=== PATIENT | male | born 1945 | race Caucasian/White ===

== ENCOUNTER 2018-01-26 20:01 | Inpatient (IN) | payer MEDICARE ==
[2018-01-26] MEDS ORDERED: methylPREDNISolone SOD SUCCI 125 MG/2 ML VIAL IV STA (20:17)
[2018-01-26] MEDS ORDERED: IPRATROPIUM 0.5 MG/2.5 ML NEBU INHALATION STA (20:17)
[2018-01-26] MEDS ORDERED: ALBUTEROL NEBULIZED 2.5 MG/3 ML INHALATION STA (20:17)
[2018-01-26 20:51] LABS: Basophils % (A) 0 %; Eosinophils % (A) 0 %; HCT 42.5 % (39.0-53.0); HGB 13.4 gm/dL (13.0-17.5); Lymphocytes # (A) 0.3 k/uL (1.0-4.8); Lymphocytes % (A) 2 %; MCH 30.3 pg (25.0-35.0); MCHC 31.6 g/dL (31.0-37.0); MCV 95.8 fL (80.0-100.0); Mean Platelet Volume 7.2; Monocytes # (A) 0.6 k/uL (0-1.0); Monocytes % (A) 4 %; Neutrophils # (A) 12.2 k/uL (1.3-7.7); Neutrophils % (A) 93 %; Platelet Count 201 k/uL (150-450); RBC 4.44 m/uL (4.30-5.90); RDW 14.7 % (11.5-15.5); WBC 13.2 k/uL (3.8-10.6)
--- NOTE | 2018-01-26 21:00 | XR ---
EXAMINATION TYPE: XR chest 1V portable DATE OF EXAM: 01/26/2018 COMPARISON: NONE HISTORY: Difficulty breathing TECHNIQUE: Single frontal view of the chest is obtained. FINDINGS: Heart appears enlarged. There is some pulmonary interstitial edema. There is very minimal blunting of the costophrenic angles. There are chest leads. IMPRESSION: Changes consistent with mild congestive heart failure.
[2018-01-26 21:01] LABS: INR 1.1 (<1.2); Partial Thromboplastin Time 23.3 sec (22.0-30.0); Prothrombin Time 10.4 sec (9.0-12.0)
[2018-01-26 21:07] LABS: Albumin 4.2 g/dL (3.5-5.0); Calcium 9.1 mg/dL (8.4-10.2); Magnesium 1.7 mg/dL (1.6-2.3); Potassium 4.6 mmol/L (3.5-5.1); Total Bilirubin 0.8 mg/dL (0.2-1.3); Total Protein 7.1 g/dL (6.3-8.2)
[2018-01-26 21:22] LABS: Creatine Kinase MB 6.4 ng/mL (0.0-2.4)
[2018-01-26 21:23] LABS: Troponin I 0.08 ng/mL (0.000-0.034)
[2018-01-26] MEDS ORDERED: FUROSEMIDE 10 MG/ML 4 ML VIAL IV STA (21:24)
[2018-01-26] MEDS ORDERED: ASPIRIN 325 MG TAB PO STA (21:24)
[2018-01-26] MEDS ORDERED: NITROGLYCERIN-D5W PMX 50 MG in DEXTROSE/WATER 1 250ML.BAG IV ONE (21:26)
[2018-01-26] MEDS ORDERED: HEPARIN SODIUM,PORCINE 5,000 UNIT/ML 1 ML VIAL IV ONE (21:27)
[2018-01-26] MEDS ORDERED: HEPARIN SODIUM,PORCINE 5,000 UNIT/ML 1 ML VIAL IV PRN (21:27)
[2018-01-26] MEDS ORDERED: NALOXONE 0.4 MG/ML 1 ML VIAL IV PRN (21:30)
[2018-01-26] MEDS ORDERED: ACETAMINOPHEN TAB 325 MG TAB PO PRN (21:30)
--- NOTE | 2018-01-26 21:37 | ED ---
General Adult HPI - General Chief complaint: Shortness of Breath Stated complaint: SOB Time Seen by Provider: 01/26/18 20:17 Source: patient, RN notes reviewed, old records reviewed Mode of arrival: wheelchair Limitations: no limitations - History of Present Illness Initial comments: 72-year-old male presenting with 2 days of cough and dyspnea. Patient was started on antibiotics and Medrol Dosepak by his primary care physician this morning, symptoms have failed to improve. Cough is dry nonproductive. Denies chest pain. Patient has history of CAD and SC approximately 25 years ago, no history of heart failure. Denies significant lower extremity swelling. Denies fever. Denies chills. Patient is currently smoking. History of COPD. - Related Data Home Medications Medication Instructions Recorded Confirmed Aspirin EC [Ecotrin Low Dose] 81 mg PO DAILY 01/26/18 01/26/18 Azithromycin [Zithromax Z-pack] See Taper PO DAILY 01/26/18 01/26/18 Fenofibrate Nanocrystallized 145 mg PO DAILY 01/26/18 01/26/18 [Tricor] Isosorbide Dinitrate [Isordil] 20 mg PO BID 01/26/18 01/26/18 Linagliptin [Tradjenta] 5 mg PO DAILY 01/26/18 01/26/18 Metoprolol Tartrate [Lopressor] 100 mg PO BID 01/26/18 01/26/18 Omeprazole [PriLOSEC] 20 mg PO DAILY 01/26/18 01/26/18 Pioglitazone [Actos] 45 mg PO DAILY 01/26/18 01/26/18 Simvastatin 40 mg PO HS 01/26/18 01/26/18 amLODIPine BESYLATE/BENAZEPRIL 1 cap PO DAILY 01/26/18 01/26/18 [Lotrel 5-20 mg Capsule] glipiZIDE [Glucotrol] 10 mg PO AC-BID 01/26/18 01/26/18 methylPREDNISolone [Medrol Dose See Taper PO DIRECTED 01/26/18 01/26/18 Pack] Allergies Allergy/AdvReac Type Severity Reaction Status Date / Time No Known Allergies Allergy Verified 01/26/18 21:00 Review of Systems ROS Statement: Those systems with pertinent positive or pertinent negative responses have been documented in the HPI. ROS Other: All systems not noted in ROS Statement are negative. Past Medical History Past Medical History: Hyperlipidemia, Hypertension History of Any Multi-Drug Resistant Organisms: None Reported Past Psychological History: No Psychological Hx Reported Smoking Status: Current every day smoker Past Alcohol Use History: Occasional Past Drug Use History: None Reported General Exam Limitations: no limitations General appearance: alert, in no apparent distress Head exam: Present: atraumatic, normocephalic Eye exam: Present: normal appearance, PERRL ENT exam: Present: normal exam Neck exam: Present: normal inspection. Absent: tenderness, meningismus Respiratory exam: Present: respiratory distress, wheezes, rales, decreased breath sounds Cardiovascular Exam: Present: regular rate, normal rhythm GI/Abdominal exam: Present: soft. Absent: distended, tenderness, guarding Extremities exam: Present: normal inspection, normal capillary refill. Absent: pedal edema Neurological exam: Present: alert, oriented X3, CN II-XII intact. Absent: motor sensory deficit Psychiatric exam: Present: normal affect Skin exam: Present: warm, dry, intact. Absent: cyanosis, diaphoretic Course Vital Signs 01/26/18 01/26/18 01/26/18 20:14 20:17 20:42 Temperature 98.5 F Pulse Rate 123 H 88 Respiratory 36 H 20 Rate Blood Pressure 167/88 O2 Sat by Pulse 77 L 90 L Oximetry 01/26/18 21:03 Temperature Pulse Rate 82 Respiratory 20 Rate Blood Pressure O2 Sat by Pulse Oximetry - Reevaluation(s) Reevaluation #1: 01/26/181999 Patient is initially, tachycardic, hypoxic in the 70s, elevated blood pressure. He is started on BiPAP for moderate respiratory distress. Given steroids, albuterol, and Lasix. EKG Findings - EKG Comments: EKG Findings:: EKG: Sinus rhythm, left atrial enlargement, nonspecific ST segment changes, no ST segment elevation, ST segment depression in lateral precordium with upright T waves, rate of 84, MT interval 154, QRS duration 90, QTC 453 Medical Decision Making - Medical Decision Making 72-year-old male history of COPD and remote history of SC presenting for evaluation of worsening dyspnea over the past 48 hours. On exam patient is in moderate respiratory distress, placed on BiPAP for respiratory support. Chest x -ray is obtained, does show some vascular congestion consistent with CHF, no pneumonia. White blood cell count mildly elevated although patient was initiated on steroids today. Creatinine is 2.06 which is baseline for this patient. Patient does have a mild troponin elevation is 0.08 although this is in the setting of heart failure and CK D. This level will be trended, cardiology placed on consult. BNP is elevated at 6800 consistent with heart failure. Patient is started on nitroglycerin infusion, IV Lasix, and IV heparin in the emergency department. He will be admitted for further evaluation treatment. Echo will be obtained. Cardiology and pulmonology placed on consult. - Lab Data Result diagrams: 01/26/18 20:27 01/26/18 20:27 Lab Results 01/26/18 01/26/18 01/26/18 Range/Units 20:27 20:27 20:27 WBC 13.2 H (3.8-10.6) k/uL RBC 4.44 (4.30-5.90) m/uL Hgb 13.4 (13.0-17.5) gm/dL Hct 42.5 (39.0-53.0) % MCV 95.8 (80.0-100.0) fL MCH 30.3 (25.0-35.0) pg MCHC 31.6 (31.0-37.0) g/dL RDW 14.7 (11.5-15.5) % Plt Count 201 (150-450) k/uL Neutrophils % 93 % Lymphocytes % 2 % Monocytes % 4 % Eosinophils % 0 % Basophils % 0 % Neutrophils # 12.2 H (1.3-7.7) k/uL Lymphocytes # 0.3 L (1.0-4.8) k/uL Monocytes # 0.6 (0-1.0) k/uL Eosinophils # 0.0 (0-0.7) k/uL Basophils # 0.0 (0-0.2) k/uL PT (9.0-12.0) sec INR (<1.2) APTT (22.0-30.0) sec Sodium 140 (137-145) mmol/L Potassium 4.6 (3.5-5.1) mmol/L Chloride 110 H (98-107) mmol/L Carbon Dioxide 18 L (22-30) mmol/L Anion Gap 12 mmol/L BUN 34 H (9-20) mg/dL Creatinine 2.06 H (0.66-1.25) mg/dL Est GFR (CKD-EPI)AfAm 36 (>60 ml/min/1.73 sqM) Est GFR (CKD-EPI)NonAf 31 (>60 ml/min/1.73 sqM) Glucose 244 H (74-99) mg/dL Calcium 9.1 (8.4-10.2) mg/dL Magnesium 1.7 (1.6-2.3) mg/dL Total Bilirubin 0.8 (0.2-1.3) mg/dL AST 28 (17-59) U/L ALT 32 (21-72) U/L Alkaline Phosphatase 52 (38-126) U/L Total Creatine Kinase 320 H (55-170) U/L CK-MB (CK-2) 6.4 H (0.0-2.4) ng/mL CK-MB (CK-2) Rel Index 2.0 Troponin I 0.080 H* (0.000-0.034) ng/mL NT-Pro-B Natriuret Pep pg/mL Total Protein 7.1 (6.3-8.2) g/dL Albumin 4.2 (3.5-5.0) g/dL 01/26/18 01/26/18 Range/Units 20:27 20:27 WBC (3.8-10.6) k/uL RBC (4.30-5.90) m/uL Hgb (13.0-17.5) gm/dL Hct (39.0-53.0) % MCV (80.0-100.0) fL MCH (25.0-35.0) pg MCHC (31.0-37.0) g/dL RDW (11.5-15.5) % Plt Count (150-450) k/uL Neutrophils % % Lymphocytes % % Monocytes % % Eosinophils % % Basophils % % Neutrophils # (1.3-7.7) k/uL Lymphocytes # (1.0-4.8) k/uL Monocytes # (0-1.0) k/uL Eosinophils # (0-0.7) k/uL Basophils # (0-0.2) k/uL PT 10.4 (9.0-12.0) sec INR 1.1 (<1.2) APTT 23.3 (22.0-30.0) sec Sodium (137-145) mmol/L Potassium (3.5-5.1) mmol/L Chloride (98-107) mmol/L Carbon Dioxide (22-30) mmol/L Anion Gap mmol/L BUN (9-20) mg/dL Creatinine (0.66-1.25) mg/dL Est GFR (CKD-EPI)AfAm (>60 ml/min/1.73 sqM) Est GFR (CKD-EPI)NonAf (>60 ml/min/1.73 sqM) Glucose (74-99) mg/dL Calcium (8.4-10.2) mg/dL Magnesium (1.6-2.3) mg/dL Total Bilirubin (0.2-1.3) mg/dL AST (17-59) U/L ALT (21-72) U/L Alkaline Phosphatase (38-126) U/L Total Creatine Kinase (55-170) U/L CK-MB (CK-2) (0.0-2.4) ng/mL CK-MB (CK-2) Rel Index Troponin I (0.000-0.034) ng/mL NT-Pro-B Natriuret Pep 6810 pg/mL Total Protein (6.3-8.2) g/dL Albumin (3.5-5.0) g/dL Critical Care Time Critical Care Time: Yes Total Critical Care Time: 35 Disposition Clinical Impression: Congestive heart failure, Acute exacerbation of chronic obstructive airways disease Disposition: ADMITTED IP TO THIS [facility] Condition: Stable Is patient prescribed a controlled substance at d/c from ED?: No Referrals: Rigo Aranda MD [Primary Care Provider] - 1-2 days Decision to Admit Reason: Admit from EC Decision Date: 01/26/18 Decision Time: 21:37
[2018-01-26] MEDS: HEPARIN SOD,PORK IN 0.45% NACL 25,000 UNIT in 0.45% NACL 1 500ML.BAG IV SCH (22:33)
[2018-01-27 04:10] LABS: Creatine Kinase MB 12.7 ng/mL (0.0-2.4)
[2018-01-27 04:11] LABS: Troponin I 1.1 ng/mL (0.000-0.034)
[2018-01-27 07:28] LABS: Basophils % (A) 0 %; Eosinophils # (A) 0.1 k/uL (0-0.7); Eosinophils % (A) 1 %; HCT 40.8 % (39.0-53.0); HGB 13.1 gm/dL (13.0-17.5); Lymphocytes # (A) 0.3 k/uL (1.0-4.8); Lymphocytes % (A) 4 %; MCH 30.1 pg (25.0-35.0); MCHC 32.2 g/dL (31.0-37.0); MCV 93.5 fL (80.0-100.0); Mean Platelet Volume 7.8; Monocytes # (A) 0.2 k/uL (0-1.0); Monocytes % (A) 2 %; Neutrophils # (A) 7.3 k/uL (1.3-7.7); Neutrophils % (A) 93 %; Platelet Count 164 k/uL (150-450); RBC 4.36 m/uL (4.30-5.90); RDW 14.6 % (11.5-15.5); WBC 7.8 k/uL (3.8-10.6)
[2018-01-27 08:04] LABS: Creatine Kinase MB 14.8 ng/mL (0.0-2.4)
[2018-01-27 08:05] LABS: Troponin I 1.35 ng/mL (0.000-0.034)
[2018-01-27] MEDS ORDERED: BENAZEPRIL PO SCH (09:00)
[2018-01-27] MEDS ORDERED: AMLODIPINE BESYLATE PO SCH (09:00)
[2018-01-27] MEDS: METOPROLOL TARTRATE 50 MG TAB PO SCH ×2 (11:35→20:30)
[2018-01-27] MEDS: ASPIRIN 81 MG PO SCH (11:35)
[2018-01-27] MEDS: FUROSEMIDE 10 MG/ML 4 ML VIAL IV SCH ×2 (11:35→20:29)
[2018-01-27] MEDS ORDERED: amLODIPine 5 MG TAB PO SCH (13:15)
[2018-01-27] MEDS: hydrALAZINE HCL 25 MG TAB PO SCH ×2 (14:20→20:28)
[2018-01-27] MEDS: LISINOPRIL 20 MG TAB PO SCH (14:20)
--- NOTE | 2018-01-27 14:38 | CONS ---
CONSULTATION Mr. Camacho is a 72-year-old male with known history of coronary artery disease who is followed by Dr. Price on a regular basis. He has a remote history of myocardial infarction but has been stable from the cardiac standpoint. Apparently yesterday he became quite short of breath, coughing, and he came into the emergency room. He denies any symptoms of chest pain. He has a history of chronic tobacco use and smokes about a pack and a half a day, history of chronic dyspnea on exertion, but not as bad as today. He is on a BiPAP at the time of my evaluation. He has no history of PND, orthopnea. No significant peripheral edema. He has no dizziness, palpitation, or syncope. His coronary risk factors are remarkable for the history of smoking. He is diabetic, hypertensive and hyperlipidemic in addition to the smoking as noted. MEDICATION: His medications include aspirin, Tricor 145 mg daily, isosorbide dinitrate 20 mg twice a day, Tradjenta, metoprolol tartrate 100 mg twice a day, omeprazole, Actos 45 mg daily, simvastatin 40 mg daily, Lotrel 5/20 mg daily, glipizide 10 mg daily, and he was on methyl prednisolone. REVIEW OF SYSTEMS: RESPIRATORY SYSTEM: He has chronic obstructive lung disease with chronic dyspnea. He has a cough. No fever. GI SYSTEM: No recent GI bleeding. No peptic ulcer disease. SYSTEM: No dysuria or hematuria. NERVOUS SYSTEM: No stroke or seizure. PHYSICAL EXAMINATION: He is a 72-year-old male, alert, mildly dyspneic with BiPAP in place. Blood pressure 175/80 with a heart rate in the 80s. HEAD: Normocephalic. EYES: Sclerae anicteric. NECK: Good carotid upstroke. No bruit. LUNGS: Severe decrease in air exchange with diffuse wheezes bilaterally. HEART: Distant heart sounds, S1, S2, with regular rate and rhythm and a systolic murmur. No diastolic murmur. ABDOMEN: Soft, nontender. Positive bowel sounds. No organomegaly. EXTREMITIES: No edema. LAB DATA: Troponin 0.08, 1.1, 1.3. BUN and creatinine are 34 and 2.06. Hemoglobin is 13.1, white blood cell count 13.2. NT proBNP of 6810. Chest x-ray revealed evidence of congestion. EKG sinus mechanism, normal axis and intervals and nonspecific ST-T wave changes. IMPRESSION: 1. Acute dyspneic event with findings consistent with congestive heart failure on top of chronic obstructive pulmonary disease exacerbation. 2. Troponin elevation; could represent [id number]-elevation myocardial infarction. 3. History of coronary artery disease. 4. History of hypertension. 5. Hyperlipidemia. 6. Diabetes mellitus. 7. Chronic tobacco use. 8. Chronic kidney disease. RECOMMENDATIONS: From the cardiac standpoint, I will continue him on diuresis. Follow his renal function closely. I will review the results of his echocardiogram. He will be seen by the pulmonary service, and depending on his progress, further recommendations will be made. Thank you for this consult. Will follow with you. AMYL / IJN: [id number] /
--- NOTE | 2018-01-27 16:32 | ECHOF ---
Referral Reason:NO MEASUREMENTS -------- HEIGHT: 172.7 cm WEIGHT: 81.6 kg BP: 181/92 IVSd: 1.1 cm (0.6 - 1.1) LVIDd: 4.6 cm (3.9 - 5.3) LVPWd: 1.2 cm (0.6 - 1.1) IVSs: 1.7 cm LVIDs: 3.2 cm LVPWs: 1.6 cm Ao Diam: 3.4 cm (2.0 - 3.7) AV Cusp: 1.7 cm (1.5 - 2.6) LA Diam: 2.7 cm (2.7 - 3.8) MV EXCURSION: 20.824 mm (> 18.000) MV EF SLOPE: 178 mm/s (70 - 150) EPSS: 2.2 cm MV E Irving: 0.74 m/s MV DecT: 145 ms MV A Irving: 0.63 m/s MV E/A Ratio: 1.17 AV maxP.17 mmHg AV meanP.47 mmHg RAP: 5.00 mmHg RVSP: 10.57 mmHg FINDINGS -------- Sinus rhythm. This was a technically difficult study with suboptimal views. The left ventricular size is normal. Left ventricular wall thickness is normal. Overall left vent ricular systolic function is normal with, an EF between 55 - 60 %. The RV was not well visualized. The left atrium is normal in size. The right atrium was not well visualized. Lumason used The aortic valve was not well visualized. There is mild aortic valve sclerosis. Peak/mean gradien t across the Aortic Valve is 10.17mmHg / 6.47mmHg. Mild mitral annular calcification present. There is trace mitral regurgitation. Trace tricuspid regurgitation present. The right ventricular systolic pressure, as measured by Dopp ler, is 10.57mmHg. The pulmonic valve was not well visualized. The aortic root size is normal. There is no pericardial effusion. CONCLUSIONS -------- 1. Sinus rhythm. 2. This was a technically difficult study with suboptimal views. 3. The left ventricular size is normal. 4. Left ventricular wall thickness is normal. 5. Overall left ventricular systolic function is normal with, an EF between 55 - 60 %. 6. The RV was not well visualized. 7. The left atrium is normal in size. 8. Lumason used 9. The aortic valve was not well visualized. 10. There is mild aortic valve sclerosis. 11. Peak/mean gradient across the Aortic Valve is 10.17mmHg / 6.47mmHg. 12. Mild mitral annular calcification present. 13. There is trace mitral regurgitation. 14. Trace tricuspid regurgitation present. 15. The right ventricular systolic pressure, as measured by Doppler, is 10.57mmHg. 16. The pulmonic valve was not well visualized. 17. The aortic root size is normal. 18. There is no pericardial effusion. BEAUTY ARTIST: Leta Mae RDCS
--- NOTE | 2018-01-27 16:45 | P.CNPUL ---
History of Present Illness Consult date: 01/27/18 Reason for consult: dyspnea History of present illness: 72-year-old male patient with known history of coronary artery disease and remote history of myocardial infarction presented to the hospital yesterday because of cough, shortness of breath without having any significant chest pain. He is a chronic smoker and smokes around one pack a day on a daily basis. The patient presented to the emergency department with significant shortness of breath. He was placed on BiPAP for respiratory support. His EKG is showing normal sinus rhythm without any significant ST segment elevation. This some nonspecific depressions. Troponins are positive with levels are being 0.08, 1.1 and 1.3 respectively consistent with possible non-STEMI. The patient had a BNP level of 6810. Chest x-ray showed evidence of mild pulmonary vascular congestion consistent with heart failure. The patient also has underlying cardiac megaly. No clear aspirate disease. The severity of the small right-sided pleural effusion cannot be completely excluded. The patient currently is on telemetry unit. The patient is on IV heparin. The patient is also on aspirin. He was started on metoprolol 100 mg by mouth twice a day. He is also receiving Lasix 40 mg IV push every 12 hours. He is also on a combination of Zestril and hydralazine. He was seen by cardiology. The patient seems to have a chronic kidney failure in addition. Creatinine is around 2.0 which is consistent with stage III chronic kidney failure. His other comorbidities include hypertension, hyperlipidemia, diabetes mellitus, bladder cancer Review of Systems Constitutional: Reports fatigue Eyes: denies blurred vision, denies bulging eye, denies decreased vision Ears: deny: decreased hearing, ear discharge, earache, tinnitus Ears, nose, mouth and throat: Denies headache, Denies sore throat Cardiovascular: Reports chest pain, Reports decreased exercise tolerance, Reports dyspnea on exertion, Reports shortness of breath Respiratory: Reports cough, Reports dyspnea, Reports wheezing Gastrointestinal: Denies abdominal pain, Denies diarrhea, Denies nausea, Denies vomiting Genitourinary: Reports as per HPI Musculoskeletal: Reports as per HPI Musculoskeletal: absent: ankle pain, ankle stiffness, ankle swelling Integumentary: Denies pruritus, Denies rash Neurological: Reports as per HPI Psychiatric: Reports as per HPI Endocrine: Reports as per HPI Hematologic/Lymphatic: Reports as per HPI Allergic/Immunologic: Reports as per HPI Past Medical History Past Medical History: Hyperlipidemia, Hypertension Additional Past Medical History / Comment(s): diabetes mellitus, chronic stage III kidney failure, hypertension, hyperlipidemia, coronary artery disease with remote history of myocardial infarction LA bladder cancers post transurethral resection followed by intravesical chemotherapy History of Any Multi-Drug Resistant Organisms: None Reported Past Psychological History: No Psychological Hx Reported Smoking Status: Current every day smoker Past Alcohol Use History: Occasional Past Drug Use History: None Reported - Past Family History Brother(s) Family Medical History: Coronary Artery Disease (CAD) Medications and Allergies Home Medications Medication Instructions Recorded Confirmed Type Aspirin EC [Ecotrin Low Dose] 81 mg PO DAILY 01/26/18 01/26/18 History Azithromycin [Zithromax Z-pack] See Taper PO DAILY 01/26/18 01/26/18 History Fenofibrate Nanocrystallized 145 mg PO DAILY 01/26/18 01/26/18 History [Tricor] Isosorbide Dinitrate [Isordil] 20 mg PO BID 01/26/18 01/26/18 History Linagliptin [Tradjenta] 5 mg PO DAILY 01/26/18 01/26/18 History Metoprolol Tartrate [Lopressor] 100 mg PO BID 01/26/18 01/26/18 History Omeprazole [PriLOSEC] 20 mg PO DAILY 01/26/18 01/26/18 History Pioglitazone [Actos] 45 mg PO DAILY 01/26/18 01/26/18 History Simvastatin 40 mg PO HS 01/26/18 01/26/18 History amLODIPine BESYLATE/BENAZEPRIL 1 cap PO DAILY 01/26/18 01/26/18 History [Lotrel 5-20 mg Capsule] glipiZIDE [Glucotrol] 10 mg PO AC-BID 01/26/18 01/26/18 History methylPREDNISolone [Medrol Dose See Taper PO DIRECTED 01/26/18 01/26/18 History Pack] Allergies Allergy/AdvReac Type Severity Reaction Status Date / Time No Known Allergies Allergy Verified 01/26/18 21:00 Physical Exam Vitals: Vital Signs Temp Pulse Pulse Resp BP BP Pulse Ox 01/27/18 12:00 97.8 F 116 H 28 H 194/76 90 L 01/27/18 08:00 97.3 F L 93 20 178/85 98 01/27/18 07:00 86 17 175/85 96 01/27/18 06:00 86 21 171/82 97 01/27/18 05:00 79 20 168/80 97 01/27/18 04:30 87 21 168/80 97 01/27/18 04:00 85 22 155/86 96 01/27/18 03:00 85 23 155/86 96 01/27/18 02:45 86 23 185/92 96 01/27/18 02:00 90 27 H 185/92 98 01/27/18 01:00 82 23 187/95 98 01/27/18 00:30 86 30 H 162/93 97 01/27/18 00:00 82 27 H 159/86 96 01/26/18 23:00 85 28 H 181/94 98 01/26/18 22:30 85 36 H 173/95 98 01/26/18 22:00 80 33 H 184/95 98 01/26/18 21:30 83 31 H 177/100 94 L 01/26/18 21:03 82 20 01/26/18 21:00 89 34 H 185/97 98 01/26/18 20:42 88 20 01/26/18 20:30 96 38 H 185/95 97 01/26/18 20:17 90 L 01/26/18 20:14 98.5 F 123 H 36 H 167/88 93 L Intake and Output 01/27/18 01/27/18 01/27/18 06:59 14:59 22:59 Intake Total 277.73 Output Total 950 425 Balance -950 -147.27 Intake: Intake, IV Titration 277.73 Amount Heparin Sod,Pork in 0.45% 277.73 NaCl 25,000 unit In 0.45 % NaCl 1 500ml.bag @ 12 UNITS/KG/HR 19.59 mls/hr IV .Q24H [facility] Rx#: [id number] Output: Urine 950 425 Other: Voiding Method Urinal Gen. appearance the patient is a mild degree of respiratory distress. Utilizing BiPAP currently at the pressure of 12/5 with an FiO2 of 40% to maintain a saturation above 90%. Head exam was generally normal. There was no scleral icterus or corneal arcus. Mucous membranes were moist. Neck was supple and without jugular venous distension, thyromegaly, or carotid bruits. Carotids were easily palpable bilaterally. There was no adenopathy. Lungs sounds are diminished bilaterally along with scattered expiratory wheezes throughout the lung his bilaterally. Heart sounds are distant. Otherwise, Cardiac exam revealed the PMI to be normally situated and sized. The rhythm was regular and no extrasystoles were noted during several minutes of auscultation. The first and second heart sounds were normal and physiologic splitting of the second heart sound was noted. There were no murmurs, rubs, clicks, or gallops. Abdominal exam revealed normal bowel sounds. The abdomen was soft, non-tender, and without masses, organomegaly, or appreciable enlargement of the abdominal aorta. Examination of the extremities revealed easily palpable radial, femoral and pedal pulses. There was no cyanosis, clubbing or edema. Examination of the skin revealed no evidence of significant rashes, suspicious appearing nevi or other concerning lesions. Neurologically awake and alert there is no focal logical deficits. Results - Laboratory Findings CBC and BMP: 01/27/18 07:14 01/26/18 20:27 PT/INR, D-dimer PT 10.4 sec (9.0-12.0) 01/26/18 20:27 INR 1.1 (<1.2) 01/26/18 20:27 Abnormal lab findings: Abnormal Labs 01/26/18 01/26/18 01/26/18 20:27 20:27 20:27 WBC 13.2 H Neutrophils # 12.2 H Lymphocytes # 0.3 L APTT Chloride 110 H Carbon Dioxide 18 L BUN 34 H Creatinine 2.06 H Glucose 244 H Total Creatine Kinase 320 H CK-MB (CK-2) 6.4 H Troponin I 0.080 H* 01/27/18 01/27/18 01/27/18 03:18 03:18 07:14 WBC Neutrophils # Lymphocytes # 0.3 L APTT 45.8 H Chloride Carbon Dioxide BUN Creatinine Glucose Total Creatine Kinase 377 H CK-MB (CK-2) 12.7 H Troponin I 1.100 H* 01/27/18 01/27/18 01/27/18 07:14 07:14 11:28 WBC Neutrophils # Lymphocytes # APTT 42.3 H 43.4 H Chloride Carbon Dioxide BUN Creatinine Glucose Total Creatine Kinase 394 H CK-MB (CK-2) 14.8 H Troponin I 1.350 H* - Diagnostic Findings Chest x-ray: image reviewed Assessment and Plan Plan: Assessment 1 acute dyspnea associated with a component of CHF/pulmonary edema. Patient also has underlying COPD contributing for shortness of breath. The patient continues to BE short of breath and the patient is BiPAP dependent at the current settings. 2 acute non-ST segment elevation myocardial infarction with troponin peak of 1.3 without any significant or specific ST segment changes on the EKG 3 known history of coronary artery disease with remote history of myocardial infarction 4 hypertension 5 hyperlipidemia 6 diabetes mellitus 7 chronic stage III kidney failure 8 smoker 9 polycystic kidney disease 10 history of bladder cancer post-transurethral resection followed by intravesicular chemotherapy Plan Continue IV heparin. Continue aspirin. Continue beta blockers and ximena inhibitors and hydralazine for blood pressure control. Monitor blood sugar and utilize sliding scale insulin coverage for blood sugar control. Patient is also nitroglycerin drip. The patient was seen by cardiology. Echo cardiogram was ordered. Currently without his IV Lasix. In terms of his COPD exacerbation , the patient will be placed on DuoNeb neb last 2 units [id number]. We' ll start also IV Solu Medrol 40 mg every 6 hours. Monitor the blood sugar and utilize a cystitis scale for blood sugar control.
--- NOTE | 2018-01-27 17:15 | P.HPIM ---
History of Present Illness On-call hospitalist covering Dr. Aranda This is a pleasant 72 years old male with past medical history of hypertension and hyperlipidemia, chronic kidney disease stage III. presents with dyspnea of 1 -2 days duration with no associated chest pain , pt complains also from orthopnea and paroxymal nocturnal dyspnea. pt has elevated troponin and ProBNP and elements of pulmonary congestion on chest x-ray. On admission patient was noticed to have elevated troponin 0.08-1.3 with elevated proBNP at 6800. Patient creatinine is 2.0 which is at baseline Review of Systems CONSTITUTIONAL: No fever, no malaise, no fatigue. HEENT: No recent visual problems or hearing problems. Denied any sore throat. CARDIOVASCULAR: No orthopnea, PND, no palpitations, no syncope. PULMONARY: No shortness of breath, no cough, no hemoptysis. GASTROINTESTINAL: No diarrhea, no nausea, no vomiting, no abdominal pain. Normoactive bowel sounds. NEUROLOGICAL: No headaches, no weakness, no numbness. HEMATOLOGICAL: Denies any bleeding or petechiae. GENITOURINARY: Denies any burning micturition, frequency, or urgency. MUSCULOSKELETAL/RHEUMATOLOGICAL: Denies any joint pain, swelling, or any muscle pain. ENDOCRINE: Denies any polyuria or polydipsia. Past Medical History Past Medical History: Hyperlipidemia, Hypertension History of Any Multi-Drug Resistant Organisms: None Reported Past Psychological History: No Psychological Hx Reported Smoking Status: Current every day smoker Past Alcohol Use History: Occasional Past Drug Use History: None Reported - Past Family History Brother(s) Family Medical History: Coronary Artery Disease (CAD) Medications and Allergies Home Medications Medication Instructions Recorded Confirmed Type Azithromycin [Zithromax Z-pack] See Taper PO DAILY 01/26/18 01/26/18 History Fenofibrate Nanocrystallized 145 mg PO DAILY 01/26/18 01/26/18 History [Tricor] Isosorbide Dinitrate [Isordil] 20 mg PO BID 01/26/18 01/26/18 History Linagliptin [Tradjenta] 5 mg PO DAILY 01/26/18 01/26/18 History Metoprolol Tartrate [Lopressor] 100 mg PO BID 01/26/18 01/26/18 History Omeprazole [PriLOSEC] 20 mg PO DAILY 01/26/18 01/26/18 History RX: Aspirin EC [Ecotrin Low Dose] 81 mg PO DAILY 01/26/18 01/26/18 History RX: Pioglitazone [Actos] 45 mg PO DAILY 01/26/18 01/26/18 History RX: Simvastatin 40 mg PO HS 01/26/18 01/26/18 History amLODIPine BESYLATE/BENAZEPRIL 1 cap PO DAILY 01/26/18 01/26/18 History [Lotrel 5-20 mg Capsule] glipiZIDE [Glucotrol] 10 mg PO AC-BID 01/26/18 01/26/18 History methylPREDNISolone [Medrol Dose See Taper PO DIRECTED 01/26/18 01/26/18 History Pack] Allergies Allergy/AdvReac Type Severity Reaction Status Date / Time No Known Allergies Allergy Verified 01/26/18 21:00 Physical Exam Vitals: Vital Signs Temp Pulse Resp BP Pulse Ox 01/27/18 07:00 86 17 175/85 96 01/27/18 06:00 86 21 171/82 97 01/27/18 05:00 79 20 168/80 97 01/27/18 04:30 87 21 168/80 97 01/27/18 04:00 85 22 155/86 96 01/27/18 03:00 85 23 155/86 96 01/27/18 02:45 86 23 185/92 96 01/27/18 02:00 90 27 H 185/92 98 01/27/18 01:00 82 23 187/95 98 01/27/18 00:30 86 30 H 162/93 97 01/27/18 00:00 82 27 H 159/86 96 01/26/18 23:00 85 28 H 181/94 98 01/26/18 22:30 85 36 H 173/95 98 01/26/18 22:00 80 33 H 184/95 98 01/26/18 21:30 83 31 H 177/100 94 L 01/26/18 21:03 82 20 01/26/18 21:00 89 34 H 185/97 98 01/26/18 20:42 88 20 01/26/18 20:30 96 38 H 185/95 97 01/26/18 20:17 90 L 01/26/18 20:14 98.5 F 123 H 36 H 167/88 93 L Intake and Output 01/26/18 01/27/18 01/27/18 22:59 06:59 14:59 Intake Total 177.29 Output Total 950 Balance -950 177.29 Intake: Intake, IV Titration 177.29 Amount Heparin Sod,Pork in 0.45% 177.29 NaCl 25,000 unit In 0.45 % NaCl 1 500ml.bag @ 12 UNITS/KG/HR 19.59 mls/hr IV .Q24H [facility] Rx#: [id number] Output: Urine 950 Other: Weight 81.647 kg GENERAL: The patient is alert and oriented x3, not in any acute distress. Well developed, well nourished. HEENT: Pupils are round and equally reacting to light. EOMI. No scleral icterus. No conjunctival pallor. Normocephalic, atraumatic. No pharyngeal erythema. No thyromegaly. CARDIOVASCULAR: S1 and S2 present. No murmurs, rubs, or gallops. PULMONARY: Chest is clear to auscultation, no wheezing or crackles. ABDOMEN: Soft, nontender, nondistended, normoactive bowel sounds. No palpable organomegaly. MUSCULOSKELETAL: No joint swelling or deformity. EXTREMITIES: No cyanosis, clubbing, or pedal edema. NEUROLOGICAL: Gross neurological examination did not reveal any focal deficits. SKIN: No rashes. Results CBC & Chem 7: 01/27/18 07:14 01/26/18 20:27 Labs: Abnormal Lab Results - Last 24 Hours (Table) 01/26/18 01/26/18 01/26/18 Range/Units 20:27 20:27 20:27 WBC 13.2 H (3.8-10.6) k/uL Neutrophils # 12.2 H (1.3-7.7) k/uL Lymphocytes # 0.3 L (1.0-4.8) k/uL APTT (22.0-30.0) sec Chloride 110 H (98-107) mmol/L Carbon Dioxide 18 L (22-30) mmol/L BUN 34 H (9-20) mg/dL Creatinine 2.06 H (0.66-1.25) mg/dL Glucose 244 H (74-99) mg/dL Total Creatine Kinase 320 H (55-170) U/L CK-MB (CK-2) 6.4 H (0.0-2.4) ng/mL Troponin I 0.080 H* (0.000-0.034) ng/mL 01/27/18 01/27/18 01/27/18 Range/Units 03:18 03:18 07:14 WBC (3.8-10.6) k/uL Neutrophils # (1.3-7.7) k/uL Lymphocytes # 0.3 L (1.0-4.8) k/uL APTT 45.8 H (22.0-30.0) sec Chloride (98-107) mmol/L Carbon Dioxide (22-30) mmol/L BUN (9-20) mg/dL Creatinine (0.66-1.25) mg/dL Glucose (74-99) mg/dL Total Creatine Kinase 377 H (55-170) U/L CK-MB (CK-2) 12.7 H (0.0-2.4) ng/mL Troponin I 1.100 H* (0.000-0.034) ng/mL 01/27/18 01/27/18 Range/Units 07:14 07:14 WBC (3.8-10.6) k/uL Neutrophils # (1.3-7.7) k/uL Lymphocytes # (1.0-4.8) k/uL APTT 42.3 H (22.0-30.0) sec Chloride (98-107) mmol/L Carbon Dioxide (22-30) mmol/L BUN (9-20) mg/dL Creatinine (0.66-1.25) mg/dL Glucose (74-99) mg/dL Total Creatine Kinase 394 H (55-170) U/L CK-MB (CK-2) 14.8 H (0.0-2.4) ng/mL Troponin I 1.350 H* (0.000-0.034) ng/mL Assessment and Plan Assessment: Acute coronary syndrome with elevated troponin, NSTEMI acute CHF acute COPD exacerbation History of hyperlipidemia Hypertension, essential Chronic kidney disease stage III Leukocytosis, resolved Plan: This is a pleasant 72 years old male who presents with NSTMI and acute systolic CHF. Cardiology has been consulted. Patient already on heparin drip as well as aspirated and beta luisa and Lasix 40 mg IV twice a day recurrent continue with Lipitor. pulmonary input is appreciated. Rest of labs and medication were reviewed. Continue same treatment. Continue with symptomatic treatment. Resume home medication. Monitor lytes and vitals. DVT and GI prophylaxis. Further recommendationsof the clinical course of the patient DVT prophylaxis: heparin GI Prophylaxis: Pepcid PT/OT: on hold Prognosis is guarded
[2018-01-27] MEDS: methylPREDNISolone SOD SUCCI 125 MG/2 ML VIAL IV SCH ×2 (17:23→23:39)
[2018-01-27] MEDS: IPRATROPIUM-ALBUTEROL 3 ML NEB INHALATION SCH (19:12)
[2018-01-27] MEDS: ATORVASTATIN 20 MG TAB PO SCH (20:29)
[2018-01-27] MEDS: amLODIPine 5 MG TAB PO SCH (20:29)
[2018-01-27 20:46] LABS: Glucose,Whole Blood 269 mg/dL (75-99)
[2018-01-27] MEDS ORDERED: FAMOTIDINE 20 MG/2 ML VIAL IV SCH (21:00)
[2018-01-27] MEDS: HEPARIN SOD,PORK IN 0.45% NACL 25,000 UNIT in 0.45% NACL 1 500ML.BAG IV SCH (23:38)
[2018-01-27] MEDS ORDERED: NITROGLYCERIN-D5W PMX 50 MG in DEXTROSE/WATER 1 250ML.BAG IV SCH (23:45)
[2018-01-28 06:23] LABS: Glucose,Whole Blood 248 mg/dL (75-99)
[2018-01-28 06:38] LABS: Basophils % (A) 0 %; Eosinophils % (A) 0 %; HCT 39.8 % (39.0-53.0); HGB 12.7 gm/dL (13.0-17.5); Lymphocytes # (A) 0.3 k/uL (1.0-4.8); Lymphocytes % (A) 2 %; MCH 29.5 pg (25.0-35.0); MCHC 31.9 g/dL (31.0-37.0); MCV 92.7 fL (80.0-100.0); Mean Platelet Volume 7.8; Monocytes # (A) 0.3 k/uL (0-1.0); Monocytes % (A) 2 %; Neutrophils # (A) 13.2 k/uL (1.3-7.7); Neutrophils % (A) 95 %; Platelet Count 172 k/uL (150-450); RBC 4.29 m/uL (4.30-5.90); RDW 14.7 % (11.5-15.5); WBC 13.9 k/uL (3.8-10.6)
[2018-01-28] MEDS: methylPREDNISolone SOD SUCCI 125 MG/2 ML VIAL IV SCH ×3 (06:38→17:08)
[2018-01-28] MEDS: INSULIN ASPART 100 UNIT/ML 1 ML 10 ML VIAL SQ SCH ×4 (06:38→20:40)
[2018-01-28 07:02] LABS: Calcium 8.8 mg/dL (8.4-10.2); Potassium 4.2 mmol/L (3.5-5.1)
[2018-01-28] MEDS: hydrALAZINE HCL 25 MG TAB PO SCH ×2 (07:49→20:00)
[2018-01-28] MEDS: amLODIPine 5 MG TAB PO SCH ×2 (07:49→20:40)
[2018-01-28] MEDS: ASPIRIN 81 MG PO SCH (07:49)
[2018-01-28] MEDS: FAMOTIDINE 20 MG TAB PO SCH (07:49)
[2018-01-28] MEDS: LISINOPRIL 20 MG TAB PO SCH (07:49)
[2018-01-28] MEDS: FUROSEMIDE 10 MG/ML 4 ML VIAL IV SCH ×2 (07:50→20:40)
[2018-01-28] MEDS: METOPROLOL TARTRATE 50 MG TAB PO SCH ×2 (07:50→20:39)
[2018-01-28] MEDS: IPRATROPIUM-ALBUTEROL 3 ML NEB INHALATION SCH ×4 (08:01→19:27)
[2018-01-28] MEDS ORDERED: DILTIAZEM 5 MG/ML 5 ML VIAL IV ONE (08:49)
[2018-01-28] MEDS ORDERED: amLODIPine 5 MG TAB PO SCH (09:00)
[2018-01-28 09:30] LABS: Magnesium 2.2 mg/dL (1.6-2.3)
--- NOTE | 2018-01-28 10:39 | P.PN ---
Subjective On-call hospitalist covering Dr. Aranda This is a pleasant 72 years old male with past medical history of hypertension and hyperlipidemia, chronic kidney disease stage III. presents with dyspnea of 1 -2 days duration with no associated chest pain , pt complains also from orthopnea and paroxymal nocturnal dyspnea. pt has elevated troponin and ProBNP and elements of pulmonary congestion on chest x-ray. On admission patient was noticed to have elevated troponin 0.08-1.3 with elevated proBNP at 6800. Patient creatinine is 2.0 which is at baseline 01/28/2018 Patient breathing is better as and his dyspnea is improving. He denies chest pain. However on exam patient is still tachypneic and he has wheezing with prolonged expiratory phase. No much of crepitation. Patient is still on heparin drip and Solu-Medrol. There is little tachycardic and hypertensive. Has mild leukocytosis of 13.9 K however patient is on steroids. Creatinine is slightly better from 2.0 to 1.8. TSH is low at 0.12, free T4 is pending Objective - Vital Signs Vital signs: Vital Signs Temp 98.0 F 01/28/18 08:00 Pulse 105 H 01/28/18 08:15 Resp 22 01/28/18 08:00 BP 159/82 01/28/18 08:00 Pulse Ox 93 L 01/28/18 08:03 Intake & Output 01/27/18 01/28/18 01/28/18 18:59 06:59 18:59 Intake Total 277.73 222.27 Output Total 925 1000 Balance -647.27 -777.73 Weight 80.2 kg Intake: Intake, IV Titration 277.73 222.27 Amount Heparin Sod,Pork in 0.45% 277.73 222.27 NaCl 25,000 unit In 0.45 % NaCl 1 500ml.bag @ 12 UNITS/KG/HR 19.59 mls/hr IV .Q24H [facility] Rx#: [id number] Output: Urine 925 1000 Other: Voiding Method Urinal Urinal Urinal # Voids 1 - Exam GENERAL: The patient is alert and oriented x3, not in any acute distress. Well developed, well nourished. HEENT: Pupils are round and equally reacting to light. EOMI. No scleral icterus. No conjunctival pallor. Normocephalic, atraumatic. No pharyngeal erythema. No thyromegaly. CARDIOVASCULAR: S1 and S2 present. No murmurs, rubs, or gallops. PULMONARY: Chest is clear to auscultation, no wheezing or crackles. ABDOMEN: Soft, nontender, nondistended, normoactive bowel sounds. No palpable organomegaly. MUSCULOSKELETAL: No joint swelling or deformity. EXTREMITIES: No cyanosis, clubbing, or pedal edema. NEUROLOGICAL: Gross neurological examination did not reveal any focal deficits. SKIN: No rashes. - Labs CBC & Chem 7: 01/28/18 05:35 01/28/18 05:35 Labs: Abnormal Lab Results - Last 24 Hours (Table) 01/27/18 01/27/18 01/27/18 Range/Units 11:28 18:39 20:38 WBC (3.8-10.6) k/uL RBC (4.30-5.90) m/uL Hgb (13.0-17.5) gm/dL Neutrophils # (1.3-7.7) k/uL Lymphocytes # (1.0-4.8) k/uL APTT 43.4 H 55.5 H (22.0-30.0) sec Chloride (98-107) mmol/L BUN (9-20) mg/dL Creatinine (0.66-1.25) mg/dL Glucose (74-99) mg/dL POC Glucose (mg/dL) 269 H (75-99) mg/dL TSH (0.465-4.680) mIU/L 01/28/18 01/28/18 01/28/18 Range/Units 05:35 05:35 05:35 WBC 13.9 H (3.8-10.6) k/uL RBC 4.29 L (4.30-5.90) m/uL Hgb 12.7 L (13.0-17.5) gm/dL Neutrophils # 13.2 H (1.3-7.7) k/uL Lymphocytes # 0.3 L (1.0-4.8) k/uL APTT 71.2 H (22.0-30.0) sec Chloride 109 H (98-107) mmol/L BUN 55 H (9-20) mg/dL Creatinine 1.89 H (0.66-1.25) mg/dL Glucose 267 H (74-99) mg/dL POC Glucose (mg/dL) (75-99) mg/dL TSH (0.465-4.680) mIU/L 01/28/18 01/28/18 Range/Units 05:35 06:06 WBC (3.8-10.6) k/uL RBC (4.30-5.90) m/uL Hgb (13.0-17.5) gm/dL Neutrophils # (1.3-7.7) k/uL Lymphocytes # (1.0-4.8) k/uL APTT (22.0-30.0) sec Chloride (98-107) mmol/L BUN (9-20) mg/dL Creatinine (0.66-1.25) mg/dL Glucose (74-99) mg/dL POC Glucose (mg/dL) 248 H (75-99) mg/dL TSH 0.127 L (0.465-4.680) mIU/L Microbiology - Last 24 Hours (Table) 01/26/18 20:27 Blood Culture - Preliminary Blood No Growth after 24 hours Assessment and Plan Assessment: Acute coronary syndrome with elevated troponin, NSTEMI acute CHF acute COPD exacerbation Low TSH, follow-up thyroid function test of T4 History of hyperlipidemia Hypertension, essential Chronic kidney disease stage III Leukocytosis, resolved Plan: This is a pleasant 72 years old male who presents with NSTMI and acute systolic CHF. Cardiology has been consulted. Patient already on heparin drip as well as aspirated and beta luisa and Lasix 40 mg IV twice a day recurrent continue with Lipitor. pulmonary input is appreciated. Rest of labs and medication were reviewed. Continue same treatment. Continue with symptomatic treatment. Resume home medication. Monitor lytes and vitals. DVT and GI prophylaxis. Further recommendationsof the clinical course of the patient DVT prophylaxis: heparin GI Prophylaxis: Pepcid PT/OT: on hold Prognosis is guarded
[2018-01-28 11:40] LABS: T4, Free (Free Thyroxine) 1.78 ng/dL (0.78-2.19)
[2018-01-28 11:55] LABS: Glucose,Whole Blood 357 mg/dL (75-99)
[2018-01-28] MEDS: ISOSORBIDE MONONITRATE ER 30 MG TAB.ER.24H PO SCH (12:07)
--- NOTE | 2018-01-28 12:17 | P.PN ---
Subjective Mr. Camacho is seen and examined sitting up in bed. Past medical history significant for coronary artery disease, myocardial infarction 25-30 years ago with no stents at that time. He also has dyslipidemia, hypertension, diabetes mellitus, chronic kidney disease, chronic nicotine dependence, COPD and history of bladder cancer status post resection. He follows with Dr. Price in the office. We are following him secondary to shortness of breath. He has also been seen in consultation by pulmonary services and started on IV steroids and breathing treatments. He denies symptoms of chest pain. He seems to be mildly short of breath at this time my exam. BiPAP was used through the night. He is currently breathing on nasal cannula. Nurse at the bedside to reapply the BiPAP. Telemetry tracings indicate he has chronic atrial fibrillation with a mildly rapid ventricular response heart rate in the 130s. He denies symptoms of palpitations or dizziness. Laboratory data reviewed, WBC 13.9, hemoglobin 12.7, platelets 172, sodium 140, potassium 4.2, creatinine 1.89, TSH 0.127 with pending free T4. Magnesium 2.2. Blood pressure 159/80 heart rate fluctuating between 100-115. He has received one dose of IV Cardizem 10 mg. Echocardiogram obtained reveals preserved left ventricular systolic function with ejection fraction 55-60%, aortic valve stenosis with a mean gradient across the valve 6 with 47 mmHg. GENERAL: This is a 72-year-old occasion male in no apparent distress at the time of my examination. HEENT: Head is atraumatic, normocephalic. Pupils are equal, round. Sclerae anicteric. Conjunctivae are clear. Mucous membranes of the mouth are moist. Neck is supple. There is no jugular venous distention. No carotid bruit is heard. LUNGS: Expiratory wheezes, faint bibasilar ralies. No rhonchi. No chest wall tenderness is noted on palpation or with deep breathing. Diminished bilaterally. HEART: Irregular rate and rhythm with systolic ejection murmur at the base, no rubs or gallops. S1 and S2 heard. ABDOMEN: Soft, nontender. Bowel sounds are heard. No organomegaly noted. EXTREMITIES: No evidence of peripheral edema and no calf tenderness noted. VASCULAR: Radial and dorsalis pedis pulses palpated, no evidence of clubbing. NEUROLOGIC: Patient is awake, alert and oriented x3. ASSESSMENT Acute diastolic heart failure on top of COPD exacerbation New-onset paroxysmal atrial fibrillation with rapid ventricular response Aortic stenosis Troponin elevation, could represent [id number] elevated MD History of coronary artery disease, patient states he underwent cardiac catheterization 2024 years ago. Hypertension Dyslipidemia Diabetes mellitus Chronic kidney disease, GFR 34 Chronic nicotine dependence PLAN He has converted back to sinus mechanism. Continue heparin infusion for another 24 hours and we will start on ocean transportation intermediary anticoagulation for thromboembolic protection. Discontinue nitropaste. Initiate on imdur 30 mg daily to decrease preload. Continue lasix IV 40 mg BID. We will continue to follow closely and make further recommendations accordingly. Nurse Practitioner note has been reviewed, I agree with a documented findings and plan of care. Patient was seen and examined. Objective - Vital Signs Vital signs: Vital Signs Temp 98.0 F 01/28/18 08:00 Pulse 105 H 01/28/18 08:15 Resp 22 01/28/18 08:00 BP 159/82 01/28/18 08:00 Pulse Ox 93 L 01/28/18 08:03 Intake & Output 01/27/18 01/28/18 01/28/18 18:59 06:59 18:59 Intake Total 277.73 222.27 Output Total 925 1000 Balance -647.27 -777.73 Weight 80.2 kg Intake: Intake, IV Titration 277.73 222.27 Amount Heparin Sod,Pork in 0.45% 277.73 222.27 NaCl 25,000 unit In 0.45 % NaCl 1 500ml.bag @ 12 UNITS/KG/HR 19.59 mls/hr IV .Q24H [facility] Rx#: [id number] Output: Urine 925 1000 Other: Voiding Method Urinal Urinal Urinal # Voids 1 - Labs CBC & Chem 7: 01/28/18 05:35 01/28/18 05:35 Labs: Abnormal Lab Results - Last 24 Hours (Table) 01/27/18 01/27/18 01/27/18 Range/Units 11:28 18:39 20:38 WBC (3.8-10.6) k/uL RBC (4.30-5.90) m/uL Hgb (13.0-17.5) gm/dL Neutrophils # (1.3-7.7) k/uL Lymphocytes # (1.0-4.8) k/uL APTT 43.4 H 55.5 H (22.0-30.0) sec Chloride (98-107) mmol/L BUN (9-20) mg/dL Creatinine (0.66-1.25) mg/dL Glucose (74-99) mg/dL POC Glucose (mg/dL) 269 H (75-99) mg/dL TSH (0.465-4.680) mIU/L 01/28/18 01/28/18 01/28/18 Range/Units 05:35 05:35 05:35 WBC 13.9 H (3.8-10.6) k/uL RBC 4.29 L (4.30-5.90) m/uL Hgb 12.7 L (13.0-17.5) gm/dL Neutrophils # 13.2 H (1.3-7.7) k/uL Lymphocytes # 0.3 L (1.0-4.8) k/uL APTT 71.2 H (22.0-30.0) sec Chloride 109 H (98-107) mmol/L BUN 55 H (9-20) mg/dL Creatinine 1.89 H (0.66-1.25) mg/dL Glucose 267 H (74-99) mg/dL POC Glucose (mg/dL) (75-99) mg/dL TSH (0.465-4.680) mIU/L 01/28/18 01/28/18 Range/Units 05:35 06:06 WBC (3.8-10.6) k/uL RBC (4.30-5.90) m/uL Hgb (13.0-17.5) gm/dL Neutrophils # (1.3-7.7) k/uL Lymphocytes # (1.0-4.8) k/uL APTT (22.0-30.0) sec Chloride (98-107) mmol/L BUN (9-20) mg/dL Creatinine (0.66-1.25) mg/dL Glucose (74-99) mg/dL POC Glucose (mg/dL) 248 H (75-99) mg/dL TSH 0.127 L (0.465-4.680) mIU/L Microbiology - Last 24 Hours (Table) 01/26/18 20:27 Blood Culture - Preliminary Blood No Growth after 24 hours
--- NOTE | 2018-01-28 14:48 | P.PN ---
Subjective Progress Note Date: 01/28/18 72-year-old male patient with known history of coronary artery disease and remote history of myocardial infarction presented to the hospital yesterday because of cough, shortness of breath without having any significant chest pain. He is a chronic smoker and smokes around one pack a day on a daily basis. The patient presented to the emergency department with significant shortness of breath. He was placed on BiPAP for respiratory support. His EKG is showing normal sinus rhythm without any significant ST segment elevation. This some nonspecific depressions. Troponins are positive with levels are being 0.08, 1.1 and 1.3 respectively consistent with possible non-STEMI. The patient had a BNP level of 6810. Chest x-ray showed evidence of mild pulmonary vascular congestion consistent with heart failure. The patient also has underlying cardiac megaly. No clear aspirate disease. The severity of the small right-sided pleural effusion cannot be completely excluded. The patient currently is on telemetry unit. The patient is on IV heparin. The patient is also on aspirin. He was started on metoprolol 100 mg by mouth twice a day. He is also receiving Lasix 40 mg IV push every 12 hours. He is also on a combination of Zestril and hydralazine. He was seen by cardiology. The patient seems to have a chronic kidney failure in addition. Creatinine is around 2.0 which is consistent with stage III chronic kidney failure. His other comorbidities include hypertension, hyperlipidemia, diabetes mellitus, bladder cancer On 01/28/2018, I'm seeing this patient for a follow-up. The patient is less short of breath compared to yesterday. Earlier this morning, the patient was taken off the BiPAP and currently is on oxygen by nasal cannula at 4 L. His much more comfortable compared to yesterday. No chest pain. He has bronchus spastic and wheezy although less compared to yesterday. I put him on a combination of DuoNeb nebulized mist [id number] and IV Solu Medrol. He is also diuresing with IV Lasix. His fluid balance is negative more than 1.5 L over the past 24 hours. Echocardiogram was done and the patient is a preserved LV function with an ejection fraction of 55-60%. No significant valvular abnormalities. The patient is free of any chest pain for now. No nausea. No vomiting. No abdominal pain. He is able to sit up in his bed without any major difficulties. His blood work was also noted. The renal function is stable with a creatinine being down to 1.8. He has developed some mild steroid- induced hyperglycemia. Objective - Vital Signs Vital signs: Vital Signs Temp 97.7 F 01/28/18 11:55 Pulse 82 01/28/18 11:55 Resp 22 01/28/18 11:55 BP 151/69 01/28/18 11:55 Pulse Ox 94 L 01/28/18 11:55 Intake & Output 01/27/18 01/28/18 01/28/18 18:59 06:59 18:59 Intake Total 277.73 222.27 Output Total 925 1000 450 Balance -647.27 -777.73 -450 Weight 80.2 kg Intake: Intake, IV Titration 277.73 222.27 Amount Heparin Sod,Pork in 0.45% 277.73 222.27 NaCl 25,000 unit In 0.45 % NaCl 1 500ml.bag @ 12 UNITS/KG/HR 19.59 mls/hr IV .Q24H [facility] Rx#: [id number] Output: Urine 925 1000 450 Other: Voiding Method Urinal Urinal Urinal # Voids 1 - Exam Gen. appearance the patient is a mild degree of respiratory distress. He shortness of breath has improved. The patient is less wheezy compared to yesterday. He is currently taken off the BiPAP and currently is on 40 selective oxygen by nasal cannula. Head exam was generally normal. There was no scleral icterus or corneal arcus. Mucous membranes were moist. Neck was supple and without jugular venous distension, thyromegaly, or carotid bruits. Carotids were easily palpable bilaterally. There was no adenopathy. Lungs sounds are diminished bilaterally along with scattered expiratory wheezes throughout the lung his bilaterally. Heart sounds are distant. Otherwise, Cardiac exam revealed the PMI to be normally situated and sized. The rhythm was regular and no extrasystoles were noted during several minutes of auscultation. The first and second heart sounds were normal and physiologic splitting of the second heart sound was noted. There were no murmurs, rubs, clicks, or gallops. Abdominal exam revealed normal bowel sounds. The abdomen was soft, non-tender, and without masses, organomegaly, or appreciable enlargement of the abdominal aorta. Examination of the extremities revealed easily palpable radial, femoral and pedal pulses. There was no cyanosis, clubbing or edema. Examination of the skin revealed no evidence of significant rashes, suspicious appearing nevi or other concerning lesions. Neurologically awake and alert there is no focal logical deficits. - Labs CBC & Chem 7: 01/28/18 05:35 01/28/18 05:35 Labs: Abnormal Lab Results - Last 24 Hours (Table) 01/27/18 01/27/18 01/28/18 Range/Units 18:39 20:38 05:35 WBC 13.9 H (3.8-10.6) k/uL RBC 4.29 L (4.30-5.90) m/uL Hgb 12.7 L (13.0-17.5) gm/dL Neutrophils # 13.2 H (1.3-7.7) k/uL Lymphocytes # 0.3 L (1.0-4.8) k/uL APTT 55.5 H (22.0-30.0) sec Chloride (98-107) mmol/L BUN (9-20) mg/dL Creatinine (0.66-1.25) mg/dL Glucose (74-99) mg/dL POC Glucose (mg/dL) 269 H (75-99) mg/dL TSH (0.465-4.680) mIU/L 01/28/18 01/28/18 01/28/18 Range/Units 05:35 05:35 05:35 WBC (3.8-10.6) k/uL RBC (4.30-5.90) m/uL Hgb (13.0-17.5) gm/dL Neutrophils # (1.3-7.7) k/uL Lymphocytes # (1.0-4.8) k/uL APTT 71.2 H (22.0-30.0) sec Chloride 109 H (98-107) mmol/L BUN 55 H (9-20) mg/dL Creatinine 1.89 H (0.66-1.25) mg/dL Glucose 267 H (74-99) mg/dL POC Glucose (mg/dL) (75-99) mg/dL TSH 0.127 L (0.465-4.680) mIU/L 01/28/18 01/28/18 Range/Units 06:06 11:47 WBC (3.8-10.6) k/uL RBC (4.30-5.90) m/uL Hgb (13.0-17.5) gm/dL Neutrophils # (1.3-7.7) k/uL Lymphocytes # (1.0-4.8) k/uL APTT (22.0-30.0) sec Chloride (98-107) mmol/L BUN (9-20) mg/dL Creatinine (0.66-1.25) mg/dL Glucose (74-99) mg/dL POC Glucose (mg/dL) 248 H 357 H (75-99) mg/dL TSH (0.465-4.680) mIU/L Microbiology - Last 24 Hours (Table) 01/26/18 20:27 Blood Culture - Preliminary Blood No Growth after 24 hours Assessment and Plan Plan: Assessment 1 acute dyspnea associated with a component of CHF/COPD exacerbation He is improved considerably. He is less short of breath. He was treated for CHF and COPD exacerbation and today he was taken off the BiPAP and placed on 40s of oxygen nasal cannula. He is feeling better and is obviously less short of breath. 2 acute non-ST segment elevation myocardial infarction with troponin peak of 1.3 without any significant or specific ST segment changes on the EKG 3 known history of coronary artery disease with remote history of myocardial infarction 4 hypertension 5 hyperlipidemia 6 diabetes mellitus 7 chronic stage III kidney failure with creatinine stable and is down to 1.8 8 new onset atrial fibrillation with rapid ventricular response, converted 9 polycystic kidney disease 10 history of bladder cancer post-transurethral resection followed by intravesicular chemotherapy Plan Clinically improved. Echocardiogram was noted. Continue IV Lasix. Continue bronchodilators with DuoNeb nebulized treatments around the clock. Continue IV Solu Medrol for another 24 hours as the patient also has developed steroid- induced hyperglycemia we'll monitor the blood sugar and he is also on a sliding scale coverage for blood sugar control. Continue metoprolol 100 mg by mouth twice a day. Lipitor at 20 mg. Aspirin. KILLIAN inhibitor with lisinopril 20 mg by mouth daily. Patient is currently in a sinus mechanism. The patient was taken off the nitroglycerin drip. The patient will be kept on IV Lasix. Further recommendations from cardiology regarding the acute non-STEMI. I will then sedated COPD exacerbation improving over the next 24 hours. We'll continue the high-dose Cytomel for another 24 hours and will continue to follow.
[2018-01-28 17:05] LABS: Glucose,Whole Blood 320 mg/dL (75-99)
[2018-01-28 20:28] LABS: Glucose,Whole Blood 402 mg/dL (75-99)
[2018-01-28] MEDS: ATORVASTATIN 20 MG TAB PO SCH (20:40)
[2018-01-28] MEDS: HEPARIN SOD,PORK IN 0.45% NACL 25,000 UNIT in 0.45% NACL 1 500ML.BAG IV SCH (20:41)
[2018-01-29] MEDS: methylPREDNISolone SOD SUCCI 125 MG/2 ML VIAL IV SCH ×2 (00:08→06:26)
[2018-01-29 05:42] LABS: Glucose,Whole Blood 260 mg/dL (75-99)
[2018-01-29] MEDS: INSULIN ASPART 100 UNIT/ML 1 ML 10 ML VIAL SQ SCH ×4 (06:27→20:52)
[2018-01-29 06:58] LABS: Basophils % (A) 0 %; Eosinophils % (A) 0 %; HCT 38.8 % (39.0-53.0); HGB 12.7 gm/dL (13.0-17.5); Lymphocytes # (A) 0.3 k/uL (1.0-4.8); Lymphocytes % (A) 3 %; MCH 30.6 pg (25.0-35.0); MCHC 32.8 g/dL (31.0-37.0); MCV 93.5 fL (80.0-100.0); Mean Platelet Volume 7.9; Monocytes # (A) 0.3 k/uL (0-1.0); Monocytes % (A) 2 %; Neutrophils % (A) 94 %; Platelet Count 161 k/uL (150-450); RBC 4.15 m/uL (4.30-5.90); RDW 14.5 % (11.5-15.5); WBC 11.7 k/uL (3.8-10.6)
[2018-01-29 07:22] LABS: Potassium 4.2 mmol/L (3.5-5.1)
[2018-01-29] MEDS: IPRATROPIUM-ALBUTEROL 3 ML NEB INHALATION SCH ×4 (07:29→19:37)
[2018-01-29] MEDS: FUROSEMIDE 10 MG/ML 4 ML VIAL IV SCH (07:50)
[2018-01-29] MEDS: LISINOPRIL 20 MG TAB PO SCH (07:50)
[2018-01-29] MEDS: hydrALAZINE HCL 25 MG TAB PO SCH ×2 (07:50→20:52)
[2018-01-29] MEDS: ASPIRIN 81 MG PO SCH (07:51)
[2018-01-29] MEDS: amLODIPine 5 MG TAB PO SCH ×2 (07:51→20:52)
[2018-01-29] MEDS: FAMOTIDINE 20 MG TAB PO SCH (07:51)
[2018-01-29] MEDS: ISOSORBIDE MONONITRATE ER 30 MG TAB.ER.24H PO SCH (07:51)
[2018-01-29] MEDS: METOPROLOL TARTRATE 50 MG TAB PO SCH ×2 (07:51→20:52)
--- NOTE | 2018-01-29 08:27 | P.PN ---
Subjective On-call hospitalist covering Dr. Aranda This is a pleasant 72 years old male with past medical history of hypertension and hyperlipidemia, chronic kidney disease stage III. presents with dyspnea of 1 -2 days duration with no associated chest pain , pt complains also from orthopnea and paroxymal nocturnal dyspnea. pt has elevated troponin and ProBNP and elements of pulmonary congestion on chest x-ray. On admission patient was noticed to have elevated troponin 0.08-1.3 with elevated proBNP at 6800. Patient creatinine is 2.0 which is at baseline 01/28/2018 Patient breathing is better as and his dyspnea is improving. He denies chest pain. However on exam patient is still tachypneic and he has wheezing with prolonged expiratory phase. No much of crepitation. Patient is still on heparin drip and Solu-Medrol. There is little tachycardic and hypertensive. Has mild leukocytosis of 13.9 K however patient is on steroids. Creatinine is slightly better from 2.0 to 1.8. TSH is low at 0.12, free T4 is pending 01/29/2018 Patient's resting comfortable with no chest pain or dyspnea. He remains on heparin drip with plan for possible switching to oral therapy today per Cardiology team. Patient is not on home oxygen. Currently on 4 L via nasal cannula and saturating 91. The nurse tried to titrated down. His continuing to be on steroids. Vitals stable and patient is afebrile. WBC is improving from 13.9 K to 11.7 k. Creatinine at baseline 2.05 Objective - Vital Signs Vital signs: Vital Signs Temp 98 F 01/29/18 04:00 Pulse 96 01/29/18 07:41 Resp 21 01/29/18 04:00 BP 144/70 01/29/18 04:00 Pulse Ox 95 01/29/18 04:00 Intake & Output 01/28/18 01/29/18 01/29/18 18:59 06:59 18:59 Intake Total 500 125 300 Output Total 1250 250 Balance -750 -125 300 Weight 84 kg Intake: Intake, IV Titration 500 Amount Heparin Sod,Pork in 0.45% 500 NaCl 25,000 unit In 0.45 % NaCl 1 500ml.bag @ 12 UNITS/KG/HR 19.59 mls/hr IV .Q24H [facility] Rx#: [id number] Oral 125 300 Output: Urine 1250 250 Other: Voiding Method Urinal Urinal - Exam GENERAL: The patient is alert and oriented x3, not in any acute distress. Well developed, well nourished. HEENT: Pupils are round and equally reacting to light. EOMI. No scleral icterus. No conjunctival pallor. Normocephalic, atraumatic. No pharyngeal erythema. No thyromegaly. CARDIOVASCULAR: S1 and S2 present. No murmurs, rubs, or gallops. PULMONARY: Chest is clear to auscultation, no wheezing or crackles. ABDOMEN: Soft, nontender, nondistended, normoactive bowel sounds. No palpable organomegaly. MUSCULOSKELETAL: No joint swelling or deformity. EXTREMITIES: No cyanosis, clubbing, or pedal edema. NEUROLOGICAL: Gross neurological examination did not reveal any focal deficits. SKIN: No rashes. - Labs CBC & Chem 7: 01/29/18 06:26 01/29/18 06:26 Labs: Abnormal Lab Results - Last 24 Hours (Table) 01/28/18 01/28/18 01/28/18 Range/Units 05:35 11:47 17:02 WBC (3.8-10.6) k/uL RBC (4.30-5.90) m/uL Hgb (13.0-17.5) gm/dL Hct (39.0-53.0) % Neutrophils # (1.3-7.7) k/uL Lymphocytes # (1.0-4.8) k/uL APTT (22.0-30.0) sec BUN (9-20) mg/dL Creatinine (0.66-1.25) mg/dL Glucose (74-99) mg/dL POC Glucose (mg/dL) 357 H 320 H (75-99) mg/dL TSH 0.127 L (0.465-4.680) mIU/L 01/28/18 01/29/18 01/29/18 Range/Units 20:26 05:40 06:26 WBC 11.7 H (3.8-10.6) k/uL RBC 4.15 L (4.30-5.90) m/uL Hgb 12.7 L (13.0-17.5) gm/dL Hct 38.8 L (39.0-53.0) % Neutrophils # 11.0 H (1.3-7.7) k/uL Lymphocytes # 0.3 L (1.0-4.8) k/uL APTT (22.0-30.0) sec BUN (9-20) mg/dL Creatinine (0.66-1.25) mg/dL Glucose (74-99) mg/dL POC Glucose (mg/dL) 402 H 260 H (75-99) mg/dL TSH (0.465-4.680) mIU/L 01/29/18 01/29/18 Range/Units 06:26 06:26 WBC (3.8-10.6) k/uL RBC (4.30-5.90) m/uL Hgb (13.0-17.5) gm/dL Hct (39.0-53.0) % Neutrophils # (1.3-7.7) k/uL Lymphocytes # (1.0-4.8) k/uL APTT 62.7 H (22.0-30.0) sec BUN 67 H (9-20) mg/dL Creatinine 2.05 H (0.66-1.25) mg/dL Glucose 274 H (74-99) mg/dL POC Glucose (mg/dL) (75-99) mg/dL TSH (0.465-4.680) mIU/L Microbiology - Last 24 Hours (Table) 01/26/18 20:27 Blood Culture - Preliminary Blood No Growth after 48 hours Assessment and Plan Assessment: Acute coronary syndrome with elevated troponin, NSTEMI acute CHF acute COPD exacerbation Low TSH, follow-up thyroid function test of T4 History of hyperlipidemia Hypertension, essential Chronic kidney disease stage III Leukocytosis, resolved Plan: This is a pleasant 72 years old male who presents with NSTMI and acute systolic CHF. Cardiology has been consulted. Patient already on heparin drip as well as aspirated and beta luisa and Lasix 40 mg IV twice a day recurrent continue with Lipitor. pulmonary input is appreciated. Rest of labs and medication were reviewed. Continue same treatment. Continue with symptomatic treatment. Resume home medication. Monitor lytes and vitals. DVT and GI prophylaxis. Further recommendationsof the clinical course of the patient DVT prophylaxis: heparin GI Prophylaxis: Pepcid PT/OT: on hold Prognosis is guarded
--- NOTE | 2018-01-29 10:40 | CDI ---
Last Revision, March 2017 Documentation Clarification Form Date: 01/29/2018 9:58:18 AM From: Jerica Staley RN, CCDS Admit Date: 01/26/2018 9:30:00 PM Patient Name: Irving Camacho Visit Number: [id number] Discharge Date: ATTENTION: The Clinical Documentation Specialists (CDI) and [facility] Coding Staff appreciate your assistance in clarifying documentation. Please respond to the clarification below the line at the bottom and electronically sign. The CDI & [facility] Coding staff will review the response and follow-up if needed. Please note: Queries are made part of the Legal Health Record. If you have any questions, please contact the author of this message via ITS. Radames Cornejo MD The patient presented with the following respiratory symptoms: Shortness of breath, respiratory distress, wheezes, rales, decreased breath sounds History/Risk Factors: Hypertension, Hyperlipidemia, COPD, Current every day smoker Clinical Indicators: Present with 2 days of cough and dyspnea.. Treat with antibiotics and Medrol Dosepak by PCP without improvements. Vital signs: 167/88 123 36 98.5 77 % RA Pulse oximetry: 77 % RA 90 % 5/L NC, 96 % BiPAP FIO2 50% Treatment: Breathing TX: Duoneb's Monitor O2 Sat's BiPAP O2 (Titrate) Lasix IV Solu-Medrol IV (taper) In your professional opinion, can you please clarify if these findings signify one of the following conditions? Acuity: Acute Chronic Acute on Chronic Specificity: Respiratory Failure, further specify (if known): With hypercapnia? With hypoxia? Other Diagnosis, please specify Unable to determine Please continue to document in your progress notes or on this query in order to capture severity of illness and risk of mortality. Include clinical findings that support your diagnosis. Acute hypoxemic respiratory failure secondary to an acute exacerbation of chronic obstructive pulmonary disease along with an acute exacerbation of diastolic congestive heart failure and new onset atrial fibrillation MTDD
--- NOTE | 2018-01-29 10:48 | P.PN ---
Subjective Progress Note Date: 01/29/18 Principal diagnosis: Dyspnea, associated with a component of CHF/COPD exacerbation. 72-year-old male patient with known history of coronary artery disease and remote history of myocardial infarction presented to the hospital yesterday because of cough, shortness of breath without having any significant chest pain. He is a chronic smoker and smokes around one pack a day on a daily basis. The patient presented to the emergency department with significant shortness of breath. He was placed on BiPAP for respiratory support. His EKG is showing normal sinus rhythm without any significant ST segment elevation. This some nonspecific depressions. Troponins are positive with levels are being 0.08, 1.1 and 1.3 respectively consistent with possible non-STEMI. The patient had a BNP level of 6810. Chest x-ray showed evidence of mild pulmonary vascular congestion consistent with heart failure. The patient also has underlying cardiac megaly. No clear aspirate disease. The severity of the small right-sided pleural effusion cannot be completely excluded. The patient currently is on telemetry unit. The patient is on IV heparin. The patient is also on aspirin. He was started on metoprolol 100 mg by mouth twice a day. He is also receiving Lasix 40 mg IV push every 12 hours. He is also on a combination of Zestril and hydralazine. He was seen by cardiology. The patient seems to have a chronic kidney failure in addition. Creatinine is around 2.0 which is consistent with stage III chronic kidney failure. His other comorbidities include hypertension, hyperlipidemia, diabetes mellitus, bladder cancer On 01/28/2018, I'm seeing this patient for a follow-up. The patient is less short of breath compared to yesterday. Earlier this morning, the patient was taken off the BiPAP and currently is on oxygen by nasal cannula at 4 L. His much more comfortable compared to yesterday. No chest pain. He has bronchus spastic and wheezy although less compared to yesterday. I put him on a combination of DuoNeb nebulized mist [id number] and IV Solu Medrol. He is also diuresing with IV Lasix. His fluid balance is negative more than 1.5 L over the past 24 hours. Echocardiogram was done and the patient is a preserved LV function with an ejection fraction of 55-60%. No significant valvular abnormalities. The patient is free of any chest pain for now. No nausea. No vomiting. No abdominal pain. He is able to sit up in his bed without any major difficulties. His blood work was also noted. The renal function is stable with a creatinine being down to 1.8. He has developed some mild steroid- induced hyperglycemia. On 01/29/2018 patient seen in follow-up on [facility]. Denies any acute distress, denies any shortness of breath or chest pain. He did wear his BiPAP last night, currently on nasal cannula at 4 L, and his pulse ox is 92%, he is afebrile, hemodynamically stable. Lung sounds are clear to auscultation, diminished at the bases. Remains on heparin drip. Today's labs have been reviewed, leukocytosis is trending down, 11.7 white blood count, hemoglobin is 12.7, electrolytes are within normal limits, there is slight worsening of the renal profile, BUN is up to 67, creatinine 2.05. Blood cultures remain negative. Reading easier today. No congestion, some faint wheezes, patient is improving. Patient is a current smoker, 1-1/2 packs a day for 50 years. Cocaine cessation was revisited, and strongly encouraged. Patient is maintaining negative fluid balance -875 over the last 24 hours. Objective - Vital Signs Vital signs: Vital Signs Temp 98.1 F 01/29/18 08:00 Pulse 99 01/29/18 08:00 Resp 20 01/29/18 08:00 BP 169/96 01/29/18 08:00 Pulse Ox 92 L 01/29/18 08:00 Intake & Output 01/28/18 01/29/18 01/29/18 18:59 06:59 18:59 Intake Total 500 125 300 Output Total 1250 250 400 Balance -750 -125 -100 Weight 84 kg Intake: Intake, IV Titration 500 Amount Heparin Sod,Pork in 0.45% 500 NaCl 25,000 unit In 0.45 % NaCl 1 500ml.bag @ 12 UNITS/KG/HR 19.59 mls/hr IV .Q24H [facility] Rx#: [id number] Oral 125 300 Output: Urine 1250 250 400 Other: Voiding Method Urinal Urinal Urinal - Exam Gen. appearance the patient is a mild degree of respiratory distress. He shortness of breath has improved. The patient is less wheezy compared to yesterday. He is currently taken off the BiPAP and currently is on 40 selective oxygen by nasal cannula. Head exam was generally normal. There was no scleral icterus or corneal arcus. Mucous membranes were moist. Neck was supple and without jugular venous distension, thyromegaly, or carotid bruits. Carotids were easily palpable bilaterally. There was no adenopathy. Lungs sounds are diminished bilaterally along with faint expiratory wheezes throughout the lung his bilaterally. Heart sounds are distant. Otherwise, Cardiac exam revealed the PMI to be normally situated and sized. The rhythm was regular and no extrasystoles were noted during several minutes of auscultation. The first and second heart sounds were normal and physiologic splitting of the second heart sound was noted. There were no murmurs, rubs, clicks, or gallops. Abdominal exam revealed normal bowel sounds. The abdomen was soft, non-tender, and without masses, organomegaly, or appreciable enlargement of the abdominal aorta. Examination of the extremities revealed easily palpable radial, femoral and pedal pulses. There was no cyanosis, clubbing or edema. Examination of the skin revealed no evidence of significant rashes, suspicious appearing nevi or other concerning lesions. Neurologically awake and alert there is no focal logical deficits. - Labs CBC & Chem 7: 01/29/18 06:26 01/29/18 06:26 Labs: Abnormal Lab Results - Last 24 Hours (Table) 01/28/18 01/28/18 01/28/18 Range/Units 11:47 17:02 20:26 WBC (3.8-10.6) k/uL RBC (4.30-5.90) m/uL Hgb (13.0-17.5) gm/dL Hct (39.0-53.0) % Neutrophils # (1.3-7.7) k/uL Lymphocytes # (1.0-4.8) k/uL APTT (22.0-30.0) sec BUN (9-20) mg/dL Creatinine (0.66-1.25) mg/dL Glucose (74-99) mg/dL POC Glucose (mg/dL) 357 H 320 H 402 H (75-99) mg/dL 01/29/18 01/29/18 01/29/18 Range/Units 05:40 06:26 06:26 WBC 11.7 H (3.8-10.6) k/uL RBC 4.15 L (4.30-5.90) m/uL Hgb 12.7 L (13.0-17.5) gm/dL Hct 38.8 L (39.0-53.0) % Neutrophils # 11.0 H (1.3-7.7) k/uL Lymphocytes # 0.3 L (1.0-4.8) k/uL APTT (22.0-30.0) sec BUN 67 H (9-20) mg/dL Creatinine 2.05 H (0.66-1.25) mg/dL Glucose 274 H (74-99) mg/dL POC Glucose (mg/dL) 260 H (75-99) mg/dL 01/29/18 Range/Units 06:26 WBC (3.8-10.6) k/uL RBC (4.30-5.90) m/uL Hgb (13.0-17.5) gm/dL Hct (39.0-53.0) % Neutrophils # (1.3-7.7) k/uL Lymphocytes # (1.0-4.8) k/uL APTT 62.7 H (22.0-30.0) sec BUN (9-20) mg/dL Creatinine (0.66-1.25) mg/dL Glucose (74-99) mg/dL POC Glucose (mg/dL) (75-99) mg/dL Microbiology - Last 24 Hours (Table) 01/26/18 20:27 Blood Culture - Preliminary Blood No Growth after 48 hours Assessment and Plan Plan: 1 acute dyspnea associated with a component of CHF/COPD exacerbation He is improved considerably. He is less short of breath. He was treated for CHF and COPD exacerbation and today he was taken off the BiPAP and placed on 40s of oxygen nasal cannula. He is feeling better and is obviously less short of breath. 2 acute non-ST segment elevation myocardial infarction with troponin peak of 1.3 without any significant or specific ST segment changes on the EKG 3 known history of coronary artery disease with remote history of myocardial infarction 4 hypertension 5 hyperlipidemia 6 diabetes mellitus 7 chronic stage III kidney failure with creatinine stable and is down to 1.8 8 new onset atrial fibrillation with rapid ventricular response, converted 9 polycystic kidney disease 10 history of bladder cancer post-transurethral resection followed by intravesicular chemotherapy Plan We'll repeat a chest x-ray today, there has been worsening of patient's renal function, we'll decrease the Lasix to once daily, will transition the IV steroids to oral prednisone. Continue with nebulized bronchodilators, clinically patient continues to improve, less short of breath, less bronchospastic and wheezy. Denies any worsening shortness of breath or chest pain. Increase activity as tolerated. I performed a history & physical examination of the patient and discussed their management with my nurse practitioner, Kathy Doty. I reviewed the nurse practitioner's note and agree with the documented findings and plan of care. Lung sounds are positive forfaint wheezes throughout the lung thomson. The findings and the impression was discussed with the patient. I attest to the documentation by the nurse practitioner. Time with Patient: Less than 30
[2018-01-29 11:09] LABS: Glucose,Whole Blood 425 mg/dL (75-99)
--- NOTE | 2018-01-29 11:40 | P.PN ---
Subjective Patient sitting in chair at bedside appears to be dyspneic states that his respiratory status is improved from admission Objective - Vital Signs Vital signs: Vital Signs Temp 98.1 F 01/29/18 08:00 Pulse 99 01/29/18 08:00 Resp 20 01/29/18 08:00 BP 169/96 01/29/18 08:00 Pulse Ox 92 L 01/29/18 08:00 Intake & Output 01/28/18 01/29/18 01/29/18 18:59 06:59 18:59 Intake Total 500 125 300 Output Total 1250 250 500 Balance -750 -125 -200 Weight 84 kg Intake: Intake, IV Titration 500 Amount Heparin Sod,Pork in 0.45% 500 NaCl 25,000 unit In 0.45 % NaCl 1 500ml.bag @ 12 UNITS/KG/HR 19.59 mls/hr IV .[facility] Rx#: [id number] Oral 125 300 Output: Urine 1250 250 500 Other: Voiding Method Urinal Urinal Urinal # Voids 1 - Constitutional General appearance: Present: obese - EENT Eyes: Present: PERRLA Ears: bilateral: normal - Neck Neck: Present: normal ROM - Respiratory Respiratory: right: rales - Cardiovascular Rhythm: regular - Gastrointestinal General gastrointestinal: Present: soft - Integumentary Integumentary: Present: normal - Neurologic Neurologic: Present: CNII-XII intact - Musculoskeletal Musculoskeletal: Present: generalized weakness - Psychiatric Psychiatric: Present: A&O x's 3, appropriate affect, intact judgment & insight - Labs CBC & Chem 7: 01/29/18 06:26 01/29/18 06:26 Labs: Abnormal Lab Results - Last 24 Hours (Table) 01/28/18 01/28/18 01/28/18 Range/Units 11:47 17:02 20:26 WBC (3.8-10.6) k/uL RBC (4.30-5.90) m/uL Hgb (13.0-17.5) gm/dL Hct (39.0-53.0) % Neutrophils # (1.3-7.7) k/uL Lymphocytes # (1.0-4.8) k/uL APTT (22.0-30.0) sec BUN (9-20) mg/dL Creatinine (0.66-1.25) mg/dL Glucose (74-99) mg/dL POC Glucose (mg/dL) 357 H 320 H 402 H (75-99) mg/dL 01/29/18 01/29/18 01/29/18 Range/Units 05:40 06:26 06:26 WBC 11.7 H (3.8-10.6) k/uL RBC 4.15 L (4.30-5.90) m/uL Hgb 12.7 L (13.0-17.5) gm/dL Hct 38.8 L (39.0-53.0) % Neutrophils # 11.0 H (1.3-7.7) k/uL Lymphocytes # 0.3 L (1.0-4.8) k/uL APTT (22.0-30.0) sec BUN 67 H (9-20) mg/dL Creatinine 2.05 H (0.66-1.25) mg/dL Glucose 274 H (74-99) mg/dL POC Glucose (mg/dL) 260 H (75-99) mg/dL 01/29/18 01/29/18 Range/Units 06:26 11:06 WBC (3.8-10.6) k/uL RBC (4.30-5.90) m/uL Hgb (13.0-17.5) gm/dL Hct (39.0-53.0) % Neutrophils # (1.3-7.7) k/uL Lymphocytes # (1.0-4.8) k/uL APTT 62.7 H (22.0-30.0) sec BUN (9-20) mg/dL Creatinine (0.66-1.25) mg/dL Glucose (74-99) mg/dL POC Glucose (mg/dL) 425 H (75-99) mg/dL Microbiology - Last 24 Hours (Table) 01/26/18 20:27 Blood Culture - Preliminary Blood No Growth after 48 hours Assessment and Plan Plan: Assessment Acute coronary syndrome with elevated troponins non-STEMI Atrial fibrillation with RVR converted to sinus rhythm Acute congestive heart failure diastolic dysfunction Acute COPD exacerbation Low TSH History of hyperlipidemia Hypertension Chronic kidney disease stage III Diabetes type 2 History of bladder cancer Plan Continue consultation with pulmonology and cardiology
[2018-01-29 11:49] VITALS: BMI 28.1
--- NOTE | 2018-01-29 11:59 | CDI ---
Last Revision, March 2017 Documentation Clarification Form Date: 01/29/2018 11:39:11 AM From: Jerica Staley RN, CCDS Admit Date: 01/26/2018 9:30:00 PM Patient Name: Irving Camacho Visit Number: [id number] Discharge Date: ATTENTION: The Clinical Documentation Specialists (CDI) and [facility] Coding Staff appreciate your assistance in clarifying documentation. Please respond to the clarification below the line at the bottom and electronically sign. The CDI & [facility] Coding staff will review the response and follow-up if needed. Please note: Queries are made part of the Legal Health Record. If you have any questions, please contact the author of this message via ITS. Sebastián Tom MD Conflicting documentation has been found in the medical record. 01/27/18 Your H&P and ongoing progress notes has acute systolic CHF. 01/28/18 Cardiology (Dr. Aguirre) has Acute diastolic heart failure ECHO: Preserved left ventricular systolic function with ejection fraction 55-60 % History/Risk Factors: Hyperlipidemia, Hypertension, COPD, Current every day smoker Clinical Indicators:: Present with complaints of shortness of breath, dyspnea,. Patient BNP on admission 6810. Vital signs on admission: 167/88 123, 36 98.5 77% RA 96 % 5/L NC 96 % BIPAP FIO2 50 % Treatment: Lasix IV Imdur PO Telemetry monitoring In your opinion what is the most clinically appropriate diagnosis for this patient? Acute diastolic heart failure Acute systolic heart failure Other explanation of clinical findings Unable to determine (no explanation for clinical findings) Please continue to document in your progress notes and discharge summary in order to capture severity of illness and risk of mortality. Include clinical findings that support your diagnosis. Acute diastolic heart failure MTDD
--- NOTE | 2018-01-29 14:58 | P.PN ---
Subjective Progress Note Date: 01/29/18 Samira and skin was seen and examined this morning, he sitting up in the chair at bedside. Overall he states that his breathing is improving significantly. Blood pressure today 150/60 with a heart rate in the 70s, 94% on 2 L of oxygen. White blood cell count 11.7, hemoglobin 12.7, platelet count 161. Sodium 138 , potassium 42, BUN 67, creatinine 2.0. Diuresing well, weight is unchanged today. We'll continue current dose of diuretics for another 24 hours. Check lytes BUN and creatinine in the morning Objective - Vital Signs Vital signs: Vital Signs Temp 98.4 F 01/29/18 12:00 Pulse 78 01/29/18 12:00 Resp 20 01/29/18 12:00 BP 154/67 01/29/18 12:00 Pulse Ox 94 L 01/29/18 12:00 Intake & Output 01/28/18 01/29/18 01/29/18 18:59 06:59 18:59 Intake Total 500 125 540 Output Total 1250 250 500 Balance -750 -125 40 Weight 84 kg 84 kg Intake: Intake, IV Titration 500 Amount Heparin Sod,Pork in 0.45% 500 NaCl 25,000 unit In 0.45 % NaCl 1 500ml.bag @ 12 UNITS/KG/HR 19.59 mls/hr IV .Q24H [facility] Rx#: [id number] Oral 125 540 Output: Urine 1250 250 500 Other: Voiding Method Urinal Urinal Urinal # Voids 1 - Exam GENERAL: This is a 72-year-old occasion male in no apparent distress at the time of my examination. HEENT: Head is atraumatic, normocephalic. Pupils are equal, round. Sclerae anicteric. Conjunctivae are clear. Mucous membranes of the mouth are moist. Neck is supple. There is no jugular venous distention. No carotid bruit is heard. LUNGS: Expiratory wheezes, faint bibasilar ralies. No rhonchi. No chest wall tenderness is noted on palpation or with deep breathing. Diminished bilaterally. HEART: Irregular rate and rhythm with systolic ejection murmur at the base, no rubs or gallops. S1 and S2 heard. ABDOMEN: Soft, nontender. Bowel sounds are heard. No organomegaly noted. EXTREMITIES: No evidence of peripheral edema and no calf tenderness noted. VASCULAR: Radial and dorsalis pedis pulses palpated, no evidence of clubbing. NEUROLOGIC: Patient is awake, alert and oriented x3. - Labs CBC & Chem 7: 01/29/18 06:26 01/29/18 06:26 Labs: Abnormal Lab Results - Last 24 Hours (Table) 01/28/18 01/28/18 01/29/18 Range/Units 17:02 20:26 05:40 WBC (3.8-10.6) k/uL RBC (4.30-5.90) m/uL Hgb (13.0-17.5) gm/dL Hct (39.0-53.0) % Neutrophils # (1.3-7.7) k/uL Lymphocytes # (1.0-4.8) k/uL APTT (22.0-30.0) sec BUN (9-20) mg/dL Creatinine (0.66-1.25) mg/dL Glucose (74-99) mg/dL POC Glucose (mg/dL) 320 H 402 H 260 H (75-99) mg/dL 01/29/18 01/29/18 01/29/18 Range/Units 06:26 06:26 06:26 WBC 11.7 H (3.8-10.6) k/uL RBC 4.15 L (4.30-5.90) m/uL Hgb 12.7 L (13.0-17.5) gm/dL Hct 38.8 L (39.0-53.0) % Neutrophils # 11.0 H (1.3-7.7) k/uL Lymphocytes # 0.3 L (1.0-4.8) k/uL APTT 62.7 H (22.0-30.0) sec BUN 67 H (9-20) mg/dL Creatinine 2.05 H (0.66-1.25) mg/dL Glucose 274 H (74-99) mg/dL POC Glucose (mg/dL) (75-99) mg/dL 01/29/18 Range/Units 11:06 WBC (3.8-10.6) k/uL RBC (4.30-5.90) m/uL Hgb (13.0-17.5) gm/dL Hct (39.0-53.0) % Neutrophils # (1.3-7.7) k/uL Lymphocytes # (1.0-4.8) k/uL APTT (22.0-30.0) sec BUN (9-20) mg/dL Creatinine (0.66-1.25) mg/dL Glucose (74-99) mg/dL POC Glucose (mg/dL) 425 H (75-99) mg/dL Microbiology - Last 24 Hours (Table) 01/26/18 20:27 Blood Culture - Preliminary Blood No Growth after 48 hours Assessment and Plan Plan: ASSESSMENT and PLAN #1 Acute diastolic heart failure on top of COPD exacerbation #2 New-onset paroxysmal atrial fibrillation with rapid ventricular response #3 and Aortic stenosis #4 Troponin elevation, could represent [id number] elevated DE #5 History of coronary artery disease, patient states he underwent cardiac catheterization 2024 years ago. #6 Hypertension #7 Dyslipidemia #8 Diabetes mellitus #9 Chronic kidney disease, GFR 34 #10 Chronic nicotine dependence Plan We will continue current dose of IV Lasix. Check lytes BUN and creatinine in the morning. Patient has a normal LV function by echo. No further episodes of atrial fibrillation were noted, we will continue with a baby aspirin daily, if there are further episodes of atrial fibrillation noted patient then will require anticoagulation. DNP note has been reviewed, I agree with a documented findings and plan of care. Patient was seen and examined.
[2018-01-29 16:29] LABS: Glucose,Whole Blood 324 mg/dL (75-99)
--- NOTE | 2018-01-29 16:33 | XR ---
EXAMINATION: XR chest 2V DATE AND TIME: 01/29/2018 4:01 PM CLINICAL INDICATION: follow up CHF TECHNIQUE: PA and lateral COMPARISON: 01/26/2018 8:53 PM FINDINGS: The overall lung inflation pattern is markedly improved, with resolution of the previously seen pulmo nary edema pattern. There remains mild silhouetting of the pulmonary vasculature in the lung bases co nsistent with mildly elevated left heart pressures. There are a few scattered nodular opacities which can be further characterized with follow-up radiography. Cardiac silhouette has normal appearance. The pleural spaces, bones, and soft tissues are negative fo r acute findings. IMPRESSION: 1. MARKED INTERVAL IMPROVEMENT. 2. Scattered nodular opacities which can be further characterized with follow-up radiography or CT.
[2018-01-29 19:30] LABS: Hemoglobin A1C 6.7 % (4.0-6.0)
[2018-01-29 20:47] LABS: Glucose,Whole Blood 417 mg/dL (75-99)
[2018-01-29] MEDS: ATORVASTATIN 20 MG TAB PO SCH (20:52)
[2018-01-29] MEDS: HEPARIN SOD,PORK IN 0.45% NACL 25,000 UNIT in 0.45% NACL 1 500ML.BAG IV SCH (23:33)
[2018-01-30 00:01] LABS: Glucose,Whole Blood 248 mg/dL (75-99)
[2018-01-30 05:42] LABS: Glucose,Whole Blood 185 mg/dL (75-99)
[2018-01-30] MEDS: INSULIN ASPART 100 UNIT/ML 1 ML 10 ML VIAL SQ SCH ×2 (06:30→12:20)
[2018-01-30 07:04] LABS: Basophils % (A) 0 %; Eosinophils % (A) 0 %; HCT 40.4 % (39.0-53.0); Lymphocytes # (A) 0.7 k/uL (1.0-4.8); Lymphocytes % (A) 6 %; MCH 30.2 pg (25.0-35.0); MCV 94.2 fL (80.0-100.0); Mean Platelet Volume 7.9; Monocytes # (A) 0.7 k/uL (0-1.0); Monocytes % (A) 6 %; Neutrophils # (A) 9.8 k/uL (1.3-7.7); Neutrophils % (A) 86 %; Platelet Count 176 k/uL (150-450); RBC 4.29 m/uL (4.30-5.90); RDW 14.4 % (11.5-15.5); WBC 11.4 k/uL (3.8-10.6)
[2018-01-30] MEDS: IPRATROPIUM-ALBUTEROL 3 ML NEB INHALATION SCH ×3 (08:09→16:11)
[2018-01-30 08:44] VITALS: TEMP 97.7
[2018-01-30] MEDS: hydrALAZINE HCL 25 MG TAB PO SCH (08:45)
[2018-01-30] MEDS: amLODIPine 5 MG TAB PO SCH (08:45)
[2018-01-30] MEDS: LISINOPRIL 20 MG TAB PO SCH (08:46)
[2018-01-30] MEDS: ISOSORBIDE MONONITRATE ER 30 MG TAB.ER.24H PO SCH (08:46)
[2018-01-30] MEDS: METOPROLOL TARTRATE 50 MG TAB PO SCH (08:46)
[2018-01-30] MEDS: ASPIRIN 81 MG PO SCH (08:46)
[2018-01-30] MEDS: FAMOTIDINE 20 MG TAB PO SCH (08:48)
[2018-01-30] MEDS ORDERED: predniSONE 20 MG TAB PO SCH (09:00)
[2018-01-30] MEDS ORDERED: FUROSEMIDE 10 MG/ML 4 ML VIAL IV SCH (09:00)
--- NOTE | 2018-01-30 10:09 | P.PN ---
Subjective Progress Note Date: 01/30/18 Principal diagnosis: Acute exacerbation of chronic obstructive pulmonary disease and congestive heart failure 72-year-old male patient with known history of coronary artery disease and remote history of myocardial infarction presented to the hospital yesterday because of cough, shortness of breath without having any significant chest pain. He is a chronic smoker and smokes around one pack a day on a daily basis. The patient presented to the emergency department with significant shortness of breath. He was placed on BiPAP for respiratory support. His EKG is showing normal sinus rhythm without any significant ST segment elevation. This some nonspecific depressions. Troponins are positive with levels are being 0.08, 1.1 and 1.3 respectively consistent with possible non-STEMI. The patient had a BNP level of 6810. Chest x-ray showed evidence of mild pulmonary vascular congestion consistent with heart failure. The patient also has underlying cardiac megaly. No clear aspirate disease. The severity of the small right-sided pleural effusion cannot be completely excluded. The patient currently is on telemetry unit. The patient is on IV heparin. The patient is also on aspirin. He was started on metoprolol 100 mg by mouth twice a day. He is also receiving Lasix 40 mg IV push every 12 hours. He is also on a combination of Zestril and hydralazine. He was seen by cardiology. The patient seems to have a chronic kidney failure in addition. Creatinine is around 2.0 which is consistent with stage III chronic kidney failure. His other comorbidities include hypertension, hyperlipidemia, diabetes mellitus, bladder cancer On 01/28/2018, I'm seeing this patient for a follow-up. The patient is less short of breath compared to yesterday. Earlier this morning, the patient was taken off the BiPAP and currently is on oxygen by nasal cannula at 4 L. His much more comfortable compared to yesterday. No chest pain. He has bronchus spastic and wheezy although less compared to yesterday. I put him on a combination of DuoNeb nebulized mist [id number] and IV Solu Medrol. He is also diuresing with IV Lasix. His fluid balance is negative more than 1.5 L over the past 24 hours. Echocardiogram was done and the patient is a preserved LV function with an ejection fraction of 55-60%. No significant valvular abnormalities. The patient is free of any chest pain for now. No nausea. No vomiting. No abdominal pain. He is able to sit up in his bed without any major difficulties. His blood work was also noted. The renal function is stable with a creatinine being down to 1.8. He has developed some mild steroid- induced hyperglycemia. On 01/29/2018 patient seen in follow-up on selective care unit. Denies any acute distress, denies any shortness of breath or chest pain. He did wear his BiPAP last night, currently on nasal cannula at 4 L, and his pulse ox is 92%, he is afebrile, hemodynamically stable. Lung sounds are clear to auscultation, diminished at the bases. Remains on heparin drip. Today's labs have been reviewed, leukocytosis is trending down, 11.7 white blood count, hemoglobin is 12.7, electrolytes are within normal limits, there is slight worsening of the renal profile, BUN is up to 67, creatinine 2.05. Blood cultures remain negative. Reading easier today. No congestion, some faint wheezes, patient is improving. Patient is a current smoker, 1-1/2 packs a day for 50 years. Cocaine cessation was revisited, and strongly encouraged. Patient is maintaining negative fluid balance -875 over the last 24 hours. The patient is seen again today 01/30/2018 in follow-up on the selective care unit. He is currently awake and alert in no acute distress. He is breathing easier today as compared to yesterday. He did not require the BiPAP last evening. He is currently maintaining good O2 saturations in the mid 90s on 2 L/ m per nasal cannula. He's been afebrile. Hemodynamically stable. Blood culture reveals no growth. White count 11.4. Hemoglobin 13.0. He is continued on IV diuretics. Currently in a negative balance. He is down another kilogram. He remains on bronchodilators, prednisone. Objective - Vital Signs Vital signs: Vital Signs Temp 97.7 F 01/30/18 08:40 Pulse 94 01/30/18 08:40 Resp 18 01/30/18 08:40 BP 178/88 01/30/18 08:40 Pulse Ox 95 01/30/18 08:40 Intake & Output 01/29/18 01/30/18 01/30/18 18:59 06:59 18:59 Intake Total 960 240 360 Output Total 1280 400 300 Balance -320 -160 60 Weight 84 kg 83.6 kg Intake: IV 240 0.9 KVO 240 Oral 720 240 360 Output: Urine 1280 400 300 Other: Voiding Method Urinal Urinal # Voids 1 - Exam Gen. appearance the patient is a mild degree of respiratory distress. His shortness of breath has improved. Currently on nasal cannula 2 L/m.. Head exam was generally normal. There was no scleral icterus or corneal arcus. Mucous membranes were moist. Neck was supple and without jugular venous distension, thyromegaly, or carotid bruits. Carotids were easily palpable bilaterally. There was no adenopathy. Lungs sounds are diminished bilaterally along with faint expiratory wheezes throughout the lung his bilaterally. Heart sounds are distant. Otherwise, Cardiac exam revealed the PMI to be normally situated and sized. The rhythm was regular and no extrasystoles were noted during several minutes of auscultation. The first and second heart sounds were normal and physiologic splitting of the second heart sound was noted. There were no murmurs, rubs, clicks, or gallops. Abdominal exam revealed normal bowel sounds. The abdomen was soft, non-tender, and without masses, organomegaly, or appreciable enlargement of the abdominal aorta. Examination of the extremities revealed easily palpable radial, femoral and pedal pulses. There was no cyanosis, clubbing or edema. Examination of the skin revealed no evidence of significant rashes, suspicious appearing nevi or other concerning lesions. Neurologically awake and alert there is no focal logical deficits. - Labs CBC & Chem 7: 01/30/18 05:42 01/29/18 06:26 Labs: Abnormal Lab Results - Last 24 Hours (Table) 01/29/18 01/29/18 01/29/18 Range/Units 06:26 11:06 16:27 WBC (3.8-10.6) k/uL RBC (4.30-5.90) m/uL Neutrophils # (1.3-7.7) k/uL Lymphocytes # (1.0-4.8) k/uL APTT (22.0-30.0) sec POC Glucose (mg/dL) 425 H 324 H (75-99) mg/dL Hemoglobin A1c 6.7 H (4.0-6.0) % 01/29/18 01/29/18 01/30/18 Range/Units 20:45 23:59 05:41 WBC (3.8-10.6) k/uL RBC (4.30-5.90) m/uL Neutrophils # (1.3-7.7) k/uL Lymphocytes # (1.0-4.8) k/uL APTT (22.0-30.0) sec POC Glucose (mg/dL) 417 H 248 H 185 H (75-99) mg/dL Hemoglobin A1c (4.0-6.0) % 01/30/18 01/30/18 Range/Units 05:42 05:42 WBC 11.4 H (3.8-10.6) k/uL RBC 4.29 L (4.30-5.90) m/uL Neutrophils # 9.8 H (1.3-7.7) k/uL Lymphocytes # 0.7 L (1.0-4.8) k/uL APTT 64.8 H (22.0-30.0) sec POC Glucose (mg/dL) (75-99) mg/dL Hemoglobin A1c (4.0-6.0) % Microbiology - Last 24 Hours (Table) 01/26/18 20:27 Blood Culture - Preliminary Blood No Growth after 72 hours Assessment and Plan Assessment: Impression: #1 Acute hypoxic respiratory failure secondary to an acute exacerbation of chronic obstructive pulmonary disease along with an acute exacerbation of diastolic congestive heart failure and new onset atrial fibrillation with rapid ventricular response. #2 Acute exacerbation chronic obstructive pulmonary disease. #3 Acute exacerbation of diastolic congestive heart failure. #4 New-onset paroxysmal atrial fibrillation with a rapid ventricular response. Single episode. No plans for anticoagulation per cardiology. #5 Non-ST segment elevation myocardial infarction. #6 Previous history of coronary artery disease. #7 Hypertension. #8 Hyperlipidemia. #9 Diabetes mellitus. #10 Chronic kidney disease. #11 Chronic and ongoing tobacco dependence. Plan: The patient was seen and evaluated by Dr. Costello. Chest x-ray and labs were reviewed. The patient is improving from the pulmonary standpoint. Continue with bronchodilators. Continue with prednisone taper. He is again encouraged regarding the importance of complete smoking cessation. Assess for home oxygen. Upon discharge he should follow-up in our office in 1-2 weeks' time. We'll perform full pulmonary function testing to evaluate the severity of his suspected COPD. In the interim, we'll continue to follow and make further recommendations based on his clinical status. I, the cosigning physician, performed a history & physical examination of the patient. Lungs sounds with faint end expiratory wheeze, few scattered crackles. Maintaining good O2 saturations in the 90s on 2 L/m per nasal cannula. I discussed the assessment and plan of care with my nurse practitioner, Michelle Santoro. I attest to the above note as dictated by her.
[2018-01-30 11:24] LABS: Glucose,Whole Blood 236 mg/dL (75-99)
--- NOTE | 2018-01-30 12:01 | P.PN ---
Subjective Patient resting in chair at bedside states breathing is improved. States that althea will come up at 4:30 this morning with report that his heart rate was rapid. Respiratory status stabilized Objective - Vital Signs Vital signs: Vital Signs Temp 97.7 F 01/30/18 08:40 Pulse 76 01/30/18 11:41 Resp 18 01/30/18 08:40 BP 178/88 01/30/18 08:40 Pulse Ox 95 01/30/18 08:40 Intake & Output 01/29/18 01/30/18 01/30/18 18:59 06:59 18:59 Intake Total 960 240 360 Output Total 0021 141 6203 Balance -320 -160 -640 Weight 84 kg 83.6 kg Intake: IV 240 0.9 KVO 240 Oral 720 240 360 Output: Urine 3041 669 4008 Other: Voiding Method Urinal Urinal Urinal # Voids 1 - Constitutional General appearance: Present: mild distress - EENT Eyes: Present: PERRLA Ears: bilateral: normal - Neck Neck: Present: normal ROM - Respiratory Respiratory: bilateral: diminished - Cardiovascular Rhythm: regular - Gastrointestinal General gastrointestinal: Present: soft - Integumentary Integumentary: Present: normal - Neurologic Neurologic: Present: CNII-XII intact - Musculoskeletal Musculoskeletal: Present: generalized weakness - Psychiatric Psychiatric: Present: A&O x's 3, appropriate affect, intact judgment & insight - Labs CBC & Chem 7: 01/30/18 05:42 01/29/18 06:26 Labs: Abnormal Lab Results - Last 24 Hours (Table) 01/29/18 01/29/18 01/29/18 Range/Units 06:26 16:27 20:45 WBC (3.8-10.6) k/uL RBC (4.30-5.90) m/uL Neutrophils # (1.3-7.7) k/uL Lymphocytes # (1.0-4.8) k/uL APTT (22.0-30.0) sec POC Glucose (mg/dL) 324 H 417 H (75-99) mg/dL Hemoglobin A1c 6.7 H (4.0-6.0) % 01/29/18 01/30/18 01/30/18 Range/Units 23:59 05:41 05:42 WBC 11.4 H (3.8-10.6) k/uL RBC 4.29 L (4.30-5.90) m/uL Neutrophils # 9.8 H (1.3-7.7) k/uL Lymphocytes # 0.7 L (1.0-4.8) k/uL APTT (22.0-30.0) sec POC Glucose (mg/dL) 248 H 185 H (75-99) mg/dL Hemoglobin A1c (4.0-6.0) % 01/30/18 01/30/18 Range/Units 05:42 11:22 WBC (3.8-10.6) k/uL RBC (4.30-5.90) m/uL Neutrophils # (1.3-7.7) k/uL Lymphocytes # (1.0-4.8) k/uL APTT 64.8 H (22.0-30.0) sec POC Glucose (mg/dL) 236 H (75-99) mg/dL Hemoglobin A1c (4.0-6.0) % Microbiology - Last 24 Hours (Table) 01/26/18 20:27 Blood Culture - Preliminary Blood No Growth after 72 hours - Imaging and Cardiology Chest x-ray: report reviewed Assessment and Plan Plan: Assessment Acute coronary syndrome with elevated troponins non-STEMI Acute congestive heart failure diastolic dysfunction Paroxysmal atrial fibrillation with RVR Acute COPD exacerbation hypoxia respiratory failure Low TSH History of hyperlipidemia Essential hypertension Chronic kidney disease stage III History of bladder cancer Diabetes type 2 Plan Continue consultation with cardiology
[2018-01-30 12:08] VITALS: RESP 16
[2018-01-30 12:45] LABS: Calcium 9.1 mg/dL (8.4-10.2)
[2018-01-30 12:47] LABS: Potassium 5.4 mmol/L (3.5-5.1)
--- NOTE | 2018-01-30 13:55 | P.PN ---
Subjective Progress Note Date: 01/30/18 Fredi was seen and examined this morning, he sitting up in the chair at bedside. Overall he states that his breathing is improving significantly. Blood pressure today 150/60 with a heart rate in the 70s, 94% on 2 L of oxygen. White blood cell count 11.7, hemoglobin 12.7, platelet count 161. Sodium 138 , potassium 42, BUN 67, creatinine 2.0. Diuresing well, weight is unchanged today. We'll continue current dose of diuretics for another 24 hours. Check lytes BUN and creatinine in the morning. 01/30/2018 Patient was seen and examined this morning, again sitting up in the chair at bedside. Feeling better every day according to the patient. He was noted on the monitor to have a run of A. fib with RVR through the night again last night. This morning is back in normal sinus rhythm. His weight today is down 1 kg. I pressure 122/60 with a heart rate in the 60s. White blood cell count 6.8, hemoglobin 10.6, platelet count 262. Sodium 140, potassium 4.2, BUN 32, creatinine 2.0. Patient is currently on subcu heparin twice a day. We will start the patient on request 2-1/2 mg one tablet by mouth twice a day and discontinue the heparin. He is currently on oral diuretics. Objective - Vital Signs Vital signs: Vital Signs Temp 97.7 F 01/30/18 08:40 Pulse 76 01/30/18 11:41 Resp 16 01/30/18 11:30 BP 172/83 01/30/18 11:30 Pulse Ox 92 L 01/30/18 11:30 Intake & Output 01/29/18 01/30/18 01/30/18 18:59 06:59 18:59 Intake Total 960 240 582 Output Total 5777 634 1951 Balance -320 -160 -418 Weight 84 kg 83.6 kg Intake: IV 240 0.9 KVO 240 Oral 720 240 582 Output: Urine 0808 112 4477 Other: Voiding Method Urinal Urinal Urinal # Voids 1 - Exam GENERAL: This is a 72-year-old occasion male in no apparent distress at the time of my examination. HEENT: Head is atraumatic, normocephalic. Pupils are equal, round. Sclerae anicteric. Conjunctivae are clear. Mucous membranes of the mouth are moist. Neck is supple. There is no jugular venous distention. No carotid bruit is heard. LUNGS: Expiratory wheezes, faint bibasilar ralies. No rhonchi. No chest wall tenderness is noted on palpation or with deep breathing. Diminished bilaterally. HEART: Irregular rate and rhythm with systolic ejection murmur at the base, no rubs or gallops. S1 and S2 heard. ABDOMEN: Soft, nontender. Bowel sounds are heard. No organomegaly noted. EXTREMITIES: No evidence of peripheral edema and no calf tenderness noted. VASCULAR: Radial and dorsalis pedis pulses palpated, no evidence of clubbing. NEUROLOGIC: Patient is awake, alert and oriented x3. - Labs CBC & Chem 7: 01/30/18 05:42 01/30/18 12:15 Labs: Abnormal Lab Results - Last 24 Hours (Table) 01/29/18 01/29/18 01/29/18 Range/Units 06:26 16:27 20:45 WBC (3.8-10.6) k/uL RBC (4.30-5.90) m/uL Neutrophils # (1.3-7.7) k/uL Lymphocytes # (1.0-4.8) k/uL APTT (22.0-30.0) sec Potassium (3.5-5.1) mmol/L BUN (9-20) mg/dL Creatinine (0.66-1.25) mg/dL Glucose (74-99) mg/dL POC Glucose (mg/dL) 324 H 417 H (75-99) mg/dL Hemoglobin A1c 6.7 H (4.0-6.0) % 01/29/18 01/30/18 01/30/18 Range/Units 23:59 05:41 05:42 WBC 11.4 H (3.8-10.6) k/uL RBC 4.29 L (4.30-5.90) m/uL Neutrophils # 9.8 H (1.3-7.7) k/uL Lymphocytes # 0.7 L (1.0-4.8) k/uL APTT (22.0-30.0) sec Potassium (3.5-5.1) mmol/L BUN (9-20) mg/dL Creatinine (0.66-1.25) mg/dL Glucose (74-99) mg/dL POC Glucose (mg/dL) 248 H 185 H (75-99) mg/dL Hemoglobin A1c (4.0-6.0) % 01/30/18 01/30/18 01/30/18 Range/Units 05:42 11:22 12:15 WBC (3.8-10.6) k/uL RBC (4.30-5.90) m/uL Neutrophils # (1.3-7.7) k/uL Lymphocytes # (1.0-4.8) k/uL APTT 64.8 H (22.0-30.0) sec Potassium 5.4 H (3.5-5.1) mmol/L BUN 71 H (9-20) mg/dL Creatinine 1.81 H (0.66-1.25) mg/dL Glucose 235 H (74-99) mg/dL POC Glucose (mg/dL) 236 H (75-99) mg/dL Hemoglobin A1c (4.0-6.0) % Microbiology - Last 24 Hours (Table) 01/26/18 20:27 Blood Culture - Preliminary Blood No Growth after 72 hours Assessment and Plan Plan: ASSESSMENT and PLAN #1 Acute diastolic heart failure on top of COPD exacerbation #2 New-onset paroxysmal atrial fibrillation with rapid ventricular response #3 and Aortic stenosis #4 Troponin elevation, could represent [id number] elevated AR #5 History of coronary artery disease, patient states he underwent cardiac catheterization 2024 years ago. #6 Hypertension #7 Dyslipidemia #8 Diabetes mellitus #9 Chronic kidney disease, GFR 28 #10 Chronic nicotine dependence Plan Patient is currently on oral diuretics. We will discontinue the subcu heparin and start the patient on Eliquis 2-1/2 mg one tablet by mouth twice a day. Patient did have one further episode of A. fib through the night and again this morning is in normal sinus rhythm. From our perspective he may be able to be discharged home today. We'll make a follow-up appointment for him to see cardiology in the office post discharge. DNP note has been reviewed, I agree with a documented findings and plan of care. Patient was seen and examined.
[2018-01-30] MEDS: HEPARIN SOD,PORK IN 0.45% NACL 25,000 UNIT in 0.45% NACL 1 500ML.BAG IV SCH (13:58)
[2018-01-30] MEDS ORDERED: APIXABAN 2.5 MG TABLET PO SCH (14:00)
[2018-01-30 16:08] VITALS: BP 156/78
[2018-01-30 16:25] VITALS: PULSE 72
[2018-01-30 16:26] LABS: Glucose,Whole Blood 326 mg/dL (75-99)
--- NOTE | 2018-01-30 16:42 | P.DS ---
Providers Date of admission: 01/26/18 21:30 Expected date of discharge: 01/30/18 Attending physician: Lani Hicks Consults: 01/26/18 21:30 Consult Physician Routine Consulting Provider: Huy Aguirre Consult Reason/Comments: chf Do you want consulting provider notified?: Yes 01/26/18 21:31 Consult Physician Routine Consulting Provider: Nico Joy Consult Reason/Comments: copd, chf Do you want consulting provider notified?: Yes Primary care physician: Rigo Aranda Hospital Course: 72-year-old male was admitted from the emergency room with complaints of shortness of breath. Patient was evaluated by pulmonology and cardiology was stabilized. Patient was found to have the not STEMI. The patient had the paroxysmal of atrial fibrillation with RVR patient started on Eliquis Assessment acute coronary syndromes elevated troponins not STEMI history of congestive heart failure acute diastolic dysfunction atrial fibrillation paroxysmal with RVR acute COPD with exacerbation hypoxic respiratory failure low TSH history of hyperlipidemia essential hypertension chronic kidney disease stage III history of bladder cancer diabetes type II Plan follow up with family physician Dr. Rigo Aranda and cardiology Patient Condition at Discharge: Stable Plan - Discharge Summary Discharge Rx Participant: No New Discharge Prescriptions: New Apixaban [Eliquis] 2.5 mg PO BID #60 tablet hydrALAZINE HCL [Apresoline] 25 mg PO BID #60 tab Furosemide [Lasix] 40 mg PO DAILY #30 tab Lisinopril [Zestril] 10 mg PO DAILY #30 tab Continue Omeprazole [PriLOSEC] 20 mg PO DAILY Fenofibrate Nanocrystallized [Tricor] 145 mg PO DAILY Aspirin EC [Ecotrin Low Dose] 81 mg PO DAILY Simvastatin 40 mg PO HS Metoprolol Tartrate [Lopressor] 100 mg PO BID Isosorbide Dinitrate [Isordil] 20 mg PO BID amLODIPine BESYLATE/BENAZEPRIL [Lotrel 5-20 mg Capsule] 1 cap PO DAILY No Action Pioglitazone [Actos] 45 mg PO DAILY Azithromycin [Zithromax Z-pack] See Taper PO DAILY methylPREDNISolone [Medrol Dose Pack] See Taper PO DIRECTED glipiZIDE [Glucotrol] 10 mg PO AC-BID Linagliptin [Tradjenta] 5 mg PO DAILY Discharge Medication List Aspirin EC [Ecotrin Low Dose] 81 mg PO DAILY 01/26/18 [History] Azithromycin [Zithromax Z-pack] See Taper PO DAILY 01/26/18 [History] Fenofibrate Nanocrystallized [Tricor] 145 mg PO DAILY 01/26/18 [History] Isosorbide Dinitrate [Isordil] 20 mg PO BID 01/26/18 [History] Linagliptin [Tradjenta] 5 mg PO DAILY 01/26/18 [History] Metoprolol Tartrate [Lopressor] 100 mg PO BID 01/26/18 [History] Omeprazole [PriLOSEC] 20 mg PO DAILY 01/26/18 [History] Pioglitazone [Actos] 45 mg PO DAILY 01/26/18 [History] Simvastatin 40 mg PO HS 01/26/18 [History] amLODIPine BESYLATE/BENAZEPRIL [Lotrel 5-20 mg Capsule] 1 cap PO DAILY 01/26/18 [History] glipiZIDE [Glucotrol] 10 mg PO AC-BID 01/26/18 [History] methylPREDNISolone [Medrol Dose Pack] See Taper PO DIRECTED 01/26/18 [History ] Apixaban [Eliquis] 2.5 mg PO BID #60 tablet 01/30/18 [Rx] Furosemide [Lasix] 40 mg PO DAILY #30 tab 01/30/18 [Rx] Lisinopril [Zestril] 10 mg PO DAILY #30 tab 01/30/18 [Rx] hydrALAZINE HCL [Apresoline] 25 mg PO BID #60 tab 01/30/18 [Rx] Follow up Appointment(s)/Referral(s): Rigo Aranda MD [Primary Care Provider] - 02/06/18 10:40 am (Monday) [facility], [NON-STAFF] - Meme Price MD [STAFF PHYSICIAN] - 02/13/18 3:15 pm Radames Aguiar MD [STAFF PHYSICIAN] - 1 Week (OFFICE IS CLOSED. PLEASE CALL TO SCHEDULE APPOINTMENT) Activity/Diet/Wound Care/Special Instructions: Home Oxygen - [facility] - [phone] - to be delivered to room prior to discharge
[2018-01-31] MEDS ORDERED: LISINOPRIL 10 MG TAB PO SCH (09:00)
[2018-01-31] MEDS ORDERED: FUROSEMIDE 40 MG TAB PO SCH (09:00)
--- NOTE | 2018-02-01 12:27 | P.PN ---
Progress Note - Text Addendum and correction to discharge summary patient is positive for NSTEMI
== END 2018-01-30 17:16 | disposition home or self-care (01) | DRG 280 ==
LOC: EC 20:01 → 3SCARD 21:30
PROVIDERS: ADMIT Hospitalist; ATTEND Hospitalist
DX: I21.4 Non-ST elevation (NSTEMI) myocardial infarction (principal); I50.33 Acute on chronic diastolic (congestive) heart failure; J96.01 Acute respiratory failure with hypoxia; I13.0 Hypertensive heart and chronic kidney disease with heart failure and stage 1 through stage 4 chronic kidney disease, or unspecified chronic kidney disease; J44.1 Chronic obstructive pulmonary disease with (acute) exacerbation; Q61.3 Polycystic kidney, unspecified; E11.22 Type 2 diabetes mellitus with diabetic chronic kidney disease; N18.3 Chronic kidney disease, stage 3 (moderate); E11.65 Type 2 diabetes mellitus with hyperglycemia; E78.5 Hyperlipidemia, unspecified; F17.210 Nicotine dependence, cigarettes, uncomplicated; R79.89 Other specified abnormal findings of blood chemistry; I48.0 Paroxysmal atrial fibrillation; I25.10 Atherosclerotic heart disease of native coronary artery without angina pectoris; I35.0 Nonrheumatic aortic (valve) stenosis; T38.0X5A Adverse effect of glucocorticoids and synthetic analogues, initial encounter; I25.2 Old myocardial infarction; Z79.899 Other long term (current) drug therapy; Z79.84 Long term (current) use of oral hypoglycemic drugs; Z82.49 Family history of ischemic heart disease and other diseases of the circulatory system; Z85.51 Personal history of malignant neoplasm of bladder; Z92.21 Personal history of antineoplastic chemotherapy
CPT/HCPCS: 36415; 71045; 71046; 80048; 80053; 82550; 82553; 83036; 83735; 83880; 84132; 84439; 84443; 84484; 85025; 85610; 85730; 87040; 93005; 93306; 94640; 94660; 94760; 96365; 96366; 96368; 96375; 96376; 99291

== ENCOUNTER → 2018-02-02 | Outpatient (CLI) | payer MEDICARE ==
[2018-02-02 15:40] LABS: Anion Gap 6.7 mmol/L (4.00-12.00); Calcium 9.1 mg/dL (8.7-10.3); Carbon Dioxide 30.3 mmol/L (21.6-31.8); Potassium 4.9 mmol/L (3.5-5.5)
== END | disposition home or self-care (01) ==
LOC: LABWHC1 09:17
PROVIDERS: ATTEND Family Medicine
DX: I21.4 Non-ST elevation (NSTEMI) myocardial infarction (principal); I50.33 Acute on chronic diastolic (congestive) heart failure
CPT/HCPCS: 36415; 80048

== ENCOUNTER → 2018-04-11 | Outpatient (CLI) | payer MEDICARE ==
[2018-04-11 09:54] LABS: HCT 38.7 % (39.0-53.0); HGB 12.8 gm/dL (13.0-17.5); MCH 30.5 pg (25.0-35.0); MCHC 33.1 g/dL (31.0-37.0); MCV 92.1 fL (80.0-100.0); Mean Platelet Volume 7.7; Platelet Count 189 k/uL (150-450); RDW 14.7 % (11.5-15.5); WBC 8.6 k/uL (3.8-10.6)
[2018-04-11 10:00] LABS: Potassium 4.8 mmol/L (3.5-5.1)
== END | disposition home or self-care (01) ==
LOC: LABPAT 09:00
PROVIDERS: ATTEND Internal Medicine Cardiovascular Disease
DX: Z01.812 Encounter for preprocedural laboratory examination (principal); I25.10 Atherosclerotic heart disease of native coronary artery without angina pectoris; I10 Essential (primary) hypertension; I48.2 Chronic atrial fibrillation
CPT/HCPCS: 36415; 80051; 82565; 84520; 85027

== ENCOUNTER → 2018-11-08 | Outpatient (CLI) | payer MEDICARE ==
--- NOTE | 2018-11-08 08:49 | US ---
EXAMINATION TYPE: US abdomen complete DATE OF EXAM: 11/08/2018 COMPARISON: MRI abdomen 2016 CLINICAL HISTORY: R10.9 Unspecified abdominal pain. Intermittent abdomen discomfort and bloating x 5 months, loss of appetite EXAM MEASUREMENTS: Liver Length: 15.3 cm Gallbladder Wall: 0.2 cm CBD: 0.8 cm Spleen: 9.7 cm Right Kidney: 11.0 x 4.9 x 5.2 cm Left Kidney: 9.0 x 4.0 x 4.2 cm Pancreas: visualized portions appear hyperechoic Liver: mildly heterogeneous Gallbladder: 2.4cm non mobile stone, possible thickening of fundal wall with multiple echogenic foci with ringdown, possible adenomyomatosis Evidence for sonographic Mayer's sign: yes CBD: Upper limits of normal for patient's age Spleen: wnl Right Kidney: multiple cysts with largest measuring 5.1 x 3.4 x 5.4cm, dilated renal pelvis Left Kidney: measures small in size when compared to right kidney, multiple cysts with largest measu ring 2.5 x 2.7 x 2.7cm Upper IVC: wnl Abd Aorta: wnl Visualized aorta shows some ectasia without greater than 3 cm aneurysmal change. Visualized pancreas is slightly heterogeneous without suspicious mass or ductal dilatation. Visualized liver shows no wor risome mass or ductal dilatation. IVC seen near hepatic dome. Multiple simple appearing thin-walled c ysts are scattered throughout both kidneys. At level of gallbladder fossa technologist marked shadowi ng 2.5 cm structure this appears to correlate with adjacent bowel loop on 2016 MRI, gallbladder adjac ent to this shows no definitive shadowing calculi or surrounding fluid. Cannot exclude focal gallblad tara wall thickening, gallbladder wall is not diffusely thickened. Cortical thinning in the left kidne y is noted. IMPRESSION: Correlating with MRI there is suspected gas-filled bowel loop near gallbladder fossa tia cking large shadowing gallstone. No acute finding clearly seen. If symptoms persist consider further investigation with CT or upper GI study.
== END | disposition home or self-care (01) ==
LOC: RADUSWWP 07:01
PROVIDERS: ATTEND Family Medicine
DX: K80.20 Calculus of gallbladder without cholecystitis without obstruction (principal)
CPT/HCPCS: 76700

== ENCOUNTER → 2018-11-09 | Outpatient (CLI) | payer MEDICARE ==
--- NOTE | 2018-11-09 09:55 | NM ---
EXAMINATION TYPE: NM hepatobiliary w CCK DATE OF EXAM: 11/09/2018 COMPARISON: NONE HISTORY: Right upper quadrant abdominal pain TECHNIQUE: After the intravenous administration of 4.4 mCi Tc 99m Mebrofenin hepatobiliary scintigrap hy is performed. Immediate images post injection. FINDINGS: There is satisfactory initial accumulation of tracer by the liver. The gallbladder is visualized wit hin 40 minutes. The small bowel activity is noted within 24 minutes. At one hour CCK was administer ed, patient was injected with 1.49 mcg of Kinevac, and gallbladder ejection fraction is calculated at 64 %, in the normal range. Therefore there is no scintigraphic evidence of cystic or common bile du ct obstruction to suggest acute cholecystitis or gallbladder dyskinesia. IMPRESSION: No scintigraphic evidence of acute cholecystitis, chronic cholecystitis, or biliary dyski nesia.
== END | disposition home or self-care (01) ==
LOC: RADNMMAIN 07:48
PROVIDERS: ATTEND Family Medicine
DX: R10.11 Right upper quadrant pain (principal)
CPT/HCPCS: 78227; A9537; J2805

== ENCOUNTER → 2018-11-28 | Outpatient (CLI) | payer MEDICARE ==
--- NOTE | 2018-11-28 11:02 | CT ---
EXAMINATION TYPE: CT abdomen pelvis wo con DATE OF EXAM: 11/28/2018 COMPARISON: 11/13/2009 HISTORY: 73-year-old male bloating, wt loss, loss of appetite CT DLP: 439 mGycm. Automated exposure control for dose reduction was used. TECHNIQUE: Contiguous axial scanning of the abdomen and pelvis without IV contrast. Coronal and sagit jeremy reconstructions performed. FINDINGS: Heart upper limits of normal in size without pericardial effusion. Coronary vessel calcifications are present. Small hiatal hernia. There is a small left pleural effusion. Septal lines within the lower lungs with mild patchy groundgl ass at the bases. Some nonspecific calcifications on the right hemidiaphragm. Noncontrast appearance of the liver, right adrenal gland, spleen, and pancreas show no gross abnormal ity. Mild diffuse thickening of the left adrenal gland is unchanged. No mesenteric or retroperitoneal lymphadenopathy. Multiple bilateral renal cysts, largest in the right upper pole measuring 5.3 cm versus 3.5 cm, previ ously. Extrarenal pelvis on the right. Additional dominant right renal cyst measures 5.6 cm of the lo wer pole versus 4.9 cm, previously. A few cysts within the left kidney have increased in size measuring 2.0 cm medial upper pole versus s ubcentimeter previously. New atrophy of the left kidney. Given moderate to severe atherosclerotic calcifications throughout th e abdominal aorta and iliac arteries, findings may be secondary to renal artery stenosis. No dilated small bowel, free fluid, or free air. Oral contrast progressed to the mid transverse colon . There is moderate stool burden. Sigmoid diverticulosis. No pericolonic inflammatory change. Mild circumferential bladder wall thickening with some trabeculations noted. Bladder is probably dist ended by 14.7 cm craniocaudal. Prostate gland measures 5.3 cm wide with central calcifications. Multi ple pelvic phleboliths. No abnormal fluid collection in the pelvis or pelvic lymphadenopathy. Bones: Degenerative changes of both hips and throughout the lumbar spine. IMPRESSION: 1. Small left pleural effusion. Septal lines in the lower lungs. Correlate to exclude fluid overload state and mild pulmonary vascular congestion. 2. Multiple bilateral renal cysts, some increased in size as compared to 2009, largest measuring 5.6 cm. 3. New atrophy of the left kidney. Given moderate to severe arthroscopic calcifications throughout t he abdominal aorta and iliac arteries, consider renal artery stenosis as a possible etiology. 4. Prominent distention of the bladder with circumferential wall thickening and trabeculated appeara nce. Findings suggest chronic bladder outlet obstruction such as from BPH. Prostate gland measures 5. 3 cm wide. Clinically correlate. 5. Small hiatal hernia and sigmoid diverticulosis.
== END | disposition home or self-care (01) ==
LOC: RADCTMAIN 07:18
PROVIDERS: ATTEND Family Medicine
DX: N28.1 Cyst of kidney, acquired (principal); N26.1 Atrophy of kidney (terminal); I70.0 Atherosclerosis of aorta; I70.8 Atherosclerosis of other arteries; N32.89 Other specified disorders of bladder; K44.9 Diaphragmatic hernia without obstruction or gangrene; K57.30 Diverticulosis of large intestine without perforation or abscess without bleeding
CPT/HCPCS: 36415; 74176; 82565; 84520

== ENCOUNTER → 2018-12-10 | Outpatient (CLI) | payer MEDICARE ==
--- NOTE | 2018-12-10 10:06 | FL ---
EXAMINATION TYPE: FL UGI air w esophagus DATE OF EXAM: 12/10/2018 COMPARISON: CT abdomen and pelvis November 28, 2018 HISTORY: Bloating with loss of appetite, weight loss. TECHNIQUE: A double contrast UGI study is performed. 35 seconds of fluoroscopic time utilized during procedure. 55 spot images are saved to PACS. FINDINGS: Thread Cutter image of the abdomen redemonstrates small to tiny bilateral pleural effusions with a ssociated bibasilar atelectasis and/or scarring. Some vascular calcification along course of splenic artery is seen. Vascular calcification also involving iliac branches noted. Overall nonobstructive michele wel gas pattern. The esophagus shows satisfactory motility and emptying into the stomach. Patient did have deep penetr ation without aspiration which did not initiate a cough reflex during rapid drinking. No intraluminal mass or stricture. No diverticulum. Small sliding-type hiatal hernia. Episodic gastroesophageal refl ux up to mid esophageal level noted. The stomach shows suboptimal distention believed to be due to poor tolerance of air crystals. There i s moderate to severe gastric fold prominence throughout the entire stomach with relative sparing of t he antrum. No focal ulcer. The duodenal bulb, sweep, and proximal small bowel loops are felt within normal limits. IMPRESSION: I suspect a moderate to severe gastritis with prominence of gastric folds. This correlate s with recent CT. There is moderate gastroesophageal reflux and small sliding-type hiatal hernia.
== END ==
LOC: RADUSWWP 08:48
PROVIDERS: ATTEND Family Medicine
DX: K44.9 Diaphragmatic hernia without obstruction or gangrene (principal); K21.9 Gastro-esophageal reflux disease without esophagitis
CPT/HCPCS: 74246

== ENCOUNTER → 2018-12-13 | Outpatient (CLI) | payer MEDICARE ==
--- NOTE | 2018-12-13 11:42 | US ---
EXAMINATION TYPE: US renal artery duplex complete DATE OF EXAM: 12/13/2018 COMPARISON: CT July 29, 2018. MRI abdomen June 13, 2015 CLINICAL HISTORY: N26.1 Atrophy of kidney, I10 hypertension. MEASUREMENTS: RENAL SIZE: Rt Kidney: 11.9 x 7.5 cm Lt Kidney: 11.1 x 6.0 x 5.5 cm RESISTANCE INDEX Right: 0.96 Left: unable to obtain RA/AO RATIO (< 3.5 ) Right: 8.1 Left: unable to obtain RA VELOCITY ( < 180 cm/s) Right: 421 Left: unable to obtain Multiple cysts seen throughout both kidneys. Heavily calcified aorta. Elevated velocity proximal righ t renal artery causing stenosis. Unable to obtain arterial signals for left side. The kidney is atrop hied and there is limited arterial flow. Unable to see the proximal portion coming off aorta. The ulisses al vein is seen but not the renal artery. Non diagnostic for the left side. Atherosclerotic ectatic abdominal aorta without greater than 3 cm aneurysmal change correlates with r ecent CT. Significant stenosis and right renal arteries are present. There is cortical thinning and m ultiple simple appearing thin-walled cysts bilaterally, finding consistent with product of chronic me dical renal disease. No hydronephrosis. Asymmetric atrophy to left kidney noted. IMPRESSION: Findings from chronic medical renal disease bilaterally. Significant stenosis felt presen t bilaterally, probable occlusion of left renal artery. Need to further investigate by direct cathete r angiogram should be based on clinical correlation.
== END | disposition home or self-care (01) ==
LOC: RADUSWWP 08:49
PROVIDERS: ATTEND Family Medicine
DX: I12.9 Hypertensive chronic kidney disease with stage 1 through stage 4 chronic kidney disease, or unspecified chronic kidney disease (principal); N18.9 Chronic kidney disease, unspecified; I70.1 Atherosclerosis of renal artery
CPT/HCPCS: 93975

== ENCOUNTER → 2019-01-30 | Outpatient (CLI) | payer MEDICARE ==
[2019-01-30 16:11] LABS: African American GFR (CKD) 34.6 (60.0-200.0); Albumin 4.2 g/dL (3.80-4.90); Albumin/Globulin Ratio 2.21 (1.60-3.17); Anion Gap 7.7 mmol/L (4.00-12.00); BUN/Creat Ratio 11.9 Ratio (12.00-20.00); Calcium 9.2 mg/dL (8.7-10.3); Carbon Dioxide 27.3 mmol/L (21.6-31.8); Globulin 1.9 g/dL (1.6-3.3); Phosphorus 3.9 mg/dL (2.4-5.1); Potassium 4.9 mmol/L (3.5-5.5); Total Bilirubin 0.7 mg/dL (0.3-1.2); Total Protein 6.1 g/dL (6.2-8.2)
== END | disposition home or self-care (01) ==
LOC: LABWHC1 07:53
PROVIDERS: ATTEND Family Medicine
DX: E11.22 Type 2 diabetes mellitus with diabetic chronic kidney disease (principal)
CPT/HCPCS: 36415; 80053; 84100

== ENCOUNTER → 2019-03-07 | Outpatient (CLI) | payer MEDICARE ==
[2019-03-07 11:40] LABS: HCT 40.3 % (39.0-53.0); HGB 13.2 gm/dL (13.0-17.5); Hypochromasia Slight; MCH 28.8 pg (25.0-35.0); MCHC 32.7 g/dL (31.0-37.0); Mean Platelet Volume 6.6; Platelet Count 267 k/uL (150-450); RBC 4.59 m/uL (4.30-5.90); RDW 15.1 % (11.5-15.5); WBC 9.3 k/uL (3.8-10.6)
[2019-03-07 12:00] LABS: Potassium 3.9 mmol/L (3.5-5.1)
== END | disposition home or self-care (01) ==
LOC: LABPAT 10:59
PROVIDERS: ATTEND Internal Medicine Cardiovascular Disease
DX: Z01.812 Encounter for preprocedural laboratory examination (principal); I25.10 Atherosclerotic heart disease of native coronary artery without angina pectoris
CPT/HCPCS: 36415; 80051; 82565; 84520; 85027

== ENCOUNTER 2019-03-13 07:26 | Inpatient (IN) | payer MEDICARE ==
[~2019-03-13 07:26] MED LIST: ALPRAZolam 0.5 MG TAB PO PRN; ASPIRIN 325 MG TAB PO ONE; NITROGLYCERIN SL TABS 0.4 MG TAB SUBLINGUAL PRN; SODIUM CHLORIDE 0.9% 1,000 ML in EMPTY BAG 1 BAG IV ONE
[2019-03-13 07:45] LABS: Glucose,Whole Blood 135 mg/dL (75-99)
[2019-03-13] MEDS ORDERED: VERAPAMIL 2.5 MG/ML 2 ML AMP ONE (08:30)
[2019-03-13] MEDS ORDERED: LIDOCAINE 1% INJ 10MG/ML (20 ML MDV) ONE (08:30)
[2019-03-13] MEDS ORDERED: fentaNYL (PF) 50 MCG/ML 2 ML AMP ONE (08:40)
[2019-03-13] MEDS ORDERED: fentaNYL (PF) 50 MCG/ML 2 ML AMP IV ONE (08:45)
[2019-03-13] MEDS ORDERED: LIDOCAINE 1% INJ 10MG/ML (20 ML MDV) SQ ONE (08:45)
[2019-03-13] MEDS ORDERED: MIDAZOLAM 2 MG/2 ML VIAL IV ONE (08:45)
[2019-03-13] MEDS ORDERED: IOPAMIDOL-370 125ML BTL INJ ONE ×3 (08:56→10:20)
--- NOTE | 2019-03-13 09:21 | P.CARDCATH ---
Date of Procedure: 03/13/19 Preoperative Diagnosis: Positive stress test, preoperative clearance hypertension and diabetes Postoperative Diagnosis: Triple-vessel disease Procedure(s) Performed: Left heart catheterization without left ventriculography Description of Procedure: HISTORY: This is a 73 old gentleman with history of hypertension, diabetes and chronic renal failure with creatinine of about 2 was evaluated by stress test recently which showed ischemia in the inferolateral wall area. Patient was diagnosed to have prostate cancer and needed preop clearance. Patient is advised to have a cardiac cath for definitive diagnosis. Patient was cleared by nephrology of the procedure CONSENT:I have discussed the risks, benefits and alternative therapies for the above-mentioned procedure and for both sedation/analgesia as well as necessary blood product administration, if indicated, as they pertain to this patient. The patient has indicated understanding and acceptance of the risks and procedures discussed. PROCEDURE: Patient was brought to the lab in a fasting state. Patient was given IV sedation. The right groin is infiltrated with lidocaine and right femoral artery was entered using Seldinger technique. A 6-Maori catheter was left in place and selective coronary arteriography was performed. Patient tolerated the procedure well. No immediate complications were noted and patient was waiting to have FFR of the LAD by Dr. HARITHA Campos Conscious Sedation: Versed 0.5mg Fentanyl 25 g Duration 21minutes HEMODYNAMICS: The aortic pressure is 112/45. Left ventricle end-diastolic pressure was 16. There was no gradient across the aortic valve SELECTIVE CORONARY ARTERIOGRAPHY: LEFT MAIN: Normal length and free of any significant occlusive disease THE LEFT ANTERIOR DESCENDING CORONARY ARTERY:. This is a good caliber vessel giving rise to good-sized diagonal branch. The proximal LAD seemed to be calcified with looks sick and moderate disease with haziness. THE LEFT CIRCUMFLEX AND IS CORONARY ARTERY: This is a nondominant small vessel with about 99% stenosis proximally THE RIGHT CORONARY ARTERY:. This is a dominant vessel giving rise good-sized PDA and PLV. It has multiple lesions in the proximal mid and distal portion which appeared to be eccentric with some filling defects. The mid and proximal lesions appear to be critical LEFT VENTRICULOGRAPHY: Not performed FINAL IMPRESSION:. Triple-vessel disease with critical lesions in the RCA at multiple sites and also critical lesion in the circumflex which is a nondominant vessel. The LAD has moderate disease proximally with some filling defect. PLAN: Consider FFR of the LAD to assess the significance of the lesion. If the FFR is normal, may consider stent placement of the right and also circumflex and is staying fashion, because of his renal failure. Dr. HARITHA Campos to evaluate the patient PROGNOSIS: Guarded
[2019-03-13] MEDS ORDERED: HEPARIN SODIUM 1,000 UN/ML (10ML VL) ONE (09:52)
[2019-03-13] MEDS ORDERED: HEPARIN SODIUM 1,000 UN/ML (10ML VL) IV ONE ×2 (09:55→10:01)
[2019-03-13] MEDS ORDERED: NITROGLYCERIN 1000MCG/10ML SYRINGE INTRACORON ONE (10:06)
--- NOTE | 2019-03-13 10:57 | CE ---
CARDIAC ELECTROPHYSIOLOGY REPORT DATE OF SERVICE: 03/13/2019. PROCEDURE: Fractional flow reserve assessment of a proximal LAD lesion. PERFORMED BY: Dr. Ulises Campos. Moderate conscious sedation time was 23 minutes. Patient was administered Versed. Oxygen saturation, hemodynamics and EKG were monitored closely. PROCEDURE NOTE: The existing 6-Macedonian introducer in the right correction was clinical information Mr. Camacho underwent a cardiac cath by Dr. Price, which revealed a significant lesion in the mid RCA, a dominant vessel. Nondominant circumflex was also highly diseased. LAD had a proximal eccentric 55%-60% lesion. The patient was advised FFR to assess significance of LAD to make a decision regarding revascularization. The rationale of this was explained to the patient and procedure was performed in the same setting. The existing 6-Macedonian introducer was used to perform the procedure. I used a JL3.5 guide catheter to cannulate the left coronary artery. Verrata wire was used to cross the lesion wire was kept distally. The wire was zeroed and the pressures were normalized. Intracoronary nitroglycerin was given. The guide catheter was kept away from the ostium. Patient received 4000 units of heparin. I performed an IFR and this was about 0.68 and repeat IFR was 0.70. These numbers suggest that the LAD lesion is quite significant. The wire was taken out. ACT was 231. The sheath was sutured, will be pulled 2 hours later. Findings on the FFR were explained to the patient. I am recommending that 1st option should be aortocoronary bypass surgery, but patient has is not current and is not clear about which way he wants to go. He is going to discuss with Dr. Price later on today. We will also have a discussion with the urologist since patient has a question of prostate CA. The patient will be kept overnight hydrated and discharged tomorrow after checking renal function. MMODL / IJN: [id number] /
[2019-03-13 16:35] LABS: Glucose,Whole Blood 111 mg/dL (75-99)
[2019-03-13] MEDS: glipiZIDE 10 MG TAB PO SCH (17:20)
[2019-03-13] MEDS: SODIUM CHLORIDE 0.9% 1,000 ML IV SCH ×2 (17:20→20:26)
[2019-03-13] MEDS: hydrALAZINE HCL 50 MG TAB PO SCH ×2 (17:20→20:25)
[2019-03-13 20:11] LABS: Glucose,Whole Blood 317 mg/dL (75-99)
[2019-03-13] MEDS: APIXABAN 2.5 MG TABLET PO SCH (20:25)
[2019-03-13] MEDS: METOPROLOL TARTRATE 50 MG TAB PO SCH (20:25)
[2019-03-13] MEDS: ATORVASTATIN 20 MG TAB PO SCH (20:25)
[2019-03-13] MEDS ORDERED: ISOSORBIDE DINITRATE 20 MG TAB PO SCH (21:00)
[2019-03-14 07:06] LABS: Glucose,Whole Blood 182 mg/dL (75-99)
[2019-03-14] MEDS: hydrALAZINE HCL 50 MG TAB PO SCH ×3 (07:38→20:51)
[2019-03-14] MEDS: glipiZIDE 10 MG TAB PO SCH ×2 (07:38→16:44)
[2019-03-14] MEDS: FENOFIBRATE 160 MG TAB PO SCH (07:38)
[2019-03-14] MEDS: LISINOPRIL 10 MG TAB PO SCH (07:38)
[2019-03-14] MEDS: amLODIPine 10 MG TAB PO SCH (07:38)
[2019-03-14] MEDS: ASPIRIN 81 MG PO SCH (07:39)
[2019-03-14] MEDS: PANTOPRAZOLE 40 MG TABLET PO SCH (07:39)
[2019-03-14] MEDS: APIXABAN 2.5 MG TABLET PO SCH (07:39)
[2019-03-14] MEDS: ISOSORBIDE MONONITRATE ER 30 MG TAB.ER.24H PO SCH (07:39)
[2019-03-14] MEDS: LINAGLIPTIN 5 MG TABLET PO SCH (07:39)
[2019-03-14] MEDS: METOPROLOL TARTRATE 50 MG TAB PO SCH ×2 (07:41→20:50)
[2019-03-14] MEDS ORDERED: FUROSEMIDE 10 MG/ML 4 ML VIAL IV STA (07:52)
[2019-03-14] MEDS ORDERED: SYMBICORT 160-4.5 MCG INHALER INHALATION SCH (08:00)
--- NOTE | 2019-03-14 08:06 | P.PN ---
Subjective Progress Note Date: 03/14/19 This is a 73-year-old gentleman with history of COPD, diabetes and hypertension who was evaluated by cardiac catheterization yesterday because of positive stress test. He was found to have triple-vessel disease with critical lesion involving the circumflex, which is nondominant and also in the right coronary artery. The left anterior descending coronary artery had moderate to severe disease with some haziness in the proximal portion. Patient had an FFR which was size to of the significant lesion. Patient was advised revascularization preferably with bypass surgery. Patient was not inclined to have bypass surgery and we are thinking of going stages stent placement of the LAD and the right coronary artery. Patient has renal failure with creatinine of 2 and because of that procedure was going to be scheduled later on. Patient was kept in the hospital for hydration. About midnight, Apparently patient became short of breath and his fluids were cut back. Patient also has been having liquid diarrhea. This morning patient became progressively more short of breath, wheezing. It is suspected that patient might have dull pulmonary edema. We are getting a chest x-ray. Patient is given IV Lasix and Nitropaste. EKG is being obtained along with troponins blood work including CBC and CMP being obtained. Patient is being transferred to intensive care unit. A pulmonary consult is also being obtained Objective - Vital Signs Vital signs: Vital Signs Temp 98.2 F 03/14/19 07:58 Pulse 88 03/14/19 07:58 Resp 28 H 03/14/19 07:58 BP 159/83 03/14/19 07:58 Pulse Ox 85 L 03/14/19 07:58 Intake & Output 03/13/19 03/14/19 03/14/19 18:59 06:59 18:59 Intake Total 775 Output Total 3 Balance 775 -3 Weight 75.1 kg Intake: IV 775 Sodium Chloride 0.9% 1, 300 000 ml @ 75 mls/hr IV . [id number] [facility] Rx#:[id number] Output: Stool 3 Other: Voiding Method Toilet Urinal # Voids 1 1 - Exam GENERAL EXAM: Patient is alert but appears to be in moderate respiratory distress with sweating HEENT: Normocephalic. Normal reaction of pupils, equal size, normal range of extraocular motion. No erythema or exudates in the throat. NECK: Engorged neck veins CHEST: No chest wall deformity. LUNGS: Bilateral expiratory wheezes] HEART: S1 and S2 normal with no audible mumurs or gallops. Regular rhythm, femor als equal on both sides.. ABDOMEN: No hepatosplenomegaly, normal bowel sounds, no guarding or rigidity. SKIN: No rashes CENTRAL NERVOUS SYSTEM: No focal deficits. EXTREMITIES: No cyanosis, clubbing or edema. - Labs Labs: Abnormal Lab Results - Last 24 Hours (Table) 03/13/19 03/13/19 03/14/19 Range/Units 16:33 20:04 07:05 POC Glucose (mg/dL) 111 H 317 H 182 H (75-99) mg/dL Assessment and Plan (1) Triple vessel disease of the heart Current Visit: Yes Status: Acute Code(s): I25.10 - ATHSCL HEART DISEASE OF [place] CORONARY ARTERY W/O ANG PCTRS SNOMED Code(s): 282850528 (2) Acute exacerbation of chronic obstructive airways disease Current Visit: No Status: Acute Code(s): J44.1 - CHRONIC OBSTRUCTIVE PULMON HEATH DISEASE W (ACUTE) EXACERBATION SNOMED Code(s): 651397068 (3) Pulmonary edema Current Visit: Yes Status: Acute Code(s): J81.1 - CHRONIC PULMONARY EDEMA SNOMED Code(s): 14323872 Plan: Patient is being transferred to intensive care unit. Pulmonary consult is requested. Patient is going to see her IV Lasix Nitropaste and probable updraft treatments. Blood work included troponins. We'll obtain EKG to be obtained. Further recommendation will depend upon clinical course.
[2019-03-14] MEDS: NITROGLYCERIN OINT 1 INCH/GM PACKET TOPICAL SCH ×4 (08:08→23:52)
[2019-03-14 08:10] LABS: Basophils % (A) 0 %; Eosinophils # (A) 0.1 k/uL (0-0.7); Eosinophils % (A) 0 %; HCT 42.1 % (39.0-53.0); HGB 13.3 gm/dL (13.0-17.5); Hypochromasia Slight; Lymphocytes # (A) 0.7 k/uL (1.0-4.8); Lymphocytes % (A) 4 %; MCH 27.9 pg (25.0-35.0); MCHC 31.7 g/dL (31.0-37.0); MCV 88.2 fL (80.0-100.0); Mean Platelet Volume 8.1; Monocytes # (A) 0.9 k/uL (0-1.0); Monocytes % (A) 6 %; Neutrophils # (A) 15.4 k/uL (1.3-7.7); Neutrophils % (A) 89 %; Platelet Count 268 k/uL (150-450); RBC 4.78 m/uL (4.30-5.90); RDW 14.9 % (11.5-15.5); WBC 17.3 k/uL (3.8-10.6)
[2019-03-14 08:37] LABS: Glucose,Whole Blood 240 mg/dL (75-99)
[2019-03-14 08:54] LABS: Albumin 3.7 g/dL (3.5-5.0); Calcium 9.6 mg/dL (8.4-10.2); Potassium 4.2 mmol/L (3.5-5.1); Total Protein 6.5 g/dL (6.3-8.2)
--- NOTE | 2019-03-14 08:59 | XR ---
EXAMINATION TYPE: XR chest 1V portable DATE OF EXAM: 03/14/2019 COMPARISON: 01/29/2018 HISTORY: Shortness of breath FINDINGS: Noted is pulmonary venous congestion with scattered infiltrates. There is also cardiomegaly and small effusions. IMPRESSION: Findings compatible with congestive failure. Infiltrates of other etiology are not excluded. Clinical correlation and progress studies are recommended.
[2019-03-14] MEDS ORDERED: FUROSEMIDE 40 MG TAB PO SCH (09:00)
[2019-03-14 09:20] LABS: Prothrombin Time 10.7 sec (9.0-12.0)
[2019-03-14 09:24] LABS: Appearance,Urine Clear (Clear); Color,Urine Yellow; Protein,Urine Negative (Negative); Specific Gravity,Urine 1.011 (1.001-1.035)
[2019-03-14 09:25] LABS: Bilirubin,Urine Negative (Negative); Blood,Urine Negative (Negative); Glucose,Urine (UA) Negative (Negative); Ketones,Urine Negative (Negative); Leukocyte Esterase,Urine Negative (Negative); Nitrite,Urine Negative (Negative); Urobilinogen,Urine <2.0 mg/dL (<2.0)
--- NOTE | 2019-03-14 09:50 | CONS ---
CONSULTATION PULMONARY/CRITICAL CARE CONSULTATION DATE OF CONSULTATION: March 14, 2019 This is a 73-year-old gentleman who was recently in observation unit. The patient underwent cardiac catheterization yesterday. The patient was having cardiac catheterization because he was suppose to have some prostate surgery performed. It was in attempt to do a preop clearance on him from the cardiac standpoint. The patient carries with him a diagnosis of COPD, previous non ST-segment elevation myocardial infarction, CAD, myocardial infarction, hypertension, hyperlipidemia, diabetes, stage 3 chronic kidney disease, polycystic kidney disease, previous heavy tobacco use, 1 pack a day for 55 years, with ongoing tobacco use, and bladder/prostate cancer. Anyway, the patient did have his catheterization yesterday. The catheterization revealed triple- vessel disease with critical lesions in the RCA at multiple sites and also critical lesion in the circumflex, which is a nondominant vessel. The LAD had moderate disease proximally with some filling defect. The plan was to initially treat the patient medically and just observe the patient according to Dr. Price. Apparently last night he became very short of breath and tachypneic. Chest x-ray today shows evidence of significant fluid overload. He has significant cephalization of fluid in the minor fissure on the right and bilateral pleural effusions. Edema is somewhat asymmetric, more right than left sided. Anyway, because of the worsening respiratory status, and his low saturations on 3 L, the patient was transferred from the observation unit to the ICU. Currently now he is on 6 L nasal cannula. His IV that was running at 75 mL an hour all night had been turned down just to KVO. The patient will get blood draws done. That will include a CBC, comprehensive metabolic profile and an N terminal proBNP. In addition, we will make sure he is on appropriate medications for COPD such as DuoNeb, Pulmicort, Perforomist, etc. ALLERGIES: His current allergies are none. HOME MEDICATIONS: His home medications include amlodipine, Zocor, hydralazine, glipizide, Imdur, Breo, Tricor, aspirin, omeprazole, metoprolol, lisinopril, Tradjenta, Lasix and Eliquis. MEDICAL HISTORY: Medical history includes COPD, non ST-segment elevation myocardial infarction, CAD, hypertension, hyperlipidemia, diabetes, chronic kidney disease, polycystic kidney disease, chronic tobacco use, and bladder cancer. SURGICAL HISTORY: Surgical history includes cardiac recent cardiac catheterization and previous history of TURP with intravesical chemotherapy. SOCIAL HISTORY: Positive for ongoing tobacco use. He has been smoking for 55 years at least a pack a day. He drinks alcohol occasionally. No illicit drug use. FAMILY HISTORY: Positive for brother with CAD. REVIEW OF SYSTEMS: CONSTITUTIONAL: Negative. NEUROLOGIC: Negative. HEENT: Negative. CARDIOVASCULAR: Negative. PULMONARY: Shortness of breath, difficulty breathing. GI: Diarrhea. : Negative. RHEUMATOLOGIC: Negative. IMMUNOLOGIC: Negative. ENDOCRINOLOGIC: Negative. DERMATOLOGIC: Negative. PHYSICAL EXAMINATION: VITAL SIGNS: Current vital signs are reviewed. Temperature 98.2, heart rate 81, respiratory rate about 25 breaths per minute, blood pressure 145/79, mean 101, saturations are 92% on 6 L, 85% on 3 L. GENERAL: He appears to be quite tachypneic and does have some conversational dyspnea. No use of accessory muscles or audible wheezing. HEENT: Examination is grossly unremarkable. Nasal O2 in place. NECK: Supple. Full range of motion. No adenopathy. CARDIOVASCULAR: Examination reveals regular rhythm and rate. Heart rate 81. He is in sinus rhythm. LUNGS: Reveal bilateral rhonchi and crackles. Breath sounds equal. Some expiratory wheezes are also appreciated. Breath sounds are diminished throughout. ABDOMEN: Soft. EXTREMITIES: Are intact. No edema. SKIN: Without rash. NEUROLOGIC: Examination is nonfocal. LABS: Labs are reviewed. The only thing back thus far is a white count 17.3, hemoglobin 13.3, hematocrit 42.1, platelet count 268,000. Troponin was 0.044. BNP and CMP are currently pending as is the lactic acid. IMAGING: Chest x-ray shows clear-cut fluid overload. There is cardiomegaly. There is bilateral cephalization. There is fluid in the minor fissure. He has got bilateral pleural effusions, and somewhat asymmetric pulmonary edema, more right than left sided. MEDICATIONS: Current medications are reviewed. He is on Xanax, amlodipine, Eliquis, aspirin, Lipitor, Symbicort, Lofibra, Lasix, glipizide, Apresoline, Imdur, Tradjenta, lisinopril, metoprolol, nitroglycerin ointment, nitroglycerin tablets and Protonix. ASSESSMENT: 1. Shortness of breath, acute, likely related to fluid overload. Doubt pneumonia. 2. Probable significant underlying chronic obstructive pulmonary disease from 55 years of tobacco use at 1 pack a day and current ongoing tobacco use. 3. Postoperative day #1 status post cardiac catheterization showing significant three- vessel coronary artery disease as mentioned above. 4. Previous history of non ST-segment elevation myocardial infarction. 5. History of coronary artery disease. 6. Hypertension, by history. 7. History of hyperlipidemia. 8. Diabetes mellitus. 9. Chronic kidney disease, stage 3. 10.Polycystic kidney disease. 11.History of bladder cancer/prostate cancer. PLAN: The patient will receive oxygen at 6 L rather than 3 L. He will get Lasix. We have increased his Lasix to 40 mg q.8 hours. We will put him on some DuoNeb q.i.d. and p.r.n. Will discontinue the Symbicort in favor of Pulmicort 1 mg and Perforomist 20 mcg twice a day. No steroids are necessary. Additional recommendations and suggestions are forthcoming. We will do some additional blood work including a CMP, N terminal proBNP, and lactic acid. Prognosis is guarded. I did speak to the court worker. No additional recommendations are made. MMODL / IJN: [id number] /
--- NOTE | 2019-03-14 11:20 | PN ---
PROGRESS NOTE This patient underwent a cardiac catheterization yesterday because of the positive stress test, patient had significant triple-vessel disease and patient was supposed to have a staged angioplasty. Patient got significantly short of breath earlier this morning and was transferred to the ICU. Patient's respiratory rate was 28, oxygen saturation was 95%. Chest x-ray suggestive of congestive heart failure. Patient has received IV Lasix and since then he has improved. He has been diuresing. He denies any chest pain. Blood pressure is 145/79 mmHg. First and second heart sounds are normal. Lungs reveal bilateral rales. Chest x-ray suggestive of congestive cardiac failure. Patient has been diuresed with IV Lasix. IMPRESSION: Acute congestive heart failure, most likely secondary to fluid overload. We will repeat the EKG. Echocardiogram is also ordered. Continue the rest of the medications. MMODL / IJN: [id number] /
[2019-03-14] MEDS: IPRATROPIUM-ALBUTEROL 3 ML NEB INHALATION SCH ×3 (11:47→20:29)
[2019-03-14 12:43] LABS: Cholesterol 138 mg/dL (<200); HDL Cholesterol 45 mg/dL (40-60); LDL Cholesterol,Calculated 70 mg/dL (0-99); Triglycerides 113 mg/dL (<150)
--- NOTE | 2019-03-14 13:20 | US ---
EXAMINATION TYPE: US carotid duplex BILAT DATE OF EXAM: 03/14/2019 COMPARISON: NONE CLINICAL HISTORY: preop cabg. no h/o stroke, pre open heart EXAM MEASUREMENTS: RIGHT: Peak Systolic Velocity (PSV) cm/sec ----- Right CCA: 59.3 ----- Right ICA: 116.0 ----- Right ECA: 149.0 ICA/CCA ratio: 1.9 RIGHT: End Diastole cm/sec ----- Right CCA: 13.2 ----- Right ICA: 25.3 ----- Right ECA: 0.0 LEFT: Peak Systolic Velocity (PSV) cm/sec ----- Left CCA: 84.9 ----- Left ICA: 206.0 ----- Left ECA: 143.0 ICA/CCA ratio: 2.4 LEFT: End Diastole cm/sec ----- Left CCA: 14.9 ----- Left ICA: 31.5 ----- Left ECA: 0.0 VERTEBRALS (direction of flow): Right Vertebral: Antegrade Left Vertebral: not seen Rhythm: Normal IMPRESSION: Heterogeneous plaque with stenosis noted bilaterally, left side more significant at mid ICA Criteria for Assigning % of Stenosis / Diameter reduction (Estimation based on the indirect measurements of the internal carotid artery velocities (ICA PSV). 1. Normal (no stenosis)=ICA PSV < 125 cm/s: ratio < 2.0: ICA EDV<40 cm/s. 2. Less than 50% stenosis=ICA PSV < 125 cm/s: ratio < 2.0: ICA EDV<40 cm/s. 3. 50 to 69% stenosis=ICA PSV of 125 to 230 cm/s: ration 2.0 ? 4.0: ICA EDV 40-100 cm/s. 4. Greater than 70% stenosis to near occlusion= ICA PSV > 230 cm/s: ratio > 4.0: ICA EDV > 100 cm/s. 5. Near occlusion= ICA PSV velocities may be low or undetectable: variable ratio and ICA EDV. 6. Total occlusion=unable to detect flow.
[2019-03-14] MEDS: FUROSEMIDE 10 MG/ML 4 ML VIAL IV SCH ×2 (13:43→23:52)
--- NOTE | 2019-03-14 15:18 | P.GSCN ---
History of Present Illness Consult date: 03/14/19 Reason for Consult: Triple vessel coronary artery disease Requesting physician: Meme Price History of present illness: This is a 73-year-old gentleman who follows on an outpatient basis with Dr. Rigo Aranda. He has a previous medical history of coronary artery disease with previous non-STEMI, hypertension, hyperlipidemia, paroxysmal atrial fibrillation on chronic Eliquis for anticoagulation,type 2 diabetes, COPD with current tobacco dependence, chronic kidney disease stage III with polycystic kidney disease, and bladder/prostate cancer. He needed cardiac clearance for prostate surgery, failed his stress test, and was brought in for elective heart catheterization yesterday. He had no symptoms.The heart cath revealed triple vessel coronary artery disease with moderate disease in the proximal LAD, pro ximal circumflex stenosis of 99%, and right coronary artery with multiple lesions present. To further evaluate the extent of disease in the LAD, FFR was completed with results of 0.68-0.70. The patient was given IV fluids overnight to hydrate his kidneys, and this morning he was in respiratory distress and brought to the intensive care unit for further evaluation. Currently he is on BiPAP, in no acute distress. Due to the nature of his disease process consultation was placed for Dr. Doan from cardiothoracic surgery. Review of Systems Review of systems was completed and was negative Past Medical History Past Medical History: Atrial Fibrillation, Coronary Artery Disease (CAD), COPD, Diabetes Mellitus, GERD/Reflux, Hyperlipidemia, Myocardial Infarction ([place]), Prostate Disorder, Renal Disease Additional Past Medical History / Comment(s): [place] x 2, see Dr Price H&P, renal failure, diff urinating due to enlarged prostate, hx bladder cancer, paroxysmal atrial fibrillation on Eliquis Last Myocardial Infarction Date:: 01/2018 History of Any Multi-Drug Resistant Organisms: None Reported Past Surgical History: Heart Catheterization, Hernia Repair, Orthopedic Surgery Additional Past Surgical History / Comment(s): surgery to remove bladder tumor, rt shoulder surgery, Past Anesthesia/Blood Transfusion Reactions: No Reported Reaction Smoking Status: Current every day smoker Past Alcohol Use History: None Reported Past Drug Use History: None Reported - Past Family History Brother(s) Family Medical History: Coronary Artery Disease (CAD) Mother Family Medical History: No Reported History Medications and Allergies Home Medications Medication Instructions Recorded Confirmed Type Aspirin EC [Ecotrin Low Dose] 81 mg PO DAILY 01/26/18 03/13/19 History Fenofibrate Nanocrystallized 145 mg PO DAILY 01/26/18 03/13/19 History [Tricor] Linagliptin [Tradjenta] 5 mg PO DAILY 01/26/18 03/13/19 History Metoprolol Tartrate [Lopressor] 100 mg PO BID 01/26/18 03/13/19 History Omeprazole [PriLOSEC] 20 mg PO DAILY 01/26/18 03/13/19 History Simvastatin 40 mg PO HS 01/26/18 03/13/19 History glipiZIDE [Glucotrol] 10 mg PO AC-BID 01/26/18 03/13/19 History Apixaban [Eliquis] 2.5 mg PO BID #60 tablet 01/30/18 03/11/19 Rx Furosemide [Lasix] 40 mg PO DAILY #30 tab 01/30/18 03/13/19 Rx Lisinopril [Zestril] 10 mg PO DAILY #30 tab 01/30/18 03/13/19 Rx Fluticasone/Vilanterol [Breo 1 inhalation INHALATION QAM 03/11/19 03/13/19 History Ellipta 200-25 Mcg INH] Isosorbide Mononitrate [Isosorbide 30 mg PO DAILY 03/11/19 03/13/19 History Mononitrate ER] amLODIPine [Norvasc] 10 mg PO DAILY 03/11/19 03/13/19 History hydrALAZINE HCL [Apresoline] 50 mg PO TID 03/11/19 03/13/19 History Allergies Allergy/AdvReac Type Severity Reaction Status Date / Time No Known Allergies Allergy Verified 03/11/19 14:35 Surgical - Exam Vital Signs Temp Pulse Resp BP Pulse Ox 98.1 F 84 18 146/70 95 03/13/19 07:43 03/13/19 07:43 03/13/19 07:43 03/13/19 07:43 03/13/19 07:43 - General well developed, well nourished, no distress, no pain - Eyes normal ocular movement - ENT no hearing loss - Neck no masses, no bruits, trachea midline - Respiratory Lungs sounds diminished bilaterally with coarse breath sounds bilateral bases. Respirations even, nonlabored. Currently on BiPAP with FiO2 at 40%, IPAP 12, EPAP 5 with oxygen saturation 92%. - Cardiovascular S1, S2 present. Regular rate and rhythm, sinus rhythm on telemetry. Palpable peripheral pulses bilaterally. No edema present. No calf pain or tenderness noted. Positive varicosities noted to bilateral lower extremities. - Abdomen Abdomen: soft, non tender, bowel sounds - Genitourinary Kam present draining clear, yellow urine - Rectum deferred - Integumentary no rash, no growths - Neurologic normal coordination, normal sensation - Musculoskeletal normal posture - Psychiatric oriented to time, oriented to person, oriented to place, speech is normal, memory intact Results - Labs 03/14/19 07:58 03/14/19 07:09 Abnormal Lab Results - Last 24 Hours (Table) 03/13/19 03/13/19 03/14/19 Range/Units 16:33 20:04 07:05 WBC (3.8-10.6) k/uL Neutrophils # (1.3-7.7) k/uL Lymphocytes # (1.0-4.8) k/uL Creatinine (0.66-1.25) mg/dL Glucose (74-99) mg/dL POC Glucose (mg/dL) 111 H 317 H 182 H (75-99) mg/dL Troponin I (0.000-0.034) ng/mL 03/14/19 03/14/19 03/14/19 Range/Units 07:09 07:58 08:17 WBC 17.3 H (3.8-10.6) k/uL Neutrophils # 15.4 H (1.3-7.7) k/uL Lymphocytes # 0.7 L (1.0-4.8) k/uL Creatinine 1.70 H (0.66-1.25) mg/dL Glucose 187 H (74-99) mg/dL POC Glucose (mg/dL) (75-99) mg/dL Troponin I 0.044 H* (0.000-0.034) ng/mL 03/14/19 Range/Units 08:35 WBC (3.8-10.6) k/uL Neutrophils # (1.3-7.7) k/uL Lymphocytes # (1.0-4.8) k/uL Creatinine (0.66-1.25) mg/dL Glucose (74-99) mg/dL POC Glucose (mg/dL) 240 H (75-99) mg/dL Troponin I (0.000-0.034) ng/mL Diabetes panel 03/14/19 03/14/19 Range/Units 07:09 07:58 Sodium 140 (137-145) mmol/L Potassium 4.2 (3.5-5.1) mmol/L Chloride 107 (98-107) mmol/L Carbon Dioxide 23 (22-30) mmol/L BUN 20 (9-20) mg/dL Creatinine 1.70 H (0.66-1.25) mg/dL Glucose 187 H (74-99) mg/dL Calcium 9.6 (8.4-10.2) mg/dL AST 19 (17-59) U/L ALT 24 (21-72) U/L Alkaline Phosphatase 69 (38-126) U/L Total Protein 6.5 (6.3-8.2) g/dL Albumin 3.7 (3.5-5.0) g/dL Triglycerides 113 (<150) mg/dL HDL Cholesterol 45 (40-60) mg/dL Calcium panel 03/14/19 Range/Units 07:09 Calcium 9.6 (8.4-10.2) mg/dL Albumin 3.7 (3.5-5.0) g/dL Pituitary panel 03/14/19 Range/Units 07:09 Sodium 140 (137-145) mmol/L Potassium 4.2 (3.5-5.1) mmol/L Chloride 107 (98-107) mmol/L Carbon Dioxide 23 (22-30) mmol/L BUN 20 (9-20) mg/dL Creatinine 1.70 H (0.66-1.25) mg/dL Glucose 187 H (74-99) mg/dL Calcium 9.6 (8.4-10.2) mg/dL Adrenal panel 03/14/19 Range/Units 07:09 Sodium 140 (137-145) mmol/L Potassium 4.2 (3.5-5.1) mmol/L Chloride 107 (98-107) mmol/L Carbon Dioxide 23 (22-30) mmol/L BUN 20 (9-20) mg/dL Creatinine 1.70 H (0.66-1.25) mg/dL Glucose 187 H (74-99) mg/dL Calcium 9.6 (8.4-10.2) mg/dL Total Bilirubin 1.0 (0.2-1.3) mg/dL AST 19 (17-59) U/L ALT 24 (21-72) U/L Alkaline Phosphatase 69 (38-126) U/L Total Protein 6.5 (6.3-8.2) g/dL Albumin 3.7 (3.5-5.0) g/dL - Imaging Chest x-ray: report reviewed, image reviewed Additional studies: heart catheterization findings reviewed with Dr. Doan Assessment and Plan Assessment: 1. Triple-vessel coronary artery disease 2. Acute hypoxic respiratory failure requiring initiation of BiPAP 3. History of coronary artery disease with previous non-STEMI 4. Hypertension 5. Hyperlipidemia 6. Paroxysmal atrial fibrillation on chronic Eliquis 7. Type 2 diabetes 8. Current tobacco dependence 9. COPD 10. Chronic kidney disease stage III with polycystic kidney disease 11. Bladder/prostate cancer Plan: The patient was seen and examined at the bedside. Chart/diagnostics were reviewed. Heart catheterization films were reviewed with Dr. Doan. The usual perioperative course for open-heart surgery was discussed with the patient, ri sks and benefits were reviewed. Preoperative testing was initiated. At this time our recommendation is for the patient to be treated and recovered from his current acute illness. As he was stable upon admission and came in as an out- patient surgery is not imminent or emergent. Continue aspirin, statin, beta luisa therapy. Dr. Doan felt the patient could be discharged to home to be brought back in for elective surgery. Continued medical management per primary care service, cardiology, pulmonology. Thank you Dr. Price for this consult. We look forward to working with you in the care of your patient. Time with Patient: Greater than 30
[2019-03-14] MEDS ORDERED: HEPARIN SODIUM,PORCINE 5,000 UNIT/ML 1 ML VIAL IV STA (17:38)
[2019-03-14] MEDS: HEPARIN SOD,PORK IN 0.45% NACL 25,000 UNIT in 0.45% NACL 1 250ML.BAG IV SCH (17:51)
[2019-03-14] MEDS: ONDANSETRON 4 MG/2 ML VIAL IVP PRN (18:10)
[2019-03-14 18:54] LABS: Glucose,Whole Blood 244 mg/dL (75-99)
[2019-03-14] MEDS: INSULIN ASPART (NovoLOG) 100 UNIT/ML VIAL SQ SCH ×2 (19:05→20:57)
[2019-03-14 19:29] LABS: Hepatitis A Antibody IgM Non-Reactive (Non-Reactive); Hepatitis B Core IgM Non-Reactive (Non-Reactive); Hepatitis B Surface Antigen Non-Reactive (Non-Reactive); Hepatitis C IgG Antibody Non-Reactive (Non-Reactive)
[2019-03-14] MEDS: FORMOTEROL FUMARATE 20 MCG/2 ML NEBU INHALATION SCH (20:29)
[2019-03-14] MEDS: BUDESONIDE 1 MG/2 ML NEBU INHALATION SCH (20:29)
[2019-03-14 20:49] LABS: Glucose,Whole Blood 169 mg/dL (75-99)
[2019-03-14] MEDS: ATORVASTATIN 20 MG TAB PO SCH (20:51)
[2019-03-14] MEDS ORDERED: INSULIN ASPART (NovoLOG) 100 UNIT/ML VIAL SQ SCH (21:00)
[2019-03-14 21:08] LABS: Glucose,Whole Blood 159 mg/dL (75-99)
[2019-03-14 21:37] LABS: Hemoglobin A1C 8.9 % (4.0-6.0)
[2019-03-15 05:52] LABS: HCT 39.1 % (39.0-53.0); HGB 12.6 gm/dL (13.0-17.5); MCHC 32.2 g/dL (31.0-37.0); MCV 87.1 fL (80.0-100.0); Mean Platelet Volume 8.1; Platelet Count 191 k/uL (150-450); RBC 4.49 m/uL (4.30-5.90); RDW 15.2 % (11.5-15.5); WBC 15.2 k/uL (3.8-10.6)
[2019-03-15 06:04] LABS: Calcium 9.2 mg/dL (8.4-10.2); Potassium 3.5 mmol/L (3.5-5.1)
[2019-03-15] MEDS: IPRATROPIUM-ALBUTEROL 3 ML NEB INHALATION SCH ×4 (06:51→19:53)
[2019-03-15] MEDS: BUDESONIDE 1 MG/2 ML NEBU INHALATION SCH ×2 (06:51→19:52)
[2019-03-15] MEDS: FORMOTEROL FUMARATE 20 MCG/2 ML NEBU INHALATION SCH ×2 (06:51→19:52)
[2019-03-15 07:00] LABS: Glucose,Whole Blood 140 mg/dL (75-99)
[2019-03-15] MEDS: INSULIN ASPART (NovoLOG) 100 UNIT/ML VIAL SQ SCH ×4 (07:09→20:59)
[2019-03-15] MEDS: NITROGLYCERIN OINT 1 INCH/GM PACKET TOPICAL SCH ×3 (07:09→19:18)
--- NOTE | 2019-03-15 08:40 | P.PN ---
Subjective Progress Note Date: 03/15/19 Principal diagnosis: Triple-vessel coronary artery disease, acute hypoxic respiratory failure requiring initiation of BiPAP. Previous medical history of coronary artery disease with previous non-STEMI, hypertension, hyperlipidemia, paroxysmal atrial fibrillation on chronic Eliquis for anticoagulation, type 2 diabetes with current hemoglobin A1c 8.9%, COPD with current tobacco dependence, chronic kidney disease stage III with polycystic kidney disease, bladder cancer, prostat e cancer. The patient's currently laying in bed in the intensive care unit in no acute distress. He was able to tolerate high flow nasal cannula yesterday evening for approximate 4 hours before having BiPAP placed back on for the evening, was taken off BiPAP this morning and placed on 7 L high flow nasal cannula with oxygen saturation 96%. Receiving IV Lasix and diuresing nicely. Patient denies any chest pain, states his shortness of breath is significantly better. Troponins did elevate as high as 4.77, no EKG changes from previous. Currently on IV heparin. Objective - Vital Signs Vital signs: Vital Signs Temp 97.8 F 03/15/19 04:00 Pulse 89 03/15/19 07:17 Resp 19 03/15/19 07:00 BP 143/71 03/15/19 07:00 Pulse Ox 97 03/15/19 07:00 Intake & Output 03/14/19 03/15/19 03/15/19 18:59 06:59 18:59 Intake Total 300 825 75 Output Total 2156 820 50 Balance -1856 5 25 Weight 72.8 kg Intake: IV 825 75 Sodium Chloride 0.9% 1, 825 75 000 ml @ 75 mls/hr IV . [id number] [facility] Rx#:[id number] Oral 300 Output: Urine 2150 820 50 Stool 6 Other: Voiding Method Indwelling Catheter Indwelling Catheter - Constitutional General appearance: Present: cooperative, no acute distress - Respiratory Details: Lungs sounds diminished bilaterally with expiratory wheezes heard in the left base. Respirations even, nonlabored. Currently on 7 L high flow nasal cannula with oxygen saturation 96%. - Cardiovascular Details: S1, S2 present. Regular rate and rhythm, sinus rhythm on telemetry. Palpable peripheral pulses bilaterally. No edema present. No calf pain or tenderness noted. SCDs present. - Gastrointestinal Gastrointestinal Comment(s): Abdomen soft, nontender, nondistended. Active bowel sounds present 4 quadrants. - Genitourinary Genitourinary Comment(s): Kam present draining clear, yellow urine. Output overnight 45-70 mL per hour, prior to that patient was diuresing 100-300 mL per hour, 2970 mL in the last 24 hours. - Integumentary Integumentary Comment(s): skin is warm and dry without evidence of good perfusion - Neurologic Neurologic: Present: CNII-XII intact - Musculoskeletal Musculoskeletal: Present: strength equal bilaterally - Psychiatric Psychiatric: Present: A&O x's 3, appropriate affect, intact judgment & insight - Allied health notes Allied health notes reviewed: nursing - Labs CBC & Chem 7: 03/15/19 05:27 03/15/19 05:27 Labs: Abnormal Lab Results - Last 24 Hours (Table) 03/14/19 03/14/19 03/14/19 Range/Units 07:09 07:58 07:58 WBC 17.3 H (3.8-10.6) k/uL Hgb (13.0-17.5) gm/dL Neutrophils # 15.4 H (1.3-7.7) k/uL Lymphocytes # 0.7 L (1.0-4.8) k/uL APTT (22.0-30.0) sec Sodium (137-145) mmol/L BUN (9-20) mg/dL Creatinine 1.70 H (0.66-1.25) mg/dL Glucose 187 H (74-99) mg/dL POC Glucose (mg/dL) (75-99) mg/dL Hemoglobin A1c 8.9 H (4.0-6.0) % Troponin I (0.000-0.034) ng/mL 03/14/19 03/14/19 03/14/19 Range/Units 08:17 08:35 14:10 WBC (3.8-10.6) k/uL Hgb (13.0-17.5) gm/dL Neutrophils # (1.3-7.7) k/uL Lymphocytes # (1.0-4.8) k/uL APTT (22.0-30.0) sec Sodium (137-145) mmol/L BUN (9-20) mg/dL Creatinine (0.66-1.25) mg/dL Glucose (74-99) mg/dL POC Glucose (mg/dL) 240 H (75-99) mg/dL Hemoglobin A1c (4.0-6.0) % Troponin I 0.044 H* 2.170 H* (0.000-0.034) ng/mL 03/14/19 03/14/19 03/14/19 Range/Units 18:52 19:48 20:47 WBC (3.8-10.6) k/uL Hgb (13.0-17.5) gm/dL Neutrophils # (1.3-7.7) k/uL Lymphocytes # (1.0-4.8) k/uL APTT (22.0-30.0) sec Sodium (137-145) mmol/L BUN (9-20) mg/dL Creatinine (0.66-1.25) mg/dL Glucose (74-99) mg/dL POC Glucose (mg/dL) 244 H 169 H (75-99) mg/dL Hemoglobin A1c (4.0-6.0) % Troponin I 4.770 H* (0.000-0.034) ng/mL 03/14/19 03/15/19 03/15/19 Range/Units 21:06 00:47 02:29 WBC (3.8-10.6) k/uL Hgb (13.0-17.5) gm/dL Neutrophils # (1.3-7.7) k/uL Lymphocytes # (1.0-4.8) k/uL APTT 40.8 H (22.0-30.0) sec Sodium (137-145) mmol/L BUN (9-20) mg/dL Creatinine (0.66-1.25) mg/dL Glucose (74-99) mg/dL POC Glucose (mg/dL) 159 H (75-99) mg/dL Hemoglobin A1c (4.0-6.0) % Troponin I 4.040 H* (0.000-0.034) ng/mL 03/15/19 03/15/19 03/15/19 Range/Units 05:27 05:27 05:27 WBC 15.2 H (3.8-10.6) k/uL Hgb 12.6 L (13.0-17.5) gm/dL Neutrophils # (1.3-7.7) k/uL Lymphocytes # (1.0-4.8) k/uL APTT 38.0 H (22.0-30.0) sec Sodium 136 L (137-145) mmol/L BUN 24 H (9-20) mg/dL Creatinine 1.77 H (0.66-1.25) mg/dL Glucose 136 H (74-99) mg/dL POC Glucose (mg/dL) (75-99) mg/dL Hemoglobin A1c (4.0-6.0) % Troponin I (0.000-0.034) ng/mL 03/15/19 Range/Units 06:58 WBC (3.8-10.6) k/uL Hgb (13.0-17.5) gm/dL Neutrophils # (1.3-7.7) k/uL Lymphocytes # (1.0-4.8) k/uL APTT (22.0-30.0) sec Sodium (137-145) mmol/L BUN (9-20) mg/dL Creatinine (0.66-1.25) mg/dL Glucose (74-99) mg/dL POC Glucose (mg/dL) 140 H (75-99) mg/dL Hemoglobin A1c (4.0-6.0) % Troponin I (0.000-0.034) ng/mL Microbiology - Last 24 Hours (Table) 03/14/19 12:15 Nasal Screen MRSA/MSSA - Preliminary Nasopharyngeal Swab - Imaging and Cardiology Chest x-ray: image reviewed Assessment and Plan Assessment: 1. Triple-vessel coronary artery disease 2. Acute hypoxic respiratory failure requiring initiation of BiPAP 3. History of coronary artery disease with previous non-STEMI 4. Left internal carotid stenosis 50-69% 5. Hypertension 6. Hyperlipidemia 7. Paroxysmal atrial fibrillation on chronic Eliquis 8. Type 2 diabeteswith current hemoglobin A1c 8.9% 9. Current tobacco dependence 10. COPD 11. Chronic kidney disease stage III with polycystic kidney disease 12. History of bladder cancer 13. Prostate cancer Plan: 1. Continue to maximize medical therapy with aspirin, statin, beta luisa, KILLIAN inhibitor 2. Continue to wean O2 as tolerated. Bronchodilators per pulmonology. Continue IV Lasix. Incentive spirometry ordered and should be encouraged. 3. Preoperative teaching reinforced. Will do teaching with the patient's family when they are here today. 4. Patient needs coronary artery bypass surgery, timing to be determined in light of troponin elevation. Will discuss with Dr. Pop today 5. Continue medical management per primary care service. 6. More recommendations to follow Time with Patient: Greater than 30
--- NOTE | 2019-03-15 09:00 | XR ---
EXAMINATION TYPE: XR chest 1V DATE OF EXAM: 03/15/2019 COMPARISON: 03/14/2019 HISTORY: Shortness of breath TECHNIQUE: Single frontal view of the chest is obtained. FINDINGS: There is slight improved interstitial pulmonary edema however there is more confluence of the bibasilar opacities and small pleural effusions. Cardiomediastinal silhouette is mildly enlarged. No pneumothorax. Diffuse osseous demineralization. IMPRESSION: Evolving congestive heart failure with improved interstitial edema but worsening pleural effusions with bibasilar airspace disease. Pleural effusions remain small.
[2019-03-15] MEDS ORDERED: HEPARIN SODIUM,PORCINE 5,000 UNIT/ML 1 ML VIAL IV STA (09:03)
[2019-03-15] MEDS: FUROSEMIDE 10 MG/ML 4 ML VIAL IV SCH ×2 (09:04→20:59)
[2019-03-15] MEDS: glipiZIDE 10 MG TAB PO SCH ×2 (09:04→17:10)
[2019-03-15] MEDS: METOPROLOL TARTRATE 50 MG TAB PO SCH ×2 (09:04→21:00)
[2019-03-15] MEDS: LINAGLIPTIN 5 MG TABLET PO SCH (09:04)
[2019-03-15] MEDS: ASPIRIN 81 MG PO SCH (09:05)
[2019-03-15] MEDS: FENOFIBRATE 160 MG TAB PO SCH (09:05)
[2019-03-15] MEDS: amLODIPine 10 MG TAB PO SCH (09:05)
[2019-03-15] MEDS: LISINOPRIL 10 MG TAB PO SCH (09:05)
[2019-03-15] MEDS: PANTOPRAZOLE 40 MG TABLET PO SCH (09:05)
[2019-03-15] MEDS ORDERED: Potassium Replacement Protocol 1 EACH MISC MISCELLANE PRN (09:12)
--- NOTE | 2019-03-15 09:18 | PN ---
PROGRESS NOTE PULMONARY/CRITICAL CARE PROGRESS NOTE DATE OF SERVICE: 03/15/2019 This is a 73-year-old gentleman who we saw in consultation yesterday. He was recently in the observation unit and underwent cardiac catheterization. The patient was found to have severe triple-vessel coronary artery disease. Anyway, the patient was there to get a catheterization so he can get preop clearance for prostate surgery. Unfortunately, the patient developed acute respiratory failure with hypoxemia secondary to fluid overload. He does have a previous history of non ST-segment elevation myocardial infarction, severe CAD, hypertension, hyperlipidemia, diabetes mellitus, stage 3 chronic kidney disease, polycystic kidney disease, previous heavy tobacco use, and bladder/prostate cancer. The patient's COPD is likely quite severe. Anyway, the patient is doing much better now in the intensive care unit. He was placed on BiPAP at 12 and 5 and 40%. He had that overnight. Currently, he is on 7 L high flow nasal cannula. He is not getting any additional IV fluids. He is on heparin via weight based protocol. His chest x-ray showed evidence of fluid overload with cardiomegaly, cephalization, fluid in the minor fissure and bilateral pleural effusions. Cardiothoracic surgery has seen the patient. They are deciding whether to take the patient to the operating room for bypass grafting versus medical management versus stenting. That decision has not yet been made. I did speak to Cardiology. PHYSICAL EXAMINATION: Currently, he is resting comfortably. VITAL SIGNS: His current temperature is 97.8, his heart rate 72, respiratory rate 19, blood pressure 143/71, mean 95, saturations are 97% on 7 L nasal cannula high flow. HEENT: Examination is grossly unremarkable. Nasal O2 noted. NECK: Supple. Full range of motion. No adenopathy or thyromegaly. Neck veins are flat. CARDIOVASCULAR: Examination reveals regular rhythm and rate. S1, S2 normal. No S3, S4, or murmur. LUNGS: Reveal bibasilar crackles. Breath sounds equal bilaterally. No rhonchi. No wheezes. Breath sounds equal. ABDOMEN: Soft. Bowel sounds are heard. EXTREMITIES: Are intact. Minimal edema. No cyanosis or clubbing. SKIN: Without rash. NEUROLOGIC: Examination is brief but nonfocal. Chest x-ray still shows a pattern of fluid overload, but it is improved. There is still a bit of fluid in the minor fissure. There is diffuse interstitial edema pattern. There are bilateral pleural effusions. LAB DATA: Lab data is reviewed. His troponins were 4.770 and 4.040. His white count is 15.2, hemoglobin 12.6, hematocrit 39.1, platelet count 191,000. PTT is 38. Sodium 136, potassium 3.5, chloride 103, CO2 is 24. Anion gap is 9. BUN and creatinine were 24 and 1.77. MEDICATIONS: Medications are reviewed. We currently have him on updrafts, Pulmicort and formoterol, as well as Lasix and his usual cardiac medications. ASSESSMENT: 1. Hypoxemic respiratory failure, most likely secondary to acute pulmonary edema with fluid overload. I doubt pneumonia. 2. Probable significant chronic obstructive pulmonary disease, as the patient smoked 55 years at 1 pack a day. He will need pulmonary function testing prior to any anticipated surgery. 3. Postoperative day #2, status post cardiac catheterization showing significant three- vessel coronary artery disease as mentioned above. 4. Prior history of non ST-segment elevation myocardial infarction. 5. History of coronary artery disease. 6. History of hypertension. 7. History of hyperlipidemia. 8. Diabetes mellitus. 9. Chronic kidney disease, stage 3. 10.Polycystic kidney disease. 11.History of bladder/prostate cancer. PLAN: Currently, the patient is doing much better. He is off of BiPAP. He is on nasal O2 at 7 L high flow. His chest x-ray is improved. He continues with Lasix IV push q.8 hours. Surgery to see the patient to decide whether or not he is a candidate for bypass grafting. Additional recommendations and suggestions are forthcoming. Prognosis is guarded. We will continue to follow. Medications, x-rays and labs are all evaluated. The patient will stay here in the ICU pending the decision. Additional recommendations and suggestions forthcoming. Again prognosis is quite guarded. CRITICAL CARE TIME: 33 minutes. MMODL / IJN: [id number] /
[2019-03-15] MEDS: POTASSIUM CHLORIDE ER 20 MEQ TAB.ER PO SCH ×2 (09:30→11:00)
[2019-03-15] MEDS: hydrALAZINE HCL 50 MG TAB PO SCH ×3 (09:32→21:00)
--- NOTE | 2019-03-15 11:06 | ECHOF ---
Referral Reason:Chest pain and cardiomyopathy MEASUREMENTS -------- HEIGHT: 167.6 cm WEIGHT: 74.8 kg BP: 159/88 RVIDd: 3.6 cm (< 3.3) IVSd: 1.3 cm (0.6 - 1.1) LVIDd: 5.1 cm (3.9 - 5.3) LVPWd: 1.0 cm (0.6 - 1.1) IVSs: 1.4 cm LVIDs: 4.1 cm LVPWs: 1.8 cm LA Diam: 3.4 cm (2.7 - 3.8) LAESV Index (A-L): 40.97 ml/m Ao Diam: 3.1 cm (2.0 - 3.7) AV Cusp: 1.0 cm (1.5 - 2.6) MV EXCURSION: 22.451 mm (> 18.000) MV EF SLOPE: 95 mm/s (70 - 150) EPSS: 1.3 cm MV E Irving: 1.04 m/s MV DecT: 145 ms MV A Irving: 0.58 m/s MV E/A Ratio: 1.78 RAP: 15.00 mmHg RVSP: 77.03 mmHg FINDINGS -------- Sinus rhythm. This was a technically difficult study with suboptimal views. The left ventricular size is normal. There is mild concentric left ventricular hypertrophy. Overa ll left ventricular systolic function is moderately impaired with, an EF between 35 - 40 %. The right ventricle is mildly enlarged. LA is severely dilated >40 ml/m2 The right atrium is normal in size. 5 ml of Lumason was utilized for enhancement of images. Interatrial and interventricular septum intact. There is mild to moderate aortic valve sclerosis. The mitral valve leaflets are mildly thickened. Mild mitral annular calcification present. Modera te mitral regurgitation is present. Moderate tricuspid regurgitation present. There is severe pulmonary hypertension. The right ventr icular systolic pressure, as measured by Doppler, is 77.03mmHg. There is no pulmonic regurgitation present. The aortic root size is normal. The inferior vena cava is dilated with poor inspiratory collapse which is consistent with estimated r ight atrial pressure of 15 mmHg. There is no pericardial effusion. CONCLUSIONS -------- 1. Sinus rhythm. 2. This was a technically difficult study with suboptimal views. 3. The left ventricular size is normal. 4. There is mild concentric left ventricular hypertrophy. 5. Overall left ventricular systolic function is moderately impaired with, an EF between 35 - 40 %. 6. The right ventricle is mildly enlarged. 7. LA is severely dilated >40 ml/m2 8. The right atrium is normal in size. 9. 5 ml of Lumason was utilized for enhancement of images. 10. Interatrial and interventricular septum intact. 11. There is mild to moderate aortic valve sclerosis. 12. The mitral valve leaflets are mildly thickened. 13. Mild mitral annular calcification present. 14. Moderate mitral regurgitation is present. 15. Moderate tricuspid regurgitation present. 16. There is severe pulmonary hypertension. 17. The right ventricular systolic pressure, as measured by Doppler, is 77.03mmHg. 18. There is no pulmonic regurgitation present. 19. The aortic root size is normal. 20. The inferior vena cava is dilated with poor inspiratory collapse which is consistent with estimat ed right atrial pressure of 15 mmHg. 21. There is no pericardial effusion. DIRECTOR OF FRONT OFFICE: April Silva RDCS
--- NOTE | 2019-03-15 11:53 | CDI ---
Documentation Clarification Form Date: 03/15/2019 11:40:54 AM From: Airam Alas CCS, CCDS Admit Date: 03/14/2019 11:11:00 AM Patient Name: Irving Camacho Visit Number: [id number] Discharge Date: ATTENTION: The Clinical Documentation Specialists (CDI) and [facility] Coding Staff appreciate your assistance in clarifying documentation. Please respond to the clarification below the line at the bottom and electronically sign. The CDI & [facility] Coding staff will review the response and follow-up if needed. Please note: Queries are made part of the Legal Health Record. If you have any questions, please contact the author of this message via ITS. Dr. Kika Fuentes: CHF is documented in the 03/14 CXR & also the 03/14 cardiology progress note: "IMPRESSION: Acute congestive heart failure, most likely secondary to fluid overload. We will repeat the EKG. Echocardiogram is also ordered History/Risk Factors: CAD, MD, previous angioplasty with stent, DM II, CKD III, Hypertension, COPD, Polycystic kidney disease, Paroxysmal Atrial Fibrillation, Cancer of prostate & bladder and current smoker. Clinical Indicators: Presented on 03/13 for elective outpatient heart catheterization, post cath the patient went into acute respiratory failure and was transferred to the ICU. PO 03/13 88 2Lnc. 03/14: 92 3Lnc, drop to 85 on 3L nc with RR 28 (sob, labored w/accessory use, shallow & irreg); BP 153/75. O2 advanced to 10L high flow, then BiPAP. BNP: not done Echocardiogram Results 03/14: Overall left ventricular systolic function is moderately impaired with, an EF between 35 - 40 %. Chest X Ray 03/14: Findings compatible with congestive failure. Treatment: Transferred to ICU from postop catheterization, respiratory treatments as above, INH Albuterol, IV Lasix, IV Heparin drip. In your professional opinion, can you please clarify the acuity and type of CHF if known? Heart Failure ruled out Heart Failure ruled in: o Systolic Heart Failure: o Other, please specify: Unable to Determine Other, please specify (Last Revision: July 2017) MTDD
[2019-03-15 11:54] LABS: Glucose,Whole Blood 236 mg/dL (75-99)
[2019-03-15] MEDS: ISOSORBIDE MONONITRATE ER 30 MG TAB.ER.24H PO SCH (11:54)
--- NOTE | 2019-03-15 12:29 | PN ---
PROGRESS NOTE This patient underwent cardiac catheterization. Yesterday patient developed heart failure. Did not complain of any chest pain. EKG showed diffuse ST-T depression. The patient's troponin went up to [address]-segment elevation myocardial infarction. The patient is doing, feeling better now. His breathing is improved. Denies any chest pain. Heart rate is 74 per minute, blood pressure is 140/75 mmHg. First and second heart sounds are normal. Lungs reveal few basal rales. Chest x-ray still shows evidence of heart failure. We will decrease the dose of Lasix to 40 mg IV b.i.d. Continue heparin for next 24 hours. Await the recommendation from Surgery. We will recommend to have the patient undergo surgery during the current admission. MMODL / IJN: [id number] /
--- NOTE | 2019-03-15 15:11 | CT ---
EXAMINATION TYPE: CT chest wo con DATE OF EXAM: 03/15/2019 COMPARISON: None HISTORY: Evaluated aorta CT DLP: 344.6 mGycm, Automated exposure control for dose reduction was used. CONTRAST: Performed injected with 0 mL of . TECHNIQUE: Axial images were obtained at 5 mm thick sections. Reconstructed images are reviewed on [employer] computer in the coronal plane. FINDINGS: Portion of the thyroid visualized is normal. No suspicious lung nodules or focal infiltrates are present. Small bilateral pleural effusions are present. Some compressive atelectasis is adjacent. A 1.0 cm pretracheal lymph node is present. Series 201 image 24. Small shotty lymph nodes are withi n the mediastinum. The ascending aorta diameter at the level of the main pulmonary artery is 3.4 cm. The main pulmonary artery diameter at the bifurcation is 2.7 cm. Coronary artery calcifications pre sent. Limited CT sections are obtained through the upper abdomen. Renal cysts are present bilaterally. Left kidney appears somewhat smaller than the right which may be atrophic. Cholelithiasis is noted IMPRESSIONS: 1. 1.0 cm pretracheal lymph node. 2. Small bilateral pleural effusions. 3. Renal cysts left kidney may be atrophic. 4. Cholelithiasis
[2019-03-15 16:59] LABS: Glucose,Whole Blood 243 mg/dL (75-99)
[2019-03-15] MEDS: HEPARIN SOD,PORK IN 0.45% NACL 25,000 UNIT in 0.45% NACL 1 250ML.BAG IV SCH (17:11)
[2019-03-15 20:39] LABS: Glucose,Whole Blood 174 mg/dL (75-99)
[2019-03-15] MEDS: ATORVASTATIN 80 MG TAB PO SCH (20:59)
[2019-03-15] MEDS: ALPRAZolam 0.25 MG TAB PO PRN (21:00)
[2019-03-15 22:29] LABS: Magnesium 1.7 mg/dL (1.6-2.3); Potassium 3.9 mmol/L (3.5-5.1)
[2019-03-15] MEDS: MAGNESIUM SULFATE-D5W PMX 1 GM in DEXTROSE/WATER 1 100ML.BAG IVPB SCH ×2 (22:58→23:47)
[2019-03-15] MEDS ORDERED: POTASSIUM CHLORIDE ER 20 MEQ TAB.ER PO SCH (23:00)
[2019-03-15] MEDS ORDERED: DILTIAZEM 125 MG in SODIUM CHLORIDE 0.9% 100 ML IV SCH (23:30)
[2019-03-16] MEDS: NITROGLYCERIN OINT 1 INCH/GM PACKET TOPICAL SCH ×3 (00:37→12:58)
[2019-03-16] MEDS: ONDANSETRON 4 MG/2 ML VIAL IVP PRN (00:39)
[2019-03-16 04:49] LABS: Basophils % (A) 0 %; Eosinophils # (A) 0.1 k/uL (0-0.7); Eosinophils % (A) 1 %; HCT 37.9 % (39.0-53.0); HGB 12.6 gm/dL (13.0-17.5); Lymphocytes # (A) 0.5 k/uL (1.0-4.8); Lymphocytes % (A) 3 %; MCH 28.7 pg (25.0-35.0); MCHC 33.4 g/dL (31.0-37.0); Mean Platelet Volume 8.2; Monocytes # (A) 0.9 k/uL (0-1.0); Monocytes % (A) 5 %; Neutrophils # (A) 14.4 k/uL (1.3-7.7); Neutrophils % (A) 90 %; Platelet Count 214 k/uL (150-450); RBC 4.41 m/uL (4.30-5.90); RDW 14.8 % (11.5-15.5)
[2019-03-16 05:26] LABS: Calcium 9.3 mg/dL (8.4-10.2); Magnesium 2.1 mg/dL (1.6-2.3); Potassium 4.3 mmol/L (3.5-5.1)
[2019-03-16 06:56] LABS: Glucose,Whole Blood 241 mg/dL (75-99)
[2019-03-16] MEDS: INSULIN ASPART (NovoLOG) 100 UNIT/ML VIAL SQ SCH ×4 (07:15→21:15)
[2019-03-16] MEDS: glipiZIDE 10 MG TAB PO SCH ×2 (07:16→18:20)
[2019-03-16] MEDS: BUDESONIDE 1 MG/2 ML NEBU INHALATION SCH ×2 (07:19→19:28)
[2019-03-16] MEDS: IPRATROPIUM-ALBUTEROL 3 ML NEB INHALATION SCH ×4 (07:19→19:28)
[2019-03-16] MEDS: FORMOTEROL FUMARATE 20 MCG/2 ML NEBU INHALATION SCH ×2 (07:19→19:28)
[2019-03-16] MEDS: PANTOPRAZOLE 40 MG TABLET PO SCH (07:21)
--- NOTE | 2019-03-16 08:05 | P.PN ---
Subjective Progress Note Date: 03/16/19 Principal diagnosis: Triple-vessel coronary artery disease, non-STEMI this admission, acute hypoxic respiratory failure requiring initiation of BiPAP, acute systolic heart failure with EF 25-30%, moderate mitral and tricuspid regurgitation per transthoracic echocardiogram. Previous medical history of coronary artery disease with previous non-STEMI, hypertension, hyperlipidemia, paroxysmal atrial fibrillation on chronic Eliquis for anticoagulation, type 2 diabetes with current hemoglobin A1c 8.9%, left internal carotid artery stenosis 50-69% COPD with current tobacco dependence, chronic kidney disease stage III with polycystic kidney disease, bladder cancer, prostate cancer. Atrial fibrillation with rapid ventricular response. The patient's currently laying in bed in the intensive care unit in no acute distress eating breakfast. He has been on high flow nasal cannula since yesterday morning. Receiving IV Lasix and diuresing nicely. Patient denies any chest pain, states his shortness of breath is significantly better. He did go into atrial fibrillation with rapid ventricular response last night and was placed on IV Cardizem, remains on IV heparin. States he has been able to get up to ambulate to the bathroom without difficulty Objective - Vital Signs Vital signs: Vital Signs Temp 98.2 F 03/16/19 04:00 Pulse 114 H 03/16/19 07:22 Resp 21 03/16/19 07:01 BP 99/80 03/16/19 07:01 Pulse Ox 96 03/16/19 07:22 Intake & Output 03/15/19 03/16/19 03/16/19 18:59 06:59 18:59 Intake Total 859.863 335 5 Output Total 870 740 45 Balance -10.137 -405 -40 Weight 71 kg Intake: IV 75 Sodium Chloride 0.9% 1, 75 000 ml @ 75 mls/hr IV . [id number] [facility] Rx#:[id number] Intake, IV Titration 234.863 235 5 Amount Diltiazem 125 mg In 35 5 Sodium Chloride 0.9% 100 ml @ 5 MG/HR 5 mls/hr IV .Q24H [facility] Rx#:[id number] Heparin Sod,Pork in 0.45% 234.863 NaCl 25,000 unit In 0.45 % NaCl 1 250ml.bag @ 12 UNITS/KG/HR 9.012 mls/hr IV .Q24H [facility] Rx#: [id number] Magnesium Sulfate-D5w Pmx 200 1 gm In Dextrose/Water 1 100ml.bag @ 100 mls/hr IVPB Q1H [facility] Rx#: [id number] Oral 550 100 Output: Urine 870 740 45 Other: Voiding Method Indwelling Catheter Indwelling Catheter - Constitutional General appearance: Present: cooperative, no acute distress - Respiratory Details: Lungs sounds diminished bilaterally. Respirations even, nonlabored. Currently on 8 L high flow nasal cannula with oxygen saturation 95%. Able to achieve 1000 mL on his incentive spirometry. Strong cough. - Cardiovascular Details: S1, S2 present. Irregular rate and rhythm, atrial fibrillation on telemetry. Palpable peripheral pulses bilaterally. No edema present. No calf pain or tenderness noted. SCDs present. - Gastrointestinal Gastrointestinal Comment(s): Abdomen soft, nontender, nondistended. Active bowel sounds present 4 quadrants. Tolerating diet - Genitourinary Genitourinary Comment(s): Kam present draining clear, yellow urine. Output overnight 45-90 mL per hour, 1610 mL in the last 24 hours. - Integumentary Integumentary Comment(s): skin is warm and dry with evidence of good perfusion - Neurologic Neurologic: Present: CNII-XII intact - Musculoskeletal Musculoskeletal: Present: strength equal bilaterally - Psychiatric Psychiatric: Present: A&O x's 3, appropriate affect, intact judgment & insight - Allied health notes Allied health notes reviewed: nursing - Labs CBC & Chem 7: 03/16/19 04:30 03/16/19 04:30 Labs: Abnormal Lab Results - Last 24 Hours (Table) 03/15/19 03/15/19 03/15/19 Range/Units 08:20 11:52 14:42 WBC (3.8-10.6) k/uL Hgb (13.0-17.5) gm/dL Hct (39.0-53.0) % Neutrophils # (1.3-7.7) k/uL Lymphocytes # (1.0-4.8) k/uL APTT (22.0-30.0) sec Sodium (137-145) mmol/L BUN (9-20) mg/dL Creatinine (0.66-1.25) mg/dL Glucose (74-99) mg/dL POC Glucose (mg/dL) 236 H (75-99) mg/dL Troponin I 2.450 H* 1.760 H* (0.000-0.034) ng/mL 03/15/19 03/15/19 03/15/19 Range/Units 14:42 16:57 20:37 WBC (3.8-10.6) k/uL Hgb (13.0-17.5) gm/dL Hct (39.0-53.0) % Neutrophils # (1.3-7.7) k/uL Lymphocytes # (1.0-4.8) k/uL APTT 74.9 H (22.0-30.0) sec Sodium (137-145) mmol/L BUN (9-20) mg/dL Creatinine (0.66-1.25) mg/dL Glucose (74-99) mg/dL POC Glucose (mg/dL) 243 H 174 H (75-99) mg/dL Troponin I (0.000-0.034) ng/mL 03/16/19 03/16/19 03/16/19 Range/Units 04:30 04:30 04:30 WBC 16.0 H (3.8-10.6) k/uL Hgb 12.6 L (13.0-17.5) gm/dL Hct 37.9 L (39.0-53.0) % Neutrophils # 14.4 H (1.3-7.7) k/uL Lymphocytes # 0.5 L (1.0-4.8) k/uL APTT 48.3 H (22.0-30.0) sec Sodium 132 L (137-145) mmol/L BUN 31 H (9-20) mg/dL Creatinine 1.82 H (0.66-1.25) mg/dL Glucose 202 H (74-99) mg/dL POC Glucose (mg/dL) (75-99) mg/dL Troponin I (0.000-0.034) ng/mL 03/16/19 Range/Units 06:55 WBC (3.8-10.6) k/uL Hgb (13.0-17.5) gm/dL Hct (39.0-53.0) % Neutrophils # (1.3-7.7) k/uL Lymphocytes # (1.0-4.8) k/uL APTT (22.0-30.0) sec Sodium (137-145) mmol/L BUN (9-20) mg/dL Creatinine (0.66-1.25) mg/dL Glucose (74-99) mg/dL POC Glucose (mg/dL) 241 H (75-99) mg/dL Troponin I (0.000-0.034) ng/mL Microbiology - Last 24 Hours (Table) 03/14/19 12:15 Nasal Screen MRSA/MSSA - Final Nasopharyngeal Swab 03/14/19 08:48 Blood Culture - Preliminary Blood No Growth after 24 hours - Imaging and Cardiology Chest x-ray: image reviewed CT scan - chest: report reviewed, image reviewed Assessment and Plan Assessment: 1. Triple-vessel coronary artery disease, non-STEMI this admission 2. Acute hypoxic respiratory failure requiring initiation of BiPAP 3. Acute systolic heart failure with EF 25-30% 4. Moderate mitral and tricuspid regurgitation per transthoracic echocardiogram 5. History of coronary artery disease with previous non-STEMI 6. Left internal carotid stenosis 50-69% 7. Hypertension 8. Hyperlipidemia 9. Paroxysmal atrial fibrillation on chronic Eliquis, last dose 03/11/2019 10. Type 2 diabeteswith current hemoglobin A1c 8.9% 11. Current tobacco dependence 12. COPD 13. Chronic kidney disease stage III with polycystic kidney disease 14. History of bladder cancer 15. Prostate cancer Plan: 1. Continue to maximize medical therapy with aspirin, statin, beta luisa, KILLIAN inhibitor. Continue to hold Eliquis 2. Continue to wean O2 as tolerated. Bronchodilators per pulmonology. Continue IV Lasix. Encourage incentive spirometry 3. Preoperative teaching reinforced with the patient and family, all questions answered 4. Computed tomography scan of the chest was completed, results reviewed with Dr. Pop. 5. Patient needs coronary artery bypass surgery plus left atrial appendage ligation, timing to be determined. Patient needs transesophageal echocardiogram to evaluate mitral and tricuspid regurgitation 6. Continue medical management per primary care service. 7. More recommendations to follow Time with Patient: Greater than 30
--- NOTE | 2019-03-16 09:51 | P.PN ---
Subjective Progress Note Date: 03/16/19 Principal diagnosis: Acute hypoxemic respiratory failure secondary to an acute pulmonary edema/fluid volume overload. The patient is seen today 03/16/2019 in follow-up in the intensive care unit. He is currently awake and alert in no acute distress. Breathing a bit easier today as compared to yesterday. He remains on 8 L high flow nasal cannula. No BiPAP required throughout the night. He is continued on IV heparin along with a Cardizem drip at 5 mg per hour. He is currently in sinus rhythm. Denies any chest pain, palpitations lightheadedness or dizziness. No worsening cough or congestion.he is currently in a negative balance.blood culture reveals no growth. White count 16.0. hemoglobin 12.6. Creatinine 1.82. computed tomography scan of the chest revealed small bilateral pleural effusions. 1.0 cm pretracheal lymph node. Renal cysts of the left kidney and cholelithiasis. Objective - Vital Signs Vital signs: Vital Signs Temp 97.9 F 03/16/19 08:00 Pulse 71 03/16/19 08:00 Resp 15 03/16/19 08:00 BP 119/64 03/16/19 08:00 Pulse Ox 98 03/16/19 08:00 Intake & Output 03/15/19 03/16/19 03/16/19 18:59 06:59 18:59 Intake Total 859.863 335 10 Output Total 870 740 95 Balance -10.137 -405 -85 Weight 71 kg Intake: IV 75 Sodium Chloride 0.9% 1, 75 000 ml @ 75 mls/hr IV . [id number] [facility] Rx#:[id number] Intake, IV Titration 234.863 235 10 Amount Diltiazem 125 mg In 35 10 Sodium Chloride 0.9% 100 ml @ 5 MG/HR 5 mls/hr IV .Q24H [facility] Rx#:[id number] Heparin Sod,Pork in 0.45% 234.863 NaCl 25,000 unit In 0.45 % NaCl 1 250ml.bag @ 12 UNITS/KG/HR 9.012 mls/hr IV .Q24H [facility] Rx#: [id number] Magnesium Sulfate-D5w Pmx 200 1 gm In Dextrose/Water 1 100ml.bag @ 100 mls/hr IVPB Q1H [facility] Rx#: [id number] Oral 550 100 Output: Urine 870 740 95 Other: Voiding Method Indwelling Catheter Indwelling Catheter Indwelling Catheter - Exam GENERAL EXAM: Alert, pleasant 73-year-old gentleman, comfortable in no apparent distress.on 8 L high flow nasal cannula. HEAD: Normocephalic. EYES: Normal reaction of pupils, equal size. NOSE: Clear with pink turbinates. THROAT: No erythema or exudates. NECK: No masses, no JVD. CHEST: No chest wall deformity. LUNGS: Equal air entry crackles in the bilateral posterior bases CVS: S1 and S2 normal with no audible murmur, regular rhythm. ABDOMEN: No hepatosplenomegaly, normal bowel sounds, no guarding or rigidity. SPINE: No scoliosis or deformity SKIN: No rashes CENTRAL NERVOUS SYSTEM: No focal deficits, tone is normal in all 4 extremities. EXTREMITIES: There is 1+ peripheral edema. No clubbing, no cyanosis. Peripheral pulses are intact. - Labs CBC & Chem 7: 03/16/19 04:30 03/16/19 04:30 Labs: Abnormal Lab Results - Last 24 Hours (Table) 03/15/19 03/15/19 03/15/19 Range/Units 11:52 14:42 14:42 WBC (3.8-10.6) k/uL Hgb (13.0-17.5) gm/dL Hct (39.0-53.0) % Neutrophils # (1.3-7.7) k/uL Lymphocytes # (1.0-4.8) k/uL APTT 74.9 H (22.0-30.0) sec Sodium (137-145) mmol/L BUN (9-20) mg/dL Creatinine (0.66-1.25) mg/dL Glucose (74-99) mg/dL POC Glucose (mg/dL) 236 H (75-99) mg/dL Troponin I 1.760 H* (0.000-0.034) ng/mL 03/15/19 03/15/19 03/16/19 Range/Units 16:57 20:37 04:30 WBC (3.8-10.6) k/uL Hgb (13.0-17.5) gm/dL Hct (39.0-53.0) % Neutrophils # (1.3-7.7) k/uL Lymphocytes # (1.0-4.8) k/uL APTT 48.3 H (22.0-30.0) sec Sodium (137-145) mmol/L BUN (9-20) mg/dL Creatinine (0.66-1.25) mg/dL Glucose (74-99) mg/dL POC Glucose (mg/dL) 243 H 174 H (75-99) mg/dL Troponin I (0.000-0.034) ng/mL 03/16/19 03/16/19 03/16/19 Range/Units 04:30 04:30 06:55 WBC 16.0 H (3.8-10.6) k/uL Hgb 12.6 L (13.0-17.5) gm/dL Hct 37.9 L (39.0-53.0) % Neutrophils # 14.4 H (1.3-7.7) k/uL Lymphocytes # 0.5 L (1.0-4.8) k/uL APTT (22.0-30.0) sec Sodium 132 L (137-145) mmol/L BUN 31 H (9-20) mg/dL Creatinine 1.82 H (0.66-1.25) mg/dL Glucose 202 H (74-99) mg/dL POC Glucose (mg/dL) 241 H (75-99) mg/dL Troponin I (0.000-0.034) ng/mL Microbiology - Last 24 Hours (Table) 03/14/19 12:15 Nasal Screen MRSA/MSSA - Final Nasopharyngeal Swab 03/14/19 08:48 Blood Culture - Preliminary Blood No Growth after 24 hours Assessment and Plan Assessment: #1 Acute hypoxemic respiratory failure secondary to an acute exacerbation of systolic congestive heart failure with ejection fraction 35-40%. #2 Severe pulmonary hypertension with an RVSP of 77 mmHg. #3 Chronic and ongoing tobacco dependence. #4 Recent non-ST segment myocardial infarction with significant triple-vessel coronary artery disease. #5 Hypertension. #6 Hyperlipidemia. #7 Diabetes mellitus. #8 Chronic renal failure. #9 History of prostate cancer. Plan: The patient was seen and evaluated by Dr. Joy. He is currently stable from the pulmonary and critical care standpoint. Spirometry pending. The plan is for cardiovascular revascularization early next week. Remains on heparin drip. He remains on a Cardizem drip. He is again educated regarding the importance of complete smoking cessation. We'll titrate down the FiO2 as tolerated. We will continue to follow and make further recommendations based on his clinical status. I, the cosigning physician, performed a history & physical examination of the patient. Lungs sounds with bilateral crackles in the bases. Maintaining good O2 saturations in the 90s on 8 L high flow nasal cannula. I discussed the assessment and plan of care with my nurse practitioner, Michelle Santoro. I attest to the above note as dictated by her.
[2019-03-16] MEDS: ASPIRIN 81 MG PO SCH (10:12)
[2019-03-16] MEDS: FENOFIBRATE 160 MG TAB PO SCH (10:12)
[2019-03-16] MEDS: hydrALAZINE HCL 50 MG TAB PO SCH ×3 (10:13→21:14)
[2019-03-16] MEDS: FUROSEMIDE 10 MG/ML 4 ML VIAL IV SCH ×2 (10:13→19:39)
[2019-03-16] MEDS: ISOSORBIDE MONONITRATE ER 30 MG TAB.ER.24H PO SCH (10:14)
[2019-03-16] MEDS: LINAGLIPTIN 5 MG TABLET PO SCH (10:14)
[2019-03-16] MEDS: LISINOPRIL 10 MG TAB PO SCH (10:15)
[2019-03-16] MEDS: METOPROLOL TARTRATE 50 MG TAB PO SCH ×2 (10:15→19:39)
[2019-03-16 11:47] LABS: Glucose,Whole Blood 210 mg/dL (75-99)
[2019-03-16] MEDS ORDERED: DEXTROSE 5% IN WATER 100 ML with AMIODARONE 150 MG IV ONE ×2 (13:00→14:30)
[2019-03-16] MEDS ORDERED: AMIODARONE 360 MG in DEXTROSE 5% IN WATER 200 ML IV ONE ×4 (13:10→14:40)
--- NOTE | 2019-03-16 13:43 | XR ---
EXAMINATION TYPE: XR chest 1V portable DATE OF EXAM: 03/16/2019 HISTORY: Shortness of breath. REFERENCE: Previous study dated 03/15/2019. FINDINGS: The heart is enlarged. Vascular congestion and interstitial change has improved. There are bilateral effusions. There is bibasilar airspace disease. IMPRESSION: 1. RESOLVING CHANGES OF CONGESTIVE HEART FAILURE. 2. BILATERAL EFFUSIONS. 3. BIBASILAR AIRSPACE DISEASE.
--- NOTE | 2019-03-16 14:12 | PN ---
PROGRESS NOTE This patient underwent cardiac catheterization and was found to have significant triple- vessel disease and has sustained a non-Q-wave myocardial infarction and congestive cardiac failure. Patient had an a episode of atrial fibrillation last night. He has converted to the normal sinus rhythm. He is lying comfortably without any respiratory distress. Heart rate now is 74 per minute, blood pressure is 125/69 mmHg. First and second heart sounds are heard. Lungs are clear to auscultation and percussion. Chest x-ray still shows evidence of congestive cardiac failure. The patient is currently getting IV Lasix. PLAN: We will load the patient with IV amiodarone to prevent the recurrent episodes of atrial fibrillation in the perioperative and postoperative. Continue IV heparin. Hopefully patient would undergo the surgery next week. MMODL / IJN: [id number] /
[2019-03-16] MEDS: HEPARIN SOD,PORK IN 0.45% NACL 25,000 UNIT in 0.45% NACL 1 250ML.BAG IV SCH (16:29)
[2019-03-16 18:14] LABS: Glucose,Whole Blood 206 mg/dL (75-99)
[2019-03-16] MEDS: ATORVASTATIN 80 MG TAB PO SCH (19:39)
[2019-03-16] MEDS: AMIODARONE 300 MG in DEXTROSE 5% IN WATER 250 ML IV SCH ×2 (20:26)
[2019-03-16 20:44] LABS: Glucose,Whole Blood 143 mg/dL (75-99)
[2019-03-16] MEDS: ALPRAZolam 0.25 MG TAB PO PRN (21:14)
[2019-03-17 04:47] LABS: Basophils % (A) 0 %; Eosinophils # (A) 0.2 k/uL (0-0.7); Eosinophils % (A) 1 %; HCT 38.4 % (39.0-53.0); HGB 12.4 gm/dL (13.0-17.5); Lymphocytes # (A) 0.5 k/uL (1.0-4.8); Lymphocytes % (A) 3 %; MCH 28.1 pg (25.0-35.0); MCHC 32.4 g/dL (31.0-37.0); MCV 86.8 fL (80.0-100.0); Mean Platelet Volume 8.2; Monocytes # (A) 0.9 k/uL (0-1.0); Monocytes % (A) 7 %; Neutrophils # (A) 12.3 k/uL (1.3-7.7); Neutrophils % (A) 88 %; Platelet Count 190 k/uL (150-450); RBC 4.43 m/uL (4.30-5.90); RDW 14.8 % (11.5-15.5)
[2019-03-17 05:30] LABS: Calcium 9.1 mg/dL (8.4-10.2); Potassium 4.1 mmol/L (3.5-5.1)
--- NOTE | 2019-03-17 06:11 | XR ---
EXAMINATION TYPE: XR chest 1V portable DATE OF EXAM: 03/17/2019 HISTORY: Shortness of breath. REFERENCE: Previous study dated 03/16/2019. FINDINGS: There continues to be mild vascular congestion without markus edema. Heart is mildly enlarge d. There are bilateral effusions. Bibasilar airspace disease. IMPRESSION: NO SIGNIFICANT CHANGE IN THE APPEARANCE THE LUNGS.
[2019-03-17] MEDS: AMIODARONE 300 MG in DEXTROSE 5% IN WATER 250 ML IV SCH ×2 (06:34)
[2019-03-17 06:47] LABS: Glucose,Whole Blood 127 mg/dL (75-99)
[2019-03-17] MEDS: INSULIN ASPART (NovoLOG) 100 UNIT/ML VIAL SQ SCH ×4 (06:48→21:32)
[2019-03-17] MEDS: PANTOPRAZOLE 40 MG TABLET PO SCH (06:49)
[2019-03-17] MEDS: glipiZIDE 10 MG TAB PO SCH ×2 (06:49→17:33)
[2019-03-17] MEDS: FORMOTEROL FUMARATE 20 MCG/2 ML NEBU INHALATION SCH ×2 (07:13→19:11)
[2019-03-17] MEDS: BUDESONIDE 1 MG/2 ML NEBU INHALATION SCH ×2 (07:13→19:11)
[2019-03-17] MEDS: IPRATROPIUM-ALBUTEROL 3 ML NEB INHALATION SCH ×4 (07:13→19:11)
[2019-03-17] MEDS ORDERED: MAGNESIUM HYDROXIDE 2,400 MG/10 ML CUP PO PRN (07:23)
[2019-03-17] MEDS ORDERED: SENNOSIDES-DOCUSATE SODIUM 1 EACH TAB PO PRN (07:23)
--- NOTE | 2019-03-17 07:59 | P.PN ---
Subjective Progress Note Date: 03/17/19 Principal diagnosis: Triple-vessel coronary artery disease, non-STEMI this admission, acute hypoxic respiratory failure requiring initiation of BiPAP, acute systolic heart failure with EF 25-30%, moderate mitral and tricuspid regurgitation per transthoracic echocardiogram. Previous medical history of coronary artery disease with previous non-STEMI, hypertension, hyperlipidemia, paroxysmal atrial fibrillation on chronic Eliquis for anticoagulation, type 2 diabetes with current hemoglobin A1c 8.9%, left internal carotid artery stenosis 50-69% COPD with FEV1 52% of predicted, current tobacco dependence, chronic kidney disease stage III with polycystic kidney disease, bladder cancer, prostate cancer. Atrial fibrillation with rapid ventricular response. The patient's currently laying in bed in the intensive care unit in no acute distress. He has remained on high flow nasal cannula and continues to be weaned down. Receiving IV Lasix and diuresing nicely. Patient denies any chest pain, states his shortness of breath is significantly better. Converted to normal sin us rhythm yesterday, Cardizem IV discontinued and IV amiodarone initiated, remains on IV heparin. States he has remained on bedrest. Objective - Vital Signs Vital signs: Vital Signs Temp 98.4 F 03/17/19 04:00 Pulse 74 03/17/19 07:47 Resp 21 03/17/19 07:00 BP 126/69 03/17/19 07:00 Pulse Ox 94 L 03/17/19 07:16 Intake & Output 03/16/19 03/17/19 03/17/19 18:59 06:59 18:59 Intake Total 886.945 370 Output Total 935 930 Balance -48.055 -560 Weight 73.2 kg Intake: Intake, IV Titration 386.945 250 Amount Amiodarone 300 mg In 250 Dextrose 5% in Water 250 ml @ 0.5 MG/MIN 25 mls/hr IV .Q10H [facility] Rx#: [id number] Amiodarone 360 mg In 4.445 Dextrose 5% in Water 200 ml @ 1 MG/MIN 33.333 mls/ hr IV .Q6H [facility] Rx#: [id number] Dextrose 5% in Water 100 100 ml @ 618 mls/hr IV .Q10M [facility] with Amiodarone 150 mg Rx#:[id number] Diltiazem 125 mg In 32.5 Sodium Chloride 0.9% 100 ml @ 5 MG/HR 5 mls/hr IV .Q24H [facility] Rx#:[id number] Heparin Sod,Pork in 0.45% 250 NaCl 25,000 unit In 0.45 % NaCl 1 250ml.bag @ 12 UNITS/KG/HR 9.012 mls/hr IV .Q24H [facility] Rx#: [id number] Oral 500 120 Output: Urine 935 930 Other: Voiding Method Indwelling Catheter Indwelling Catheter - Constitutional General appearance: Present: cooperative, no acute distress - Respiratory Details: Lungs sounds diminished bilaterally. Respirations even, nonlabored. Currently on 5 L high flow nasal cannula with oxygen saturation 96%. Able to achieve 1000 mL on his incentive spirometry. Strong cough. - Cardiovascular Details: S1, S2 present. Regular rate and rhythm, normal sinus rhythm on telemetry. Palpable peripheral pulses bilaterally. No edema present. No calf pain or ten derness noted. SCDs present. - Gastrointestinal Gastrointestinal Comment(s): Abdomen soft, nontender, nondistended. Active bowel sounds present 4 quadrants. Tolerating diet. Positive flatus, negative bowel movement since admission - Genitourinary Genitourinary Comment(s): Kam present draining clear, yellow urine. Output overnight 70-90 mL per hour, 1815 mL in the last 24 hours. - Integumentary Integumentary Comment(s): skin is warm and dry with evidence of good perfusion - Neurologic Neurologic: Present: CNII-XII intact - Musculoskeletal Musculoskeletal: Present: strength equal bilaterally - Psychiatric Psychiatric: Present: A&O x's 3, appropriate affect, intact judgment & insight - Allied health notes Allied health notes reviewed: nursing - Labs CBC & Chem 7: 03/17/19 04:33 03/17/19 04:33 Labs: Abnormal Lab Results - Last 24 Hours (Table) 03/16/19 03/16/19 03/16/19 Range/Units 11:45 18:12 20:42 WBC (3.8-10.6) k/uL Hgb (13.0-17.5) gm/dL Hct (39.0-53.0) % Neutrophils # (1.3-7.7) k/uL Lymphocytes # (1.0-4.8) k/uL APTT (22.0-30.0) sec Sodium (137-145) mmol/L BUN (9-20) mg/dL Creatinine (0.66-1.25) mg/dL Glucose (74-99) mg/dL POC Glucose (mg/dL) 210 H 206 H 143 H (75-99) mg/dL 03/17/19 03/17/19 03/17/19 Range/Units 04:33 04:33 04:33 WBC 14.0 H (3.8-10.6) k/uL Hgb 12.4 L (13.0-17.5) gm/dL Hct 38.4 L (39.0-53.0) % Neutrophils # 12.3 H (1.3-7.7) k/uL Lymphocytes # 0.5 L (1.0-4.8) k/uL APTT 48.0 H (22.0-30.0) sec Sodium 132 L (137-145) mmol/L BUN 34 H (9-20) mg/dL Creatinine 1.87 H (0.66-1.25) mg/dL Glucose 125 H (74-99) mg/dL POC Glucose (mg/dL) (75-99) mg/dL 03/17/19 Range/Units 06:46 WBC (3.8-10.6) k/uL Hgb (13.0-17.5) gm/dL Hct (39.0-53.0) % Neutrophils # (1.3-7.7) k/uL Lymphocytes # (1.0-4.8) k/uL APTT (22.0-30.0) sec Sodium (137-145) mmol/L BUN (9-20) mg/dL Creatinine (0.66-1.25) mg/dL Glucose (74-99) mg/dL POC Glucose (mg/dL) 127 H (75-99) mg/dL Microbiology - Last 24 Hours (Table) 03/14/19 08:48 Blood Culture - Preliminary Blood No Growth after 48 hours - Imaging and Cardiology Chest x-ray: report reviewed, image reviewed Assessment and Plan Assessment: 1. Triple-vessel coronary artery disease, non-STEMI this admission 2. Acute hypoxic respiratory failure requiring initiation of BiPAP 3. Acute systolic heart failure with EF 25-30% 4. Moderate mitral and tricuspid regurgitation per transthoracic echocardiogram 5. History of coronary artery disease with previous non-STEMI 6. Left internal carotid stenosis 50-69% 7. Hypertension 8. Hyperlipidemia 9. Paroxysmal atrial fibrillation on chronic Eliquis, last dose 03/11/2019 10. Type 2 diabeteswith current hemoglobin A1c 8.9% 11. Current tobacco dependence 12. COPD with FEV1 52% of predicted 13. Chronic kidney disease stage III with polycystic kidney disease 14. History of bladder cancer 15. Prostate cancer Plan: 1. Continue to maximize medical therapy with aspirin, statin, beta luisa, KILLIAN inhibitor. Continue to hold Eliquis 2. Continue to wean O2 as tolerated. Bronchodilators per pulmonology. Continue IV Lasix. Encourage incentive spirometry 3. Preoperative teaching reinforced with the patient and family, all questions answered 4. Computed tomography scan of the chest was completed, results reviewed with Dr. Pop. 5. Patient needs coronary artery bypass surgery plus left atrial appendage ligation, timing to be determined. Patient needs transesophageal echocardiogram to evaluate mitral and tricuspid regurgitation, will be NPO after midnight for IAN tomorrow 6. Continue medical management per primary care service. 7. More recommendations to follow Time with Patient: Greater than 30
[2019-03-17] MEDS ORDERED: NICOTINE 14MG/24HR PATCH TRANSDERM STA (08:14)
--- NOTE | 2019-03-17 08:14 | P.PN ---
Subjective Progress Note Date: 03/17/19 Principal diagnosis: Acute hypoxemic respiratory failure secondary to an acute pulmonary edema/fluid volume overload. The patient is seen today 03/16/2019 in follow-up in the intensive care unit. He is currently awake and alert in no acute distress. Breathing a bit easier today as compared to yesterday. He remains on 8 L high flow nasal cannula. No BiPAP required throughout the night. He is continued on IV heparin along with a Cardizem drip at 5 mg per hour. He is currently in sinus rhythm. Denies any chest pain, palpitations lightheadedness or dizziness. No worsening cough or congestion.he is currently in a negative balance.blood culture reveals no growth. White count 16.0. hemoglobin 12.6. Creatinine 1.82. computed tomography scan of the chest revealed small bilateral pleural effusions. 1.0 cm pretracheal lymph node. Renal cysts of the left kidney and cholelithiasis. The patient is seen today 03/17/2018 in follow-up in the intensive care unit. He is awake and alert in no acute distress. He's well last night. Did not require BiPAP. No worsening shortness of breath, cough or congestion. No chest pain, palpitations lightheadedness or dizziness. Currently maintaining O2 saturations in the 90s on 5 L high flow nasal cannula.. 0.9 normal saline at KVO. Heparin per weight-based protocol. Amiodarone at 0.5 mg/m. Remains in sinus rhythm. Hemodynamically stable. Blood culture reveals no growth. White count 14.0. Hemoglobin 12.4. Platelet count 190,000. Sodium 132. Potassium 4.1. Creatinine 1.87. Continued on IV Lasix 40 mg every 12 hours. Currently in a negative balance. He remains on DuoNeb inhalations and Pulmicort and Perf oromist inhalations. Objective - Vital Signs Vital signs: Vital Signs Temp 98.4 F 03/17/19 04:00 Pulse 74 03/17/19 07:47 Resp 21 03/17/19 07:00 BP 126/69 03/17/19 07:00 Pulse Ox 94 L 03/17/19 07:16 Intake & Output 03/16/19 03/17/19 03/17/19 18:59 06:59 18:59 Intake Total 886.945 370 Output Total 935 930 Balance -48.055 -560 Weight 73.2 kg Intake: Intake, IV Titration 386.945 250 Amount Amiodarone 300 mg In 250 Dextrose 5% in Water 250 ml @ 0.5 MG/MIN 25 mls/hr IV .Q10H [facility] Rx#: [id number] Amiodarone 360 mg In 4.445 Dextrose 5% in Water 200 ml @ 1 MG/MIN 33.333 mls/ hr IV .Q6H [facility] Rx#: [id number] Dextrose 5% in Water 100 100 ml @ 618 mls/hr IV .Q10M [facility] with Amiodarone 150 mg Rx#:[id number] Diltiazem 125 mg In 32.5 Sodium Chloride 0.9% 100 ml @ 5 MG/HR 5 mls/hr IV .Q24H [facility] Rx#:[id number] Heparin Sod,Pork in 0.45% 250 NaCl 25,000 unit In 0.45 % NaCl 1 250ml.bag @ 12 UNITS/KG/HR 9.012 mls/hr IV .Q24H [facility] Rx#: [id number] Oral 500 120 Output: Urine 935 930 Other: Voiding Method Indwelling Catheter Indwelling Catheter - Exam GENERAL EXAM: Alert, pleasant 73-year-old gentleman, comfortable in no apparent distress. On 5 L high flow nasal cannula. HEAD: Normocephalic. EYES: Normal reaction of pupils, equal size. NOSE: Clear with pink turbinates. THROAT: No erythema or exudates. NECK: No masses, no JVD. CHEST: No chest wall deformity. LUNGS: Equal air entry crackles in the bilateral posterior bases CVS: S1 and S2 normal with no audible murmur, regular rhythm. ABDOMEN: No hepatosplenomegaly, normal bowel sounds, no guarding or rigidity. SPINE: No scoliosis or deformity SKIN: No rashes CENTRAL NERVOUS SYSTEM: No focal deficits, tone is normal in all 4 extremities. EXTREMITIES: There is 1+ peripheral edema. No clubbing, no cyanosis. Peripheral pulses are intact. - Labs CBC & Chem 7: 03/17/19 04:33 03/17/19 04:33 Labs: Abnormal Lab Results - Last 24 Hours (Table) 03/16/19 03/16/19 03/16/19 Range/Units 11:45 18:12 20:42 WBC (3.8-10.6) k/uL Hgb (13.0-17.5) gm/dL Hct (39.0-53.0) % Neutrophils # (1.3-7.7) k/uL Lymphocytes # (1.0-4.8) k/uL APTT (22.0-30.0) sec Sodium (137-145) mmol/L BUN (9-20) mg/dL Creatinine (0.66-1.25) mg/dL Glucose (74-99) mg/dL POC Glucose (mg/dL) 210 H 206 H 143 H (75-99) mg/dL 03/17/19 03/17/19 03/17/19 Range/Units 04:33 04:33 04:33 WBC 14.0 H (3.8-10.6) k/uL Hgb 12.4 L (13.0-17.5) gm/dL Hct 38.4 L (39.0-53.0) % Neutrophils # 12.3 H (1.3-7.7) k/uL Lymphocytes # 0.5 L (1.0-4.8) k/uL APTT 48.0 H (22.0-30.0) sec Sodium 132 L (137-145) mmol/L BUN 34 H (9-20) mg/dL Creatinine 1.87 H (0.66-1.25) mg/dL Glucose 125 H (74-99) mg/dL POC Glucose (mg/dL) (75-99) mg/dL 03/17/19 Range/Units 06:46 WBC (3.8-10.6) k/uL Hgb (13.0-17.5) gm/dL Hct (39.0-53.0) % Neutrophils # (1.3-7.7) k/uL Lymphocytes # (1.0-4.8) k/uL APTT (22.0-30.0) sec Sodium (137-145) mmol/L BUN (9-20) mg/dL Creatinine (0.66-1.25) mg/dL Glucose (74-99) mg/dL POC Glucose (mg/dL) 127 H (75-99) mg/dL Microbiology - Last 24 Hours (Table) 03/14/19 08:48 Blood Culture - Preliminary Blood No Growth after 48 hours Assessment and Plan Assessment: #1 Acute hypoxemic respiratory failure secondary to an acute exacerbation of systolic congestive heart failure with ejection fraction 35-40%. Currently on 5 L high flow nasal cannula. #2 Severe pulmonary hypertension with an RVSP of 77 mmHg. #3 Chronic and ongoing tobacco dependence. #4 Recent non-ST segment myocardial infarction with significant triple-vessel coronary artery disease. #5 Chronic obstructive pulmonary disease with FEV1 value of 52% #6 Hyperlipidemia. #7 Diabetes mellitus. #8 Chronic renal failure. #9 History of prostate cancer. #10 Hypertension Plan: The patient was seen and evaluated by Dr. Joy. He is currently stable from the pulmonary and critical care standpoint. The patient is at low increased operative risk for cardiac vascular revascularization due to his COPD with FEV1 value 52% of predicted. The plan is for cardiovascular revascularization early next week. Remains on a heparin drip. He remains on a amiodarone drip. Currently in sinus rhythm. He is again educated regarding the importance of complete smoking cessation. NicoDerm patch is applied. We'll titrate down the FiO2 as tolerated. Continue bronchodilators. We will continue to follow and make further recommendations based on his clinical status. I, the cosigning physician, performed a history & physical examination of the patient. Lungs sounds with bilateral crackles in the bases. Maintaining good O2 saturations in the 90s on 5 L high flow nasal cannula. I discussed the assessment and plan of care with my nurse practitioner, Michelle Santoro. I attest to the above note as dictated by her.
[2019-03-17] MEDS: FUROSEMIDE 10 MG/ML 4 ML VIAL IV SCH (08:26)
[2019-03-17] MEDS: LISINOPRIL 10 MG TAB PO SCH ×2 (08:27→08:30)
[2019-03-17] MEDS: hydrALAZINE HCL 50 MG TAB PO SCH ×3 (08:29→21:32)
[2019-03-17] MEDS: ISOSORBIDE MONONITRATE ER 30 MG TAB.ER.24H PO SCH (08:30)
[2019-03-17] MEDS: ASPIRIN 81 MG PO SCH (08:30)
[2019-03-17] MEDS: FENOFIBRATE 160 MG TAB PO SCH (08:31)
[2019-03-17] MEDS: LINAGLIPTIN 5 MG TABLET PO SCH (08:31)
[2019-03-17] MEDS: METOPROLOL TARTRATE 50 MG TAB PO SCH ×2 (08:31→21:32)
[2019-03-17 11:21] LABS: Glucose,Whole Blood 146 mg/dL (75-99)
--- NOTE | 2019-03-17 13:08 | PN ---
PROGRESS NOTE This patient is status post non ST-segment elevation myocardial infarction and congestive heart failure, which is improving. Patient is lying comfortably in bed. He remains in normal sinus rhythm. He tolerated amiodarone well. This patient has on a transthoracic echocardiogram, moderate degree of mitral regurgitation. He will be evaluated by transesophageal echocardiogram tomorrow. Chest x-ray shows possibly some right pleural effusion. Because of the creatinine is increasing to 1.87, will DC IV Lasix and put him on Lasix 40 mg p.o. daily. We will DC heparin at 9 o'clock tomorrow and do IAN tomorrow at 11 o'clock. MMODL / IJN: [id number] /
[2019-03-17] MEDS: HEPARIN SOD,PORK IN 0.45% NACL 25,000 UNIT in 0.45% NACL 1 250ML.BAG IV SCH (15:24)
[2019-03-17] MEDS: AMIODARONE 200 MG TAB PO SCH ×2 (15:59→21:32)
[2019-03-17 16:31] LABS: Glucose,Whole Blood 213 mg/dL (75-99)
[2019-03-17 21:22] LABS: Glucose,Whole Blood 189 mg/dL (75-99)
[2019-03-17] MEDS: ATORVASTATIN 80 MG TAB PO SCH (21:32)
[2019-03-17] MEDS: ALPRAZolam 0.25 MG TAB PO PRN (21:35)
[2019-03-18 04:50] LABS: HCT 40.7 % (39.0-53.0); HGB 13.4 gm/dL (13.0-17.5); MCH 28.5 pg (25.0-35.0); MCV 86.3 fL (80.0-100.0); Mean Platelet Volume 8.2; Platelet Count 204 k/uL (150-450); RBC 4.71 m/uL (4.30-5.90); RDW 14.8 % (11.5-15.5)
[2019-03-18 05:23] LABS: Calcium 9.1 mg/dL (8.4-10.2); Magnesium 1.9 mg/dL (1.6-2.3)
[2019-03-18] MEDS ORDERED: HEPARIN SODIUM,PORCINE 5,000 UNIT/ML 1 ML VIAL IV PRN ×3 (05:33→12:08)
[2019-03-18 06:45] LABS: Glucose,Whole Blood 250 mg/dL (75-99)
[2019-03-18] MEDS: INSULIN ASPART (NovoLOG) 100 UNIT/ML VIAL SQ SCH ×4 (06:46→20:39)
[2019-03-18] MEDS: glipiZIDE 10 MG TAB PO SCH ×2 (06:46→17:08)
[2019-03-18] MEDS: PANTOPRAZOLE 40 MG TABLET PO SCH (06:46)
[2019-03-18] MEDS: ASPIRIN 81 MG PO SCH (07:46)
[2019-03-18] MEDS: ISOSORBIDE MONONITRATE ER 30 MG TAB.ER.24H PO SCH (07:46)
[2019-03-18] MEDS: AMIODARONE 200 MG TAB PO SCH (07:46)
[2019-03-18] MEDS: hydrALAZINE HCL 50 MG TAB PO SCH ×3 (07:46→20:39)
[2019-03-18] MEDS: FENOFIBRATE 160 MG TAB PO SCH (07:46)
[2019-03-18] MEDS: LISINOPRIL 10 MG TAB PO SCH (07:46)
--- NOTE | 2019-03-18 07:46 | P.PN ---
Subjective Progress Note Date: 03/18/19 Principal diagnosis: Triple-vessel coronary artery disease, non-STEMI this admission, acute hypoxic respiratory failure requiring initiation of BiPAP, acute systolic heart failure with EF 25-30%, moderate mitral and tricuspid regurgitation per transthoracic echocardiogram. Previous medical history of coronary artery disease with previous non-STEMI, hypertension, hyperlipidemia, paroxysmal atrial fibrillation on chronic Eliquis for anticoagulation, type 2 diabetes with current hemoglobin A1c 8.9%, left internal carotid artery stenosis 50-69% COPD with FEV1 52% of predicted, current tobacco dependence, chronic kidney disease stage III with polycystic kidney disease, bladder cancer, prostate cancer. Atrial fibrillation with rapid ventricular response. The patient's currently laying in bed in the intensive care unit in no acute distress. He has remained on 5 L high flow nasal cannula and continues to be weaned down. Lasix switched to oral yesterday. Patient denies any chest pain, shortness of breath. Remains in normal sinus rhythm, continues on oral amiodarone, remains on IV heparin. Plan is for transesophageal echocardiogram this morning. There is significant concern patient is not eating, patient states the food just doesn't taste good and his stomach is not tolerating well. Was given supplemental shake yesterday, patient states it did not sit well with him. He does complain of nausea but has not asked for anti-emetics. Objective - Vital Signs Vital signs: Vital Signs Temp 98.9 F 03/18/19 04:00 Pulse 90 03/18/19 07:00 Resp 20 03/18/19 07:00 BP 151/77 03/18/19 07:00 Pulse Ox 94 L 03/18/19 07:00 Intake & Output 03/17/19 03/18/19 03/18/19 18:59 06:59 18:59 Intake Total 425 392.63 20 Output Total 1085 930 30 Balance -660 -537.37 -10 Weight 69.7 kg Intake: IV 220 20 .9 220 20 Intake, IV Titration 250 172.63 Amount Heparin Sod,Pork in 0.45% 250 172.63 NaCl 25,000 unit In 0.45 % NaCl 1 250ml.bag @ 12 UNITS/KG/HR 9.012 mls/hr IV .Q24H [facility] Rx#: [id number] Oral 175 Output: Urine 1085 930 30 Other: Voiding Method Indwelling Catheter Indwelling Catheter # Bowel Movements 1 - Constitutional General appearance: Present: cooperative, no acute distress - Respiratory Details: Lungs sounds diminished bilaterally. Respirations even, nonlabored. Currently on 5 L high flow nasal cannula with oxygen saturation 95%. Able to achieve 1000 mL on his incentive spirometry. Strong cough. - Cardiovascular Details: S1, S2 present. Regular rate and rhythm, normal sinus rhythm on telemetry. Palpable peripheral pulses bilaterally. No edema present. No calf pain or tenderness noted. SCDs present. - Gastrointestinal Gastrointestinal Comment(s): Abdomen soft, nontender, nondistended. Active bowel sounds present 4 quadrants. Currently nothing by mouth for IAN. Positive bowel movement this morning. - Genitourinary Genitourinary Comment(s): Kam present draining clear, yellow urine. Output overnight 40-85 mL per hour, 1980 mL in the last 24 hours. - Integumentary Integumentary Comment(s): Skin is warm and dry with evidence of good perfusion - Neurologic Neurologic: Present: CNII-XII intact - Musculoskeletal Musculoskeletal: Present: strength equal bilaterally - Psychiatric Psychiatric Comment(s): flat affect Psychiatric: Present: A&O x's 3 - Allied health notes Allied health notes reviewed: nursing - Labs CBC & Chem 7: 03/18/19 04:38 03/18/19 04:38 Labs: Abnormal Lab Results - Last 24 Hours (Table) 03/17/19 03/17/19 03/17/19 Range/Units 11:19 16:29 21:20 WBC (3.8-10.6) k/uL APTT (22.0-30.0) sec Sodium (137-145) mmol/L Chloride (98-107) mmol/L BUN (9-20) mg/dL Creatinine (0.66-1.25) mg/dL Glucose (74-99) mg/dL POC Glucose (mg/dL) 146 H 213 H 189 H (75-99) mg/dL 03/18/19 03/18/19 03/18/19 Range/Units 04:38 04:38 04:38 WBC 15.0 H (3.8-10.6) k/uL APTT 39.4 H (22.0-30.0) sec Sodium 133 L (137-145) mmol/L Chloride 97 L (98-107) mmol/L BUN 35 H (9-20) mg/dL Creatinine 1.74 H (0.66-1.25) mg/dL Glucose 213 H (74-99) mg/dL POC Glucose (mg/dL) (75-99) mg/dL 03/18/19 Range/Units 06:43 WBC (3.8-10.6) k/uL APTT (22.0-30.0) sec Sodium (137-145) mmol/L Chloride (98-107) mmol/L BUN (9-20) mg/dL Creatinine (0.66-1.25) mg/dL Glucose (74-99) mg/dL POC Glucose (mg/dL) 250 H (75-99) mg/dL Microbiology - Last 24 Hours (Table) 03/14/19 08:48 Blood Culture - Preliminary Blood No Growth after 72 hours Assessment and Plan Assessment: 1. Triple-vessel coronary artery disease, non-STEMI this admission 2. Acute hypoxic respiratory failure requiring initiation of BiPAP 3. Acute systolic heart failure with EF 25-30% 4. Moderate mitral and tricuspid regurgitation per transthoracic echocardiogram 5. History of coronary artery disease with previous non-STEMI 6. Left internal carotid stenosis 50-69% 7. Hypertension 8. Hyperlipidemia 9. Paroxysmal atrial fibrillation on chronic Eliquis, last dose 03/11/2019 10. Type 2 diabeteswith current hemoglobin A1c 8.9% 11. Current tobacco dependence 12. COPD with FEV1 52% of predicted 13. Chronic kidney disease stage III with polycystic kidney disease 14. History of bladder cancer 15. Prostate cancer Plan: 1. Continue to maximize medical therapy with aspirin, statin, beta luisa, KILLIAN inhibitor. Continue to hold Eliquis 2. Continue to wean O2 as tolerated. Bronchodilators per pulmonology. Continue Lasix. Encourage incentive spirometry 3. Preoperative teaching reinforced with the patient and family, all questions answered 4. Computed tomography scan of the chest was completed, results reviewed with Dr. Pop. 5. Patient needs coronary artery bypass surgery plus left atrial appendage ligation, timing to be determined. Patient needs transesophageal echocardiogram to evaluate mitral and tricuspid regurgitation, scheduled for today 6. GI/DVT prophylaxis 7. Once able to eat again, may give antiemetics prior to meals. Discussion had with patient concerning needed for oral nutrition, encourage oral intake, family may bring food from home 8. Continue medical management per primary care service. 9. More recommendations to follow Time with Patient: Greater than 30
[2019-03-18] MEDS: LINAGLIPTIN 5 MG TABLET PO SCH (07:47)
[2019-03-18] MEDS: METOPROLOL TARTRATE 50 MG TAB PO SCH ×2 (07:49→20:39)
[2019-03-18] MEDS ORDERED: FUROSEMIDE 40 MG TAB PO SCH (09:00)
[2019-03-18] MEDS: IPRATROPIUM-ALBUTEROL 3 ML NEB INHALATION SCH ×5 (09:35→20:03)
[2019-03-18] MEDS: BUDESONIDE 1 MG/2 ML NEBU INHALATION SCH ×2 (09:35→20:03)
[2019-03-18] MEDS: FORMOTEROL FUMARATE 20 MCG/2 ML NEBU INHALATION SCH ×2 (09:35→20:03)
--- NOTE | 2019-03-18 09:44 | P.PN ---
Subjective Progress Note Date: 03/18/19 On today's evaluation of 03/18/2019 the patient is resting comfortably in bed. He is weak. His oral intake is quite diminished and minimal. As mentioned earlier, he has triple-vessel coronary artery disease with critical lesion involving the RCA at multiple sites also critical lesion in the circumflex which is a nondominant vessel. LAD has moderate disease. Note that the patient also had an echocardiogram that showed dilated LA, dilated RV, severe pulmonary hypertension, moderate MR, ejection fraction of 35-40%. His LVEDP on the cath was 16. The patient also had runs of a febrile currently on oral amiodarone on his cardiac rhythm is sinus. Chest x-ray still showing better pleural effusion along with cardiomegaly. There is a smoker. Says spirometry showed an FEV1 of 52%. Urine output is noted of 5200 disease an hour. He is on by mouth Lasix. He has bladder cancer. He has undergone previous transurethral resection of bladder lesions in addition to intravesicular chemotherapy. He has chronic stage III kidney disease related to polycystic kidneys. Being evaluated for bypass surgery. IAN is in progress. Objective - Vital Signs Vital signs: Vital Signs Temp 98.7 F 03/18/19 08:00 Pulse 92 03/18/19 09:00 Resp 24 03/18/19 09:00 BP 144/73 03/18/19 09:00 Pulse Ox 97 03/18/19 09:00 Intake & Output 03/17/19 03/18/19 03/18/19 18:59 06:59 18:59 Intake Total 425 392.63 111.569 Output Total 1085 930 180 Balance -660 -537.37 -68.431 Weight 69.7 kg Intake: IV 220 60 .9 220 60 Intake, IV Titration 250 172.63 51.569 Amount Heparin Sod,Pork in 0.45% 250 172.63 51.569 NaCl 25,000 unit In 0.45 % NaCl 1 250ml.bag @ 12 UNITS/KG/HR 9.012 mls/hr IV .Q24H [facility] Rx#: [id number] Oral 175 Output: Urine 1085 930 180 Other: Voiding Method Indwelling Catheter Indwelling Catheter Indwelling Catheter # Bowel Movements 1 - Exam Gen. appearance the patient is a mild degree of respiratory distress. currently is on 5 L of oxygen by nasal cannula. Head exam was generally normal. There was no scleral icterus or corneal arcus. Mucous membranes were moist. Neck was supple and without jugular venous distension, thyromegaly, or carotid bruits. Carotids were easily palpable bilaterally. There was no adenopathy. Lungs sounds are diminished bilaterally along with scattered expiratory wheezes throughout the lung his bilaterally. Heart sounds are distant. Otherwise, Cardiac exam revealed the PMI to be normally situated and sized. The rhythm was regular and no extrasystoles were noted during several minutes of auscultation. The first and second heart sounds were normal and physiologic splitting of the second heart sound was noted. There were no murmurs, rubs, clicks, or gallops. Abdominal exam revealed normal bowel sounds. The abdomen was soft, non-tender, and without masses, organomegaly, or appreciable enlargement of the abdominal aorta. Examination of the extremities revealed easily palpable radial, femoral and pedal pulses. There was no cyanosis, clubbing or edema. Examination of the skin revealed no evidence of significant rashes, suspicious appearing nevi or other concerning lesions. Neurologically awake and alert there is no focal logical deficits. - Labs CBC & Chem 7: 03/18/19 04:38 03/18/19 04:38 Labs: Abnormal Lab Results - Last 24 Hours (Table) 03/17/19 03/17/19 03/17/19 Range/Units 11:19 16:29 21:20 WBC (3.8-10.6) k/uL APTT (22.0-30.0) sec Sodium (137-145) mmol/L Chloride (98-107) mmol/L BUN (9-20) mg/dL Creatinine (0.66-1.25) mg/dL Glucose (74-99) mg/dL POC Glucose (mg/dL) 146 H 213 H 189 H (75-99) mg/dL 03/18/19 03/18/19 03/18/19 Range/Units 04:38 04:38 04:38 WBC 15.0 H (3.8-10.6) k/uL APTT 39.4 H (22.0-30.0) sec Sodium 133 L (137-145) mmol/L Chloride 97 L (98-107) mmol/L BUN 35 H (9-20) mg/dL Creatinine 1.74 H (0.66-1.25) mg/dL Glucose 213 H (74-99) mg/dL POC Glucose (mg/dL) (75-99) mg/dL 03/18/19 Range/Units 06:43 WBC (3.8-10.6) k/uL APTT (22.0-30.0) sec Sodium (137-145) mmol/L Chloride (98-107) mmol/L BUN (9-20) mg/dL Creatinine (0.66-1.25) mg/dL Glucose (74-99) mg/dL POC Glucose (mg/dL) 250 H (75-99) mg/dL Microbiology - Last 24 Hours (Table) 03/14/19 08:48 Blood Culture - Preliminary Blood No Growth after 72 hours Assessment and Plan Plan: 1 severe multivessel coronary artery disease, post non-STEMI and the patient is being considered for cardiac revascularization surgery. The patient has COPD. The patient has CHF. Ejection fraction was around 35-40% and he has severe pulmonary hypertension with elevated left ventricular end-diastolic pressure in addition to bilateral pleural effusions. His blood chronic kidney disease related to polycystic kidney and all these comorbidities will put him at an increased risk of postoperative complications following bypass/open heart surgery. His risk score is to the calculated by the cardiothoracic team. Currently is free of any chest pain. 2 paroxysmal atrial fibrillation current rhythm is sinus on amiodarone no anticoagulants pending IAN 3 severe pulmonary hypertension with possible mitral regurgitation moderate to severe, awaiting IAN 4 hypertension 5 hyperlipidemia 6 diabetes mellitus 7 chronic stage III kidney failure 8 COPD with history of chronic smoking 9 polycystic kidney disease 10 history of bladder cancer post-transurethral resection followed by intravesicular chemotherapy 11 diminished oral intake, currently on Ensure 12 acute hypoxic respiratory failure currently on 5 L of oxygen by nasal cannula 13 carotid artery stenosis , plaque with stenosis bilaterally left more than right plan IAN Oral Lasix Oral amiodarone Incentive spirometer Wean down the FiO2 as tolerated to maintain a saturation above 90%. considered to be high risk for cardiothoracic surgery in terms of outcomes We'll follow
--- NOTE | 2019-03-18 10:24 | XR ---
EXAMINATION TYPE: XR chest 1V portable DATE OF EXAM: 03/18/2019 COMPARISON: 03/17/2019 HISTORY: Shortness of breath TECHNIQUE: Single frontal view of the chest is obtained. FINDINGS: There are persistent bibasilar opacities with a layering effect likely atelectasis and sma ll pleural effusions. Lung apices are well aerated. Nodular density at the right lung base could rela te to a nipple shadow. Attention on follow-up exams. Cardia mediastinal silhouette is mildly enlarged and stable. Diffuse osseous demineralization is seen. IMPRESSION: Similar-appearing layering bilateral small pleural effusions and associated airspace dis ease, likely atelectasis. There is a nodular density at the right lung base may relate to an overlyin g nipple shadow. Attention on follow-up exams.
[2019-03-18] MEDS ORDERED: fentaNYL (PF) 50 MCG/ML 2 ML AMP IVP STA (11:39)
[2019-03-18] MEDS ORDERED: BENZOCAINE SPRAY 1 CAN TOPICAL STA (11:40)
[2019-03-18] MEDS: MIDAZOLAM 2 MG/2 ML VIAL IV STA ×2 (11:43→11:55)
[2019-03-18] MEDS ORDERED: MIDAZOLAM 2 MG/2 ML VIAL IV STA (11:51)
[2019-03-18] MEDS: HEPARIN SOD,PORK IN 0.45% NACL 25,000 UNIT in 0.45% NACL 1 250ML.BAG IV SCH (12:19)
[2019-03-18 12:23] LABS: Glucose,Whole Blood 220 mg/dL (75-99)
--- NOTE | 2019-03-18 12:34 | ECHOT ---
TRANSESOPHAGEAL ECHOCARDIOGRAM This transesophageal echocardiogram was performed to assess the mitral regurgitation. The patient was given intravenous sedation with Versed and fentanyl and transesophageal echocardiogram was performed without any complications. FINDINGS: Left ventricular chamber is normal in size. There is a lateral wall hypokinesia with estimated ejection fraction in the range of 40% to 45%. Mitral valve morphology is normal. There is no evidence of any mitral valve prolapse. There is a 2+ mitral regurgitation noted. There is no evidence of any reversal of flow in the pulmonary vein. Left atrium is mildly enlarged. There is no evidence of thrombus in left atrial appendage. Right ventricle, right atrial chamber are normal in size. There is a mild tricuspid regurgitation noted. Small pericardial effusion is noted. Interatrial septum is intact. There is no evidence of any PFO. There is a diffuse atherosclerotic plaque noted in the descending thoracic aorta as well as arch of the aorta. FINAL IMPRESSION: 1. Left ventricular chamber is normal in size with the lateral wall hypokinesia with estimated ejection fraction in the range of 40% to 45%. 2. Mitral valve morphology is normal. There is a 2+ mitral regurgitation noted. Mild tricuspid regurgitation is noted. 3. Right ventricular, right atrial chamber are normal in size. 4. There is no evidence of thrombus in the left atrial appendage. 5. Interatrial septum is intact. 6. Diffuse atherosclerotic plaque noted in the descending thoracic aorta. 7. Small pericardial effusion is noted. MMODL / IJN: [id number] /
[2019-03-18] MEDS ORDERED: DEXTROSE 5% IN WATER 100 ML with AMIODARONE 150 MG IV ONE (16:27)
[2019-03-18] MEDS ORDERED: AMIODARONE 360 MG in DEXTROSE 5% IN WATER 200 ML IV ONE ×2 (16:29)
[2019-03-18 16:47] LABS: Glucose,Whole Blood 205 mg/dL (75-99)
[2019-03-18 18:31] LABS: Magnesium 1.9 mg/dL (1.6-2.3); Potassium 4.2 mmol/L (3.5-5.1)
[2019-03-18] MEDS ORDERED: Magnesium Replacement Protocol 1 EACH MISC MISCELLANE PRN (19:01)
--- NOTE | 2019-03-18 19:36 | XR ---
EXAMINATION TYPE: XR abdomen 1V DATE OF EXAM: 03/18/2019 COMPARISON: NONE HISTORY: Abdominal pain TECHNIQUE: 2 views supine FINDINGS: There are multiple dilated gas-filled loops of bowel throughout the abdomen. There is some increased density over the abdomen that could relate to ascites. There are chest leads. There are no definite calcifications over the kidneys. IMPRESSION: Numerous gas-filled loops of bowel that could relate to ileus or mechanical obstruction. No free air.
[2019-03-18] MEDS: MAGNESIUM SULFATE-D5W PMX 1 GM in DEXTROSE/WATER 1 100ML.BAG IVPB SCH ×2 (20:10→21:18)
[2019-03-18] MEDS: AMIODARONE 300 MG in DEXTROSE 5% IN WATER 250 ML IV SCH ×2 (20:22)
[2019-03-18 20:32] LABS: Glucose,Whole Blood 273 mg/dL (75-99)
[2019-03-18] MEDS: ATORVASTATIN 80 MG TAB PO SCH (20:39)
[2019-03-18] MEDS: ALPRAZolam 0.25 MG TAB PO PRN (21:57)
--- NOTE | 2019-03-18 22:08 | XR ---
EXAMINATION TYPE: XR chest 1V DATE OF EXAM: 03/18/2019 COMPARISON: Today HISTORY: Short of breath TECHNIQUE: Single view FINDINGS: There is nasogastric tube and the tip is well into the stomach. There is blunting of the co stophrenic angles. There is mild pulmonary congestion. Heart is borderline enlarged. IMPRESSION: There is probably mild heart failure. Pleural effusions unchanged.
[2019-03-19] MEDS: AMIODARONE 300 MG in DEXTROSE 5% IN WATER 250 ML IV SCH ×4 (05:45→17:57)
[2019-03-19 05:46] LABS: Basophils # (A) 0.2 k/uL (0-0.2); Basophils % (A) 2 %; Eosinophils # (A) 0.1 k/uL (0-0.7); Eosinophils % (A) 1 %; HCT 43.4 % (39.0-53.0); HGB 14.2 gm/dL (13.0-17.5); Lymphocytes % (A) 0 %; MCH 28.7 pg (25.0-35.0); MCHC 32.8 g/dL (31.0-37.0); MCV 87.4 fL (80.0-100.0); Mean Platelet Volume 8.5; Monocytes % (A) 9 %; Neutrophils # (A) 9.6 k/uL (1.3-7.7); Neutrophils % (A) 87 %; Platelet Count 192 k/uL (150-450); RBC 4.96 m/uL (4.30-5.90); RDW 14.9 % (11.5-15.5)
[2019-03-19 05:48] LABS: Calcium 9.1 mg/dL (8.4-10.2); Magnesium 2.4 mg/dL (1.6-2.3)
[2019-03-19 05:50] LABS: Potassium 4.4 mmol/L (3.5-5.1)
[2019-03-19 06:44] LABS: Glucose,Whole Blood 337 mg/dL (75-99)
[2019-03-19] MEDS: PANTOPRAZOLE 40 MG TABLET PO SCH (06:58)
[2019-03-19] MEDS: glipiZIDE 10 MG TAB PO SCH ×2 (06:58→16:31)
[2019-03-19] MEDS: INSULIN ASPART (NovoLOG) 100 UNIT/ML VIAL SQ SCH ×5 (07:01→23:48)
[2019-03-19] MEDS: HEPARIN SOD,PORK IN 0.45% NACL 25,000 UNIT in 0.45% NACL 1 250ML.BAG IV SCH ×3 (07:08→23:48)
[2019-03-19] MEDS: IPRATROPIUM-ALBUTEROL 3 ML NEB INHALATION SCH ×4 (07:26→21:52)
[2019-03-19] MEDS: BUDESONIDE 1 MG/2 ML NEBU INHALATION SCH ×2 (07:26→21:52)
[2019-03-19] MEDS: FORMOTEROL FUMARATE 20 MCG/2 ML NEBU INHALATION SCH ×2 (07:26→21:52)
--- NOTE | 2019-03-19 07:40 | P.PN ---
Subjective Progress Note Date: 03/19/19 On today's evaluation of 03/18/2019 the patient is resting comfortably in bed. He is weak. His oral intake is quite diminished and minimal. As mentioned earlier, he has triple-vessel coronary artery disease with critical lesion involving the RCA at multiple sites also critical lesion in the circumflex which is a nondominant vessel. LAD has moderate disease. Note that the patient also had an echocardiogram that showed dilated LA, dilated RV, severe pulmonary hypertension, moderate MR, ejection fraction of 35-40%. His LVEDP on the cath was 16. The patient also had runs of a febrile currently on oral amiodarone on his cardiac rhythm is sinus. Chest x-ray still showing better pleural effusion along with cardiomegaly. There is a smoker. Says spirometry showed an FEV1 of 52%. Urine output is noted of 5200 disease an hour. He is on by mouth Lasix. He has bladder cancer. He has undergone previous transurethral resection of bladder lesions in addition to intravesicular chemotherapy. He has chronic stage III kidney disease related to polycystic kidneys. Being evaluated for bypass surgery. IAN is in progress. on 03/19/2019 I'm seeing the patient for a follow-up. The patient became progressively worse overnight. He developed abdominal distention and firmness throughout his abdomen and at that point a Flintstones the abdomen was done that showed ileus and distention of the bowels. Based on that, an NG tube was inserted and a total of 550 mL of gastric dark material was aspirated overnight. This morning, his abdomen is still slightly distended and tense although somewhat improved compared to yesterday. Lactic acid level was at 1.5. No emesis. No bowel movements. He has not passed any Lantus. Bowel sounds are also absent. There is some mild direct tenderness throughout his abdomen. No rebound tenderness. No guarding. Hemodynamically, he is afebrile. No sig nificant tachycardia. He is on 5 L of oxygen by nasal cannula and his pulse ox is around 99%. His chest x-ray from yesterday showed improvement in pulmonary edema and there was some still perihilar fullness and congestion. A IAN was done yesterday and the patient was found to have +2 mitral regurgitation in addition to an ejection fraction of 40-45%.the patient has multivessel coronary artery disease. He was being considered for bypass surgery and the surgery is currently on hold. He remains on IV heparin. Hemoglobin is stable.He was being considered for bypass surgery. Surgery is currently on hold. He remains on IV heparin. Hemoglobin remains stable. He is a smoker. His FEV1 is 52% of predicted. He is currently on oral Lasix which is on hold. Diabetic medication and also on hold. He has history of bladder cancer. He has undergone transurethral resection of the bladder lesion in the past. He has stage III kidney disease related to polycystic kidneys.. Objective - Vital Signs Vital signs: Vital Signs Temp 97 F L 03/19/19 04:00 Pulse 92 03/19/19 07:00 Resp 20 03/19/19 07:00 BP 151/82 03/19/19 07:00 Pulse Ox 96 03/19/19 07:00 Intake & Output 03/18/19 03/19/19 03/19/19 18:59 06:59 18:59 Intake Total 456.569 924.583 20 Output Total 1058 950 110 Balance -601.431 -25.417 -90 Weight 69.7 kg 69.6 kg Intake: IV 270 440 20 .9 270 240 20 Magnesium Sulfate-D5w Pmx 200 1 gm In Dextrose/Water 1 100ml.bag @ 100 mls/hr IVPB Q1H [facility] Rx#: [id number] Intake, IV Titration 51.569 484.583 Amount Amiodarone 300 mg In 234.583 Dextrose 5% in Water 250 ml @ 0.5 MG/MIN 25 mls/hr IV .Q10H [facility] Rx#: [id number] Heparin Sod,Pork in 0.45% 250.000 NaCl 25,000 unit In 0.45 % NaCl 1 250ml.bag @ 1, 502 UNIT/HR 15.02 mls/hr IV .[id number] [facility] Rx#: [id number] Heparin Sod,Pork in 0.45% 51.569 NaCl 25,000 unit In 0.45 % NaCl 1 250ml.bag @ 12 UNITS/KG/HR 9.012 mls/hr IV .Q24H [facility] Rx#: [id number] Oral 135 Output: Gastric Drainage 455 50 Urine 1055 495 60 Stool 3 Other: Voiding Method Indwelling Catheter Indwelling Catheter - Exam Gen. appearance the patient is a mild degree of respiratory distress. currently is on 5 L of oxygen by nasal cannula. Head exam was generally normal. There was no scleral icterus or corneal arcus. Mucous membranes were moist. Neck was supple and without jugular venous distension, thyromegaly, or carotid bruits. Carotids were easily palpable bilaterally. There was no adenopathy. Lungs sounds are diminished bilaterally along with scattered expiratory wheezes throughout the lung his bilaterally. Heart sounds are distant. Otherwise, Cardiac exam revealed the PMI to be normally situated and sized. The rhythm was regular and no extrasystoles were noted during several minutes of auscultation. The first and second heart sounds were normal and physiologic splitting of the second heart sound was noted. There were no murmurs, rubs, clicks, or gallops. Abdominal exam revealed normal bowel sounds. The abdomen distended and there is some mild direct tenderness. No rebound tenderness. No guarding. No organomegaly. No ascites. Bowel sounds are markedly diminished. Examination of the extremities revealed easily palpable radial, femoral and pedal pulses. There was no cyanosis, clubbing or edema. Examination of the skin revealed no evidence of significant rashes, suspicious appearing nevi or other concerning lesions. Neurologically awake and alert there is no focal logical deficits. - Labs CBC & Chem 7: 03/19/19 05:20 03/19/19 05:20 Labs: Abnormal Lab Results - Last 24 Hours (Table) 03/18/19 03/18/19 03/18/19 Range/Units 12:22 16:45 18:04 WBC (3.8-10.6) k/uL Neutrophils # (1.3-7.7) k/uL Lymphocytes # (1.0-4.8) k/uL APTT 39.8 H (22.0-30.0) sec Sodium (137-145) mmol/L Chloride (98-107) mmol/L BUN (9-20) mg/dL Creatinine (0.66-1.25) mg/dL Glucose (74-99) mg/dL POC Glucose (mg/dL) 220 H 205 H (75-99) mg/dL Magnesium (1.6-2.3) mg/dL 03/18/19 03/18/19 03/19/19 Range/Units 20:30 23:52 05:20 WBC 11.0 H (3.8-10.6) k/uL Neutrophils # 9.6 H (1.3-7.7) k/uL Lymphocytes # 0.0 L (1.0-4.8) k/uL APTT 72.4 H (22.0-30.0) sec Sodium (137-145) mmol/L Chloride (98-107) mmol/L BUN (9-20) mg/dL Creatinine (0.66-1.25) mg/dL Glucose (74-99) mg/dL POC Glucose (mg/dL) 273 H (75-99) mg/dL Magnesium (1.6-2.3) mg/dL 03/19/19 03/19/19 03/19/19 Range/Units 05:20 05:20 06:43 WBC (3.8-10.6) k/uL Neutrophils # (1.3-7.7) k/uL Lymphocytes # (1.0-4.8) k/uL APTT 55.6 H (22.0-30.0) sec Sodium 131 L (137-145) mmol/L Chloride 93 L (98-107) mmol/L BUN 41 H (9-20) mg/dL Creatinine 1.56 H (0.66-1.25) mg/dL Glucose 330 H (74-99) mg/dL POC Glucose (mg/dL) 337 H (75-99) mg/dL Magnesium 2.4 H (1.6-2.3) mg/dL Microbiology - Last 24 Hours (Table) 03/14/19 08:48 Blood Culture - Preliminary Blood No Growth after 96 hours Assessment and Plan Plan: 1 severe multivessel coronary artery disease, post non-STEMI and the patient is being considered for cardiac revascularization surgery. The patient has COPD. The patient has CHF. Ejection fraction was around 35-40% and he has severe pulmonary hypertension with elevated left ventricular end-diastolic pressure in addition to bilateral pleural effusions. His blood chronic kidney disease related to polycystic kidney and all these comorbidities will put him at an increased risk of postoperative complications following bypass/open heart lambert rgery. His risk score is to the calculated by the cardiothoracic team. Currently is free of any chest pain.the subsequent IAN showed improved ejection fraction of 40-45%, +2 mitral regurgitation 2 paroxysmal atrial fibrillation current rhythm is sinus on amiodarone currently on IV heparin 3 severe pulmonary hypertension with possible mitral regurgitation moderate to severe, 4 acute abdominal distention and pain with diffuse ileus, post NG tube insertion. Currently the patient is nothing by mouth 5 hyperlipidemia 6 diabetes mellitus 7 chronic stage III kidney failure, creatinine is stable 8 COPD with history of chronic smoking 9 polycystic kidney disease 10 history of bladder cancer post-transurethral resection followed by intravesicular chemotherapy 11 diminished oral intake, currently on Ensure 12 acute hypoxic respiratory failure currently on 5 L of oxygen by nasal cannula 13 carotid artery stenosis , plaque with stenosis bilaterally left more than right 14 hypertension plan IAN we'll suggest holding the oral medication for now including Lasix and diabetic medications. Monitor the blood sugars and cover the patient was placed. Insulin coverage General surgery consultation CAT scan of the abdomen and pelvis, no contrast Lactic acid level was nonelevated Incentive spirometer Wean down the FiO2 as tolerated to maintain a saturation above 90%. no plans for surgery at this point in time add IV Protonix IV Zofran for nausea IV hydralazine 10 mg every 4-6 hours for systolic blood pressure above 160
[2019-03-19] MEDS ORDERED: hydrALAZINE HCL 20 MG/ML 1 ML VIAL IVP PRN (07:42)
[2019-03-19] MEDS: ONDANSETRON 4 MG/2 ML VIAL IVP PRN ×2 (07:43→16:34)
--- NOTE | 2019-03-19 08:54 | P.PN ---
Subjective Progress Note Date: 03/19/19 Principal diagnosis: Triple-vessel coronary artery disease, non-STEMI this admission, acute hypoxic respiratory failure requiring initiation of BiPAP, acute systolic heart failure with EF 35-40% on TTE improved to 40-45% on IAN, moderate mitral regurgitation per transesophageal echocardiogram. Previous medical history of coronary artery disease with previous non-STEMI, hypertension, hyperlipidemia, paroxysmal atrial fibrillation on chronic Eliquis for anticoagulation, type 2 diabetes with current hemoglobin A1c 8.9%, left internal carotid artery stenosis 50-69% COPD with FEV1 52% of predicted, current tobacco dependence, chronic kidney disease stage III with polycystic kidney disease, bladder cancer, prostate cancer. Atrial fibrillation with rapid ventricular response. Possible ileus/bowel obstruction. The patient is currently laying in bed in the ICU. Developed severe abdominal pain yesterday afternoon, complains of nausea and belching. Lactic acid drawn 1.5. Abdominal xray completed demonstrating multiple gas-filled loops of bowel representing possible ileus/bowel obstruction. NG tube was placed with suctioning of reddish brown liquid which smells like stool. Patient did have stool yesterday morning which he states was liquid. Continues to complain of abdominal pain this morning. Denies chest pain, shortness of breath. Also, had short run of afib and restarted on amio gtt last night, currently in normal sinus rhythm. Objective - Vital Signs Vital signs: Vital Signs Temp 97 F L 03/19/19 04:00 Pulse 86 03/19/19 07:44 Resp 20 03/19/19 07:00 BP 151/82 03/19/19 07:00 Pulse Ox 96 03/19/19 07:00 Intake & Output 03/18/19 03/19/19 03/19/19 18:59 06:59 18:59 Intake Total 456.569 924.583 20 Output Total 1058 950 110 Balance -601.431 -25.417 -90 Weight 69.7 kg 69.6 kg Intake: IV 270 440 20 .9 270 240 20 Magnesium Sulfate-D5w Pmx 200 1 gm In Dextrose/Water 1 100ml.bag @ 100 mls/hr IVPB Q1H [facility] Rx#: [id number] Intake, IV Titration 51.569 484.583 Amount Amiodarone 300 mg In 234.583 Dextrose 5% in Water 250 ml @ 0.5 MG/MIN 25 mls/hr IV .Q10H [facility] Rx#: [id number] Heparin Sod,Pork in 0.45% 250.000 NaCl 25,000 unit In 0.45 % NaCl 1 250ml.bag @ 1, 502 UNIT/HR 15.02 mls/hr IV .[id number] [facility] Rx#: [id number] Heparin Sod,Pork in 0.45% 51.569 NaCl 25,000 unit In 0.45 % NaCl 1 250ml.bag @ 12 UNITS/KG/HR 9.012 mls/hr IV .Q24H [facility] Rx#: [id number] Oral 135 Output: Gastric Drainage 455 50 Urine 1055 495 60 Stool 3 Other: Voiding Method Indwelling Catheter Indwelling Catheter - Constitutional General appearance: Present: cooperative, mild distress - Respiratory Details: Lungs sounds diminished bilaterally. Respirations even, nonlabored. Currently on 5 L high flow nasal cannula with oxygen saturation 94%. Not using incentive spirometry at this time. Strong cough. - Cardiovascular Details: S1, S2 present. Regular rate and rhythm, normal sinus rhythm on telemetry. Palpable peripheral pulses bilaterally. No edema present. No calf pain or tenderness noted. SCDs present. - Gastrointestinal Gastrointestinal Comment(s): Abdomen soft, tender to palpation, slightly distended. Tympanic to percussion. Minimally active bowel sounds. Currently NPO, NG tube to low intermittent suction with 600 mL reddish brown stool smelling liquid present. - Genitourinary Genitourinary Comment(s): Kam present draining clear, yellow urine. Output overnight 30-45 mL per hour, 1505 mL in the last 24 hours. - Integumentary Integumentary Comment(s): Skin is warm and dry with evidence of good perfusion - Neurologic Neurologic: Present: CNII-XII intact - Musculoskeletal Musculoskeletal: Present: strength equal bilaterally - Psychiatric Psychiatric Comment(s): flat affect Psychiatric: Present: A&O x's 3 - Allied health notes Allied health notes reviewed: nursing - Labs CBC & Chem 7: 03/19/19 05:20 03/19/19 05:20 Labs: Abnormal Lab Results - Last 24 Hours (Table) 03/18/19 03/18/19 03/18/19 Range/Units 12:22 16:45 18:04 WBC (3.8-10.6) k/uL Neutrophils # (1.3-7.7) k/uL Lymphocytes # (1.0-4.8) k/uL APTT 39.8 H (22.0-30.0) sec Sodium (137-145) mmol/L Chloride (98-107) mmol/L BUN (9-20) mg/dL Creatinine (0.66-1.25) mg/dL Glucose (74-99) mg/dL POC Glucose (mg/dL) 220 H 205 H (75-99) mg/dL Magnesium (1.6-2.3) mg/dL 03/18/19 03/18/19 03/19/19 Range/Units 20:30 23:52 05:20 WBC 11.0 H (3.8-10.6) k/uL Neutrophils # 9.6 H (1.3-7.7) k/uL Lymphocytes # 0.0 L (1.0-4.8) k/uL APTT 72.4 H (22.0-30.0) sec Sodium (137-145) mmol/L Chloride (98-107) mmol/L BUN (9-20) mg/dL Creatinine (0.66-1.25) mg/dL Glucose (74-99) mg/dL POC Glucose (mg/dL) 273 H (75-99) mg/dL Magnesium (1.6-2.3) mg/dL 03/19/19 03/19/19 03/19/19 Range/Units 05:20 05:20 06:43 WBC (3.8-10.6) k/uL Neutrophils # (1.3-7.7) k/uL Lymphocytes # (1.0-4.8) k/uL APTT 55.6 H (22.0-30.0) sec Sodium 131 L (137-145) mmol/L Chloride 93 L (98-107) mmol/L BUN 41 H (9-20) mg/dL Creatinine 1.56 H (0.66-1.25) mg/dL Glucose 330 H (74-99) mg/dL POC Glucose (mg/dL) 337 H (75-99) mg/dL Magnesium 2.4 H (1.6-2.3) mg/dL Microbiology - Last 24 Hours (Table) 03/14/19 08:48 Blood Culture - Preliminary Blood No Growth after 96 hours - Imaging and Cardiology Chest x-ray: report reviewed, image reviewed Abdominal x-ray: report reviewed, image reviewed Assessment and Plan Assessment: 1. Triple-vessel coronary artery disease, non-STEMI this admission 2. Acute hypoxic respiratory failure requiring initiation of BiPAP 3. Acute systolic heart failure with EF 35-40% on TTE, 40-45% on IAN 4. Moderate mitral regurgitation per transesophageal echocardiogram 5. History of coronary artery disease with previous non-STEMI 6. Left internal carotid stenosis 50-69% 7. Hypertension 8. Hyperlipidemia 9. Paroxysmal atrial fibrillation on chronic Eliquis, last dose 03/11/2019 10. Type 2 diabeteswith current hemoglobin A1c 8.9% 11. Current tobacco dependence 12. COPD with FEV1 52% of predicted 13. Chronic kidney disease stage III with polycystic kidney disease 14. History of bladder cancer 15. Prostate cancer 16. Possible ileus/bowel obstruction Plan: 1. Continue to maximize medical therapy with aspirin, statin, beta luisa, KILLIAN inhibitor. Continue to hold Eliquis 2. Continue to wean O2 as tolerated. Bronchodilators per pulmonology. Continue Lasix. Encourage incentive spirometry 3. Patient needs coronary artery bypass surgery plus left atrial appendage ligation, timing to be determined, needs to have current active issues resolved first for safety of the patient. 4. General surgery consult placed by Dr. Aguiar, appreciate recommendations. CT scan of abdomen ordered 5. Arrythmia management per cardiology 6. GI/DVT prophylaxis 7. Continue medical management per primary care service. 8. More recommendations to follow Time with Patient: Greater than 30
[2019-03-19] MEDS: ASPIRIN 81 MG PO SCH (09:27)
[2019-03-19] MEDS: FENOFIBRATE 160 MG TAB PO SCH (09:27)
[2019-03-19] MEDS: hydrALAZINE HCL 50 MG TAB PO SCH ×3 (09:27→20:22)
[2019-03-19] MEDS: ISOSORBIDE MONONITRATE ER 30 MG TAB.ER.24H PO SCH (09:28)
[2019-03-19] MEDS: LINAGLIPTIN 5 MG TABLET PO SCH (09:28)
[2019-03-19] MEDS: METOPROLOL TARTRATE 50 MG TAB PO SCH ×2 (09:28→20:22)
--- NOTE | 2019-03-19 10:37 | CT ---
EXAMINATION TYPE: CT abdomen pelvis wo con DATE OF EXAM: 03/19/2019 HISTORY: Abdominal pain, distention, ileus. History of bladder cancer CT DLP: 543.1 mGycm. Automated Exposure Control for Dose Reduction was Utilized. TECHNIQUE: CT scan of the abdomen and pelvis is performed without oral or IV contrast. COMPARISON: CT abdomen and pelvis November 28, 2018. FINDINGS: Within the limitations of a non-contrast study, the following observations are made. LUNG BASES: There are small to borderline moderate sized bilateral pleural effusions partially imaged with associated compressive atelectasis increased in size from prior. Calcified pleural plaques bila terally are noted suggesting prior asbestos exposure. Right coronary artery stent thought present. LIVER/GB: Stable large rim calcified 1.6 cm gallstone which does not layer dependently similar to gabby or. PANCREAS: No significant abnormality is seen. SPLEEN: No significant abnormality is seen. ADRENALS: Low dense thickening to both adrenal glands consistent with benign lipid rich hyperplasia i s redemonstrated. KIDNEYS: Asymmetric atrophy and greater cortical thinning to the left kidney versus right kidney with scattered simple-appearing thin-walled cysts bilaterally. There is 1 to 2 mm nonobstructing calculus lower pole left kidney coronal image 61 identified. There is oval-shaped exophytic 1.5 cm hyperdense lesion upper pole right kidney coronal image 60 favoring hemorrhagic cyst. No hydronephrosis is evid ent bilaterally. Kam catheter noted within decompressed bladder that has moderate concentric wall t hickening new from prior. BOWEL: New nasogastric tube. Stomach not suspiciously dilated. Duodenal sweep is not dilated. There i s gradual increased prominence of fluid-filled bowel loops with abnormally dilated ileal loops involv ing the lower abdomen and pelvis with air-fluid levels. Small bowel dilated up to 3.8 cm axial image 63. There is gradual transition into less prominent distal ileal loops right mid abdomen with termina l ileum unremarkable coronal image 54. Fecal material is seen in nondistended colon along the periphe ry. Sigmoid colonic diverticulosis redemonstrated without acute diverticulitis. GENITAL ORGANS: Prostate gland remains mildly enlarged. Adjacent pelvic phleboliths redemonstrated. LYMPH NODES: No greater than 1cm abdominal or pelvic lymph nodes are appreciated. OSSEOUS STRUCTURES: Moderate multilevel spurring and disc space narrowing. Moderate narrowing and spu rring both hip joints. Mild asymmetric sclerosis left sacroiliac joint. OTHER: Moderate to severe calcified plaque of the aorta extends into branch vessels. New mild ill-def ined fluid and fat stranding anterior right thigh for reference coronal image 39. No well-formed flui d collection at this level is seen. IMPRESSION: 1. New distal small bowel obstruction without distinct transition point clearly seen as detailed abov e. 2. New moderate wall thickening and bladder, correlate clinically for acute cystitis otherwise other etiologies need to be considered. Wall thickening is fairly circumferential making neoplasm less like ly but cannot be excluded in patient with history of bladder cancer. 3. Small to borderline moderate-sized bilateral pleural effusions partially imaged. Increase in size from prior. 4. Perhaps focal inflammatory change or contusion injury anterior right thigh, correlate clinically.
[2019-03-19 11:52] LABS: Glucose,Whole Blood 288 mg/dL (75-99)
[2019-03-19] MEDS: PIPERACILLIN-TAZOBACTAM 3.375 GM in SODIUM CHLORIDE 0.9% 100 ML IVPB SCH ×2 (12:14→20:23)
[2019-03-19] MEDS: HYDROmorphone 1 MG/ML 1 ML SYRINGE IVP PRN ×3 (12:14→21:15)
--- NOTE | 2019-03-19 13:18 | PN ---
PROGRESS NOTE This patient went back into the atrial fibrillation yesterday afternoon. Subsequently patient was restarted on IV amiodarone and converted to the normal sinus rhythm. Patient subsequently developed significant abdominal pain. The CT scan of the abdomen is done which shows possible bowel obstruction, ischemic bowel cannot be entirely excluded. Patient has an NG tube and about 1.5 L of the fluid was removed. The patient remains on IV heparin drip and the PT, INR remains in the therapeutic range. Patient currently now is in normal sinus rhythm. Chest x-ray shows improvement in the congestive heart failure. Patient's blood pressure is 147/72 mmHg. First and second heart sounds are normal. Lungs are clear to auscultation and percussion. We will continue patient on IV amiodarone and heparin. Patient's prognosis remains guarded in view of the multiple medical problems. Hopefully, the patient has ischemic bowel and that will resolve with medical treatment. Patient is considered a very high risk for any kind of surgical intervention. MMODL / IJN: [id number] /
--- NOTE | 2019-03-19 14:00 | P.GSCN ---
History of Present Illness Consult date: 03/19/19 Reason for Consult: abdominal pain Requesting physician: Radames Aguiar History of present illness: CHIEF COMPLAINT: abdominal pain HISTORY OF PRESENT ILLNESS: 73-year-old male who is currently admitted to the hospital secondary to non-STEMI. Patient was found to have severe multivessel coronary artery disease and is being considered for myocardial revascularization surgery. He is currently on IV heparin drip. Gen. surgery was consulted to evaluate patient after he developed abdominal pain yesterday. patient underwent KUB x-ray yesterday revealing numerous gas-filled loops of bowel that could relate to ileus or mechanical obstruction. No free air. Patient had NG tube placement yesterday. patient examined at the bedside with Dr. Hayes. Patient continues to report abdominal pain. Nursing reports approximately 1500 mL out of NG tube thus far today. NG contents are bloody/brownish in color. PAST MEDICAL HISTORY: See list. PAST SURGICAL HISTORY: See list. SOCIAL HISTORY: No illicit drug use. REVIEW OF SYSTEMS: CONSTITUTIONAL: Denies fever or chills. HEENT: Denies blurred vision, vision changes, or eye pain. Denies hemoptysis CARDIOVASCULAR: Denies chest pain or pressure. RESPIRATORY: No shortness of breath. GASTROINTESTINAL: Refer to HPI for pertinent findings HEMATOLOGIC: Denies bleeding disorders. GENITOURINARY: Denies any blood in urine. SKIN: Denies pruitis. Denies rash. PHYSICAL EXAM: VITAL SIGNS: Reviewed. GENERAL: Well-developed in no acute distress. HEENT: No sclera icterus. Extraocular movements grossly intact. Moist buccal mucosa. Head is atraumatic, normocephalic. ABDOMEN: Distended. Diffuse abdominal tenderness. Positive rebound tenderness. NEUROLOGIC: Alert and oriented. Cranial nerves II through XII grossly intact. LABORATORY DATA: WBC 11.0. Hemoglobin 14.2. Most recent lactic acid 1.5. IMAGING: CT abdomen and pelvis: New distal small bowel obstruction without distinct transition point. ASSESSMENT: 1. Abdominal pain 2. Small bowel obstruction, suspect ischemic bowel PLAN: Continue NG tube to low intermittent suction. Continue heparin drip. Monitor hemoglobin as gastric contents appear to be blood tinged Begin Zosyn IV every 8 hours Dilaudid IVP every 3 hours as needed for pain No surgical intervention recommended at this time. Will continue with conservati ve management at this time. Patient is very high risk for surgical intervention. Nurse practitioner note has been reviewed by physician. Signing provider agrees with the documented findings, assessment, and plan of care. Past Medical History Past Medical History: Atrial Fibrillation, Coronary Artery Disease (CAD), COPD, Diabetes Mellitus, GERD/Reflux, Hyperlipidemia, Myocardial Infarction (ID), Prostate Disorder, Renal Disease Additional Past Medical History / Comment(s): ID x 2, see Dr Price H&P, renal failure, diff urinating due to enlarged prostate, hx bladder cancer, paroxysmal atrial fibrillation on Eliquis Last Myocardial Infarction Date:: 01/2018 History of Any Multi-Drug Resistant Organisms: None Reported Past Surgical History: Heart Catheterization, Hernia Repair, Orthopedic Surgery Additional Past Surgical History / Comment(s): surgery to remove bladder tumor, rt shoulder surgery, Past Anesthesia/Blood Transfusion Reactions: No Reported Reaction Smoking Status: Current every day smoker Past Alcohol Use History: None Reported Past Drug Use History: None Reported - Past Family History Brother(s) Family Medical History: Coronary Artery Disease (CAD) Mother Family Medical History: No Reported History Medications and Allergies Home Medications Medication Instructions Recorded Confirmed Type Aspirin EC [Ecotrin Low Dose] 81 mg PO DAILY 01/26/18 03/13/19 History Fenofibrate Nanocrystallized 145 mg PO DAILY 01/26/18 03/13/19 History [Tricor] Linagliptin [Tradjenta] 5 mg PO DAILY 01/26/18 03/13/19 History Metoprolol Tartrate [Lopressor] 100 mg PO BID 01/26/18 03/13/19 History Omeprazole [PriLOSEC] 20 mg PO DAILY 01/26/18 03/13/19 History Simvastatin 40 mg PO HS 01/26/18 03/13/19 History glipiZIDE [Glucotrol] 10 mg PO AC-BID 01/26/18 03/13/19 History Apixaban [Eliquis] 2.5 mg PO BID #60 tablet 01/30/18 03/11/19 Rx Furosemide [Lasix] 40 mg PO DAILY #30 tab 01/30/18 03/13/19 Rx Lisinopril [Zestril] 10 mg PO DAILY #30 tab 01/30/18 03/13/19 Rx Fluticasone/Vilanterol [Breo 1 inhalation INHALATION QAM 03/11/19 03/13/19 History Ellipta 200-25 Mcg INH] Isosorbide Mononitrate [Isosorbide 30 mg PO DAILY 03/11/19 03/13/19 History Mononitrate ER] amLODIPine [Norvasc] 10 mg PO DAILY 03/11/19 03/13/19 History hydrALAZINE HCL [Apresoline] 50 mg PO TID 03/11/19 03/13/19 History Allergies Allergy/AdvReac Type Severity Reaction Status Date / Time No Known Allergies Allergy Verified 03/11/19 14:35 Surgical - Exam Vital Signs Temp Pulse Resp BP Pulse Ox 98.1 F 84 18 146/70 95 03/13/19 07:43 03/13/19 07:43 03/13/19 07:43 03/13/19 07:43 03/13/19 07:43 Results - Labs 03/19/19 05:20 03/19/19 05:20 Abnormal Lab Results - Last 24 Hours (Table) 03/18/19 03/18/19 03/18/19 Range/Units 16:45 18:04 20:30 WBC (3.8-10.6) k/uL Neutrophils # (1.3-7.7) k/uL Lymphocytes # (1.0-4.8) k/uL APTT 39.8 H (22.0-30.0) sec Sodium (137-145) mmol/L Chloride (98-107) mmol/L BUN (9-20) mg/dL Creatinine (0.66-1.25) mg/dL Glucose (74-99) mg/dL POC Glucose (mg/dL) 205 H 273 H (75-99) mg/dL Magnesium (1.6-2.3) mg/dL 03/18/19 03/19/19 03/19/19 Range/Units 23:52 05:20 05:20 WBC 11.0 H (3.8-10.6) k/uL Neutrophils # 9.6 H (1.3-7.7) k/uL Lymphocytes # 0.0 L (1.0-4.8) k/uL APTT 72.4 H (22.0-30.0) sec Sodium 131 L (137-145) mmol/L Chloride 93 L (98-107) mmol/L BUN 41 H (9-20) mg/dL Creatinine 1.56 H (0.66-1.25) mg/dL Glucose 330 H (74-99) mg/dL POC Glucose (mg/dL) (75-99) mg/dL Magnesium 2.4 H (1.6-2.3) mg/dL 03/19/19 03/19/19 03/19/19 Range/Units 05:20 06:43 11:50 WBC (3.8-10.6) k/uL Neutrophils # (1.3-7.7) k/uL Lymphocytes # (1.0-4.8) k/uL APTT 55.6 H (22.0-30.0) sec Sodium (137-145) mmol/L Chloride (98-107) mmol/L BUN (9-20) mg/dL Creatinine (0.66-1.25) mg/dL Glucose (74-99) mg/dL POC Glucose (mg/dL) 337 H 288 H (75-99) mg/dL Magnesium (1.6-2.3) mg/dL Microbiology - Last 24 Hours (Table) 03/14/19 08:48 Blood Culture - Preliminary Blood No Growth after 120 hours Diabetes panel 03/18/19 03/19/19 Range/Units 18:04 05:20 Sodium 131 L (137-145) mmol/L Potassium 4.2 4.4 (3.5-5.1) mmol/L Chloride 93 L (98-107) mmol/L Carbon Dioxide 24 (22-30) mmol/L BUN 41 H (9-20) mg/dL Creatinine 1.56 H (0.66-1.25) mg/dL Glucose 330 H (74-99) mg/dL Calcium 9.1 (8.4-10.2) mg/dL Calcium panel 03/19/19 Range/Units 05:20 Calcium 9.1 (8.4-10.2) mg/dL Pituitary panel 03/18/19 03/19/19 Range/Units 18:04 05:20 Sodium 131 L (137-145) mmol/L Potassium 4.2 4.4 (3.5-5.1) mmol/L Chloride 93 L (98-107) mmol/L Carbon Dioxide 24 (22-30) mmol/L BUN 41 H (9-20) mg/dL Creatinine 1.56 H (0.66-1.25) mg/dL Glucose 330 H (74-99) mg/dL Calcium 9.1 (8.4-10.2) mg/dL Adrenal panel 03/18/19 03/19/19 Range/Units 18:04 05:20 Sodium 131 L (137-145) mmol/L Potassium 4.2 4.4 (3.5-5.1) mmol/L Chloride 93 L (98-107) mmol/L Carbon Dioxide 24 (22-30) mmol/L BUN 41 H (9-20) mg/dL Creatinine 1.56 H (0.66-1.25) mg/dL Glucose 330 H (74-99) mg/dL Calcium 9.1 (8.4-10.2) mg/dL
[2019-03-19 15:58] LABS: Glucose,Whole Blood 210 mg/dL (75-99)
[2019-03-19 18:29] LABS: Glucose,Whole Blood 136 mg/dL (75-99)
[2019-03-19 20:19] LABS: Glucose,Whole Blood 101 mg/dL (75-99)
[2019-03-19] MEDS: ATORVASTATIN 80 MG TAB PO SCH (20:22)
[2019-03-19 23:48] LABS: Glucose,Whole Blood 183 mg/dL (75-99)
[2019-03-20 00:01] LABS: Glucose,Whole Blood 204 mg/dL (75-99)
[2019-03-20] MEDS ORDERED: DEXTROSE 5% IN WATER 100 ML with AMIODARONE 150 MG IV ONE (03:19)
[2019-03-20] MEDS ORDERED: DILTIAZEM DRIP BOLUS FROM BAG 1 MG SOLN IV ONE (03:23)
[2019-03-20] MEDS: AMIODARONE 300 MG in DEXTROSE 5% IN WATER 250 ML IV SCH ×6 (03:27→22:02)
[2019-03-20] MEDS ORDERED: DILTIAZEM 125 MG in SODIUM CHLORIDE 0.9% 100 ML IV SCH (03:30)
[2019-03-20 04:01] LABS: Glucose,Whole Blood 236 mg/dL (75-99)
[2019-03-20] MEDS: INSULIN ASPART (NovoLOG) 100 UNIT/ML VIAL SQ SCH ×2 (04:06→22:48)
[2019-03-20] MEDS: PIPERACILLIN-TAZOBACTAM 3.375 GM in SODIUM CHLORIDE 0.9% 100 ML IVPB SCH ×3 (04:07→20:20)
[2019-03-20 04:27] LABS: HCT 39.5 % (39.0-53.0); MCH 28.3 pg (25.0-35.0); MCHC 32.9 g/dL (31.0-37.0); MCV 85.9 fL (80.0-100.0); Mean Platelet Volume 9.3; Platelet Count 212 k/uL (150-450); RDW 14.5 % (11.5-15.5); WBC 12.8 k/uL (3.8-10.6)
[2019-03-20 04:43] LABS: Calcium 8.5 mg/dL (8.4-10.2); Potassium 3.8 mmol/L (3.5-5.1)
[2019-03-20] MEDS: IPRATROPIUM-ALBUTEROL 3 ML NEB INHALATION PRN (04:44)
[2019-03-20 04:48] LABS: Band Neutrophils % 13 %; Eosinophils # (M) 0.13 k/uL (0-0.7); Lymphocytes # (M) 0.38 k/uL (1.0-4.8); Monocytes # (M) 1.28 k/uL (0-1.0); Neutrophils % (M) 73 %; Nucleated Red Blood Cells 0 /100 WBC (0-0); Total Cells Counted 100
[2019-03-20] MEDS: glipiZIDE 10 MG TAB PO SCH (06:55)
[2019-03-20] MEDS: PANTOPRAZOLE 40 MG TABLET PO SCH (06:55)
--- NOTE | 2019-03-20 07:01 | XR ---
EXAMINATION TYPE: XR chest 1V DATE OF EXAM: 03/20/2019 CLINICAL HISTORY: COPD and pleural effusion. TECHNIQUE: Single AP portable upright view of the chest is obtained. COMPARISON: Chest x-ray from 2 days earlier. FINDINGS: Stable nasogastric tube projecting below diaphragm. Persistent bibasilar opacities. Upper lungs remain clear without pneumothorax. Cardiac silhouette size is stable and upper limits of normal atherosclerotic thoracic aorta. Osseous structures are intact. IMPRESSION: Overall stable findings, persistent central vascular congestion and small bilateral ple ural effusions with associated bibasilar atelectasis and/or infiltrate all redemonstrated.
[2019-03-20] MEDS: BUDESONIDE 1 MG/2 ML NEBU INHALATION SCH ×2 (08:23→21:37)
[2019-03-20] MEDS: FORMOTEROL FUMARATE 20 MCG/2 ML NEBU INHALATION SCH ×2 (08:23→21:37)
[2019-03-20] MEDS: IPRATROPIUM-ALBUTEROL 3 ML NEB INHALATION SCH ×4 (08:23→21:37)
--- NOTE | 2019-03-20 09:32 | P.PN ---
Subjective Progress Note Date: 03/20/19 On today's evaluation of 03/18/2019 the patient is resting comfortably in bed. He is weak. His oral intake is quite diminished and minimal. As mentioned earlier, he has triple-vessel coronary artery disease with critical lesion involving the RCA at multiple sites also critical lesion in the circumflex which is a nondominant vessel. LAD has moderate disease. Note that the patient also had an echocardiogram that showed dilated LA, dilated RV, severe pulmonary hypertension, moderate MR, ejection fraction of 35-40%. His LVEDP on the cath was 16. The patient also had runs of a febrile currently on oral amiodarone on his cardiac rhythm is sinus. Chest x-ray still showing better pleural effusion along with cardiomegaly. There is a smoker. Says spirometry showed an FEV1 of 52%. Urine output is noted of 5200 disease an hour. He is on by mouth Lasix. He has bladder cancer. He has undergone previous transurethral resection of bladder lesions in addition to intravesicular chemotherapy. He has chronic stage III kidney disease related to polycystic kidneys. Being evaluated for bypass surgery. IAN is in progress. on 03/19/2019 I'm seeing the patient for a follow-up. The patient became progressively worse overnight. He developed abdominal distention and firmness throughout his abdomen and at that point a [place] the abdomen was done that showed ileus and distention of the bowels. Based on that, an NG tube was inserted and a total of 550 mL of gastric dark material was aspirated overnight. This morning, his abdomen is still slightly distended and tense although somewhat improved compared to yesterday. Lactic acid level was at 1.5. No emesis. No bowel movements. He has not passed any Lantus. Bowel sounds are also absent. There is some mild direct tenderness throughout his abdomen. No rebound tenderness. No guarding. Hemodynamically, he is afebrile. No sig nificant tachycardia. He is on 5 L of oxygen by nasal cannula and his pulse ox is around 99%. His chest x-ray from yesterday showed improvement in pulmonary edema and there was some still perihilar fullness and congestion. A IAN was done yesterday and the patient was found to have +2 mitral regurgitation in addition to an ejection fraction of 40-45%.the patient has multivessel coronary artery disease. He was being considered for bypass surgery and the surgery is currently on hold. He remains on IV heparin. Hemoglobin is stable.He was being considered for bypass surgery. Surgery is currently on hold. He remains on IV heparin. Hemoglobin remains stable. He is a smoker. His FEV1 is 52% of predicted. He is currently on oral Lasix which is on hold. Diabetic medication and also on hold. He has history of bladder cancer. He has undergone transurethral resection of the bladder lesion in the past. He has stage III kidney disease related to polycystic kidneys.. On 03/20/2019 patient is still in the intensive care unit. NG tube is in place and output has been in the order of 2 L over the past 24 hours. Kam catheter is in place and has a adequate urine output. CAT scan of the abdomen that was done yesterday showed her was no clear-cut a transition point yet there was di lated ileal loops consistent with small bowel ileus versus small bowel obstruction. NG tube was in place. The stomach was not dilated. Duodenal sweep was not dilated. There was gradual increase in prominence of fluid filled loops and most of the abnormality was in the distal ileum with evidence of air- fluid levels. There is a gradual transition into less prominent distal ileal loops in the right mid abdominal area with the terminal ileum being unremarkable. Fecal material was seen in the rectal area and there was evidence of sigmoid diverticulosis without diverticulitis. This is consistent with small bowel ileus mainly in the area of the ileum. NG tube is still in place. Output is considerably high. Overnight the patient went into A. fib RVR. He is known to have paroxysmal atrial fibrillation. He was placed on Cardizem drip which is still running at 7.5 mg without any significant control of his heart rate. On amiodarone at a rate of 0.5 g per minute. He is started on IV heparin drip. Abdomen is quite tender diffuse and the lactic acid level was 1.8 from yesterday. Note that the CAT scan of the abdomen also showed bilateral pleural effusions. The patient is not receiving any IV fluids for now. His EF based on the most recent IAN was in order of 40-45%. He is awake and alert. Lasix is on hold. A sliding-scale coverage for blood sugar control. No fever. No altered mentation. No chest pain. Objective - Vital Signs Vital signs: Vital Signs Temp 98.1 F 03/20/19 04:00 Pulse 131 H 03/20/19 09:00 Resp 20 03/20/19 09:00 BP 122/106 03/20/19 09:00 Pulse Ox 93 L 03/20/19 09:00 Intake & Output 03/19/19 03/20/19 03/20/19 18:59 06:59 18:59 Intake Total 427.322 897.674 20 Output Total 1960 812 135 Balance -1532.678 85.674 -115 Weight 68.1 kg Intake: IV 340 540 20 .9 240 240 20 Dextrose 5% in Water 100 100 ml @ 618 mls/hr IV .Q10M ONE with Amiodarone 150 mg Rx#:[id number] Piperacillin-Tazobactam 3 100 200 .375 gm In Sodium Chloride 0.9% 100 ml @ 25 mls/hr IVPB Q8H [facility] Rx#: [id number] Intake, IV Titration 87.322 357.674 Amount Amiodarone 300 mg In 237.5 Dextrose 5% in Water 250 ml @ 0.5 MG/MIN 25 mls/hr IV .Q10H [facility] Rx#: [id number] Heparin Sod,Pork in 0.45% 87.322 120.174 NaCl 25,000 unit In 0.45 % NaCl 1 250ml.bag @ 24.6 UNITS/KG/HR 17.122 mls/ hr IV .[id number] [facility] Rx#: [id number] Output: Gastric Drainage 1450 500 100 Urine 510 312 35 Other: Voiding Method Indwelling Catheter Indwelling Catheter - Exam Gen. appearance the patient is a mild degree of respiratory distress. currently is on 6 L of oxygen by nasal cannula. Head exam was generally normal. There was no scleral icterus or corneal arcus. Mucous membranes were moist. Neck was supple and without jugular venous distension, thyromegaly, or carotid bruits. Carotids were easily palpable bilaterally. There was no adenopathy. Lungs sounds are diminished bilaterally along with scattered expiratory wheezes throughout the lung his bilaterally. Heart sounds are distant. Otherwise, Cardiac exam revealed the PMI to be normally situated and sized. The rhythm was regular and no extrasystoles were noted during several minutes of auscultation. The first and second heart sounds were normal and physiologic splitting of the second heart sound was noted. There were no murmurs, rubs, clicks, or gallops. Abdominal exam revealed normal bowel sounds. The abdomen distended and there is some mild direct tenderness. No rebound tenderness. No guarding. No organomegaly. No ascites. Bowel sounds are markedly diminished. The abdomen remains tender all over. Examination of the extremities revealed easily palpable radial, femoral and pedal pulses. There was no cyanosis, clubbing or edema. Examination of the skin revealed no evidence of significant rashes, suspicious appearing nevi or other concerning lesions. Neurologically awake and alert there is no focal logical deficits. - Labs CBC & Chem 7: 03/20/19 04:08 03/20/19 04:08 Labs: Abnormal Lab Results - Last 24 Hours (Table) 03/19/19 03/19/19 03/19/19 Range/Units 11:50 13:46 15:55 WBC (3.8-10.6) k/uL Neutrophils # (Manual) (1.3-7.7) k/uL Lymphocytes # (Manual) (1.0-4.8) k/uL Monocytes # (Manual) (0-1.0) k/uL APTT 138.7 H* (22.0-30.0) sec Sodium (137-145) mmol/L Chloride (98-107) mmol/L BUN (9-20) mg/dL Creatinine (0.66-1.25) mg/dL Glucose (74-99) mg/dL POC Glucose (mg/dL) 288 H 210 H (75-99) mg/dL 03/19/19 03/19/19 03/19/19 Range/Units 18:28 20:18 21:55 WBC (3.8-10.6) k/uL Neutrophils # (Manual) (1.3-7.7) k/uL Lymphocytes # (Manual) (1.0-4.8) k/uL Monocytes # (Manual) (0-1.0) k/uL APTT 86.1 H (22.0-30.0) sec Sodium (137-145) mmol/L Chloride (98-107) mmol/L BUN (9-20) mg/dL Creatinine (0.66-1.25) mg/dL Glucose (74-99) mg/dL POC Glucose (mg/dL) 136 H 101 H (75-99) mg/dL 03/19/19 03/20/19 03/20/19 Range/Units 23:47 00:00 04:00 WBC (3.8-10.6) k/uL Neutrophils # (Manual) (1.3-7.7) k/uL Lymphocytes # (Manual) (1.0-4.8) k/uL Monocytes # (Manual) (0-1.0) k/uL APTT (22.0-30.0) sec Sodium (137-145) mmol/L Chloride (98-107) mmol/L BUN (9-20) mg/dL Creatinine (0.66-1.25) mg/dL Glucose (74-99) mg/dL POC Glucose (mg/dL) 183 H 204 H 236 H (75-99) mg/dL 03/20/19 03/20/19 03/20/19 Range/Units 04:08 04:08 04:08 WBC 12.8 H (3.8-10.6) k/uL Neutrophils # (Manual) 11.00 H (1.3-7.7) k/uL Lymphocytes # (Manual) 0.38 L (1.0-4.8) k/uL Monocytes # (Manual) 1.28 H (0-1.0) k/uL APTT 72.7 H (22.0-30.0) sec Sodium 135 L (137-145) mmol/L Chloride 92 L (98-107) mmol/L BUN 55 H (9-20) mg/dL Creatinine 2.26 H (0.66-1.25) mg/dL Glucose 235 H (74-99) mg/dL POC Glucose (mg/dL) (75-99) mg/dL Microbiology - Last 24 Hours (Table) 03/14/19 08:48 Blood Culture - Preliminary Blood No Growth after 120 hours Assessment and Plan Plan: 1 severe multivessel coronary artery disease, post non-STEMI and the patient is being considered for cardiac revascularization surgery. The patient has COPD. The patient has CHF. Ejection fraction was around 35-40% and he has severe pulmonary hypertension with elevated left ventricular end-diastolic pressure in addition to bilateral pleural effusions. His blood chronic kidney disease related to polycystic kidney and all these comorbidities will put him at an incr eased risk of postoperative complications following bypass/open heart surgery. His risk score is to the calculated by the cardiothoracic team. Currently is free of any chest pain.the subsequent IAN showed improved ejection fraction of 40-45%, +2 mitral regurgitation 2 paroxysmal atrial fibrillation current rhythm is sinus on amiodarone currently on IV heparin and overnight the patient went into A. fib with RVR. Currently is on amiodarone drip at 0.5 g per minute and addition to Cardizem drip at 7.5 mg an hour. He remains quite tachycardic. 3 severe pulmonary hypertension with possible mitral regurgitation moderate to severe, 4 acute abdominal distention and pain with diffuse ileus, post NG tube insertion. The CAT scan of the abdomen is consistent with small bowel obstruction. He remains nothing by mouth. Output from the NG remains quite high. No flatus. General surgeries on the case. 5 hyperlipidemia 6 diabetes mellitus, currently on signs given coverage 7 chronic stage III kidney failure, with a component of acute kidney injury secondary to intravascular volume depletion 8 COPD with history of chronic smoking 9 polycystic kidney disease 10 history of bladder cancer post-transurethral resection followed by intravesicular chemotherapy 11 diminished oral intake, currently on Ensure 12 acute hypoxic respiratory failure currently on 5 L of oxygen by nasal cannula 13 carotid artery stenosis , plaque with stenosis bilaterally left more than right 14 hypertension plan Keep nothing by mouth Keep NG tube Monitor lactic acid level General surgeries on the case IV fluids at the rate of 100 disease and hour of normal saline Monitor urine output and creatinine Continue amiodarone drip and IV heparin and Cardizem drip and as IV Lopressor 5 mg every 4 hours for rate control Echo was noted. IAN was noted. No plans for cardiac surgery special with ongoing issues and comorbidities CAT scan of the abdomen was noted. There is small bowel dilatation of the level of the ileum. Condition is critical. Comorbidities are quite extensive especially with tripl e-vessel coronary artery disease, congestion heart failure and bowel obstruction. We'll continue to follow. Time with Patient: Greater than 30
[2019-03-20] MEDS: FENOFIBRATE 160 MG TAB PO SCH (09:36)
[2019-03-20] MEDS: ASPIRIN 81 MG PO SCH (09:36)
[2019-03-20] MEDS: hydrALAZINE HCL 50 MG TAB PO SCH (09:37)
[2019-03-20] MEDS: LISINOPRIL 10 MG TAB PO SCH (09:37)
[2019-03-20] MEDS: LINAGLIPTIN 5 MG TABLET PO SCH (09:37)
[2019-03-20] MEDS: ISOSORBIDE MONONITRATE ER 30 MG TAB.ER.24H PO SCH (09:37)
[2019-03-20 09:40] LABS: Glucose,Whole Blood 297 mg/dL (75-99)
[2019-03-20] MEDS ORDERED: INSULIN REGULAR BOLUS (FROM DRIP BAG) IV PRN (09:41)
[2019-03-20] MEDS: METOPROLOL TARTRATE 5 MG/5 ML VIAL IVP PRN ×3 (09:48→23:32)
[2019-03-20] MEDS: HYDROmorphone 1 MG/ML 1 ML SYRINGE IVP PRN ×3 (09:50→22:10)
[2019-03-20] MEDS: ONDANSETRON 4 MG/2 ML VIAL IVP PRN (09:51)
[2019-03-20] MEDS: INSULIN REGULAR 100 UNIT in SODIUM CHLORIDE 0.9% 100 ML IV SCH (10:10)
--- NOTE | 2019-03-20 10:26 | CDI ---
Documentation Clarification Form Date: 03/20/2019 10:08:56 AM From: Airam ScottAlasKHRIS, CCDS Admit Date: 03/14/2019 11:11:00 AM Patient Name: Irving Camacho Visit Number: [id number] Discharge Date: ATTENTION: The Clinical Documentation Specialists (CDI) and [facility] Coding Staff appreciate your assistance in clarifying documentation. Please respond to the clarification below the line at the bottom and electronically sign. The CDI & [facility] Coding staff will review the response and follow-up if needed. Please note: Queries are made part of the Legal Health Record. If you have any questions, please contact the author of this message via ITS. Dr. Paxton Orlando: The patient presented with the following: Triple-vessel coronary artery disease, non-STEMI this admission. Per the 03/19 General Surgery consult: "Small bowel obstruction, suspect ischemic bowel." History/Risk Factors: CAD, Previous MIs x2, Hypertension, CKD IV, Bladder cancer, Paroxysmal Atrial Fibrillation, DM II, Current smoker. Clinical Indicators: Admitted with non-STEMI due to CAD, found to have triple vessel disease, needs to have coronary artery bypass but postponed due to unstable medical conditions. Found to have an ileus or SBO on CT abdomen/pelvis (03/19), documented by surgeon as "suspect ischemic bowel" not clarified if acute or chronic. Radiology findings: CT abdomen/pelvis: "IMPRESSION: 1. New distal small bowel obstruction without distinct transition point clearly seen as detailed above. 2. New moderate wall thickening and bladder, correlate clinically for acute cystitis otherwise other etiologies need to be considered. Wall thickening is fairly circumferential making neoplasm less likely but cannot be excluded in patient with history of bladder cancer. 3. Small to borderline moderate-sized bilateral pleural effusions partially imaged. Increase in size from prior. 4. Perhaps focal inflammatory change or contusion injury anterior right thigh, correlate clinically." Treatment: NGT placed 03/19, IV Cardizem drip for paroxysmal atrial fibrillation, IV Heparin drip, IV Insulin, IV Lopressor, IV Dextrose/Water, IV Amiodarone. IV Zosyn, IV Dilaudid, IV MagSulfate, 03/13 Heart catheterization, FFR. In your professional opinion, can you please clarify the acuity of the ischemic bowel? Ischemic bowel ruled out Ischemic bowel ruled in: o Acute o Chronic o Other, please specify o Unable to determine (Last Revision: July 2017) patient with acute ischemic bowel present related to low flow MTDD
[2019-03-20 10:33] LABS: Glucose,Whole Blood 268 mg/dL (75-99)
[2019-03-20 11:20] LABS: Glucose,Whole Blood 252 mg/dL (75-99)
[2019-03-20] MEDS ORDERED: ESMOLOL IN SODIUM CHLORIDE PMX 2.5 GM in SALINE 1 250ML.BAG IV SCH (11:30)
[2019-03-20 11:53] LABS: Glucose,Whole Blood 211 mg/dL (75-99)
--- NOTE | 2019-03-20 12:33 | PN ---
PROGRESS NOTE This patient's electronic medical records and the event over the last 24 hours reviewed. Patient's condition also discussed with the nurse taking care of the patient. This patient continues to have moderate to severe degree of abdominal pain and the NG tube is draining about 2 L of fluid over the last 24 hours. Patient went back into the atrial fibrillation last night and he is still atrial flutter- fibrillation last night and is still remains tachycardic. Blood pressure is 98/50 mmHg. First and second heart sounds are heard. Lung examinations are fairly clear to auscultation and percussion. Patient's chest x-ray shows changes of congestive heart failure have resolved. ASSESSMENT AND PLAN: This patient's hopefully small bowel ileus ischemic bowel cannot be entirely excluded. His lactic acid remains level normal. There is no overt heart failure. However, patient remains in atrial flutter fibrillation with a rapid ventricular response. We will discontinue the Cardizem drip and try patient on block if the blood pressure permits. We will discontinue the Zestril at present. Continue IV heparin. We will hold the hydralazine and lisinopril at present. MMODL / IJN: [id number] /
[2019-03-20] MEDS: SODIUM CHLORIDE 0.9% 1,000 ML IV SCH ×2 (12:37→22:02)
--- NOTE | 2019-03-20 13:24 | P.PN ---
Subjective Progress Note Date: 03/20/19 CHIEF COMPLAINT: abdominal pain HISTORY OF PRESENT ILLNESS: Patient examined at the bedside with Dr. Hayes. Patient remains in intensive care unit. He continues to report abdominal pain. NG tube with brown bloody drainage. Nursing reports 700 mL overnight. Patient is receiving IV Dilaudid for pain control. WBC slightly increased to 12.8 today. He remains on IV Zosyn. PHYSICAL EXAM: VITAL SIGNS: Reviewed. GENERAL: Well-developed in no acute distress. HEENT: No sclera icterus. Extraocular movements grossly intact. Moist buccal mucosa. Head is atraumatic, normocephalic. ABDOMEN: Distended. Diffuse abdominal tenderness. Positive rebound tenderness. NEUROLOGIC: Alert and oriented. Cranial nerves II through XII grossly intact. ASSESSMENT: 1. Abdominal pain 2. Small bowel obstruction, suspect ischemic bowel PLAN: Continue NG tube to low intermittent suction. Continue heparin drip. Monitor hemoglobin as gastric contents appear to be blood tinged Continue Zosyn IV every 8 hours Dilaudid IVP every 3 hours as needed for pain No surgical intervention recommended at this time. Will continue with conservative management at this time. Patient is very high risk for surgical intervention. Nurse practitioner note has been reviewed by physician. Signing provider agrees with the documented findings, assessment, and plan of care. Objective - Vital Signs Vital signs: Vital Signs Temp 97.1 F L 03/20/19 12:30 Pulse 128 H 03/20/19 12:30 Resp 18 03/20/19 12:30 BP 102/50 03/20/19 12:30 Pulse Ox 95 03/20/19 12:30 Intake & Output 03/19/19 03/20/19 03/20/19 18:59 06:59 18:59 Intake Total 427.322 897.674 852.272 Output Total 1960 812 555 Balance -1532.678 85.674 297.272 Weight 68.1 kg Intake: IV 340 540 840 .9 240 240 740 Dextrose 5% in Water 100 100 ml @ 618 mls/hr IV .Q10M ONE with Amiodarone 150 mg Rx#:[id number] Piperacillin-Tazobactam 3 100 200 100 .375 gm In Sodium Chloride 0.9% 100 ml @ 25 mls/hr IVPB Q8H [facility] Rx#: [id number] Intake, IV Titration 87.322 357.674 12.272 Amount Amiodarone 300 mg In 237.5 Dextrose 5% in Water 250 ml @ 0.5 MG/MIN 25 mls/hr IV .Q10H [facility] Rx#: [id number] Heparin Sod,Pork in 0.45% 87.322 120.174 NaCl 25,000 unit In 0.45 % NaCl 1 250ml.bag @ 24.6 UNITS/KG/HR 17.122 mls/ hr IV .[id number] [facility] Rx#: [id number] Insulin Regular 100 unit 12.272 In Sodium Chloride 0.9% 100 ml @ Per Protocol IV .Q0M [facility] Rx#:[id number] Output: Gastric Drainage 1450 500 400 Urine 510 312 155 Other: Voiding Method Indwelling Catheter Indwelling Catheter Indwelling Catheter - Labs CBC & Chem 7: 03/20/19 04:08 03/20/19 04:08 Labs: Abnormal Lab Results - Last 24 Hours (Table) 03/19/19 03/19/19 03/19/19 Range/Units 13:46 15:55 18:28 WBC (3.8-10.6) k/uL Neutrophils # (Manual) (1.3-7.7) k/uL Lymphocytes # (Manual) (1.0-4.8) k/uL Monocytes # (Manual) (0-1.0) k/uL APTT 138.7 H* (22.0-30.0) sec Sodium (137-145) mmol/L Chloride (98-107) mmol/L BUN (9-20) mg/dL Creatinine (0.66-1.25) mg/dL Glucose (74-99) mg/dL POC Glucose (mg/dL) 210 H 136 H (75-99) mg/dL 03/19/19 03/19/19 03/19/19 Range/Units 20:18 21:55 23:47 WBC (3.8-10.6) k/uL Neutrophils # (Manual) (1.3-7.7) k/uL Lymphocytes # (Manual) (1.0-4.8) k/uL Monocytes # (Manual) (0-1.0) k/uL APTT 86.1 H (22.0-30.0) sec Sodium (137-145) mmol/L Chloride (98-107) mmol/L BUN (9-20) mg/dL Creatinine (0.66-1.25) mg/dL Glucose (74-99) mg/dL POC Glucose (mg/dL) 101 H 183 H (75-99) mg/dL 03/20/19 03/20/19 03/20/19 Range/Units 00:00 04:00 04:08 WBC 12.8 H (3.8-10.6) k/uL Neutrophils # (Manual) 11.00 H (1.3-7.7) k/uL Lymphocytes # (Manual) 0.38 L (1.0-4.8) k/uL Monocytes # (Manual) 1.28 H (0-1.0) k/uL APTT (22.0-30.0) sec Sodium (137-145) mmol/L Chloride (98-107) mmol/L BUN (9-20) mg/dL Creatinine (0.66-1.25) mg/dL Glucose (74-99) mg/dL POC Glucose (mg/dL) 204 H 236 H (75-99) mg/dL 03/20/19 03/20/19 03/20/19 Range/Units 04:08 04:08 09:39 WBC (3.8-10.6) k/uL Neutrophils # (Manual) (1.3-7.7) k/uL Lymphocytes # (Manual) (1.0-4.8) k/uL Monocytes # (Manual) (0-1.0) k/uL APTT 72.7 H (22.0-30.0) sec Sodium 135 L (137-145) mmol/L Chloride 92 L (98-107) mmol/L BUN 55 H (9-20) mg/dL Creatinine 2.26 H (0.66-1.25) mg/dL Glucose 235 H (74-99) mg/dL POC Glucose (mg/dL) 297 H (75-99) mg/dL 03/20/19 03/20/19 03/20/19 Range/Units 10:32 11:18 11:51 WBC (3.8-10.6) k/uL Neutrophils # (Manual) (1.3-7.7) k/uL Lymphocytes # (Manual) (1.0-4.8) k/uL Monocytes # (Manual) (0-1.0) k/uL APTT (22.0-30.0) sec Sodium (137-145) mmol/L Chloride (98-107) mmol/L BUN (9-20) mg/dL Creatinine (0.66-1.25) mg/dL Glucose (74-99) mg/dL POC Glucose (mg/dL) 268 H 252 H 211 H (75-99) mg/dL Microbiology - Last 24 Hours (Table) 03/14/19 08:48 Blood Culture - Final Blood No Growth after 144 hours
[2019-03-20 14:00] LABS: Glucose,Whole Blood 165 mg/dL (75-99)
[2019-03-20] MEDS ORDERED: SODIUM CHLORIDE 0.9% 1,000 ML IV ONE (14:13)
[2019-03-20] MEDS: HEPARIN SOD,PORK IN 0.45% NACL 25,000 UNIT in 0.45% NACL 1 250ML.BAG IV SCH ×2 (15:00→20:45)
[2019-03-20 15:05] LABS: Glucose,Whole Blood 125 mg/dL (75-99)
--- NOTE | 2019-03-20 15:21 | P.PN ---
Subjective Progress Note Date: 03/20/19 Principal diagnosis: Triple-vessel coronary artery disease, non-STEMI this admission, acute hypoxic respiratory failure requiring initiation of BiPAP, acute systolic heart failure with EF 35-40% on TTE improved to 40-45% on IAN, moderate mitral regurgitation per transesophageal echocardiogram. Previous medical history of coronary artery disease with previous non-STEMI, hypertension, hyperlipidemia, paroxysmal atrial fibrillation on chronic Eliquis for anticoagulation, type 2 diabetes with current hemoglobin A1c 8.9%, left internal carotid artery stenosis 50-69% COPD with FEV1 52% of predicted, current tobacco dependence, chronic kidney disease stage III with polycystic kidney disease, bladder cancer, prostate cancer. Atrial fibrillation with rapid ventricular response. Acute abdominal pain with distention and ileus. The patient is currently laying in bed in the intensive care unit. He continues to complain of abdominal pain with some abdominal distention and abdominal tenderness, although he reports that he feels that the pain is somewhat improved today. Lactic acid drawn yesterday was 1.8. A computed tomography scan of his abdomen was completed yesterday which demonstrated a new distal small bowel obstruction without distinct transition point and small bilateral sized pleural effusions. His NG tube remains in place to low intermittent wall suction and has had over 2 L of output in the last 24 hours. Bedside telemetry showing atrial fibrillation with RVR heart rate 123. He is currently on Cardizem drip at 7.5 mg per hour and amiodarone drip at 0.5 mg per hour. Oxygen saturation's 95% on 6 L nasal cannula and he is achieving 500 mL on his incentive spirometry with much encouragement. He remains hemodynamically stable and is currently on no inotropic or pressor support. Objective - Vital Signs Vital signs: Vital Signs Temp 98.1 F 03/20/19 04:00 Pulse 107 H 03/20/19 10:00 Resp 15 03/20/19 10:00 BP 105/64 03/20/19 10:00 Pulse Ox 93 L 03/20/19 10:00 Intake & Output 03/19/19 03/20/19 03/20/19 18:59 06:59 18:59 Intake Total 427.322 897.674 540 Output Total 1960 812 185 Balance -1532.678 85.674 355 Weight 68.1 kg Intake: IV 340 540 540 .9 240 240 540 Dextrose 5% in Water 100 100 ml @ 618 mls/hr IV .Q10M ONE with Amiodarone 150 mg Rx#:[id number] Piperacillin-Tazobactam 3 100 200 .375 gm In Sodium Chloride 0.9% 100 ml @ 25 mls/hr IVPB Q8H [facility] Rx#: [id number] Intake, IV Titration 87.322 357.674 Amount Amiodarone 300 mg In 237.5 Dextrose 5% in Water 250 ml @ 0.5 MG/MIN 25 mls/hr IV .Q10H [facility] Rx#: [id number] Heparin Sod,Pork in 0.45% 87.322 120.174 NaCl 25,000 unit In 0.45 % NaCl 1 250ml.bag @ 24.6 UNITS/KG/HR 17.122 mls/ hr IV .[id number] [facility] Rx#: [id number] Output: Gastric Drainage 1450 500 100 Urine 510 312 85 Other: Voiding Method Indwelling Catheter Indwelling Catheter - Constitutional General appearance: Present: cooperative, mild distress (with abdominal discomfort) - Respiratory Details: Lungs sounds diminished bilaterally. Respirations symmetrical and nonlabored. Currently on 6 L nasal cannula with oxygen saturation 95%. attending 500 mL on his incentive spirometry. - Cardiovascular Details: Irregular rhythm with a tachycardic rate consistent with atrial fibrillation. Bedside telemetry showing atrial fibrillation with RVR heart rate 123. S1 and S2 present, negative for S3, gallop or murmur. No edema present. - Gastrointestinal Gastrointestinal Comment(s): Abdomen is soft, distended and tender to palpate. Hypoactive bowel sounds p resent to his left lower quadrant. NG tube in place to low intermittent wall suction with over 2 L of output in the last 24 hours. - Genitourinary Genitourinary Comment(s): Kam catheter for accurate I&O. Draining clear zeenat urine. - Integumentary Integumentary Comment(s): skin is warm and dry. No clubbing or cyanosis is present. No rash or abnormal pigmentation is present. - Neurologic Neurologic: Present: CNII-XII intact - Musculoskeletal Musculoskeletal: Present: generalized weakness, strength equal bilaterally - Psychiatric Psychiatric: Present: A&O x's 3, appropriate affect, intact judgment & insight - Allied health notes Allied health notes reviewed: nursing - Labs CBC & Chem 7: 03/20/19 04:08 03/20/19 04:08 Labs: Abnormal Lab Results - Last 24 Hours (Table) 03/19/19 03/19/19 03/19/19 Range/Units 11:50 13:46 15:55 WBC (3.8-10.6) k/uL Neutrophils # (Manual) (1.3-7.7) k/uL Lymphocytes # (Manual) (1.0-4.8) k/uL Monocytes # (Manual) (0-1.0) k/uL APTT 138.7 H* (22.0-30.0) sec Sodium (137-145) mmol/L Chloride (98-107) mmol/L BUN (9-20) mg/dL Creatinine (0.66-1.25) mg/dL Glucose (74-99) mg/dL POC Glucose (mg/dL) 288 H 210 H (75-99) mg/dL 03/19/19 03/19/19 03/19/19 Range/Units 18:28 20:18 21:55 WBC (3.8-10.6) k/uL Neutrophils # (Manual) (1.3-7.7) k/uL Lymphocytes # (Manual) (1.0-4.8) k/uL Monocytes # (Manual) (0-1.0) k/uL APTT 86.1 H (22.0-30.0) sec Sodium (137-145) mmol/L Chloride (98-107) mmol/L BUN (9-20) mg/dL Creatinine (0.66-1.25) mg/dL Glucose (74-99) mg/dL POC Glucose (mg/dL) 136 H 101 H (75-99) mg/dL 03/19/19 03/20/19 03/20/19 Range/Units 23:47 00:00 04:00 WBC (3.8-10.6) k/uL Neutrophils # (Manual) (1.3-7.7) k/uL Lymphocytes # (Manual) (1.0-4.8) k/uL Monocytes # (Manual) (0-1.0) k/uL APTT (22.0-30.0) sec Sodium (137-145) mmol/L Chloride (98-107) mmol/L BUN (9-20) mg/dL Creatinine (0.66-1.25) mg/dL Glucose (74-99) mg/dL POC Glucose (mg/dL) 183 H 204 H 236 H (75-99) mg/dL 03/20/19 03/20/19 03/20/19 Range/Units 04:08 04:08 04:08 WBC 12.8 H (3.8-10.6) k/uL Neutrophils # (Manual) 11.00 H (1.3-7.7) k/uL Lymphocytes # (Manual) 0.38 L (1.0-4.8) k/uL Monocytes # (Manual) 1.28 H (0-1.0) k/uL APTT 72.7 H (22.0-30.0) sec Sodium 135 L (137-145) mmol/L Chloride 92 L (98-107) mmol/L BUN 55 H (9-20) mg/dL Creatinine 2.26 H (0.66-1.25) mg/dL Glucose 235 H (74-99) mg/dL POC Glucose (mg/dL) (75-99) mg/dL 03/20/19 03/20/19 Range/Units 09:39 10:32 WBC (3.8-10.6) k/uL Neutrophils # (Manual) (1.3-7.7) k/uL Lymphocytes # (Manual) (1.0-4.8) k/uL Monocytes # (Manual) (0-1.0) k/uL APTT (22.0-30.0) sec Sodium (137-145) mmol/L Chloride (98-107) mmol/L BUN (9-20) mg/dL Creatinine (0.66-1.25) mg/dL Glucose (74-99) mg/dL POC Glucose (mg/dL) 297 H 268 H (75-99) mg/dL Microbiology - Last 24 Hours (Table) 03/14/19 08:48 Blood Culture - Preliminary Blood No Growth after 120 hours - Imaging and Cardiology Chest x-ray: report reviewed, image reviewed Assessment and Plan Assessment: 1. Triple-vessel coronary artery disease, non-STEMI this admission 2. Acute hypoxic respiratory failure requiring initiation of BiPAP 3. Acute systolic heart failure with EF 35-40% on TTE, 40-45% on IAN 4. Moderate mitral valve regurgitation per transesophageal echocardiogram 5. History of coronary artery disease with previous non-STEMI 6. Left internal carotid stenosis 50-69% 7. Hypertension 8. Hyperlipidemia 9. Paroxysmal atrial fibrillation on chronic Eliquis, last dose 03/11/2019 10. Type 2 diabeteswith current hemoglobin A1c 8.9% 11. Current tobacco dependence 12. COPD with FEV1 52% of predicted 13. Chronic kidney disease stage III with polycystic kidney disease 14. History of bladder cancer 15. Prostate cancer 16. Acute abdominal pain with ileus Plan: 1. Continue to maximize medical therapy with aspirin, statin, beta luisa and KILLIAN inhibitor. Continue to hold Eliquis. 2. Continue to wean O2 as tolerated. Bronchodilators per pulmonology. Encourage use of his incentive spirometry every hour while awake. 3. Patient needs coronary artery bypass surgery plus left atrial appendage ligation, timing to be determined, needs to have current active issues resolved first for safety of the patient as he is considered high risk for surgical intervention at this time. 4. General surgery following and have recommended conservative management at this time. 5. atrial fibrillation management per cardiology recommendations. Currently on heparin, Cardizem and amiodarone drip. 6. GI/DVT prophylaxis. 7. Continue medical management per primary care servicerecommendations. 8. More recommendations to follow based on patient's clinical course. Time with Patient: Greater than 30
[2019-03-20 16:00] LABS: Glucose,Whole Blood 125 mg/dL (75-99)
[2019-03-20 17:23] LABS: Glucose,Whole Blood 142 mg/dL (75-99)
[2019-03-20 18:18] LABS: Glucose,Whole Blood 168 mg/dL (75-99)
[2019-03-20 19:06] LABS: Glucose,Whole Blood 158 mg/dL (75-99)
[2019-03-20] MEDS: ATORVASTATIN 80 MG TAB PO SCH (19:49)
[2019-03-20 20:06] LABS: Glucose,Whole Blood 148 mg/dL (75-99)
[2019-03-20 20:13] LABS: Glucose,Whole Blood 133 mg/dL (75-99)
[2019-03-20 20:58] LABS: Glucose,Whole Blood 123 mg/dL (75-99)
[2019-03-20 21:58] LABS: Glucose,Whole Blood 113 mg/dL (75-99)
[2019-03-20] MEDS: METOPROLOL TARTRATE 50 MG TAB PO SCH (22:48)
[2019-03-20] MEDS: AMIODARONE 200 MG TAB PO SCH (22:48)
[2019-03-20 23:13] LABS: Glucose,Whole Blood 128 mg/dL (75-99)
[2019-03-21 01:01] LABS: Glucose,Whole Blood 119 mg/dL (75-99)
[2019-03-21] MEDS: HYDROmorphone 1 MG/ML 1 ML SYRINGE IVP PRN ×3 (02:28→18:21)
[2019-03-21 03:10] LABS: Glucose,Whole Blood 120 mg/dL (75-99)
[2019-03-21] MEDS: METOPROLOL TARTRATE 5 MG/5 ML VIAL IVP PRN ×2 (04:20→23:33)
[2019-03-21] MEDS: PIPERACILLIN-TAZOBACTAM 3.375 GM in SODIUM CHLORIDE 0.9% 100 ML IVPB SCH ×3 (04:56→20:55)
[2019-03-21] MEDS: SODIUM CHLORIDE 0.9% 1,000 ML IV SCH ×2 (04:57→20:55)
[2019-03-21 05:28] LABS: Basophils # (A) 0.1 k/uL (0-0.2); Basophils % (A) 1 %; Eosinophils # (A) 0.1 k/uL (0-0.7); Eosinophils % (A) 1 %; HGB 11.3 gm/dL (13.0-17.5); Lymphocytes # (A) 0.4 k/uL (1.0-4.8); Lymphocytes % (A) 2 %; MCH 27.4 pg (25.0-35.0); MCHC 31.4 g/dL (31.0-37.0); MCV 87.2 fL (80.0-100.0); Mean Platelet Volume 8.9; Monocytes # (A) 1.1 k/uL (0-1.0); Monocytes % (A) 7 %; Neutrophils # (A) 15.2 k/uL (1.3-7.7); Neutrophils % (A) 89 %; Platelet Count 222 k/uL (150-450); RBC 4.12 m/uL (4.30-5.90); RDW 14.9 % (11.5-15.5); WBC 17.1 k/uL (3.8-10.6)
[2019-03-21 05:36] LABS: Glucose,Whole Blood 137 mg/dL (75-99)
[2019-03-21 05:57] LABS: Calcium 7.8 mg/dL (8.4-10.2); Potassium 3.7 mmol/L (3.5-5.1)
[2019-03-21] MEDS: BUDESONIDE 1 MG/2 ML NEBU INHALATION SCH ×2 (07:40→19:19)
[2019-03-21] MEDS: IPRATROPIUM-ALBUTEROL 3 ML NEB INHALATION SCH ×4 (07:40→19:19)
[2019-03-21] MEDS: FORMOTEROL FUMARATE 20 MCG/2 ML NEBU INHALATION SCH ×2 (07:40→19:19)
[2019-03-21 07:57] LABS: Glucose,Whole Blood 157 mg/dL (75-99)
[2019-03-21] MEDS: FENOFIBRATE 160 MG TAB PO SCH (08:26)
[2019-03-21] MEDS: ASPIRIN 81 MG PO SCH (08:26)
[2019-03-21] MEDS: PANTOPRAZOLE 40 MG/10 ML VIAL IVP SCH (08:33)
--- NOTE | 2019-03-21 09:17 | CDI ---
Documentation Clarification Form Date: 03/21/2019 08:55:01 AM From: Airam ScottAlasKHRIS orourke, CCDS Admit Date: 03/14/2019 11:11:00 AM Patient Name: Irving Camacho Visit Number: [id number] Discharge Date: ATTENTION: The Clinical Documentation Specialists (CDI) and [facility] Coding Staff appreciate your assistance in clarifying documentation. Please respond to the clarification below the line at the bottom and electronically sign. The CDI & [facility] Coding staff will review the response and follow-up if needed. Please note: Queries are made part of the Legal Health Record. If you have any questions, please contact the author of this message via ITS. Dr. Kika Fuentes: Atrial Flutter is documented in the 03/20 cardiology PN: "Patient went back into the atrial fibrillation last night and he is still atrial flutter- fibrillation last night and is still remains tachycardic." History/Risk factors: COPD, previous NSTEMI, CAD: triple vessel per 03/13 heart cath, Hypertension, Hyperlipidemia, DM, CKD III, Polycystic kidney disease, heavy smoker, Bladder & Prostate cancer. Clinical Indicators: Presented for elective heart catheterization for medical clearance for prostate surgery, found to have triple vessel disease, surgery postponed for further workup of CAD, developed acute hypoxic respiratory failure, transferred to ICU, remains in ICU with possible fluid overload & found to have bilateral pleural effusions. Heart rate: 81 03/14; 64 - 100 /; 140 - 63 /14; 63 - 86 /15; 86 - 146 /16; 84 - 112 12.17; 91 - 140 03/20 EKG 03/14: R 83 nsr, possible left atrial enlargement, ST abnormality. IAN 03/18: EF 40-45%, 2+ MR, mild TR, diffuse atherosclerotic plaque in descending thoracic aorta, small pericardial effusion. Treatment: IV Lasix, INH Symbicort & Albuterol, po Norvasc, IV Heparin drip, IV Zofran, IV Mag Sulfate, po KCL, IV Cardizem, IV Dextrose w/Amiodarone, Habitrol patch, IV Apresoline, Insulin sq, IV Zosyn, O2 2 - 7L nc, advanced to BiPAP, currently high flow 8L In your professional opinion, in order to capture the severity of condition; can you please clarify the type of Atrial Flutter if known? Atrial Flutter ruled out Atrial Flutter ruled in: o Typical/Type I o Atypical/Type II o Other, please specify o Unable to determine (Last Revision: July 2017) MTDD
[2019-03-21] MEDS ORDERED: AMIODARONE 360 MG in DEXTROSE 5% IN WATER 200 ML IV ONE ×4 (10:04→19:17)
--- NOTE | 2019-03-21 10:44 | XR ---
EXAMINATION TYPE: XR chest 1V portable DATE OF EXAM: 03/21/2019 COMPARISON: 03/20/2019 HISTORY: Shortness of breath TECHNIQUE: Single frontal view of the chest is obtained. FINDINGS: Bibasilar opacities are again seen, slightly increased on the right in comparison the prio r and similar on the left. Small bilateral layering pleural effusions are seen. Lung apices are well aerated. Enteric tube has its fenestrated portion just beyond the gastroesophageal junction. Cardia m ediastinal silhouette is enlarged. Diffuse osseous demineralization is seen. Lower lung volumes on th e prior. IMPRESSION: Small bilateral pleural effusions and associated bibasilar airspace disease, slightly in creased on the right from the prior. Airspace disease likely represents atelectasis although underlyi ng pneumonia is possible.
--- NOTE | 2019-03-21 10:57 | P.PN ---
Subjective Progress Note Date: 03/21/19 Principal diagnosis: Triple-vessel coronary artery disease, non-STEMI this admission, acute hypoxic respiratory failure requiring initiation of BiPAP, acute systolic heart failure with EF 35-40% on TTE improved to 40-45% on IAN, moderate mitral regurgitation per transesophageal echocardiogram. Previous medical history of coronary artery disease with previous non-STEMI, hypertension, hyperlipidemia, paroxysmal atrial fibrillation on chronic Eliquis for anticoagulation, type 2 diabetes with current hemoglobin A1c 8.9%, left internal carotid artery stenosis 50-69% COPD with FEV1 52% of predicted, current tobacco dependence, chronic kidney disease stage III with polycystic kidney disease, bladder cancer, prostate cancer. Atrial fibrillation with rapid ventricular response. Acute abdominal pain with distention and ileus. The patient is currently laying in bed in the intensive care unit. He denies any complaints of shortness of breath and reports his abdominal pain feels better today, although he does have some tenderness with palpation of his abdomen. Lactic acid drawn yesterday was 2.8 and a repeat lactic acid level was 1.9 later in the afternoon. His NG tube remains in place to low intermittent wall suction and has had 2 L of output in the last 24 hours and 800 mL of output in the last 8 hours. Bedside telemetry showing atrial fibrillation with RVR heart rate 114 BPM. He is currently on esmolol drip at 25 mcg/kg/m, amiodarone drip at 0.5 mg per hour and heparin drip per protocol. Oxygen saturation's 92% on 10 L high flow nasal cannula and he is achieving 500 mL on his incentive spirometry with much encouragement. He remains hemodynamically stable and is currently on no inotropic or pressor support. His bedside nurse reports that his has been having episodes of confusion throughout the night, he is alert and oriented 3 at this time. Objective - Vital Signs Vital signs: Vital Signs Temp 98.2 F 03/21/19 04:00 Pulse 110 H 03/21/19 07:00 Resp 16 03/21/19 07:00 BP 99/80 03/21/19 07:00 Pulse Ox 94 L 03/21/19 07:00 Intake & Output 03/20/19 03/21/19 03/21/19 18:59 06:59 18:59 Intake Total 2574.098 1941.929 Output Total 685 1185 Balance 1889.098 756.929 Weight 68 kg Intake: IV 2340 1500 .9 2240 1300 Piperacillin-Tazobactam 3 100 200 .375 gm In Sodium Chloride 0.9% 100 ml @ 25 mls/hr IVPB Q8H [facility] Rx#: [id number] Intake, IV Titration 234.098 441.929 Amount Amiodarone 300 mg In 230 Dextrose 5% in Water 250 ml @ 0.5 MG/MIN 25 mls/hr IV .Q10H [facility] Rx#: [id number] Heparin Sod,Pork in 0.45% 207.358 208.041 NaCl 25,000 unit In 0.45 % NaCl 1 250ml.bag @ 24.6 UNITS/KG/HR 17.122 mls/ hr IV .[id number] [facility] Rx#: [id number] Insulin Regular 100 unit 26.740 3.888 In Sodium Chloride 0.9% 100 ml @ Per Protocol IV .Q0M [facility] Rx#:[id number] Output: Gastric Drainage 400 800 Urine 285 385 Other: Voiding Method Indwelling Catheter Indwelling Catheter - Constitutional General appearance: Present: cooperative, no acute distress - Respiratory Details: lung sounds are essentially clear to his bilateral upper lobes, diminished to his bilateral bases. Respirations are symmetrical and nonlabored. Oxygen saturation are 92% on 10 L high flow nasal cannula. Achieving 500 mL on his incentive spirometry. - Cardiovascular Details: Irregular rhythm and tachycardic rate consistent with atrial fibrillation. S1 and S2 present, negative for S3, gallop or murmur. Bedside telemetry showing atrial fibrillation heart rate 114 BPM. No edema present. - Gastrointestinal Gastrointestinal Comment(s): abdomen is soft, tender to palpate, slightly distended. Hypoactive bowel sounds present to his left lower abdominal quadrant. NG tube in place to low intermittent wall suction. - Genitourinary Genitourinary Comment(s): Kam catheter for accurate I&O. Draining clear yellow urine. - Integumentary Integumentary Comment(s): skin is warm and dry. No clubbing or cyanosis is present. No rash or abnormal pigmentation. - Neurologic Neurologic: Present: CNII-XII intact - Musculoskeletal Musculoskeletal: Present: generalized weakness, strength equal bilaterally - Psychiatric Psychiatric Comment(s): flat affect. Psychiatric: Present: A&O x's 3, intact judgment & insight - Allied health notes Allied health notes reviewed: nursing - Labs CBC & Chem 7: 03/21/19 05:13 03/21/19 05:13 Labs: Abnormal Lab Results - Last 24 Hours (Table) 03/20/19 03/20/19 03/20/19 Range/Units 09:39 10:32 11:18 WBC (3.8-10.6) k/uL RBC (4.30-5.90) m/uL Hgb (13.0-17.5) gm/dL Hct (39.0-53.0) % Neutrophils # (1.3-7.7) k/uL Lymphocytes # (1.0-4.8) k/uL Monocytes # (0-1.0) k/uL APTT (22.0-30.0) sec Sodium (137-145) mmol/L BUN (9-20) mg/dL Creatinine (0.66-1.25) mg/dL Glucose (74-99) mg/dL POC Glucose (mg/dL) 297 H 268 H 252 H (75-99) mg/dL Plasma Lactic Acid Perez (0.7-2.0) mmol/L Calcium (8.4-10.2) mg/dL 03/20/19 03/20/19 03/20/19 Range/Units 11:51 13:09 13:58 WBC (3.8-10.6) k/uL RBC (4.30-5.90) m/uL Hgb (13.0-17.5) gm/dL Hct (39.0-53.0) % Neutrophils # (1.3-7.7) k/uL Lymphocytes # (1.0-4.8) k/uL Monocytes # (0-1.0) k/uL APTT (22.0-30.0) sec Sodium (137-145) mmol/L BUN (9-20) mg/dL Creatinine (0.66-1.25) mg/dL Glucose (74-99) mg/dL POC Glucose (mg/dL) 211 H 165 H (75-99) mg/dL Plasma Lactic Acid Perez 2.8 H* (0.7-2.0) mmol/L Calcium (8.4-10.2) mg/dL 03/20/19 03/20/19 03/20/19 Range/Units 15:03 15:58 17:22 WBC (3.8-10.6) k/uL RBC (4.30-5.90) m/uL Hgb (13.0-17.5) gm/dL Hct (39.0-53.0) % Neutrophils # (1.3-7.7) k/uL Lymphocytes # (1.0-4.8) k/uL Monocytes # (0-1.0) k/uL APTT (22.0-30.0) sec Sodium (137-145) mmol/L BUN (9-20) mg/dL Creatinine (0.66-1.25) mg/dL Glucose (74-99) mg/dL POC Glucose (mg/dL) 125 H 125 H 142 H (75-99) mg/dL Plasma Lactic Acid Perez (0.7-2.0) mmol/L Calcium (8.4-10.2) mg/dL 03/20/19 03/20/19 03/20/19 Range/Units 18:17 19:04 20:04 WBC (3.8-10.6) k/uL RBC (4.30-5.90) m/uL Hgb (13.0-17.5) gm/dL Hct (39.0-53.0) % Neutrophils # (1.3-7.7) k/uL Lymphocytes # (1.0-4.8) k/uL Monocytes # (0-1.0) k/uL APTT (22.0-30.0) sec Sodium (137-145) mmol/L BUN (9-20) mg/dL Creatinine (0.66-1.25) mg/dL Glucose (74-99) mg/dL POC Glucose (mg/dL) 168 H 158 H 148 H (75-99) mg/dL Plasma Lactic Acid Perez (0.7-2.0) mmol/L Calcium (8.4-10.2) mg/dL 03/20/19 03/20/19 03/20/19 Range/Units 20:12 20:57 21:57 WBC (3.8-10.6) k/uL RBC (4.30-5.90) m/uL Hgb (13.0-17.5) gm/dL Hct (39.0-53.0) % Neutrophils # (1.3-7.7) k/uL Lymphocytes # (1.0-4.8) k/uL Monocytes # (0-1.0) k/uL APTT (22.0-30.0) sec Sodium (137-145) mmol/L BUN (9-20) mg/dL Creatinine (0.66-1.25) mg/dL Glucose (74-99) mg/dL POC Glucose (mg/dL) 133 H 123 H 113 H (75-99) mg/dL Plasma Lactic Acid Perez (0.7-2.0) mmol/L Calcium (8.4-10.2) mg/dL 03/20/19 03/21/19 03/21/19 Range/Units 23:12 01:00 03:09 WBC (3.8-10.6) k/uL RBC (4.30-5.90) m/uL Hgb (13.0-17.5) gm/dL Hct (39.0-53.0) % Neutrophils # (1.3-7.7) k/uL Lymphocytes # (1.0-4.8) k/uL Monocytes # (0-1.0) k/uL APTT (22.0-30.0) sec Sodium (137-145) mmol/L BUN (9-20) mg/dL Creatinine (0.66-1.25) mg/dL Glucose (74-99) mg/dL POC Glucose (mg/dL) 128 H 119 H 120 H (75-99) mg/dL Plasma Lactic Acid Perez (0.7-2.0) mmol/L Calcium (8.4-10.2) mg/dL 03/21/19 03/21/19 03/21/19 Range/Units 05:13 05:13 05:13 WBC 17.1 H (3.8-10.6) k/uL RBC 4.12 L (4.30-5.90) m/uL Hgb 11.3 L (13.0-17.5) gm/dL Hct 36.0 L (39.0-53.0) % Neutrophils # 15.2 H (1.3-7.7) k/uL Lymphocytes # 0.4 L (1.0-4.8) k/uL Monocytes # 1.1 H (0-1.0) k/uL APTT 90.9 H (22.0-30.0) sec Sodium 136 L (137-145) mmol/L BUN 70 H (9-20) mg/dL Creatinine 2.81 H (0.66-1.25) mg/dL Glucose 139 H (74-99) mg/dL POC Glucose (mg/dL) (75-99) mg/dL Plasma Lactic Acid Perez (0.7-2.0) mmol/L Calcium 7.8 L (8.4-10.2) mg/dL 03/21/19 Range/Units 05:34 WBC (3.8-10.6) k/uL RBC (4.30-5.90) m/uL Hgb (13.0-17.5) gm/dL Hct (39.0-53.0) % Neutrophils # (1.3-7.7) k/uL Lymphocytes # (1.0-4.8) k/uL Monocytes # (0-1.0) k/uL APTT (22.0-30.0) sec Sodium (137-145) mmol/L BUN (9-20) mg/dL Creatinine (0.66-1.25) mg/dL Glucose (74-99) mg/dL POC Glucose (mg/dL) 137 H (75-99) mg/dL Plasma Lactic Acid Perez (0.7-2.0) mmol/L Calcium (8.4-10.2) mg/dL Microbiology - Last 24 Hours (Table) 03/14/19 08:48 Blood Culture - Final Blood No Growth after 144 hours Assessment and Plan Assessment: 1. Triple-vessel coronary artery disease, non-STEMI this admission 2. Acute hypoxic respiratory failure requiring initiation of BiPAP 3. Acute systolic heart failure with EF 35-40% on TTE, 40-45% on IAN 4. Moderate mitral valve regurgitation per transesophageal echocardiogram 5. History of coronary artery disease with previous non-STEMI 6. Left internal carotid stenosis 50-69% 7. Hypertension 8. Hyperlipidemia 9. Paroxysmal atrial fibrillation on chronic Eliquis, last dose 03/11/2019 10. Type 2 diabeteswith current hemoglobin A1c 8.9% 11. Current tobacco dependence 12. COPD with FEV1 52% of predicted 13. Chronic kidney disease stage III with polycystic kidney disease 14. History of bladder cancer 15. Prostate cancer 16. Acute abdominal pain with ileus Plan: 1. Continue to maximize medical therapy with aspirin, statin, and beta luisa. Continue to hold Eliquis. 2. Continue to wean O2 as tolerated. Bronchodilators per pulmonology. Encourage use of his incentive spirometry every hour while awake. 3. Patient needs coronary artery bypass surgery plus left atrial appendage ligation, timing to be determined, needs to have current active issues resolved first for safety of the patient as he is considered high risk for surgical intervention at this time. 4. General surgery following and have recommended conservative management at this time. Continue NG tube to low intermittent wall suction. 5. Atrial fibrillation management per cardiology recommendations. Currently on heparin, esmolol and amiodarone drip. 6. GI/DVT prophylaxis. 7. We will continue to follow the patient on an as-needed basis. Time with Patient: Greater than 30
--- NOTE | 2019-03-21 11:00 | PN ---
PROGRESS NOTE This patient is status post cardiac catheterization, non-Q-wave myocardial infarction and patient has an evidence of ischemic bowel. Patient continues to be in atrial fibrillation with a moderately rapid ventricular response. He could not tolerate because of the hypotension. The patient continues to have significant abdominal pain. The patient's creatinine is 2.81. White count is 17,000. The patient's urine output was 1 L. The patient's chest x-ray does not show any evidence of failure. Myself and Dr. Hayes both discussed with the family member the risk of surgery is very high and risk of perioperative myocardial infarction. At the same time with ongoing ischemic bowel, patient's prognosis remain poor. Patient's family has made the patient NO CODE. The surgeon will discuss with the family regarding the surgery. MMODL / IJN: [id number] /
[2019-03-21 11:59] LABS: Glucose,Whole Blood 177 mg/dL (75-99)
--- NOTE | 2019-03-21 12:03 | P.PN ---
Subjective Progress Note Date: 03/21/19 on 03/21/2019 the patient is still in the ICU. He is awake. He is having worsening abdominal pain and abdominal distention. NG tube is in place and output is of 800/12 hours. The patient had worsening lactic acidosis and lactic acid level came up to 2.1. Subsequently dropped down to 1.8. Recheck his white cell count is also on the rise and it's up to 17. Abdomen is Or tender the patient has diffuse abdominal tenderness on today's evaluation. No bowel activity. No flatus. He remains on IV Zosyn. He is being taken to the operating room today by general surgery for exploratory laparotomy. Urine output is in order of 30 mL an hour. The patient has a borderline low blood pressure. He is an amiodarone drip for rate control in terms of his A. fib RVR. He was tried on esmolol drip which essentially dropped his blood pressure and this was discontinued. He is on IV heparin drip which was discontinued in preparation for surgery. Urine output is in order of 30 mL an hour. His creat inine is on the rise and it's up to 2.8 with a BUN of 70. No chest pain. Chest x-ray from today showing bilateral pleural effusions and pulmonary vessel congestion. Is currently on 100% nonrebreather facemask. He has some mild to moderate degree of respiratory distress. As mentioned earlier, the patient has extensive coronary artery disease. A IAN was done yesterday and the patient was found to have +2 mitral regurgitation in addition to an ejection fraction of 40- 45%.the patient has multivessel coronary artery disease. He was being considered for bypass surgery and the surgery is currently on hold. He remains on IV heparin. Hemoglobin is stable.He was being considered for bypass surgery. Surgery is currently on hold. He remains on IV heparin. Hemoglobin remains stable. He is a smoker. His FEV1 is 52% of predicted. He is currently on oral Lasix which is on hold. Diabetic medication and also on hold. He has history of bladder cancer. He has undergone transurethral resection of the bladder lesion in the past. He has stage III kidney disease related to polycystic kidne ys.. Objective - Vital Signs Vital signs: Vital Signs Temp 98.8 F 03/21/19 09:30 Pulse 141 H 03/21/19 10:30 Resp 21 03/21/19 10:30 BP 107/68 03/21/19 10:30 Pulse Ox 95 03/21/19 11:43 Intake & Output 03/20/19 03/21/19 03/21/19 18:59 06:59 18:59 Intake Total 2574.098 1941.929 300 Output Total 685 1185 135 Balance 1889.098 756.929 165 Weight 68 kg 68 kg Intake: IV 2340 1500 300 .9 2240 1300 300 Piperacillin-Tazobactam 3 100 200 .375 gm In Sodium Chloride 0.9% 100 ml @ 25 mls/hr IVPB Q8H [facility] Rx#: [id number] Intake, IV Titration 234.098 441.929 Amount Amiodarone 300 mg In 230 Dextrose 5% in Water 250 ml @ 0.5 MG/MIN 25 mls/hr IV .Q10H [facility] Rx#: [id number] Heparin Sod,Pork in 0.45% 207.358 208.041 NaCl 25,000 unit In 0.45 % NaCl 1 250ml.bag @ 24.6 UNITS/KG/HR 17.122 mls/ hr IV .[id number] [facility] Rx#: [id number] Insulin Regular 100 unit 26.740 3.888 In Sodium Chloride 0.9% 100 ml @ Per Protocol IV .Q0M [facility] Rx#:[id number] Output: Gastric Drainage 400 800 Urine 285 385 135 Other: Voiding Method Indwelling Catheter Indwelling Catheter - Exam Gen. appearance the patient is a mild degree of respiratory distress. currently is 100% nonrebreather facemask to maintain a saturation at 92% Head exam was generally normal. There was no scleral icterus or corneal arcus. Mucous membranes were moist. Neck was supple and without jugular venous distension, thyromegaly, or carotid bruits. Carotids were easily palpable bilaterally. There was no adenopathy. Lungs sounds are diminished bilaterally along with scattered expiratory wheezes throughout the lung his bilaterally. Heart sounds are distant. Otherwise, Cardiac exam revealed the PMI to be normally situated and sized. The rhythm was Heart rate is irregular and the patient remains in atrial fibrillation with rapid ventricular response and no extrasystoles were noted during several minutes of auscultation. The first and second heart sounds were normal and physiologic splitting of the second heart sound was noted. There were no murmurs, rubs, clicks, or gallops. Abdominal exam reveals absent bowel sounds and the patient has diffuse direct tenderness over the abdominal wall. There is also some guarding and rebound tenderness. Abdomen is distended. Examination of the extremities revealed easily palpable radial, femoral and pedal pulses. There was no cyanosis, clubbing or edema. Examination of the skin revealed no evidence of significant rashes, suspicious appearing nevi or other concerning lesions. Neurologically awake and alert there is no focal logical deficits. - Labs CBC & Chem 7: 03/21/19 05:13 03/21/19 05:13 Labs: Abnormal Lab Results - Last 24 Hours (Table) 03/20/19 03/20/19 03/20/19 Range/Units 11:51 13:09 13:58 WBC (3.8-10.6) k/uL RBC (4.30-5.90) m/uL Hgb (13.0-17.5) gm/dL Hct (39.0-53.0) % Neutrophils # (1.3-7.7) k/uL Lymphocytes # (1.0-4.8) k/uL Monocytes # (0-1.0) k/uL APTT (22.0-30.0) sec Sodium (137-145) mmol/L BUN (9-20) mg/dL Creatinine (0.66-1.25) mg/dL Glucose (74-99) mg/dL POC Glucose (mg/dL) 211 H 165 H (75-99) mg/dL Plasma Lactic Acid Perez 2.8 H* (0.7-2.0) mmol/L Calcium (8.4-10.2) mg/dL 03/20/19 03/20/19 03/20/19 Range/Units 15:03 15:58 17:22 WBC (3.8-10.6) k/uL RBC (4.30-5.90) m/uL Hgb (13.0-17.5) gm/dL Hct (39.0-53.0) % Neutrophils # (1.3-7.7) k/uL Lymphocytes # (1.0-4.8) k/uL Monocytes # (0-1.0) k/uL APTT (22.0-30.0) sec Sodium (137-145) mmol/L BUN (9-20) mg/dL Creatinine (0.66-1.25) mg/dL Glucose (74-99) mg/dL POC Glucose (mg/dL) 125 H 125 H 142 H (75-99) mg/dL Plasma Lactic Acid Perez (0.7-2.0) mmol/L Calcium (8.4-10.2) mg/dL 03/20/19 03/20/19 03/20/19 Range/Units 18:17 19:04 20:04 WBC (3.8-10.6) k/uL RBC (4.30-5.90) m/uL Hgb (13.0-17.5) gm/dL Hct (39.0-53.0) % Neutrophils # (1.3-7.7) k/uL Lymphocytes # (1.0-4.8) k/uL Monocytes # (0-1.0) k/uL APTT (22.0-30.0) sec Sodium (137-145) mmol/L BUN (9-20) mg/dL Creatinine (0.66-1.25) mg/dL Glucose (74-99) mg/dL POC Glucose (mg/dL) 168 H 158 H 148 H (75-99) mg/dL Plasma Lactic Acid Perez (0.7-2.0) mmol/L Calcium (8.4-10.2) mg/dL 03/20/19 03/20/19 03/20/19 Range/Units 20:12 20:57 21:57 WBC (3.8-10.6) k/uL RBC (4.30-5.90) m/uL Hgb (13.0-17.5) gm/dL Hct (39.0-53.0) % Neutrophils # (1.3-7.7) k/uL Lymphocytes # (1.0-4.8) k/uL Monocytes # (0-1.0) k/uL APTT (22.0-30.0) sec Sodium (137-145) mmol/L BUN (9-20) mg/dL Creatinine (0.66-1.25) mg/dL Glucose (74-99) mg/dL POC Glucose (mg/dL) 133 H 123 H 113 H (75-99) mg/dL Plasma Lactic Acid Perez (0.7-2.0) mmol/L Calcium (8.4-10.2) mg/dL 03/20/19 03/21/19 03/21/19 Range/Units 23:12 01:00 03:09 WBC (3.8-10.6) k/uL RBC (4.30-5.90) m/uL Hgb (13.0-17.5) gm/dL Hct (39.0-53.0) % Neutrophils # (1.3-7.7) k/uL Lymphocytes # (1.0-4.8) k/uL Monocytes # (0-1.0) k/uL APTT (22.0-30.0) sec Sodium (137-145) mmol/L BUN (9-20) mg/dL Creatinine (0.66-1.25) mg/dL Glucose (74-99) mg/dL POC Glucose (mg/dL) 128 H 119 H 120 H (75-99) mg/dL Plasma Lactic Acid Perez (0.7-2.0) mmol/L Calcium (8.4-10.2) mg/dL 03/21/19 03/21/19 03/21/19 Range/Units 05:13 05:13 05:13 WBC 17.1 H (3.8-10.6) k/uL RBC 4.12 L (4.30-5.90) m/uL Hgb 11.3 L (13.0-17.5) gm/dL Hct 36.0 L (39.0-53.0) % Neutrophils # 15.2 H (1.3-7.7) k/uL Lymphocytes # 0.4 L (1.0-4.8) k/uL Monocytes # 1.1 H (0-1.0) k/uL APTT 90.9 H (22.0-30.0) sec Sodium 136 L (137-145) mmol/L BUN 70 H (9-20) mg/dL Creatinine 2.81 H (0.66-1.25) mg/dL Glucose 139 H (74-99) mg/dL POC Glucose (mg/dL) (75-99) mg/dL Plasma Lactic Acid Perez (0.7-2.0) mmol/L Calcium 7.8 L (8.4-10.2) mg/dL 03/21/19 03/21/19 Range/Units 05:34 07:56 WBC (3.8-10.6) k/uL RBC (4.30-5.90) m/uL Hgb (13.0-17.5) gm/dL Hct (39.0-53.0) % Neutrophils # (1.3-7.7) k/uL Lymphocytes # (1.0-4.8) k/uL Monocytes # (0-1.0) k/uL APTT (22.0-30.0) sec Sodium (137-145) mmol/L BUN (9-20) mg/dL Creatinine (0.66-1.25) mg/dL Glucose (74-99) mg/dL POC Glucose (mg/dL) 137 H 157 H (75-99) mg/dL Plasma Lactic Acid Perez (0.7-2.0) mmol/L Calcium (8.4-10.2) mg/dL Microbiology - Last 24 Hours (Table) 03/14/19 08:48 Blood Culture - Final Blood No Growth after 144 hours Assessment and Plan Plan: 1 severe multivessel coronary artery disease, post non-STEMI and the patient is being considered for cardiac revascularization surgery. The patient has COPD. The patient has CHF. Ejection fraction was around 35-40% and he has severe pulmonary hypertension with elevated left ventricular end-diastolic pressure in addition to bilateral pleural effusions. His blood chronic kidney disease related to polycystic kidney and all these comorbidities will put him at an increased risk of postoperative complications following bypass/open heart surge ry. His risk score is to the calculated by the cardiothoracic team. Currently is free of any chest pain.the subsequent IAN showed improved ejection fraction of 40-45%, +2 mitral regurgitation. The patient was being considered for bypass surgery and valve repair he had the surgery got canceled that the patient developed intra-abdominal complication including small bowel ileus and possible ischemic colitis and the patient will be taken to the operating room for an extra to laparotomy by general surgery. 2atrial fibrillation on amiodarone currently on IV heparin and overnight the patient went into A. fib with RVR. Currently is on amiodarone drip at 0.5 g per minute 3 severe pulmonary hypertension with possible mitral regurgitation moderate to severe, 4 acute abdominal possibly secondary to ischemic bowel and the patient has diffuse pain along with leukocytosis, worsening renal failure, lactic acidosis and hemodynamic instability and the patient will be taken to the operating room for expiratory laparotomy. NG tube remains in place. The patient is still nothing by mouth. 5 hyperlipidemia 6 diabetes mellitus, currently on signs given coverage 7 chronic stage III kidney failure, with a component of acute kidney injury secondary to intravascular volume depletion and possibly ischemic bowel and sepsis in the creatinine is up to 2.8 with drop in urine output. 8 COPD with history of chronic smoking 9 polycystic kidney disease 10 history of bladder cancer post-transurethral resection followed by intravesicular chemotherapy 11 diminished oral intake, currently on Ensure 12 acute hypoxic respiratory failure currently on 5 L of oxygen by nasal cannula 13 carotid artery stenosis , plaque with stenosis bilaterally left more than right 14 hypertension plan keep the patient nothing by mouth and the patient will be taken to the operating room for expiratory laparotomy. Continue IV Zosyn. IV fluids at the rate of 100 disease and hour of normal saline Monitor urine output and creatinine Continue amiodarone drip stop the IV heparin in preparation for surgery Condition is critical. Comorbidities are quite extensive especially with triple-vessel coronary artery disease, congestion heart failure and bowel obstruction/ischemia. The patient has signs of multisystem organ failure. He remains a high surgical risk for bowel surgery and cardiac surgery in general. We'll continue to follow. I had a meeting with the family explained to them the critical nature of his condition and the poor prognosis. They're very much aware of the condition. He carries a high mortality. He will likely stay intubated on a mechanical ventilator postop.history care evaluation more than 30 minutes. Time with Patient: Greater than 30
[2019-03-21 12:04] LABS: Ionized Calcium 4.1 mg/dL (4.5-5.3)
[2019-03-21 12:05] LABS: Albumin 2.6 g/dL (3.5-5.0); Magnesium 2.4 mg/dL (1.6-2.3); Phosphorus 5.3 mg/dL (2.5-4.5)
--- NOTE | 2019-03-21 12:21 | P.PN ---
Subjective patient being prepared for operative procedure. Scheduled for of laparoscopic exam by Dr. Hayes. Ileus with possible ischemic bowel. Continues consultation with Dr. Aguiar as sommelier. Patient on hold for cardiac bypass. Patient in critical condition discussed with family Objective - Vital Signs Vital signs: Vital Signs Temp 98.8 F 03/21/19 09:30 Pulse 141 H 03/21/19 10:30 Resp 21 03/21/19 10:30 BP 107/68 03/21/19 10:30 Pulse Ox 95 03/21/19 11:43 Intake & Output 03/20/19 03/21/19 03/21/19 18:59 06:59 18:59 Intake Total 2574.098 1941.929 300 Output Total 685 1185 135 Balance 1889.098 756.929 165 Weight 68 kg 68 kg Intake: IV 2340 1500 300 .9 2240 1300 300 Piperacillin-Tazobactam 3 100 200 .375 gm In Sodium Chloride 0.9% 100 ml @ 25 mls/hr IVPB Q8H [facility] Rx#: [id number] Intake, IV Titration 234.098 441.929 Amount Amiodarone 300 mg In 230 Dextrose 5% in Water 250 ml @ 0.5 MG/MIN 25 mls/hr IV .Q10H [facility] Rx#: [id number] Heparin Sod,Pork in 0.45% 207.358 208.041 NaCl 25,000 unit In 0.45 % NaCl 1 250ml.bag @ 24.6 UNITS/KG/HR 17.122 mls/ hr IV .[id number] [facility] Rx#: [id number] Insulin Regular 100 unit 26.740 3.888 In Sodium Chloride 0.9% 100 ml @ Per Protocol IV .Q0M [facility] Rx#:[id number] Output: Gastric Drainage 400 800 Urine 285 385 135 Other: Voiding Method Indwelling Catheter Indwelling Catheter - Constitutional General appearance: Present: mild distress - EENT Eyes: Present: PERRLA Ears: bilateral: normal - Neck Neck: Present: normal ROM - Respiratory Respiratory: bilateral: diminished - Cardiovascular Rhythm: irregularly irregular Abnormal Heart Sounds: Present: systolic murmur - Gastrointestinal General gastrointestinal: Present: absent bowel sounds, rigid, tenderness Localized gastrointestinal: tender: diffuse - Integumentary Integumentary: Present: normal - Neurologic Neurologic: Present: CNII-XII intact - Musculoskeletal Musculoskeletal: Present: generalized weakness - Psychiatric Psychiatric: Present: A&O x's 3, appropriate affect, intact judgment & insight - Labs CBC & Chem 7: 03/21/19 05:13 03/21/19 05:13 Labs: Abnormal Lab Results - Last 24 Hours (Table) 03/20/19 03/20/19 03/20/19 Range/Units 13:09 13:58 15:03 WBC (3.8-10.6) k/uL RBC (4.30-5.90) m/uL Hgb (13.0-17.5) gm/dL Hct (39.0-53.0) % Neutrophils # (1.3-7.7) k/uL Lymphocytes # (1.0-4.8) k/uL Monocytes # (0-1.0) k/uL APTT (22.0-30.0) sec Sodium (137-145) mmol/L BUN (9-20) mg/dL Creatinine (0.66-1.25) mg/dL Glucose (74-99) mg/dL POC Glucose (mg/dL) 165 H 125 H (75-99) mg/dL Plasma Lactic Acid Perez 2.8 H* (0.7-2.0) mmol/L Calcium (8.4-10.2) mg/dL Ionized Calcium Abran (4.5-5.3) mg/dL Phosphorus (2.5-4.5) mg/dL Magnesium (1.6-2.3) mg/dL Albumin (3.5-5.0) g/dL 03/20/19 03/20/19 03/20/19 Range/Units 15:58 17:22 18:17 WBC (3.8-10.6) k/uL RBC (4.30-5.90) m/uL Hgb (13.0-17.5) gm/dL Hct (39.0-53.0) % Neutrophils # (1.3-7.7) k/uL Lymphocytes # (1.0-4.8) k/uL Monocytes # (0-1.0) k/uL APTT (22.0-30.0) sec Sodium (137-145) mmol/L BUN (9-20) mg/dL Creatinine (0.66-1.25) mg/dL Glucose (74-99) mg/dL POC Glucose (mg/dL) 125 H 142 H 168 H (75-99) mg/dL Plasma Lactic Acid Perez (0.7-2.0) mmol/L Calcium (8.4-10.2) mg/dL Ionized Calcium Abran (4.5-5.3) mg/dL Phosphorus (2.5-4.5) mg/dL Magnesium (1.6-2.3) mg/dL Albumin (3.5-5.0) g/dL 03/20/19 03/20/19 03/20/19 Range/Units 19:04 20:04 20:12 WBC (3.8-10.6) k/uL RBC (4.30-5.90) m/uL Hgb (13.0-17.5) gm/dL Hct (39.0-53.0) % Neutrophils # (1.3-7.7) k/uL Lymphocytes # (1.0-4.8) k/uL Monocytes # (0-1.0) k/uL APTT (22.0-30.0) sec Sodium (137-145) mmol/L BUN (9-20) mg/dL Creatinine (0.66-1.25) mg/dL Glucose (74-99) mg/dL POC Glucose (mg/dL) 158 H 148 H 133 H (75-99) mg/dL Plasma Lactic Acid Perez (0.7-2.0) mmol/L Calcium (8.4-10.2) mg/dL Ionized Calcium Abran (4.5-5.3) mg/dL Phosphorus (2.5-4.5) mg/dL Magnesium (1.6-2.3) mg/dL Albumin (3.5-5.0) g/dL 03/20/19 03/20/19 03/20/19 Range/Units 20:57 21:57 23:12 WBC (3.8-10.6) k/uL RBC (4.30-5.90) m/uL Hgb (13.0-17.5) gm/dL Hct (39.0-53.0) % Neutrophils # (1.3-7.7) k/uL Lymphocytes # (1.0-4.8) k/uL Monocytes # (0-1.0) k/uL APTT (22.0-30.0) sec Sodium (137-145) mmol/L BUN (9-20) mg/dL Creatinine (0.66-1.25) mg/dL Glucose (74-99) mg/dL POC Glucose (mg/dL) 123 H 113 H 128 H (75-99) mg/dL Plasma Lactic Acid Perez (0.7-2.0) mmol/L Calcium (8.4-10.2) mg/dL Ionized Calcium Abran (4.5-5.3) mg/dL Phosphorus (2.5-4.5) mg/dL Magnesium (1.6-2.3) mg/dL Albumin (3.5-5.0) g/dL 03/21/19 03/21/19 03/21/19 Range/Units 01:00 03:09 05:13 WBC 17.1 H (3.8-10.6) k/uL RBC 4.12 L (4.30-5.90) m/uL Hgb 11.3 L (13.0-17.5) gm/dL Hct 36.0 L (39.0-53.0) % Neutrophils # 15.2 H (1.3-7.7) k/uL Lymphocytes # 0.4 L (1.0-4.8) k/uL Monocytes # 1.1 H (0-1.0) k/uL APTT (22.0-30.0) sec Sodium (137-145) mmol/L BUN (9-20) mg/dL Creatinine (0.66-1.25) mg/dL Glucose (74-99) mg/dL POC Glucose (mg/dL) 119 H 120 H (75-99) mg/dL Plasma Lactic Acid Perez (0.7-2.0) mmol/L Calcium (8.4-10.2) mg/dL Ionized Calcium Abran (4.5-5.3) mg/dL Phosphorus (2.5-4.5) mg/dL Magnesium (1.6-2.3) mg/dL Albumin (3.5-5.0) g/dL 03/21/19 03/21/19 03/21/19 Range/Units 05:13 05:13 05:34 WBC (3.8-10.6) k/uL RBC (4.30-5.90) m/uL Hgb (13.0-17.5) gm/dL Hct (39.0-53.0) % Neutrophils # (1.3-7.7) k/uL Lymphocytes # (1.0-4.8) k/uL Monocytes # (0-1.0) k/uL APTT 90.9 H (22.0-30.0) sec Sodium 136 L (137-145) mmol/L BUN 70 H (9-20) mg/dL Creatinine 2.81 H (0.66-1.25) mg/dL Glucose 139 H (74-99) mg/dL POC Glucose (mg/dL) 137 H (75-99) mg/dL Plasma Lactic Acid Perez (0.7-2.0) mmol/L Calcium 7.8 L (8.4-10.2) mg/dL Ionized Calcium Abran (4.5-5.3) mg/dL Phosphorus (2.5-4.5) mg/dL Magnesium (1.6-2.3) mg/dL Albumin (3.5-5.0) g/dL 03/21/19 03/21/19 03/21/19 Range/Units 07:56 11:24 11:58 WBC (3.8-10.6) k/uL RBC (4.30-5.90) m/uL Hgb (13.0-17.5) gm/dL Hct (39.0-53.0) % Neutrophils # (1.3-7.7) k/uL Lymphocytes # (1.0-4.8) k/uL Monocytes # (0-1.0) k/uL APTT (22.0-30.0) sec Sodium (137-145) mmol/L BUN (9-20) mg/dL Creatinine (0.66-1.25) mg/dL Glucose (74-99) mg/dL POC Glucose (mg/dL) 157 H 177 H (75-99) mg/dL Plasma Lactic Acid Perez (0.7-2.0) mmol/L Calcium (8.4-10.2) mg/dL Ionized Calcium Abran 4.1 L (4.5-5.3) mg/dL Phosphorus 5.3 H (2.5-4.5) mg/dL Magnesium 2.4 H (1.6-2.3) mg/dL Albumin 2.6 L (3.5-5.0) g/dL Microbiology - Last 24 Hours (Table) 03/14/19 08:48 Blood Culture - Final Blood No Growth after 144 hours Assessment and Plan Plan: assessment Coronary artery disease with NV awaiting bypass and mitral valve repair Ileus with possible ischemic bowel Atrial fibrillation with RVR Progressing renal failure stage III acute on chronic from polycystic kidney Acute on chronic COPD Congestive heart failure acute on chronic ejection fraction 35-40% Severe pulmonary hypertension Hyperlipidemia Diabetes type 2 History of bladder cancer Hypertension Carotid stenosis Plan Condition critical Being considered for intubation for surgery Continue consultation with Dr. Aguiar for is sommelier Dr. Hayes urgent Cardiac surgeon has signed off at this time
[2019-03-21] MEDS ORDERED: ALBUMIN HUMAN 5% (25gm) 500 ML VIAL IVPB ONE (13:03)
[2019-03-21] MEDS ORDERED: ESMOLOL 100 MG/10 ML VIAL ONE (13:03)
[2019-03-21] MEDS ORDERED: MIDAZOLAM 2 MG/2 ML VIAL ONE (13:03)
[2019-03-21] MEDS ORDERED: SUCCINYLCHOLINE CHLORIDE 100 MG/5 ML SYR IV ONE (13:03)
[2019-03-21] MEDS ORDERED: LIDOCAINE 1% INJ 10MG/ML (20 ML MDV) ONE (13:03)
[2019-03-21] MEDS ORDERED: SODIUM BICARB 8.4% 50 ML SYR (1 MEQ/ML) ONE (13:03)
[2019-03-21] MEDS ORDERED: ETOMIDATE 2 MG/ML 10 ML VIAL ONE (13:03)
[2019-03-21] MEDS ORDERED: PHENYLEPHRINE-0.9% NACL SYG 1 MG/10 ML SYRINGE ONE (13:03)
[2019-03-21] MEDS ORDERED: fentaNYL (PF) 50 MCG/ML 2 ML AMP ONE (13:03)
[2019-03-21] MEDS ORDERED: ROCURONIUM BROMIDE 10 MG/ML 10 ML VIAL IV ONE (13:03)
[2019-03-21] MEDS ORDERED: CALCIUM CHLORIDE 100 MG/ML 10 ML SYRINGE ONE (13:03)
[2019-03-21] MEDS ORDERED: IV FLUID CONTINUATION 900 ML IV ONE (13:08)
[2019-03-21 13:50] LABS: Allen Test Performed? Yes
[2019-03-21 13:56] LABS: ABG HCO3 28 mmol/L (21-25); ABG Oxygen Saturation 96.8 % (94-97); ABG PCO2 49 mmHg (35-45); ABG PH 7.38 (7.35-7.45); ABG PO2 98 mmHg (83-108)
[2019-03-21] MEDS ORDERED: MVI, ADULT NO.4 WITH VIT K 10 ML, TRACE (CONC-1ML/DOSE) 1 ML, SODIUM ACETATE 30 MEQ, PO... IV SCH ×6 (14:00)
--- NOTE | 2019-03-21 14:15 | P.OP ---
Date of Procedure: 03/21/19 Preoperative Diagnosis: Acute abdomen Postoperative Diagnosis: Small bowel ischemia/necrosis with perforation Procedure(s) Performed: Exploratory laparotomy Small bowel resection Jejunostomy Anesthesia: REGINE Surgeon: Jed Hayes Estimated Blood Loss (ml): 20 Pathology: other (Ileum, jejunum) Condition: critical Disposition: ICU Description of Procedure: The patient's placed on the operating table in the supine position. He received general anesthesia. His abdomen was prepped and draped usual sterile fashion. The abdomen was entered through a midline incision. The Bookwalter tract with wound. The abdomen was explored. There was obvious ischemia with severe necro sis of the small bowel. The small bowel was run from the terminal ileum to the level of the ligament Treitz. There was a nonviable segment which was most of the ileum and a proximal half of the jejunum. The ischemic bowel was transected proximally distally with the VALERIA stapler then using the Enseal device the mesentery the bowel was divided. The specimen sent to pathology. There were 3 focal pinpoint perforation points in the necrotic small bowel. The abdomen was irrigated with 3 L of normal saline. The jejunostomy brought out in the left upper quadrant. The fascia was then closed with looped #1 PDS suture. Skin is no signal. The jejunostomy matured with 3-0 Vicryl. Patient tolerated procedure. He was sent to the ICU in critical condition.
[2019-03-21] MEDS ORDERED: SODIUM CHLORIDE 0.9% 1,000 ML IV ONE ×2 (14:16)
--- NOTE | 2019-03-21 15:44 | XR ---
EXAMINATION TYPE: XR chest 1V portable DATE OF EXAM: 03/21/2019 COMPARISON: 03/21/2019 HISTORY: Endotracheal tube placement. TECHNIQUE: Single frontal view of the chest is obtained. FINDINGS: Endotracheal tube terminates approximately 2.2 cm from the jagdish and is currently properl y placed. Enteric tube courses in the distal [id number] although accessory portion appears at the gastroesophageal junction. This could be advanced slightly for optimal placement. Improved bibasilar airspace disease. Stable cardiomediastinal silhouette enlargement. Diffuse osseous demineralization. IMPRESSION: 1. Endotracheal tube terminates 2.2 cm from the jagdish, currently appropriately placed. 2. Enteric tube has been slightly retracted with its fenestrated portion at the gastroesophageal junc tion. This could be advanced for optimal placement at least 2 to 3 cm. 3. Improved aeration the lungs in comparison to the prior earlier the same date.
[2019-03-21 15:49] LABS: ABG Base Excess 3.2 mmol/L; ABG HCO3 28 mmol/L (21-25); ABG Oxygen Saturation 98.4 % (94-97); ABG PCO2 42 mmHg (35-45); ABG PH 7.43 (7.35-7.45); ABG PO2 126 mmHg (83-108); ABG TCO2 29 mmol/L (19-24)
[2019-03-21 15:50] LABS: Allen Test Performed? no
[2019-03-21 16:03] LABS: Glucose,Whole Blood 170 mg/dL (75-99)
[2019-03-21] MEDS: POTASSIUM CHLORIDE 10 MEQ in WATER FOR INJECTION 1 100ML.BAG IVPB SCH ×2 (16:06→17:19)
[2019-03-21] MEDS: PROPOFOL 1,000 MG in EMPTY BAG 1 BAG IV SCH ×2 (16:16→21:30)
[2019-03-21] MEDS ORDERED: FAT EMULSION 20% 250 ML in EMPTY BAG 1 BAG IV SCH (18:00)
[2019-03-21] MEDS: NOREPINEPHRINE 4 MG in SODIUM CHLORIDE 0.9% 250 ML IV SCH (18:12)
--- NOTE | 2019-03-21 18:52 | XR ---
EXAMINATION TYPE: XR chest 1V portable DATE OF EXAM: 03/21/2019 COMPARISON: Today HISTORY: Check line placement TECHNIQUE: Single view FINDINGS: Endotracheal tube is 2.5 cm from the jagdish. There is some blunting of the costophrenic ang les. Heart is enlarged. There is left side subclavian catheter that has the tip extending into the ne ck in the jugular vein. There is no pneumothorax. IMPRESSION: Bilateral pleural effusions unchanged compared to exam earlier today. Malposition of the left-sided central venous catheter.
[2019-03-21] MEDS: AMIODARONE 360 MG in DEXTROSE 5% IN WATER 200 ML IV SCH ×2 (19:31)
--- NOTE | 2019-03-21 19:40 | PCN ---
PROCEDURE NOTE PREOPERATIVE DIAGNOSIS: Acute ischemic bowel, post bowel resection. POSTOPERATIVE DIAGNOSIS: Acute ischemic bowel, post bowel resection. PROCEDURE: Triple-lumen catheter insertion, left IJ. Indication: Hemodynamic monitoring/Intravenous access. A time-out was completed verifying correct patient, procedure, site, positioning, and implant(s) or special equipment if applicable. The patient was placed in a dependent position appropriate for triple-lumen catheter placement based on the vein to be cannulated. The patient's left neck was prepped and draped in sterile fashion. 1% Lidocaine was used to anesthetize the surrounding skin area. A triple-lumen 9F Cordis catheter was introduced into the internal jugular vein using Seldinger technique. The catheter was threaded smoothly over the guide wire and appropriate blood return was obtained. Each lumen of the catheter was evacuated of air and flushed with sterile saline. The catheter was then sutured in place to the skin and a sterile dressing applied. Perfusion to the extremity distal to the point of catheter insertion was checked and found to be adequate. There were no bedside complications or bleeding. MMODL / IJN: [id number] /
--- NOTE | 2019-03-21 19:44 | XR ---
EXAMINATION TYPE: XR chest 1V portable DATE OF EXAM: 03/21/2019 COMPARISON: Today HISTORY: Check line placement TECHNIQUE: Joel view. Left jugular catheter has the tip in the superior vena cava in good position. There are bilateral ple ural effusions unchanged. Endotracheal tube is 1.7 cm from the jagdish. : IMPRESSION: Intravenous catheter in good position. Endotracheal tube is somewhat low.
[2019-03-21 20:04] LABS: Glucose,Whole Blood 274 mg/dL (75-99)
[2019-03-21 20:55] LABS: Glucose,Whole Blood 269 mg/dL (75-99)
[2019-03-21] MEDS: CHLORHEXIDINE GLUCONATE 15 ML CUP MUCOUS MEM SCH (20:55)
[2019-03-21] MEDS: ATORVASTATIN 80 MG TAB PO SCH (20:55)
[2019-03-21 22:02] LABS: Glucose,Whole Blood 299 mg/dL (75-99)
[2019-03-21 23:28] LABS: Glucose,Whole Blood 253 mg/dL (75-99)
[2019-03-22 00:08] LABS: Glucose,Whole Blood 289 mg/dL (75-99)
[2019-03-22 01:25] LABS: Glucose,Whole Blood 216 mg/dL (75-99)
[2019-03-22] MEDS ORDERED: MVI, ADULT NO.4 WITH VIT K 10 ML, TRACE (CONC-1ML/DOSE) 1 ML, SODIUM ACETATE 30 MEQ, PO... IV SCH ×6 (02:00)
[2019-03-22 02:18] LABS: Glucose,Whole Blood 215 mg/dL (75-99)
[2019-03-22] MEDS: AMIODARONE 360 MG in DEXTROSE 5% IN WATER 200 ML IV SCH ×8 (02:34→19:46)
[2019-03-22] MEDS: SODIUM CHLORIDE 0.9% 1,000 ML IV SCH ×3 (02:35→23:22)
[2019-03-22 03:02] LABS: Glucose,Whole Blood 195 mg/dL (75-99)
[2019-03-22 04:09] LABS: Glucose,Whole Blood 170 mg/dL (75-99)
[2019-03-22 05:01] LABS: Glucose,Whole Blood 162 mg/dL (75-99)
[2019-03-22 05:11] LABS: ABG Base Excess 4.2 mmol/L; ABG HCO3 28 mmol/L (21-25); ABG Oxygen Saturation 96.5 % (94-97); ABG PCO2 39 mmHg (35-45); ABG PH 7.46 (7.35-7.45); ABG PO2 85 mmHg (83-108); ABG TCO2 29 mmol/L (19-24); Allen Test Performed? Yes
[2019-03-22] MEDS: PIPERACILLIN-TAZOBACTAM 3.375 GM in SODIUM CHLORIDE 0.9% 100 ML IVPB SCH ×3 (05:12→20:46)
[2019-03-22] MEDS: NOREPINEPHRINE 4 MG in SODIUM CHLORIDE 0.9% 250 ML IV SCH ×2 (05:12→11:54)
[2019-03-22 05:42] LABS: Basophils # (A) 0.3 k/uL (0-0.2); Basophils % (A) 2 %; Eosinophils # (A) 0.1 k/uL (0-0.7); Eosinophils % (A) 0 %; HCT 30.5 % (39.0-53.0); Lymphocytes # (A) 0.1 k/uL (1.0-4.8); Lymphocytes % (A) 0 %; MCH 28.3 pg (25.0-35.0); MCHC 32.9 g/dL (31.0-37.0); MCV 86.2 fL (80.0-100.0); Monocytes % (A) 5 %; Neutrophils # (A) 17.6 k/uL (1.3-7.7); Neutrophils % (A) 91 %; Platelet Count 228 k/uL (150-450); RBC 3.55 m/uL (4.30-5.90); RDW 14.6 % (11.5-15.5); WBC 19.3 k/uL (3.8-10.6)
[2019-03-22 05:51] LABS: Calcium 7.5 mg/dL (8.4-10.2); Magnesium 2.2 mg/dL (1.6-2.3); Phosphorus 2.7 mg/dL (2.5-4.5); Potassium 3.1 mmol/L (3.5-5.1)
[2019-03-22 06:00] LABS: Glucose,Whole Blood 140 mg/dL (75-99)
[2019-03-22] MEDS: INSULIN REGULAR 100 UNIT in SODIUM CHLORIDE 0.9% 100 ML IV SCH (07:00)
[2019-03-22] MEDS ORDERED: POTASSIUM CHLORIDE 20 MEQ in WATER FOR INJECTION 1 100ML.BAG IVPB ONE ×2 (07:00→14:00)
--- NOTE | 2019-03-22 07:07 | XR ---
EXAMINATION TYPE: XR chest 1V portable DATE OF EXAM: 03/22/2019 COMPARISON: 03/21/2019 INDICATION: Tube placement TECHNIQUE: Single frontal view of the chest is obtained. FINDINGS: The heart size is upper limits of normal. The pulmonary vasculature is normal. There is a right lower lobe infiltrate. Left diaphragm may be out of the [id number]. Small left pl eural effusion may be present. Endotracheal tube tip is above jagdish. Nasogastric tube transverses the thorax. Left central venous c atheter is present with tip in the superior vena cava region. IMPRESSION: 1. Lines and catheters discussed above. 2. Worsening right lower lobe infiltrate. 3. Small left pleural effusion is not excluded.
[2019-03-22 07:15] LABS: Glucose,Whole Blood 109 mg/dL (75-99)
[2019-03-22] MEDS: BUDESONIDE 1 MG/2 ML NEBU INHALATION SCH ×2 (07:44→19:05)
[2019-03-22] MEDS: FORMOTEROL FUMARATE 20 MCG/2 ML NEBU INHALATION SCH ×2 (07:44→19:05)
[2019-03-22] MEDS: IPRATROPIUM-ALBUTEROL 3 ML NEB INHALATION SCH ×4 (07:44→19:05)
--- NOTE | 2019-03-22 08:48 | CDI ---
Documentation Clarification Form Date: 03/22/2019 08:34:06 AM From: Airam Alas CCS, CCDS Admit Date: 03/14/2019 11:11:00 AM Patient Name: Irving Camacho Visit Number: [id number] Discharge Date: ATTENTION: The Clinical Documentation Specialists (CDI) and [facility] Coding Staff appreciate your assistance in clarifying documentation. Please respond to the clarification below the line at the bottom and electronically sign. The CDI & [facility] Coding staff will review the response and follow-up if needed. Please note: Queries are made part of the Legal Health Record. If you have any questions, please contact the author of this message via ITS. Dr. Radames Aguiar: 03/21: Patient became tachycardic, continued to be in atrial fibrillation with RVR, confused with volume depletion & hypotension, taken to the OR for acute ischemic small intestine requiring small bowel resection & jejunostomy. Patient history/risk factors: Severe CAD: triple vessel disease, Long time smoker, COPD, CKD IV, Polycystic kidney disease & hypertension. Clinical Indicators: Presented for pre-op clearance for CABG, found to be in renal failure, became SOB and was admitted with acute respiratory failure, admitted to ICU. Developed acute ischemic small bowel with perforation. 03/21 The patient became tachycardic & confused, Albumin 7. Hypotensive with BP low: 85/49*, WBC 12.8 - 17.1, Lactic acid 2.8, Hgb 11.3 - 10.0, remains intubated status post exploratory laparotomy, small bowel resection & jejunostomy. Current VS: T 100.2, P 120^ (irregular), R 12-16, BP 92/74 - 101/57, arterial BP 92/48, intubated on vent. Treatment as of 03/21: IV fluid bolus, IV Cardizem drip, IV Insulin, IV Amiodarone. In your professional opinion, can you please specify the type of shock if known? Septic Shock o Please include Sepsis diagnosis if present & suspected or known causative organism o Any associated organ failure Cardiogenic Shock o Cause Hypovolemic Shock o Cause Other, please specify Unable to determine (Last Revision: January 2017) 1 Septic shock secondary to acute small bowel ischemia, organism not known MTDD
[2019-03-22 09:01] LABS: Glucose,Whole Blood 153 mg/dL (75-99)
[2019-03-22] MEDS: FENOFIBRATE 160 MG TAB PO SCH (09:57)
[2019-03-22] MEDS: PANTOPRAZOLE 40 MG/10 ML VIAL IVP SCH (09:57)
[2019-03-22] MEDS: ASPIRIN 81 MG PO SCH (09:57)
[2019-03-22] MEDS: CHLORHEXIDINE GLUCONATE 15 ML CUP MUCOUS MEM SCH ×2 (09:57→20:48)
[2019-03-22 10:02] LABS: Glucose,Whole Blood 180 mg/dL (75-99)
--- NOTE | 2019-03-22 10:49 | P.PN ---
Subjective Progress Note Date: 03/22/19 on 03/22/2019 I'm seeing the patient in intensive care unit. The patient was taken to the operating room yesterday and intraoperatively, the patient was found to have obvious ischemia and severe necrosis of the small bowel. The patient as such underwent small bowel resection with a nonviable segment of the ileum and the proximal half of the jejunum was resected and the patient was found to have 3 focal pinpoint perforations in the small bowel. The abdomen was irrigated with saline and a total of 3 L of irrigation was done. He was given a jejunostomy and he was brought back to the intensive care unit intubated on a mechanical ventilator. This morning, the patient is well sedated with propofol which is running at 35 g per KG per minute. He is on mechanical ventilator. And his assist-control mode of ventilation at the rate of 12 with a tidal volume of 500 and FiO2 of 50% with a PEEP of 5. The chest x-ray from today shows Juan Daniel megaly and pulmonary vessel congestion is present along with small to moderate-sized pleural effusion. The blood gases from today showed a pH of 7.46 with a pCO2 of 39 and pO2 of 85. His lactic acid level was dropping yesterday and was down to 1.3. He is producing Urine output in the order of 50 mL an hour. He is on a maintenance IV fluid of 100 mL an hour of normal saline. He is also on norepinephrine infusion running at 0.12 g per KG per minute. He is also receiving TPN for nutritional support. As far as antibiotic coverage, he is still on IV Zosyn. He is having a low-grade fever with a temperature 100.2. He is well sedated for now. Surgical wound site is dry clean and intact. The jejunostomy site is viable. He has adequate pulses in lower extremities. From the cardiac standpoint, the patient converted into normal sinus rhythm. Amiodarone was still running at 1 mg per minute. He will be started back on IV heparin regarding his paroxysmal atrial fibrillation and his history of ischemic bowel. Note that the patient has COPD,, his FEV1 is normal to 52% of predicted, he has history of diabetes and history of bladder cancer and he has history of stage III kidney disease with polycystic kidney disease disorder. Objective - Vital Signs Vital signs: Vital Signs Temp 100.2 F H 03/22/19 08:00 Pulse 80 03/22/19 09:30 Resp 20 03/22/19 09:30 BP 135/58 03/22/19 09:30 Pulse Ox 96 03/22/19 09:30 Intake & Output 03/21/19 03/22/19 03/22/19 18:59 06:59 18:59 Intake Total 5996.980 4642.109 225.446 Output Total 660 970 120 Balance 2522.687 3470.109 105.446 Weight 68 kg 72.6 kg Intake: IV 1850 1500 220 .9 800 1300 120 Piperacillin-Tazobactam 3 100 200 .375 gm In Sodium Chloride 0.9% 100 ml @ 25 mls/hr IVPB Q8H [facility] Rx#: [id number] TPN 100 Intake, IV Titration 9.808 659.109 5.446 Amount Amiodarone 360 mg In 287.221 Dextrose 5% in Water 200 ml @ 1 MG/MIN 33.333 mls/ hr IV .Q6H [facility] Rx#: [id number] Insulin Regular 100 unit 70.372 5.446 In Sodium Chloride 0.9% 100 ml @ Per Protocol IV .Q0M [facility] Rx#:[id number] Norepinephrine 4 mg In 1.036 252.964 Sodium Chloride 0.9% 250 ml @ 0.05 MCG/KG/MIN 12. 954 mls/hr IV .[id number] [facility] Rx#:[id number] Propofol 1,000 mg In 8.772 48.552 Empty Bag 1 bag @ Titrate IV .Q0M [facility] Rx#: [id number] Output: Gastric Drainage 300 500 Urine 340 470 120 Estimated Blood Loss 20 Other: Voiding Method Indwelling Catheter Indwelling Catheter ABP, PAP, CO, CI - Last Documented Arterial Blood Pressure 144/43 - Exam Gen. appearance the patient his, comfortable intubated on a mechanical ventilator and orogastric and orotracheal tube are both in place. Head exam was generally normal. There was no scleral icterus or corneal arcus. Mucous membranes were moist. Neck was supple and without jugular venous distension, thyromegaly, or carotid bruits. Carotids were easily palpable bilaterally. There was no adenopathy. Lungs sounds are diminished bilaterally along with scattered expiratory wheezes throughout the lung his bilaterally. Heart sounds are distant. Otherwise, Cardiac exam revealed the PMI to be normally situated and sized. The rhythm was Heart rate is irregular based on the fact that he is swallowing a lot of PVCs and PACs and is out of atrial fibrillation for now nd no extrasystoles were noted during several minutes of auscultation. The first and second heart sounds were normal and physiologic splitting of the second heart sound was noted. There were no murmurs, rubs, clicks, or gallops. Abdominal exam reveals absent absent bowel sounds, jejunostomy site is viable and there is some liquidy material collecting in the back. The patient also has a mid abdominal incision which is dry clean and intact at this point in time.. Examination of the extremities revealed easily palpable radial, femoral and pedal pulses. There was no cyanosis, clubbing or edema. Examination of the skin revealed no evidence of significant rashes, suspicious appearing nevi or other concerning lesions. Neurologically he is was sedated with propofol and is calm and comfortable. - Labs CBC & Chem 7: 03/22/19 05:30 03/22/19 05:30 Labs: Abnormal Lab Results - Last 24 Hours (Table) 03/21/19 03/21/19 03/21/19 Range/Units 11:24 11:24 11:58 WBC (3.8-10.6) k/uL RBC (4.30-5.90) m/uL Hgb (13.0-17.5) gm/dL Hct (39.0-53.0) % Neutrophils # (1.3-7.7) k/uL Lymphocytes # (1.0-4.8) k/uL Basophils # (0-0.2) k/uL APTT 39.4 H (22.0-30.0) sec ABG pH (7.35-7.45) ABG pCO2 (35-45) mmHg ABG pO2 (83-108) mmHg ABG HCO3 (21-25) mmol/L ABG Total CO2 (19-24) mmol/L ABG O2 Saturation (94-97) % Potassium (3.5-5.1) mmol/L BUN (9-20) mg/dL Creatinine (0.66-1.25) mg/dL Glucose (74-99) mg/dL POC Glucose (mg/dL) 177 H (75-99) mg/dL Calcium (8.4-10.2) mg/dL Ionized Calcium Abran 4.1 L (4.5-5.3) mg/dL Phosphorus 5.3 H (2.5-4.5) mg/dL Magnesium 2.4 H (1.6-2.3) mg/dL Albumin 2.6 L (3.5-5.0) g/dL 03/21/19 03/21/19 03/21/19 Range/Units 13:45 15:48 16:01 WBC (3.8-10.6) k/uL RBC (4.30-5.90) m/uL Hgb (13.0-17.5) gm/dL Hct (39.0-53.0) % Neutrophils # (1.3-7.7) k/uL Lymphocytes # (1.0-4.8) k/uL Basophils # (0-0.2) k/uL APTT (22.0-30.0) sec ABG pH (7.35-7.45) ABG pCO2 49 H (35-45) mmHg ABG pO2 126 H (83-108) mmHg ABG HCO3 28 H 28 H (21-25) mmol/L ABG Total CO2 29 H (19-24) mmol/L ABG O2 Saturation 98.4 H (94-97) % Potassium (3.5-5.1) mmol/L BUN (9-20) mg/dL Creatinine (0.66-1.25) mg/dL Glucose (74-99) mg/dL POC Glucose (mg/dL) 170 H (75-99) mg/dL Calcium (8.4-10.2) mg/dL Ionized Calcium Abran (4.5-5.3) mg/dL Phosphorus (2.5-4.5) mg/dL Magnesium (1.6-2.3) mg/dL Albumin (3.5-5.0) g/dL 03/21/19 03/21/19 03/21/19 Range/Units 20:02 20:54 22:00 WBC (3.8-10.6) k/uL RBC (4.30-5.90) m/uL Hgb (13.0-17.5) gm/dL Hct (39.0-53.0) % Neutrophils # (1.3-7.7) k/uL Lymphocytes # (1.0-4.8) k/uL Basophils # (0-0.2) k/uL APTT (22.0-30.0) sec ABG pH (7.35-7.45) ABG pCO2 (35-45) mmHg ABG pO2 (83-108) mmHg ABG HCO3 (21-25) mmol/L ABG Total CO2 (19-24) mmol/L ABG O2 Saturation (94-97) % Potassium (3.5-5.1) mmol/L BUN (9-20) mg/dL Creatinine (0.66-1.25) mg/dL Glucose (74-99) mg/dL POC Glucose (mg/dL) 274 H 269 H 299 H (75-99) mg/dL Calcium (8.4-10.2) mg/dL Ionized Calcium Abran (4.5-5.3) mg/dL Phosphorus (2.5-4.5) mg/dL Magnesium (1.6-2.3) mg/dL Albumin (3.5-5.0) g/dL 03/21/19 03/22/19 03/22/19 Range/Units 23:26 00:07 01:23 WBC (3.8-10.6) k/uL RBC (4.30-5.90) m/uL Hgb (13.0-17.5) gm/dL Hct (39.0-53.0) % Neutrophils # (1.3-7.7) k/uL Lymphocytes # (1.0-4.8) k/uL Basophils # (0-0.2) k/uL APTT (22.0-30.0) sec ABG pH (7.35-7.45) ABG pCO2 (35-45) mmHg ABG pO2 (83-108) mmHg ABG HCO3 (21-25) mmol/L ABG Total CO2 (19-24) mmol/L ABG O2 Saturation (94-97) % Potassium (3.5-5.1) mmol/L BUN (9-20) mg/dL Creatinine (0.66-1.25) mg/dL Glucose (74-99) mg/dL POC Glucose (mg/dL) 253 H 289 H 216 H (75-99) mg/dL Calcium (8.4-10.2) mg/dL Ionized Calcium Abran (4.5-5.3) mg/dL Phosphorus (2.5-4.5) mg/dL Magnesium (1.6-2.3) mg/dL Albumin (3.5-5.0) g/dL 03/22/19 03/22/19 03/22/19 Range/Units 02:16 03:00 04:07 WBC (3.8-10.6) k/uL RBC (4.30-5.90) m/uL Hgb (13.0-17.5) gm/dL Hct (39.0-53.0) % Neutrophils # (1.3-7.7) k/uL Lymphocytes # (1.0-4.8) k/uL Basophils # (0-0.2) k/uL APTT (22.0-30.0) sec ABG pH (7.35-7.45) ABG pCO2 (35-45) mmHg ABG pO2 (83-108) mmHg ABG HCO3 (21-25) mmol/L ABG Total CO2 (19-24) mmol/L ABG O2 Saturation (94-97) % Potassium (3.5-5.1) mmol/L BUN (9-20) mg/dL Creatinine (0.66-1.25) mg/dL Glucose (74-99) mg/dL POC Glucose (mg/dL) 215 H 195 H 170 H (75-99) mg/dL Calcium (8.4-10.2) mg/dL Ionized Calcium Abran (4.5-5.3) mg/dL Phosphorus (2.5-4.5) mg/dL Magnesium (1.6-2.3) mg/dL Albumin (3.5-5.0) g/dL 03/22/19 03/22/19 03/22/19 Range/Units 04:53 04:59 05:30 WBC (3.8-10.6) k/uL RBC (4.30-5.90) m/uL Hgb (13.0-17.5) gm/dL Hct (39.0-53.0) % Neutrophils # (1.3-7.7) k/uL Lymphocytes # (1.0-4.8) k/uL Basophils # (0-0.2) k/uL APTT (22.0-30.0) sec ABG pH 7.46 H (7.35-7.45) ABG pCO2 (35-45) mmHg ABG pO2 (83-108) mmHg ABG HCO3 28 H (21-25) mmol/L ABG Total CO2 29 H (19-24) mmol/L ABG O2 Saturation (94-97) % Potassium 3.1 L (3.5-5.1) mmol/L BUN 71 H (9-20) mg/dL Creatinine 2.64 H (0.66-1.25) mg/dL Glucose 148 H (74-99) mg/dL POC Glucose (mg/dL) 162 H (75-99) mg/dL Calcium 7.5 L (8.4-10.2) mg/dL Ionized Calcium Abran (4.5-5.3) mg/dL Phosphorus (2.5-4.5) mg/dL Magnesium (1.6-2.3) mg/dL Albumin (3.5-5.0) g/dL 03/22/19 03/22/19 03/22/19 Range/Units 05:30 05:59 07:13 WBC 19.3 H (3.8-10.6) k/uL RBC 3.55 L (4.30-5.90) m/uL Hgb 10.0 L (13.0-17.5) gm/dL Hct 30.5 L (39.0-53.0) % Neutrophils # 17.6 H (1.3-7.7) k/uL Lymphocytes # 0.1 L (1.0-4.8) k/uL Basophils # 0.3 H (0-0.2) k/uL APTT (22.0-30.0) sec ABG pH (7.35-7.45) ABG pCO2 (35-45) mmHg ABG pO2 (83-108) mmHg ABG HCO3 (21-25) mmol/L ABG Total CO2 (19-24) mmol/L ABG O2 Saturation (94-97) % Potassium (3.5-5.1) mmol/L BUN (9-20) mg/dL Creatinine (0.66-1.25) mg/dL Glucose (74-99) mg/dL POC Glucose (mg/dL) 140 H 109 H (75-99) mg/dL Calcium (8.4-10.2) mg/dL Ionized Calcium Abran (4.5-5.3) mg/dL Phosphorus (2.5-4.5) mg/dL Magnesium (1.6-2.3) mg/dL Albumin (3.5-5.0) g/dL 03/22/19 03/22/19 Range/Units 08:59 10:01 WBC (3.8-10.6) k/uL RBC (4.30-5.90) m/uL Hgb (13.0-17.5) gm/dL Hct (39.0-53.0) % Neutrophils # (1.3-7.7) k/uL Lymphocytes # (1.0-4.8) k/uL Basophils # (0-0.2) k/uL APTT (22.0-30.0) sec ABG pH (7.35-7.45) ABG pCO2 (35-45) mmHg ABG pO2 (83-108) mmHg ABG HCO3 (21-25) mmol/L ABG Total CO2 (19-24) mmol/L ABG O2 Saturation (94-97) % Potassium (3.5-5.1) mmol/L BUN (9-20) mg/dL Creatinine (0.66-1.25) mg/dL Glucose (74-99) mg/dL POC Glucose (mg/dL) 153 H 180 H (75-99) mg/dL Calcium (8.4-10.2) mg/dL Ionized Calcium Abran (4.5-5.3) mg/dL Phosphorus (2.5-4.5) mg/dL Magnesium (1.6-2.3) mg/dL Albumin (3.5-5.0) g/dL Microbiology - Last 24 Hours (Table) 03/22/19 03:58 Sputum Culture - Preliminary Sputum Assessment and Plan Plan: 1 acute ischemic small bowel post exploratory laparotomy and excision of the neck shows that bowel involving the small bowel and the patient underwent a ileal and jejunal resection and the patient had a diverting jejunostomy. The patient is currently postop day #1. the patient is hemodynamically doing well. He is currently on pressors which is running at 0.12 g per KG per minute of norepinephrine infusion. He has received adequate fluid resuscitation. He is on broad-spectrum antibiotic with IV Zosyn. 2 severe multivessel coronary artery disease, post non-STEMI and the patient was being considered for cardiac revascularization surgery. Ejection fraction was around 35-40% and he has severe pulmonary hypertension with elevated left ventricular end-diastolic pressure in addition to bilateral pleural effusions. IAN showed improved ejection fraction of 40-45%, +2 mitral regurgitation. The patient was being considered for bypass surgery and valve repair he had the surgery got canceled 3 paroxysmal atrial fibrillation , currently rhythm is sinus with frequent ectopies and amiodarone drip is still running at the rate of 1 mg per minute. 4 severe pulmonary hypertension with possible mitral regurgitation moderate to severe, 5 hyperlipidemia 6 diabetes mellitus, currently on signs given coverage 7 chronic stage III kidney failure, with a component of acute kidney injury secondary to intravascular volume depletion and possibly ischemic bowel and sepsis in the creatinine is up to 2.6 with drop in urine output. 8 COPD with history of chronic smoking 9 polycystic kidney disease 10 history of bladder cancer post-transurethral resection followed by intravesicular chemotherapy 11 diminished oral intake, currently on Ensure 12 acute hypoxic respiratory failure currently on 5 L of oxygen by nasal cannula 13 carotid artery stenosis , plaque with stenosis bilaterally left more than right 14 hypertension, history of plan continue vent support, no vent changes for today IV Zosyn IV fluids IV propofol for sedation IV norepinephrine infusion for blood pressure support keep a mean artery pressure above 65 Monitor urine output Monitor creatinine Continue TPN for nutritional support Discussed with cardiology regarding dropping the dose of amiodarone as the patient is back to normal sinus rhythm with frequent ectopies Monitor the abdominal wound Condition is still critical. We'll continue to follow make further recommendations based on his progress. Case was discussed with the family evaluation was done more than 30 minutes. Time with Patient: Greater than 30
[2019-03-22] MEDS ORDERED: MVI, ADULT NO.4 WITH VIT K 10 ML, TRACE (CONC-1ML/DOSE) 1 ML, PARENTERAL ELECTROLYTES 2... IV SCH ×4 (11:00)
[2019-03-22 11:11] LABS: Glucose,Whole Blood 184 mg/dL (75-99)
[2019-03-22] MEDS: PROPOFOL 1,000 MG in EMPTY BAG 1 BAG IV SCH ×2 (11:53→17:54)
[2019-03-22] MEDS ORDERED: HEPARIN SODIUM,PORCINE 5,000 UNIT/ML 1 ML VIAL IV ONE (12:00)
[2019-03-22 12:06] LABS: Glucose,Whole Blood 184 mg/dL (75-99)
--- NOTE | 2019-03-22 13:04 | P.PN ---
Subjective Progress Note Date: 03/22/19 Principal diagnosis: ischemic bowel the patient's postoperative day 1 from exploratory laparotomy with small bowel resection due to small bowel ischemia and necrosis. He has been roughly stable overnight the ventilator. Objective - Vital Signs Vital signs: Vital Signs Temp 100.1 F H 03/22/19 12:00 Pulse 117 H 03/22/19 12:00 Resp 24 03/22/19 12:00 BP 123/56 03/22/19 12:00 Pulse Ox 97 03/22/19 12:00 Intake & Output 03/21/19 03/22/19 03/22/19 18:59 06:59 18:59 Intake Total 3036.054 0443.109 940.455 Output Total 660 970 360 Balance 0087.873 9520.109 580.455 Weight 68 kg 72.6 kg Intake: IV 1850 1500 670 .9 800 1300 420 Piperacillin-Tazobactam 3 100 200 .375 gm In Sodium Chloride 0.9% 100 ml @ 25 mls/hr IVPB Q8H [facility] Rx#: [id number] TPN 250 Intake, IV Titration 9.808 759.109 270.455 Amount Amiodarone 360 mg In 287.221 Dextrose 5% in Water 200 ml @ 1 MG/MIN 33.333 mls/ hr IV .Q6H [facility] Rx#: [id number] Insulin Regular 100 unit 70.372 16.455 In Sodium Chloride 0.9% 100 ml @ Per Protocol IV .Q0M [facility] Rx#:[id number] Norepinephrine 4 mg In 1.036 252.964 254 Sodium Chloride 0.9% 250 ml @ 0.05 MCG/KG/MIN 12. 954 mls/hr IV .[id number] [facility] Rx#:[id number] Propofol 1,000 mg In 8.772 148.552 Empty Bag 1 bag @ Titrate IV .Q0M [facility] Rx#: [id number] Output: Gastric Drainage 300 500 Urine 340 470 360 Estimated Blood Loss 20 Other: Voiding Method Indwelling Catheter Indwelling Catheter ABP, PAP, CO, CI - Last Documented Arterial Blood Pressure 110/44 - Gastrointestinal Gastrointestinal Comment(s): abdomen soft. Ileostomy is pink. There is a large amount of output through the ileostomy. - Labs CBC & Chem 7: 03/22/19 05:30 03/22/19 05:30 Labs: Abnormal Lab Results - Last 24 Hours (Table) 03/21/19 03/21/19 03/21/19 Range/Units 13:45 15:48 16:01 WBC (3.8-10.6) k/uL RBC (4.30-5.90) m/uL Hgb (13.0-17.5) gm/dL Hct (39.0-53.0) % Neutrophils # (1.3-7.7) k/uL Lymphocytes # (1.0-4.8) k/uL Basophils # (0-0.2) k/uL ABG pH (7.35-7.45) ABG pCO2 49 H (35-45) mmHg ABG pO2 126 H (83-108) mmHg ABG HCO3 28 H 28 H (21-25) mmol/L ABG Total CO2 29 H (19-24) mmol/L ABG O2 Saturation 98.4 H (94-97) % Potassium (3.5-5.1) mmol/L BUN (9-20) mg/dL Creatinine (0.66-1.25) mg/dL Glucose (74-99) mg/dL POC Glucose (mg/dL) 170 H (75-99) mg/dL Calcium (8.4-10.2) mg/dL 03/21/19 03/21/19 03/21/19 Range/Units 20:02 20:54 22:00 WBC (3.8-10.6) k/uL RBC (4.30-5.90) m/uL Hgb (13.0-17.5) gm/dL Hct (39.0-53.0) % Neutrophils # (1.3-7.7) k/uL Lymphocytes # (1.0-4.8) k/uL Basophils # (0-0.2) k/uL ABG pH (7.35-7.45) ABG pCO2 (35-45) mmHg ABG pO2 (83-108) mmHg ABG HCO3 (21-25) mmol/L ABG Total CO2 (19-24) mmol/L ABG O2 Saturation (94-97) % Potassium (3.5-5.1) mmol/L BUN (9-20) mg/dL Creatinine (0.66-1.25) mg/dL Glucose (74-99) mg/dL POC Glucose (mg/dL) 274 H 269 H 299 H (75-99) mg/dL Calcium (8.4-10.2) mg/dL 03/21/19 03/22/19 03/22/19 Range/Units 23:26 00:07 01:23 WBC (3.8-10.6) k/uL RBC (4.30-5.90) m/uL Hgb (13.0-17.5) gm/dL Hct (39.0-53.0) % Neutrophils # (1.3-7.7) k/uL Lymphocytes # (1.0-4.8) k/uL Basophils # (0-0.2) k/uL ABG pH (7.35-7.45) ABG pCO2 (35-45) mmHg ABG pO2 (83-108) mmHg ABG HCO3 (21-25) mmol/L ABG Total CO2 (19-24) mmol/L ABG O2 Saturation (94-97) % Potassium (3.5-5.1) mmol/L BUN (9-20) mg/dL Creatinine (0.66-1.25) mg/dL Glucose (74-99) mg/dL POC Glucose (mg/dL) 253 H 289 H 216 H (75-99) mg/dL Calcium (8.4-10.2) mg/dL 03/22/19 03/22/19 03/22/19 Range/Units 02:16 03:00 04:07 WBC (3.8-10.6) k/uL RBC (4.30-5.90) m/uL Hgb (13.0-17.5) gm/dL Hct (39.0-53.0) % Neutrophils # (1.3-7.7) k/uL Lymphocytes # (1.0-4.8) k/uL Basophils # (0-0.2) k/uL ABG pH (7.35-7.45) ABG pCO2 (35-45) mmHg ABG pO2 (83-108) mmHg ABG HCO3 (21-25) mmol/L ABG Total CO2 (19-24) mmol/L ABG O2 Saturation (94-97) % Potassium (3.5-5.1) mmol/L BUN (9-20) mg/dL Creatinine (0.66-1.25) mg/dL Glucose (74-99) mg/dL POC Glucose (mg/dL) 215 H 195 H 170 H (75-99) mg/dL Calcium (8.4-10.2) mg/dL 03/22/19 03/22/19 03/22/19 Range/Units 04:53 04:59 05:30 WBC (3.8-10.6) k/uL RBC (4.30-5.90) m/uL Hgb (13.0-17.5) gm/dL Hct (39.0-53.0) % Neutrophils # (1.3-7.7) k/uL Lymphocytes # (1.0-4.8) k/uL Basophils # (0-0.2) k/uL ABG pH 7.46 H (7.35-7.45) ABG pCO2 (35-45) mmHg ABG pO2 (83-108) mmHg ABG HCO3 28 H (21-25) mmol/L ABG Total CO2 29 H (19-24) mmol/L ABG O2 Saturation (94-97) % Potassium 3.1 L (3.5-5.1) mmol/L BUN 71 H (9-20) mg/dL Creatinine 2.64 H (0.66-1.25) mg/dL Glucose 148 H (74-99) mg/dL POC Glucose (mg/dL) 162 H (75-99) mg/dL Calcium 7.5 L (8.4-10.2) mg/dL 03/22/19 03/22/19 03/22/19 Range/Units 05:30 05:59 07:13 WBC 19.3 H (3.8-10.6) k/uL RBC 3.55 L (4.30-5.90) m/uL Hgb 10.0 L (13.0-17.5) gm/dL Hct 30.5 L (39.0-53.0) % Neutrophils # 17.6 H (1.3-7.7) k/uL Lymphocytes # 0.1 L (1.0-4.8) k/uL Basophils # 0.3 H (0-0.2) k/uL ABG pH (7.35-7.45) ABG pCO2 (35-45) mmHg ABG pO2 (83-108) mmHg ABG HCO3 (21-25) mmol/L ABG Total CO2 (19-24) mmol/L ABG O2 Saturation (94-97) % Potassium (3.5-5.1) mmol/L BUN (9-20) mg/dL Creatinine (0.66-1.25) mg/dL Glucose (74-99) mg/dL POC Glucose (mg/dL) 140 H 109 H (75-99) mg/dL Calcium (8.4-10.2) mg/dL 03/22/19 03/22/19 03/22/19 Range/Units 08:59 10:01 11:10 WBC (3.8-10.6) k/uL RBC (4.30-5.90) m/uL Hgb (13.0-17.5) gm/dL Hct (39.0-53.0) % Neutrophils # (1.3-7.7) k/uL Lymphocytes # (1.0-4.8) k/uL Basophils # (0-0.2) k/uL ABG pH (7.35-7.45) ABG pCO2 (35-45) mmHg ABG pO2 (83-108) mmHg ABG HCO3 (21-25) mmol/L ABG Total CO2 (19-24) mmol/L ABG O2 Saturation (94-97) % Potassium (3.5-5.1) mmol/L BUN (9-20) mg/dL Creatinine (0.66-1.25) mg/dL Glucose (74-99) mg/dL POC Glucose (mg/dL) 153 H 180 H 184 H (75-99) mg/dL Calcium (8.4-10.2) mg/dL 03/22/19 Range/Units 12:04 WBC (3.8-10.6) k/uL RBC (4.30-5.90) m/uL Hgb (13.0-17.5) gm/dL Hct (39.0-53.0) % Neutrophils # (1.3-7.7) k/uL Lymphocytes # (1.0-4.8) k/uL Basophils # (0-0.2) k/uL ABG pH (7.35-7.45) ABG pCO2 (35-45) mmHg ABG pO2 (83-108) mmHg ABG HCO3 (21-25) mmol/L ABG Total CO2 (19-24) mmol/L ABG O2 Saturation (94-97) % Potassium (3.5-5.1) mmol/L BUN (9-20) mg/dL Creatinine (0.66-1.25) mg/dL Glucose (74-99) mg/dL POC Glucose (mg/dL) 184 H (75-99) mg/dL Calcium (8.4-10.2) mg/dL Microbiology - Last 24 Hours (Table) 03/22/19 03:58 Sputum Culture - Preliminary Sputum Assessment and Plan Assessment: status post small bowel resection due to small bowel ischemia and necrosis. Patient will receive supportive care.
--- NOTE | 2019-03-22 13:12 | PN ---
PROGRESS NOTE The patient's electronic medical records reviewed. The patient's events over the last 24 hours reviewed and condition discussed with the nurse taking care of the patient. The patient underwent surgery yesterday. Patient was found to have extensive ischemic small bowel, which was resected and patient has a jejunostomy. The patient converted to the normal sinus rhythm early in the morning. He is currently intubated. The patient has a temperature of 100.5, blood pressure is 135/58 mmHg. First and second heart sounds are heard. Lungs reveal a few scattered wheezes. The patient's urine output is 30 to 50 mL/hour. Patient is on a small dose of Levophed. White count is 19,000, hemoglobin is 10. FINAL IMPRESSION: 1. This patient is status post excision of the small bowel for ischemic bowel. 2. Acute on chronic renal failure, which is stabilized. 3. Paroxysmal atrial fibrillation. Patient is currently on IV amiodarone drip. We will continue amiodarone drip and we will recommend to restart the heparin when it is okay with Dr. Hayes. MMODL / IJN: [id number] /
[2019-03-22 13:20] LABS: Partial Thromboplastin Time 28.6 sec (22.0-30.0); Prothrombin Time 10.3 sec (9.0-12.0)
[2019-03-22] MEDS: HEPARIN SOD,PORK IN 0.45% NACL 25,000 UNIT in 0.45% NACL 1 250ML.BAG IV SCH (13:32)
--- NOTE | 2019-03-22 13:36 | P.PN ---
Subjective Patient is status post laparotomy for a small wall ischemia consider necrosis. The patient the surgical risk is very high as it wasn't emergent surgery patient underwent surgery and patient is presently intubated patient in shock broad- spectrum antibiotics patient on propofol and norepinephrine. Patient was having a low-grade temperatures and patient is presently receiving TPN for nutritional support. Patient has colostomy as well patient has a major three-vessel disease and patient was in A. fib patient of the proximal A. fib presently on amiodarone wasn't is sinus rhythm was sinus tachycardia. Does have history of chronic kidney disease stage III from polycystic kidney Objective - Vital Signs Vital signs: Vital Signs Temp 100.1 F H 03/22/19 12:00 Pulse 117 H 03/22/19 12:00 Resp 24 03/22/19 12:00 BP 123/56 03/22/19 12:00 Pulse Ox 97 03/22/19 12:00 Intake & Output 03/21/19 03/22/19 03/22/19 18:59 06:59 18:59 Intake Total 3492.291 6820.109 940.455 Output Total 660 970 360 Balance 1222.840 0263.109 580.455 Weight 68 kg 72.6 kg Intake: IV 1850 1500 670 .9 800 1300 420 Piperacillin-Tazobactam 3 100 200 .375 gm In Sodium Chloride 0.9% 100 ml @ 25 mls/hr IVPB Q8H [facility] Rx#: [id number] TPN 250 Intake, IV Titration 9.808 759.109 270.455 Amount Amiodarone 360 mg In 287.221 Dextrose 5% in Water 200 ml @ 1 MG/MIN 33.333 mls/ hr IV .Q6H [facility] Rx#: [id number] Insulin Regular 100 unit 70.372 16.455 In Sodium Chloride 0.9% 100 ml @ Per Protocol IV .Q0M [facility] Rx#:[id number] Norepinephrine 4 mg In 1.036 252.964 254 Sodium Chloride 0.9% 250 ml @ 0.05 MCG/KG/MIN 12. 954 mls/hr IV .[id number] [facility] Rx#:[id number] Propofol 1,000 mg In 8.772 148.552 Empty Bag 1 bag @ Titrate IV .Q0M [facility] Rx#: [id number] Output: Gastric Drainage 300 500 Urine 340 470 360 Estimated Blood Loss 20 Other: Voiding Method Indwelling Catheter Indwelling Catheter Indwelling Catheter ABP, PAP, CO, CI - Last Documented Arterial Blood Pressure 110/44 - Exam PHYSICAL EXAMINATION: GENERAL: Intubated sedated, fully catheter in place HEENT: Pupils are round and equally reacting to light. EOMI. No scleral icterus. No conjunctival pallor. Normocephalic, atraumatic. No pharyngeal erythema. No thyromegaly. CARDIOVASCULAR: S1 and S2 present. No murmurs, rubs, or gallops. Tachycardic PULMONARY: Bilateral expiratory wheezing was appreciated ABDOMEN: Bowel sounds are absent jejunostomy tube in place MUSCULOSKELETAL: No joint swelling or deformity. EXTREMITIES: No cyanosis, clubbing, or pedal edema. NEUROLOGICAL: Gross neurological examination did not reveal any focal deficits. SKIN: No rashes. - Labs CBC & Chem 7: 03/22/19 05:30 03/22/19 12:00 Labs: Abnormal Lab Results - Last 24 Hours (Table) 03/21/19 03/21/19 03/21/19 Range/Units 13:45 15:48 16:01 WBC (3.8-10.6) k/uL RBC (4.30-5.90) m/uL Hgb (13.0-17.5) gm/dL Hct (39.0-53.0) % Neutrophils # (1.3-7.7) k/uL Lymphocytes # (1.0-4.8) k/uL Basophils # (0-0.2) k/uL ABG pH (7.35-7.45) ABG pCO2 49 H (35-45) mmHg ABG pO2 126 H (83-108) mmHg ABG HCO3 28 H 28 H (21-25) mmol/L ABG Total CO2 29 H (19-24) mmol/L ABG O2 Saturation 98.4 H (94-97) % Potassium (3.5-5.1) mmol/L BUN (9-20) mg/dL Creatinine (0.66-1.25) mg/dL Glucose (74-99) mg/dL POC Glucose (mg/dL) 170 H (75-99) mg/dL Calcium (8.4-10.2) mg/dL 03/21/19 03/21/19 03/21/19 Range/Units 20:02 20:54 22:00 WBC (3.8-10.6) k/uL RBC (4.30-5.90) m/uL Hgb (13.0-17.5) gm/dL Hct (39.0-53.0) % Neutrophils # (1.3-7.7) k/uL Lymphocytes # (1.0-4.8) k/uL Basophils # (0-0.2) k/uL ABG pH (7.35-7.45) ABG pCO2 (35-45) mmHg ABG pO2 (83-108) mmHg ABG HCO3 (21-25) mmol/L ABG Total CO2 (19-24) mmol/L ABG O2 Saturation (94-97) % Potassium (3.5-5.1) mmol/L BUN (9-20) mg/dL Creatinine (0.66-1.25) mg/dL Glucose (74-99) mg/dL POC Glucose (mg/dL) 274 H 269 H 299 H (75-99) mg/dL Calcium (8.4-10.2) mg/dL 03/21/19 03/22/19 03/22/19 Range/Units 23:26 00:07 01:23 WBC (3.8-10.6) k/uL RBC (4.30-5.90) m/uL Hgb (13.0-17.5) gm/dL Hct (39.0-53.0) % Neutrophils # (1.3-7.7) k/uL Lymphocytes # (1.0-4.8) k/uL Basophils # (0-0.2) k/uL ABG pH (7.35-7.45) ABG pCO2 (35-45) mmHg ABG pO2 (83-108) mmHg ABG HCO3 (21-25) mmol/L ABG Total CO2 (19-24) mmol/L ABG O2 Saturation (94-97) % Potassium (3.5-5.1) mmol/L BUN (9-20) mg/dL Creatinine (0.66-1.25) mg/dL Glucose (74-99) mg/dL POC Glucose (mg/dL) 253 H 289 H 216 H (75-99) mg/dL Calcium (8.4-10.2) mg/dL 03/22/19 03/22/19 03/22/19 Range/Units 02:16 03:00 04:07 WBC (3.8-10.6) k/uL RBC (4.30-5.90) m/uL Hgb (13.0-17.5) gm/dL Hct (39.0-53.0) % Neutrophils # (1.3-7.7) k/uL Lymphocytes # (1.0-4.8) k/uL Basophils # (0-0.2) k/uL ABG pH (7.35-7.45) ABG pCO2 (35-45) mmHg ABG pO2 (83-108) mmHg ABG HCO3 (21-25) mmol/L ABG Total CO2 (19-24) mmol/L ABG O2 Saturation (94-97) % Potassium (3.5-5.1) mmol/L BUN (9-20) mg/dL Creatinine (0.66-1.25) mg/dL Glucose (74-99) mg/dL POC Glucose (mg/dL) 215 H 195 H 170 H (75-99) mg/dL Calcium (8.4-10.2) mg/dL 03/22/19 03/22/19 03/22/19 Range/Units 04:53 04:59 05:30 WBC (3.8-10.6) k/uL RBC (4.30-5.90) m/uL Hgb (13.0-17.5) gm/dL Hct (39.0-53.0) % Neutrophils # (1.3-7.7) k/uL Lymphocytes # (1.0-4.8) k/uL Basophils # (0-0.2) k/uL ABG pH 7.46 H (7.35-7.45) ABG pCO2 (35-45) mmHg ABG pO2 (83-108) mmHg ABG HCO3 28 H (21-25) mmol/L ABG Total CO2 29 H (19-24) mmol/L ABG O2 Saturation (94-97) % Potassium 3.1 L (3.5-5.1) mmol/L BUN 71 H (9-20) mg/dL Creatinine 2.64 H (0.66-1.25) mg/dL Glucose 148 H (74-99) mg/dL POC Glucose (mg/dL) 162 H (75-99) mg/dL Calcium 7.5 L (8.4-10.2) mg/dL 03/22/19 03/22/19 03/22/19 Range/Units 05:30 05:59 07:13 WBC 19.3 H (3.8-10.6) k/uL RBC 3.55 L (4.30-5.90) m/uL Hgb 10.0 L (13.0-17.5) gm/dL Hct 30.5 L (39.0-53.0) % Neutrophils # 17.6 H (1.3-7.7) k/uL Lymphocytes # 0.1 L (1.0-4.8) k/uL Basophils # 0.3 H (0-0.2) k/uL ABG pH (7.35-7.45) ABG pCO2 (35-45) mmHg ABG pO2 (83-108) mmHg ABG HCO3 (21-25) mmol/L ABG Total CO2 (19-24) mmol/L ABG O2 Saturation (94-97) % Potassium (3.5-5.1) mmol/L BUN (9-20) mg/dL Creatinine (0.66-1.25) mg/dL Glucose (74-99) mg/dL POC Glucose (mg/dL) 140 H 109 H (75-99) mg/dL Calcium (8.4-10.2) mg/dL 03/22/19 03/22/19 03/22/19 Range/Units 08:59 10:01 11:10 WBC (3.8-10.6) k/uL RBC (4.30-5.90) m/uL Hgb (13.0-17.5) gm/dL Hct (39.0-53.0) % Neutrophils # (1.3-7.7) k/uL Lymphocytes # (1.0-4.8) k/uL Basophils # (0-0.2) k/uL ABG pH (7.35-7.45) ABG pCO2 (35-45) mmHg ABG pO2 (83-108) mmHg ABG HCO3 (21-25) mmol/L ABG Total CO2 (19-24) mmol/L ABG O2 Saturation (94-97) % Potassium (3.5-5.1) mmol/L BUN (9-20) mg/dL Creatinine (0.66-1.25) mg/dL Glucose (74-99) mg/dL POC Glucose (mg/dL) 153 H 180 H 184 H (75-99) mg/dL Calcium (8.4-10.2) mg/dL 03/22/19 03/22/19 Range/Units 12:00 12:04 WBC (3.8-10.6) k/uL RBC (4.30-5.90) m/uL Hgb (13.0-17.5) gm/dL Hct (39.0-53.0) % Neutrophils # (1.3-7.7) k/uL Lymphocytes # (1.0-4.8) k/uL Basophils # (0-0.2) k/uL ABG pH (7.35-7.45) ABG pCO2 (35-45) mmHg ABG pO2 (83-108) mmHg ABG HCO3 (21-25) mmol/L ABG Total CO2 (19-24) mmol/L ABG O2 Saturation (94-97) % Potassium 3.4 L (3.5-5.1) mmol/L BUN (9-20) mg/dL Creatinine (0.66-1.25) mg/dL Glucose (74-99) mg/dL POC Glucose (mg/dL) 184 H (75-99) mg/dL Calcium (8.4-10.2) mg/dL Microbiology - Last 24 Hours (Table) 03/22/19 03:58 Gram Stain - Preliminary Sputum Sputum Culture - Preliminary Assessment and Plan Plan: Septic shock patient is on pressor support and the sepsis secondary to ischemic bowel. Patient is status post laparotomy and is on Zosyn. -Coronary artery disease severe multivessel 33 vessel disease patient had dyspnea for 40-45% with mitral regurgitation need to closely monitor for any volume overload need to be cautious with IV fluids patient is on antiplatelet statin for this -Proximal A. fib presently sinus rhythm with PVCs and patient is on amiodarone drip which will be continued -Ventilator dependent respiratory failure secondary to sepsis management as per pulmonology -Severe pulmonary hypertension -Hyperlipidemia -Type 2 diabetes mellitus continue with present regimen depending on his sliding scale requirements with titrate the insulin regimen -Chronic kidney disease stage III with some acute kidney injury from sepsis and acute tubular necrosis chronic kidney disease secondary to diabetic nephropathy -COPD with acute exacerbation -Polycystic kidney disease -Hypertension patient is presently hypotensive and is in shock -History of bladder cancer with TURP in the past Patient's overall prognosis is poor his clinical condition is guarded now
[2019-03-22 13:56] LABS: Glucose,Whole Blood 125 mg/dL (75-99)
[2019-03-22 15:42] LABS: Glucose,Whole Blood 121 mg/dL (75-99)
[2019-03-22 16:53] LABS: Glucose,Whole Blood 111 mg/dL (75-99)
[2019-03-22 18:10] LABS: Glucose,Whole Blood 119 mg/dL (75-99)
[2019-03-22 19:45] LABS: Glucose,Whole Blood 117 mg/dL (75-99)
[2019-03-22 20:29] LABS: Glucose,Whole Blood 118 mg/dL (75-99)
[2019-03-22] MEDS: ATORVASTATIN 80 MG TAB PO SCH (20:54)
[2019-03-22 21:31] LABS: Glucose,Whole Blood 120 mg/dL (75-99)
[2019-03-22 22:10] LABS: Glucose,Whole Blood 140 mg/dL (75-99)
[2019-03-22] MEDS: HEPARIN SODIUM,PORCINE 5,000 UNIT/ML 1 ML VIAL IV PRN (22:47)
[2019-03-22 23:13] LABS: Glucose,Whole Blood 153 mg/dL (75-99)
[2019-03-23] LABS: Glucose,Whole Blood 166 mg/dL (75-99)
[2019-03-23] MEDS: 1: MVI, ADULT NO.4 WITH VIT K 10 ML, TRACE (CONC-1ML/DOSE) 1 ML, PARENTERAL ELECTROLYTES IV SCH ×12 (00:33→00:53)
[2019-03-23 01:01] LABS: Glucose,Whole Blood 135 mg/dL (75-99)
[2019-03-23] MEDS: AMIODARONE 360 MG in DEXTROSE 5% IN WATER 200 ML IV SCH ×4 (01:40→11:22)
[2019-03-23 02:04] LABS: Glucose,Whole Blood 141 mg/dL (75-99)
[2019-03-23 03:05] LABS: Glucose,Whole Blood 179 mg/dL (75-99)
[2019-03-23 04:27] LABS: Glucose,Whole Blood 182 mg/dL (75-99)
[2019-03-23] MEDS: PIPERACILLIN-TAZOBACTAM 3.375 GM in SODIUM CHLORIDE 0.9% 100 ML IVPB SCH ×3 (04:33→20:33)
[2019-03-23 05:28] LABS: Glucose,Whole Blood 170 mg/dL (75-99)
[2019-03-23 05:44] LABS: ABG PCO2 36 mmHg (35-45); ABG PH 7.45 (7.35-7.45); ABG PO2 125 mmHg (83-108); Allen Test Performed? Yes
[2019-03-23 05:45] LABS: ABG Base Excess 1.5 mmol/L; ABG HCO3 25 mmol/L (21-25); ABG TCO2 27 mmol/L (19-24)
--- NOTE | 2019-03-23 06:11 | XR ---
EXAMINATION TYPE: XR chest 1V portable DATE OF EXAM: 03/23/2019 HISTORY: Tube placement. REFERENCE: Previous study dated 03/22/2019. FINDINGS: The patient is ET tube, NG tube and left internal jugular catheter remain in place, unchang ed in appearance. The kidneys to be left basilar airspace disease. There is improved aeration in the right lung base. H eart size upper limits of normal. There are small, bilateral effusions. IMPRESSION: 1. IMPROVED AERATION RIGHT LUNG BASE. 2. CONTINUING LEFT BASILAR AIRSPACE DISEASE. 3. SMALL, BILATERAL EFFUSIONS.
[2019-03-23 06:12] LABS: Glucose,Whole Blood 157 mg/dL (75-99)
[2019-03-23 06:18] LABS: Basophils # (A) 0.1 k/uL (0-0.2); Basophils % (A) 0 %; Eosinophils # (A) 0.1 k/uL (0-0.7); Eosinophils % (A) 1 %; HCT 28.7 % (39.0-53.0); HGB 9.4 gm/dL (13.0-17.5); Lymphocytes # (A) 0.5 k/uL (1.0-4.8); Lymphocytes % (A) 2 %; MCH 28.3 pg (25.0-35.0); MCHC 32.7 g/dL (31.0-37.0); MCV 86.4 fL (80.0-100.0); Mean Platelet Volume 9.7; Monocytes # (A) 0.9 k/uL (0-1.0); Monocytes % (A) 4 %; Neutrophils # (A) 19.4 k/uL (1.3-7.7); Neutrophils % (A) 91 %; Platelet Count 210 k/uL (150-450); RBC 3.32 m/uL (4.30-5.90); RDW 14.7 % (11.5-15.5); WBC 21.2 k/uL (3.8-10.6)
[2019-03-23] MEDS: NOREPINEPHRINE 4 MG in SODIUM CHLORIDE 0.9% 250 ML IV SCH (06:30)
[2019-03-23 06:49] LABS: Calcium 7.4 mg/dL (8.4-10.2); Magnesium 2.3 mg/dL (1.6-2.3); Phosphorus 2.6 mg/dL (2.5-4.5); Potassium 3.4 mmol/L (3.5-5.1)
[2019-03-23 06:59] LABS: Glucose,Whole Blood 159 mg/dL (75-99)
[2019-03-23] MEDS: IPRATROPIUM-ALBUTEROL 3 ML NEB INHALATION SCH ×4 (07:31→19:39)
[2019-03-23] MEDS: FORMOTEROL FUMARATE 20 MCG/2 ML NEBU INHALATION SCH ×2 (07:31→19:39)
[2019-03-23] MEDS: BUDESONIDE 1 MG/2 ML NEBU INHALATION SCH ×2 (07:31→19:39)
[2019-03-23 07:57] LABS: Glucose,Whole Blood 162 mg/dL (75-99)
[2019-03-23] MEDS: POTASSIUM CHLORIDE 20 MEQ in WATER FOR INJECTION 1 100ML.BAG IVPB SCH ×2 (08:24→10:28)
[2019-03-23] MEDS: PANTOPRAZOLE 40 MG/10 ML VIAL IVP SCH (08:25)
[2019-03-23] MEDS: CHLORHEXIDINE GLUCONATE 15 ML CUP MUCOUS MEM SCH ×2 (08:25→20:33)
[2019-03-23] MEDS: SODIUM CHLORIDE 0.9% 1,000 ML IV SCH ×2 (08:26→18:08)
[2019-03-23] MEDS: PROPOFOL 1,000 MG in EMPTY BAG 1 BAG IV SCH (08:26)
[2019-03-23] MEDS: ASPIRIN 81 MG PO SCH (08:41)
[2019-03-23] MEDS: FENOFIBRATE 160 MG TAB PO SCH (08:41)
[2019-03-23 10:14] LABS: Glucose,Whole Blood 180 mg/dL (75-99)
[2019-03-23] MEDS ORDERED: FUROSEMIDE 10 MG/ML 4 ML VIAL IV STA (11:19)
--- NOTE | 2019-03-23 11:20 | P.PN ---
Subjective Progress Note Date: 03/23/19 On 03/23/2019 patient is being seen in follow-up. He is postop day #2 following his bowel surgery with diverting jejunostomy and resection of the ileum and part of the jejunum. The patient is was sedated and is calm and comfortable on propofol this morning running at the rate of 35 g per KG per minute. He is easily arousable. He remains on a mechanical ventilator. His assist-control mode at the rate of 12 with tidal volume of 500 and FiO2 of 50% with a PEEP of 5. His chest x-ray from today shows improved aeration in the right lung base. There is some basilar airspace disease is still present along with some small bilateral pleural effusion. ET tube is in a good location. The patient also has a left IJ triple-lumen catheter in place. His blood gases from today shows a pH of 7.45 with a pCO2 of 36 and pO2 of 125. He has no major respiratory secretions. Hemodynamically, the patient is on IV fluids with normal saline at the rate of 100. He is producing excellent urine output. He is taken minimal amount of pressors at a dose of 0.06 g of norepinephrine infusion per KG per minute. The patient is in a normal sinus rhythm. Amiodarone drip was discontinued as the patient was developing some sinus bradycardia. He has an excellent urine output. His white cell count is at 21. He was at 9.4. His creatinine is down to 2.1 with a BUN of 66. No significant metabolic acidosis. No cardiac arrhythmias. NG tube is in place and output is in order of 100 mL over the past 8 hours. He has positive output and his jejunostomy bag for now. He is afebrile.Note that the patient has COPD,, his FEV1 is normal to 52% of predicted, he has history of diabetes and history of bladder cancer and he has history of stage III kidney disease with polycystic kidney disease disorder. Objective - Vital Signs Vital signs: Vital Signs Temp 98.7 F 03/23/19 04:00 Pulse 60 03/23/19 10:00 Resp 24 03/23/19 10:00 BP 122/58 03/23/19 08:00 Pulse Ox 99 03/23/19 10:00 Intake & Output 03/22/19 03/23/19 03/23/19 18:59 06:59 18:59 Intake Total 2296.877 3089.926 1102.655 Output Total 6333 899 0515 Balance 6210.262 9024.926 67.655 Weight 72.6 kg 76.9 kg Intake: IV 1730 2081 1015 .9 1020 1200 500 Piperacillin-Tazobactam 3 100 .375 gm In Sodium Chloride 0.9% 100 ml @ 25 mls/hr IVPB Q8H [facility] Rx#: [id number] Potassium Chloride 20 meq 100 In Water For Injection 1 100ml.bag @ 50 mls/hr IVPB ONCE ONE Rx#: [id number] TPN 610 881 415 Intake, IV Titration 566.877 888.926 87.655 Amount Amiodarone 360 mg In 200 396.665 Dextrose 5% in Water 200 ml @ 1 MG/MIN 33.333 mls/ hr IV .Q6H [facility] Rx#: [id number] Heparin Sod,Pork in 0.45% 81.312 NaCl 25,000 unit In 0.45 % NaCl 1 250ml.bag @ 12 UNITS/KG/HR 8.712 mls/hr IV .Q24H [facility] Rx#: [id number] Insulin Regular 100 unit 26.959 29.282 In Sodium Chloride 0.9% 100 ml @ Per Protocol IV .Q0M [facility] Rx#:[id number] Mvi, Adult No.4 with Vit 27.667 K 10 ml Trace (Conc-1Ml/ Dose) 1 ml Parenteral Electrolytes 20 ml In Amino Acid 4.25%-D10w 1, 000 ml @ 83 mls/hr IV .BY DURATION [facility] Rx#: [id number] Norepinephrine 4 mg In 254 254 87.655 Sodium Chloride 0.9% 250 ml @ 0.05 MCG/KG/MIN 12. 954 mls/hr IV .[id number] [facility] Rx#:[id number] Propofol 1,000 mg In 85.918 100 Empty Bag 1 bag @ Titrate IV .Q0M [facility] Rx#: [id number] Oral 120 Output: Urine 635 685 335 Stool 500 700 Other: Voiding Method Indwelling Catheter Indwelling Catheter ABP, PAP, CO, CI - Last Documented Arterial Blood Pressure 152/46 - Exam Gen. appearance the patient his, comfortable intubated on a mechanical ventilator and orogastric and orotracheal tube are both in place. Head exam was generally normal. There was no scleral icterus or corneal arcus. Mucous membranes were moist. Neck was supple and without jugular venous distension, thyromegaly, or carotid bruits. Carotids were easily palpable bilaterally. There was no adenopathy. Lungs sounds are diminished bilaterally along with scattered expiratory wheezes throughout the lung his bilaterally. Heart sounds are distant. Otherwise, Cardiac exam revealed the PMI to be normally situated and sized. The rhythm was Heart rate is irregular based on the fact that he is swallowing a lot of PVCs and PACs and is out of atrial fibrillation for now nd no extrasystoles were noted during several minutes of auscultation. The first and second heart sounds were normal and physiologic splitting of the second heart sound was noted. There were no murmurs, rubs, clicks, or gallops. Abdominal exam reveals absent absent bowel sounds, jejunostomy site is viable and there is some liquidy material collecting in the back. The patient also has a mid abdominal incision which is dry clean and intact at this point in time.. Examination of the extremities revealed easily palpable radial, femoral and pedal pulses. There was no cyanosis, clubbing or edema. Examination of the skin revealed no evidence of significant rashes, suspicious appearing nevi or other concerning lesions. Neurologically he is was sedated with propofol and is calm and comfortable. - Labs CBC & Chem 7: 03/23/19 05:50 03/23/19 05:50 Labs: Abnormal Lab Results - Last 24 Hours (Table) 03/22/19 03/22/19 03/22/19 Range/Units 11:10 12:00 12:04 WBC (3.8-10.6) k/uL RBC (4.30-5.90) m/uL Hgb (13.0-17.5) gm/dL Hct (39.0-53.0) % Neutrophils # (1.3-7.7) k/uL Lymphocytes # (1.0-4.8) k/uL APTT (22.0-30.0) sec ABG pO2 (83-108) mmHg ABG Total CO2 (19-24) mmol/L ABG O2 Saturation (94-97) % Sodium (137-145) mmol/L Potassium 3.4 L (3.5-5.1) mmol/L BUN (9-20) mg/dL Creatinine (0.66-1.25) mg/dL Glucose (74-99) mg/dL POC Glucose (mg/dL) 184 H 184 H (75-99) mg/dL Calcium (8.4-10.2) mg/dL 03/22/19 03/22/19 03/22/19 Range/Units 13:55 15:40 16:52 WBC (3.8-10.6) k/uL RBC (4.30-5.90) m/uL Hgb (13.0-17.5) gm/dL Hct (39.0-53.0) % Neutrophils # (1.3-7.7) k/uL Lymphocytes # (1.0-4.8) k/uL APTT (22.0-30.0) sec ABG pO2 (83-108) mmHg ABG Total CO2 (19-24) mmol/L ABG O2 Saturation (94-97) % Sodium (137-145) mmol/L Potassium (3.5-5.1) mmol/L BUN (9-20) mg/dL Creatinine (0.66-1.25) mg/dL Glucose (74-99) mg/dL POC Glucose (mg/dL) 125 H 121 H 111 H (75-99) mg/dL Calcium (8.4-10.2) mg/dL 03/22/19 03/22/19 03/22/19 Range/Units 18:09 19:40 20:18 WBC (3.8-10.6) k/uL RBC (4.30-5.90) m/uL Hgb (13.0-17.5) gm/dL Hct (39.0-53.0) % Neutrophils # (1.3-7.7) k/uL Lymphocytes # (1.0-4.8) k/uL APTT (22.0-30.0) sec ABG pO2 (83-108) mmHg ABG Total CO2 (19-24) mmol/L ABG O2 Saturation (94-97) % Sodium (137-145) mmol/L Potassium (3.5-5.1) mmol/L BUN (9-20) mg/dL Creatinine (0.66-1.25) mg/dL Glucose (74-99) mg/dL POC Glucose (mg/dL) 119 H 117 H 118 H (75-99) mg/dL Calcium (8.4-10.2) mg/dL 03/22/19 03/22/19 03/22/19 Range/Units 20:28 21:30 22:08 WBC (3.8-10.6) k/uL RBC (4.30-5.90) m/uL Hgb (13.0-17.5) gm/dL Hct (39.0-53.0) % Neutrophils # (1.3-7.7) k/uL Lymphocytes # (1.0-4.8) k/uL APTT 38.6 H (22.0-30.0) sec ABG pO2 (83-108) mmHg ABG Total CO2 (19-24) mmol/L ABG O2 Saturation (94-97) % Sodium (137-145) mmol/L Potassium (3.5-5.1) mmol/L BUN (9-20) mg/dL Creatinine (0.66-1.25) mg/dL Glucose (74-99) mg/dL POC Glucose (mg/dL) 120 H 140 H (75-99) mg/dL Calcium (8.4-10.2) mg/dL 03/22/19 03/22/19 03/23/19 Range/Units 23:12 23:58 00:58 WBC (3.8-10.6) k/uL RBC (4.30-5.90) m/uL Hgb (13.0-17.5) gm/dL Hct (39.0-53.0) % Neutrophils # (1.3-7.7) k/uL Lymphocytes # (1.0-4.8) k/uL APTT (22.0-30.0) sec ABG pO2 (83-108) mmHg ABG Total CO2 (19-24) mmol/L ABG O2 Saturation (94-97) % Sodium (137-145) mmol/L Potassium (3.5-5.1) mmol/L BUN (9-20) mg/dL Creatinine (0.66-1.25) mg/dL Glucose (74-99) mg/dL POC Glucose (mg/dL) 153 H 166 H 135 H (75-99) mg/dL Calcium (8.4-10.2) mg/dL 03/23/19 03/23/19 03/23/19 Range/Units 02:02 03:04 04:25 WBC (3.8-10.6) k/uL RBC (4.30-5.90) m/uL Hgb (13.0-17.5) gm/dL Hct (39.0-53.0) % Neutrophils # (1.3-7.7) k/uL Lymphocytes # (1.0-4.8) k/uL APTT (22.0-30.0) sec ABG pO2 (83-108) mmHg ABG Total CO2 (19-24) mmol/L ABG O2 Saturation (94-97) % Sodium (137-145) mmol/L Potassium (3.5-5.1) mmol/L BUN (9-20) mg/dL Creatinine (0.66-1.25) mg/dL Glucose (74-99) mg/dL POC Glucose (mg/dL) 141 H 179 H 182 H (75-99) mg/dL Calcium (8.4-10.2) mg/dL 03/23/19 03/23/19 03/23/19 Range/Units 05:08 05:26 05:50 WBC (3.8-10.6) k/uL RBC (4.30-5.90) m/uL Hgb (13.0-17.5) gm/dL Hct (39.0-53.0) % Neutrophils # (1.3-7.7) k/uL Lymphocytes # (1.0-4.8) k/uL APTT (22.0-30.0) sec ABG pO2 125 H (83-108) mmHg ABG Total CO2 27 H (19-24) mmol/L ABG O2 Saturation 99.0 H (94-97) % Sodium 136 L (137-145) mmol/L Potassium 3.4 L (3.5-5.1) mmol/L BUN 66 H (9-20) mg/dL Creatinine 2.10 H (0.66-1.25) mg/dL Glucose 155 H (74-99) mg/dL POC Glucose (mg/dL) 170 H (75-99) mg/dL Calcium 7.4 L (8.4-10.2) mg/dL 12/21/19 12/21/19 12/21/19 Range/Units 05:50 05:50 06:11 WBC 21.2 H (3.8-10.6) k/uL RBC 3.32 L (4.30-5.90) m/uL Hgb 9.4 L (13.0-17.5) gm/dL Hct 28.7 L (39.0-53.0) % Neutrophils # 19.4 H (1.3-7.7) k/uL Lymphocytes # 0.5 L (1.0-4.8) k/uL APTT 52.4 H (22.0-30.0) sec ABG pO2 (83-108) mmHg ABG Total CO2 (19-24) mmol/L ABG O2 Saturation (94-97) % Sodium (137-145) mmol/L Potassium (3.5-5.1) mmol/L BUN (9-20) mg/dL Creatinine (0.66-1.25) mg/dL Glucose (74-99) mg/dL POC Glucose (mg/dL) 157 H (75-99) mg/dL Calcium (8.4-10.2) mg/dL 03/23/19 03/23/19 03/23/19 Range/Units 06:58 07:55 10:13 WBC (3.8-10.6) k/uL RBC (4.30-5.90) m/uL Hgb (13.0-17.5) gm/dL Hct (39.0-53.0) % Neutrophils # (1.3-7.7) k/uL Lymphocytes # (1.0-4.8) k/uL APTT (22.0-30.0) sec ABG pO2 (83-108) mmHg ABG Total CO2 (19-24) mmol/L ABG O2 Saturation (94-97) % Sodium (137-145) mmol/L Potassium (3.5-5.1) mmol/L BUN (9-20) mg/dL Creatinine (0.66-1.25) mg/dL Glucose (74-99) mg/dL POC Glucose (mg/dL) 159 H 162 H 180 H (75-99) mg/dL Calcium (8.4-10.2) mg/dL Microbiology - Last 24 Hours (Table) 03/22/19 03:58 Gram Stain - Preliminary Sputum Sputum Culture - Preliminary Assessment and Plan Plan: 1 acute ischemic small bowel post exploratory laparotomy and excision of the neck shows that bowel involving the small bowel and the patient underwent a ileal and jejunal resection and the patient had a diverting jejunostomy. The patient is currently postop day #2. the patient is hemodynamically doing well. He is currently on pressors which is running at 0.06 g per KG per minute of norepinephrine infusion. He has received adequate fluid resuscitation. He is on broad-spectrum antibiotic with IV Zosyn. He has good urine output. Pressors are being gradually weaned off. 2 severe multivessel coronary artery disease, post non-STEMI and the patient was being considered for cardiac revascularization surgery. Ejection fraction was around 35-40% and he has severe pulmonary hypertension with elevated left ventricular end-diastolic pressure in addition to bilateral pleural effusions. IAN showed improved ejection fraction of 40-45%, +2 mitral regurgitation. The patient was being considered for bypass surgery and valve repair he had the surgery got canceled 3 paroxysmal atrial fibrillation , currently rhythm is sinus and the patient will be switched to oral amiodarone. 4 severe pulmonary hypertension with possible mitral regurgitation moderate to severe, 5 hyperlipidemia 6 diabetes mellitus, currently on insulin drip for blood sugar control 7 chronic stage III kidney failure, with a component of acute kidney injury secondary to intravascular volume depletion and possibly ischemic bowel and sepsis. The renal function is improving and creatinine is down to 2.1 and the patient is producing adequate amount of urine output 8 COPD with history of chronic smoking 9 polycystic kidney disease 10 history of bladder cancer post-transurethral resection followed by intravesicular chemotherapy 11 TPN for nutritional support 12 carotid artery stenosis , plaque with stenosis bilaterally left more than right 14 hypertension, history of plan Clinically improving Wean off pressors Give a dose of Lasix 40 mg IV push Discontinue sedation and give the patient a sedation holiday Check weaning parameters and assess candidacy for weaning and give the patient spontaneous breathing trial Renal function is improving Continue TPN for nutritional support Discontinue IV amiodarone and switch this patient oral amiodarone Chest x-ray blood gases and the rest of labs are all reviewed and the case was discussed with cardiology Condition is still critical and will continue to follow Critically care evaluation, more than 30 minutes Time with Patient: Greater than 30
--- NOTE | 2019-03-23 11:22 | P.PN ---
Subjective Progress Note Date: 03/23/19 Principal diagnosis: ischemic bowel the patient remains on the ventilator. Apparently he is going to have his sedation removed today. He has had output through his ileostomy. His white count is slightly decreased to 21,000. Objective - Vital Signs Vital signs: Vital Signs Temp 98.7 F 03/23/19 04:00 Pulse 60 03/23/19 10:00 Resp 24 03/23/19 10:00 BP 122/58 03/23/19 08:00 Pulse Ox 99 03/23/19 10:00 Intake & Output 03/22/19 03/23/19 03/23/19 18:59 06:59 18:59 Intake Total 2296.877 3089.926 1102.655 Output Total 5016 498 5340 Balance 6119.363 3453.926 67.655 Weight 72.6 kg 76.9 kg Intake: IV 1730 2081 1015 .9 1020 1200 500 Piperacillin-Tazobactam 3 100 .375 gm In Sodium Chloride 0.9% 100 ml @ 25 mls/hr IVPB Q8H [facility] Rx#: [id number] Potassium Chloride 20 meq 100 In Water For Injection 1 100ml.bag @ 50 mls/hr IVPB ONCE ONE Rx#: [id number] TPN 610 881 415 Intake, IV Titration 566.877 888.926 87.655 Amount Amiodarone 360 mg In 200 396.665 Dextrose 5% in Water 200 ml @ 1 MG/MIN 33.333 mls/ hr IV .Q6H [facility] Rx#: [id number] Heparin Sod,Pork in 0.45% 81.312 NaCl 25,000 unit In 0.45 % NaCl 1 250ml.bag @ 12 UNITS/KG/HR 8.712 mls/hr IV .Q24H [facility] Rx#: [id number] Insulin Regular 100 unit 26.959 29.282 In Sodium Chloride 0.9% 100 ml @ Per Protocol IV .Q0M [facility] Rx#:[id number] Mvi, Adult No.4 with Vit 27.667 K 10 ml Trace (Conc-1Ml/ Dose) 1 ml Parenteral Electrolytes 20 ml In Amino Acid 4.25%-D10w 1, 000 ml @ 83 mls/hr IV .BY DURATION [facility] Rx#: [id number] Norepinephrine 4 mg In 254 254 87.655 Sodium Chloride 0.9% 250 ml @ 0.05 MCG/KG/MIN 12. 954 mls/hr IV .[id number] [facility] Rx#:[id number] Propofol 1,000 mg In 85.918 100 Empty Bag 1 bag @ Titrate IV .Q0M [facility] Rx#: [id number] Oral 120 Output: Urine 635 685 335 Stool 500 700 Other: Voiding Method Indwelling Catheter Indwelling Catheter ABP, PAP, CO, CI - Last Documented Arterial Blood Pressure 152/46 - Gastrointestinal Gastrointestinal Comment(s): abdomen soft. Incision sites clean and intact. Ileostomy is pink. - Labs CBC & Chem 7: 03/23/19 05:50 03/23/19 05:50 Labs: Abnormal Lab Results - Last 24 Hours (Table) 03/22/19 03/22/19 03/22/19 Range/Units 12:00 12:04 13:55 WBC (3.8-10.6) k/uL RBC (4.30-5.90) m/uL Hgb (13.0-17.5) gm/dL Hct (39.0-53.0) % Neutrophils # (1.3-7.7) k/uL Lymphocytes # (1.0-4.8) k/uL APTT (22.0-30.0) sec ABG pO2 (83-108) mmHg ABG Total CO2 (19-24) mmol/L ABG O2 Saturation (94-97) % Sodium (137-145) mmol/L Potassium 3.4 L (3.5-5.1) mmol/L BUN (9-20) mg/dL Creatinine (0.66-1.25) mg/dL Glucose (74-99) mg/dL POC Glucose (mg/dL) 184 H 125 H (75-99) mg/dL Calcium (8.4-10.2) mg/dL 03/22/19 03/22/19 03/22/19 Range/Units 15:40 16:52 18:09 WBC (3.8-10.6) k/uL RBC (4.30-5.90) m/uL Hgb (13.0-17.5) gm/dL Hct (39.0-53.0) % Neutrophils # (1.3-7.7) k/uL Lymphocytes # (1.0-4.8) k/uL APTT (22.0-30.0) sec ABG pO2 (83-108) mmHg ABG Total CO2 (19-24) mmol/L ABG O2 Saturation (94-97) % Sodium (137-145) mmol/L Potassium (3.5-5.1) mmol/L BUN (9-20) mg/dL Creatinine (0.66-1.25) mg/dL Glucose (74-99) mg/dL POC Glucose (mg/dL) 121 H 111 H 119 H (75-99) mg/dL Calcium (8.4-10.2) mg/dL 03/22/19 03/22/19 03/22/19 Range/Units 19:40 20:18 20:28 WBC (3.8-10.6) k/uL RBC (4.30-5.90) m/uL Hgb (13.0-17.5) gm/dL Hct (39.0-53.0) % Neutrophils # (1.3-7.7) k/uL Lymphocytes # (1.0-4.8) k/uL APTT 38.6 H (22.0-30.0) sec ABG pO2 (83-108) mmHg ABG Total CO2 (19-24) mmol/L ABG O2 Saturation (94-97) % Sodium (137-145) mmol/L Potassium (3.5-5.1) mmol/L BUN (9-20) mg/dL Creatinine (0.66-1.25) mg/dL Glucose (74-99) mg/dL POC Glucose (mg/dL) 117 H 118 H (75-99) mg/dL Calcium (8.4-10.2) mg/dL 03/22/19 03/22/19 03/22/19 Range/Units 21:30 22:08 23:12 WBC (3.8-10.6) k/uL RBC (4.30-5.90) m/uL Hgb (13.0-17.5) gm/dL Hct (39.0-53.0) % Neutrophils # (1.3-7.7) k/uL Lymphocytes # (1.0-4.8) k/uL APTT (22.0-30.0) sec ABG pO2 (83-108) mmHg ABG Total CO2 (19-24) mmol/L ABG O2 Saturation (94-97) % Sodium (137-145) mmol/L Potassium (3.5-5.1) mmol/L BUN (9-20) mg/dL Creatinine (0.66-1.25) mg/dL Glucose (74-99) mg/dL POC Glucose (mg/dL) 120 H 140 H 153 H (75-99) mg/dL Calcium (8.4-10.2) mg/dL 03/22/19 03/23/19 03/23/19 Range/Units 23:58 00:58 02:02 WBC (3.8-10.6) k/uL RBC (4.30-5.90) m/uL Hgb (13.0-17.5) gm/dL Hct (39.0-53.0) % Neutrophils # (1.3-7.7) k/uL Lymphocytes # (1.0-4.8) k/uL APTT (22.0-30.0) sec ABG pO2 (83-108) mmHg ABG Total CO2 (19-24) mmol/L ABG O2 Saturation (94-97) % Sodium (137-145) mmol/L Potassium (3.5-5.1) mmol/L BUN (9-20) mg/dL Creatinine (0.66-1.25) mg/dL Glucose (74-99) mg/dL POC Glucose (mg/dL) 166 H 135 H 141 H (75-99) mg/dL Calcium (8.4-10.2) mg/dL 03/23/19 03/23/19 03/23/19 Range/Units 03:04 04:25 05:08 WBC (3.8-10.6) k/uL RBC (4.30-5.90) m/uL Hgb (13.0-17.5) gm/dL Hct (39.0-53.0) % Neutrophils # (1.3-7.7) k/uL Lymphocytes # (1.0-4.8) k/uL APTT (22.0-30.0) sec ABG pO2 125 H (83-108) mmHg ABG Total CO2 27 H (19-24) mmol/L ABG O2 Saturation 99.0 H (94-97) % Sodium (137-145) mmol/L Potassium (3.5-5.1) mmol/L BUN (9-20) mg/dL Creatinine (0.66-1.25) mg/dL Glucose (74-99) mg/dL POC Glucose (mg/dL) 179 H 182 H (75-99) mg/dL Calcium (8.4-10.2) mg/dL 03/23/19 03/23/19 03/23/19 Range/Units 05:26 05:50 05:50 WBC 21.2 H (3.8-10.6) k/uL RBC 3.32 L (4.30-5.90) m/uL Hgb 9.4 L (13.0-17.5) gm/dL Hct 28.7 L (39.0-53.0) % Neutrophils # 19.4 H (1.3-7.7) k/uL Lymphocytes # 0.5 L (1.0-4.8) k/uL APTT (22.0-30.0) sec ABG pO2 (83-108) mmHg ABG Total CO2 (19-24) mmol/L ABG O2 Saturation (94-97) % Sodium 136 L (137-145) mmol/L Potassium 3.4 L (3.5-5.1) mmol/L BUN 66 H (9-20) mg/dL Creatinine 2.10 H (0.66-1.25) mg/dL Glucose 155 H (74-99) mg/dL POC Glucose (mg/dL) 170 H (75-99) mg/dL Calcium 7.4 L (8.4-10.2) mg/dL 03/23/19 03/23/19 03/23/19 Range/Units 05:50 06:11 06:58 WBC (3.8-10.6) k/uL RBC (4.30-5.90) m/uL Hgb (13.0-17.5) gm/dL Hct (39.0-53.0) % Neutrophils # (1.3-7.7) k/uL Lymphocytes # (1.0-4.8) k/uL APTT 52.4 H (22.0-30.0) sec ABG pO2 (83-108) mmHg ABG Total CO2 (19-24) mmol/L ABG O2 Saturation (94-97) % Sodium (137-145) mmol/L Potassium (3.5-5.1) mmol/L BUN (9-20) mg/dL Creatinine (0.66-1.25) mg/dL Glucose (74-99) mg/dL POC Glucose (mg/dL) 157 H 159 H (75-99) mg/dL Calcium (8.4-10.2) mg/dL 03/23/19 03/23/19 Range/Units 07:55 10:13 WBC (3.8-10.6) k/uL RBC (4.30-5.90) m/uL Hgb (13.0-17.5) gm/dL Hct (39.0-53.0) % Neutrophils # (1.3-7.7) k/uL Lymphocytes # (1.0-4.8) k/uL APTT (22.0-30.0) sec ABG pO2 (83-108) mmHg ABG Total CO2 (19-24) mmol/L ABG O2 Saturation (94-97) % Sodium (137-145) mmol/L Potassium (3.5-5.1) mmol/L BUN (9-20) mg/dL Creatinine (0.66-1.25) mg/dL Glucose (74-99) mg/dL POC Glucose (mg/dL) 162 H 180 H (75-99) mg/dL Calcium (8.4-10.2) mg/dL Microbiology - Last 24 Hours (Table) 03/22/19 03:58 Gram Stain - Preliminary Sputum Sputum Culture - Preliminary Assessment and Plan Assessment: status post small bowel excision for ischemic/necrotic jejunum/ileum. Patient will be attempted to wean off ventilator today. We will continue supportive care.
--- NOTE | 2019-03-23 11:23 | P.PN ---
Progress Note - Text Progress Note Date: 03/23/19 This is a 73-year-old gentleman with history of chronic renal failure who was brought in for cardiac catheterization because of positive stress test and pending urological surgery. Patient had a cardiac catheterization and was found to have triple-vessel disease. He had an FFR of the LAD. He was kept in the hospital for hydration but by next morning patient developed evidence of CHF and also non-STEMI. Subsequent course is complicated by ischemic bowel requiring surgery. Patient is still intubated but seemed to be ready to be extubated. He is in and out of atrial fibrillation but currently in sinus rhythm. His urine output is good. He was on IV amiodarone and would switch to by mouth amiodarone. Continue rest of the medications. Physical examination: Reveals a gentleman who is still intubated and sedated. In no acute distress. Vital signs are reviewed and stable. Maintaining sinus rhythm. Heart regular rhythm. Lungs appeared to be showing diminished breath sounds at bases. Final impression: #1. Status post surgery for ischemic bowel. #2. History of non-STEMI #3. Triple-vessel disease #4. CHF. #5. Paroxysmal atrial fibrillation #6. Chronic renal failure. Plan: We will continue current medical therapy. Start by mouth amiodarone. Possible extubation
[2019-03-23 11:44] LABS: Glucose,Whole Blood 181 mg/dL (75-99)
[2019-03-23] MEDS: INSULIN REGULAR 100 UNIT in SODIUM CHLORIDE 0.9% 100 ML IV SCH (11:45)
[2019-03-23] MEDS: HEPARIN SOD,PORK IN 0.45% NACL 25,000 UNIT in 0.45% NACL 1 250ML.BAG IV SCH (12:44)
[2019-03-23] MEDS: NOREPINEPHRINE 8 MG in SODIUM CHLORIDE 0.9% 250 ML IV SCH (12:45)
[2019-03-23 13:08] LABS: Glucose,Whole Blood 171 mg/dL (75-99)
[2019-03-23] MEDS ORDERED: Potassium Replacement Protocol 1 EACH MISC MISCELLANE PRN (13:22)
[2019-03-23 14:07] LABS: Glucose,Whole Blood 163 mg/dL (75-99)
[2019-03-23 16:01] LABS: Glucose,Whole Blood 152 mg/dL (75-99)
[2019-03-23] MEDS: 1: MVI, ADULT NO.4 WITH VIT K 10 ML, TRACE (CONC-1ML/DOSE) 1 ML, POTASSIUM CHLORIDE 20 M IV SCH ×4 (17:56)
[2019-03-23] MEDS: POTASSIUM CHLORIDE 10 MEQ in WATER FOR INJECTION 1 100ML.BAG IVPB SCH ×2 (17:56→19:02)
[2019-03-23 18:08] LABS: Glucose,Whole Blood 149 mg/dL (75-99)
[2019-03-23 19:55] LABS: Glucose,Whole Blood 133 mg/dL (75-99)
[2019-03-23] MEDS: ATORVASTATIN 80 MG TAB PO SCH (20:33)
[2019-03-23] MEDS: AMIODARONE 200 MG TAB PO SCH (20:33)
[2019-03-23 22:06] LABS: Glucose,Whole Blood 194 mg/dL (75-99)
[2019-03-23 23:59] LABS: Glucose,Whole Blood 203 mg/dL (75-99)
[2019-03-24 02:10] LABS: Glucose,Whole Blood 210 mg/dL (75-99)
[2019-03-24 04:00] LABS: Glucose,Whole Blood 154 mg/dL (75-99)
[2019-03-24 04:38] LABS: Allen Test Performed? no
[2019-03-24 04:39] LABS: ABG Base Excess 0.7 mmol/L; ABG HCO3 24 mmol/L (21-25); ABG PCO2 34 mmHg (35-45); ABG PH 7.47 (7.35-7.45); ABG PO2 96 mmHg (83-108)
[2019-03-24 05:58] LABS: Glucose,Whole Blood 144 mg/dL (75-99)
--- NOTE | 2019-03-24 06:32 | XR ---
EXAMINATION TYPE: XR chest 1V portable DATE OF EXAM: 03/24/2019 HISTORY: Tube placement. REFERENCE: Previous study dated 03/23/2019. FINDINGS: Unfortunately, the patient's head projects over the chest. This is obscuring the patient is ET tube. There is an NG tube present with its tip in the stomach. There is bibasilar airspace disease. I suspect small effusions. The heart is mildly enlarged. IMPRESSION: SUBOPTIMAL EXAMINATION DEMONSTRATING NO DEFINITE INTERVAL CHANGE.
[2019-03-24 07:25] LABS: Glucose,Whole Blood 103 mg/dL (75-99)
[2019-03-24] MEDS: PIPERACILLIN-TAZOBACTAM 3.375 GM in SODIUM CHLORIDE 0.9% 100 ML IVPB SCH ×3 (07:29→19:51)
[2019-03-24 07:46] LABS: Basophils % (A) 0 %; Eosinophils # (A) 0.1 k/uL (0-0.7); Eosinophils % (A) 1 %; HCT 28.7 % (39.0-53.0); HGB 9.4 gm/dL (13.0-17.5); Lymphocytes # (A) 0.5 k/uL (1.0-4.8); Lymphocytes % (A) 3 %; MCH 28.3 pg (25.0-35.0); MCHC 32.8 g/dL (31.0-37.0); MCV 86.3 fL (80.0-100.0); Mean Platelet Volume 9.4; Monocytes # (A) 0.7 k/uL (0-1.0); Monocytes % (A) 4 %; Neutrophils # (A) 16.4 k/uL (1.3-7.7); Neutrophils % (A) 92 %; Platelet Count 242 k/uL (150-450); RBC 3.33 m/uL (4.30-5.90); RDW 14.8 % (11.5-15.5); WBC 17.9 k/uL (3.8-10.6)
[2019-03-24 07:54] LABS: Calcium 7.9 mg/dL (8.4-10.2); Magnesium 2.2 mg/dL (1.6-2.3); Phosphorus 2.8 mg/dL (2.5-4.5); Potassium 4.4 mmol/L (3.5-5.1)
[2019-03-24] MEDS: 1: MVI, ADULT NO.4 WITH VIT K 10 ML, TRACE (CONC-1ML/DOSE) 1 ML, POTASSIUM CHLORIDE 20 M IV SCH ×8 (07:56→19:51)
[2019-03-24] MEDS: HEPARIN SODIUM,PORCINE 5,000 UNIT/ML 1 ML VIAL IV PRN (08:52)
[2019-03-24 09:02] LABS: Glucose,Whole Blood 154 mg/dL (75-99)
[2019-03-24] MEDS: PANTOPRAZOLE 40 MG/10 ML VIAL IVP SCH (09:05)
[2019-03-24] MEDS: CHLORHEXIDINE GLUCONATE 15 ML CUP MUCOUS MEM SCH ×2 (09:05→19:50)
[2019-03-24] MEDS: ASPIRIN 81 MG PO SCH (09:06)
[2019-03-24] MEDS: FENOFIBRATE 160 MG TAB PO SCH (09:06)
[2019-03-24] MEDS: AMIODARONE 200 MG TAB PO SCH ×3 (09:06→19:51)
--- NOTE | 2019-03-24 09:18 | P.PN ---
Subjective Progress Note Date: 03/23/19 Patient is status post laparotomy for a small wall ischemia consider necrosis. The patient the surgical risk is very high as it wasn't emergent surgery patient underwent surgery and patient is presently intubated patient in shock broad- spectrum antibiotics patient on propofol and norepinephrine. Patient was having a low-grade temperatures and patient is presently receiving TPN for nutritional support. Patient has colostomy as well patient has a major three-vessel disease and patient was in A. fib patient of the proximal A. fib presently on amiodarone wasn't is sinus rhythm was sinus tachycardia. Does have history of chronic kidney disease stage III from polycystic kidney 03/24/2019 No significant change in clinical condition patient remains on norepinephrine remains intubated. Patient urine output is good patient remains on normal saline at 100 mL per hour. Review of systems: Unable to obtain due to his clinical condition All inpatient medications were reviewed and appropriate changes in these medications as dictated in the interval history and assessment and plan. Objective - Vital Signs Vital signs: Vital Signs Temp 98.3 F 03/24/19 08:00 Pulse 115 H 03/24/19 08:00 Resp 25 H 03/24/19 08:00 BP 112/79 03/24/19 08:00 Pulse Ox 96 03/24/19 08:00 Intake & Output 03/23/19 03/24/19 03/24/19 18:59 06:59 18:59 Intake Total 2174.731 1589.978 439.629 Output Total 2835 1360 60 Balance -660.269 229.978 379.629 Weight 78.2 kg Intake: IV 1836 1436 206 .9 640 240 40 Potassium Chloride 10 meq 100 200 In Water For Injection 1 100ml.bag @ 100 mls/hr IVPB Q1H [facility] Rx#: [id number] Potassium Chloride 20 meq 100 In Water For Injection 1 100ml.bag @ 50 mls/hr IVPB ONCE ONE Rx#: [id number] TPN 996 996 166 Intake, IV Titration 338.731 70.978 233.629 Amount Heparin Sod,Pork in 0.45% 151.008 219.615 NaCl 25,000 unit In 0.45 % NaCl 1 250ml.bag @ 12 UNITS/KG/HR 8.712 mls/hr IV .Q24H [facility] Rx#: [id number] Insulin Regular 100 unit 52.596 43.202 14.014 In Sodium Chloride 0.9% 100 ml @ Per Protocol IV .Q0M [facility] Rx#:[id number] Norepinephrine 4 mg In 87.655 Sodium Chloride 0.9% 250 ml @ 0.05 MCG/KG/MIN 12. 954 mls/hr IV .[id number] [facility] Rx#:[id number] Norepinephrine 8 mg In 2.232 27.776 Sodium Chloride 0.9% 250 ml @ 0.05 MCG/KG/MIN 7.44 mls/hr IV .Q24H [facility] Rx#: [id number] Propofol 1,000 mg In 45.240 Empty Bag 1 bag @ Titrate IV .Q0M [facility] Rx#: [id number] Oral 83 Output: Gastric Drainage 400 Urine 1135 860 60 Stool 1300 500 Other: Voiding Method Indwelling Catheter Indwelling Catheter ABP, PAP, CO, CI - Last Documented Arterial Blood Pressure 126/49 - Exam PHYSICAL EXAMINATION: GENERAL: Intubated sedated, fully catheter in place HEENT: Pupils are round and equally reacting to light. EOMI. No scleral icterus. No conjunctival pallor. Normocephalic, atraumatic. No pharyngeal erythema. No thyromegaly. CARDIOVASCULAR: S1 and S2 present. No murmurs, rubs, or gallops. Tachycardic PULMONARY: Bilateral expiratory wheezing was appreciated ABDOMEN: Bowel sounds are absent jejunostomy tube in place MUSCULOSKELETAL: No joint swelling or deformity. EXTREMITIES: No cyanosis, clubbing, or pedal edema. NEUROLOGICAL: Gross neurological examination did not reveal any focal deficits. SKIN: No rashes. - Labs CBC & Chem 7: 03/24/19 07:23 03/24/19 07:23 Labs: Abnormal Lab Results - Last 24 Hours (Table) 03/23/19 03/23/19 03/23/19 Range/Units 10:13 11:43 13:07 WBC (3.8-10.6) k/uL RBC (4.30-5.90) m/uL Hgb (13.0-17.5) gm/dL Hct (39.0-53.0) % Neutrophils # (1.3-7.7) k/uL Lymphocytes # (1.0-4.8) k/uL APTT (22.0-30.0) sec ABG pH (7.35-7.45) ABG pCO2 (35-45) mmHg ABG O2 Saturation (94-97) % BUN (9-20) mg/dL Creatinine (0.66-1.25) mg/dL POC Glucose (mg/dL) 180 H 181 H 171 H (75-99) mg/dL Calcium (8.4-10.2) mg/dL 03/23/19 03/23/19 03/23/19 Range/Units 14:03 16:00 18:07 WBC (3.8-10.6) k/uL RBC (4.30-5.90) m/uL Hgb (13.0-17.5) gm/dL Hct (39.0-53.0) % Neutrophils # (1.3-7.7) k/uL Lymphocytes # (1.0-4.8) k/uL APTT (22.0-30.0) sec ABG pH (7.35-7.45) ABG pCO2 (35-45) mmHg ABG O2 Saturation (94-97) % BUN (9-20) mg/dL Creatinine (0.66-1.25) mg/dL POC Glucose (mg/dL) 163 H 152 H 149 H (75-99) mg/dL Calcium (8.4-10.2) mg/dL 03/23/19 03/23/19 03/23/19 Range/Units 19:54 22:05 23:58 WBC (3.8-10.6) k/uL RBC (4.30-5.90) m/uL Hgb (13.0-17.5) gm/dL Hct (39.0-53.0) % Neutrophils # (1.3-7.7) k/uL Lymphocytes # (1.0-4.8) k/uL APTT (22.0-30.0) sec ABG pH (7.35-7.45) ABG pCO2 (35-45) mmHg ABG O2 Saturation (94-97) % BUN (9-20) mg/dL Creatinine (0.66-1.25) mg/dL POC Glucose (mg/dL) 133 H 194 H 203 H (75-99) mg/dL Calcium (8.4-10.2) mg/dL 03/24/19 03/24/19 03/24/19 Range/Units 02:09 03:58 04:25 WBC (3.8-10.6) k/uL RBC (4.30-5.90) m/uL Hgb (13.0-17.5) gm/dL Hct (39.0-53.0) % Neutrophils # (1.3-7.7) k/uL Lymphocytes # (1.0-4.8) k/uL APTT (22.0-30.0) sec ABG pH 7.47 H (7.35-7.45) ABG pCO2 34 L (35-45) mmHg ABG O2 Saturation 98.0 H (94-97) % BUN (9-20) mg/dL Creatinine (0.66-1.25) mg/dL POC Glucose (mg/dL) 210 H 154 H (75-99) mg/dL Calcium (8.4-10.2) mg/dL 03/24/19 03/24/19 03/24/19 Range/Units 05:57 07:23 07:23 WBC 17.9 H (3.8-10.6) k/uL RBC 3.33 L (4.30-5.90) m/uL Hgb 9.4 L (13.0-17.5) gm/dL Hct 28.7 L (39.0-53.0) % Neutrophils # 16.4 H (1.3-7.7) k/uL Lymphocytes # 0.5 L (1.0-4.8) k/uL APTT (22.0-30.0) sec ABG pH (7.35-7.45) ABG pCO2 (35-45) mmHg ABG O2 Saturation (94-97) % BUN 67 H (9-20) mg/dL Creatinine 1.84 H (0.66-1.25) mg/dL POC Glucose (mg/dL) 144 H (75-99) mg/dL Calcium 7.9 L (8.4-10.2) mg/dL 03/24/19 03/24/19 03/24/19 Range/Units 07:23 07:23 09:00 WBC (3.8-10.6) k/uL RBC (4.30-5.90) m/uL Hgb (13.0-17.5) gm/dL Hct (39.0-53.0) % Neutrophils # (1.3-7.7) k/uL Lymphocytes # (1.0-4.8) k/uL APTT 36.6 H (22.0-30.0) sec ABG pH (7.35-7.45) ABG pCO2 (35-45) mmHg ABG O2 Saturation (94-97) % BUN (9-20) mg/dL Creatinine (0.66-1.25) mg/dL POC Glucose (mg/dL) 103 H 154 H (75-99) mg/dL Calcium (8.4-10.2) mg/dL Microbiology - Last 24 Hours (Table) 03/22/19 03:58 Gram Stain - Preliminary Sputum Sputum Culture - Preliminary Mayelin albicans Assessment and Plan Plan: Septic shock patient is on pressor support and the sepsis secondary to ischemic bowel. Patient is status post laparotomy and is on Zosyn. -Coronary artery disease severe multivessel 33 vessel disease patient had dyspnea for 40-45% with mitral regurgitation need to closely monitor for any volume overload need to be cautious with IV fluids patient is on antiplatelet statin for this -Proximal A. fib presently sinus rhythm with PVCs and patient is on amiodarone drip which will be continued -Ventilator dependent respiratory failure secondary to sepsis management as per pulmonology -Severe pulmonary hypertension -Hyperlipidemia -Type 2 diabetes mellitus continue with present regimen depending on his sliding scale requirements with titrate the insulin regimen -Chronic kidney disease stage III with some acute kidney injury from sepsis and acute tubular necrosis chronic kidney disease secondary to diabetic nephropathy Acute renal failure: Secondary to acute tubular necrosis and prerenal azotemia which is improving -COPD with acute exacerbation -Polycystic kidney disease -Hypertension patient is presently hypotensive and is in shock -History of bladder cancer with TURP in the past Patient's overall prognosis is poor his clinical condition is guarded now
[2019-03-24] MEDS: BUDESONIDE 1 MG/2 ML NEBU INHALATION SCH (09:25)
[2019-03-24] MEDS: FORMOTEROL FUMARATE 20 MCG/2 ML NEBU INHALATION SCH (09:26)
[2019-03-24] MEDS: IPRATROPIUM-ALBUTEROL 3 ML NEB INHALATION SCH ×4 (09:26→19:40)
[2019-03-24] MEDS ORDERED: FUROSEMIDE 10 MG/ML 4 ML VIAL IV STA (10:10)
[2019-03-24] MEDS: METOPROLOL TARTRATE 12.5 MG TAB PO SCH (10:14)
--- NOTE | 2019-03-24 10:21 | P.PN ---
Subjective Progress Note Date: 03/24/19 on 03/24/2019 the patient is postop day #3. The patient underwent bowel resection for an acute ischemic bowel and the patient underwent small bowel resection, ileal resection, jejunal resection with diverting jejunostomy. A breeze spontaneous breathing trial was given to him yesterday. The patient fe els he became tachypneic and tachycardic and restless. This was aborted. The same will be done today. I feel that he is essentially stable. He remains on a mechanical ventilator on assist control mode at the rate of 12 with a tidal volume of 500 and FiO2 of 40% with a PEEP of 5. Chest x-ray showing pulmonary vascular congestion/small effusion the lungs left more than right. ET tube is in a good location. He is a left IJ triple lumen catheter in place. The patient was given a dose of Lasix yesterday. He did produce some urine output. His creatinine is down to 1.8. The neck fluid balance is +600 mL over the past 24 hours. The creatinine is improving. He is on and off in atrial fibr illation. After being taken off the amiodarone drip, he was placed on oral amiodarone and this morning is back into atrial fibrillation with a controlled rate. His heart rate goes sometimes in the low 100s. The patient was seen by cardiology. Metoprolol was added. His amiodarone dose was also increased up to 200 mg 3 times a day. He is on IV heparin. He is on norepinephrine infusion which is running at a low backup rate of 0.09 g per KG per minute. He is receiving TPN for nutritional support. He is afebrile for now. All of the cultures of been negative thus far..Note that the patient has COPD,, his FEV1 is normal to 52% of predicted, he has history of diabetes and history of bladder cancer and he has history of stage III kidney disease with polycystic kidney disease disorder. Objective - Vital Signs Vital signs: Vital Signs Temp 98.3 F 03/24/19 08:00 Pulse 115 H 03/24/19 10:00 Resp 25 H 03/24/19 10:00 BP 106/67 03/24/19 10:00 Pulse Ox 96 03/24/19 10:00 Intake & Output 03/23/19 03/24/19 03/24/19 18:59 06:59 18:59 Intake Total 2174.731 1589.978 542.629 Output Total 2835 1360 185 Balance -660.269 229.978 357.629 Weight 78.2 kg Intake: IV 1836 1436 309 .9 640 240 60 Potassium Chloride 10 meq 100 200 In Water For Injection 1 100ml.bag @ 100 mls/hr IVPB Q1H [facility] Rx#: [id number] Potassium Chloride 20 meq 100 In Water For Injection 1 100ml.bag @ 50 mls/hr IVPB ONCE ONE Rx#: [id number] TPN 996 996 249 Intake, IV Titration 338.731 70.978 233.629 Amount Heparin Sod,Pork in 0.45% 151.008 219.615 NaCl 25,000 unit In 0.45 % NaCl 1 250ml.bag @ 12 UNITS/KG/HR 8.712 mls/hr IV .Q24H [facility] Rx#: [id number] Insulin Regular 100 unit 52.596 43.202 14.014 In Sodium Chloride 0.9% 100 ml @ Per Protocol IV .Q0M [facility] Rx#:[id number] Norepinephrine 4 mg In 87.655 Sodium Chloride 0.9% 250 ml @ 0.05 MCG/KG/MIN 12. 954 mls/hr IV .[id number] [facility] Rx#:[id number] Norepinephrine 8 mg In 2.232 27.776 Sodium Chloride 0.9% 250 ml @ 0.05 MCG/KG/MIN 7.44 mls/hr IV .Q24H [facility] Rx#: [id number] Propofol 1,000 mg In 45.240 Empty Bag 1 bag @ Titrate IV .Q0M [facility] Rx#: [id number] Oral 83 Output: Gastric Drainage 400 Urine 1135 860 185 Stool 1300 500 Other: Voiding Method Indwelling Catheter Indwelling Catheter ABP, PAP, CO, CI - Last Documented Arterial Blood Pressure 104/44 - Exam Gen. appearance the patient his, comfortable intubated on a mechanical v entilator and orogastric and orotracheal tube are both in place. Head exam was generally normal. There was no scleral icterus or corneal arcus. Mucous membranes were moist. Neck was supple and without jugular venous distension, thyromegaly, or carotid bruits. Carotids were easily palpable bilaterally. There was no adenopathy. Lungs sounds are diminished bilaterally along with scattered expiratory wheezes throughout the lung his bilaterally. Heart sounds are distant. Otherwise, Cardiac exam revealed the PMI to be normally situated and sized. The rhythm was Heart rate is irregular based on the fact that he is swallowing a lot of PVCs and PACs and is out of atrial fibrillation for now nd no extrasystoles were noted during several minutes of auscultation. The first and second heart sounds were normal and physiologic splitting of the second heart sound was noted. There were no murmurs, rubs, clicks, or gallops. Abdominal exam reveals absent absent bowel sounds, jejunostomy site is viable and there is some liquidy material collecting in the back. The patient also has a mid abdominal incision which is dry clean and intact at this point in time.. Examination of the extremities revealed easily palpable radial, femoral and pedal pulses. There was no cyanosis, clubbing or edema. Examination of the skin revealed no evidence of significant rashes, suspicious appearing nevi or other concerning lesions. Neurologically he is was sedated with propofol and is calm and comfortable. - Labs CBC & Chem 7: 03/24/19 07:23 03/24/19 07:23 Labs: Abnormal Lab Results - Last 24 Hours (Table) 03/23/19 03/23/19 03/23/19 Range/Units 10:13 11:43 13:07 WBC (3.8-10.6) k/uL RBC (4.30-5.90) m/uL Hgb (13.0-17.5) gm/dL Hct (39.0-53.0) % Neutrophils # (1.3-7.7) k/uL Lymphocytes # (1.0-4.8) k/uL APTT (22.0-30.0) sec ABG pH (7.35-7.45) ABG pCO2 (35-45) mmHg ABG O2 Saturation (94-97) % BUN (9-20) mg/dL Creatinine (0.66-1.25) mg/dL POC Glucose (mg/dL) 180 H 181 H 171 H (75-99) mg/dL Calcium (8.4-10.2) mg/dL 03/23/19 03/23/19 03/23/19 Range/Units 14:03 16:00 18:07 WBC (3.8-10.6) k/uL RBC (4.30-5.90) m/uL Hgb (13.0-17.5) gm/dL Hct (39.0-53.0) % Neutrophils # (1.3-7.7) k/uL Lymphocytes # (1.0-4.8) k/uL APTT (22.0-30.0) sec ABG pH (7.35-7.45) ABG pCO2 (35-45) mmHg ABG O2 Saturation (94-97) % BUN (9-20) mg/dL Creatinine (0.66-1.25) mg/dL POC Glucose (mg/dL) 163 H 152 H 149 H (75-99) mg/dL Calcium (8.4-10.2) mg/dL 03/23/19 03/23/19 03/23/19 Range/Units 19:54 22:05 23:58 WBC (3.8-10.6) k/uL RBC (4.30-5.90) m/uL Hgb (13.0-17.5) gm/dL Hct (39.0-53.0) % Neutrophils # (1.3-7.7) k/uL Lymphocytes # (1.0-4.8) k/uL APTT (22.0-30.0) sec ABG pH (7.35-7.45) ABG pCO2 (35-45) mmHg ABG O2 Saturation (94-97) % BUN (9-20) mg/dL Creatinine (0.66-1.25) mg/dL POC Glucose (mg/dL) 133 H 194 H 203 H (75-99) mg/dL Calcium (8.4-10.2) mg/dL 03/24/19 03/24/19 03/24/19 Range/Units 02:09 03:58 04:25 WBC (3.8-10.6) k/uL RBC (4.30-5.90) m/uL Hgb (13.0-17.5) gm/dL Hct (39.0-53.0) % Neutrophils # (1.3-7.7) k/uL Lymphocytes # (1.0-4.8) k/uL APTT (22.0-30.0) sec ABG pH 7.47 H (7.35-7.45) ABG pCO2 34 L (35-45) mmHg ABG O2 Saturation 98.0 H (94-97) % BUN (9-20) mg/dL Creatinine (0.66-1.25) mg/dL POC Glucose (mg/dL) 210 H 154 H (75-99) mg/dL Calcium (8.4-10.2) mg/dL 03/24/19 03/24/19 03/24/19 Range/Units 05:57 07:23 07:23 WBC 17.9 H (3.8-10.6) k/uL RBC 3.33 L (4.30-5.90) m/uL Hgb 9.4 L (13.0-17.5) gm/dL Hct 28.7 L (39.0-53.0) % Neutrophils # 16.4 H (1.3-7.7) k/uL Lymphocytes # 0.5 L (1.0-4.8) k/uL APTT (22.0-30.0) sec ABG pH (7.35-7.45) ABG pCO2 (35-45) mmHg ABG O2 Saturation (94-97) % BUN 67 H (9-20) mg/dL Creatinine 1.84 H (0.66-1.25) mg/dL POC Glucose (mg/dL) 144 H (75-99) mg/dL Calcium 7.9 L (8.4-10.2) mg/dL 03/24/19 03/24/19 03/24/19 Range/Units 07:23 07:23 09:00 WBC (3.8-10.6) k/uL RBC (4.30-5.90) m/uL Hgb (13.0-17.5) gm/dL Hct (39.0-53.0) % Neutrophils # (1.3-7.7) k/uL Lymphocytes # (1.0-4.8) k/uL APTT 36.6 H (22.0-30.0) sec ABG pH (7.35-7.45) ABG pCO2 (35-45) mmHg ABG O2 Saturation (94-97) % BUN (9-20) mg/dL Creatinine (0.66-1.25) mg/dL POC Glucose (mg/dL) 103 H 154 H (75-99) mg/dL Calcium (8.4-10.2) mg/dL Microbiology - Last 24 Hours (Table) 03/22/19 03:58 Gram Stain - Preliminary Sputum Sputum Culture - Preliminary Mayelin albicans Assessment and Plan Plan: 1 acute ischemic small bowel post exploratory laparotomy and excision of the neck shows that bowel involving the small bowel and the patient underwent a ileal and jejunal resection and the patient had a diverting jejunostomy. The patient is currently postop day #3. the patient is hemodynamically doing well. He is currently on pressors which is running at 0.09 g per KG per minute of norepinephrine infusion. He has received adequate fluid resuscitation. He is on broad-spectrum antibiotic with IV Zosyn. He has good urine output. Pressors are being gradually weaned off.the patient is afebrile. The patient has negati ve cultures. 2 severe multivessel coronary artery disease, post non-STEMI and the patient was being considered for cardiac revascularization surgery. Ejection fraction was around 35-40% and he has severe pulmonary hypertension with elevated left ventricular end-diastolic pressure in addition to bilateral pleural effusions. IAN showed improved ejection fraction of 40-45%, +2 mitral regurgitation. The patient was being considered for bypass surgery and valve repair he had the surgery got canceled 3 paroxysmal atrial fibrillation , currently rhythm is sinus and the patient will be switched to oral amiodarone.his dose was increased up to 200 mg of amiodarone 3 times a day along with metoprolol 12.5 mg by mouth twice a day. 4 severe pulmonary hypertension with possible mitral regurgitation moderate to severe, 5 hyperlipidemia 6 diabetes mellitus, currently on insulin drip for blood sugar control 7 chronic stage III kidney failure, with a component of acute kidney injury secondary to intravascular volume depletion and possibly ischemic bowel and sepsis. The renal function is improving and creatinine is down to 1.8 and the patient is producing adequate amount of urine output 8 COPD with history of chronic smoking 9 polycystic kidney disease 10 history of bladder cancer post-transurethral resection followed by intravesicular chemotherapy 11 TPN for nutritional support 12 carotid artery stenosis , plaque with stenosis bilaterally left more than right 14 hypertension, history of plan we'll give the patient sedation holiday We'll check weaning parameters We'll give him a spontaneous breathing trial We'll give another dose of Lasix 40 mg IV push Continue oral amiodarone and metoprolol titrate pressors to maintain a mean atrial pressure above 60 Monitor renal function Blood gas was noted Chest x-ray was noted Keep nothing by mouth and keep the patient on TPN for now We'll continue to follow Critically care evaluation, more than 30 minutes Time with Patient: Greater than 30
[2019-03-24 11:10] LABS: Glucose,Whole Blood 201 mg/dL (75-99)
--- NOTE | 2019-03-24 11:55 | P.PN ---
Subjective Progress Note Date: 03/24/19 This 73-year-old gentleman is is still intubated. Attempt to extubate him yesterday resultant tachypnea and tachycardia. Another weaning trial will be done today. He is in paroxysmal atrial fibrillation. I'm going to initiate him on beta luisa along with increasing the dose of the P wave amiodarone. Patient has received Lasix and had some urine output yesterday. His creatinine is 1.8. Continue the rest of the medication Objective - Vital Signs Vital signs: Vital Signs Temp 98.3 F 03/24/19 08:00 Pulse 93 03/24/19 11:00 Resp 26 H 03/24/19 11:00 BP 106/67 03/24/19 10:00 Pulse Ox 96 03/24/19 11:00 Intake & Output 03/23/19 03/24/19 03/24/19 18:59 06:59 18:59 Intake Total 2174.731 1589.978 810.930 Output Total 2835 1360 335 Balance -660.269 229.978 475.930 Weight 78.2 kg Intake: IV 1836 1436 515 .9 640 240 100 Potassium Chloride 10 meq 100 200 In Water For Injection 1 100ml.bag @ 100 mls/hr IVPB Q1H [facility] Rx#: [id number] Potassium Chloride 20 meq 100 In Water For Injection 1 100ml.bag @ 50 mls/hr IVPB ONCE ONE Rx#: [id number] TPN 996 996 415 Intake, IV Titration 338.731 70.978 295.930 Amount Heparin Sod,Pork in 0.45% 151.008 219.615 NaCl 25,000 unit In 0.45 % NaCl 1 250ml.bag @ 12 UNITS/KG/HR 8.712 mls/hr IV .Q24H [facility] Rx#: [id number] Insulin Regular 100 unit 52.596 43.202 21.555 In Sodium Chloride 0.9% 100 ml @ Per Protocol IV .Q0M [facility] Rx#:[id number] Norepinephrine 4 mg In 87.655 Sodium Chloride 0.9% 250 ml @ 0.05 MCG/KG/MIN 12. 954 mls/hr IV .[id number] [facility] Rx#:[id number] Norepinephrine 8 mg In 2.232 27.776 Sodium Chloride 0.9% 250 ml @ 0.05 MCG/KG/MIN 7.44 mls/hr IV .Q24H [facility] Rx#: [id number] Propofol 1,000 mg In 45.240 54.76 Empty Bag 1 bag @ Titrate IV .Q0M [facility] Rx#: [id number] Oral 83 Output: Gastric Drainage 400 Urine 1135 860 335 Stool 1300 500 Other: Voiding Method Indwelling Catheter Indwelling Catheter ABP, PAP, CO, CI - Last Documented Arterial Blood Pressure 120/45 - Exam GENERAL EXAM: Patient is intubated HEENT: Normocephalic. Normal reaction of pupils, equal size, normal range of extraocular motion. No erythema or exudates in the throat. NECK: No masses, no nuchal rigidity. CHEST: No chest wall deformity. LUNGS: Diminished breath sounds at bases HEART: S1 and S2 normal. Irregular heart rhythm ABDOMEN: No hepatosplenomegaly, normal bowel sounds, no guarding or rigidity. SKIN: No rashes CENTRAL NERVOUS SYSTEM: Not assessed EXTREMITIES: No cyanosis, clubbing or edema. - Labs CBC & Chem 7: 03/24/19 07:23 03/24/19 07:23 Labs: Abnormal Lab Results - Last 24 Hours (Table) 03/23/19 03/23/19 03/23/19 Range/Units 13:07 14:03 16:00 WBC (3.8-10.6) k/uL RBC (4.30-5.90) m/uL Hgb (13.0-17.5) gm/dL Hct (39.0-53.0) % Neutrophils # (1.3-7.7) k/uL Lymphocytes # (1.0-4.8) k/uL APTT (22.0-30.0) sec ABG pH (7.35-7.45) ABG pCO2 (35-45) mmHg ABG O2 Saturation (94-97) % BUN (9-20) mg/dL Creatinine (0.66-1.25) mg/dL POC Glucose (mg/dL) 171 H 163 H 152 H (75-99) mg/dL Calcium (8.4-10.2) mg/dL 03/23/19 03/23/19 03/23/19 Range/Units 18:07 19:54 22:05 WBC (3.8-10.6) k/uL RBC (4.30-5.90) m/uL Hgb (13.0-17.5) gm/dL Hct (39.0-53.0) % Neutrophils # (1.3-7.7) k/uL Lymphocytes # (1.0-4.8) k/uL APTT (22.0-30.0) sec ABG pH (7.35-7.45) ABG pCO2 (35-45) mmHg ABG O2 Saturation (94-97) % BUN (9-20) mg/dL Creatinine (0.66-1.25) mg/dL POC Glucose (mg/dL) 149 H 133 H 194 H (75-99) mg/dL Calcium (8.4-10.2) mg/dL 03/23/19 03/24/19 03/24/19 Range/Units 23:58 02:09 03:58 WBC (3.8-10.6) k/uL RBC (4.30-5.90) m/uL Hgb (13.0-17.5) gm/dL Hct (39.0-53.0) % Neutrophils # (1.3-7.7) k/uL Lymphocytes # (1.0-4.8) k/uL APTT (22.0-30.0) sec ABG pH (7.35-7.45) ABG pCO2 (35-45) mmHg ABG O2 Saturation (94-97) % BUN (9-20) mg/dL Creatinine (0.66-1.25) mg/dL POC Glucose (mg/dL) 203 H 210 H 154 H (75-99) mg/dL Calcium (8.4-10.2) mg/dL 03/24/19 03/24/19 03/24/19 Range/Units 04:25 05:57 07:23 WBC (3.8-10.6) k/uL RBC (4.30-5.90) m/uL Hgb (13.0-17.5) gm/dL Hct (39.0-53.0) % Neutrophils # (1.3-7.7) k/uL Lymphocytes # (1.0-4.8) k/uL APTT (22.0-30.0) sec ABG pH 7.47 H (7.35-7.45) ABG pCO2 34 L (35-45) mmHg ABG O2 Saturation 98.0 H (94-97) % BUN 67 H (9-20) mg/dL Creatinine 1.84 H (0.66-1.25) mg/dL POC Glucose (mg/dL) 144 H (75-99) mg/dL Calcium 7.9 L (8.4-10.2) mg/dL 03/24/19 03/24/19 03/24/19 Range/Units 07:23 07:23 07:23 WBC 17.9 H (3.8-10.6) k/uL RBC 3.33 L (4.30-5.90) m/uL Hgb 9.4 L (13.0-17.5) gm/dL Hct 28.7 L (39.0-53.0) % Neutrophils # 16.4 H (1.3-7.7) k/uL Lymphocytes # 0.5 L (1.0-4.8) k/uL APTT 36.6 H (22.0-30.0) sec ABG pH (7.35-7.45) ABG pCO2 (35-45) mmHg ABG O2 Saturation (94-97) % BUN (9-20) mg/dL Creatinine (0.66-1.25) mg/dL POC Glucose (mg/dL) 103 H (75-99) mg/dL Calcium (8.4-10.2) mg/dL 03/24/19 03/24/19 Range/Units 09:00 11:09 WBC (3.8-10.6) k/uL RBC (4.30-5.90) m/uL Hgb (13.0-17.5) gm/dL Hct (39.0-53.0) % Neutrophils # (1.3-7.7) k/uL Lymphocytes # (1.0-4.8) k/uL APTT (22.0-30.0) sec ABG pH (7.35-7.45) ABG pCO2 (35-45) mmHg ABG O2 Saturation (94-97) % BUN (9-20) mg/dL Creatinine (0.66-1.25) mg/dL POC Glucose (mg/dL) 154 H 201 H (75-99) mg/dL Calcium (8.4-10.2) mg/dL Microbiology - Last 24 Hours (Table) 03/22/19 03:58 Gram Stain - Final Sputum Sputum Culture - Final Mayelin albicans Assessment and Plan (1) Triple vessel disease of the heart Current Visit: Yes Status: Acute Code(s): I25.10 - ATHSCL HEART DISEASE OF [place] CORONARY ARTERY W/O ANG PCTRS SNOMED Code(s): 128013888 (2) Acute exacerbation of chronic obstructive airways disease Current Visit: No Status: Acute Code(s): J44.1 - CHRONIC OBSTRUCTIVE PULMONARY DISEASE W (ACUTE) EXACERBATION SNOMED Code(s): 410912959 (3) Pulmonary edema Current Visit: Yes Status: Acute Code(s): J81.1 - CHRONIC PULMONARY EDEMA SNOMED Code(s): 43477347 Plan: Continue current medical therapy. Increase the dose of amiodarone. Had beta luisa. Attempts to wean him off the respirator. Prognosis guarded
[2019-03-24 12:00] LABS: Glucose,Whole Blood 215 mg/dL (75-99)
[2019-03-24] MEDS: INSULIN REGULAR 100 UNIT in SODIUM CHLORIDE 0.9% 100 ML IV SCH (12:02)
[2019-03-24] MEDS: HEPARIN SOD,PORK IN 0.45% NACL 25,000 UNIT in 0.45% NACL 1 250ML.BAG IV SCH (12:02)
[2019-03-24] MEDS: NOREPINEPHRINE 8 MG in SODIUM CHLORIDE 0.9% 250 ML IV SCH (12:03)
[2019-03-24] MEDS: PROPOFOL 1,000 MG in EMPTY BAG 1 BAG IV SCH (12:30)
[2019-03-24 13:04] LABS: Glucose,Whole Blood 212 mg/dL (75-99)
[2019-03-24 14:06] LABS: Glucose,Whole Blood 214 mg/dL (75-99)
--- NOTE | 2019-03-24 14:14 | P.PN ---
Progress Note - Text Progress Note Date: 03/24/19 the patient remains roughly stable. There is been no acute changes. Dr. Aguiar we'll attempt to wean him off the ventilator today. On exam his vital signs appear stable. His abdomen is soft. jejunostomy is functioning. The jejunostomy is pink. Status post exposure laparotomy and small bowel resection for ischemic/necrotic small bowel. Patient will be tentatively be weaned ooff the ventilator today. He can have enteric feedings started.
--- NOTE | 2019-03-24 14:46 | P.PN ---
Subjective Patient is status post laparotomy for a small wall ischemia consider necrosis. The patient the surgical risk is very high as it wasn't emergent surgery patient underwent surgery and patient is presently intubated patient in shock broad- spectrum antibiotics patient on propofol and norepinephrine. Patient was having a low-grade temperatures and patient is presently receiving TPN for nutritional support. Patient has colostomy as well patient has a major three-vessel disease and patient was in A. fib patient of the proximal A. fib presently on amiodarone wasn't is sinus rhythm was sinus tachycardia. Does have history of chronic kidney disease stage III from polycystic kidney 03/24/2019 No significant change in clinical condition patient remains on norepinephrine remains intubated. Patient urine output is good patient remains on normal saline at 100 mL per hour. 03/25/2019 Patient is bit more awake today weaning of sedation although patient did undergo spontaneous breathing trial yet today. Patient is still on norepinephrine, IV h eparin, IV normal saline which is cut down to 20 mL now patient actually received Lasix with the good urine output. Review of systems: Unable to obtain due to his clinical condition All inpatient medications were reviewed and appropriate changes in these medications as dictated in the interval history and assessment and plan. Objective - Vital Signs Vital signs: Vital Signs Temp 98.4 F 03/24/19 12:00 Pulse 116 H 03/24/19 13:00 Resp 27 H 03/24/19 13:00 BP 106/67 03/24/19 10:00 Pulse Ox 94 L 03/24/19 13:00 Intake & Output 03/23/19 03/24/19 03/24/19 18:59 06:59 18:59 Intake Total 2174.731 4128.448 2199.836 Output Total 2835 1360 1010 Balance -660.269 229.978 478.836 Weight 78.2 kg Intake: IV 1836 1436 924 .9 640 240 160 Piperacillin-Tazobactam 3 100 .375 gm In Sodium Chloride 0.9% 100 ml @ 25 mls/hr IVPB Q8H [facility] Rx#: [id number] Potassium Chloride 10 meq 100 200 In Water For Injection 1 100ml.bag @ 100 mls/hr IVPB Q1H [facility] Rx#: [id number] Potassium Chloride 20 meq 100 In Water For Injection 1 100ml.bag @ 50 mls/hr IVPB ONCE ONE Rx#: [id number] TPN 996 996 664 Intake, IV Titration 338.731 70.978 564.836 Amount Heparin Sod,Pork in 0.45% 151.008 250.000 NaCl 25,000 unit In 0.45 % NaCl 1 250ml.bag @ 12 UNITS/KG/HR 8.712 mls/hr IV .Q24H [facility] Rx#: [id number] Insulin Regular 100 unit 52.596 43.202 34.198 In Sodium Chloride 0.9% 100 ml @ Per Protocol IV .Q0M [facility] Rx#:[id number] Norepinephrine 4 mg In 87.655 Sodium Chloride 0.9% 250 ml @ 0.05 MCG/KG/MIN 12. 954 mls/hr IV .[id number] [facility] Rx#:[id number] Norepinephrine 8 mg In 2.232 27.776 225.878 Sodium Chloride 0.9% 250 ml @ 0.05 MCG/KG/MIN 7.44 mls/hr IV .Q24H [facility] Rx#: [id number] Propofol 1,000 mg In 45.240 54.76 Empty Bag 1 bag @ Titrate IV .Q0M [facility] Rx#: [id number] Oral 83 Output: Gastric Drainage 400 150 Urine 1135 860 860 Stool 1300 500 Other: Voiding Method Indwelling Catheter Indwelling Catheter Indwelling Catheter ABP, PAP, CO, CI - Last Documented Arterial Blood Pressure 105/38 - Exam PHYSICAL EXAMINATION: GENERAL: Intubated sedated, fully catheter in place HEENT: Pupils are round and equally reacting to light. EOMI. No scleral icterus. No conjunctival pallor. Normocephalic, atraumatic. No pharyngeal erythema. No thyromegaly. CARDIOVASCULAR: S1 and S2 present. No murmurs, rubs, or gallops. Tachycardic PULMONARY: Bilateral expiratory wheezing was appreciated ABDOMEN: Bowel sounds are absent jejunostomy tube in place MUSCULOSKELETAL: No joint swelling or deformity. EXTREMITIES: No cyanosis, clubbing, or pedal edema. NEUROLOGICAL: Gross neurological examination did not reveal any focal deficits. SKIN: No rashes. - Labs CBC & Chem 7: 03/24/19 07:23 03/24/19 07:23 Labs: Abnormal Lab Results - Last 24 Hours (Table) 03/23/19 03/23/19 03/23/19 Range/Units 16:00 18:07 19:54 WBC (3.8-10.6) k/uL RBC (4.30-5.90) m/uL Hgb (13.0-17.5) gm/dL Hct (39.0-53.0) % Neutrophils # (1.3-7.7) k/uL Lymphocytes # (1.0-4.8) k/uL APTT (22.0-30.0) sec ABG pH (7.35-7.45) ABG pCO2 (35-45) mmHg ABG O2 Saturation (94-97) % BUN (9-20) mg/dL Creatinine (0.66-1.25) mg/dL POC Glucose (mg/dL) 152 H 149 H 133 H (75-99) mg/dL Calcium (8.4-10.2) mg/dL 03/23/19 03/23/19 03/24/19 Range/Units 22:05 23:58 02:09 WBC (3.8-10.6) k/uL RBC (4.30-5.90) m/uL Hgb (13.0-17.5) gm/dL Hct (39.0-53.0) % Neutrophils # (1.3-7.7) k/uL Lymphocytes # (1.0-4.8) k/uL APTT (22.0-30.0) sec ABG pH (7.35-7.45) ABG pCO2 (35-45) mmHg ABG O2 Saturation (94-97) % BUN (9-20) mg/dL Creatinine (0.66-1.25) mg/dL POC Glucose (mg/dL) 194 H 203 H 210 H (75-99) mg/dL Calcium (8.4-10.2) mg/dL 03/24/19 03/24/19 03/24/19 Range/Units 03:58 04:25 05:57 WBC (3.8-10.6) k/uL RBC (4.30-5.90) m/uL Hgb (13.0-17.5) gm/dL Hct (39.0-53.0) % Neutrophils # (1.3-7.7) k/uL Lymphocytes # (1.0-4.8) k/uL APTT (22.0-30.0) sec ABG pH 7.47 H (7.35-7.45) ABG pCO2 34 L (35-45) mmHg ABG O2 Saturation 98.0 H (94-97) % BUN (9-20) mg/dL Creatinine (0.66-1.25) mg/dL POC Glucose (mg/dL) 154 H 144 H (75-99) mg/dL Calcium (8.4-10.2) mg/dL 03/24/19 03/24/19 03/24/19 Range/Units 07:23 07:23 07:23 WBC 17.9 H (3.8-10.6) k/uL RBC 3.33 L (4.30-5.90) m/uL Hgb 9.4 L (13.0-17.5) gm/dL Hct 28.7 L (39.0-53.0) % Neutrophils # 16.4 H (1.3-7.7) k/uL Lymphocytes # 0.5 L (1.0-4.8) k/uL APTT 36.6 H (22.0-30.0) sec ABG pH (7.35-7.45) ABG pCO2 (35-45) mmHg ABG O2 Saturation (94-97) % BUN 67 H (9-20) mg/dL Creatinine 1.84 H (0.66-1.25) mg/dL POC Glucose (mg/dL) (75-99) mg/dL Calcium 7.9 L (8.4-10.2) mg/dL 03/24/19 03/24/19 03/24/19 Range/Units 07:23 09:00 11:09 WBC (3.8-10.6) k/uL RBC (4.30-5.90) m/uL Hgb (13.0-17.5) gm/dL Hct (39.0-53.0) % Neutrophils # (1.3-7.7) k/uL Lymphocytes # (1.0-4.8) k/uL APTT (22.0-30.0) sec ABG pH (7.35-7.45) ABG pCO2 (35-45) mmHg ABG O2 Saturation (94-97) % BUN (9-20) mg/dL Creatinine (0.66-1.25) mg/dL POC Glucose (mg/dL) 103 H 154 H 201 H (75-99) mg/dL Calcium (8.4-10.2) mg/dL 03/24/19 03/24/19 03/24/19 Range/Units 11:59 13:03 14:05 WBC (3.8-10.6) k/uL RBC (4.30-5.90) m/uL Hgb (13.0-17.5) gm/dL Hct (39.0-53.0) % Neutrophils # (1.3-7.7) k/uL Lymphocytes # (1.0-4.8) k/uL APTT (22.0-30.0) sec ABG pH (7.35-7.45) ABG pCO2 (35-45) mmHg ABG O2 Saturation (94-97) % BUN (9-20) mg/dL Creatinine (0.66-1.25) mg/dL POC Glucose (mg/dL) 215 H 212 H 214 H (75-99) mg/dL Calcium (8.4-10.2) mg/dL Microbiology - Last 24 Hours (Table) 03/22/19 03:58 Gram Stain - Final Sputum Sputum Culture - Final Mayelin albicans Assessment and Plan Plan: Septic shock patient is on pressor support and the sepsis secondary to ischemic bowel. Patient is status post laparotomy and is on Zosyn. -Coronary artery disease severe multivessel 33 vessel disease patient had dyspnea for 40-45% with mitral regurgitation, patient is bit volume overloaded receiving Lasix at this time IV fluids were cut down to 20 mL per hour patient is on antiplatelet statin for this -Proximal A. fib presently sinus rhythm with PVCs and patient is on amiodarone drip which will be continued -Ventilator dependent respiratory failure secondary to sepsis management as per pulmonology -Severe pulmonary hypertension -Hyperlipidemia -Type 2 diabetes mellitus continue with present regimen depending on his sliding scale requirements with titrate the insulin regimen -Chronic kidney disease stage III with some acute kidney injury from sepsis and acute tubular necrosis chronic kidney disease secondary to diabetic nephropathy Acute renal failure: Secondary to acute tubular necrosis and prerenal azotemia which is improving -COPD with acute exacerbation -Polycystic kidney disease -Hypertension patient is presently hypotensive and is in shock -History of bladder cancer with TURP in the past Patient's overall prognosis is poor his clinical condition is guarded now
[2019-03-24 15:07] LABS: Glucose,Whole Blood 175 mg/dL (75-99)
[2019-03-24 16:02] LABS: Glucose,Whole Blood 153 mg/dL (75-99)
[2019-03-24] MEDS: HYDROmorphone 1 MG/ML 1 ML SYRINGE IVP PRN (16:07)
[2019-03-24 17:11] LABS: Glucose,Whole Blood 142 mg/dL (75-99)
[2019-03-24 18:03] LABS: Glucose,Whole Blood 134 mg/dL (75-99)
[2019-03-24 18:58] LABS: Glucose,Whole Blood 124 mg/dL (75-99)
[2019-03-24] MEDS: ATORVASTATIN 80 MG TAB PO SCH (19:51)
[2019-03-24] MEDS: SODIUM CHLORIDE 0.9% 1,000 ML IV SCH (19:51)
[2019-03-24 20:12] LABS: Glucose,Whole Blood 139 mg/dL (75-99)
[2019-03-24 22:07] LABS: Glucose,Whole Blood 182 mg/dL (75-99)
[2019-03-24 23:01] LABS: Glucose,Whole Blood 222 mg/dL (75-99)
[2019-03-24 23:55] LABS: Glucose,Whole Blood 221 mg/dL (75-99)
[2019-03-25] MEDS: METOPROLOL TARTRATE 12.5 MG TAB PO SCH ×3 (00:15→20:55)
[2019-03-25] MEDS: HYDROmorphone 1 MG/ML 1 ML SYRINGE IVP PRN ×2 (00:26→05:21)
[2019-03-25] MEDS: NOREPINEPHRINE 8 MG in SODIUM CHLORIDE 0.9% 250 ML IV SCH (00:52)
[2019-03-25] MEDS: INSULIN REGULAR 100 UNIT in SODIUM CHLORIDE 0.9% 100 ML IV SCH ×2 (00:52→17:04)
[2019-03-25 01:03] LABS: Glucose,Whole Blood 229 mg/dL (75-99)
[2019-03-25 02:07] LABS: Glucose,Whole Blood 201 mg/dL (75-99)
[2019-03-25] MEDS: PROPOFOL 1,000 MG in EMPTY BAG 1 BAG IV SCH ×2 (02:32→06:46)
[2019-03-25 03:18] LABS: Glucose,Whole Blood 171 mg/dL (75-99)
[2019-03-25 04:05] LABS: Glucose,Whole Blood 153 mg/dL (75-99)
[2019-03-25 05:14] LABS: Glucose,Whole Blood 139 mg/dL (75-99)
[2019-03-25] MEDS: PIPERACILLIN-TAZOBACTAM 3.375 GM in SODIUM CHLORIDE 0.9% 100 ML IVPB SCH ×3 (05:21→21:16)
[2019-03-25 05:29] LABS: Basophils # (A) 0.1 k/uL (0-0.2); Basophils % (A) 1 %; Eosinophils # (A) 0.1 k/uL (0-0.7); Eosinophils % (A) 1 %; HCT 27.6 % (39.0-53.0); HGB 8.9 gm/dL (13.0-17.5); Hypochromasia Slight; Lymphocytes # (A) 0.5 k/uL (1.0-4.8); Lymphocytes % (A) 2 %; MCH 28.1 pg (25.0-35.0); MCHC 32.3 g/dL (31.0-37.0); MCV 86.9 fL (80.0-100.0); Mean Platelet Volume 10.1; Monocytes # (A) 0.8 k/uL (0-1.0); Monocytes % (A) 4 %; Neutrophils # (A) 19.1 k/uL (1.3-7.7); Neutrophils % (A) 92 %; Platelet Count 237 k/uL (150-450); RBC 3.18 m/uL (4.30-5.90); RDW 14.8 % (11.5-15.5); WBC 20.8 k/uL (3.8-10.6)
[2019-03-25 05:45] LABS: ABG Base Excess -0.7 mmol/L; ABG HCO3 24 mmol/L (21-25); ABG Oxygen Saturation 97.6 % (94-97); ABG PCO2 40 mmHg (35-45); ABG PO2 98 mmHg (83-108); ABG TCO2 25 mmol/L (19-24); Allen Test Performed? Yes
[2019-03-25 05:58] LABS: Calcium 7.8 mg/dL (8.4-10.2); Phosphorus 3.5 mg/dL (2.5-4.5); Potassium 4.7 mmol/L (3.5-5.1)
[2019-03-25 05:59] LABS: Magnesium 2.1 mg/dL (1.6-2.3)
[2019-03-25 06:11] LABS: Glucose,Whole Blood 131 mg/dL (75-99)
[2019-03-25] MEDS: HEPARIN SOD,PORK IN 0.45% NACL 25,000 UNIT in 0.45% NACL 1 250ML.BAG IV SCH (06:46)
[2019-03-25 07:06] LABS: Glucose,Whole Blood 144 mg/dL (75-99)
--- NOTE | 2019-03-25 07:23 | XR ---
EXAMINATION TYPE: XR chest 1V portable DATE OF EXAM: 03/25/2019 Comparison: 03/24/2019 Clinical History: 73-year-old male Tube placement Findings: ET tube is satisfactory. NG tube courses below the diaphragm. Left IJ CVC tip at the cavoatrial junct ion. Heart normal size. Hazy lower lung densities remain. Impression: Continued hazy lower lung densities suggesting small layering pleural effusions and adjacent atelecta sis and/or consolidation.
[2019-03-25 07:32] LABS: Glucose,Whole Blood 166 mg/dL (75-99)
[2019-03-25] MEDS: IPRATROPIUM-ALBUTEROL 3 ML NEB INHALATION SCH ×4 (07:41→20:40)
[2019-03-25 08:16] LABS: Glucose,Whole Blood 172 mg/dL (75-99)
[2019-03-25] MEDS: PANTOPRAZOLE 40 MG/10 ML VIAL IVP SCH (08:35)
[2019-03-25] MEDS: FENOFIBRATE 160 MG TAB PO SCH (08:35)
[2019-03-25] MEDS: AMIODARONE 200 MG TAB PO SCH ×3 (08:35→21:15)
[2019-03-25] MEDS: ASPIRIN 81 MG PO SCH (08:35)
[2019-03-25] MEDS: CHLORHEXIDINE GLUCONATE 15 ML CUP MUCOUS MEM SCH ×2 (08:35→21:15)
[2019-03-25] MEDS: 1: MVI, ADULT NO.4 WITH VIT K 10 ML, TRACE (CONC-1ML/DOSE) 1 ML, POTASSIUM CHLORIDE 20 M IV SCH ×8 (08:38→21:17)
[2019-03-25 08:59] LABS: Glucose,Whole Blood 178 mg/dL (75-99)
--- NOTE | 2019-03-25 09:30 | P.PN ---
Subjective Progress Note Date: 03/25/19 This 73-year-old gentleman is is still intubated. Attempt to extubate him yesterday resultant tachypnea and tachycardia. Another weaning trial will be done today. He is in paroxysmal atrial fibrillation. I'm going to initiate him on beta luisa along with increasing the dose of the Po amiodarone. Patient has received Lasix and had some urine output yesterday. His creatinine is 1.8. Continue the rest of the medication. 03/25/2019: This is 73 old gentleman was admitted after cardiac catheterization for hydration. 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 Subsequently, patient developed findings consistent CHF and non-STEMI. He also developed atrial fibrillation with a rapid ventricular response. Subsequently was noted to have ischemic bowel and had surgery done. Patient seemed to be Hemodynamically stable at this time. His weaning attempts resultant tachypnea and tachycardia. Patient's adrenal function symptomatically improving. Creatinine is 1.8. The chest x-ray also shows improvement. CBC shows elevated white count. Could be related to steroids. We'll continue current medical therapy. Another attempt will be made to wean him off the respirator. Objective - Vital Signs Vital signs: Vital Signs Temp 99.1 F 03/25/19 08:00 Pulse 68 03/25/19 08:30 Resp 20 03/25/19 08:30 BP 125/54 03/24/19 22:00 Pulse Ox 96 03/25/19 08:30 Intake & Output 03/24/19 03/25/19 03/25/19 18:59 06:59 18:59 Intake Total 5143.954 6284.972 488.825 Output Total 1660 1535 335 Balance 623.122 3660.972 153.825 Weight 75.4 kg Intake: IV 1336 1439.0 309 .9 240 240 60 Piperacillin-Tazobactam 3 100 200 .375 gm In Sodium Chloride 0.9% 100 ml @ 25 mls/hr IVPB Q8H [facility] Rx#: [id number] TPN 996 999.0 249 Intake, IV Titration 039.413 0573.972 179.825 Amount Heparin Sod,Pork in 0.45% 250.000 244.807 NaCl 25,000 unit In 0.45 % NaCl 1 250ml.bag @ 12 UNITS/KG/HR 8.712 mls/hr IV .Q24H [facility] Rx#: [id number] Insulin Regular 100 unit 62.268 53.372 10.622 In Sodium Chloride 0.9% 100 ml @ Per Protocol IV .Q0M [facility] Rx#:[id number] Mvi, Adult No.4 with Vit 1021 K 10 ml Trace (Conc-1Ml/ Dose) 1 ml Potassium Chloride 20 meq In Amino Acid 4.25%-D10w+Lytes*E* 1,000 ml @ 83 mls/hr IV . BY DURATION [facility] Rx#: [id number] Norepinephrine 8 mg In 296.632 134.515 133.622 Sodium Chloride 0.9% 250 ml @ 0.05 MCG/KG/MIN 7.44 mls/hr IV .Q24H [facility] Rx#: [id number] Propofol 1,000 mg In 54.76 191.278 35.581 Empty Bag 1 bag @ Titrate IV .Q0M [facility] Rx#: [id number] Output: Gastric Drainage 150 50 150 Urine 1510 985 185 Stool 500 Other: Voiding Method Indwelling Catheter Indwelling Catheter # Voids 1 # Bowel Movements 400 ABP, PAP, CO, CI - Last Documented Arterial Blood Pressure 129/41 - Exam GENERAL EXAM: Patient is intubated HEENT: Normocephalic. Normal reaction of pupils, equal size, normal range of extraocular motion. No erythema or exudates in the throat. NECK: No masses, no nuchal rigidity. CHEST: No chest wall deformity. LUNGS: Diminished breath sounds at bases HEART: S1 and S2 normal. Irregular heart rhythm ABDOMEN: No hepatosplenomegaly, normal bowel sounds, no guarding or rigidity. SKIN: No rashes CENTRAL NERVOUS SYSTEM: Not assessed EXTREMITIES: No cyanosis, clubbing or edema. - Labs CBC & Chem 7: 03/25/19 05:20 03/25/19 05:20 Labs: Abnormal Lab Results - Last 24 Hours (Table) 03/24/19 03/24/19 03/24/19 Range/Units 11:09 11:59 13:03 WBC (3.8-10.6) k/uL RBC (4.30-5.90) m/uL Hgb (13.0-17.5) gm/dL Hct (39.0-53.0) % Neutrophils # (1.3-7.7) k/uL Lymphocytes # (1.0-4.8) k/uL APTT (22.0-30.0) sec ABG Total CO2 (19-24) mmol/L ABG O2 Saturation (94-97) % BUN (9-20) mg/dL Creatinine (0.66-1.25) mg/dL Glucose (74-99) mg/dL POC Glucose (mg/dL) 201 H 215 H 212 H (75-99) mg/dL Calcium (8.4-10.2) mg/dL 03/24/19 03/24/19 03/24/19 Range/Units 14:05 15:06 15:06 WBC (3.8-10.6) k/uL RBC (4.30-5.90) m/uL Hgb (13.0-17.5) gm/dL Hct (39.0-53.0) % Neutrophils # (1.3-7.7) k/uL Lymphocytes # (1.0-4.8) k/uL APTT 57.0 H (22.0-30.0) sec ABG Total CO2 (19-24) mmol/L ABG O2 Saturation (94-97) % BUN (9-20) mg/dL Creatinine (0.66-1.25) mg/dL Glucose (74-99) mg/dL POC Glucose (mg/dL) 214 H 175 H (75-99) mg/dL Calcium (8.4-10.2) mg/dL 03/24/19 03/24/19 03/24/19 Range/Units 16:00 17:10 18:01 WBC (3.8-10.6) k/uL RBC (4.30-5.90) m/uL Hgb (13.0-17.5) gm/dL Hct (39.0-53.0) % Neutrophils # (1.3-7.7) k/uL Lymphocytes # (1.0-4.8) k/uL APTT (22.0-30.0) sec ABG Total CO2 (19-24) mmol/L ABG O2 Saturation (94-97) % BUN (9-20) mg/dL Creatinine (0.66-1.25) mg/dL Glucose (74-99) mg/dL POC Glucose (mg/dL) 153 H 142 H 134 H (75-99) mg/dL Calcium (8.4-10.2) mg/dL 03/24/19 03/24/19 03/24/19 Range/Units 18:56 20:10 22:05 WBC (3.8-10.6) k/uL RBC (4.30-5.90) m/uL Hgb (13.0-17.5) gm/dL Hct (39.0-53.0) % Neutrophils # (1.3-7.7) k/uL Lymphocytes # (1.0-4.8) k/uL APTT (22.0-30.0) sec ABG Total CO2 (19-24) mmol/L ABG O2 Saturation (94-97) % BUN (9-20) mg/dL Creatinine (0.66-1.25) mg/dL Glucose (74-99) mg/dL POC Glucose (mg/dL) 124 H 139 H 182 H (75-99) mg/dL Calcium (8.4-10.2) mg/dL 03/24/19 03/24/19 03/25/19 Range/Units 23:01 23:54 01:01 WBC (3.8-10.6) k/uL RBC (4.30-5.90) m/uL Hgb (13.0-17.5) gm/dL Hct (39.0-53.0) % Neutrophils # (1.3-7.7) k/uL Lymphocytes # (1.0-4.8) k/uL APTT (22.0-30.0) sec ABG Total CO2 (19-24) mmol/L ABG O2 Saturation (94-97) % BUN (9-20) mg/dL Creatinine (0.66-1.25) mg/dL Glucose (74-99) mg/dL POC Glucose (mg/dL) 222 H 221 H 229 H (75-99) mg/dL Calcium (8.4-10.2) mg/dL 03/25/19 03/25/19 03/25/19 Range/Units 02:05 03:17 04:03 WBC (3.8-10.6) k/uL RBC (4.30-5.90) m/uL Hgb (13.0-17.5) gm/dL Hct (39.0-53.0) % Neutrophils # (1.3-7.7) k/uL Lymphocytes # (1.0-4.8) k/uL APTT (22.0-30.0) sec ABG Total CO2 (19-24) mmol/L ABG O2 Saturation (94-97) % BUN (9-20) mg/dL Creatinine (0.66-1.25) mg/dL Glucose (74-99) mg/dL POC Glucose (mg/dL) 201 H 171 H 153 H (75-99) mg/dL Calcium (8.4-10.2) mg/dL 03/25/19 03/25/19 03/25/19 Range/Units 05:13 05:20 05:20 WBC 20.8 H (3.8-10.6) k/uL RBC 3.18 L (4.30-5.90) m/uL Hgb 8.9 L (13.0-17.5) gm/dL Hct 27.6 L (39.0-53.0) % Neutrophils # 19.1 H (1.3-7.7) k/uL Lymphocytes # 0.5 L (1.0-4.8) k/uL APTT (22.0-30.0) sec ABG Total CO2 (19-24) mmol/L ABG O2 Saturation (94-97) % BUN 67 H (9-20) mg/dL Creatinine 1.86 H (0.66-1.25) mg/dL Glucose 131 H (74-99) mg/dL POC Glucose (mg/dL) 139 H (75-99) mg/dL Calcium 7.8 L (8.4-10.2) mg/dL 03/25/19 03/25/19 03/25/19 Range/Units 05:20 05:42 06:10 WBC (3.8-10.6) k/uL RBC (4.30-5.90) m/uL Hgb (13.0-17.5) gm/dL Hct (39.0-53.0) % Neutrophils # (1.3-7.7) k/uL Lymphocytes # (1.0-4.8) k/uL APTT 52.8 H (22.0-30.0) sec ABG Total CO2 25 H (19-24) mmol/L ABG O2 Saturation 97.6 H (94-97) % BUN (9-20) mg/dL Creatinine (0.66-1.25) mg/dL Glucose (74-99) mg/dL POC Glucose (mg/dL) 131 H (75-99) mg/dL Calcium (8.4-10.2) mg/dL 03/25/19 03/25/19 03/25/19 Range/Units 07:04 07:29 08:15 WBC (3.8-10.6) k/uL RBC (4.30-5.90) m/uL Hgb (13.0-17.5) gm/dL Hct (39.0-53.0) % Neutrophils # (1.3-7.7) k/uL Lymphocytes # (1.0-4.8) k/uL APTT (22.0-30.0) sec ABG Total CO2 (19-24) mmol/L ABG O2 Saturation (94-97) % BUN (9-20) mg/dL Creatinine (0.66-1.25) mg/dL Glucose (74-99) mg/dL POC Glucose (mg/dL) 144 H 166 H 172 H (75-99) mg/dL Calcium (8.4-10.2) mg/dL 03/25/19 Range/Units 08:57 WBC (3.8-10.6) k/uL RBC (4.30-5.90) m/uL Hgb (13.0-17.5) gm/dL Hct (39.0-53.0) % Neutrophils # (1.3-7.7) k/uL Lymphocytes # (1.0-4.8) k/uL APTT (22.0-30.0) sec ABG Total CO2 (19-24) mmol/L ABG O2 Saturation (94-97) % BUN (9-20) mg/dL Creatinine (0.66-1.25) mg/dL Glucose (74-99) mg/dL POC Glucose (mg/dL) 178 H (75-99) mg/dL Calcium (8.4-10.2) mg/dL Microbiology - Last 24 Hours (Table) 03/22/19 03:58 Gram Stain - Final Sputum Sputum Culture - Final Mayelin albicans Assessment and Plan (1) Triple vessel disease of the heart Current Visit: Yes Status: Acute Code(s): I25.10 - ATHSCL HEART DISEASE OF [place] CORONARY ARTERY W/O ANG PCTRS SNOMED Code(s): 444373519 (2) Acute exacerbation of chronic obstructive airways disease Current Visit: No Status: Acute Code(s): J44.1 - CHRONIC OBSTRUCTIVE PULMONARY DISEASE W (ACUTE) EXACERBATION SNOMED Code(s): 536899233 (3) Pulmonary edema Current Visit: Yes Status: Acute Code(s): J81.1 - CHRONIC PULMONARY EDEMA SNOMED Code(s): 56296721 Plan: Continue current medical therapy with amiodarone, metoprolol and anticoagulation. Weaning trial will be attempted today. Prognosis is still guarded
[2019-03-25 10:11] LABS: Glucose,Whole Blood 172 mg/dL (75-99)
[2019-03-25 11:13] LABS: Glucose,Whole Blood 142 mg/dL (75-99)
--- NOTE | 2019-03-25 13:21 | P.PN ---
Subjective Progress Note Date: 03/25/19 Principal diagnosis: on 03/24/2019 the patient is postop day #3. The patient underwent bowel resection for an acute ischemic bowel and the patient underwent small bowel resection, ileal resection, jejunal resection with diverting jejunostomy. A breeze spontaneous breathing trial was given to him yesterday. The patient feels he became tachypneic and tachycardic and restless. This was aborted. The same will be done today. I feel that he is essentially stable. He remains on a mechanical ventilator on assist control mode at the rate of 12 with a tidal volume of 500 and FiO2 of 40% with a PEEP of 5. Chest x-ray showing pulmonary vascular congestion/small effusion the lungs left more than right. ET tube is in a good location. He is a left IJ triple lumen catheter in place. The patient was given a dose of Lasix yesterday. He did produce some urine output. His creatinine is down to 1.8. The neck fluid balance is +600 mL over the past 24 hours. The creatinine is improving. He is on and off in atrial fibrillation. After being taken off the amiodarone drip, he was placed on oral amiodarone and this morning is back into atrial fibrillation with a controlled rate. His heart rate goes sometimes in the low 100s. The patient was seen by cardiology. Metoprolol was added. His amiodarone dose was also increased up to 200 mg 3 times a day. He is on IV heparin. He is on norepinephrine infusion which is running at a low backup rate of 0.09 g per KG per minute. He is receiving TPN for nutritional support. He is afebrile for now. All of the cultures of been negative thus far..Note that the patient has COPD,, his FEV1 is normal to 52% of predicted, he has history of diabetes and history of bladder cancer and he has history of stage III kidney disease with polycystic kidney disease disorder. Reevaluated today on 03/25/2019, patient remains on mechanical ventilation, intubated, sedated, ventilator settings are assist control rate of 12, tidal vol ume is 500 FiO2 40% PEEP of 5. Patient remains on insulin drip, norepinephrine drip at 0.07 mcg/kg/m, remains on propofol which I have discontinued, he is on heparin drip and on TPN. Patient is postoperative day #4. Chest x-ray showed minimal hazy densities at the bases, most likely atelectasis and possibly a small pleural effusion noted. Labs showed the PEEP cigar 20.8 hemoglobin 8.9 ABG showed a pO2 of 98 pCO2 of 40 pH of 7.40. Renal functioning is about the same, creatinine is 1.86. Patient remains on TPN. Patient is not responsive to any stimuli, hence I have discontinued his propofol, and I have switched him to a pressure support and CPAP with a pressure support of 12, previous trial of weaning have failed by Dr. Aguiar, patient developed significant tachypnea and tachycardia with CPAP, however I will try adding pressure support of 12, and we will closely monitor for potential extubation if his mental status improves. Objective - Vital Signs Vital signs: Vital Signs Temp 99.1 F 03/25/19 08:00 Pulse 65 03/25/19 12:47 Resp 20 03/25/19 10:30 BP 125/54 03/24/19 22:00 Pulse Ox 97 03/25/19 10:30 Intake & Output 03/24/19 03/25/19 03/25/19 18:59 06:59 18:59 Intake Total 0400.285 2367.972 733.218 Output Total 1660 1535 530 Balance 684.647 3608.972 203.218 Weight 75.4 kg Intake: IV 1336 1439.0 515 .9 240 240 100 Piperacillin-Tazobactam 3 100 200 .375 gm In Sodium Chloride 0.9% 100 ml @ 25 mls/hr IVPB Q8H [facility] Rx#: [id number] TPN 996 999.0 415 Intake, IV Titration 392.483 6001.972 218.218 Amount Heparin Sod,Pork in 0.45% 250.000 244.807 NaCl 25,000 unit In 0.45 % NaCl 1 250ml.bag @ 12 UNITS/KG/HR 8.712 mls/hr IV .Q24H [facility] Rx#: [id number] Insulin Regular 100 unit 62.268 53.372 27.439 In Sodium Chloride 0.9% 100 ml @ Per Protocol IV .Q0M [facility] Rx#:[id number] Mvi, Adult No.4 with Vit 1021 K 10 ml Trace (Conc-1Ml/ Dose) 1 ml Potassium Chloride 20 meq In Amino Acid 4.25%-D10w+Lytes*E* 1,000 ml @ 83 mls/hr IV . BY DURATION [facility] Rx#: [id number] Norepinephrine 8 mg In 296.632 134.515 155.198 Sodium Chloride 0.9% 250 ml @ 0.05 MCG/KG/MIN 7.44 mls/hr IV .Q24H [facility] Rx#: [id number] Propofol 1,000 mg In 54.76 191.278 35.581 Empty Bag 1 bag @ Titrate IV .Q0M [facility] Rx#: [id number] Output: Gastric Drainage 150 50 150 Urine 1510 985 380 Stool 500 Other: Voiding Method Indwelling Catheter Indwelling Catheter # Voids 1 # Bowel Movements 400 ABP, PAP, CO, CI - Last Documented Arterial Blood Pressure 122/40 - Exam Physical Exam: Revealed a 73-year-old white male intubated on mechanical ventilation, not responding to any stimuli, he is on propofol drip. Head: Atraumatic, normocephalic. Endotracheal tube and orogastric tube are intact. HEENT:[Neck is supple.] [No neck masses.] [No thyromegaly.] [No JVD.] PERRLA, EOMI, no icterus. Chest: [Symmetrical chest expansion, crackles at the bases bilaterally. Some wheezing. Cardiac Exam: [Normal S1 and S2, no S3 gallop, no murmur.] Abdomen: [ reveals absent absent bowel sounds, jejunostomy site is viable and there is some liquidy material collecting in the back. The patient also has a mid abdominal incision which is dry clean and intact at this point in time.. Extremities: [No clubbing, no edema, no cyanosis.] Neurological Exam: Sedated, on propofol, calm and comfortable, we will assess mental status while he is off propofol. Psychiatric: Cannot be obtained. Skin: No rashes. - Labs CBC & Chem 7: 03/25/19 05:20 03/25/19 05:20 Labs: Abnormal Lab Results - Last 24 Hours (Table) 03/24/19 03/24/19 03/24/19 Range/Units 14:05 15:06 15:06 WBC (3.8-10.6) k/uL RBC (4.30-5.90) m/uL Hgb (13.0-17.5) gm/dL Hct (39.0-53.0) % Neutrophils # (1.3-7.7) k/uL Lymphocytes # (1.0-4.8) k/uL APTT 57.0 H (22.0-30.0) sec ABG Total CO2 (19-24) mmol/L ABG O2 Saturation (94-97) % BUN (9-20) mg/dL Creatinine (0.66-1.25) mg/dL Glucose (74-99) mg/dL POC Glucose (mg/dL) 214 H 175 H (75-99) mg/dL Calcium (8.4-10.2) mg/dL 03/24/19 03/24/19 03/24/19 Range/Units 16:00 17:10 18:01 WBC (3.8-10.6) k/uL RBC (4.30-5.90) m/uL Hgb (13.0-17.5) gm/dL Hct (39.0-53.0) % Neutrophils # (1.3-7.7) k/uL Lymphocytes # (1.0-4.8) k/uL APTT (22.0-30.0) sec ABG Total CO2 (19-24) mmol/L ABG O2 Saturation (94-97) % BUN (9-20) mg/dL Creatinine (0.66-1.25) mg/dL Glucose (74-99) mg/dL POC Glucose (mg/dL) 153 H 142 H 134 H (75-99) mg/dL Calcium (8.4-10.2) mg/dL 03/24/19 03/24/19 03/24/19 Range/Units 18:56 20:10 22:05 WBC (3.8-10.6) k/uL RBC (4.30-5.90) m/uL Hgb (13.0-17.5) gm/dL Hct (39.0-53.0) % Neutrophils # (1.3-7.7) k/uL Lymphocytes # (1.0-4.8) k/uL APTT (22.0-30.0) sec ABG Total CO2 (19-24) mmol/L ABG O2 Saturation (94-97) % BUN (9-20) mg/dL Creatinine (0.66-1.25) mg/dL Glucose (74-99) mg/dL POC Glucose (mg/dL) 124 H 139 H 182 H (75-99) mg/dL Calcium (8.4-10.2) mg/dL 03/24/19 03/24/19 03/25/19 Range/Units 23:01 23:54 01:01 WBC (3.8-10.6) k/uL RBC (4.30-5.90) m/uL Hgb (13.0-17.5) gm/dL Hct (39.0-53.0) % Neutrophils # (1.3-7.7) k/uL Lymphocytes # (1.0-4.8) k/uL APTT (22.0-30.0) sec ABG Total CO2 (19-24) mmol/L ABG O2 Saturation (94-97) % BUN (9-20) mg/dL Creatinine (0.66-1.25) mg/dL Glucose (74-99) mg/dL POC Glucose (mg/dL) 222 H 221 H 229 H (75-99) mg/dL Calcium (8.4-10.2) mg/dL 03/25/19 03/25/19 03/25/19 Range/Units 02:05 03:17 04:03 WBC (3.8-10.6) k/uL RBC (4.30-5.90) m/uL Hgb (13.0-17.5) gm/dL Hct (39.0-53.0) % Neutrophils # (1.3-7.7) k/uL Lymphocytes # (1.0-4.8) k/uL APTT (22.0-30.0) sec ABG Total CO2 (19-24) mmol/L ABG O2 Saturation (94-97) % BUN (9-20) mg/dL Creatinine (0.66-1.25) mg/dL Glucose (74-99) mg/dL POC Glucose (mg/dL) 201 H 171 H 153 H (75-99) mg/dL Calcium (8.4-10.2) mg/dL 03/25/19 03/25/19 03/25/19 Range/Units 05:13 05:20 05:20 WBC 20.8 H (3.8-10.6) k/uL RBC 3.18 L (4.30-5.90) m/uL Hgb 8.9 L (13.0-17.5) gm/dL Hct 27.6 L (39.0-53.0) % Neutrophils # 19.1 H (1.3-7.7) k/uL Lymphocytes # 0.5 L (1.0-4.8) k/uL APTT (22.0-30.0) sec ABG Total CO2 (19-24) mmol/L ABG O2 Saturation (94-97) % BUN 67 H (9-20) mg/dL Creatinine 1.86 H (0.66-1.25) mg/dL Glucose 131 H (74-99) mg/dL POC Glucose (mg/dL) 139 H (75-99) mg/dL Calcium 7.8 L (8.4-10.2) mg/dL 03/25/19 03/25/19 03/25/19 Range/Units 05:20 05:42 06:10 WBC (3.8-10.6) k/uL RBC (4.30-5.90) m/uL Hgb (13.0-17.5) gm/dL Hct (39.0-53.0) % Neutrophils # (1.3-7.7) k/uL Lymphocytes # (1.0-4.8) k/uL APTT 52.8 H (22.0-30.0) sec ABG Total CO2 25 H (19-24) mmol/L ABG O2 Saturation 97.6 H (94-97) % BUN (9-20) mg/dL Creatinine (0.66-1.25) mg/dL Glucose (74-99) mg/dL POC Glucose (mg/dL) 131 H (75-99) mg/dL Calcium (8.4-10.2) mg/dL 03/25/19 03/25/19 03/25/19 Range/Units 07:04 07:29 08:15 WBC (3.8-10.6) k/uL RBC (4.30-5.90) m/uL Hgb (13.0-17.5) gm/dL Hct (39.0-53.0) % Neutrophils # (1.3-7.7) k/uL Lymphocytes # (1.0-4.8) k/uL APTT (22.0-30.0) sec ABG Total CO2 (19-24) mmol/L ABG O2 Saturation (94-97) % BUN (9-20) mg/dL Creatinine (0.66-1.25) mg/dL Glucose (74-99) mg/dL POC Glucose (mg/dL) 144 H 166 H 172 H (75-99) mg/dL Calcium (8.4-10.2) mg/dL 03/25/19 03/25/19 03/25/19 Range/Units 08:57 10:10 11:11 WBC (3.8-10.6) k/uL RBC (4.30-5.90) m/uL Hgb (13.0-17.5) gm/dL Hct (39.0-53.0) % Neutrophils # (1.3-7.7) k/uL Lymphocytes # (1.0-4.8) k/uL APTT (22.0-30.0) sec ABG Total CO2 (19-24) mmol/L ABG O2 Saturation (94-97) % BUN (9-20) mg/dL Creatinine (0.66-1.25) mg/dL Glucose (74-99) mg/dL POC Glucose (mg/dL) 178 H 172 H 142 H (75-99) mg/dL Calcium (8.4-10.2) mg/dL Microbiology - Last 24 Hours (Table) 03/22/19 03:58 Gram Stain - Final Sputum Sputum Culture - Final Mayelin albicans Assessment and Plan Assessment: Impression: Severe multivessel coronary artery disease, post non-ST elevation myocardial inf arction. Patient was being considered for surgery, however considering his ischemic bowel issue that is presently on hold. Ischemic cardiomyopathy and LV dysfunction ejection fraction of 35%. Severe pulmonary hypertension Moderate severe mitral regurgitation Acute ischemic small bowel requiring exploratory laparotomy, and ileal/a jejunostomy resection and diverting jejunostomy. Postoperative day #4. Type 2 diabetes, currently on insulin as per protocol. Hyperlipidemia. Polycystic kidney disease. Chronic obstructive pulmonary disease and chronic smoking history. Chronic stage III kidney failure with acute on chronic kidney disease, improving but not resolved Benign essential hypertension. Severe pulmonary hypertension and moderate to severe mitral regurgitation. Recommendation: Continue ventilatory support, and adjust ventilator settings accordingly on a daily basis. Hold propofol, and consider weaning trial with a pressure support and CPAP if the patient wakes up and follows simple instructions. Continue empiric antibiotics. Continue diuretics as needed. Continue cardiac meds as per cardiology. Continue to monitor renal status. Continue daily chest x-rays. Continue TPN. Continue GI and DVT prophylaxis. We will continue to follow. Prognosis is definitely guarded at this point. Critical care time is 35 minutes. Time with Patient: Greater than 30
[2019-03-25 13:46] LABS: Glucose,Whole Blood 141 mg/dL (75-99)
--- NOTE | 2019-03-25 14:51 | P.PN ---
Subjective Patient is status post laparotomy for a small wall ischemia consider necrosis. The patient the surgical risk is very high as it wasn't emergent surgery patient underwent surgery and patient is presently intubated patient in shock broad- spectrum antibiotics patient on propofol and norepinephrine. Patient was having a low-grade temperatures and patient is presently receiving TPN for nutritional support. Patient has colostomy as well patient has a major three-vessel disease and patient was in A. fib patient of the proximal A. fib presently on amiodarone wasn't is sinus rhythm was sinus tachycardia. Does have history of chronic kidney disease stage III from polycystic kidney 03/23/2019 No significant change in clinical condition patient remains on norepinephrine remains intubated. Patient urine output is good patient remains on normal saline at 100 mL per hour. 03/24/2019 Patient is bit more awake today weaning of sedation although patient did undergo spontaneous breathing trial yet today. Patient is still on norepinephrine, IV h eparin, IV normal saline which is cut down to 20 mL now patient actually received Lasix with the good urine output. 03/25/2019 Patient is norepinephrine is being weaned off, patient is presently receiving IV Lasix patient has small left pleural effusion creatinine although improved to 1.86 sedation is being discontinued and patient will undergo weaning trial. Review of systems: Unable to obtain due to his clinical condition All inpatient medications were reviewed and appropriate changes in these medications as dictated in the interval history and assessment and plan. Objective - Vital Signs Vital signs: Vital Signs Temp 98.4 F 03/25/19 12:00 Pulse 61 03/25/19 14:00 Resp 29 H 03/25/19 14:00 BP 125/54 03/24/19 22:00 Pulse Ox 98 03/25/19 14:00 Intake & Output 03/24/19 03/25/19 03/25/19 18:59 06:59 18:59 Intake Total 6147.088 2247.972 733.218 Output Total 1660 1535 530 Balance 848.794 0461.972 203.218 Weight 75.4 kg 75.4 kg Intake: IV 1336 1439.0 515 .9 240 240 100 Piperacillin-Tazobactam 3 100 200 .375 gm In Sodium Chloride 0.9% 100 ml @ 25 mls/hr IVPB Q8H [facility] Rx#: [id number] TPN 996 999.0 415 Intake, IV Titration 191.546 5275.972 218.218 Amount Heparin Sod,Pork in 0.45% 250.000 244.807 NaCl 25,000 unit In 0.45 % NaCl 1 250ml.bag @ 12 UNITS/KG/HR 8.712 mls/hr IV .Q24H [facility] Rx#: [id number] Insulin Regular 100 unit 62.268 53.372 27.439 In Sodium Chloride 0.9% 100 ml @ Per Protocol IV .Q0M [facility] Rx#:[id number] Mvi, Adult No.4 with Vit 1021 K 10 ml Trace (Conc-1Ml/ Dose) 1 ml Potassium Chloride 20 meq In Amino Acid 4.25%-D10w+Lytes*E* 1,000 ml @ 83 mls/hr IV . BY DURATION [facility] Rx#: [id number] Norepinephrine 8 mg In 296.632 134.515 155.198 Sodium Chloride 0.9% 250 ml @ 0.05 MCG/KG/MIN 7.44 mls/hr IV .Q24H [facility] Rx#: [id number] Propofol 1,000 mg In 54.76 191.278 35.581 Empty Bag 1 bag @ Titrate IV .Q0M [facility] Rx#: [id number] Output: Gastric Drainage 150 50 150 Urine 1510 985 380 Stool 500 Other: Voiding Method Indwelling Catheter Indwelling Catheter # Voids 1 # Bowel Movements 400 ABP, PAP, CO, CI - Last Documented Arterial Blood Pressure 141/41 - Exam PHYSICAL EXAMINATION: GENERAL: Intubated sedated, fully catheter in place HEENT: Pupils are round and equally reacting to light. EOMI. No scleral icterus. No conjunctival pallor. Normocephalic, atraumatic. No pharyngeal erythema. No thyromegaly. CARDIOVASCULAR: S1 and S2 present. No murmurs, rubs, or gallops. Tachycardic PULMONARY: Bilateral expiratory wheezing was appreciated ABDOMEN: Bowel sounds are absent jejunostomy tube in place MUSCULOSKELETAL: No joint swelling or deformity. EXTREMITIES: No cyanosis, clubbing, or pedal edema. NEUROLOGICAL: Gross neurological examination did not reveal any focal deficits. SKIN: No rashes. - Labs CBC & Chem 7: 03/25/19 05:20 03/25/19 05:20 Labs: Abnormal Lab Results - Last 24 Hours (Table) 12/03/24/19 03/24/19 Range/Units 15:06 15:06 16:00 WBC (3.8-10.6) k/uL RBC (4.30-5.90) m/uL Hgb (13.0-17.5) gm/dL Hct (39.0-53.0) % Neutrophils # (1.3-7.7) k/uL Lymphocytes # (1.0-4.8) k/uL APTT 57.0 H (22.0-30.0) sec ABG Total CO2 (19-24) mmol/L ABG O2 Saturation (94-97) % BUN (9-20) mg/dL Creatinine (0.66-1.25) mg/dL Glucose (74-99) mg/dL POC Glucose (mg/dL) 175 H 153 H (75-99) mg/dL Calcium (8.4-10.2) mg/dL 03/24/19 03/24/19 03/24/19 Range/Units 17:10 18:01 18:56 WBC (3.8-10.6) k/uL RBC (4.30-5.90) m/uL Hgb (13.0-17.5) gm/dL Hct (39.0-53.0) % Neutrophils # (1.3-7.7) k/uL Lymphocytes # (1.0-4.8) k/uL APTT (22.0-30.0) sec ABG Total CO2 (19-24) mmol/L ABG O2 Saturation (94-97) % BUN (9-20) mg/dL Creatinine (0.66-1.25) mg/dL Glucose (74-99) mg/dL POC Glucose (mg/dL) 142 H 134 H 124 H (75-99) mg/dL Calcium (8.4-10.2) mg/dL 03/24/19 03/24/19 03/24/19 Range/Units 20:10 22:05 23:01 WBC (3.8-10.6) k/uL RBC (4.30-5.90) m/uL Hgb (13.0-17.5) gm/dL Hct (39.0-53.0) % Neutrophils # (1.3-7.7) k/uL Lymphocytes # (1.0-4.8) k/uL APTT (22.0-30.0) sec ABG Total CO2 (19-24) mmol/L ABG O2 Saturation (94-97) % BUN (9-20) mg/dL Creatinine (0.66-1.25) mg/dL Glucose (74-99) mg/dL POC Glucose (mg/dL) 139 H 182 H 222 H (75-99) mg/dL Calcium (8.4-10.2) mg/dL 03/24/19 03/25/19 03/25/19 Range/Units 23:54 01:01 02:05 WBC (3.8-10.6) k/uL RBC (4.30-5.90) m/uL Hgb (13.0-17.5) gm/dL Hct (39.0-53.0) % Neutrophils # (1.3-7.7) k/uL Lymphocytes # (1.0-4.8) k/uL APTT (22.0-30.0) sec ABG Total CO2 (19-24) mmol/L ABG O2 Saturation (94-97) % BUN (9-20) mg/dL Creatinine (0.66-1.25) mg/dL Glucose (74-99) mg/dL POC Glucose (mg/dL) 221 H 229 H 201 H (75-99) mg/dL Calcium (8.4-10.2) mg/dL 03/25/19 03/25/19 03/25/19 Range/Units 03:17 04:03 05:13 WBC (3.8-10.6) k/uL RBC (4.30-5.90) m/uL Hgb (13.0-17.5) gm/dL Hct (39.0-53.0) % Neutrophils # (1.3-7.7) k/uL Lymphocytes # (1.0-4.8) k/uL APTT (22.0-30.0) sec ABG Total CO2 (19-24) mmol/L ABG O2 Saturation (94-97) % BUN (9-20) mg/dL Creatinine (0.66-1.25) mg/dL Glucose (74-99) mg/dL POC Glucose (mg/dL) 171 H 153 H 139 H (75-99) mg/dL Calcium (8.4-10.2) mg/dL 03/25/19 03/25/19 03/25/19 Range/Units 05:20 05:20 05:20 WBC 20.8 H (3.8-10.6) k/uL RBC 3.18 L (4.30-5.90) m/uL Hgb 8.9 L (13.0-17.5) gm/dL Hct 27.6 L (39.0-53.0) % Neutrophils # 19.1 H (1.3-7.7) k/uL Lymphocytes # 0.5 L (1.0-4.8) k/uL APTT 52.8 H (22.0-30.0) sec ABG Total CO2 (19-24) mmol/L ABG O2 Saturation (94-97) % BUN 67 H (9-20) mg/dL Creatinine 1.86 H (0.66-1.25) mg/dL Glucose 131 H (74-99) mg/dL POC Glucose (mg/dL) (75-99) mg/dL Calcium 7.8 L (8.4-10.2) mg/dL 03/25/19 03/25/19 03/25/19 Range/Units 05:42 06:10 07:04 WBC (3.8-10.6) k/uL RBC (4.30-5.90) m/uL Hgb (13.0-17.5) gm/dL Hct (39.0-53.0) % Neutrophils # (1.3-7.7) k/uL Lymphocytes # (1.0-4.8) k/uL APTT (22.0-30.0) sec ABG Total CO2 25 H (19-24) mmol/L ABG O2 Saturation 97.6 H (94-97) % BUN (9-20) mg/dL Creatinine (0.66-1.25) mg/dL Glucose (74-99) mg/dL POC Glucose (mg/dL) 131 H 144 H (75-99) mg/dL Calcium (8.4-10.2) mg/dL 03/25/19 03/25/19 03/25/19 Range/Units 07:29 08:15 08:57 WBC (3.8-10.6) k/uL RBC (4.30-5.90) m/uL Hgb (13.0-17.5) gm/dL Hct (39.0-53.0) % Neutrophils # (1.3-7.7) k/uL Lymphocytes # (1.0-4.8) k/uL APTT (22.0-30.0) sec ABG Total CO2 (19-24) mmol/L ABG O2 Saturation (94-97) % BUN (9-20) mg/dL Creatinine (0.66-1.25) mg/dL Glucose (74-99) mg/dL POC Glucose (mg/dL) 166 H 172 H 178 H (75-99) mg/dL Calcium (8.4-10.2) mg/dL 03/25/19 03/25/19 03/25/19 Range/Units 10:10 11:11 13:45 WBC (3.8-10.6) k/uL RBC (4.30-5.90) m/uL Hgb (13.0-17.5) gm/dL Hct (39.0-53.0) % Neutrophils # (1.3-7.7) k/uL Lymphocytes # (1.0-4.8) k/uL APTT (22.0-30.0) sec ABG Total CO2 (19-24) mmol/L ABG O2 Saturation (94-97) % BUN (9-20) mg/dL Creatinine (0.66-1.25) mg/dL Glucose (74-99) mg/dL POC Glucose (mg/dL) 172 H 142 H 141 H (75-99) mg/dL Calcium (8.4-10.2) mg/dL Microbiology - Last 24 Hours (Table) 03/22/19 03:58 Gram Stain - Final Sputum Sputum Culture - Final Mayelin albicans Assessment and Plan Plan: Septic shock patient is on pressor support and the sepsis secondary to ischemic bowel. Patient is status post laparotomy and is on Zosyn. -Coronary artery disease severe multivessel 33 vessel disease patient had dyspnea for 40-45% with mitral regurgitation, patient is bit volume overloaded receiving Lasix at this time IV fluids were cut down to 20 mL per hour patient is on antiplatelet statin for this -Proximal A. fib presently sinus rhythm with PVCs and patient is on amiodarone drip which will be continued -Ventilator dependent respiratory failure secondary to sepsis management as per pulmonology -Severe pulmonary hypertension -Hyperlipidemia -Type 2 diabetes mellitus continue with present regimen depending on his sliding scale requirements with titrate the insulin regimen -Chronic kidney disease stage III with some acute kidney injury from sepsis and acute tubular necrosis chronic kidney disease secondary to diabetic nephropathy Acute renal failure: Secondary to acute tubular necrosis and prerenal azotemia which is improving -COPD with acute exacerbation -Polycystic kidney disease -Hypertension patient is presently hypotensive and is in shock -History of bladder cancer with TURP in the past Patient's overall prognosis is poor his clinical condition is guarded now
[2019-03-25 15:52] LABS: Glucose,Whole Blood 111 mg/dL (75-99)
[2019-03-25 17:04] LABS: Glucose,Whole Blood 142 mg/dL (75-99)
[2019-03-25 18:13] LABS: Glucose,Whole Blood 169 mg/dL (75-99)
[2019-03-25 19:06] LABS: Glucose,Whole Blood 188 mg/dL (75-99)
[2019-03-25] MEDS: SODIUM CHLORIDE 0.9% 1,000 ML IV SCH (20:56)
[2019-03-25 21:07] LABS: Glucose,Whole Blood 160 mg/dL (75-99)
[2019-03-25] MEDS: ATORVASTATIN 80 MG TAB PO SCH (21:15)
[2019-03-26 00:12] LABS: Glucose,Whole Blood 127 mg/dL (75-99)
[2019-03-26 01:04] LABS: Glucose,Whole Blood 144 mg/dL (75-99)
[2019-03-26 02:13] LABS: Glucose,Whole Blood 143 mg/dL (75-99)
[2019-03-26 03:12] LABS: Glucose,Whole Blood 142 mg/dL (75-99)
[2019-03-26] MEDS: PIPERACILLIN-TAZOBACTAM 3.375 GM in SODIUM CHLORIDE 0.9% 100 ML IVPB SCH ×2 (04:25→14:56)
[2019-03-26 05:01] LABS: Glucose,Whole Blood 135 mg/dL (75-99)
[2019-03-26 06:00] LABS: Glucose,Whole Blood 136 mg/dL (75-99)
[2019-03-26 06:14] LABS: Calcium 7.9 mg/dL (8.4-10.2); Magnesium 2.2 mg/dL (1.6-2.3); Phosphorus 4.4 mg/dL (2.5-4.5); Potassium 5.2 mmol/L (3.5-5.1)
--- NOTE | 2019-03-26 06:16 | XR ---
EXAMINATION TYPE: XR chest 1V portable DATE OF EXAM: 03/26/2019 CLINICAL HISTORY: Difficulty breathing progress study. TECHNIQUE: Single AP portable semiupright view of the chest is obtained. COMPARISON: Chest x-ray from one day earlier and older studies. FINDINGS: Stable endotracheal tube, orogastric tube, and left internal jugular central venous cathet er. Persistent bibasilar opacities on background chronic emphysematous change. Cardiac silhouette siz e stable and upper limits of normal atherosclerotic thoracic aorta. Osseous structures are intact. IMPRESSION: Overall stable findings, chronic emphysematous change with small bilateral pleural effu sions and associated bibasilar atelectasis and/or infiltrate are all redemonstrated.
[2019-03-26] MEDS: HEPARIN SODIUM,PORCINE 5,000 UNIT/ML 1 ML VIAL IV PRN (07:50)
--- NOTE | 2019-03-26 07:52 | P.PN ---
Progress Note - Text Progress Note Date: 03/25/19 the patient remains on the ventilator. His clinical condition is remain unchanged. On exam his vital signs are stable. Incision sites clean dry intact. Ileostomy is functioning, ileostomy is pink. Status post exploratory laparotomy for ischemic/necrotic small bowel. Patient will continue ventilatory weaning. We will continue supportive care.
[2019-03-26 08:02] LABS: ABG Base Excess -2.3 mmol/L; ABG HCO3 22 mmol/L (21-25); ABG PCO2 32 mmHg (35-45); ABG PH 7.45 (7.35-7.45); ABG PO2 102 mmHg (83-108); ABG TCO2 23 mmol/L (19-24); Allen Test Performed? Yes
[2019-03-26] MEDS: 1: MVI, ADULT NO.4 WITH VIT K 10 ML, TRACE (CONC-1ML/DOSE) 1 ML, POTASSIUM CHLORIDE 20 M IV SCH ×8 (08:02→21:17)
[2019-03-26] MEDS: METOPROLOL TARTRATE 12.5 MG TAB PO SCH ×2 (08:02→21:19)
[2019-03-26] MEDS: PROPOFOL 1,000 MG in EMPTY BAG 1 BAG IV SCH ×2 (08:09→18:21)
[2019-03-26] MEDS: AMIODARONE 200 MG TAB PO SCH ×3 (08:10→21:19)
[2019-03-26] MEDS: PANTOPRAZOLE 40 MG/10 ML VIAL IVP SCH (08:10)
[2019-03-26] MEDS: FENOFIBRATE 160 MG TAB PO SCH (08:10)
[2019-03-26] MEDS: CHLORHEXIDINE GLUCONATE 15 ML CUP MUCOUS MEM SCH ×2 (08:10→21:18)
[2019-03-26] MEDS: ASPIRIN 81 MG PO SCH (08:10)
[2019-03-26] MEDS: IPRATROPIUM-ALBUTEROL 3 ML NEB INHALATION SCH ×4 (08:11→20:03)
[2019-03-26 08:15] LABS: Glucose,Whole Blood 102 mg/dL (75-99)
[2019-03-26 11:30] LABS: Glucose,Whole Blood 216 mg/dL (75-99)
[2019-03-26] MEDS: INSULIN REGULAR 100 UNIT in SODIUM CHLORIDE 0.9% 100 ML IV SCH (11:30)
[2019-03-26 11:34] LABS: Basophils # (A) 0.1 k/uL (0-0.2); Basophils % (A) 1 %; Eosinophils # (A) 0.1 k/uL (0-0.7); Eosinophils % (A) 1 %; HCT 27.4 % (39.0-53.0); HGB 8.5 gm/dL (13.0-17.5); Hypochromasia Slight; Lymphocytes # (A) 0.5 k/uL (1.0-4.8); Lymphocytes % (A) 2 %; MCH 27.3 pg (25.0-35.0); MCV 88.1 fL (80.0-100.0); Mean Platelet Volume 9.7; Monocytes # (A) 1.3 k/uL (0-1.0); Monocytes % (A) 6 %; Neutrophils # (A) 17.7 k/uL (1.3-7.7); Neutrophils % (A) 89 %; Platelet Count 254 k/uL (150-450); RBC 3.11 m/uL (4.30-5.90); RDW 15.3 % (11.5-15.5); WBC 19.9 k/uL (3.8-10.6)
[2019-03-26] MEDS ORDERED: LORazepam 2 MG/ML INJ IV STA (11:36)
--- NOTE | 2019-03-26 12:38 | CT ---
EXAMINATION TYPE: CT brain wo con DATE OF EXAM: 03/26/2019 COMPARISON: None HISTORY: r/o bleeding; slow to arouse, altered mental status CT DLP: 1051.4 mGycm Automated exposure control for dose reduction was used. Helical imaging through the brain, department al protocol utilized FINDINGS: Dense appearance to the tentorium, falx is thought likely to be normal. Low-attenuation present withi n the basal ganglia noted, asymmetric decreased on the left as compared to right. Periventricular wh ite matter shows patchy low attenuation. There is no hydrocephalus. There is a partially empty sella. Orbits show symmetric appearance. Cortical atrophy is likely age-related. Calvarium is intact. Paran azra sinuses and mastoid air cells are normal. NG tube is in place. IMPRESSION: AGE-RELATED CHANGES OF ATROPHY AND PROBABLE CHRONIC SMALL VESSEL ISCHEMIA, DIFFICULT TO EXCLUDE SUBAC TERESA ISCHEMIA, BASAL GANGLIA SHOWED ASYMMETRY, MRI MAY BE OF BENEFIT.
[2019-03-26 12:40] LABS: Glucose,Whole Blood 224 mg/dL (75-99)
--- NOTE | 2019-03-26 12:58 | P.PN ---
Subjective Progress Note Date: 03/26/19 CHIEF COMPLAINT: abdominal pain HISTORY OF PRESENT ILLNESS: Patient examined at the bedside with Dr. Hayes. Patient remains in intensive care unit. He remains intubated and sedated. TPN infusing. PHYSICAL EXAM: VITAL SIGNS: Reviewed. GENERAL: Well-developed in no acute distress-sedated. HEENT: No sclera icterus. Extraocular movements grossly intact. Moist buccal mucosa. Head is atraumatic, normocephalic. ABDOMEN: Soft. Dressing clean dry intact. Ostomy with stool noted. NEUROLOGIC: Sedated on mechanical ventilation ASSESSMENT: 1. Abdominal pain 2. Small bowel obstruction secondary to small bowel ischemia/necrosis with perforation, s/p exploratory laparotomy, small bowel resection, and jejunostomy. PLAN: Patient currently receiving TPN. Begin tube feedings today via NG tube. Once patient is tolerating tube feedings at 50% of his goal, wean off TPN Nurse practitioner note has been reviewed by physician. Signing provider agrees with the documented findings, assessment, and plan of care. Objective - Vital Signs Vital signs: Vital Signs Temp 97.7 F 03/26/19 12:01 Pulse 70 03/26/19 12:30 Resp 22 03/26/19 12:01 BP 122/39 03/26/19 12:01 Pulse Ox 96 03/26/19 12:01 Intake & Output 03/25/19 03/26/19 03/26/19 18:59 06:59 18:59 Intake Total 2775.222 2420.907 630.487 Output Total 1530 1435 1260 Balance 1245.222 985.907 -629.513 Weight 75.4 kg 82 kg 82 kg Intake: IV 1336 1336 568 .9 240 240 70 Piperacillin-Tazobactam 3 100 100 .375 gm In Sodium Chloride 0.9% 100 ml @ 25 mls/hr IVPB Q8H [facility] Rx#: [id number] TPN 996 996 498 Intake, IV Titration 2021.503 0303.907 62.487 Amount Heparin Sod,Pork in 0.45% 0 NaCl 25,000 unit In 0.45 % NaCl 1 250ml.bag @ 12 UNITS/KG/HR 8.712 mls/hr IV .Q24H [facility] Rx#: [id number] Insulin Regular 100 unit 71.222 63.907 40.847 In Sodium Chloride 0.9% 100 ml @ Per Protocol IV .Q0M [facility] Rx#:[id number] Mvi, Adult No.4 with Vit 1021 K 10 ml Trace (Conc-1Ml/ Dose) 1 ml Potassium Chloride 20 meq In Amino Acid 4.25%-D10w+Lytes*E* 1,000 ml @ 83 mls/hr IV . BY DURATION [facility] Rx#: [id number] Norepinephrine 8 mg In 258.000 Sodium Chloride 0.9% 250 ml @ 0.05 MCG/KG/MIN 7.44 mls/hr IV .Q24H [facility] Rx#: [id number] Potassium Chloride 20 meq 1010 In Amino Acid 4.25%-D10w +Lytes*E* 1,000 ml @ 83 mls/hr IV .BY DURATION [facility] Rx#:[id number] Propofol 1,000 mg In 100.000 21.64 Empty Bag 1 bag @ Titrate IV .Q0M [facility] Rx#: [id number] Output: Gastric Drainage 150 Urine 930 1435 460 Stool 450 800 Other: Voiding Method Indwelling Catheter Indwelling Catheter Indwelling Catheter ABP, PAP, CO, CI - Last Documented Arterial Blood Pressure 121/34 - Labs CBC & Chem 7: 03/26/19 05:30 03/26/19 05:30 Labs: Abnormal Lab Results - Last 24 Hours (Table) 03/25/19 03/25/19 03/25/19 Range/Units 13:45 15:50 17:03 WBC (3.8-10.6) k/uL RBC (4.30-5.90) m/uL Hgb (13.0-17.5) gm/dL Hct (39.0-53.0) % Neutrophils # (1.3-7.7) k/uL Lymphocytes # (1.0-4.8) k/uL Monocytes # (0-1.0) k/uL ABG pCO2 (35-45) mmHg ABG O2 Saturation (94-97) % Potassium (3.5-5.1) mmol/L Chloride (98-107) mmol/L BUN (9-20) mg/dL Creatinine (0.66-1.25) mg/dL Glucose (74-99) mg/dL POC Glucose (mg/dL) 141 H 111 H 142 H (75-99) mg/dL Calcium (8.4-10.2) mg/dL 03/25/19 03/25/19 03/25/19 Range/Units 18:12 19:04 21:05 WBC (3.8-10.6) k/uL RBC (4.30-5.90) m/uL Hgb (13.0-17.5) gm/dL Hct (39.0-53.0) % Neutrophils # (1.3-7.7) k/uL Lymphocytes # (1.0-4.8) k/uL Monocytes # (0-1.0) k/uL ABG pCO2 (35-45) mmHg ABG O2 Saturation (94-97) % Potassium (3.5-5.1) mmol/L Chloride (98-107) mmol/L BUN (9-20) mg/dL Creatinine (0.66-1.25) mg/dL Glucose (74-99) mg/dL POC Glucose (mg/dL) 169 H 188 H 160 H (75-99) mg/dL Calcium (8.4-10.2) mg/dL 03/26/19 03/26/19 03/26/19 Range/Units 00:10 01:02 02:12 WBC (3.8-10.6) k/uL RBC (4.30-5.90) m/uL Hgb (13.0-17.5) gm/dL Hct (39.0-53.0) % Neutrophils # (1.3-7.7) k/uL Lymphocytes # (1.0-4.8) k/uL Monocytes # (0-1.0) k/uL ABG pCO2 (35-45) mmHg ABG O2 Saturation (94-97) % Potassium (3.5-5.1) mmol/L Chloride (98-107) mmol/L BUN (9-20) mg/dL Creatinine (0.66-1.25) mg/dL Glucose (74-99) mg/dL POC Glucose (mg/dL) 127 H 144 H 143 H (75-99) mg/dL Calcium (8.4-10.2) mg/dL 03/26/19 03/26/19 03/26/19 Range/Units 03:10 04:59 05:30 WBC (3.8-10.6) k/uL RBC (4.30-5.90) m/uL Hgb (13.0-17.5) gm/dL Hct (39.0-53.0) % Neutrophils # (1.3-7.7) k/uL Lymphocytes # (1.0-4.8) k/uL Monocytes # (0-1.0) k/uL ABG pCO2 (35-45) mmHg ABG O2 Saturation (94-97) % Potassium 5.2 H (3.5-5.1) mmol/L Chloride 109 H (98-107) mmol/L BUN 66 H (9-20) mg/dL Creatinine 1.85 H (0.66-1.25) mg/dL Glucose 128 H (74-99) mg/dL POC Glucose (mg/dL) 142 H 135 H (75-99) mg/dL Calcium 7.9 L (8.4-10.2) mg/dL 03/26/19 03/26/19 03/26/19 Range/Units 05:30 05:59 07:55 WBC 19.9 H (3.8-10.6) k/uL RBC 3.11 L (4.30-5.90) m/uL Hgb 8.5 L (13.0-17.5) gm/dL Hct 27.4 L (39.0-53.0) % Neutrophils # 17.7 H (1.3-7.7) k/uL Lymphocytes # 0.5 L (1.0-4.8) k/uL Monocytes # 1.3 H (0-1.0) k/uL ABG pCO2 32 L (35-45) mmHg ABG O2 Saturation 98.0 H (94-97) % Potassium (3.5-5.1) mmol/L Chloride (98-107) mmol/L BUN (9-20) mg/dL Creatinine (0.66-1.25) mg/dL Glucose (74-99) mg/dL POC Glucose (mg/dL) 136 H (75-99) mg/dL Calcium (8.4-10.2) mg/dL 03/26/19 03/26/19 03/26/19 Range/Units 08:13 11:29 12:39 WBC (3.8-10.6) k/uL RBC (4.30-5.90) m/uL Hgb (13.0-17.5) gm/dL Hct (39.0-53.0) % Neutrophils # (1.3-7.7) k/uL Lymphocytes # (1.0-4.8) k/uL Monocytes # (0-1.0) k/uL ABG pCO2 (35-45) mmHg ABG O2 Saturation (94-97) % Potassium (3.5-5.1) mmol/L Chloride (98-107) mmol/L BUN (9-20) mg/dL Creatinine (0.66-1.25) mg/dL Glucose (74-99) mg/dL POC Glucose (mg/dL) 102 H 216 H 224 H (75-99) mg/dL Calcium (8.4-10.2) mg/dL
[2019-03-26 13:18] LABS: Glucose,Whole Blood 225 mg/dL (75-99)
--- NOTE | 2019-03-26 13:52 | P.PN ---
Subjective Progress Note Date: 03/26/19 Principal diagnosis: acute hypoxic respiratory failure, multifactorial on 03/24/2019 the patient is postop day #3. The patient underwent bowel resection for an acute ischemic bowel and the patient underwent small bowel resection, ileal resection, jejunal resection with diverting jejunostomy. A breeze spontaneous breathing trial was given to him yesterday. The patient feels he became tachypneic and tachycardic and restless. This was aborted. The same will be done today. I feel that he is essentially stable. He remains on a mechanical ventilator on assist control mode at the rate of 12 with a tidal volume of 500 and FiO2 of 40% with a PEEP of 5. Chest x-ray showing pulmonary vascular congestion/small effusion the lungs left more than right. ET tube is in a good location. He is a left IJ triple lumen catheter in place. The patient was given a dose of Lasix yesterday. He did produce some urine output. His creatinine is down to 1.8. The neck fluid balance is +600 mL over the past 24 hours. The creatinine is improving. He is on and off in atrial fibrillati on. After being taken off the amiodarone drip, he was placed on oral amiodarone and this morning is back into atrial fibrillation with a controlled rate. His heart rate goes sometimes in the low 100s. The patient was seen by cardiology. Metoprolol was added. His amiodarone dose was also increased up to 200 mg 3 times a day. He is on IV heparin. He is on norepinephrine infusion which is running at a low backup rate of 0.09 g per KG per minute. He is receiving TPN for nutritional support. He is afebrile for now. All of the cultures of been negative thus far..Note that the patient has COPD,, his FEV1 is normal to 52% of predicted, he has history of diabetes and history of bladder cancer and he has history of stage III kidney disease with polycystic kidney disease disorder. Reevaluated today on 03/25/2019, patient remains on mechanical ventilation, intubated, sedated, ventilator settings are assist control rate of 12, tidal volume is 500 FiO2 40% PEEP of 5. Patient remains on insulin drip, norepinephrine drip at 0.07 mcg/kg/m, remains on propofol which I have discontinued, he is on heparin drip and on TPN. Patient is postoperative day #4. Chest x-ray showed minimal hazy densities at the bases, most likely atelectasis and possibly a small pleural effusion noted. Labs showed the PEEP cigar 20.8 hemoglobin 8.9 ABG showed a pO2 of 98 pCO2 of 40 pH of 7.40. Renal functioning is about the same, creatinine is 1.86. Patient remains on TPN. Patient is not responsive to any stimuli, hence I have discontinued his propofol, and I have switched him to a pressure support and CPAP with a pressure support of 12, previous trial of weaning have failed by Dr. Aguiar, patient developed significant tachypnea and tachycardia with CPAP, however I will try adding pressure support of 12, and we will closely monitor for potential extubation if his mental status improves. Reevaluated today on 03/26/2019, patient remains in the intensive care unit, on mechanical ventilation. Tidal volume is 500 assist control rate of 12 FiO2 is 40% and PEEP is 5. Remains on levo fed at 0.05 mcg/kg/m, still requiring propofol, insulin drip, and he is on heparin drip. Mental status is extremely poor, patient has been off propofol now for the last 2 hours, and does not seem to be waking up to follow any instructions at this point yet. Yesterday he was off sedation for 4 hours, and he was getting extremely agitated, had to be placed back on assist control mode of mechanical ventilation, and placed back on sedation. We plan to continue to do so today. Family is at bedside, however I'm a bit concerned about his mental status, even off sedation the patient does not seem to respond to any stimuli including deep painful stimuli. I would recommend a CT of the brain, I would also recommend a neurological consultation on this patient.labs today werelabs today were all reviewed.WBC count is 19.9 hemoglobin is 8.5. ABG showed a pO2 of 102 pCO2 of 32 pH of 7.45.renal profile is a bit improving BUN is 66 creatinine is 1.85. Family is at bedside, and updated on his condition. CT of the brain showed cerebral atrophy, age-related, chronic small vessel ischemia, difficult to rule out subacute ischemia. His basal ganglia showed asymmetry, hence MRI was recommended by the radiologist. Will leave that decision to the neurologist whom I will consult today.chest x- ray showed overall stable findings, chronic emphysematous changes, small pleural effusions, and minimal bibasilar atelectasis. Objective - Vital Signs Vital signs: Vital Signs Temp 97.7 F 03/26/19 12:01 Pulse 78 03/26/19 13:00 Resp 22 03/26/19 13:00 BP 134/59 03/26/19 13:00 Pulse Ox 94 L 03/26/19 13:00 Intake & Output 03/25/19 03/26/19 03/26/19 18:59 06:59 18:59 Intake Total 2775.222 2420.907 728.537 Output Total 1530 1435 1360 Balance 1245.222 985.907 -631.463 Weight 75.4 kg 82 kg 82 kg Intake: IV 1336 1336 661 .9 240 240 80 Piperacillin-Tazobactam 3 100 100 .375 gm In Sodium Chloride 0.9% 100 ml @ 25 mls/hr IVPB Q8H [facility] Rx#: [id number] TPN 996 996 581 Intake, IV Titration 4168.906 7486.907 67.537 Amount Heparin Sod,Pork in 0.45% 0 NaCl 25,000 unit In 0.45 % NaCl 1 250ml.bag @ 12 UNITS/KG/HR 8.712 mls/hr IV .Q24H [facility] Rx#: [id number] Insulin Regular 100 unit 71.222 63.907 45.897 In Sodium Chloride 0.9% 100 ml @ Per Protocol IV .Q0M [facility] Rx#:[id number] Mvi, Adult No.4 with Vit 1021 K 10 ml Trace (Conc-1Ml/ Dose) 1 ml Potassium Chloride 20 meq In Amino Acid 4.25%-D10w+Lytes*E* 1,000 ml @ 83 mls/hr IV . BY DURATION [facility] Rx#: [id number] Norepinephrine 8 mg In 258.000 Sodium Chloride 0.9% 250 ml @ 0.05 MCG/KG/MIN 7.44 mls/hr IV .Q24H [facility] Rx#: [id number] Potassium Chloride 20 meq 1010 In Amino Acid 4.25%-D10w +Lytes*E* 1,000 ml @ 83 mls/hr IV .BY DURATION [facility] Rx#:[id number] Propofol 1,000 mg In 100.000 21.64 Empty Bag 1 bag @ Titrate IV .Q0M [facility] Rx#: [id number] Output: Gastric Drainage 150 Urine 930 1435 560 Stool 450 800 Other: Voiding Method Indwelling Catheter Indwelling Catheter Indwelling Catheter ABP, PAP, CO, CI - Last Documented Arterial Blood Pressure 126/40 - Exam Physical Exam: Revealed a 73-year-old white male intubated on mechanical ventilation, not responding to any stimuli, even off propofol drip Head: Atraumatic, normocephalic. Endotracheal tube and orogastric tube are intact. HEENT:[Neck is supple.] [No neck masses.] [No thyromegaly.] [No JVD.] PERRLA, EOMI, no icterus. Chest: [Symmetrical chest expansion, crackles at the bases bilaterally. Some wheezing. Cardiac Exam: [Normal S1 and S2, no S3 gallop, no murmur.] Abdomen: [ reveals absent absent bowel sounds, jejunostomy site is viable and there is some liquidy material collecting in the back. The patient also has a mid abdominal incision which is dry clean and intact at this point in time.. Extremities: [No clubbing, no edema, no cyanosis.] Neurological Exam: obtunded, not responding to any painful or verbal stimuli. Pupils equally reactive to light and accommodation. Psychiatric: Cannot be obtained. Skin: No rashes. - Labs CBC & Chem 7: 03/26/19 05:30 03/26/19 05:30 Labs: Abnormal Lab Results - Last 24 Hours (Table) 03/25/19 03/25/19 03/25/19 Range/Units 13:45 15:50 17:03 WBC (3.8-10.6) k/uL RBC (4.30-5.90) m/uL Hgb (13.0-17.5) gm/dL Hct (39.0-53.0) % Neutrophils # (1.3-7.7) k/uL Lymphocytes # (1.0-4.8) k/uL Monocytes # (0-1.0) k/uL APTT (22.0-30.0) sec ABG pCO2 (35-45) mmHg ABG O2 Saturation (94-97) % Potassium (3.5-5.1) mmol/L Chloride (98-107) mmol/L BUN (9-20) mg/dL Creatinine (0.66-1.25) mg/dL Glucose (74-99) mg/dL POC Glucose (mg/dL) 141 H 111 H 142 H (75-99) mg/dL Calcium (8.4-10.2) mg/dL 03/25/19 03/25/19 03/25/19 Range/Units 18:12 19:04 21:05 WBC (3.8-10.6) k/uL RBC (4.30-5.90) m/uL Hgb (13.0-17.5) gm/dL Hct (39.0-53.0) % Neutrophils # (1.3-7.7) k/uL Lymphocytes # (1.0-4.8) k/uL Monocytes # (0-1.0) k/uL APTT (22.0-30.0) sec ABG pCO2 (35-45) mmHg ABG O2 Saturation (94-97) % Potassium (3.5-5.1) mmol/L Chloride (98-107) mmol/L BUN (9-20) mg/dL Creatinine (0.66-1.25) mg/dL Glucose (74-99) mg/dL POC Glucose (mg/dL) 169 H 188 H 160 H (75-99) mg/dL Calcium (8.4-10.2) mg/dL 03/26/19 03/26/19 03/26/19 Range/Units 00:10 01:02 02:12 WBC (3.8-10.6) k/uL RBC (4.30-5.90) m/uL Hgb (13.0-17.5) gm/dL Hct (39.0-53.0) % Neutrophils # (1.3-7.7) k/uL Lymphocytes # (1.0-4.8) k/uL Monocytes # (0-1.0) k/uL APTT (22.0-30.0) sec ABG pCO2 (35-45) mmHg ABG O2 Saturation (94-97) % Potassium (3.5-5.1) mmol/L Chloride (98-107) mmol/L BUN (9-20) mg/dL Creatinine (0.66-1.25) mg/dL Glucose (74-99) mg/dL POC Glucose (mg/dL) 127 H 144 H 143 H (75-99) mg/dL Calcium (8.4-10.2) mg/dL 03/26/19 03/26/19 03/26/19 Range/Units 03:10 04:59 05:30 WBC (3.8-10.6) k/uL RBC (4.30-5.90) m/uL Hgb (13.0-17.5) gm/dL Hct (39.0-53.0) % Neutrophils # (1.3-7.7) k/uL Lymphocytes # (1.0-4.8) k/uL Monocytes # (0-1.0) k/uL APTT (22.0-30.0) sec ABG pCO2 (35-45) mmHg ABG O2 Saturation (94-97) % Potassium 5.2 H (3.5-5.1) mmol/L Chloride 109 H (98-107) mmol/L BUN 66 H (9-20) mg/dL Creatinine 1.85 H (0.66-1.25) mg/dL Glucose 128 H (74-99) mg/dL POC Glucose (mg/dL) 142 H 135 H (75-99) mg/dL Calcium 7.9 L (8.4-10.2) mg/dL 03/26/19 03/26/19 03/26/19 Range/Units 05:30 05:59 07:55 WBC 19.9 H (3.8-10.6) k/uL RBC 3.11 L (4.30-5.90) m/uL Hgb 8.5 L (13.0-17.5) gm/dL Hct 27.4 L (39.0-53.0) % Neutrophils # 17.7 H (1.3-7.7) k/uL Lymphocytes # 0.5 L (1.0-4.8) k/uL Monocytes # 1.3 H (0-1.0) k/uL APTT (22.0-30.0) sec ABG pCO2 32 L (35-45) mmHg ABG O2 Saturation 98.0 H (94-97) % Potassium (3.5-5.1) mmol/L Chloride (98-107) mmol/L BUN (9-20) mg/dL Creatinine (0.66-1.25) mg/dL Glucose (74-99) mg/dL POC Glucose (mg/dL) 136 H (75-99) mg/dL Calcium (8.4-10.2) mg/dL 03/26/19 03/26/19 03/26/19 Range/Units 08:13 11:29 12:39 WBC (3.8-10.6) k/uL RBC (4.30-5.90) m/uL Hgb (13.0-17.5) gm/dL Hct (39.0-53.0) % Neutrophils # (1.3-7.7) k/uL Lymphocytes # (1.0-4.8) k/uL Monocytes # (0-1.0) k/uL APTT (22.0-30.0) sec ABG pCO2 (35-45) mmHg ABG O2 Saturation (94-97) % Potassium (3.5-5.1) mmol/L Chloride (98-107) mmol/L BUN (9-20) mg/dL Creatinine (0.66-1.25) mg/dL Glucose (74-99) mg/dL POC Glucose (mg/dL) 102 H 216 H 224 H (75-99) mg/dL Calcium (8.4-10.2) mg/dL 03/26/19 03/26/19 Range/Units 13:07 13:10 WBC (3.8-10.6) k/uL RBC (4.30-5.90) m/uL Hgb (13.0-17.5) gm/dL Hct (39.0-53.0) % Neutrophils # (1.3-7.7) k/uL Lymphocytes # (1.0-4.8) k/uL Monocytes # (0-1.0) k/uL APTT 54.5 H (22.0-30.0) sec ABG pCO2 (35-45) mmHg ABG O2 Saturation (94-97) % Potassium (3.5-5.1) mmol/L Chloride (98-107) mmol/L BUN (9-20) mg/dL Creatinine (0.66-1.25) mg/dL Glucose (74-99) mg/dL POC Glucose (mg/dL) 225 H (75-99) mg/dL Calcium (8.4-10.2) mg/dL Assessment and Plan Assessment: Impression: Severe multivessel coronary artery disease, post non-ST elevation myocardial infarction. Patient was being considered for surgery, however considering his ischemic bowel issue that is presently on hold. Ischemic cardiomyopathy and LV dysfunction ejection fraction of 35%. Severe pulmonary hypertension Moderate severe mitral regurgitation Acute ischemic small bowel requiring exploratory laparotomy, and ileal/a jejunostomy resection and diverting jejunostomy. Postoperative day #4. Type 2 diabetes, currently on insulin as per protocol. Hyperlipidemia. Polycystic kidney disease. Chronic obstructive pulmonary disease and chronic smoking history. Chronic stage III kidney failure with acute on chronic kidney disease, improving but not resolved Benign essential hypertension. Severe pulmonary hypertension and moderate to severe mitral regurgitation postoperative hypoxic respiratory failure, multifactorial, secondary to ischemic cardiomyopathy, LV dysfunction, severe pulmonary hypertension, underlying COPD, and moderate to severe mitral regurgitation. This is not expected. Recommendation: Continue ventilatory support, and adjust ventilator settings accordingly on a daily basis. continue to hold propofol, and assess mental status. CT of the brain was reviewed, and neurological consultation is pending. Continue empiric antibiotics. Continue diuretics as needed. Continue cardiac meds as per cardiology. Continue to monitor renal status. Continue daily chest x-rays. Continue TPN. Continue GI and DVT prophylaxis. We will continue to follow. family at bedside was updated on his condition, prognosis remains extremely poor and guarded. We'll continue to follow. Critical care time is 35 minutes. Time with Patient: Greater than 30
[2019-03-26 14:05] LABS: Glucose,Whole Blood 212 mg/dL (75-99)
[2019-03-26] MEDS: HEPARIN SOD,PORK IN 0.45% NACL 25,000 UNIT in 0.45% NACL 1 250ML.BAG IV SCH (14:55)
[2019-03-26] MEDS: NOREPINEPHRINE 8 MG in SODIUM CHLORIDE 0.9% 250 ML IV SCH (14:55)
[2019-03-26 15:02] LABS: Glucose,Whole Blood 179 mg/dL (75-99)
--- NOTE | 2019-03-26 15:06 | P.PN ---
Subjective Patient is status post laparotomy for a small wall ischemia consider necrosis. The patient the surgical risk is very high as it wasn't emergent surgery patient underwent surgery and patient is presently intubated patient in shock broad- spectrum antibiotics patient on propofol and norepinephrine. Patient was having a low-grade temperatures and patient is presently receiving TPN for nutritional support. Patient has colostomy as well patient has a major three-vessel disease and patient was in A. fib patient of the proximal A. fib presently on amiodarone wasn't is sinus rhythm was sinus tachycardia. Does have history of chronic kidney disease stage III from polycystic kidney 03/23/2019 No significant change in clinical condition patient remains on norepinephrine remains intubated. Patient urine output is good patient remains on normal saline at 100 mL per hour. 03/24/2019 Patient is bit more awake today weaning of sedation although patient did undergo spontaneous breathing trial yet today. Patient is still on norepinephrine, IV h eparin, IV normal saline which is cut down to 20 mL now patient actually received Lasix with the good urine output. 03/25/2019 Patient is norepinephrine is being weaned off, patient is presently receiving IV Lasix patient has small left pleural effusion creatinine although improved to 1.86 sedation is being discontinued and patient will undergo weaning trial. 03/26/2019 patient's propofol was discontinued in spite of which the patient is not responding as expected by the science intern because of which patient underwent CAT scan of the head. CAT scan didn't show any intracranial bleed but sed rate cannot rule out subacute ischemia and recommended an MRI and neurology was subsequently consulted. Patient is still on norepinephrine, heparin drip and insulin drip. Not sure patient will need to continue the antibiotics will discuss with infectious disease Review of systems: Unable to obtain due to his clinical condition All inpatient medications were reviewed and appropriate changes in these medications as dictated in the interval history and assessment and plan. Objective - Vital Signs Vital signs: Vital Signs Temp 97.7 F 03/26/19 12:01 Pulse 86 03/26/19 15:00 Resp 21 03/26/19 15:00 BP 134/59 03/26/19 13:00 Pulse Ox 96 03/26/19 15:00 Intake & Output 03/25/19 03/26/19 03/26/19 18:59 06:59 18:59 Intake Total 2775.222 2420.907 879.444 Output Total 1530 1435 1360 Balance 1245.222 985.907 -480.556 Weight 75.4 kg 82 kg 82 kg Intake: IV 1336 1336 661 .9 240 240 80 Piperacillin-Tazobactam 3 100 100 .375 gm In Sodium Chloride 0.9% 100 ml @ 25 mls/hr IVPB Q8H [facility] Rx#: [id number] TPN 996 996 581 Intake, IV Titration 2378.228 5546.907 218.444 Amount Heparin Sod,Pork in 0.45% 0 130.353 NaCl 25,000 unit In 0.45 % NaCl 1 250ml.bag @ 12 UNITS/KG/HR 8.712 mls/hr IV .Q24H [facility] Rx#: [id number] Insulin Regular 100 unit 71.222 63.907 66.451 In Sodium Chloride 0.9% 100 ml @ Per Protocol IV .Q0M [facility] Rx#:[id number] Mvi, Adult No.4 with Vit 1021 K 10 ml Trace (Conc-1Ml/ Dose) 1 ml Potassium Chloride 20 meq In Amino Acid 4.25%-D10w+Lytes*E* 1,000 ml @ 83 mls/hr IV . BY DURATION [facility] Rx#: [id number] Norepinephrine 8 mg In 258.000 Sodium Chloride 0.9% 250 ml @ 0.05 MCG/KG/MIN 7.44 mls/hr IV .Q24H [facility] Rx#: [id number] Potassium Chloride 20 meq 1010 In Amino Acid 4.25%-D10w +Lytes*E* 1,000 ml @ 83 mls/hr IV .BY DURATION [facility] Rx#:[id number] Propofol 1,000 mg In 100.000 21.64 Empty Bag 1 bag @ Titrate IV .Q0M [facility] Rx#: [id number] Output: Gastric Drainage 150 Urine 930 1435 560 Stool 450 800 Other: Voiding Method Indwelling Catheter Indwelling Catheter Indwelling Catheter ABP, PAP, CO, CI - Last Documented Arterial Blood Pressure 121/41 - Exam PHYSICAL EXAMINATION: GENERAL: Intubated sedated, fully catheter in place HEENT: Pupils are round and equally reacting to light. EOMI. No scleral icterus. No conjunctival pallor. Normocephalic, atraumatic. No pharyngeal erythema. No thyromegaly. CARDIOVASCULAR: S1 and S2 present. No murmurs, rubs, or gallops. Tachycardic PULMONARY: Bilateral expiratory wheezing was appreciated ABDOMEN: Bowel sounds are absent jejunostomy tube in place MUSCULOSKELETAL: No joint swelling or deformity. EXTREMITIES: No cyanosis, clubbing, or pedal edema. NEUROLOGICAL: Gross neurological examination did not reveal any focal deficits. SKIN: No rashes. - Labs CBC & Chem 7: 03/26/19 05:30 03/26/19 05:30 Labs: Abnormal Lab Results - Last 24 Hours (Table) 03/25/19 03/25/19 03/25/19 Range/Units 15:50 17:03 18:12 WBC (3.8-10.6) k/uL RBC (4.30-5.90) m/uL Hgb (13.0-17.5) gm/dL Hct (39.0-53.0) % Neutrophils # (1.3-7.7) k/uL Lymphocytes # (1.0-4.8) k/uL Monocytes # (0-1.0) k/uL APTT (22.0-30.0) sec ABG pCO2 (35-45) mmHg ABG O2 Saturation (94-97) % Potassium (3.5-5.1) mmol/L Chloride (98-107) mmol/L BUN (9-20) mg/dL Creatinine (0.66-1.25) mg/dL Glucose (74-99) mg/dL POC Glucose (mg/dL) 111 H 142 H 169 H (75-99) mg/dL Calcium (8.4-10.2) mg/dL 03/25/19 03/25/19 03/26/19 Range/Units 19:04 21:05 00:10 WBC (3.8-10.6) k/uL RBC (4.30-5.90) m/uL Hgb (13.0-17.5) gm/dL Hct (39.0-53.0) % Neutrophils # (1.3-7.7) k/uL Lymphocytes # (1.0-4.8) k/uL Monocytes # (0-1.0) k/uL APTT (22.0-30.0) sec ABG pCO2 (35-45) mmHg ABG O2 Saturation (94-97) % Potassium (3.5-5.1) mmol/L Chloride (98-107) mmol/L BUN (9-20) mg/dL Creatinine (0.66-1.25) mg/dL Glucose (74-99) mg/dL POC Glucose (mg/dL) 188 H 160 H 127 H (75-99) mg/dL Calcium (8.4-10.2) mg/dL 03/26/19 03/26/19 03/26/19 Range/Units 01:02 02:12 03:10 WBC (3.8-10.6) k/uL RBC (4.30-5.90) m/uL Hgb (13.0-17.5) gm/dL Hct (39.0-53.0) % Neutrophils # (1.3-7.7) k/uL Lymphocytes # (1.0-4.8) k/uL Monocytes # (0-1.0) k/uL APTT (22.0-30.0) sec ABG pCO2 (35-45) mmHg ABG O2 Saturation (94-97) % Potassium (3.5-5.1) mmol/L Chloride (98-107) mmol/L BUN (9-20) mg/dL Creatinine (0.66-1.25) mg/dL Glucose (74-99) mg/dL POC Glucose (mg/dL) 144 H 143 H 142 H (75-99) mg/dL Calcium (8.4-10.2) mg/dL 03/26/19 03/26/19 03/26/19 Range/Units 04:59 05:30 05:30 WBC 19.9 H (3.8-10.6) k/uL RBC 3.11 L (4.30-5.90) m/uL Hgb 8.5 L (13.0-17.5) gm/dL Hct 27.4 L (39.0-53.0) % Neutrophils # 17.7 H (1.3-7.7) k/uL Lymphocytes # 0.5 L (1.0-4.8) k/uL Monocytes # 1.3 H (0-1.0) k/uL APTT (22.0-30.0) sec ABG pCO2 (35-45) mmHg ABG O2 Saturation (94-97) % Potassium 5.2 H (3.5-5.1) mmol/L Chloride 109 H (98-107) mmol/L BUN 66 H (9-20) mg/dL Creatinine 1.85 H (0.66-1.25) mg/dL Glucose 128 H (74-99) mg/dL POC Glucose (mg/dL) 135 H (75-99) mg/dL Calcium 7.9 L (8.4-10.2) mg/dL 03/26/19 03/26/19 03/26/19 Range/Units 05:59 07:55 08:13 WBC (3.8-10.6) k/uL RBC (4.30-5.90) m/uL Hgb (13.0-17.5) gm/dL Hct (39.0-53.0) % Neutrophils # (1.3-7.7) k/uL Lymphocytes # (1.0-4.8) k/uL Monocytes # (0-1.0) k/uL APTT (22.0-30.0) sec ABG pCO2 32 L (35-45) mmHg ABG O2 Saturation 98.0 H (94-97) % Potassium (3.5-5.1) mmol/L Chloride (98-107) mmol/L BUN (9-20) mg/dL Creatinine (0.66-1.25) mg/dL Glucose (74-99) mg/dL POC Glucose (mg/dL) 136 H 102 H (75-99) mg/dL Calcium (8.4-10.2) mg/dL 03/26/19 03/26/19 03/26/19 Range/Units 11:29 12:39 13:07 WBC (3.8-10.6) k/uL RBC (4.30-5.90) m/uL Hgb (13.0-17.5) gm/dL Hct (39.0-53.0) % Neutrophils # (1.3-7.7) k/uL Lymphocytes # (1.0-4.8) k/uL Monocytes # (0-1.0) k/uL APTT (22.0-30.0) sec ABG pCO2 (35-45) mmHg ABG O2 Saturation (94-97) % Potassium (3.5-5.1) mmol/L Chloride (98-107) mmol/L BUN (9-20) mg/dL Creatinine (0.66-1.25) mg/dL Glucose (74-99) mg/dL POC Glucose (mg/dL) 216 H 224 H 225 H (75-99) mg/dL Calcium (8.4-10.2) mg/dL 03/26/19 03/26/19 03/26/19 Range/Units 13:10 14:04 15:00 WBC (3.8-10.6) k/uL RBC (4.30-5.90) m/uL Hgb (13.0-17.5) gm/dL Hct (39.0-53.0) % Neutrophils # (1.3-7.7) k/uL Lymphocytes # (1.0-4.8) k/uL Monocytes # (0-1.0) k/uL APTT 54.5 H (22.0-30.0) sec ABG pCO2 (35-45) mmHg ABG O2 Saturation (94-97) % Potassium (3.5-5.1) mmol/L Chloride (98-107) mmol/L BUN (9-20) mg/dL Creatinine (0.66-1.25) mg/dL Glucose (74-99) mg/dL POC Glucose (mg/dL) 212 H 179 H (75-99) mg/dL Calcium (8.4-10.2) mg/dL Assessment and Plan Plan: Septic shock patient is on pressor support and the sepsis secondary to ischemic bowel. Patient is status post laparotomy and is on Zosyn. Patient is still requiring pressors CAT scan of the head is concerning for subacute hematoma because of which neurology is being consulted -Coronary artery disease severe multivessel 33 vessel disease patient had dyspnea for 40-45% with mitral regurgitation, patient is bit volume overloaded receiving Lasix at this time IV fluids were cut down to 20 mL per hour patient is on antiplatelet statin for this -Proximal A. fib presently sinus rhythm with PVCs and patient is on amiodarone oral which will be continued -Ventilator dependent respiratory failure secondary to sepsis management as per pulmonology -Severe pulmonary hypertension -Hyperlipidemia -Type 2 diabetes mellitus continue with present regimen depending on his sliding scale requirements with titrate the insulin regimen -Chronic kidney disease stage III with some acute kidney injury from sepsis and acute tubular necrosis chronic kidney disease secondary to diabetic nephropathy Acute renal failure: Secondary to acute tubular necrosis and prerenal azotemia which is improving -COPD with acute exacerbation -Polycystic kidney disease -Hypertension patient is presently hypotensive and is in shock -History of bladder cancer with TURP in the past Patient's overall prognosis is poor his clinical condition is guarded now
[2019-03-26 17:07] LABS: Glucose,Whole Blood 137 mg/dL (75-99)
--- NOTE | 2019-03-26 18:27 | P.PN ---
Subjective Progress Note Date: 03/26/19 This 73-year-old gentleman is is still intubated. Attempt to extubate him yesterday resultant tachypnea and tachycardia. Another weaning trial will be done today. He is in paroxysmal atrial fibrillation. I'm going to initiate him on beta luisa along with increasing the dose of the Po amiodarone. Patient has received Lasix and had some urine output yesterday. His creatinine is 1.8. Continue the rest of the medication. 03/25/2019: This is 73 old gentleman was admitted after cardiac catheterization for hydration. 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 Subsequently, patient developed findings consistent CHF and non-STEMI. He also developed atrial fibrillation with a rapid ventricular response. Subsequently was noted to have ischemic bowel and had surgery done. Patient seemed to be Hemodynamically stable at this time. His weaning attempts resultant tachypnea and tachycardia. Patient's adrenal function symptomatically improving. Creatinine is 1.8. The chest x-ray also shows improvement. CBC shows elevated white count. Could be related to steroids. We'll continue current medical therapy. Another attempt will be made to wean him off the respirator. 03/26/2019: This patient is still in intensive care unit intubated and sedated. Apparently there is concerned about her neurological status. He will not stopping the sedation for 2 hours, patient remained unresponsive. Computed tomography scan showed cerebral atrophy. MRI scan is being recommended. Neurology consult is pending. Patient is maintaining sinus rhythm on amiodarone. Overall his prognosis seems to be guarded. We'll continue current medical therapy. Pulmonology has updated the patient's family Objective - Vital Signs Vital signs: Vital Signs Temp 98.1 F 03/26/19 16:00 Pulse 86 03/26/19 17:00 Resp 20 03/26/19 17:00 BP 134/59 03/26/19 13:00 Pulse Ox 97 03/26/19 17:00 Intake & Output 03/25/19 03/26/19 03/26/19 18:59 06:59 18:59 Intake Total 2775.222 2420.907 1286.472 Output Total 1530 1435 1610 Balance 1245.222 985.907 -323.528 Weight 75.4 kg 82 kg 82 kg Intake: IV 1336 1336 1050 .9 240 240 110 Piperacillin-Tazobactam 3 100 100 100 .375 gm In Sodium Chloride 0.9% 100 ml @ 25 mls/hr IVPB Q8H [facility] Rx#: [id number] TPN 996 996 840 Intake, IV Titration 0484.330 4237.907 236.472 Amount Heparin Sod,Pork in 0.45% 0 130.353 NaCl 25,000 unit In 0.45 % NaCl 1 250ml.bag @ 12 UNITS/KG/HR 8.712 mls/hr IV .Q24H [facility] Rx#: [id number] Insulin Regular 100 unit 71.222 63.907 84.479 In Sodium Chloride 0.9% 100 ml @ Per Protocol IV .Q0M [facility] Rx#:[id number] Mvi, Adult No.4 with Vit 1021 K 10 ml Trace (Conc-1Ml/ Dose) 1 ml Potassium Chloride 20 meq In Amino Acid 4.25%-D10w+Lytes*E* 1,000 ml @ 83 mls/hr IV . BY DURATION [facility] Rx#: [id number] Norepinephrine 8 mg In 258.000 Sodium Chloride 0.9% 250 ml @ 0.05 MCG/KG/MIN 7.44 mls/hr IV .Q24H [facility] Rx#: [id number] Potassium Chloride 20 meq 1010 In Amino Acid 4.25%-D10w +Lytes*E* 1,000 ml @ 83 mls/hr IV .BY DURATION [facility] Rx#:[id number] Propofol 1,000 mg In 100.000 21.64 Empty Bag 1 bag @ Titrate IV .Q0M [facility] Rx#: [id number] Output: Gastric Drainage 150 Urine 930 1435 810 Stool 450 800 Other: Voiding Method Indwelling Catheter Indwelling Catheter Indwelling Catheter ABP, PAP, CO, CI - Last Documented Arterial Blood Pressure 125/45 - Exam GENERAL EXAM: Patient is intubated HEENT: Normocephalic. Normal reaction of pupils, equal size, normal range of extraocular motion. No erythema or exudates in the throat. NECK: No masses, no nuchal rigidity. CHEST: No chest wall deformity. LUNGS: Diminished breath sounds at bases HEART: S1 and S2 normal. Irregular heart rhythm ABDOMEN: No hepatosplenomegaly, normal bowel sounds, no guarding or rigidity. SKIN: No rashes CENTRAL NERVOUS SYSTEM: Not assessed EXTREMITIES: No cyanosis, clubbing or edema. - Labs CBC & Chem 7: 03/26/19 05:30 03/26/19 05:30 Labs: Abnormal Lab Results - Last 24 Hours (Table) 03/25/19 03/25/19 03/26/19 Range/Units 19:04 21:05 00:10 WBC (3.8-10.6) k/uL RBC (4.30-5.90) m/uL Hgb (13.0-17.5) gm/dL Hct (39.0-53.0) % Neutrophils # (1.3-7.7) k/uL Lymphocytes # (1.0-4.8) k/uL Monocytes # (0-1.0) k/uL APTT (22.0-30.0) sec ABG pCO2 (35-45) mmHg ABG O2 Saturation (94-97) % Potassium (3.5-5.1) mmol/L Chloride (98-107) mmol/L BUN (9-20) mg/dL Creatinine (0.66-1.25) mg/dL Glucose (74-99) mg/dL POC Glucose (mg/dL) 188 H 160 H 127 H (75-99) mg/dL Calcium (8.4-10.2) mg/dL 03/26/19 03/26/19 03/26/19 Range/Units 01:02 02:12 03:10 WBC (3.8-10.6) k/uL RBC (4.30-5.90) m/uL Hgb (13.0-17.5) gm/dL Hct (39.0-53.0) % Neutrophils # (1.3-7.7) k/uL Lymphocytes # (1.0-4.8) k/uL Monocytes # (0-1.0) k/uL APTT (22.0-30.0) sec ABG pCO2 (35-45) mmHg ABG O2 Saturation (94-97) % Potassium (3.5-5.1) mmol/L Chloride (98-107) mmol/L BUN (9-20) mg/dL Creatinine (0.66-1.25) mg/dL Glucose (74-99) mg/dL POC Glucose (mg/dL) 144 H 143 H 142 H (75-99) mg/dL Calcium (8.4-10.2) mg/dL 03/26/19 03/26/19 03/26/19 Range/Units 04:59 05:30 05:30 WBC 19.9 H (3.8-10.6) k/uL RBC 3.11 L (4.30-5.90) m/uL Hgb 8.5 L (13.0-17.5) gm/dL Hct 27.4 L (39.0-53.0) % Neutrophils # 17.7 H (1.3-7.7) k/uL Lymphocytes # 0.5 L (1.0-4.8) k/uL Monocytes # 1.3 H (0-1.0) k/uL APTT (22.0-30.0) sec ABG pCO2 (35-45) mmHg ABG O2 Saturation (94-97) % Potassium 5.2 H (3.5-5.1) mmol/L Chloride 109 H (98-107) mmol/L BUN 66 H (9-20) mg/dL Creatinine 1.85 H (0.66-1.25) mg/dL Glucose 128 H (74-99) mg/dL POC Glucose (mg/dL) 135 H (75-99) mg/dL Calcium 7.9 L (8.4-10.2) mg/dL 03/26/19 03/26/19 03/26/19 Range/Units 05:59 07:55 08:13 WBC (3.8-10.6) k/uL RBC (4.30-5.90) m/uL Hgb (13.0-17.5) gm/dL Hct (39.0-53.0) % Neutrophils # (1.3-7.7) k/uL Lymphocytes # (1.0-4.8) k/uL Monocytes # (0-1.0) k/uL APTT (22.0-30.0) sec ABG pCO2 32 L (35-45) mmHg ABG O2 Saturation 98.0 H (94-97) % Potassium (3.5-5.1) mmol/L Chloride (98-107) mmol/L BUN (9-20) mg/dL Creatinine (0.66-1.25) mg/dL Glucose (74-99) mg/dL POC Glucose (mg/dL) 136 H 102 H (75-99) mg/dL Calcium (8.4-10.2) mg/dL 03/26/19 03/26/19 03/26/19 Range/Units 11:29 12:39 13:07 WBC (3.8-10.6) k/uL RBC (4.30-5.90) m/uL Hgb (13.0-17.5) gm/dL Hct (39.0-53.0) % Neutrophils # (1.3-7.7) k/uL Lymphocytes # (1.0-4.8) k/uL Monocytes # (0-1.0) k/uL APTT (22.0-30.0) sec ABG pCO2 (35-45) mmHg ABG O2 Saturation (94-97) % Potassium (3.5-5.1) mmol/L Chloride (98-107) mmol/L BUN (9-20) mg/dL Creatinine (0.66-1.25) mg/dL Glucose (74-99) mg/dL POC Glucose (mg/dL) 216 H 224 H 225 H (75-99) mg/dL Calcium (8.4-10.2) mg/dL 03/26/19 03/26/19 03/26/19 Range/Units 13:10 14:04 15:00 WBC (3.8-10.6) k/uL RBC (4.30-5.90) m/uL Hgb (13.0-17.5) gm/dL Hct (39.0-53.0) % Neutrophils # (1.3-7.7) k/uL Lymphocytes # (1.0-4.8) k/uL Monocytes # (0-1.0) k/uL APTT 54.5 H (22.0-30.0) sec ABG pCO2 (35-45) mmHg ABG O2 Saturation (94-97) % Potassium (3.5-5.1) mmol/L Chloride (98-107) mmol/L BUN (9-20) mg/dL Creatinine (0.66-1.25) mg/dL Glucose (74-99) mg/dL POC Glucose (mg/dL) 212 H 179 H (75-99) mg/dL Calcium (8.4-10.2) mg/dL 03/26/19 Range/Units 16:56 WBC (3.8-10.6) k/uL RBC (4.30-5.90) m/uL Hgb (13.0-17.5) gm/dL Hct (39.0-53.0) % Neutrophils # (1.3-7.7) k/uL Lymphocytes # (1.0-4.8) k/uL Monocytes # (0-1.0) k/uL APTT (22.0-30.0) sec ABG pCO2 (35-45) mmHg ABG O2 Saturation (94-97) % Potassium (3.5-5.1) mmol/L Chloride (98-107) mmol/L BUN (9-20) mg/dL Creatinine (0.66-1.25) mg/dL Glucose (74-99) mg/dL POC Glucose (mg/dL) 137 H (75-99) mg/dL Calcium (8.4-10.2) mg/dL Assessment and Plan (1) Triple vessel disease of the heart Current Visit: Yes Status: Acute Code(s): I25.10 - ATHSCL HEART DISEASE OF [place] CORONARY ARTERY W/O ANG PCTRS SNOMED Code(s): 048364280 (2) Acute exacerbation of chronic obstructive airways disease Current Visit: No Status: Acute Code(s): J44.1 - CHRONIC OBSTRUCTIVE PULMONARY DISEASE W (ACUTE) EXACERBATION SNOMED Code(s): 831102557 (3) Pulmonary edema Current Visit: Yes Status: Acute Code(s): J81.1 - CHRONIC PULMONARY EDEMA SNOMED Code(s): 76960145 Plan: Patient is still intubated and sedated. There is concern regarding his mental status. Neurology consult is pending. Computed tomography scan findings are reviewed. Continue current medical therapy. He continues to be on an anti- coagulation therapy. Prognosis is guarded
[2019-03-26 18:29] LABS: Glucose,Whole Blood 146 mg/dL (75-99)
[2019-03-26 19:01] LABS: Glucose,Whole Blood 145 mg/dL (75-99)
[2019-03-26 21:15] LABS: Glucose,Whole Blood 147 mg/dL (75-99)
[2019-03-26] MEDS: SODIUM CHLORIDE 0.9% 1,000 ML IV SCH (21:16)
[2019-03-26] MEDS: 1: MVI, ADULT NO.4 WITH VIT K 10 ML, TRACE (CONC-1ML/DOSE) 1 ML in AMINO ACID 4.25%-D10W IV SCH ×3 (21:17)
[2019-03-26] MEDS: ATORVASTATIN 80 MG TAB PO SCH (21:18)
[2019-03-26 22:52] LABS: Glucose,Whole Blood 128 mg/dL (75-99)
[2019-03-27 00:40] LABS: Glucose,Whole Blood 147 mg/dL (75-99)
[2019-03-27] MEDS: INSULIN REGULAR 100 UNIT in SODIUM CHLORIDE 0.9% 100 ML IV SCH ×3 (02:59→19:47)
[2019-03-27 03:00] LABS: Glucose,Whole Blood 202 mg/dL (75-99)
[2019-03-27] MEDS: PROPOFOL 1,000 MG in EMPTY BAG 1 BAG IV SCH ×4 (03:01→17:26)
[2019-03-27 04:47] LABS: HCT 24.3 % (39.0-53.0); HGB 7.9 gm/dL (13.0-17.5); MCH 27.9 pg (25.0-35.0); MCHC 32.7 g/dL (31.0-37.0); MCV 85.3 fL (80.0-100.0); Mean Platelet Volume 9.8; Platelet Count 292 k/uL (150-450); RBC 2.85 m/uL (4.30-5.90); RDW 15.1 % (11.5-15.5); WBC 21.5 k/uL (3.8-10.6)
[2019-03-27 05:15] LABS: Glucose,Whole Blood 211 mg/dL (75-99)
[2019-03-27 05:28] LABS: Calcium 7.8 mg/dL (8.4-10.2); Magnesium 2.3 mg/dL (1.6-2.3); Phosphorus 4.9 mg/dL (2.5-4.5); Potassium 5.5 mmol/L (3.5-5.1)
[2019-03-27] MEDS: HEPARIN SOD,PORK IN 0.45% NACL 25,000 UNIT in 0.45% NACL 1 250ML.BAG IV SCH ×3 (05:30→20:59)
[2019-03-27 06:22] LABS: Glucose,Whole Blood 207 mg/dL (75-99)
[2019-03-27 06:51] LABS: Glucose,Whole Blood 228 mg/dL (75-99)
--- NOTE | 2019-03-27 07:27 | XR ---
EXAMINATION TYPE: XR chest 1V portable DATE OF EXAM: 03/27/2019 COMPARISON: 03/26/2019 HISTORY: SOB, Follow Up FINDINGS: Indwelling tubes and catheters are unchanged. Basilar infiltrates with pleural effusions and cardiomegaly remain stable. Small effusions persist as well as increasing pulmonary venous congestion. Stable appearance of the cardio-mediastinal structures at this time. IMPRESSION: 1. Basilar infiltrates with pleural effusions and cardiomegaly remain stable. Small effusions persis t as well as increasing pulmonary venous congestion.
[2019-03-27 07:55] LABS: Glucose,Whole Blood 180 mg/dL (75-99)
[2019-03-27] MEDS: IPRATROPIUM-ALBUTEROL 3 ML NEB INHALATION SCH ×4 (07:55→19:15)
[2019-03-27 07:59] LABS: ABG HCO3 20 mmol/L (21-25); ABG Oxygen Saturation 94.8 % (94-97); ABG PCO2 29 mmHg (35-45); ABG PH 7.45 (7.35-7.45); ABG PO2 73 mmHg (83-108); ABG TCO2 21 mmol/L (19-24)
[2019-03-27] MEDS: PANTOPRAZOLE 40 MG/10 ML VIAL IVP SCH (08:09)
[2019-03-27] MEDS: HYDROmorphone 1 MG/ML 1 ML SYRINGE IVP PRN ×2 (08:09→20:49)
[2019-03-27] MEDS: FENOFIBRATE 160 MG TAB PO SCH (08:09)
[2019-03-27] MEDS: AMIODARONE 200 MG TAB PO SCH ×3 (08:09→20:48)
[2019-03-27] MEDS: METOPROLOL TARTRATE 12.5 MG TAB PO SCH (08:09)
[2019-03-27] MEDS: CHLORHEXIDINE GLUCONATE 15 ML CUP MUCOUS MEM SCH ×2 (08:09→20:49)
[2019-03-27] MEDS: ASPIRIN 81 MG PO SCH (08:09)
[2019-03-27] MEDS: PIPERACILLIN-TAZOBACTAM 3.375 GM in SODIUM CHLORIDE 0.9% 100 ML IVPB SCH ×3 (08:10→23:22)
[2019-03-27] MEDS ORDERED: METOPROLOL TARTRATE 12.5 MG TAB PO STA (08:49)
[2019-03-27 08:54] LABS: Glucose,Whole Blood 170 mg/dL (75-99)
[2019-03-27] MEDS ORDERED: FUROSEMIDE 10 MG/ML 4 ML VIAL IV STA (09:06)
--- NOTE | 2019-03-27 09:38 | P.PN ---
Subjective Progress Note Date: 03/27/19 This 73-year-old gentleman is is still intubated. Attempt to extubate him yesterday resultant tachypnea and tachycardia. Another weaning trial will be done today. He is in paroxysmal atrial fibrillation. I'm going to initiate him on beta luisa along with increasing the dose of the Po amiodarone. Patient has received Lasix and had some urine output yesterday. His creatinine is 1.8. Continue the rest of the medication. 03/25/2019: This is 73 old gentleman was admitted after cardiac catheterization for hydration. 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 Subsequently, patient developed findings consistent CHF and non-STEMI. He also developed atrial fibrillation with a rapid ventricular response. Subsequently was noted to have ischemic bowel and had surgery done. Patient seemed to be Hemodynamically stable at this time. His weaning attempts resultant tachypnea and tachycardia. Patient's adrenal function symptomatically improving. Creatinine is 1.8. The chest x-ray also shows improvement. CBC shows elevated white count. Could be related to steroids. We'll continue current medical therapy. Another attempt will be made to wean him off the respirator. 03/26/2019: This patient is still in intensive care unit intubated and sedated. Apparently there is concerned about her neurological status. He will not stopping the sedation for 2 hours, patient remained unresponsive. Computed tomography scan showed cerebral atrophy. MRI scan is being recommended. Neurology consult is pending. Patient is maintaining sinus rhythm on amiodarone. Overall his prognosis seems to be guarded. We'll continue current medical therapy. Pulmonology has updated the patient's family. 03/27/2019: This patient is still intubated. There is a question about is her neurological status. Neurology consult is pending. Hemodynamically patient is back in atrial fibrillation with moderately fast and corresponds. I'm going to increase the dose of the metoprolol. Patient is already on anticoagulation. Chest x-ray shows some improvement. Attempts at weaning seems to resultant t achypnea and tachycardia. Patient may need a tracheostomy. Overall prognosis is guarded Objective - Vital Signs Vital signs: Vital Signs Temp 99.6 F 03/27/19 04:00 Pulse 98 03/27/19 08:28 Resp 24 03/27/19 06:00 BP 134/59 03/26/19 13:00 Pulse Ox 96 03/27/19 06:00 Intake & Output 03/26/19 03/27/19 03/27/19 18:59 06:59 18:59 Intake Total 0942.424 7796.553 22.843 Output Total 2205 1730 Balance -898.528 -410.447 22.843 Weight 82 kg 83.5 kg Intake: IV 1070 854 .9 110 160 Piperacillin-Tazobactam 3 100 .375 gm In Sodium Chloride 0.9% 100 ml @ 25 mls/hr IVPB Q8H [facility] Rx#: [id number] TPN 860 694 Intake, IV Titration 236.472 465.553 22.843 Amount Heparin Sod,Pork in 0.45% 130.353 222.337 NaCl 25,000 unit In 0.45 % NaCl 1 250ml.bag @ 12 UNITS/KG/HR 8.712 mls/hr IV .Q24H [facility] Rx#: [id number] Insulin Regular 100 unit 84.479 65.760 22.843 In Sodium Chloride 0.9% 100 ml @ Per Protocol IV .Q0M [facility] Rx#:[id number] Norepinephrine 8 mg In 58.280 Sodium Chloride 0.9% 250 ml @ 0.05 MCG/KG/MIN 7.44 mls/hr IV .Q24H [facility] Rx#: [id number] Propofol 1,000 mg In 21.64 119.176 Empty Bag 1 bag @ Titrate IV .Q0M [facility] Rx#: [id number] Output: Urine 1055 1430 Stool 1150 300 Other: Voiding Method Indwelling Catheter Indwelling Catheter ABP, PAP, CO, CI - Last Documented Arterial Blood Pressure 148/50 - Exam GENERAL EXAM: Patient is intubated HEENT: Normocephalic. Normal reaction of pupils, equal size, normal range of extraocular motion. No erythema or exudates in the throat. NECK: No masses, no nuchal rigidity. CHEST: No chest wall deformity. LUNGS: Diminished breath sounds at bases HEART: S1 and S2 normal. Irregular heart rhythm ABDOMEN: No hepatosplenomegaly, normal bowel sounds, no guarding or rigidity. SKIN: No rashes CENTRAL NERVOUS SYSTEM: Not assessed EXTREMITIES: No cyanosis, clubbing or edema. - Labs CBC & Chem 7: 03/27/19 04:34 03/27/19 04:34 Labs: Abnormal Lab Results - Last 24 Hours (Table) 03/26/19 03/26/19 03/26/19 Range/Units 05:30 11:29 12:39 WBC 19.9 H (3.8-10.6) k/uL RBC 3.11 L (4.30-5.90) m/uL Hgb 8.5 L (13.0-17.5) gm/dL Hct 27.4 L (39.0-53.0) % Neutrophils # 17.7 H (1.3-7.7) k/uL Lymphocytes # 0.5 L (1.0-4.8) k/uL Monocytes # 1.3 H (0-1.0) k/uL APTT (22.0-30.0) sec ABG pCO2 (35-45) mmHg ABG pO2 (83-108) mmHg ABG HCO3 (21-25) mmol/L Potassium (3.5-5.1) mmol/L Chloride (98-107) mmol/L Carbon Dioxide (22-30) mmol/L BUN (9-20) mg/dL Creatinine (0.66-1.25) mg/dL Glucose (74-99) mg/dL POC Glucose (mg/dL) 216 H 224 H (75-99) mg/dL Calcium (8.4-10.2) mg/dL Phosphorus (2.5-4.5) mg/dL 03/26/19 03/26/19 03/26/19 Range/Units 13:07 13:10 14:04 WBC (3.8-10.6) k/uL RBC (4.30-5.90) m/uL Hgb (13.0-17.5) gm/dL Hct (39.0-53.0) % Neutrophils # (1.3-7.7) k/uL Lymphocytes # (1.0-4.8) k/uL Monocytes # (0-1.0) k/uL APTT 54.5 H (22.0-30.0) sec ABG pCO2 (35-45) mmHg ABG pO2 (83-108) mmHg ABG HCO3 (21-25) mmol/L Potassium (3.5-5.1) mmol/L Chloride (98-107) mmol/L Carbon Dioxide (22-30) mmol/L BUN (9-20) mg/dL Creatinine (0.66-1.25) mg/dL Glucose (74-99) mg/dL POC Glucose (mg/dL) 225 H 212 H (75-99) mg/dL Calcium (8.4-10.2) mg/dL Phosphorus (2.5-4.5) mg/dL 03/26/19 03/26/19 03/26/19 Range/Units 15:00 16:56 18:27 WBC (3.8-10.6) k/uL RBC (4.30-5.90) m/uL Hgb (13.0-17.5) gm/dL Hct (39.0-53.0) % Neutrophils # (1.3-7.7) k/uL Lymphocytes # (1.0-4.8) k/uL Monocytes # (0-1.0) k/uL APTT (22.0-30.0) sec ABG pCO2 (35-45) mmHg ABG pO2 (83-108) mmHg ABG HCO3 (21-25) mmol/L Potassium (3.5-5.1) mmol/L Chloride (98-107) mmol/L Carbon Dioxide (22-30) mmol/L BUN (9-20) mg/dL Creatinine (0.66-1.25) mg/dL Glucose (74-99) mg/dL POC Glucose (mg/dL) 179 H 137 H 146 H (75-99) mg/dL Calcium (8.4-10.2) mg/dL Phosphorus (2.5-4.5) mg/dL 03/26/19 03/26/19 03/26/19 Range/Units 18:59 21:13 22:51 WBC (3.8-10.6) k/uL RBC (4.30-5.90) m/uL Hgb (13.0-17.5) gm/dL Hct (39.0-53.0) % Neutrophils # (1.3-7.7) k/uL Lymphocytes # (1.0-4.8) k/uL Monocytes # (0-1.0) k/uL APTT (22.0-30.0) sec ABG pCO2 (35-45) mmHg ABG pO2 (83-108) mmHg ABG HCO3 (21-25) mmol/L Potassium (3.5-5.1) mmol/L Chloride (98-107) mmol/L Carbon Dioxide (22-30) mmol/L BUN (9-20) mg/dL Creatinine (0.66-1.25) mg/dL Glucose (74-99) mg/dL POC Glucose (mg/dL) 145 H 147 H 128 H (75-99) mg/dL Calcium (8.4-10.2) mg/dL Phosphorus (2.5-4.5) mg/dL 03/27/19 03/27/19 03/27/19 Range/Units 00:36 02:57 04:34 WBC (3.8-10.6) k/uL RBC (4.30-5.90) m/uL Hgb (13.0-17.5) gm/dL Hct (39.0-53.0) % Neutrophils # (1.3-7.7) k/uL Lymphocytes # (1.0-4.8) k/uL Monocytes # (0-1.0) k/uL APTT (22.0-30.0) sec ABG pCO2 (35-45) mmHg ABG pO2 (83-108) mmHg ABG HCO3 (21-25) mmol/L Potassium 5.5 H (3.5-5.1) mmol/L Chloride 110 H (98-107) mmol/L Carbon Dioxide 19 L (22-30) mmol/L BUN 70 H (9-20) mg/dL Creatinine 1.83 H (0.66-1.25) mg/dL Glucose 215 H (74-99) mg/dL POC Glucose (mg/dL) 147 H 202 H (75-99) mg/dL Calcium 7.8 L (8.4-10.2) mg/dL Phosphorus 4.9 H (2.5-4.5) mg/dL 03/27/19 03/27/19 03/27/19 Range/Units 04:34 04:34 05:14 WBC 21.5 H (3.8-10.6) k/uL RBC 2.85 L (4.30-5.90) m/uL Hgb 7.9 L (13.0-17.5) gm/dL Hct 24.3 L (39.0-53.0) % Neutrophils # (1.3-7.7) k/uL Lymphocytes # (1.0-4.8) k/uL Monocytes # (0-1.0) k/uL APTT 64.9 H (22.0-30.0) sec ABG pCO2 (35-45) mmHg ABG pO2 (83-108) mmHg ABG HCO3 (21-25) mmol/L Potassium (3.5-5.1) mmol/L Chloride (98-107) mmol/L Carbon Dioxide (22-30) mmol/L BUN (9-20) mg/dL Creatinine (0.66-1.25) mg/dL Glucose (74-99) mg/dL POC Glucose (mg/dL) 211 H (75-99) mg/dL Calcium (8.4-10.2) mg/dL Phosphorus (2.5-4.5) mg/dL 03/27/19 03/27/19 03/27/19 Range/Units 06:21 06:49 07:51 WBC (3.8-10.6) k/uL RBC (4.30-5.90) m/uL Hgb (13.0-17.5) gm/dL Hct (39.0-53.0) % Neutrophils # (1.3-7.7) k/uL Lymphocytes # (1.0-4.8) k/uL Monocytes # (0-1.0) k/uL APTT (22.0-30.0) sec ABG pCO2 29 L (35-45) mmHg ABG pO2 73 L (83-108) mmHg ABG HCO3 20 L (21-25) mmol/L Potassium (3.5-5.1) mmol/L Chloride (98-107) mmol/L Carbon Dioxide (22-30) mmol/L BUN (9-20) mg/dL Creatinine (0.66-1.25) mg/dL Glucose (74-99) mg/dL POC Glucose (mg/dL) 207 H 228 H (75-99) mg/dL Calcium (8.4-10.2) mg/dL Phosphorus (2.5-4.5) mg/dL 03/27/19 03/27/19 Range/Units 07:54 08:53 WBC (3.8-10.6) k/uL RBC (4.30-5.90) m/uL Hgb (13.0-17.5) gm/dL Hct (39.0-53.0) % Neutrophils # (1.3-7.7) k/uL Lymphocytes # (1.0-4.8) k/uL Monocytes # (0-1.0) k/uL APTT (22.0-30.0) sec ABG pCO2 (35-45) mmHg ABG pO2 (83-108) mmHg ABG HCO3 (21-25) mmol/L Potassium (3.5-5.1) mmol/L Chloride (98-107) mmol/L Carbon Dioxide (22-30) mmol/L BUN (9-20) mg/dL Creatinine (0.66-1.25) mg/dL Glucose (74-99) mg/dL POC Glucose (mg/dL) 180 H 170 H (75-99) mg/dL Calcium (8.4-10.2) mg/dL Phosphorus (2.5-4.5) mg/dL Assessment and Plan (1) Triple vessel disease of the heart Current Visit: Yes Status: Acute Code(s): I25.10 - ATHSCL HEART DISEASE OF [place] CORONARY ARTERY W/O ANG PCTRS SNOMED Code(s): 874680183 (2) Acute exacerbation of chronic obstructive airways disease Current Visit: No Status: Acute Code(s): J44.1 - CHRONIC OBSTRUCTIVE PULMONARY DISEASE W (ACUTE) EXACERBATION SNOMED Code(s): 861595637 (3) Pulmonary edema Current Visit: Yes Status: Acute Code(s): J81.1 - CHRONIC PULMONARY EDEMA SNOMED Code(s): 90540534 Plan: Continue current management. Increase the dose of the metoprolol. Continue anticoagulation therapy. Neurology evaluation. Possible tracheostomy
--- NOTE | 2019-03-27 09:50 | P.PN ---
Subjective Progress Note Date: 03/27/19 Principal diagnosis: Ischemic/necrotic small bowel The patient's condition is still guarded. His white count remains elevated. He has been in atrial fibrillation. Objective - Vital Signs Vital signs: Vital Signs Temp 99.6 F 03/27/19 04:00 Pulse 98 03/27/19 08:28 Resp 24 03/27/19 06:00 BP 134/59 03/26/19 13:00 Pulse Ox 96 03/27/19 06:00 Intake & Output 03/26/19 03/27/19 03/27/19 18:59 06:59 18:59 Intake Total 3752.201 8820.553 22.843 Output Total 2205 1730 Balance -898.528 -410.447 22.843 Weight 82 kg 83.5 kg Intake: IV 1070 854 .9 110 160 Piperacillin-Tazobactam 3 100 .375 gm In Sodium Chloride 0.9% 100 ml @ 25 mls/hr IVPB Q8H [facility] Rx#: [id number] TPN 860 694 Intake, IV Titration 236.472 465.553 22.843 Amount Heparin Sod,Pork in 0.45% 130.353 222.337 NaCl 25,000 unit In 0.45 % NaCl 1 250ml.bag @ 12 UNITS/KG/HR 8.712 mls/hr IV .Q24H [facility] Rx#: [id number] Insulin Regular 100 unit 84.479 65.760 22.843 In Sodium Chloride 0.9% 100 ml @ Per Protocol IV .Q0M [facility] Rx#:[id number] Norepinephrine 8 mg In 58.280 Sodium Chloride 0.9% 250 ml @ 0.05 MCG/KG/MIN 7.44 mls/hr IV .Q24H [facility] Rx#: [id number] Propofol 1,000 mg In 21.64 119.176 Empty Bag 1 bag @ Titrate IV .Q0M [facility] Rx#: [id number] Output: Urine 1055 1430 Stool 1150 300 Other: Voiding Method Indwelling Catheter Indwelling Catheter ABP, PAP, CO, CI - Last Documented Arterial Blood Pressure 148/50 - Exam Patient's intubated on the ventilator he is sedated. - Gastrointestinal Gastrointestinal Comment(s): Abdomen soft. Stoma is pink. Jejunostomies function. - Labs CBC & Chem 7: 03/27/19 04:34 03/27/19 04:34 Labs: Abnormal Lab Results - Last 24 Hours (Table) 03/26/19 03/26/19 03/26/19 Range/Units 05:30 11:29 12:39 WBC 19.9 H (3.8-10.6) k/uL RBC 3.11 L (4.30-5.90) m/uL Hgb 8.5 L (13.0-17.5) gm/dL Hct 27.4 L (39.0-53.0) % Neutrophils # 17.7 H (1.3-7.7) k/uL Lymphocytes # 0.5 L (1.0-4.8) k/uL Monocytes # 1.3 H (0-1.0) k/uL APTT (22.0-30.0) sec ABG pCO2 (35-45) mmHg ABG pO2 (83-108) mmHg ABG HCO3 (21-25) mmol/L Potassium (3.5-5.1) mmol/L Chloride (98-107) mmol/L Carbon Dioxide (22-30) mmol/L BUN (9-20) mg/dL Creatinine (0.66-1.25) mg/dL Glucose (74-99) mg/dL POC Glucose (mg/dL) 216 H 224 H (75-99) mg/dL Calcium (8.4-10.2) mg/dL Phosphorus (2.5-4.5) mg/dL 03/26/19 03/26/19 03/26/19 Range/Units 13:07 13:10 14:04 WBC (3.8-10.6) k/uL RBC (4.30-5.90) m/uL Hgb (13.0-17.5) gm/dL Hct (39.0-53.0) % Neutrophils # (1.3-7.7) k/uL Lymphocytes # (1.0-4.8) k/uL Monocytes # (0-1.0) k/uL APTT 54.5 H (22.0-30.0) sec ABG pCO2 (35-45) mmHg ABG pO2 (83-108) mmHg ABG HCO3 (21-25) mmol/L Potassium (3.5-5.1) mmol/L Chloride (98-107) mmol/L Carbon Dioxide (22-30) mmol/L BUN (9-20) mg/dL Creatinine (0.66-1.25) mg/dL Glucose (74-99) mg/dL POC Glucose (mg/dL) 225 H 212 H (75-99) mg/dL Calcium (8.4-10.2) mg/dL Phosphorus (2.5-4.5) mg/dL 03/26/19 03/26/19 03/26/19 Range/Units 15:00 16:56 18:27 WBC (3.8-10.6) k/uL RBC (4.30-5.90) m/uL Hgb (13.0-17.5) gm/dL Hct (39.0-53.0) % Neutrophils # (1.3-7.7) k/uL Lymphocytes # (1.0-4.8) k/uL Monocytes # (0-1.0) k/uL APTT (22.0-30.0) sec ABG pCO2 (35-45) mmHg ABG pO2 (83-108) mmHg ABG HCO3 (21-25) mmol/L Potassium (3.5-5.1) mmol/L Chloride (98-107) mmol/L Carbon Dioxide (22-30) mmol/L BUN (9-20) mg/dL Creatinine (0.66-1.25) mg/dL Glucose (74-99) mg/dL POC Glucose (mg/dL) 179 H 137 H 146 H (75-99) mg/dL Calcium (8.4-10.2) mg/dL Phosphorus (2.5-4.5) mg/dL 03/26/19 03/26/19 03/26/19 Range/Units 18:59 21:13 22:51 WBC (3.8-10.6) k/uL RBC (4.30-5.90) m/uL Hgb (13.0-17.5) gm/dL Hct (39.0-53.0) % Neutrophils # (1.3-7.7) k/uL Lymphocytes # (1.0-4.8) k/uL Monocytes # (0-1.0) k/uL APTT (22.0-30.0) sec ABG pCO2 (35-45) mmHg ABG pO2 (83-108) mmHg ABG HCO3 (21-25) mmol/L Potassium (3.5-5.1) mmol/L Chloride (98-107) mmol/L Carbon Dioxide (22-30) mmol/L BUN (9-20) mg/dL Creatinine (0.66-1.25) mg/dL Glucose (74-99) mg/dL POC Glucose (mg/dL) 145 H 147 H 128 H (75-99) mg/dL Calcium (8.4-10.2) mg/dL Phosphorus (2.5-4.5) mg/dL 03/27/19 03/27/19 03/27/19 Range/Units 00:36 02:57 04:34 WBC (3.8-10.6) k/uL RBC (4.30-5.90) m/uL Hgb (13.0-17.5) gm/dL Hct (39.0-53.0) % Neutrophils # (1.3-7.7) k/uL Lymphocytes # (1.0-4.8) k/uL Monocytes # (0-1.0) k/uL APTT (22.0-30.0) sec ABG pCO2 (35-45) mmHg ABG pO2 (83-108) mmHg ABG HCO3 (21-25) mmol/L Potassium 5.5 H (3.5-5.1) mmol/L Chloride 110 H (98-107) mmol/L Carbon Dioxide 19 L (22-30) mmol/L BUN 70 H (9-20) mg/dL Creatinine 1.83 H (0.66-1.25) mg/dL Glucose 215 H (74-99) mg/dL POC Glucose (mg/dL) 147 H 202 H (75-99) mg/dL Calcium 7.8 L (8.4-10.2) mg/dL Phosphorus 4.9 H (2.5-4.5) mg/dL 03/27/19 03/27/19 03/27/19 Range/Units 04:34 04:34 05:14 WBC 21.5 H (3.8-10.6) k/uL RBC 2.85 L (4.30-5.90) m/uL Hgb 7.9 L (13.0-17.5) gm/dL Hct 24.3 L (39.0-53.0) % Neutrophils # (1.3-7.7) k/uL Lymphocytes # (1.0-4.8) k/uL Monocytes # (0-1.0) k/uL APTT 64.9 H (22.0-30.0) sec ABG pCO2 (35-45) mmHg ABG pO2 (83-108) mmHg ABG HCO3 (21-25) mmol/L Potassium (3.5-5.1) mmol/L Chloride (98-107) mmol/L Carbon Dioxide (22-30) mmol/L BUN (9-20) mg/dL Creatinine (0.66-1.25) mg/dL Glucose (74-99) mg/dL POC Glucose (mg/dL) 211 H (75-99) mg/dL Calcium (8.4-10.2) mg/dL Phosphorus (2.5-4.5) mg/dL 03/27/19 03/27/19 03/27/19 Range/Units 06:21 06:49 07:51 WBC (3.8-10.6) k/uL RBC (4.30-5.90) m/uL Hgb (13.0-17.5) gm/dL Hct (39.0-53.0) % Neutrophils # (1.3-7.7) k/uL Lymphocytes # (1.0-4.8) k/uL Monocytes # (0-1.0) k/uL APTT (22.0-30.0) sec ABG pCO2 29 L (35-45) mmHg ABG pO2 73 L (83-108) mmHg ABG HCO3 20 L (21-25) mmol/L Potassium (3.5-5.1) mmol/L Chloride (98-107) mmol/L Carbon Dioxide (22-30) mmol/L BUN (9-20) mg/dL Creatinine (0.66-1.25) mg/dL Glucose (74-99) mg/dL POC Glucose (mg/dL) 207 H 228 H (75-99) mg/dL Calcium (8.4-10.2) mg/dL Phosphorus (2.5-4.5) mg/dL 03/27/19 03/27/19 Range/Units 07:54 08:53 WBC (3.8-10.6) k/uL RBC (4.30-5.90) m/uL Hgb (13.0-17.5) gm/dL Hct (39.0-53.0) % Neutrophils # (1.3-7.7) k/uL Lymphocytes # (1.0-4.8) k/uL Monocytes # (0-1.0) k/uL APTT (22.0-30.0) sec ABG pCO2 (35-45) mmHg ABG pO2 (83-108) mmHg ABG HCO3 (21-25) mmol/L Potassium (3.5-5.1) mmol/L Chloride (98-107) mmol/L Carbon Dioxide (22-30) mmol/L BUN (9-20) mg/dL Creatinine (0.66-1.25) mg/dL Glucose (74-99) mg/dL POC Glucose (mg/dL) 180 H 170 H (75-99) mg/dL Calcium (8.4-10.2) mg/dL Phosphorus (2.5-4.5) mg/dL Assessment and Plan Assessment: Status post small bowel resection due to ischemic/necrotic small bowel. Patient will be managed medically. He'll continue Supportive care. His condition is guarded.
[2019-03-27 10:15] LABS: Glucose,Whole Blood 126 mg/dL (75-99)
--- NOTE | 2019-03-27 10:58 | P.PN ---
Subjective Progress Note Date: 03/27/19 Principal diagnosis: acute hypoxic respiratory failure, multifactorial on 03/24/2019 the patient is postop day #3. The patient underwent bowel resection for an acute ischemic bowel and the patient underwent small bowel resection, ileal resection, jejunal resection with diverting jejunostomy. A breeze spontaneous breathing trial was given to him yesterday. The patient feels he became tachypneic and tachycardic and restless. This was aborted. The same will be done today. I feel that he is essentially stable. He remains on a mechanical ventilator on assist control mode at the rate of 12 with a tidal volume of 500 and FiO2 of 40% with a PEEP of 5. Chest x-ray showing pulmonary vascular congestion/small effusion the lungs left more than right. ET tube is in a good location. He is a left IJ triple lumen catheter in place. The patient was given a dose of Lasix yesterday. He did produce some urine output. His creatinine is down to 1.8. The neck fluid balance is +600 mL over the past 24 hours. The creatinine is improving. He is on and off in atrial fibrillati on. After being taken off the amiodarone drip, he was placed on oral amiodarone and this morning is back into atrial fibrillation with a controlled rate. His heart rate goes sometimes in the low 100s. The patient was seen by cardiology. Metoprolol was added. His amiodarone dose was also increased up to 200 mg 3 times a day. He is on IV heparin. He is on norepinephrine infusion which is running at a low backup rate of 0.09 g per KG per minute. He is receiving TPN for nutritional support. He is afebrile for now. All of the cultures of been negative thus far..Note that the patient has COPD,, his FEV1 is normal to 52% of predicted, he has history of diabetes and history of bladder cancer and he has history of stage III kidney disease with polycystic kidney disease disorder. Reevaluated today on 03/25/2019, patient remains on mechanical ventilation, intubated, sedated, ventilator settings are assist control rate of 12, tidal volume is 500 FiO2 40% PEEP of 5. Patient remains on insulin drip, norepinephrine drip at 0.07 mcg/kg/m, remains on propofol which I have discontinued, he is on heparin drip and on TPN. Patient is postoperative day #4. Chest x-ray showed minimal hazy densities at the bases, most likely atelectasis and possibly a small pleural effusion noted. Labs showed the PEEP cigar 20.8 hemoglobin 8.9 ABG showed a pO2 of 98 pCO2 of 40 pH of 7.40. Renal functioning is about the same, creatinine is 1.86. Patient remains on TPN. Patient is not responsive to any stimuli, hence I have discontinued his propofol, and I have switched him to a pressure support and CPAP with a pressure support of 12, previous trial of weaning have failed by Dr. Aguiar, patient developed significant tachypnea and tachycardia with CPAP, however I will try adding pressure support of 12, and we will closely monitor for potential extubation if his mental status improves. Reevaluated today on 03/26/2019, patient remains in the intensive care unit, on mechanical ventilation. Tidal volume is 500 assist control rate of 12 FiO2 is 40% and PEEP is 5. Remains on levo fed at 0.05 mcg/kg/m, still requiring propofol, insulin drip, and he is on heparin drip. Mental status is extremely poor, patient has been off propofol now for the last 2 hours, and does not seem to be waking up to follow any instructions at this point yet. Yesterday he was off sedation for 4 hours, and he was getting extremely agitated, had to be placed back on assist control mode of mechanical ventilation, and placed back on sedation. We plan to continue to do so today. Family is at bedside, however I'm a bit concerned about his mental status, even off sedation the patient does not seem to respond to any stimuli including deep painful stimuli. I would recommend a CT of the brain, I would also recommend a neurological consultation on this patient.labs today werelabs today were all reviewed.WBC count is 19.9 hemoglobin is 8.5. ABG showed a pO2 of 102 pCO2 of 32 pH of 7.45.renal profile is a bit improving BUN is 66 creatinine is 1.85. Family is at bedside, and updated on his condition. CT of the brain showed cerebral atrophy, age-related, chronic small vessel ischemia, difficult to rule out subacute ischemia. His basal ganglia showed asymmetry, hence MRI was recommended by the radiologist. Will leave that decision to the neurologist whom I will consult today.chest x- ray showed overall stable findings, chronic emphysematous changes, small pleural effusions, and minimal bibasilar atelectasis. Reevaluated today on 03/27/2019, remains intubated and mechanically ventilated. His ventilator settings are basically the same, patient is on tidal volume of 500 assist control rate of 12 FiO2 of 40% and PEEP of 5. ABG this morning showed a pO2 of 73 pCO2 of 29 pH of 7.45. Chest x-ray is showing evidence of interstitial edema. Patient is having intermittent episodes of atrial f ibrillation with RVR, and his beta luisa dose was increased by cardiology. Remains on insulin drip, propofol drip, remains on antibiotics, remains on enteral feeding and on TPN. Will likely discontinue TPN once the enteral feeding is up to goal. Mental status owens remains poor, in the last few days I have been trying daily to hold sedation and assessment of status, however his mental status is extremely poor, and his CT of the brain was done by neurology, his basal ganglia showed asymmetry, and radiologist suggested possible MRI. However that will be decided upon by neurology on the case. Otherwise his CT of the brain is unremarkable. There is age-related cortical atrophy. Considering his chest x-ray showing evidence of slight interstitial edema, I have recommended a dose of Lasix 40 mg IV push to be given today. Patient remains hemodynamically stable in spite of his atrial fibrillation and RVR, and considering his cardiac findings I would recommend no plans to hold sedation today, place him back on propofol, and continue supportive care measures. Considering the overall picture, May have to seriously considered tracheostomy on this patient sometime next week. I doubt if we would be able to successfully wean the patient at this time. Objective - Vital Signs Vital signs: Vital Signs Temp 99.6 F 03/27/19 04:00 Pulse 98 03/27/19 08:28 Resp 24 03/27/19 06:00 BP 134/59 03/26/19 13:00 Pulse Ox 96 03/27/19 06:00 Intake & Output 03/26/19 03/27/19 03/27/19 18:59 06:59 18:59 Intake Total 0377.430 5544.553 93.281 Output Total 2205 1730 Balance -898.528 -410.447 93.281 Weight 82 kg 83.5 kg Intake: IV 1070 854 .9 110 160 Piperacillin-Tazobactam 3 100 .375 gm In Sodium Chloride 0.9% 100 ml @ 25 mls/hr IVPB Q8H [facility] Rx#: [id number] TPN 860 694 Intake, IV Titration 236.472 465.553 93.281 Amount Heparin Sod,Pork in 0.45% 130.353 222.337 NaCl 25,000 unit In 0.45 % NaCl 1 250ml.bag @ 12 UNITS/KG/HR 8.712 mls/hr IV .Q24H [facility] Rx#: [id number] Insulin Regular 100 unit 84.479 65.760 36.916 In Sodium Chloride 0.9% 100 ml @ Per Protocol IV .Q0M [facility] Rx#:[id number] Norepinephrine 8 mg In 58.280 22.965 Sodium Chloride 0.9% 250 ml @ 0.05 MCG/KG/MIN 7.44 mls/hr IV .Q24H [facility] Rx#: [id number] Propofol 1,000 mg In 21.64 119.176 33.400 Empty Bag 1 bag @ Titrate IV .Q0M [facility] Rx#: [id number] Output: Urine 1055 1430 Stool 1150 300 Other: Voiding Method Indwelling Catheter Indwelling Catheter ABP, PAP, CO, CI - Last Documented Arterial Blood Pressure 148/50 - Exam Physical Exam: Revealed a 73-year-old white male intubated on mechanical ventilation, and gets extremely agitated and restless off propofol, but no resp onses to verbal or painful stimuli. Head: Atraumatic, normocephalic. Endotracheal tube and orogastric tube are intact. HEENT:[Neck is supple.] [No neck masses.] [No thyromegaly.] [No JVD.] PERRLA, E JARED, no icterus. Chest: [Symmetrical chest expansion, crackles at the bases bilaterally. Some wheezing. Cardiac Exam: [Normal S1 and S2, no S3 gallop, no murmur.] Abdomen: [ reveals absent absent bowel sounds, jejunostomy site is viable and there is some liquidy material collecting in the back. The patient also has a mid abdominal incision which is dry clean and intact at this point in time.. Extremities: [No clubbing, no edema, no cyanosis.] Neurological Exam: obtunded, not responding to any painful or verbal stimuli. Pupils equally reactive to light and accommodation. Psychiatric: Cannot be obtained. Skin: No rashes. - Labs CBC & Chem 7: 03/27/19 04:34 03/27/19 04:34 Labs: Abnormal Lab Results - Last 24 Hours (Table) 03/26/19 03/26/19 03/26/19 Range/Units 05:30 11:29 12:39 WBC 19.9 H (3.8-10.6) k/uL RBC 3.11 L (4.30-5.90) m/uL Hgb 8.5 L (13.0-17.5) gm/dL Hct 27.4 L (39.0-53.0) % Neutrophils # 17.7 H (1.3-7.7) k/uL Lymphocytes # 0.5 L (1.0-4.8) k/uL Monocytes # 1.3 H (0-1.0) k/uL APTT (22.0-30.0) sec ABG pCO2 (35-45) mmHg ABG pO2 (83-108) mmHg ABG HCO3 (21-25) mmol/L Potassium (3.5-5.1) mmol/L Chloride (98-107) mmol/L Carbon Dioxide (22-30) mmol/L BUN (9-20) mg/dL Creatinine (0.66-1.25) mg/dL Glucose (74-99) mg/dL POC Glucose (mg/dL) 216 H 224 H (75-99) mg/dL Calcium (8.4-10.2) mg/dL Phosphorus (2.5-4.5) mg/dL 03/26/19 03/26/19 03/26/19 Range/Units 13:07 13:10 14:04 WBC (3.8-10.6) k/uL RBC (4.30-5.90) m/uL Hgb (13.0-17.5) gm/dL Hct (39.0-53.0) % Neutrophils # (1.3-7.7) k/uL Lymphocytes # (1.0-4.8) k/uL Monocytes # (0-1.0) k/uL APTT 54.5 H (22.0-30.0) sec ABG pCO2 (35-45) mmHg ABG pO2 (83-108) mmHg ABG HCO3 (21-25) mmol/L Potassium (3.5-5.1) mmol/L Chloride (98-107) mmol/L Carbon Dioxide (22-30) mmol/L BUN (9-20) mg/dL Creatinine (0.66-1.25) mg/dL Glucose (74-99) mg/dL POC Glucose (mg/dL) 225 H 212 H (75-99) mg/dL Calcium (8.4-10.2) mg/dL Phosphorus (2.5-4.5) mg/dL 03/26/19 03/26/19 03/26/19 Range/Units 15:00 16:56 18:27 WBC (3.8-10.6) k/uL RBC (4.30-5.90) m/uL Hgb (13.0-17.5) gm/dL Hct (39.0-53.0) % Neutrophils # (1.3-7.7) k/uL Lymphocytes # (1.0-4.8) k/uL Monocytes # (0-1.0) k/uL APTT (22.0-30.0) sec ABG pCO2 (35-45) mmHg ABG pO2 (83-108) mmHg ABG HCO3 (21-25) mmol/L Potassium (3.5-5.1) mmol/L Chloride (98-107) mmol/L Carbon Dioxide (22-30) mmol/L BUN (9-20) mg/dL Creatinine (0.66-1.25) mg/dL Glucose (74-99) mg/dL POC Glucose (mg/dL) 179 H 137 H 146 H (75-99) mg/dL Calcium (8.4-10.2) mg/dL Phosphorus (2.5-4.5) mg/dL 03/26/19 03/26/19 03/26/19 Range/Units 18:59 21:13 22:51 WBC (3.8-10.6) k/uL RBC (4.30-5.90) m/uL Hgb (13.0-17.5) gm/dL Hct (39.0-53.0) % Neutrophils # (1.3-7.7) k/uL Lymphocytes # (1.0-4.8) k/uL Monocytes # (0-1.0) k/uL APTT (22.0-30.0) sec ABG pCO2 (35-45) mmHg ABG pO2 (83-108) mmHg ABG HCO3 (21-25) mmol/L Potassium (3.5-5.1) mmol/L Chloride (98-107) mmol/L Carbon Dioxide (22-30) mmol/L BUN (9-20) mg/dL Creatinine (0.66-1.25) mg/dL Glucose (74-99) mg/dL POC Glucose (mg/dL) 145 H 147 H 128 H (75-99) mg/dL Calcium (8.4-10.2) mg/dL Phosphorus (2.5-4.5) mg/dL 03/27/19 03/27/19 03/27/19 Range/Units 00:36 02:57 04:34 WBC (3.8-10.6) k/uL RBC (4.30-5.90) m/uL Hgb (13.0-17.5) gm/dL Hct (39.0-53.0) % Neutrophils # (1.3-7.7) k/uL Lymphocytes # (1.0-4.8) k/uL Monocytes # (0-1.0) k/uL APTT (22.0-30.0) sec ABG pCO2 (35-45) mmHg ABG pO2 (83-108) mmHg ABG HCO3 (21-25) mmol/L Potassium 5.5 H (3.5-5.1) mmol/L Chloride 110 H (98-107) mmol/L Carbon Dioxide 19 L (22-30) mmol/L BUN 70 H (9-20) mg/dL Creatinine 1.83 H (0.66-1.25) mg/dL Glucose 215 H (74-99) mg/dL POC Glucose (mg/dL) 147 H 202 H (75-99) mg/dL Calcium 7.8 L (8.4-10.2) mg/dL Phosphorus 4.9 H (2.5-4.5) mg/dL 03/27/19 03/27/19 03/27/19 Range/Units 04:34 04:34 05:14 WBC 21.5 H (3.8-10.6) k/uL RBC 2.85 L (4.30-5.90) m/uL Hgb 7.9 L (13.0-17.5) gm/dL Hct 24.3 L (39.0-53.0) % Neutrophils # (1.3-7.7) k/uL Lymphocytes # (1.0-4.8) k/uL Monocytes # (0-1.0) k/uL APTT 64.9 H (22.0-30.0) sec ABG pCO2 (35-45) mmHg ABG pO2 (83-108) mmHg ABG HCO3 (21-25) mmol/L Potassium (3.5-5.1) mmol/L Chloride (98-107) mmol/L Carbon Dioxide (22-30) mmol/L BUN (9-20) mg/dL Creatinine (0.66-1.25) mg/dL Glucose (74-99) mg/dL POC Glucose (mg/dL) 211 H (75-99) mg/dL Calcium (8.4-10.2) mg/dL Phosphorus (2.5-4.5) mg/dL 03/27/19 03/27/19 03/27/19 Range/Units 06:21 06:49 07:51 WBC (3.8-10.6) k/uL RBC (4.30-5.90) m/uL Hgb (13.0-17.5) gm/dL Hct (39.0-53.0) % Neutrophils # (1.3-7.7) k/uL Lymphocytes # (1.0-4.8) k/uL Monocytes # (0-1.0) k/uL APTT (22.0-30.0) sec ABG pCO2 29 L (35-45) mmHg ABG pO2 73 L (83-108) mmHg ABG HCO3 20 L (21-25) mmol/L Potassium (3.5-5.1) mmol/L Chloride (98-107) mmol/L Carbon Dioxide (22-30) mmol/L BUN (9-20) mg/dL Creatinine (0.66-1.25) mg/dL Glucose (74-99) mg/dL POC Glucose (mg/dL) 207 H 228 H (75-99) mg/dL Calcium (8.4-10.2) mg/dL Phosphorus (2.5-4.5) mg/dL 03/27/19 03/27/19 03/27/19 Range/Units 07:54 08:53 10:15 WBC (3.8-10.6) k/uL RBC (4.30-5.90) m/uL Hgb (13.0-17.5) gm/dL Hct (39.0-53.0) % Neutrophils # (1.3-7.7) k/uL Lymphocytes # (1.0-4.8) k/uL Monocytes # (0-1.0) k/uL APTT (22.0-30.0) sec ABG pCO2 (35-45) mmHg ABG pO2 (83-108) mmHg ABG HCO3 (21-25) mmol/L Potassium (3.5-5.1) mmol/L Chloride (98-107) mmol/L Carbon Dioxide (22-30) mmol/L BUN (9-20) mg/dL Creatinine (0.66-1.25) mg/dL Glucose (74-99) mg/dL POC Glucose (mg/dL) 180 H 170 H 126 H (75-99) mg/dL Calcium (8.4-10.2) mg/dL Phosphorus (2.5-4.5) mg/dL Assessment and Plan Assessment: Impression: Severe multivessel coronary artery disease, post non-ST elevation myocardial infarction. Patient was being considered for surgery, however considering his ischemic bowel issue that is presently on hold. Ischemic cardiomyopathy and LV dysfunction ejection fraction of 35%. Severe pulmonary hypertension Moderate severe mitral regurgitation Acute ischemic small bowel requiring exploratory laparotomy, and ileal/a jejunostomy resection and diverting jejunostomy. Postoperative day #4. Type 2 diabetes, currently on insulin as per protocol. Hyperlipidemia. Polycystic kidney disease. Chronic obstructive pulmonary disease and chronic smoking history. Chronic stage III kidney failure with acute on chronic kidney disease, improving but not resolved Benign essential hypertension. Severe pulmonary hypertension and moderate to severe mitral regurgitation postoperative hypoxic respiratory failure, multifactorial, secondary to ischemic cardiomyopathy, LV dysfunction, severe pulmonary hypertension, underlying COPD, and moderate to severe mitral regurgitation. This is not expected. Paroxysmal atrial fibrillation with RVR, being addressed by cardiology. His beta luisa dose was increased. Recommendation: Continue ventilatory support, Advance nutrition/enteral feeding and possibly discontinue TPN if agreeable with surgery. Resume sedation as per protocol. Diurese for abnormal chest x-ray today. Continue empiric antibiotics. Continue diuretics as needed. Continue cardiac meds as per cardiology. Continue to monitor renal status. Continue daily chest x-rays. Continue GI and DVT prophylaxis. We will continue to follow. Prognosis seems to be getting poorer and poorer, family will be updated on his condition, Discussed his condition with Dr. Hayes on the case, we will likely consider tracheostomy next week. Critical care time is 34 minutes Time with Patient: Greater than 30
[2019-03-27] MEDS ORDERED: 1: MVI, ADULT NO.4 WITH VIT K 10 ML, TRACE (CONC-1ML/DOSE) 1 ML, SODIUM ACETATE 30 MEQ, IV SCH ×5 (11:00)
[2019-03-27] MEDS: NOREPINEPHRINE 8 MG in SODIUM CHLORIDE 0.9% 250 ML IV SCH ×2 (11:02→12:37)
[2019-03-27 11:06] LABS: Glucose,Whole Blood 121 mg/dL (75-99)
[2019-03-27 11:54] LABS: Glucose,Whole Blood 119 mg/dL (75-99)
[2019-03-27] MEDS ORDERED: DILTIAZEM DRIP BOLUS FROM BAG 1 MG SOLN IV ONE (13:14)
--- NOTE | 2019-03-27 13:35 | P.CNNES ---
History of Present Illness Consult date: 03/27/19 Requesting physician: Jayda Costello Reason for Consult: No neuro response while off propofol History of Present Illness: Patient is a 73-year-old male, who came to the hospital on 03/14/2019 for a positive stress test. Patient has a multitude issues mentioned in critical care progress notes. In summary, patient has suffered from non-STEMI, CHF, ischemic bowel requiring laparotomy and removal of part of the bowel. Patient has not been able to be extubated. Patient also has paroxysmal atrial fibrillation. He is currently on sedation at propofol 40 g. When the sedation was decreased, patient went into respiratory distress, and recurrence of atrial fibrillation. No meaningful response was noted when sedation was decreased. This prompted neurology consultation. Patient had a carotid Doppler on 03/14/2019 which revealed heterogeneous plaque with stenosis noted bilaterally, left side more significant in the mid ICA. No flow seen in the left vertebral artery. Antegrade flow in the right vertebral artery. Patient had a computed tomography scan of head performed 03/26/2019 which revealed age-related changes of atrophy and probable chronic small vessel ischemia. Difficult to exclude subacute ischemia, basal ganglia showed asymmetry. MRI may be of benefit. Review of Systems ROS unobtainable: due to endotracheal tube, due to mental status Past Medical History Past Medical History: Atrial Fibrillation, Coronary Artery Disease (CAD), COPD, Diabetes Mellitus, GERD/Reflux, Hyperlipidemia, Myocardial Infarction ([place]), Pro state Disorder, Renal Disease Additional Past Medical History / Comment(s): [place] x 2, see Dr Price H&P, renal failure, diff urinating due to enlarged prostate, hx bladder cancer, paroxysmal atrial fibrillation on Eliquis Last Myocardial Infarction Date:: 01/2018 History of Any Multi-Drug Resistant Organisms: None Reported Past Surgical History: Heart Catheterization, Hernia Repair, Orthopedic Surgery Additional Past Surgical History / Comment(s): surgery to remove bladder tumor, rt shoulder surgery, Past Anesthesia/Blood Transfusion Reactions: No Reported Reaction Smoking Status: Current every day smoker Past Alcohol Use History: None Reported Past Drug Use History: None Reported - Past Family History Brother(s) Family Medical History: Coronary Artery Disease (CAD) Mother Family Medical History: No Reported History Medications and Allergies Home Medications Medication Instructions Recorded Confirmed Type Aspirin EC [Ecotrin Low Dose] 81 mg PO DAILY 01/26/18 03/13/19 History Fenofibrate Nanocrystallized 145 mg PO DAILY 01/26/18 03/13/19 History [Tricor] Linagliptin [Tradjenta] 5 mg PO DAILY 01/26/18 03/13/19 History Metoprolol Tartrate [Lopressor] 100 mg PO BID 01/26/18 03/13/19 History Omeprazole [PriLOSEC] 20 mg PO DAILY 01/26/18 03/13/19 History Simvastatin 40 mg PO HS 01/26/18 03/13/19 History glipiZIDE [Glucotrol] 10 mg PO AC-BID 01/26/18 03/13/19 History Apixaban [Eliquis] 2.5 mg PO BID #60 tablet 01/30/18 03/11/19 Rx Furosemide [Lasix] 40 mg PO DAILY #30 tab 01/30/18 03/13/19 Rx Lisinopril [Zestril] 10 mg PO DAILY #30 tab 01/30/18 03/13/19 Rx Fluticasone/Vilanterol [Breo 1 inhalation INHALATION QAM 03/11/19 03/13/19 History Ellipta 200-25 Mcg INH] Isosorbide Mononitrate [Isosorbide 30 mg PO DAILY 03/11/19 03/13/19 History Mononitrate ER] amLODIPine [Norvasc] 10 mg PO DAILY 03/11/19 03/13/19 History hydrALAZINE HCL [Apresoline] 50 mg PO TID 03/11/19 03/13/19 History Allergies Allergy/AdvReac Type Severity Reaction Status Date / Time No Known Allergies Allergy Verified 03/11/19 14:35 Physical Examination - Vital Signs Vital Signs: Vital Signs Temp Pulse Resp BP Pulse Ox 03/27/19 12:15 115 H 28 H 103/58 96 03/27/19 12:00 99 F 116 H 32 H 95/53 96 03/27/19 11:45 115 H 29 H 95/53 95 03/27/19 11:40 112 H 03/27/19 11:30 118 H 22 95/53 96 03/27/19 11:27 110 H 03/27/19 11:15 121 H 31 H 95/53 94 L 03/27/19 11:00 115 H 32 H 103/65 94 L 03/27/19 10:00 121 H 33 H 116/67 94 L 03/27/19 09:00 121 H 32 H 137/73 91 L 03/27/19 08:28 98 03/27/19 08:00 98 F 97 21 134/67 98 03/27/19 07:55 94 03/27/19 07:00 90 24 128/66 96 03/27/19 06:00 88 24 96 03/27/19 05:00 86 27 H 96 03/27/19 04:00 99.6 F 85 22 97 03/27/19 03:00 84 28 H 97 03/27/19 02:00 86 27 H 95 03/27/19 01:00 82 29 H 97 03/27/19 00:00 99.7 F H 85 26 H 94 L 03/26/19 23:00 89 24 95 03/26/19 22:26 84 25 H 94 L 03/26/19 22:00 87 24 97 03/26/19 21:00 90 22 97 03/26/19 20:24 84 03/26/19 20:03 86 03/26/19 20:00 99.7 F H 84 26 H 98 03/26/19 19:00 85 26 H 98 03/26/19 18:00 83 18 96 03/26/19 17:00 86 20 97 03/26/19 16:25 84 03/26/19 16:10 84 03/26/19 16:00 98.1 F 85 21 96 03/26/19 15:00 86 21 96 03/26/19 14:00 86 24 97 Intake and Output 03/26/19 03/27/19 03/27/19 22:59 06:59 14:59 Intake Total 976.033 6021.576 698.427 Output Total 1005 1520 875 Balance -672.441 -278.424 -176.573 Intake: IV 246 824 359 .9 20 160 10 Piperacillin-Tazobactam 3 100 .375 gm In Sodium Chloride 0.9% 100 ml @ 25 mls/hr IVPB Q8H [facility] Rx#: [id number] TPN 226 664 249 Intake, IV Titration 86.559 417.576 186.427 Amount Heparin Sod,Pork in 0.45% 222.337 84.615 NaCl 25,000 unit In 0.45 % NaCl 1 250ml.bag @ 12 UNITS/KG/HR 8.712 mls/hr IV .Q24H [facility] Rx#: [id number] Insulin Regular 100 unit 72.291 32.051 36.916 In Sodium Chloride 0.9% 100 ml @ Per Protocol IV .Q0M [facility] Rx#:[id number] Norepinephrine 8 mg In 58.280 31.496 Sodium Chloride 0.9% 250 ml @ 0.05 MCG/KG/MIN 7.44 mls/hr IV .Q24H [facility] Rx#: [id number] Propofol 1,000 mg In 14.268 104.908 33.400 Empty Bag 1 bag @ Titrate IV .Q0M [facility] Rx#: [id number] Tube Feeding 123 Other 30 Output: Urine 655 1220 875 Stool 350 300 Other: Voiding Method Indwelling Catheter Indwelling Catheter Weight 83.5 kg ABP, PAP, CO, CI - Last 8 Hours Arterial Blood Pressure 97/46 Arterial Blood Pressure 100/44 Arterial Blood Pressure 87/42 Arterial Blood Pressure 93/42 Arterial Blood Pressure 86/41 Arterial Blood Pressure 100/44 Arterial Blood Pressure 110/44 Arterial Blood Pressure 126/50 Arterial Blood Pressure 175/52 Arterial Blood Pressure 158/51 Arterial Blood Pressure 148/50 On examination patient is an elderly male, who is intubated, sedated. Patient is on 30 g of propofol. Patient pupils are small, about 3 mm, barely reacting. Oculocephalics are absent. Corneals are mildly present. Patient does breathe over the ventilator. He does have a gag and cough reflexes. Patient does not respond to painful stimuli. Reflexes are 2+ in the upper limbs, 3 at the right knee, 1+ on the left. Ankles are absent and plantars are flat bilaterally. No clonus. No obvious seizure activity noted. Tone is equal in the arms and legs. Results - Laboratory Findings CBC and BMP: 03/28/19 04:15 03/28/19 04:15 Abnormal Lab Findings: Abnormal Labs 03/13/19 03/13/19 03/13/19 07:41 16:33 20:04 WBC RBC Hgb Hct Neutrophils # Neutrophils # (Manual) Lymphocytes # Lymphocytes # (Manual) Monocytes # Monocytes # (Manual) Basophils # APTT ABG pH ABG pCO2 ABG pO2 ABG HCO3 ABG Total CO2 ABG O2 Saturation Sodium Potassium Chloride Carbon Dioxide BUN Creatinine Glucose POC Glucose (mg/dL) 135 H 111 H 317 H Hemoglobin A1c Plasma Lactic Acid Perez Calcium Ionized Calcium Abran Phosphorus Magnesium Troponin I Albumin 03/14/19 03/14/19 03/14/19 07:05 07:09 07:58 WBC 17.3 H RBC Hgb Hct Neutrophils # 15.4 H Neutrophils # (Manual) Lymphocytes # 0.7 L Lymphocytes # (Manual) Monocytes # Monocytes # (Manual) Basophils # APTT ABG pH ABG pCO2 ABG pO2 ABG HCO3 ABG Total CO2 ABG O2 Saturation Sodium Potassium Chloride Carbon Dioxide BUN Creatinine 1.70 H Glucose 187 H POC Glucose (mg/dL) 182 H Hemoglobin A1c Plasma Lactic Acid Perez Calcium Ionized Calcium Abran Phosphorus Magnesium Troponin I Albumin 03/14/19 03/14/19 03/14/19 07:58 08:17 08:35 WBC RBC Hgb Hct Neutrophils # Neutrophils # (Manual) Lymphocytes # Lymphocytes # (Manual) Monocytes # Monocytes # (Manual) Basophils # APTT ABG pH ABG pCO2 ABG pO2 ABG HCO3 ABG Total CO2 ABG O2 Saturation Sodium Potassium Chloride Carbon Dioxide BUN Creatinine Glucose POC Glucose (mg/dL) 240 H Hemoglobin A1c 8.9 H Plasma Lactic Acid Perez Calcium Ionized Calcium Abran Phosphorus Magnesium Troponin I 0.044 H* Albumin 03/14/19 03/14/19 03/14/19 14:10 18:52 19:48 WBC RBC Hgb Hct Neutrophils # Neutrophils # (Manual) Lymphocytes # Lymphocytes # (Manual) Monocytes # Monocytes # (Manual) Basophils # APTT ABG pH ABG pCO2 ABG pO2 ABG HCO3 ABG Total CO2 ABG O2 Saturation Sodium Potassium Chloride Carbon Dioxide BUN Creatinine Glucose POC Glucose (mg/dL) 244 H Hemoglobin A1c Plasma Lactic Acid Perez Calcium Ionized Calcium Abran Phosphorus Magnesium Troponin I 2.170 H* 4.770 H* Albumin 03/14/19 03/14/19 03/15/19 20:47 21:06 00:47 WBC RBC Hgb Hct Neutrophils # Neutrophils # (Manual) Lymphocytes # Lymphocytes # (Manual) Monocytes # Monocytes # (Manual) Basophils # APTT 40.8 H ABG pH ABG pCO2 ABG pO2 ABG HCO3 ABG Total CO2 ABG O2 Saturation Sodium Potassium Chloride Carbon Dioxide BUN Creatinine Glucose POC Glucose (mg/dL) 169 H 159 H Hemoglobin A1c Plasma Lactic Acid Perez Calcium Ionized Calcium Abran Phosphorus Magnesium Troponin I Albumin 03/15/19 03/15/19 03/15/19 02:29 05:27 05:27 WBC 15.2 H RBC Hgb 12.6 L Hct Neutrophils # Neutrophils # (Manual) Lymphocytes # Lymphocytes # (Manual) Monocytes # Monocytes # (Manual) Basophils # APTT ABG pH ABG pCO2 ABG pO2 ABG HCO3 ABG Total CO2 ABG O2 Saturation Sodium 136 L Potassium Chloride Carbon Dioxide BUN 24 H Creatinine 1.77 H Glucose 136 H POC Glucose (mg/dL) Hemoglobin A1c Plasma Lactic Acid Perez Calcium Ionized Calcium Abran Phosphorus Magnesium Troponin I 4.040 H* Albumin 03/15/19 03/15/19 03/15/19 05:27 06:58 08:20 WBC RBC Hgb Hct Neutrophils # Neutrophils # (Manual) Lymphocytes # Lymphocytes # (Manual) Monocytes # Monocytes # (Manual) Basophils # APTT 38.0 H ABG pH ABG pCO2 ABG pO2 ABG HCO3 ABG Total CO2 ABG O2 Saturation Sodium Potassium Chloride Carbon Dioxide BUN Creatinine Glucose POC Glucose (mg/dL) 140 H Hemoglobin A1c Plasma Lactic Acid Perez Calcium Ionized Calcium Abran Phosphorus Magnesium Troponin I 2.450 H* Albumin 03/15/19 03/15/19 03/15/19 11:52 14:42 14:42 WBC RBC Hgb Hct Neutrophils # Neutrophils # (Manual) Lymphocytes # Lymphocytes # (Manual) Monocytes # Monocytes # (Manual) Basophils # APTT 74.9 H ABG pH ABG pCO2 ABG pO2 ABG HCO3 ABG Total CO2 ABG O2 Saturation Sodium Potassium Chloride Carbon Dioxide BUN Creatinine Glucose POC Glucose (mg/dL) 236 H Hemoglobin A1c Plasma Lactic Acid Perez Calcium Ionized Calcium Abran Phosphorus Magnesium Troponin I 1.760 H* Albumin 03/15/19 03/15/19 03/16/19 16:57 20:37 04:30 WBC RBC Hgb Hct Neutrophils # Neutrophils # (Manual) Lymphocytes # Lymphocytes # (Manual) Monocytes # Monocytes # (Manual) Basophils # APTT 48.3 H ABG pH ABG pCO2 ABG pO2 ABG HCO3 ABG Total CO2 ABG O2 Saturation Sodium Potassium Chloride Carbon Dioxide BUN Creatinine Glucose POC Glucose (mg/dL) 243 H 174 H Hemoglobin A1c Plasma Lactic Acid Perez Calcium Ionized Calcium Abran Phosphorus Magnesium Troponin I Albumin 03/16/19 03/16/19 03/16/19 04:30 04:30 06:55 WBC 16.0 H RBC Hgb 12.6 L Hct 37.9 L Neutrophils # 14.4 H Neutrophils # (Manual) Lymphocytes # 0.5 L Lymphocytes # (Manual) Monocytes # Monocytes # (Manual) Basophils # APTT ABG pH ABG pCO2 ABG pO2 ABG HCO3 ABG Total CO2 ABG O2 Saturation Sodium 132 L Potassium Chloride Carbon Dioxide BUN 31 H Creatinine 1.82 H Glucose 202 H POC Glucose (mg/dL) 241 H Hemoglobin A1c Plasma Lactic Acid Perez Calcium Ionized Calcium Abran Phosphorus Magnesium Troponin I Albumin 03/16/19 03/16/19 03/16/19 11:45 18:12 20:42 WBC RBC Hgb Hct Neutrophils # Neutrophils # (Manual) Lymphocytes # Lymphocytes # (Manual) Monocytes # Monocytes # (Manual) Basophils # APTT ABG pH ABG pCO2 ABG pO2 ABG HCO3 ABG Total CO2 ABG O2 Saturation Sodium Potassium Chloride Carbon Dioxide BUN Creatinine Glucose POC Glucose (mg/dL) 210 H 206 H 143 H Hemoglobin A1c Plasma Lactic Acid Perez Calcium Ionized Calcium Abran Phosphorus Magnesium Troponin I Albumin 03/17/19 03/17/19 03/17/19 04:33 04:33 04:33 WBC 14.0 H RBC Hgb 12.4 L Hct 38.4 L Neutrophils # 12.3 H Neutrophils # (Manual) Lymphocytes # 0.5 L Lymphocytes # (Manual) Monocytes # Monocytes # (Manual) Basophils # APTT 48.0 H ABG pH ABG pCO2 ABG pO2 ABG HCO3 ABG Total CO2 ABG O2 Saturation Sodium 132 L Potassium Chloride Carbon Dioxide BUN 34 H Creatinine 1.87 H Glucose 125 H POC Glucose (mg/dL) Hemoglobin A1c Plasma Lactic Acid Perez Calcium Ionized Calcium Abran Phosphorus Magnesium Troponin I Albumin 03/17/19 03/17/19 03/17/19 06:46 11:19 16:29 WBC RBC Hgb Hct Neutrophils # Neutrophils # (Manual) Lymphocytes # Lymphocytes # (Manual) Monocytes # Monocytes # (Manual) Basophils # APTT ABG pH ABG pCO2 ABG pO2 ABG HCO3 ABG Total CO2 ABG O2 Saturation Sodium Potassium Chloride Carbon Dioxide BUN Creatinine Glucose POC Glucose (mg/dL) 127 H 146 H 213 H Hemoglobin A1c Plasma Lactic Acid Perez Calcium Ionized Calcium Abran Phosphorus Magnesium Troponin I Albumin 03/17/19 03/18/19 03/18/19 21:20 04:38 04:38 WBC 15.0 H RBC Hgb Hct Neutrophils # Neutrophils # (Manual) Lymphocytes # Lymphocytes # (Manual) Monocytes # Monocytes # (Manual) Basophils # APTT 39.4 H ABG pH ABG pCO2 ABG pO2 ABG HCO3 ABG Total CO2 ABG O2 Saturation Sodium Potassium Chloride Carbon Dioxide BUN Creatinine Glucose POC Glucose (mg/dL) 189 H Hemoglobin A1c Plasma Lactic Acid Perez Calcium Ionized Calcium Abran Phosphorus Magnesium Troponin I Albumin 03/18/19 03/18/19 03/18/19 04:38 06:43 12:22 WBC RBC Hgb Hct Neutrophils # Neutrophils # (Manual) Lymphocytes # Lymphocytes # (Manual) Monocytes # Monocytes # (Manual) Basophils # APTT ABG pH ABG pCO2 ABG pO2 ABG HCO3 ABG Total CO2 ABG O2 Saturation Sodium 133 L Potassium Chloride 97 L Carbon Dioxide BUN 35 H Creatinine 1.74 H Glucose 213 H POC Glucose (mg/dL) 250 H 220 H Hemoglobin A1c Plasma Lactic Acid Perez Calcium Ionized Calcium Abran Phosphorus Magnesium Troponin I Albumin 03/18/19 03/18/19 03/18/19 16:45 18:04 20:30 WBC RBC Hgb Hct Neutrophils # Neutrophils # (Manual) Lymphocytes # Lymphocytes # (Manual) Monocytes # Monocytes # (Manual) Basophils # APTT 39.8 H ABG pH ABG pCO2 ABG pO2 ABG HCO3 ABG Total CO2 ABG O2 Saturation Sodium Potassium Chloride Carbon Dioxide BUN Creatinine Glucose POC Glucose (mg/dL) 205 H 273 H Hemoglobin A1c Plasma Lactic Acid Perez Calcium Ionized Calcium Abran Phosphorus Magnesium Troponin I Albumin 03/18/19 03/19/19 03/19/19 23:52 05:20 05:20 WBC 11.0 H RBC Hgb Hct Neutrophils # 9.6 H Neutrophils # (Manual) Lymphocytes # 0.0 L Lymphocytes # (Manual) Monocytes # Monocytes # (Manual) Basophils # APTT 72.4 H ABG pH ABG pCO2 ABG pO2 ABG HCO3 ABG Total CO2 ABG O2 Saturation Sodium 131 L Potassium Chloride 93 L Carbon Dioxide BUN 41 H Creatinine 1.56 H Glucose 330 H POC Glucose (mg/dL) Hemoglobin A1c Plasma Lactic Acid Perez Calcium Ionized Calcium Abran Phosphorus Magnesium 2.4 H Troponin I Albumin 03/19/19 03/19/19 03/19/19 05:20 06:43 11:50 WBC RBC Hgb Hct Neutrophils # Neutrophils # (Manual) Lymphocytes # Lymphocytes # (Manual) Monocytes # Monocytes # (Manual) Basophils # APTT 55.6 H ABG pH ABG pCO2 ABG pO2 ABG HCO3 ABG Total CO2 ABG O2 Saturation Sodium Potassium Chloride Carbon Dioxide BUN Creatinine Glucose POC Glucose (mg/dL) 337 H 288 H Hemoglobin A1c Plasma Lactic Acid Perez Calcium Ionized Calcium Abran Phosphorus Magnesium Troponin I Albumin 03/19/19 03/19/19 03/19/19 13:46 15:55 18:28 WBC RBC Hgb Hct Neutrophils # Neutrophils # (Manual) Lymphocytes # Lymphocytes # (Manual) Monocytes # Monocytes # (Manual) Basophils # APTT 138.7 H* ABG pH ABG pCO2 ABG pO2 ABG HCO3 ABG Total CO2 ABG O2 Saturation Sodium Potassium Chloride Carbon Dioxide BUN Creatinine Glucose POC Glucose (mg/dL) 210 H 136 H Hemoglobin A1c Plasma Lactic Acid Perez Calcium Ionized Calcium Abran Phosphorus Magnesium Troponin I Albumin 03/19/19 03/19/19 03/19/19 20:18 21:55 23:47 WBC RBC Hgb Hct Neutrophils # Neutrophils # (Manual) Lymphocytes # Lymphocytes # (Manual) Monocytes # Monocytes # (Manual) Basophils # APTT 86.1 H ABG pH ABG pCO2 ABG pO2 ABG HCO3 ABG Total CO2 ABG O2 Saturation Sodium Potassium Chloride Carbon Dioxide BUN Creatinine Glucose POC Glucose (mg/dL) 101 H 183 H Hemoglobin A1c Plasma Lactic Acid Perez Calcium Ionized Calcium Abran Phosphorus Magnesium Troponin I Albumin 03/20/19 03/20/19 03/20/19 00:00 04:00 04:08 WBC 12.8 H RBC Hgb Hct Neutrophils # Neutrophils # (Manual) 11.00 H Lymphocytes # Lymphocytes # (Manual) 0.38 L Monocytes # Monocytes # (Manual) 1.28 H Basophils # APTT ABG pH ABG pCO2 ABG pO2 ABG HCO3 ABG Total CO2 ABG O2 Saturation Sodium Potassium Chloride Carbon Dioxide BUN Creatinine Glucose POC Glucose (mg/dL) 204 H 236 H Hemoglobin A1c Plasma Lactic Acid Perez Calcium Ionized Calcium Abran Phosphorus Magnesium Troponin I Albumin 03/20/19 03/20/19 03/20/19 04:08 04:08 09:39 WBC RBC Hgb Hct Neutrophils # Neutrophils # (Manual) Lymphocytes # Lymphocytes # (Manual) Monocytes # Monocytes # (Manual) Basophils # APTT 72.7 H ABG pH ABG pCO2 ABG pO2 ABG HCO3 ABG Total CO2 ABG O2 Saturation Sodium 135 L Potassium Chloride 92 L Carbon Dioxide BUN 55 H Creatinine 2.26 H Glucose 235 H POC Glucose (mg/dL) 297 H Hemoglobin A1c Plasma Lactic Acid Perez Calcium Ionized Calcium Abran Phosphorus Magnesium Troponin I Albumin 03/20/19 03/20/19 03/20/19 10:32 11:18 11:51 WBC RBC Hgb Hct Neutrophils # Neutrophils # (Manual) Lymphocytes # Lymphocytes # (Manual) Monocytes # Monocytes # (Manual) Basophils # APTT ABG pH ABG pCO2 ABG pO2 ABG HCO3 ABG Total CO2 ABG O2 Saturation Sodium Potassium Chloride Carbon Dioxide BUN Creatinine Glucose POC Glucose (mg/dL) 268 H 252 H 211 H Hemoglobin A1c Plasma Lactic Acid Perez Calcium Ionized Calcium Abran Phosphorus Magnesium Troponin I Albumin 03/20/19 03/20/19 03/20/19 13:09 13:58 15:03 WBC RBC Hgb Hct Neutrophils # Neutrophils # (Manual) Lymphocytes # Lymphocytes # (Manual) Monocytes # Monocytes # (Manual) Basophils # APTT ABG pH ABG pCO2 ABG pO2 ABG HCO3 ABG Total CO2 ABG O2 Saturation Sodium Potassium Chloride Carbon Dioxide BUN Creatinine Glucose POC Glucose (mg/dL) 165 H 125 H Hemoglobin A1c Plasma Lactic Acid Perez 2.8 H* Calcium Ionized Calcium Abran Phosphorus Magnesium Troponin I Albumin 03/20/19 03/20/19 03/20/19 15:58 17:22 18:17 WBC RBC Hgb Hct Neutrophils # Neutrophils # (Manual) Lymphocytes # Lymphocytes # (Manual) Monocytes # Monocytes # (Manual) Basophils # APTT ABG pH ABG pCO2 ABG pO2 ABG HCO3 ABG Total CO2 ABG O2 Saturation Sodium Potassium Chloride Carbon Dioxide BUN Creatinine Glucose POC Glucose (mg/dL) 125 H 142 H 168 H Hemoglobin A1c Plasma Lactic Acid Perez Calcium Ionized Calcium Abran Phosphorus Magnesium Troponin I Albumin 03/20/19 03/20/19 03/20/19 19:04 20:04 20:12 WBC RBC Hgb Hct Neutrophils # Neutrophils # (Manual) Lymphocytes # Lymphocytes # (Manual) Monocytes # Monocytes # (Manual) Basophils # APTT ABG pH ABG pCO2 ABG pO2 ABG HCO3 ABG Total CO2 ABG O2 Saturation Sodium Potassium Chloride Carbon Dioxide BUN Creatinine Glucose POC Glucose (mg/dL) 158 H 148 H 133 H Hemoglobin A1c Plasma Lactic Acid Perez Calcium Ionized Calcium Abran Phosphorus Magnesium Troponin I Albumin 03/20/19 03/20/19 03/20/19 20:57 21:57 23:12 WBC RBC Hgb Hct Neutrophils # Neutrophils # (Manual) Lymphocytes # Lymphocytes # (Manual) Monocytes # Monocytes # (Manual) Basophils # APTT ABG pH ABG pCO2 ABG pO2 ABG HCO3 ABG Total CO2 ABG O2 Saturation Sodium Potassium Chloride Carbon Dioxide BUN Creatinine Glucose POC Glucose (mg/dL) 123 H 113 H 128 H Hemoglobin A1c Plasma Lactic Acid Preez Calcium Ionized Calcium Abran Phosphorus Magnesium Troponin I Albumin 03/21/19 03/21/19 03/21/19 01:00 03:09 05:13 WBC 17.1 H RBC 4.12 L Hgb 11.3 L Hct 36.0 L Neutrophils # 15.2 H Neutrophils # (Manual) Lymphocytes # 0.4 L Lymphocytes # (Manual) Monocytes # 1.1 H Monocytes # (Manual) Basophils # APTT ABG pH ABG pCO2 ABG pO2 ABG HCO3 ABG Total CO2 ABG O2 Saturation Sodium Potassium Chloride Carbon Dioxide BUN Creatinine Glucose POC Glucose (mg/dL) 119 H 120 H Hemoglobin A1c Plasma Lactic Acid Perez Calcium Ionized Calcium Abran Phosphorus Magnesium Troponin I Albumin 03/21/19 03/21/19 03/21/19 05:13 05:13 05:34 WBC RBC Hgb Hct Neutrophils # Neutrophils # (Manual) Lymphocytes # Lymphocytes # (Manual) Monocytes # Monocytes # (Manual) Basophils # APTT 90.9 H ABG pH ABG pCO2 ABG pO2 ABG HCO3 ABG Total CO2 ABG O2 Saturation Sodium 136 L Potassium Chloride Carbon Dioxide BUN 70 H Creatinine 2.81 H Glucose 139 H POC Glucose (mg/dL) 137 H Hemoglobin A1c Plasma Lactic Acid Perez Calcium 7.8 L Ionized Calcium Abran Phosphorus Magnesium Troponin I Albumin 03/21/19 03/21/19 03/21/19 07:56 11:24 11:24 WBC RBC Hgb Hct Neutrophils # Neutrophils # (Manual) Lymphocytes # Lymphocytes # (Manual) Monocytes # Monocytes # (Manual) Basophils # APTT 39.4 H ABG pH ABG pCO2 ABG pO2 ABG HCO3 ABG Total CO2 ABG O2 Saturation Sodium Potassium Chloride Carbon Dioxide BUN Creatinine Glucose POC Glucose (mg/dL) 157 H Hemoglobin A1c Plasma Lactic Acid Perez Calcium Ionized Calcium Abran 4.1 L Phosphorus 5.3 H Magnesium 2.4 H Troponin I Albumin 2.6 L 03/21/19 03/21/19 03/21/19 11:58 13:45 15:48 WBC RBC Hgb Hct Neutrophils # Neutrophils # (Manual) Lymphocytes # Lymphocytes # (Manual) Monocytes # Monocytes # (Manual) Basophils # APTT ABG pH ABG pCO2 49 H ABG pO2 126 H ABG HCO3 28 H 28 H ABG Total CO2 29 H ABG O2 Saturation 98.4 H Sodium Potassium Chloride Carbon Dioxide BUN Creatinine Glucose POC Glucose (mg/dL) 177 H Hemoglobin A1c Plasma Lactic Acid Perez Calcium Ionized Calcium Abran Phosphorus Magnesium Troponin I Albumin 03/21/19 03/21/19 03/21/19 16:01 20:02 20:54 WBC RBC Hgb Hct Neutrophils # Neutrophils # (Manual) Lymphocytes # Lymphocytes # (Manual) Monocytes # Monocytes # (Manual) Basophils # APTT ABG pH ABG pCO2 ABG pO2 ABG HCO3 ABG Total CO2 ABG O2 Saturation Sodium Potassium Chloride Carbon Dioxide BUN Creatinine Glucose POC Glucose (mg/dL) 170 H 274 H 269 H Hemoglobin A1c Plasma Lactic Acid Perez Calcium Ionized Calcium Abran Phosphorus Magnesium Troponin I Albumin 03/21/19 03/21/19 03/22/19 22:00 23:26 00:07 WBC RBC Hgb Hct Neutrophils # Neutrophils # (Manual) Lymphocytes # Lymphocytes # (Manual) Monocytes # Monocytes # (Manual) Basophils # APTT ABG pH ABG pCO2 ABG pO2 ABG HCO3 ABG Total CO2 ABG O2 Saturation Sodium Potassium Chloride Carbon Dioxide BUN Creatinine Glucose POC Glucose (mg/dL) 299 H 253 H 289 H Hemoglobin A1c Plasma Lactic Acid Perez Calcium Ionized Calcium Abran Phosphorus Magnesium Troponin I Albumin 03/22/19 03/22/19 03/22/19 01:23 02:16 03:00 WBC RBC Hgb Hct Neutrophils # Neutrophils # (Manual) Lymphocytes # Lymphocytes # (Manual) Monocytes # Monocytes # (Manual) Basophils # APTT ABG pH ABG pCO2 ABG pO2 ABG HCO3 ABG Total CO2 ABG O2 Saturation Sodium Potassium Chloride Carbon Dioxide BUN Creatinine Glucose POC Glucose (mg/dL) 216 H 215 H 195 H Hemoglobin A1c Plasma Lactic Acid Perez Calcium Ionized Calcium Abran Phosphorus Magnesium Troponin I Albumin 03/22/19 03/22/19 03/22/19 04:07 04:53 04:59 WBC RBC Hgb Hct Neutrophils # Neutrophils # (Manual) Lymphocytes # Lymphocytes # (Manual) Monocytes # Monocytes # (Manual) Basophils # APTT ABG pH 7.46 H ABG pCO2 ABG pO2 ABG HCO3 28 H ABG Total CO2 29 H ABG O2 Saturation Sodium Potassium Chloride Carbon Dioxide BUN Creatinine Glucose POC Glucose (mg/dL) 170 H 162 H Hemoglobin A1c Plasma Lactic Acid Perez Calcium Ionized Calcium Abran Phosphorus Magnesium Troponin I Albumin 03/22/19 03/22/19 03/22/19 05:30 05:30 05:59 WBC 19.3 H RBC 3.55 L Hgb 10.0 L Hct 30.5 L Neutrophils # 17.6 H Neutrophils # (Manual) Lymphocytes # 0.1 L Lymphocytes # (Manual) Monocytes # Monocytes # (Manual) Basophils # 0.3 H APTT ABG pH ABG pCO2 ABG pO2 ABG HCO3 ABG Total CO2 ABG O2 Saturation Sodium Potassium 3.1 L Chloride Carbon Dioxide BUN 71 H Creatinine 2.64 H Glucose 148 H POC Glucose (mg/dL) 140 H Hemoglobin A1c Plasma Lactic Acid Perez Calcium 7.5 L Ionized Calcium Abran Phosphorus Magnesium Troponin I Albumin 03/22/19 03/22/19 03/22/19 07:13 08:59 10:01 WBC RBC Hgb Hct Neutrophils # Neutrophils # (Manual) Lymphocytes # Lymphocytes # (Manual) Monocytes # Monocytes # (Manual) Basophils # APTT ABG pH ABG pCO2 ABG pO2 ABG HCO3 ABG Total CO2 ABG O2 Saturation Sodium Potassium Chloride Carbon Dioxide BUN Creatinine Glucose POC Glucose (mg/dL) 109 H 153 H 180 H Hemoglobin A1c Plasma Lactic Acid Perez Calcium Ionized Calcium Abran Phosphorus Magnesium Troponin I Albumin 03/22/19 03/22/19 03/22/19 11:10 12:00 12:04 WBC RBC Hgb Hct Neutrophils # Neutrophils # (Manual) Lymphocytes # Lymphocytes # (Manual) Monocytes # Monocytes # (Manual) Basophils # APTT ABG pH ABG pCO2 ABG pO2 ABG HCO3 ABG Total CO2 ABG O2 Saturation Sodium Potassium 3.4 L Chloride Carbon Dioxide BUN Creatinine Glucose POC Glucose (mg/dL) 184 H 184 H Hemoglobin A1c Plasma Lactic Acid Perez Calcium Ionized Calcium Abran Phosphorus Magnesium Troponin I Albumin 03/22/19 03/22/19 03/22/19 13:55 15:40 16:52 WBC RBC Hgb Hct Neutrophils # Neutrophils # (Manual) Lymphocytes # Lymphocytes # (Manual) Monocytes # Monocytes # (Manual) Basophils # APTT ABG pH ABG pCO2 ABG pO2 ABG HCO3 ABG Total CO2 ABG O2 Saturation Sodium Potassium Chloride Carbon Dioxide BUN Creatinine Glucose POC Glucose (mg/dL) 125 H 121 H 111 H Hemoglobin A1c Plasma Lactic Acid Perez Calcium Ionized Calcium Abran Phosphorus Magnesium Troponin I Albumin 03/22/19 03/22/19 03/22/19 18:09 19:40 20:18 WBC RBC Hgb Hct Neutrophils # Neutrophils # (Manual) Lymphocytes # Lymphocytes # (Manual) Monocytes # Monocytes # (Manual) Basophils # APTT ABG pH ABG pCO2 ABG pO2 ABG HCO3 ABG Total CO2 ABG O2 Saturation Sodium Potassium Chloride Carbon Dioxide BUN Creatinine Glucose POC Glucose (mg/dL) 119 H 117 H 118 H Hemoglobin A1c Plasma Lactic Acid Perez Calcium Ionized Calcium Abran Phosphorus Magnesium Troponin I Albumin 03/22/19 03/22/19 03/22/19 20:28 21:30 22:08 WBC RBC Hgb Hct Neutrophils # Neutrophils # (Manual) Lymphocytes # Lymphocytes # (Manual) Monocytes # Monocytes # (Manual) Basophils # APTT 38.6 H ABG pH ABG pCO2 ABG pO2 ABG HCO3 ABG Total CO2 ABG O2 Saturation Sodium Potassium Chloride Carbon Dioxide BUN Creatinine Glucose POC Glucose (mg/dL) 120 H 140 H Hemoglobin A1c Plasma Lactic Acid Perez Calcium Ionized Calcium Abran Phosphorus Magnesium Troponin I Albumin 03/22/19 03/22/19 03/23/19 23:12 23:58 00:58 WBC RBC Hgb Hct Neutrophils # Neutrophils # (Manual) Lymphocytes # Lymphocytes # (Manual) Monocytes # Monocytes # (Manual) Basophils # APTT ABG pH ABG pCO2 ABG pO2 ABG HCO3 ABG Total CO2 ABG O2 Saturation Sodium Potassium Chloride Carbon Dioxide BUN Creatinine Glucose POC Glucose (mg/dL) 153 H 166 H 135 H Hemoglobin A1c Plasma Lactic Acid Perez Calcium Ionized Calcium Abran Phosphorus Magnesium Troponin I Albumin 03/23/19 03/23/19 03/23/19 02:02 03:04 04:25 WBC RBC Hgb Hct Neutrophils # Neutrophils # (Manual) Lymphocytes # Lymphocytes # (Manual) Monocytes # Monocytes # (Manual) Basophils # APTT ABG pH ABG pCO2 ABG pO2 ABG HCO3 ABG Total CO2 ABG O2 Saturation Sodium Potassium Chloride Carbon Dioxide BUN Creatinine Glucose POC Glucose (mg/dL) 141 H 179 H 182 H Hemoglobin A1c Plasma Lactic Acid Perez Calcium Ionized Calcium Abran Phosphorus Magnesium Troponin I Albumin 03/23/19 03/23/19 03/23/19 05:08 05:26 05:50 WBC RBC Hgb Hct Neutrophils # Neutrophils # (Manual) Lymphocytes # Lymphocytes # (Manual) Monocytes # Monocytes # (Manual) Basophils # APTT ABG pH ABG pCO2 ABG pO2 125 H ABG HCO3 ABG Total CO2 27 H ABG O2 Saturation 99.0 H Sodium 136 L Potassium 3.4 L Chloride Carbon Dioxide BUN 66 H Creatinine 2.10 H Glucose 155 H POC Glucose (mg/dL) 170 H Hemoglobin A1c Plasma Lactic Acid Perez Calcium 7.4 L Ionized Calcium Abran Phosphorus Magnesium Troponin I Albumin 03/23/19 03/23/19 03/23/19 05:50 05:50 06:11 WBC 21.2 H RBC 3.32 L Hgb 9.4 L Hct 28.7 L Neutrophils # 19.4 H Neutrophils # (Manual) Lymphocytes # 0.5 L Lymphocytes # (Manual) Monocytes # Monocytes # (Manual) Basophils # APTT 52.4 H ABG pH ABG pCO2 ABG pO2 ABG HCO3 ABG Total CO2 ABG O2 Saturation Sodium Potassium Chloride Carbon Dioxide BUN Creatinine Glucose POC Glucose (mg/dL) 157 H Hemoglobin A1c Plasma Lactic Acid Perez Calcium Ionized Calcium Abran Phosphorus Magnesium Troponin I Albumin 03/23/19 03/23/19 03/23/19 06:58 07:55 10:13 WBC RBC Hgb Hct Neutrophils # Neutrophils # (Manual) Lymphocytes # Lymphocytes # (Manual) Monocytes # Monocytes # (Manual) Basophils # APTT ABG pH ABG pCO2 ABG pO2 ABG HCO3 ABG Total CO2 ABG O2 Saturation Sodium Potassium Chloride Carbon Dioxide BUN Creatinine Glucose POC Glucose (mg/dL) 159 H 162 H 180 H Hemoglobin A1c Plasma Lactic Acid Perez Calcium Ionized Calcium Abran Phosphorus Magnesium Troponin I Albumin 03/23/19 03/23/19 03/23/19 11:43 13:07 14:03 WBC RBC Hgb Hct Neutrophils # Neutrophils # (Manual) Lymphocytes # Lymphocytes # (Manual) Monocytes # Monocytes # (Manual) Basophils # APTT ABG pH ABG pCO2 ABG pO2 ABG HCO3 ABG Total CO2 ABG O2 Saturation Sodium Potassium Chloride Carbon Dioxide BUN Creatinine Glucose POC Glucose (mg/dL) 181 H 171 H 163 H Hemoglobin A1c Plasma Lactic Acid Perez Calcium Ionized Calcium Abran Phosphorus Magnesium Troponin I Albumin 03/23/19 03/23/19 03/23/19 16:00 18:07 19:54 WBC RBC Hgb Hct Neutrophils # Neutrophils # (Manual) Lymphocytes # Lymphocytes # (Manual) Monocytes # Monocytes # (Manual) Basophils # APTT ABG pH ABG pCO2 ABG pO2 ABG HCO3 ABG Total CO2 ABG O2 Saturation Sodium Potassium Chloride Carbon Dioxide BUN Creatinine Glucose POC Glucose (mg/dL) 152 H 149 H 133 H Hemoglobin A1c Plasma Lactic Acid Perez Calcium Ionized Calcium Abran Phosphorus Magnesium Troponin I Albumin 03/23/19 03/23/19 03/24/19 22:05 23:58 02:09 WBC RBC Hgb Hct Neutrophils # Neutrophils # (Manual) Lymphocytes # Lymphocytes # (Manual) Monocytes # Monocytes # (Manual) Basophils # APTT ABG pH ABG pCO2 ABG pO2 ABG HCO3 ABG Total CO2 ABG O2 Saturation Sodium Potassium Chloride Carbon Dioxide BUN Creatinine Glucose POC Glucose (mg/dL) 194 H 203 H 210 H Hemoglobin A1c Plasma Lactic Acid Perez Calcium Ionized Calcium Abran Phosphorus Magnesium Troponin I Albumin 03/24/19 03/24/19 03/24/19 03:58 04:25 05:57 WBC RBC Hgb Hct Neutrophils # Neutrophils # (Manual) Lymphocytes # Lymphocytes # (Manual) Monocytes # Monocytes # (Manual) Basophils # APTT ABG pH 7.47 H ABG pCO2 34 L ABG pO2 ABG HCO3 ABG Total CO2 ABG O2 Saturation 98.0 H Sodium Potassium Chloride Carbon Dioxide BUN Creatinine Glucose POC Glucose (mg/dL) 154 H 144 H Hemoglobin A1c Plasma Lactic Acid Perez Calcium Ionized Calcium Abran Phosphorus Magnesium Troponin I Albumin 03/24/19 03/24/19 03/24/19 07:23 07:23 07:23 WBC 17.9 H RBC 3.33 L Hgb 9.4 L Hct 28.7 L Neutrophils # 16.4 H Neutrophils # (Manual) Lymphocytes # 0.5 L Lymphocytes # (Manual) Monocytes # Monocytes # (Manual) Basophils # APTT 36.6 H ABG pH ABG pCO2 ABG pO2 ABG HCO3 ABG Total CO2 ABG O2 Saturation Sodium Potassium Chloride Carbon Dioxide BUN 67 H Creatinine 1.84 H Glucose POC Glucose (mg/dL) Hemoglobin A1c Plasma Lactic Acid Perez Calcium 7.9 L Ionized Calcium Abran Phosphorus Magnesium Troponin I Albumin 03/24/19 03/24/19 03/24/19 07:23 09:00 11:09 WBC RBC Hgb Hct Neutrophils # Neutrophils # (Manual) Lymphocytes # Lymphocytes # (Manual) Monocytes # Monocytes # (Manual) Basophils # APTT ABG pH ABG pCO2 ABG pO2 ABG HCO3 ABG Total CO2 ABG O2 Saturation Sodium Potassium Chloride Carbon Dioxide BUN Creatinine Glucose POC Glucose (mg/dL) 103 H 154 H 201 H Hemoglobin A1c Plasma Lactic Acid Perez Calcium Ionized Calcium Abran Phosphorus Magnesium Troponin I Albumin 03/24/19 03/24/19 03/24/19 11:59 13:03 14:05 WBC RBC Hgb Hct Neutrophils # Neutrophils # (Manual) Lymphocytes # Lymphocytes # (Manual) Monocytes # Monocytes # (Manual) Basophils # APTT ABG pH ABG pCO2 ABG pO2 ABG HCO3 ABG Total CO2 ABG O2 Saturation Sodium Potassium Chloride Carbon Dioxide BUN Creatinine Glucose POC Glucose (mg/dL) 215 H 212 H 214 H Hemoglobin A1c Plasma Lactic Acid Perez Calcium Ionized Calcium Abran Phosphorus Magnesium Troponin I Albumin 03/24/19 03/24/19 03/24/19 15:06 15:06 16:00 WBC RBC Hgb Hct Neutrophils # Neutrophils # (Manual) Lymphocytes # Lymphocytes # (Manual) Monocytes # Monocytes # (Manual) Basophils # APTT 57.0 H ABG pH ABG pCO2 ABG pO2 ABG HCO3 ABG Total CO2 ABG O2 Saturation Sodium Potassium Chloride Carbon Dioxide BUN Creatinine Glucose POC Glucose (mg/dL) 175 H 153 H Hemoglobin A1c Plasma Lactic Acid Perez Calcium Ionized Calcium Abran Phosphorus Magnesium Troponin I Albumin 03/24/19 03/24/19 03/24/19 17:10 18:01 18:56 WBC RBC Hgb Hct Neutrophils # Neutrophils # (Manual) Lymphocytes # Lymphocytes # (Manual) Monocytes # Monocytes # (Manual) Basophils # APTT ABG pH ABG pCO2 ABG pO2 ABG HCO3 ABG Total CO2 ABG O2 Saturation Sodium Potassium Chloride Carbon Dioxide BUN Creatinine Glucose POC Glucose (mg/dL) 142 H 134 H 124 H Hemoglobin A1c Plasma Lactic Acid Perez Calcium Ionized Calcium Abran Phosphorus Magnesium Troponin I Albumin 03/24/19 03/24/19 03/24/19 20:10 22:05 23:01 WBC RBC Hgb Hct Neutrophils # Neutrophils # (Manual) Lymphocytes # Lymphocytes # (Manual) Monocytes # Monocytes # (Manual) Basophils # APTT ABG pH ABG pCO2 ABG pO2 ABG HCO3 ABG Total CO2 ABG O2 Saturation Sodium Potassium Chloride Carbon Dioxide BUN Creatinine Glucose POC Glucose (mg/dL) 139 H 182 H 222 H Hemoglobin A1c Plasma Lactic Acid Perez Calcium Ionized Calcium Abran Phosphorus Magnesium Troponin I Albumin 03/24/19 03/25/19 03/25/19 23:54 01:01 02:05 WBC RBC Hgb Hct Neutrophils # Neutrophils # (Manual) Lymphocytes # Lymphocytes # (Manual) Monocytes # Monocytes # (Manual) Basophils # APTT ABG pH ABG pCO2 ABG pO2 ABG HCO3 ABG Total CO2 ABG O2 Saturation Sodium Potassium Chloride Carbon Dioxide BUN Creatinine Glucose POC Glucose (mg/dL) 221 H 229 H 201 H Hemoglobin A1c Plasma Lactic Acid Perez Calcium Ionized Calcium Abran Phosphorus Magnesium Troponin I Albumin 03/25/19 03/25/19 03/25/19 03:17 04:03 05:13 WBC RBC Hgb Hct Neutrophils # Neutrophils # (Manual) Lymphocytes # Lymphocytes # (Manual) Monocytes # Monocytes # (Manual) Basophils # APTT ABG pH ABG pCO2 ABG pO2 ABG HCO3 ABG Total CO2 ABG O2 Saturation Sodium Potassium Chloride Carbon Dioxide BUN Creatinine Glucose POC Glucose (mg/dL) 171 H 153 H 139 H Hemoglobin A1c Plasma Lactic Acid Perez Calcium Ionized Calcium Abran Phosphorus Magnesium Troponin I Albumin 03/25/19 03/25/19 03/25/19 05:20 05:20 05:20 WBC 20.8 H RBC 3.18 L Hgb 8.9 L Hct 27.6 L Neutrophils # 19.1 H Neutrophils # (Manual) Lymphocytes # 0.5 L Lymphocytes # (Manual) Monocytes # Monocytes # (Manual) Basophils # APTT 52.8 H ABG pH ABG pCO2 ABG pO2 ABG HCO3 ABG Total CO2 ABG O2 Saturation Sodium Potassium Chloride Carbon Dioxide BUN 67 H Creatinine 1.86 H Glucose 131 H POC Glucose (mg/dL) Hemoglobin A1c Plasma Lactic Acid Perez Calcium 7.8 L Ionized Calcium Abran Phosphorus Magnesium Troponin I Albumin 03/25/19 03/25/19 03/25/19 05:42 06:10 07:04 WBC RBC Hgb Hct Neutrophils # Neutrophils # (Manual) Lymphocytes # Lymphocytes # (Manual) Monocytes # Monocytes # (Manual) Basophils # APTT ABG pH ABG pCO2 ABG pO2 ABG HCO3 ABG Total CO2 25 H ABG O2 Saturation 97.6 H Sodium Potassium Chloride Carbon Dioxide BUN Creatinine Glucose POC Glucose (mg/dL) 131 H 144 H Hemoglobin A1c Plasma Lactic Acid Perez Calcium Ionized Calcium Abran Phosphorus Magnesium Troponin I Albumin 03/25/19 03/25/19 03/25/19 07:29 08:15 08:57 WBC RBC Hgb Hct Neutrophils # Neutrophils # (Manual) Lymphocytes # Lymphocytes # (Manual) Monocytes # Monocytes # (Manual) Basophils # APTT ABG pH ABG pCO2 ABG pO2 ABG HCO3 ABG Total CO2 ABG O2 Saturation Sodium Potassium Chloride Carbon Dioxide BUN Creatinine Glucose POC Glucose (mg/dL) 166 H 172 H 178 H Hemoglobin A1c Plasma Lactic Acid Perez Calcium Ionized Calcium Abran Phosphorus Magnesium Troponin I Albumin 03/25/19 03/25/19 03/25/19 10:10 11:11 13:45 WBC RBC Hgb Hct Neutrophils # Neutrophils # (Manual) Lymphocytes # Lymphocytes # (Manual) Monocytes # Monocytes # (Manual) Basophils # APTT ABG pH ABG pCO2 ABG pO2 ABG HCO3 ABG Total CO2 ABG O2 Saturation Sodium Potassium Chloride Carbon Dioxide BUN Creatinine Glucose POC Glucose (mg/dL) 172 H 142 H 141 H Hemoglobin A1c Plasma Lactic Acid Perez Calcium Ionized Calcium Abran Phosphorus Magnesium Troponin I Albumin 03/25/19 03/25/19 03/25/19 15:50 17:03 18:12 WBC RBC Hgb Hct Neutrophils # Neutrophils # (Manual) Lymphocytes # Lymphocytes # (Manual) Monocytes # Monocytes # (Manual) Basophils # APTT ABG pH ABG pCO2 ABG pO2 ABG HCO3 ABG Total CO2 ABG O2 Saturation Sodium Potassium Chloride Carbon Dioxide BUN Creatinine Glucose POC Glucose (mg/dL) 111 H 142 H 169 H Hemoglobin A1c Plasma Lactic Acid Perez Calcium Ionized Calcium Abran Phosphorus Magnesium Troponin I Albumin 03/25/19 03/25/19 03/26/19 19:04 21:05 00:10 WBC RBC Hgb Hct Neutrophils # Neutrophils # (Manual) Lymphocytes # Lymphocytes # (Manual) Monocytes # Monocytes # (Manual) Basophils # APTT ABG pH ABG pCO2 ABG pO2 ABG HCO3 ABG Total CO2 ABG O2 Saturation Sodium Potassium Chloride Carbon Dioxide BUN Creatinine Glucose POC Glucose (mg/dL) 188 H 160 H 127 H Hemoglobin A1c Plasma Lactic Acid Perez Calcium Ionized Calcium Abran Phosphorus Magnesium Troponin I Albumin 03/26/19 03/26/19 03/26/19 01:02 02:12 03:10 WBC RBC Hgb Hct Neutrophils # Neutrophils # (Manual) Lymphocytes # Lymphocytes # (Manual) Monocytes # Monocytes # (Manual) Basophils # APTT ABG pH ABG pCO2 ABG pO2 ABG HCO3 ABG Total CO2 ABG O2 Saturation Sodium Potassium Chloride Carbon Dioxide BUN Creatinine Glucose POC Glucose (mg/dL) 144 H 143 H 142 H Hemoglobin A1c Plasma Lactic Acid Perez Calcium Ionized Calcium Abran Phosphorus Magnesium Troponin I Albumin 03/26/19 03/26/19 03/26/19 04:59 05:30 05:30 WBC 19.9 H RBC 3.11 L Hgb 8.5 L Hct 27.4 L Neutrophils # 17.7 H Neutrophils # (Manual) Lymphocytes # 0.5 L Lymphocytes # (Manual) Monocytes # 1.3 H Monocytes # (Manual) Basophils # APTT ABG pH ABG pCO2 ABG pO2 ABG HCO3 ABG Total CO2 ABG O2 Saturation Sodium Potassium 5.2 H Chloride 109 H Carbon Dioxide BUN 66 H Creatinine 1.85 H Glucose 128 H POC Glucose (mg/dL) 135 H Hemoglobin A1c Plasma Lactic Acid Perez Calcium 7.9 L Ionized Calcium Abran Phosphorus Magnesium Troponin I Albumin 03/26/19 03/26/19 03/26/19 05:59 07:55 08:13 WBC RBC Hgb Hct Neutrophils # Neutrophils # (Manual) Lymphocytes # Lymphocytes # (Manual) Monocytes # Monocytes # (Manual) Basophils # APTT ABG pH ABG pCO2 32 L ABG pO2 ABG HCO3 ABG Total CO2 ABG O2 Saturation 98.0 H Sodium Potassium Chloride Carbon Dioxide BUN Creatinine Glucose POC Glucose (mg/dL) 136 H 102 H Hemoglobin A1c Plasma Lactic Acid Perez Calcium Ionized Calcium Abran Phosphorus Magnesium Troponin I Albumin 03/26/19 03/26/19 03/26/19 11:29 12:39 13:07 WBC RBC Hgb Hct Neutrophils # Neutrophils # (Manual) Lymphocytes # Lymphocytes # (Manual) Monocytes # Monocytes # (Manual) Basophils # APTT ABG pH ABG pCO2 ABG pO2 ABG HCO3 ABG Total CO2 ABG O2 Saturation Sodium Potassium Chloride Carbon Dioxide BUN Creatinine Glucose POC Glucose (mg/dL) 216 H 224 H 225 H Hemoglobin A1c Plasma Lactic Acid Perez Calcium Ionized Calcium Abran Phosphorus Magnesium Troponin I Albumin 03/26/19 03/26/19 03/26/19 13:10 14:04 15:00 WBC RBC Hgb Hct Neutrophils # Neutrophils # (Manual) Lymphocytes # Lymphocytes # (Manual) Monocytes # Monocytes # (Manual) Basophils # APTT 54.5 H ABG pH ABG pCO2 ABG pO2 ABG HCO3 ABG Total CO2 ABG O2 Saturation Sodium Potassium Chloride Carbon Dioxide BUN Creatinine Glucose POC Glucose (mg/dL) 212 H 179 H Hemoglobin A1c Plasma Lactic Acid Perez Calcium Ionized Calcium Abran Phosphorus Magnesium Troponin I Albumin 1203/26/19 03/26/19 16:56 18:27 18:59 WBC RBC Hgb Hct Neutrophils # Neutrophils # (Manual) Lymphocytes # Lymphocytes # (Manual) Monocytes # Monocytes # (Manual) Basophils # APTT ABG pH ABG pCO2 ABG pO2 ABG HCO3 ABG Total CO2 ABG O2 Saturation Sodium Potassium Chloride Carbon Dioxide BUN Creatinine Glucose POC Glucose (mg/dL) 137 H 146 H 145 H Hemoglobin A1c Plasma Lactic Acid Perez Calcium Ionized Calcium Abran Phosphorus Magnesium Troponin I Albumin 03/26/19 03/26/19 03/27/19 21:13 22:51 00:36 WBC RBC Hgb Hct Neutrophils # Neutrophils # (Manual) Lymphocytes # Lymphocytes # (Manual) Monocytes # Monocytes # (Manual) Basophils # APTT ABG pH ABG pCO2 ABG pO2 ABG HCO3 ABG Total CO2 ABG O2 Saturation Sodium Potassium Chloride Carbon Dioxide BUN Creatinine Glucose POC Glucose (mg/dL) 147 H 128 H 147 H Hemoglobin A1c Plasma Lactic Acid Perez Calcium Ionized Calcium Abran Phosphorus Magnesium Troponin I Albumin 03/27/19 03/27/19 03/27/19 02:57 04:34 04:34 WBC RBC Hgb Hct Neutrophils # Neutrophils # (Manual) Lymphocytes # Lymphocytes # (Manual) Monocytes # Monocytes # (Manual) Basophils # APTT 64.9 H ABG pH ABG pCO2 ABG pO2 ABG HCO3 ABG Total CO2 ABG O2 Saturation Sodium Potassium 5.5 H Chloride 110 H Carbon Dioxide 19 L BUN 70 H Creatinine 1.83 H Glucose 215 H POC Glucose (mg/dL) 202 H Hemoglobin A1c Plasma Lactic Acid Perez Calcium 7.8 L Ionized Calcium Abran Phosphorus 4.9 H Magnesium Troponin I Albumin 03/27/19 03/27/19 03/27/19 04:34 05:14 06:21 WBC 21.5 H RBC 2.85 L Hgb 7.9 L Hct 24.3 L Neutrophils # Neutrophils # (Manual) Lymphocytes # Lymphocytes # (Manual) Monocytes # Monocytes # (Manual) Basophils # APTT ABG pH ABG pCO2 ABG pO2 ABG HCO3 ABG Total CO2 ABG O2 Saturation Sodium Potassium Chloride Carbon Dioxide BUN Creatinine Glucose POC Glucose (mg/dL) 211 H 207 H Hemoglobin A1c Plasma Lactic Acid Perez Calcium Ionized Calcium Abran Phosphorus Magnesium Troponin I Albumin 03/27/19 03/27/19 03/27/19 06:49 07:51 07:54 WBC RBC Hgb Hct Neutrophils # Neutrophils # (Manual) Lymphocytes # Lymphocytes # (Manual) Monocytes # Monocytes # (Manual) Basophils # APTT ABG pH ABG pCO2 29 L ABG pO2 73 L ABG HCO3 20 L ABG Total CO2 ABG O2 Saturation Sodium Potassium Chloride Carbon Dioxide BUN Creatinine Glucose POC Glucose (mg/dL) 228 H 180 H Hemoglobin A1c Plasma Lactic Acid Perez Calcium Ionized Calcium Abran Phosphorus Magnesium Troponin I Albumin 03/27/19 03/27/19 03/27/19 08:53 10:15 11:05 WBC RBC Hgb Hct Neutrophils # Neutrophils # (Manual) Lymphocytes # Lymphocytes # (Manual) Monocytes # Monocytes # (Manual) Basophils # APTT ABG pH ABG pCO2 ABG pO2 ABG HCO3 ABG Total CO2 ABG O2 Saturation Sodium Potassium Chloride Carbon Dioxide BUN Creatinine Glucose POC Glucose (mg/dL) 170 H 126 H 121 H Hemoglobin A1c Plasma Lactic Acid Perez Calcium Ionized Calcium Abran Phosphorus Magnesium Troponin I Albumin 03/27/19 11:52 WBC RBC Hgb Hct Neutrophils # Neutrophils # (Manual) Lymphocytes # Lymphocytes # (Manual) Monocytes # Monocytes # (Manual) Basophils # APTT ABG pH ABG pCO2 ABG pO2 ABG HCO3 ABG Total CO2 ABG O2 Saturation Sodium Potassium Chloride Carbon Dioxide BUN Creatinine Glucose POC Glucose (mg/dL) 119 H Hemoglobin A1c Plasma Lactic Acid Perez Calcium Ionized Calcium Abran Phosphorus Magnesium Troponin I Albumin Assessment and Plan Assessment: * Altered mental status, likely related to toxic metabolic encephalopathy. * Status post acute [place] * Status post laparotomy for ischemic bowel on 02/19/2019. * Ventilator-dependent respiratory failure on mechanical ventilation * Atrial fibrillation, on anticoagulation with IV heparin. 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 * COPD * Atherosclerotic cerebrovascular disease * Acute renal failure, with polycystic kidney disease * Anemia Plan: * Patient apparently seems to have severe toxic metabolic encephalopathy. We will check EEG to evaluate for the degree of encephalopathy. * Prognosis mainly depends upon underlying other medical and surgical conditions. * Computed tomography scan of head was reviewed, which revealed small vessel disease with no acute process. * Your medical management. * We will follow clinically.
[2019-03-27] MEDS: DILTIAZEM 125 MG in SODIUM CHLORIDE 0.9% 100 ML IV SCH (13:50)
[2019-03-27 13:54] LABS: Glucose,Whole Blood 182 mg/dL (75-99)
[2019-03-27 15:07] LABS: Glucose,Whole Blood 193 mg/dL (75-99)
[2019-03-27 16:01] LABS: Glucose,Whole Blood 213 mg/dL (75-99)
--- NOTE | 2019-03-27 16:12 | P.PN ---
Subjective Patient is status post laparotomy for a small wall ischemia consider necrosis. The patient the surgical risk is very high as it wasn't emergent surgery patient underwent surgery and patient is presently intubated patient in shock broad- spectrum antibiotics patient on propofol and norepinephrine. Patient was having a low-grade temperatures and patient is presently receiving TPN for nutritional support. Patient has colostomy as well patient has a major three-vessel disease and patient was in A. fib patient of the proximal A. fib presently on amiodarone wasn't is sinus rhythm was sinus tachycardia. Does have history of chronic kidney disease stage III from polycystic kidney 03/23/2019 No significant change in clinical condition patient remains on norepinephrine remains intubated. Patient urine output is good patient remains on normal saline at 100 mL per hour. 03/24/2019 Patient is bit more awake today weaning of sedation although patient did undergo spontaneous breathing trial yet today. Patient is still on norepinephrine, IV h eparin, IV normal saline which is cut down to 20 mL now patient actually received Lasix with the good urine output. 03/25/2019 Patient is norepinephrine is being weaned off, patient is presently receiving IV Lasix patient has small left pleural effusion creatinine although improved to 1.86 sedation is being discontinued and patient will undergo weaning trial. 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 CAT scan didn't show any intracranial bleed but sed rate cannot rule out subacute ischemia and recommended an MRI and neurology was subsequently consulted. Patient is still on norepinephrine, heparin drip and insulin drip. Not sure patient will need to continue the antibiotics will discuss with infectious disease 03/27/2019 Patient remains mechanically intubated patient is not responding well in spite of aggressive therapy considering his age and overall medical problems probably hospice and comfort care is more appropriate choice. Neurology is evaluating the patient. EEG is being will be obtained patient remains on propofol occasionally breathing over the ventilator patient does have cough reflex gag reflex. Review of systems: Unable to obtain due to his clinical condition All inpatient medications were reviewed and appropriate changes in these medications as dictated in the interval history and assessment and plan. Objective - Vital Signs Vital signs: Vital Signs Temp 99 F 03/27/19 12:00 Pulse 118 H 03/27/19 15:40 Resp 28 H 12/25/19 12:15 BP 103/58 03/27/19 12:15 Pulse Ox 96 03/27/19 12:15 Intake & Output 03/26/19 03/27/19 03/27/19 18:59 06:59 18:59 Intake Total 2126.722 1156.553 700.709 Output Total 2205 1730 875 Balance -898.528 -410.447 -174.291 Weight 82 kg 83.5 kg Intake: IV 1070 854 359 .9 110 160 10 Piperacillin-Tazobactam 3 100 100 .375 gm In Sodium Chloride 0.9% 100 ml @ 25 mls/hr IVPB Q8H [facility] Rx#: [id number] TPN 860 694 249 Intake, IV Titration 236.472 465.553 188.709 Amount Heparin Sod,Pork in 0.45% 130.353 222.337 84.615 NaCl 25,000 unit In 0.45 % NaCl 1 250ml.bag @ 12 UNITS/KG/HR 8.712 mls/hr IV .Q24H [facility] Rx#: [id number] Insulin Regular 100 unit 84.479 65.760 36.916 In Sodium Chloride 0.9% 100 ml @ Per Protocol IV .Q0M [facility] Rx#:[id number] Norepinephrine 8 mg In 58.280 33.778 Sodium Chloride 0.9% 250 ml @ 0.05 MCG/KG/MIN 7.44 mls/hr IV .Q24H [facility] Rx#: [id number] Propofol 1,000 mg In 21.64 119.176 33.400 Empty Bag 1 bag @ Titrate IV .Q0M [facility] Rx#: [id number] Tube Feeding 123 Other 30 Output: Urine 1055 1430 875 Stool 1150 300 Other: Voiding Method Indwelling Catheter Indwelling Catheter ABP, PAP, CO, CI - Last Documented Arterial Blood Pressure 97/46 - Exam PHYSICAL EXAMINATION: GENERAL: Intubated sedated, fully catheter in place HEENT: Pupils are round and equally reacting to light. EOMI. No scleral icterus. No conjunctival pallor. Normocephalic, atraumatic. No pharyngeal erythema. No thyromegaly. CARDIOVASCULAR: S1 and S2 present. No murmurs, rubs, or gallops. Tachycardic PULMONARY: Bilateral expiratory wheezing was appreciated ABDOMEN: Bowel sounds are absent jejunostomy tube in patient is also on total parenteral nutrition MUSCULOSKELETAL: No joint swelling or deformity. EXTREMITIES: No cyanosis, clubbing, or pedal edema. NEUROLOGICAL: Gross neurological examination did not reveal any focal deficits. SKIN: No rashes. - Labs CBC & Chem 7: 03/27/19 04:34 03/27/19 04:34 Labs: Abnormal Lab Results - Last 24 Hours (Table) 03/26/19 03/26/19 03/26/19 Range/Units 16:56 18:27 18:59 WBC (3.8-10.6) k/uL RBC (4.30-5.90) m/uL Hgb (13.0-17.5) gm/dL Hct (39.0-53.0) % APTT (22.0-30.0) sec ABG pCO2 (35-45) mmHg ABG pO2 (83-108) mmHg ABG HCO3 (21-25) mmol/L Potassium (3.5-5.1) mmol/L Chloride (98-107) mmol/L Carbon Dioxide (22-30) mmol/L BUN (9-20) mg/dL Creatinine (0.66-1.25) mg/dL Glucose (74-99) mg/dL POC Glucose (mg/dL) 137 H 146 H 145 H (75-99) mg/dL Calcium (8.4-10.2) mg/dL Phosphorus (2.5-4.5) mg/dL 03/26/19 03/26/19 03/27/19 Range/Units 21:13 22:51 00:36 WBC (3.8-10.6) k/uL RBC (4.30-5.90) m/uL Hgb (13.0-17.5) gm/dL Hct (39.0-53.0) % APTT (22.0-30.0) sec ABG pCO2 (35-45) mmHg ABG pO2 (83-108) mmHg ABG HCO3 (21-25) mmol/L Potassium (3.5-5.1) mmol/L Chloride (98-107) mmol/L Carbon Dioxide (22-30) mmol/L BUN (9-20) mg/dL Creatinine (0.66-1.25) mg/dL Glucose (74-99) mg/dL POC Glucose (mg/dL) 147 H 128 H 147 H (75-99) mg/dL Calcium (8.4-10.2) mg/dL Phosphorus (2.5-4.5) mg/dL 03/27/19 03/27/19 03/27/19 Range/Units 02:57 04:34 04:34 WBC (3.8-10.6) k/uL RBC (4.30-5.90) m/uL Hgb (13.0-17.5) gm/dL Hct (39.0-53.0) % APTT 64.9 H (22.0-30.0) sec ABG pCO2 (35-45) mmHg ABG pO2 (83-108) mmHg ABG HCO3 (21-25) mmol/L Potassium 5.5 H (3.5-5.1) mmol/L Chloride 110 H (98-107) mmol/L Carbon Dioxide 19 L (22-30) mmol/L BUN 70 H (9-20) mg/dL Creatinine 1.83 H (0.66-1.25) mg/dL Glucose 215 H (74-99) mg/dL POC Glucose (mg/dL) 202 H (75-99) mg/dL Calcium 7.8 L (8.4-10.2) mg/dL Phosphorus 4.9 H (2.5-4.5) mg/dL 03/27/19 03/27/19 03/27/19 Range/Units 04:34 05:14 06:21 WBC 21.5 H (3.8-10.6) k/uL RBC 2.85 L (4.30-5.90) m/uL Hgb 7.9 L (13.0-17.5) gm/dL Hct 24.3 L (39.0-53.0) % APTT (22.0-30.0) sec ABG pCO2 (35-45) mmHg ABG pO2 (83-108) mmHg ABG HCO3 (21-25) mmol/L Potassium (3.5-5.1) mmol/L Chloride (98-107) mmol/L Carbon Dioxide (22-30) mmol/L BUN (9-20) mg/dL Creatinine (0.66-1.25) mg/dL Glucose (74-99) mg/dL POC Glucose (mg/dL) 211 H 207 H (75-99) mg/dL Calcium (8.4-10.2) mg/dL Phosphorus (2.5-4.5) mg/dL 03/27/19 03/27/19 03/27/19 Range/Units 06:49 07:51 07:54 WBC (3.8-10.6) k/uL RBC (4.30-5.90) m/uL Hgb (13.0-17.5) gm/dL Hct (39.0-53.0) % APTT (22.0-30.0) sec ABG pCO2 29 L (35-45) mmHg ABG pO2 73 L (83-108) mmHg ABG HCO3 20 L (21-25) mmol/L Potassium (3.5-5.1) mmol/L Chloride (98-107) mmol/L Carbon Dioxide (22-30) mmol/L BUN (9-20) mg/dL Creatinine (0.66-1.25) mg/dL Glucose (74-99) mg/dL POC Glucose (mg/dL) 228 H 180 H (75-99) mg/dL Calcium (8.4-10.2) mg/dL Phosphorus (2.5-4.5) mg/dL 03/27/19 03/27/19 03/27/19 Range/Units 08:53 10:15 11:05 WBC (3.8-10.6) k/uL RBC (4.30-5.90) m/uL Hgb (13.0-17.5) gm/dL Hct (39.0-53.0) % APTT (22.0-30.0) sec ABG pCO2 (35-45) mmHg ABG pO2 (83-108) mmHg ABG HCO3 (21-25) mmol/L Potassium (3.5-5.1) mmol/L Chloride (98-107) mmol/L Carbon Dioxide (22-30) mmol/L BUN (9-20) mg/dL Creatinine (0.66-1.25) mg/dL Glucose (74-99) mg/dL POC Glucose (mg/dL) 170 H 126 H 121 H (75-99) mg/dL Calcium (8.4-10.2) mg/dL Phosphorus (2.5-4.5) mg/dL 03/27/19 03/27/19 03/27/19 Range/Units 11:52 13:52 15:05 WBC (3.8-10.6) k/uL RBC (4.30-5.90) m/uL Hgb (13.0-17.5) gm/dL Hct (39.0-53.0) % APTT (22.0-30.0) sec ABG pCO2 (35-45) mmHg ABG pO2 (83-108) mmHg ABG HCO3 (21-25) mmol/L Potassium (3.5-5.1) mmol/L Chloride (98-107) mmol/L Carbon Dioxide (22-30) mmol/L BUN (9-20) mg/dL Creatinine (0.66-1.25) mg/dL Glucose (74-99) mg/dL POC Glucose (mg/dL) 119 H 182 H 193 H (75-99) mg/dL Calcium (8.4-10.2) mg/dL Phosphorus (2.5-4.5) mg/dL 03/27/19 Range/Units 16:00 WBC (3.8-10.6) k/uL RBC (4.30-5.90) m/uL Hgb (13.0-17.5) gm/dL Hct (39.0-53.0) % APTT (22.0-30.0) sec ABG pCO2 (35-45) mmHg ABG pO2 (83-108) mmHg ABG HCO3 (21-25) mmol/L Potassium (3.5-5.1) mmol/L Chloride (98-107) mmol/L Carbon Dioxide (22-30) mmol/L BUN (9-20) mg/dL Creatinine (0.66-1.25) mg/dL Glucose (74-99) mg/dL POC Glucose (mg/dL) 213 H (75-99) mg/dL Calcium (8.4-10.2) mg/dL Phosphorus (2.5-4.5) mg/dL Assessment and Plan Plan: Septic shock patient is on pressor support and the sepsis secondary to ischemic bowel. Patient is status post laparotomy and is on Zosyn. Patient is still requiring pressors CAT scan of the head is concerning for subacute hematoma because of which neurology will evaluate the patient. EEG will be obtained -Coronary artery disease severe multivessel 33 vessel disease patient had dyspnea for 40-45% with mitral regurgitation, patient is bit volume overloaded receiving Lasix at this time IV fluids were cut down to 20 mL per hour patient is on antiplatelet statin for this -Proximal A. fib presently sinus rhythm with PVCs and patient is on amiodarone oral which will be continued -Ventilator dependent respiratory failure secondary to sepsis management as per pulmonology -Severe pulmonary hypertension -Hyperlipidemia -Type 2 diabetes mellitus continue with present regimen depending on his sliding scale requirements with titrate the insulin regimen -Chronic kidney disease stage III with some acute kidney injury from sepsis and acute tubular necrosis chronic kidney disease secondary to diabetic nephropathy Acute renal failure: Secondary to acute tubular necrosis and prerenal azotemia which is improving -COPD with acute exacerbation -Polycystic kidney disease -Hypertension patient is presently hypotensive and is in shock -History of bladder cancer with TURP in the past Patient's overall prognosis is poor his clinical condition is guarded now. Warren andino is more appropriate for hospice and tingling will be discussed with the family. Patient is presently full code probably resuscitation is not a good idea
[2019-03-27 17:20] LABS: Glucose,Whole Blood 193 mg/dL (75-99)
[2019-03-27 18:22] LABS: Glucose,Whole Blood 164 mg/dL (75-99)
[2019-03-27 19:02] LABS: Glucose,Whole Blood 148 mg/dL (75-99)
[2019-03-27] MEDS: SODIUM CHLORIDE 0.9% 1,000 ML IV SCH (19:07)
[2019-03-27 20:08] LABS: Glucose,Whole Blood 113 mg/dL (75-99)
[2019-03-27] MEDS: METOPROLOL TARTRATE 25 MG TAB PO SCH (20:48)
[2019-03-27] MEDS: ATORVASTATIN 80 MG TAB PO SCH (20:48)
[2019-03-27 21:02] LABS: Glucose,Whole Blood 122 mg/dL (75-99)
[2019-03-27 22:04] LABS: Glucose,Whole Blood 149 mg/dL (75-99)
[2019-03-27 23:08] LABS: Glucose,Whole Blood 153 mg/dL (75-99)
[2019-03-27] MEDS: IPRATROPIUM-ALBUTEROL 3 ML NEB INHALATION PRN (23:33)
[2019-03-28 00:16] LABS: Glucose,Whole Blood 144 mg/dL (75-99)
[2019-03-28 01:02] LABS: Glucose,Whole Blood 127 mg/dL (75-99)
[2019-03-28] MEDS: HYDROmorphone 1 MG/ML 1 ML SYRINGE IVP PRN (01:16)
[2019-03-28] MEDS: PROPOFOL 1,000 MG in EMPTY BAG 1 BAG IV SCH ×5 (01:47→21:11)
[2019-03-28 02:01] LABS: Glucose,Whole Blood 116 mg/dL (75-99)
[2019-03-28 03:02] LABS: Glucose,Whole Blood 125 mg/dL (75-99)
[2019-03-28] MEDS: DILTIAZEM 125 MG in SODIUM CHLORIDE 0.9% 100 ML IV SCH (03:41)
[2019-03-28 04:06] LABS: Glucose,Whole Blood 157 mg/dL (75-99)
[2019-03-28 04:24] LABS: Basophils # (A) 0.1 k/uL (0-0.2); Basophils % (A) 0 %; Eosinophils # (A) 0.1 k/uL (0-0.7); Eosinophils % (A) 0 %; HGB 8.6 gm/dL (13.0-17.5); Hypochromasia Slight; Lymphocytes # (A) 0.7 k/uL (1.0-4.8); Lymphocytes % (A) 2 %; MCH 27.5 pg (25.0-35.0); MCHC 31.9 g/dL (31.0-37.0); Mean Platelet Volume 10.4; Monocytes # (A) 1.5 k/uL (0-1.0); Monocytes % (A) 5 %; Neutrophils # (A) 27.9 k/uL (1.3-7.7); Neutrophils % (A) 90 %; Platelet Count 389 k/uL (150-450); RBC 3.14 m/uL (4.30-5.90); RDW 15.2 % (11.5-15.5); WBC 30.9 k/uL (3.8-10.6)
[2019-03-28 04:41] LABS: Calcium 8.2 mg/dL (8.4-10.2); Magnesium 2.2 mg/dL (1.6-2.3); Phosphorus 6.3 mg/dL (2.5-4.5); Potassium 5.6 mmol/L (3.5-5.1)
[2019-03-28 05:01] LABS: Glucose,Whole Blood 172 mg/dL (75-99)
[2019-03-28 06:03] LABS: Glucose,Whole Blood 151 mg/dL (75-99)
[2019-03-28] MEDS: NOREPINEPHRINE 8 MG in SODIUM CHLORIDE 0.9% 250 ML IV SCH ×3 (06:10→22:00)
--- NOTE | 2019-03-28 06:54 | XR ---
EXAMINATION TYPE: XR chest 1V DATE OF EXAM: 03/28/2019 COMPARISON: Prior chest x-ray 03/27/2019 HISTORY: Intubated TECHNIQUE: Single frontal view of the chest is obtained. FINDINGS: Endotracheal tube and NG tube are overlying appropriate positions. There is a left jugular central venous catheter with the distal tip at the level of the cavoatrial junction. No evident pneu mothorax. Heart is stable. Bibasilar increased densities present, there is blunting of the costophren ic angles. Perihilar vascular indistinctness is noted. IMPRESSION: Correlate for congestive heart failure, basilar effusions and associated atelectasis katarina victoria edema, pneumonia not excluded. Follow-up recommended.
[2019-03-28 07:02] LABS: Glucose,Whole Blood 138 mg/dL (75-99)
[2019-03-28] MEDS: IPRATROPIUM-ALBUTEROL 3 ML NEB INHALATION SCH ×4 (07:36→21:22)
[2019-03-28 07:41] LABS: ABG Base Excess -4.7 mmol/L; ABG HCO3 20 mmol/L (21-25); ABG Oxygen Saturation 92.5 % (94-97); ABG PCO2 30 mmHg (35-45); ABG PH 7.43 (7.35-7.45); ABG PO2 68 mmHg (83-108); ABG TCO2 21 mmol/L (19-24)
--- NOTE | 2019-03-28 08:42 | P.PN ---
Subjective Progress Note Date: 03/28/19 CHIEF COMPLAINT: abdominal pain HISTORY OF PRESENT ILLNESS: Patient examined at the bedside with Dr. Hayes. Patient remains in intensive care unit. He remains intubated and sedated. TPN has been discontinued. Patient has tube feedings infusing at 43cc/hr. WBC 30.9 today. Hemoglobin 8.6. PHYSICAL EXAM: VITAL SIGNS: Reviewed. GENERAL: Well-developed in no acute distress-sedated. HEENT: No sclera icterus. Extraocular movements grossly intact. Moist buccal mucosa. Head is atraumatic, normocephalic. ABDOMEN: Soft. Dressing clean dry intact. Ostomy with stool noted. NEUROLOGIC: Sedated on mechanical ventilation ASSESSMENT: 1. Abdominal pain 2. Small bowel obstruction secondary to small bowel ischemia/necrosis with perforation, s/p exploratory laparotomy, small bowel resection, and jejunostomy. PLAN: Continue tube feedings as tolerated Continue antibiotics. Monitor WBC. Re-consult Dr. Powell to evaluate antibiotics and increasing WBC Change abdominal dressing today Continue ICU/ventilator management per Dr. Costello Nurse practitioner note has been reviewed by physician. Signing provider agrees with the documented findings, assessment, and plan of care. Objective - Vital Signs Vital signs: Vital Signs Temp 98.5 F 03/28/19 04:00 Pulse 98 03/28/19 07:50 Resp 28 H 03/28/19 07:00 BP 122/66 03/28/19 07:00 Pulse Ox 93 L 03/28/19 07:00 Intake & Output 03/27/19 03/28/19 03/28/19 18:59 06:59 18:59 Intake Total 2667.828 3602.933 73.757 Output Total 4025 1300 95 Balance -2830.742 489.933 -21.243 Weight 80.6 kg Intake: IV 394 430 25 .9 40 170 20 Diltiazem 125 mg In 5 60 5 Sodium Chloride 0.9% 100 ml @ 5 MG/HR 5 mls/hr IV .Q24H [facility] Rx#:[id number] Piperacillin-Tazobactam 3 100 .375 gm In Sodium Chloride 0.9% 100 ml @ 25 mls/hr IVPB Q8H [facility] Rx#: [id number] Piperacillin-Tazobactam 3 200 .375 gm In Sodium Chloride 0.9% 100 ml @ 25 mls/hr IVPB Q8HR [facility] Rx# :[id number] TPN 249 Intake, IV Titration 354.258 748.933 5.757 Amount Diltiazem 125 mg In 69.25 Sodium Chloride 0.9% 100 ml @ 5 MG/HR 5 mls/hr IV .Q24H [facility] Rx#:[id number] Heparin Sod,Pork in 0.45% 84.615 274.937 NaCl 25,000 unit In 0.45 % NaCl 1 250ml.bag @ 12 UNITS/KG/HR 8.712 mls/hr IV .Q24H [facility] Rx#: [id number] Insulin Regular 100 unit 79.377 49.028 5.757 In Sodium Chloride 0.9% 100 ml @ Per Protocol IV .Q0M [facility] Rx#:[id number] Norepinephrine 8 mg In 33.778 255.718 Sodium Chloride 0.9% 250 ml @ 0.05 MCG/KG/MIN 7.44 mls/hr IV .Q24H [facility] Rx#: [id number] Propofol 1,000 mg In 33.400 Empty Bag 1 bag @ Titrate IV .Q0M [facility] Rx#: [id number] Propofol 1,000 mg In 123.088 100 Empty Bag 1 bag @ Titrate IV .Q0M [facility] Rx#: [id number] Tube Feeding 386 521 43 Other 60 90 Output: Drainage 2800 Left upper quadrant 2800 ostomy Urine 1225 950 95 Stool 350 Other: Voiding Method Indwelling Catheter Indwelling Catheter # Voids 1 ABP, PAP, CO, CI - Last Documented Arterial Blood Pressure 109/45 - Labs CBC & Chem 7: 03/28/19 04:15 03/28/19 04:15 Labs: Abnormal Lab Results - Last 24 Hours (Table) 03/27/19 03/27/19 03/27/19 Range/Units 08:53 10:15 11:05 WBC (3.8-10.6) k/uL RBC (4.30-5.90) m/uL Hgb (13.0-17.5) gm/dL Hct (39.0-53.0) % Neutrophils # (1.3-7.7) k/uL Lymphocytes # (1.0-4.8) k/uL Monocytes # (0-1.0) k/uL APTT (22.0-30.0) sec ABG pCO2 (35-45) mmHg ABG pO2 (83-108) mmHg ABG HCO3 (21-25) mmol/L ABG O2 Saturation (94-97) % Potassium (3.5-5.1) mmol/L Chloride (98-107) mmol/L Carbon Dioxide (22-30) mmol/L BUN (9-20) mg/dL Creatinine (0.66-1.25) mg/dL Glucose (74-99) mg/dL POC Glucose (mg/dL) 170 H 126 H 121 H (75-99) mg/dL Calcium (8.4-10.2) mg/dL Phosphorus (2.5-4.5) mg/dL 03/27/19 03/27/19 03/27/19 Range/Units 11:52 13:52 15:05 WBC (3.8-10.6) k/uL RBC (4.30-5.90) m/uL Hgb (13.0-17.5) gm/dL Hct (39.0-53.0) % Neutrophils # (1.3-7.7) k/uL Lymphocytes # (1.0-4.8) k/uL Monocytes # (0-1.0) k/uL APTT (22.0-30.0) sec ABG pCO2 (35-45) mmHg ABG pO2 (83-108) mmHg ABG HCO3 (21-25) mmol/L ABG O2 Saturation (94-97) % Potassium (3.5-5.1) mmol/L Chloride (98-107) mmol/L Carbon Dioxide (22-30) mmol/L BUN (9-20) mg/dL Creatinine (0.66-1.25) mg/dL Glucose (74-99) mg/dL POC Glucose (mg/dL) 119 H 182 H 193 H (75-99) mg/dL Calcium (8.4-10.2) mg/dL Phosphorus (2.5-4.5) mg/dL 03/27/19 03/27/19 03/27/19 Range/Units 16:00 17:18 18:20 WBC (3.8-10.6) k/uL RBC (4.30-5.90) m/uL Hgb (13.0-17.5) gm/dL Hct (39.0-53.0) % Neutrophils # (1.3-7.7) k/uL Lymphocytes # (1.0-4.8) k/uL Monocytes # (0-1.0) k/uL APTT (22.0-30.0) sec ABG pCO2 (35-45) mmHg ABG pO2 (83-108) mmHg ABG HCO3 (21-25) mmol/L ABG O2 Saturation (94-97) % Potassium (3.5-5.1) mmol/L Chloride (98-107) mmol/L Carbon Dioxide (22-30) mmol/L BUN (9-20) mg/dL Creatinine (0.66-1.25) mg/dL Glucose (74-99) mg/dL POC Glucose (mg/dL) 213 H 193 H 164 H (75-99) mg/dL Calcium (8.4-10.2) mg/dL Phosphorus (2.5-4.5) mg/dL 03/27/19 03/27/19 03/27/19 Range/Units 19:00 20:07 21:00 WBC (3.8-10.6) k/uL RBC (4.30-5.90) m/uL Hgb (13.0-17.5) gm/dL Hct (39.0-53.0) % Neutrophils # (1.3-7.7) k/uL Lymphocytes # (1.0-4.8) k/uL Monocytes # (0-1.0) k/uL APTT (22.0-30.0) sec ABG pCO2 (35-45) mmHg ABG pO2 (83-108) mmHg ABG HCO3 (21-25) mmol/L ABG O2 Saturation (94-97) % Potassium (3.5-5.1) mmol/L Chloride (98-107) mmol/L Carbon Dioxide (22-30) mmol/L BUN (9-20) mg/dL Creatinine (0.66-1.25) mg/dL Glucose (74-99) mg/dL POC Glucose (mg/dL) 148 H 113 H 122 H (75-99) mg/dL Calcium (8.4-10.2) mg/dL Phosphorus (2.5-4.5) mg/dL 03/27/19 03/27/19 03/28/19 Range/Units 22:02 23:06 00:14 WBC (3.8-10.6) k/uL RBC (4.30-5.90) m/uL Hgb (13.0-17.5) gm/dL Hct (39.0-53.0) % Neutrophils # (1.3-7.7) k/uL Lymphocytes # (1.0-4.8) k/uL Monocytes # (0-1.0) k/uL APTT (22.0-30.0) sec ABG pCO2 (35-45) mmHg ABG pO2 (83-108) mmHg ABG HCO3 (21-25) mmol/L ABG O2 Saturation (94-97) % Potassium (3.5-5.1) mmol/L Chloride (98-107) mmol/L Carbon Dioxide (22-30) mmol/L BUN (9-20) mg/dL Creatinine (0.66-1.25) mg/dL Glucose (74-99) mg/dL POC Glucose (mg/dL) 149 H 153 H 144 H (75-99) mg/dL Calcium (8.4-10.2) mg/dL Phosphorus (2.5-4.5) mg/dL 03/28/19 03/28/19 03/28/19 Range/Units 01:00 02:01 03:01 WBC (3.8-10.6) k/uL RBC (4.30-5.90) m/uL Hgb (13.0-17.5) gm/dL Hct (39.0-53.0) % Neutrophils # (1.3-7.7) k/uL Lymphocytes # (1.0-4.8) k/uL Monocytes # (0-1.0) k/uL APTT (22.0-30.0) sec ABG pCO2 (35-45) mmHg ABG pO2 (83-108) mmHg ABG HCO3 (21-25) mmol/L ABG O2 Saturation (94-97) % Potassium (3.5-5.1) mmol/L Chloride (98-107) mmol/L Carbon Dioxide (22-30) mmol/L BUN (9-20) mg/dL Creatinine (0.66-1.25) mg/dL Glucose (74-99) mg/dL POC Glucose (mg/dL) 127 H 116 H 125 H (75-99) mg/dL Calcium (8.4-10.2) mg/dL Phosphorus (2.5-4.5) mg/dL 03/28/19 03/28/19 03/28/19 Range/Units 04:04 04:15 04:15 WBC 30.9 H (3.8-10.6) k/uL RBC 3.14 L (4.30-5.90) m/uL Hgb 8.6 L (13.0-17.5) gm/dL Hct 27.0 L (39.0-53.0) % Neutrophils # 27.9 H (1.3-7.7) k/uL Lymphocytes # 0.7 L (1.0-4.8) k/uL Monocytes # 1.5 H (0-1.0) k/uL APTT (22.0-30.0) sec ABG pCO2 (35-45) mmHg ABG pO2 (83-108) mmHg ABG HCO3 (21-25) mmol/L ABG O2 Saturation (94-97) % Potassium 5.6 H (3.5-5.1) mmol/L Chloride 110 H (98-107) mmol/L Carbon Dioxide 19 L (22-30) mmol/L BUN 72 H (9-20) mg/dL Creatinine 2.41 H (0.66-1.25) mg/dL Glucose 164 H (74-99) mg/dL POC Glucose (mg/dL) 157 H (75-99) mg/dL Calcium 8.2 L (8.4-10.2) mg/dL Phosphorus 6.3 H (2.5-4.5) mg/dL 03/28/19 03/28/19 03/28/19 Range/Units 04:45 04:59 06:02 WBC (3.8-10.6) k/uL RBC (4.30-5.90) m/uL Hgb (13.0-17.5) gm/dL Hct (39.0-53.0) % Neutrophils # (1.3-7.7) k/uL Lymphocytes # (1.0-4.8) k/uL Monocytes # (0-1.0) k/uL APTT 91.6 H (22.0-30.0) sec ABG pCO2 (35-45) mmHg ABG pO2 (83-108) mmHg ABG HCO3 (21-25) mmol/L ABG O2 Saturation (94-97) % Potassium (3.5-5.1) mmol/L Chloride (98-107) mmol/L Carbon Dioxide (22-30) mmol/L BUN (9-20) mg/dL Creatinine (0.66-1.25) mg/dL Glucose (74-99) mg/dL POC Glucose (mg/dL) 172 H 151 H (75-99) mg/dL Calcium (8.4-10.2) mg/dL Phosphorus (2.5-4.5) mg/dL 03/28/19 03/28/19 Range/Units 07:00 07:35 WBC (3.8-10.6) k/uL RBC (4.30-5.90) m/uL Hgb (13.0-17.5) gm/dL Hct (39.0-53.0) % Neutrophils # (1.3-7.7) k/uL Lymphocytes # (1.0-4.8) k/uL Monocytes # (0-1.0) k/uL APTT (22.0-30.0) sec ABG pCO2 30 L (35-45) mmHg ABG pO2 68 L (83-108) mmHg ABG HCO3 20 L (21-25) mmol/L ABG O2 Saturation 92.5 L (94-97) % Potassium (3.5-5.1) mmol/L Chloride (98-107) mmol/L Carbon Dioxide (22-30) mmol/L BUN (9-20) mg/dL Creatinine (0.66-1.25) mg/dL Glucose (74-99) mg/dL POC Glucose (mg/dL) 138 H (75-99) mg/dL Calcium (8.4-10.2) mg/dL Phosphorus (2.5-4.5) mg/dL
[2019-03-28] MEDS: METOPROLOL TARTRATE 25 MG TAB PO SCH ×2 (09:00→21:25)
[2019-03-28] MEDS: AMIODARONE 200 MG TAB PO SCH ×3 (09:00→21:25)
[2019-03-28] MEDS: CHLORHEXIDINE GLUCONATE 15 ML CUP MUCOUS MEM SCH ×2 (09:01→21:25)
[2019-03-28] MEDS: FENOFIBRATE 160 MG TAB PO SCH (09:01)
[2019-03-28] MEDS: PIPERACILLIN-TAZOBACTAM 3.375 GM in SODIUM CHLORIDE 0.9% 100 ML IVPB SCH ×3 (09:01→23:15)
[2019-03-28] MEDS: ASPIRIN 81 MG PO SCH (09:01)
[2019-03-28] MEDS: PANTOPRAZOLE 40 MG/10 ML VIAL IVP SCH (09:01)
[2019-03-28] MEDS ORDERED: FUROSEMIDE 10 MG/ML 4 ML VIAL IV SCH (09:30)
[2019-03-28 09:55] LABS: Glucose,Whole Blood 202 mg/dL (75-99)
--- NOTE | 2019-03-28 10:01 | P.PN ---
Subjective Progress Note Date: 03/28/19 This 73-year-old gentleman is is still intubated. Attempt to extubate him yesterday resultant tachypnea and tachycardia. Another weaning trial will be done today. He is in paroxysmal atrial fibrillation. I'm going to initiate him on beta luisa along with increasing the dose of the Po amiodarone. Patient has received Lasix and had some urine output yesterday. His creatinine is 1.8. Continue the rest of the medication. 03/25/2019: This is 73 old gentleman was admitted after cardiac catheterization for hydration. 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 Subsequently, patient developed findings consistent CHF and non-STEMI. He also developed atrial fibrillation with a rapid ventricular response. Subsequently was noted to have ischemic bowel and had surgery done. Patient seemed to be Hemodynamically stable at this time. His weaning attempts resultant tachypnea and tachycardia. Patient's adrenal function symptomatically improving. Creatinine is 1.8. The chest x-ray also shows improvement. CBC shows elevated white count. Could be related to steroids. We'll continue current medical therapy. Another attempt will be made to wean him off the respirator. 03/26/2019: This patient is still in intensive care unit intubated and sedated. Apparently there is concerned about her neurological status. He will not stopping the sedation for 2 hours, patient remained unresponsive. Computed tomography scan showed cerebral atrophy. MRI scan is being recommended. Neurology consult is pending. Patient is maintaining sinus rhythm on amiodarone. Overall his prognosis seems to be guarded. We'll continue current medical therapy. Pulmonology has updated the patient's family. 03/27/2019: This patient is still intubated. There is a question about is her neurological status. Neurology consult is pending. Hemodynamically patient is back in atrial fibrillation with moderately fast and corresponds. I'm going to increase the dose of the metoprolol. Patient is already on anticoagulation. Chest x-ray shows some improvement. Attempts at weaning seems to resultant t achypnea and tachycardia. Patient may need a tracheostomy. Overall prognosis is guarded 03/28/2019: Patient is still intubated. Weaning attempts were unsuccessful. Patient becomes tachypneic and tachycardic. Pt is in atrial fibrillation. Patient was started on IV Cardizem last night and apparently developed Sigmund bradycardia. Patient is back on a IV Cardizem. His heart rate is in the 110 range. He is also not effective.. His neurological status is in doubt. Patient needs an MRI which cannot be done. Patient maintained a tracheostomy and also PEG tube. Family is not in favor of these measures. May consider hospice care. Meanwhile we'll continue current medical therapy. Prognosis appears to be poor Objective - Vital Signs Vital signs: Vital Signs Temp 98.5 F 03/28/19 04:00 Pulse 98 03/28/19 07:50 Resp 28 H 03/28/19 07:00 BP 122/66 03/28/19 07:00 Pulse Ox 93 L 03/28/19 07:00 Intake & Output 03/27/19 03/28/19 03/28/19 18:59 06:59 18:59 Intake Total 5160.585 8673.933 73.757 Output Total 4025 1300 95 Balance -2830.742 489.933 -21.243 Weight 80.6 kg Intake: IV 394 430 25 .9 40 170 20 Diltiazem 125 mg In 5 60 5 Sodium Chloride 0.9% 100 ml @ 5 MG/HR 5 mls/hr IV .Q24H [facility] Rx#:[id number] Piperacillin-Tazobactam 3 100 .375 gm In Sodium Chloride 0.9% 100 ml @ 25 mls/hr IVPB Q8H [facility] Rx#: [id number] Piperacillin-Tazobactam 3 200 .375 gm In Sodium Chloride 0.9% 100 ml @ 25 mls/hr IVPB Q8HR [facility] Rx# :[id number] TPN 249 Intake, IV Titration 354.258 748.933 5.757 Amount Diltiazem 125 mg In 69.25 Sodium Chloride 0.9% 100 ml @ 5 MG/HR 5 mls/hr IV .Q24H [facility] Rx#:[id number] Heparin Sod,Pork in 0.45% 84.615 274.937 NaCl 25,000 unit In 0.45 % NaCl 1 250ml.bag @ 12 UNITS/KG/HR 8.712 mls/hr IV .Q24H [facility] Rx#: [id number] Insulin Regular 100 unit 79.377 49.028 5.757 In Sodium Chloride 0.9% 100 ml @ Per Protocol IV .Q0M [facility] Rx#:[id number] Norepinephrine 8 mg In 33.778 255.718 Sodium Chloride 0.9% 250 ml @ 0.05 MCG/KG/MIN 7.44 mls/hr IV .Q24H [facility] Rx#: [id number] Propofol 1,000 mg In 33.400 Empty Bag 1 bag @ Titrate IV .Q0M [facility] Rx#: [id number] Propofol 1,000 mg In 123.088 100 Empty Bag 1 bag @ Titrate IV .Q0M [facility] Rx#: [id number] Tube Feeding 386 521 43 Other 60 90 Output: Drainage 2800 Left upper quadrant 2800 ostomy Urine 1225 950 95 Stool 350 Other: Voiding Method Indwelling Catheter Indwelling Catheter # Voids 1 ABP, PAP, CO, CI - Last Documented Arterial Blood Pressure 109/45 - Exam GENERAL EXAM: Patient is intubated HEENT: Normocephalic. NECK: No masses, no nuchal rigidity. CHEST: No chest wall deformity. LUNGS: Diminished breath sounds at bases HEART: S1 and S2 normal. Irregular heart rhythm ABDOMEN: No hepatosplenomegaly, normal bowel sounds, no guarding or rigidity. SKIN: No rashes CENTRAL NERVOUS SYSTEM: Not assessed EXTREMITIES: No cyanosis, clubbing or edema. - Labs CBC & Chem 7: 03/28/19 04:15 03/28/19 04:15 Labs: Abnormal Lab Results - Last 24 Hours (Table) 03/27/19 03/27/19 03/27/19 Range/Units 10:15 11:05 11:52 WBC (3.8-10.6) k/uL RBC (4.30-5.90) m/uL Hgb (13.0-17.5) gm/dL Hct (39.0-53.0) % Neutrophils # (1.3-7.7) k/uL Lymphocytes # (1.0-4.8) k/uL Monocytes # (0-1.0) k/uL APTT (22.0-30.0) sec ABG pCO2 (35-45) mmHg ABG pO2 (83-108) mmHg ABG HCO3 (21-25) mmol/L ABG O2 Saturation (94-97) % Potassium (3.5-5.1) mmol/L Chloride (98-107) mmol/L Carbon Dioxide (22-30) mmol/L BUN (9-20) mg/dL Creatinine (0.66-1.25) mg/dL Glucose (74-99) mg/dL POC Glucose (mg/dL) 126 H 121 H 119 H (75-99) mg/dL Calcium (8.4-10.2) mg/dL Phosphorus (2.5-4.5) mg/dL 03/27/19 03/27/19 03/27/19 Range/Units 13:52 15:05 16:00 WBC (3.8-10.6) k/uL RBC (4.30-5.90) m/uL Hgb (13.0-17.5) gm/dL Hct (39.0-53.0) % Neutrophils # (1.3-7.7) k/uL Lymphocytes # (1.0-4.8) k/uL Monocytes # (0-1.0) k/uL APTT (22.0-30.0) sec ABG pCO2 (35-45) mmHg ABG pO2 (83-108) mmHg ABG HCO3 (21-25) mmol/L ABG O2 Saturation (94-97) % Potassium (3.5-5.1) mmol/L Chloride (98-107) mmol/L Carbon Dioxide (22-30) mmol/L BUN (9-20) mg/dL Creatinine (0.66-1.25) mg/dL Glucose (74-99) mg/dL POC Glucose (mg/dL) 182 H 193 H 213 H (75-99) mg/dL Calcium (8.4-10.2) mg/dL Phosphorus (2.5-4.5) mg/dL 03/27/19 03/27/19 03/27/19 Range/Units 17:18 18:20 19:00 WBC (3.8-10.6) k/uL RBC (4.30-5.90) m/uL Hgb (13.0-17.5) gm/dL Hct (39.0-53.0) % Neutrophils # (1.3-7.7) k/uL Lymphocytes # (1.0-4.8) k/uL Monocytes # (0-1.0) k/uL APTT (22.0-30.0) sec ABG pCO2 (35-45) mmHg ABG pO2 (83-108) mmHg ABG HCO3 (21-25) mmol/L ABG O2 Saturation (94-97) % Potassium (3.5-5.1) mmol/L Chloride (98-107) mmol/L Carbon Dioxide (22-30) mmol/L BUN (9-20) mg/dL Creatinine (0.66-1.25) mg/dL Glucose (74-99) mg/dL POC Glucose (mg/dL) 193 H 164 H 148 H (75-99) mg/dL Calcium (8.4-10.2) mg/dL Phosphorus (2.5-4.5) mg/dL 03/27/19 03/27/19 03/27/19 Range/Units 20:07 21:00 22:02 WBC (3.8-10.6) k/uL RBC (4.30-5.90) m/uL Hgb (13.0-17.5) gm/dL Hct (39.0-53.0) % Neutrophils # (1.3-7.7) k/uL Lymphocytes # (1.0-4.8) k/uL Monocytes # (0-1.0) k/uL APTT (22.0-30.0) sec ABG pCO2 (35-45) mmHg ABG pO2 (83-108) mmHg ABG HCO3 (21-25) mmol/L ABG O2 Saturation (94-97) % Potassium (3.5-5.1) mmol/L Chloride (98-107) mmol/L Carbon Dioxide (22-30) mmol/L BUN (9-20) mg/dL Creatinine (0.66-1.25) mg/dL Glucose (74-99) mg/dL POC Glucose (mg/dL) 113 H 122 H 149 H (75-99) mg/dL Calcium (8.4-10.2) mg/dL Phosphorus (2.5-4.5) mg/dL 03/27/19 03/28/19 03/28/19 Range/Units 23:06 00:14 01:00 WBC (3.8-10.6) k/uL RBC (4.30-5.90) m/uL Hgb (13.0-17.5) gm/dL Hct (39.0-53.0) % Neutrophils # (1.3-7.7) k/uL Lymphocytes # (1.0-4.8) k/uL Monocytes # (0-1.0) k/uL APTT (22.0-30.0) sec ABG pCO2 (35-45) mmHg ABG pO2 (83-108) mmHg ABG HCO3 (21-25) mmol/L ABG O2 Saturation (94-97) % Potassium (3.5-5.1) mmol/L Chloride (98-107) mmol/L Carbon Dioxide (22-30) mmol/L BUN (9-20) mg/dL Creatinine (0.66-1.25) mg/dL Glucose (74-99) mg/dL POC Glucose (mg/dL) 153 H 144 H 127 H (75-99) mg/dL Calcium (8.4-10.2) mg/dL Phosphorus (2.5-4.5) mg/dL 03/28/19 03/28/19 03/28/19 Range/Units 02:01 03:01 04:04 WBC (3.8-10.6) k/uL RBC (4.30-5.90) m/uL Hgb (13.0-17.5) gm/dL Hct (39.0-53.0) % Neutrophils # (1.3-7.7) k/uL Lymphocytes # (1.0-4.8) k/uL Monocytes # (0-1.0) k/uL APTT (22.0-30.0) sec ABG pCO2 (35-45) mmHg ABG pO2 (83-108) mmHg ABG HCO3 (21-25) mmol/L ABG O2 Saturation (94-97) % Potassium (3.5-5.1) mmol/L Chloride (98-107) mmol/L Carbon Dioxide (22-30) mmol/L BUN (9-20) mg/dL Creatinine (0.66-1.25) mg/dL Glucose (74-99) mg/dL POC Glucose (mg/dL) 116 H 125 H 157 H (75-99) mg/dL Calcium (8.4-10.2) mg/dL Phosphorus (2.5-4.5) mg/dL 03/28/19 03/28/19 03/28/19 Range/Units 04:15 04:15 04:45 WBC 30.9 H (3.8-10.6) k/uL RBC 3.14 L (4.30-5.90) m/uL Hgb 8.6 L (13.0-17.5) gm/dL Hct 27.0 L (39.0-53.0) % Neutrophils # 27.9 H (1.3-7.7) k/uL Lymphocytes # 0.7 L (1.0-4.8) k/uL Monocytes # 1.5 H (0-1.0) k/uL APTT 91.6 H (22.0-30.0) sec ABG pCO2 (35-45) mmHg ABG pO2 (83-108) mmHg ABG HCO3 (21-25) mmol/L ABG O2 Saturation (94-97) % Potassium 5.6 H (3.5-5.1) mmol/L Chloride 110 H (98-107) mmol/L Carbon Dioxide 19 L (22-30) mmol/L BUN 72 H (9-20) mg/dL Creatinine 2.41 H (0.66-1.25) mg/dL Glucose 164 H (74-99) mg/dL POC Glucose (mg/dL) (75-99) mg/dL Calcium 8.2 L (8.4-10.2) mg/dL Phosphorus 6.3 H (2.5-4.5) mg/dL 03/28/19 03/28/19 03/28/19 Range/Units 04:59 06:02 07:00 WBC (3.8-10.6) k/uL RBC (4.30-5.90) m/uL Hgb (13.0-17.5) gm/dL Hct (39.0-53.0) % Neutrophils # (1.3-7.7) k/uL Lymphocytes # (1.0-4.8) k/uL Monocytes # (0-1.0) k/uL APTT (22.0-30.0) sec ABG pCO2 (35-45) mmHg ABG pO2 (83-108) mmHg ABG HCO3 (21-25) mmol/L ABG O2 Saturation (94-97) % Potassium (3.5-5.1) mmol/L Chloride (98-107) mmol/L Carbon Dioxide (22-30) mmol/L BUN (9-20) mg/dL Creatinine (0.66-1.25) mg/dL Glucose (74-99) mg/dL POC Glucose (mg/dL) 172 H 151 H 138 H (75-99) mg/dL Calcium (8.4-10.2) mg/dL Phosphorus (2.5-4.5) mg/dL 03/28/19 03/28/19 Range/Units 07:35 09:54 WBC (3.8-10.6) k/uL RBC (4.30-5.90) m/uL Hgb (13.0-17.5) gm/dL Hct (39.0-53.0) % Neutrophils # (1.3-7.7) k/uL Lymphocytes # (1.0-4.8) k/uL Monocytes # (0-1.0) k/uL APTT (22.0-30.0) sec ABG pCO2 30 L (35-45) mmHg ABG pO2 68 L (83-108) mmHg ABG HCO3 20 L (21-25) mmol/L ABG O2 Saturation 92.5 L (94-97) % Potassium (3.5-5.1) mmol/L Chloride (98-107) mmol/L Carbon Dioxide (22-30) mmol/L BUN (9-20) mg/dL Creatinine (0.66-1.25) mg/dL Glucose (74-99) mg/dL POC Glucose (mg/dL) 202 H (75-99) mg/dL Calcium (8.4-10.2) mg/dL Phosphorus (2.5-4.5) mg/dL Assessment and Plan (1) Triple vessel disease of the heart Current Visit: Yes Status: Acute Code(s): I25.10 - ATHSCL HEART DISEASE OF [place] CORONARY ARTERY W/O ANG PCTRS SNOMED Code(s): 278258517 (2) Acute exacerbation of chronic obstructive airways disease Current Visit: No Status: Acute Code(s): J44.1 - CHRONIC OBSTRUCTIVE PULMONARY DISEASE W (ACUTE) EXACERBATION SNOMED Code(s): 330571334 (3) Pulmonary edema Current Visit: Yes Status: Acute Code(s): J81.1 - CHRONIC PULMONARY EDEMA SNOMED Code(s): 42227083 Plan: Continue supportive care. Patient is on by mouth amiodarone, IV Cardizem and also metoprolol. We will switch to by mouth Cardizem. Patient may need a trach eostomy and probably PEG tube. Family is not in favor. Neurological status is in doubt. Prognosis poor
[2019-03-28 10:58] LABS: Glucose,Whole Blood 215 mg/dL (75-99)
[2019-03-28 12:03] LABS: Glucose,Whole Blood 194 mg/dL (75-99)
--- NOTE | 2019-03-28 12:27 | P.PN ---
Subjective Progress Note Date: 03/28/19 Principal diagnosis: acute hypoxic respiratory failure, multifactorial on 03/24/2019 the patient is postop day #3. The patient underwent bowel resection for an acute ischemic bowel and the patient underwent small bowel resection, ileal resection, jejunal resection with diverting jejunostomy. A breeze spontaneous breathing trial was given to him yesterday. The patient feels he became tachypneic and tachycardic and restless. This was aborted. The same will be done today. I feel that he is essentially stable. He remains on a mechanical ventilator on assist control mode at the rate of 12 with a tidal volume of 500 and FiO2 of 40% with a PEEP of 5. Chest x-ray showing pulmonary vascular congestion/small effusion the lungs left more than right. ET tube is in a good location. He is a left IJ triple lumen catheter in place. The patient was given a dose of Lasix yesterday. He did produce some urine output. His creatinine is down to 1.8. The neck fluid balance is +600 mL over the past 24 hours. The creatinine is improving. He is on and off in atrial fibrillati on. After being taken off the amiodarone drip, he was placed on oral amiodarone and this morning is back into atrial fibrillation with a controlled rate. His heart rate goes sometimes in the low 100s. The patient was seen by cardiology. Metoprolol was added. His amiodarone dose was also increased up to 200 mg 3 times a day. He is on IV heparin. He is on norepinephrine infusion which is running at a low backup rate of 0.09 g per KG per minute. He is receiving TPN for nutritional support. He is afebrile for now. All of the cultures of been negative thus far..Note that the patient has COPD,, his FEV1 is normal to 52% of predicted, he has history of diabetes and history of bladder cancer and he has history of stage III kidney disease with polycystic kidney disease disorder. Reevaluated today on 03/25/2019, patient remains on mechanical ventilation, intubated, sedated, ventilator settings are assist control rate of 12, tidal volume is 500 FiO2 40% PEEP of 5. Patient remains on insulin drip, norepinephrine drip at 0.07 mcg/kg/m, remains on propofol which I have discontinued, he is on heparin drip and on TPN. Patient is postoperative day #4. Chest x-ray showed minimal hazy densities at the bases, most likely atelectasis and possibly a small pleural effusion noted. Labs showed the PEEP cigar 20.8 hemoglobin 8.9 ABG showed a pO2 of 98 pCO2 of 40 pH of 7.40. Renal functioning is about the same, creatinine is 1.86. Patient remains on TPN. Patient is not responsive to any stimuli, hence I have discontinued his propofol, and I have switched him to a pressure support and CPAP with a pressure support of 12, previous trial of weaning have failed by Dr. Aguiar, patient developed significant tachypnea and tachycardia with CPAP, however I will try adding pressure support of 12, and we will closely monitor for potential extubation if his mental status improves. Reevaluated today on 03/26/2019, patient remains in the intensive care unit, on mechanical ventilation. Tidal volume is 500 assist control rate of 12 FiO2 is 40% and PEEP is 5. Remains on levo fed at 0.05 mcg/kg/m, still requiring propofol, insulin drip, and he is on heparin drip. Mental status is extremely poor, patient has been off propofol now for the last 2 hours, and does not seem to be waking up to follow any instructions at this point yet. Yesterday he was off sedation for 4 hours, and he was getting extremely agitated, had to be placed back on assist control mode of mechanical ventilation, and placed back on sedation. We plan to continue to do so today. Family is at bedside, however I'm a bit concerned about his mental status, even off sedation the patient does not seem to respond to any stimuli including deep painful stimuli. I would recommend a CT of the brain, I would also recommend a neurological consultation on this patient.labs today werelabs today were all reviewed.WBC count is 19.9 hemoglobin is 8.5. ABG showed a pO2 of 102 pCO2 of 32 pH of 7.45.renal profile is a bit improving BUN is 66 creatinine is 1.85. Family is at bedside, and updated on his condition. CT of the brain showed cerebral atrophy, age-related, chronic small vessel ischemia, difficult to rule out subacute ischemia. His basal ganglia showed asymmetry, hence MRI was recommended by the radiologist. Will leave that decision to the neurologist whom I will consult today.chest x- ray showed overall stable findings, chronic emphysematous changes, small pleural effusions, and minimal bibasilar atelectasis. Reevaluated today on 03/27/2019, remains intubated and mechanically ventilated. His ventilator settings are basically the same, patient is on tidal volume of 500 assist control rate of 12 FiO2 of 40% and PEEP of 5. ABG this morning showed a pO2 of 73 pCO2 of 29 pH of 7.45. Chest x-ray is showing evidence of interstitial edema. Patient is having intermittent episodes of atrial f ibrillation with RVR, and his beta luisa dose was increased by cardiology. Remains on insulin drip, propofol drip, remains on antibiotics, remains on enteral feeding and on TPN. Will likely discontinue TPN once the enteral feeding is up to goal. Mental status owens remains poor, in the last few days I have been trying daily to hold sedation and assessment of status, however his mental status is extremely poor, and his CT of the brain was done by neurology, his basal ganglia showed asymmetry, and radiologist suggested possible MRI. However that will be decided upon by neurology on the case. Otherwise his CT of the brain is unremarkable. There is age-related cortical atrophy. Considering his chest x-ray showing evidence of slight interstitial edema, I have recommended a dose of Lasix 40 mg IV push to be given today. Patient remains hemodynamically stable in spite of his atrial fibrillation and RVR, and considering his cardiac findings I would recommend no plans to hold sedation today, place him back on propofol, and continue supportive care measures. Considering the overall picture, May have to seriously considered tracheostomy on this patient sometime next week. I doubt if we would be able to successfully wean the patient at this time. Reevaluated today on 03/28/2019, patient remains in the ICU, intubated, and mechanically ventilated. His ventilator settings are assist control rate of 16, volume is 500 FiO2 40% PEEP is 5. Patient is still experiencing intermittent episodes of atrial fibrillation and RVR, required placement on Cardizem drip, his beta luisa dose was increased, patient is also now requiring norepinephrine at 0.22 mcg/kg/m. Remains on propofol which I will increase to 50 mcg/kg/m. Patient remains tachypnea, tachycardic, in atrial fibrillation with RVR at times. Since Cardizem was started, the rate seems to be better controlled. But he is now hypotensive requiring norepinephrine. Chest x-ray is showing evidence of congestive heart failure and bilateral effusions with atelectasis. Pneumonia is not entirely ruled out but felt to be less likely at this point. Family is at bedside, and they were updated on his condition including his neurological condition which seems to be extremely poor and the patient does not respond to any painful stimuli. Updated on his cardiac condition, pulmonary condition, GI condition, and his renal issues. Clearly the patient has a multi organ system failure, and his prognosis is becoming poorer a nd poorer. Today I even touch bases with the family regarding tracheostomy if the patient doesn't improve in the next few days, or possibly consider comfort care measures. The family seems to be inclined to proceed with comfort care measures if we get to that point of addressing tracheostomy. In the meantime the CODE STATUS was changed to DO NOT RESUSCITATE CODE STATUS. WBC count is up to 30.9 hemoglobin is 8.6. ABG showed a pO2 of 68 pCO2 of 30 pH of 7.43. BUN is up to 72 creatinine is up to 2.41. Worsening leukocytosis was noted today, patient remains on Zosyn which I started yesterday. I will recommend the blood cultures to be done. And sputum cultures reevaluated. May even have to consider CT of the abdomen and pelvis for evaluation of possible abdominal abscess. However the patient is an extremely poor surgical candidate at this point. Objective - Vital Signs Vital signs: Vital Signs Temp 99.5 F 03/28/19 12:00 Pulse 87 03/28/19 12:00 Resp 31 H 03/28/19 12:00 BP 111/54 03/28/19 12:00 Pulse Ox 95 03/28/19 12:00 Intake & Output 03/27/19 03/28/19 03/28/19 18:59 06:59 18:59 Intake Total 1758.842 4259.933 819.913 Output Total 4025 1300 2545 Balance -2830.742 489.933 -1725.087 Weight 80.6 kg Intake: IV 394 430 200 .9 40 170 70 Diltiazem 125 mg In 5 60 30 Sodium Chloride 0.9% 100 ml @ 5 MG/HR 5 mls/hr IV .Q24H [facility] Rx#:[id number] Piperacillin-Tazobactam 3 100 .375 gm In Sodium Chloride 0.9% 100 ml @ 25 mls/hr IVPB Q8H [facility] Rx#: [id number] Piperacillin-Tazobactam 3 200 100 .375 gm In Sodium Chloride 0.9% 100 ml @ 25 mls/hr IVPB Q8HR [facility] Rx# :[id number] TPN 249 Intake, IV Titration 354.258 748.933 328.913 Amount Diltiazem 125 mg In 69.25 Sodium Chloride 0.9% 100 ml @ 5 MG/HR 5 mls/hr IV .Q24H [facility] Rx#:[id number] Heparin Sod,Pork in 0.45% 84.615 274.937 NaCl 25,000 unit In 0.45 % NaCl 1 250ml.bag @ 12 UNITS/KG/HR 8.712 mls/hr IV .Q24H [facility] Rx#: [id number] Insulin Regular 100 unit 79.377 49.028 21.883 In Sodium Chloride 0.9% 100 ml @ Per Protocol IV .Q0M [facility] Rx#:[id number] Norepinephrine 8 mg In 33.778 255.718 158.224 Sodium Chloride 0.9% 250 ml @ 0.05 MCG/KG/MIN 7.44 mls/hr IV .Q24H [facility] Rx#: [id number] Propofol 1,000 mg In 33.400 Empty Bag 1 bag @ Titrate IV .Q0M [facility] Rx#: [id number] Propofol 1,000 mg In 123.088 100 148.806 Empty Bag 1 bag @ Titrate IV .Q0M [facility] Rx#: [id number] Tube Feeding 386 521 261 Other 60 90 30 Output: Drainage 2800 1200 Left upper quadrant 2800 1200 ostomy Urine 8125 651 0516 Stool 350 300 Other: Voiding Method Indwelling Catheter Indwelling Catheter Indwelling Catheter # Voids 1 1 ABP, PAP, CO, CI - Last Documented Arterial Blood Pressure 95/39 - Exam Physical Exam: Revealed a 73-year-old white male intubated on mechanical ventilation, unresponsive to any deep painful stimuli or verbal stimuli. Head: Atraumatic, normocephalic. Endotracheal tube and orogastric tube are intact. HEENT:[Neck is supple.] [No neck masses.] [No thyromegaly.] [No JVD.] PERRLA, EOMI, no icterus. Chest: [Symmetrical chest expansion, crackles at the bases bilaterally. Some wheezing. Cardiac Exam: [Normal S1 and S2, no S3 gallop, no murmur.] Abdomen: [ reveals absent absent bowel sounds, jejunostomy site is viable and there is some liquidy material collecting in the back. The patient also has a mid abdominal incision which is dry clean and intact at this point in time.. Extremities: [No clubbing, no edema, no cyanosis.] Neurological Exam: obtunded, not responding to any painful or verbal stimuli. Psychiatric: Cannot be obtained. Skin: No rashes. - Labs CBC & Chem 7: 03/28/19 04:15 03/28/19 04:15 Labs: Abnormal Lab Results - Last 24 Hours (Table) 03/27/19 03/27/19 03/27/19 Range/Units 13:52 15:05 16:00 WBC (3.8-10.6) k/uL RBC (4.30-5.90) m/uL Hgb (13.0-17.5) gm/dL Hct (39.0-53.0) % Neutrophils # (1.3-7.7) k/uL Lymphocytes # (1.0-4.8) k/uL Monocytes # (0-1.0) k/uL APTT (22.0-30.0) sec ABG pCO2 (35-45) mmHg ABG pO2 (83-108) mmHg ABG HCO3 (21-25) mmol/L ABG O2 Saturation (94-97) % Potassium (3.5-5.1) mmol/L Chloride (98-107) mmol/L Carbon Dioxide (22-30) mmol/L BUN (9-20) mg/dL Creatinine (0.66-1.25) mg/dL Glucose (74-99) mg/dL POC Glucose (mg/dL) 182 H 193 H 213 H (75-99) mg/dL Calcium (8.4-10.2) mg/dL Phosphorus (2.5-4.5) mg/dL 03/27/19 03/27/19 03/27/19 Range/Units 17:18 18:20 19:00 WBC (3.8-10.6) k/uL RBC (4.30-5.90) m/uL Hgb (13.0-17.5) gm/dL Hct (39.0-53.0) % Neutrophils # (1.3-7.7) k/uL Lymphocytes # (1.0-4.8) k/uL Monocytes # (0-1.0) k/uL APTT (22.0-30.0) sec ABG pCO2 (35-45) mmHg ABG pO2 (83-108) mmHg ABG HCO3 (21-25) mmol/L ABG O2 Saturation (94-97) % Potassium (3.5-5.1) mmol/L Chloride (98-107) mmol/L Carbon Dioxide (22-30) mmol/L BUN (9-20) mg/dL Creatinine (0.66-1.25) mg/dL Glucose (74-99) mg/dL POC Glucose (mg/dL) 193 H 164 H 148 H (75-99) mg/dL Calcium (8.4-10.2) mg/dL Phosphorus (2.5-4.5) mg/dL 03/27/19 03/27/19 03/27/19 Range/Units 20:07 21:00 22:02 WBC (3.8-10.6) k/uL RBC (4.30-5.90) m/uL Hgb (13.0-17.5) gm/dL Hct (39.0-53.0) % Neutrophils # (1.3-7.7) k/uL Lymphocytes # (1.0-4.8) k/uL Monocytes # (0-1.0) k/uL APTT (22.0-30.0) sec ABG pCO2 (35-45) mmHg ABG pO2 (83-108) mmHg ABG HCO3 (21-25) mmol/L ABG O2 Saturation (94-97) % Potassium (3.5-5.1) mmol/L Chloride (98-107) mmol/L Carbon Dioxide (22-30) mmol/L BUN (9-20) mg/dL Creatinine (0.66-1.25) mg/dL Glucose (74-99) mg/dL POC Glucose (mg/dL) 113 H 122 H 149 H (75-99) mg/dL Calcium (8.4-10.2) mg/dL Phosphorus (2.5-4.5) mg/dL 03/27/19 03/28/19 03/28/19 Range/Units 23:06 00:14 01:00 WBC (3.8-10.6) k/uL RBC (4.30-5.90) m/uL Hgb (13.0-17.5) gm/dL Hct (39.0-53.0) % Neutrophils # (1.3-7.7) k/uL Lymphocytes # (1.0-4.8) k/uL Monocytes # (0-1.0) k/uL APTT (22.0-30.0) sec ABG pCO2 (35-45) mmHg ABG pO2 (83-108) mmHg ABG HCO3 (21-25) mmol/L ABG O2 Saturation (94-97) % Potassium (3.5-5.1) mmol/L Chloride (98-107) mmol/L Carbon Dioxide (22-30) mmol/L BUN (9-20) mg/dL Creatinine (0.66-1.25) mg/dL Glucose (74-99) mg/dL POC Glucose (mg/dL) 153 H 144 H 127 H (75-99) mg/dL Calcium (8.4-10.2) mg/dL Phosphorus (2.5-4.5) mg/dL 03/28/19 03/28/19 03/28/19 Range/Units 02:01 03:01 04:04 WBC (3.8-10.6) k/uL RBC (4.30-5.90) m/uL Hgb (13.0-17.5) gm/dL Hct (39.0-53.0) % Neutrophils # (1.3-7.7) k/uL Lymphocytes # (1.0-4.8) k/uL Monocytes # (0-1.0) k/uL APTT (22.0-30.0) sec ABG pCO2 (35-45) mmHg ABG pO2 (83-108) mmHg ABG HCO3 (21-25) mmol/L ABG O2 Saturation (94-97) % Potassium (3.5-5.1) mmol/L Chloride (98-107) mmol/L Carbon Dioxide (22-30) mmol/L BUN (9-20) mg/dL Creatinine (0.66-1.25) mg/dL Glucose (74-99) mg/dL POC Glucose (mg/dL) 116 H 125 H 157 H (75-99) mg/dL Calcium (8.4-10.2) mg/dL Phosphorus (2.5-4.5) mg/dL 03/28/19 03/28/19 03/28/19 Range/Units 04:15 04:15 04:45 WBC 30.9 H (3.8-10.6) k/uL RBC 3.14 L (4.30-5.90) m/uL Hgb 8.6 L (13.0-17.5) gm/dL Hct 27.0 L (39.0-53.0) % Neutrophils # 27.9 H (1.3-7.7) k/uL Lymphocytes # 0.7 L (1.0-4.8) k/uL Monocytes # 1.5 H (0-1.0) k/uL APTT 91.6 H (22.0-30.0) sec ABG pCO2 (35-45) mmHg ABG pO2 (83-108) mmHg ABG HCO3 (21-25) mmol/L ABG O2 Saturation (94-97) % Potassium 5.6 H (3.5-5.1) mmol/L Chloride 110 H (98-107) mmol/L Carbon Dioxide 19 L (22-30) mmol/L BUN 72 H (9-20) mg/dL Creatinine 2.41 H (0.66-1.25) mg/dL Glucose 164 H (74-99) mg/dL POC Glucose (mg/dL) (75-99) mg/dL Calcium 8.2 L (8.4-10.2) mg/dL Phosphorus 6.3 H (2.5-4.5) mg/dL 03/28/19 03/28/19 03/28/19 Range/Units 04:59 06:02 07:00 WBC (3.8-10.6) k/uL RBC (4.30-5.90) m/uL Hgb (13.0-17.5) gm/dL Hct (39.0-53.0) % Neutrophils # (1.3-7.7) k/uL Lymphocytes # (1.0-4.8) k/uL Monocytes # (0-1.0) k/uL APTT (22.0-30.0) sec ABG pCO2 (35-45) mmHg ABG pO2 (83-108) mmHg ABG HCO3 (21-25) mmol/L ABG O2 Saturation (94-97) % Potassium (3.5-5.1) mmol/L Chloride (98-107) mmol/L Carbon Dioxide (22-30) mmol/L BUN (9-20) mg/dL Creatinine (0.66-1.25) mg/dL Glucose (74-99) mg/dL POC Glucose (mg/dL) 172 H 151 H 138 H (75-99) mg/dL Calcium (8.4-10.2) mg/dL Phosphorus (2.5-4.5) mg/dL 03/28/19 03/28/19 03/28/19 Range/Units 07:35 09:54 10:57 WBC (3.8-10.6) k/uL RBC (4.30-5.90) m/uL Hgb (13.0-17.5) gm/dL Hct (39.0-53.0) % Neutrophils # (1.3-7.7) k/uL Lymphocytes # (1.0-4.8) k/uL Monocytes # (0-1.0) k/uL APTT (22.0-30.0) sec ABG pCO2 30 L (35-45) mmHg ABG pO2 68 L (83-108) mmHg ABG HCO3 20 L (21-25) mmol/L ABG O2 Saturation 92.5 L (94-97) % Potassium (3.5-5.1) mmol/L Chloride (98-107) mmol/L Carbon Dioxide (22-30) mmol/L BUN (9-20) mg/dL Creatinine (0.66-1.25) mg/dL Glucose (74-99) mg/dL POC Glucose (mg/dL) 202 H 215 H (75-99) mg/dL Calcium (8.4-10.2) mg/dL Phosphorus (2.5-4.5) mg/dL 03/28/19 Range/Units 12:02 WBC (3.8-10.6) k/uL RBC (4.30-5.90) m/uL Hgb (13.0-17.5) gm/dL Hct (39.0-53.0) % Neutrophils # (1.3-7.7) k/uL Lymphocytes # (1.0-4.8) k/uL Monocytes # (0-1.0) k/uL APTT (22.0-30.0) sec ABG pCO2 (35-45) mmHg ABG pO2 (83-108) mmHg ABG HCO3 (21-25) mmol/L ABG O2 Saturation (94-97) % Potassium (3.5-5.1) mmol/L Chloride (98-107) mmol/L Carbon Dioxide (22-30) mmol/L BUN (9-20) mg/dL Creatinine (0.66-1.25) mg/dL Glucose (74-99) mg/dL POC Glucose (mg/dL) 194 H (75-99) mg/dL Calcium (8.4-10.2) mg/dL Phosphorus (2.5-4.5) mg/dL Assessment and Plan Assessment: Impression: Severe multivessel coronary artery disease, post non-ST elevation myocardial infarction. Patient was being considered for surgery, however considering his ischemic bowel issue that is presently on hold. Ischemic cardiomyopathy and LV dysfunction ejection fraction of 35%. Severe pulmonary hypertension Moderate severe mitral regurgitation Acute ischemic small bowel requiring exploratory laparotomy, and ileal/a jejunostomy resection and diverting jejunostomy. Type 2 diabetes, currently on insulin as per protocol. . Polycystic kidney disease. Chronic obstructive pulmonary disease and chronic smoking history. Chronic stage III kidney failure with acute on chronic kidney disease, worsening. Benign essential hypertension. Severe pulmonary hypertension and moderate to severe mitral regurgitation postoperative hypoxic respiratory failure, multifactorial, secondary to ischemic cardiomyopathy, LV dysfunction, severe pulmonary hypertension, underlying COPD, and moderate to severe mitral regurgitation. This is not expected. Paroxysmal atrial fibrillation with RVR, being addressed by cardiology. His beta luisa dose was increased. Acute pulmonary edema secondary to systolic congestive heart failure. Severe metabolic encephalopathy with extremely poor mental status. Recommendation: Continue ventilatory support, Advance nutrition/enteral feeding Resume sedation as per protocol. Continue diuretics. Continue empiric antibiotics. Presently on Zosyn, recheck blood cultures and sputum cultures consider a CT of the abdomen and pelvis with oral contrast. Continue cardiac meds as per cardiology. Continue to monitor renal status. Seems to be worsening today. Continue daily chest x-rays. Continue GI and DVT prophylaxis. Family was updated on his condition today, and willing to consider comfort care measures if no major improvement noted in the next few days. Will not agreed to tracheostomy. Critical care time is 40 minutes Time with Patient: Greater than 30
[2019-03-28 13:04] LABS: Glucose,Whole Blood 157 mg/dL (75-99)
[2019-03-28] MEDS: HEPARIN SOD,PORK IN 0.45% NACL 25,000 UNIT in 0.45% NACL 1 250ML.BAG IV SCH (13:18)
[2019-03-28] MEDS: ACETAMINOPHEN TAB 325 MG TAB PO PRN (13:28)
[2019-03-28 14:33] LABS: Glucose,Whole Blood 129 mg/dL (75-99)
[2019-03-28 15:08] LABS: Glucose,Whole Blood 139 mg/dL (75-99)
[2019-03-28] MEDS ORDERED: VANCOMYCIN IV PER PHARMACY 1 EACH MISC MISCELLANE PRN (15:10)
--- NOTE | 2019-03-28 15:13 | P.PN ---
Subjective Patient is status post laparotomy for a small wall ischemia consider necrosis. The patient the surgical risk is very high as it wasn't emergent surgery patient underwent surgery and patient is presently intubated patient in shock broad- spectrum antibiotics patient on propofol and norepinephrine. Patient was having a low-grade temperatures and patient is presently receiving TPN for nutritional support. Patient has colostomy as well patient has a major three-vessel disease and patient was in A. fib patient of the proximal A. fib presently on amiodarone wasn't is sinus rhythm was sinus tachycardia. Does have history of chronic kidney disease stage III from polycystic kidney 03/23/2019 No significant change in clinical condition patient remains on norepinephrine remains intubated. Patient urine output is good patient remains on normal saline at 100 mL per hour. 03/24/2019 Patient is bit more awake today weaning of sedation although patient did undergo spontaneous breathing trial yet today. Patient is still on norepinephrine, IV h eparin, IV normal saline which is cut down to 20 mL now patient actually received Lasix with the good urine output. 03/25/2019 Patient is norepinephrine is being weaned off, patient is presently receiving IV Lasix patient has small left pleural effusion creatinine although improved to 1.86 sedation is being discontinued and patient will undergo weaning trial. 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 CAT scan didn't show any intracranial bleed but sed rate cannot rule out subacute ischemia and recommended an MRI and neurology was subsequently consulted. Patient is still on norepinephrine, heparin drip and insulin drip. Not sure patient will need to continue the antibiotics will discuss with infectious disease 03/27/2019 Patient remains mechanically intubated patient is not responding well in spite of aggressive therapy considering his age and overall medical problems probably hospice and comfort care is more appropriate choice. Neurology is evaluating the patient. EEG is being will be obtained patient remains on propofol occasionally breathing over the ventilator patient does have cough reflex gag reflex. 03/28/2019 Patient has worsening leukocytosis because of which abdominal CAT scan is being obtained to rule out any intra-abdominal abscess. Patient is not doing well overall patient does have pulmonary edema started having fevers again patient remains on broad-spectrum antibiotics. As patient's sputum cultures are positive for Mayelin albicans. Patient remains on Zosyn. Repeat blood cultures will be obtained infectious disease will be consulted patient will be started on vancomycin. remains intubated patient is presently on Cardizem drip. Patient is also on amiodarone Review of systems: Unable to obtain due to his clinical condition All inpatient medications were reviewed and appropriate changes in these medications as dictated in the interval history and assessment and plan. Objective - Vital Signs Vital signs: Vital Signs Temp 101 F H 03/28/19 13:00 Pulse 102 H 03/28/19 13:00 Resp 28 H 03/28/19 13:00 BP 118/70 03/28/19 13:00 Pulse Ox 96 03/28/19 13:00 Intake & Output 03/27/19 03/28/19 03/28/19 18:59 06:59 18:59 Intake Total 2769.278 2156.933 1051.892 Output Total 4025 1300 2620 Balance -2830.742 489.933 -1568.108 Weight 80.6 kg Intake: IV 394 430 215 .9 40 170 80 Diltiazem 125 mg In 5 60 35 Sodium Chloride 0.9% 100 ml @ 5 MG/HR 5 mls/hr IV .Q24H [facility] Rx#:[id number] Piperacillin-Tazobactam 3 100 .375 gm In Sodium Chloride 0.9% 100 ml @ 25 mls/hr IVPB Q8H [facility] Rx#: [id number] Piperacillin-Tazobactam 3 200 100 .375 gm In Sodium Chloride 0.9% 100 ml @ 25 mls/hr IVPB Q8HR [facility] Rx# :[id number] TPN 249 Intake, IV Titration 354.258 748.933 502.892 Amount Diltiazem 125 mg In 69.25 Sodium Chloride 0.9% 100 ml @ 5 MG/HR 5 mls/hr IV .Q24H [facility] Rx#:[id number] Heparin Sod,Pork in 0.45% 84.615 274.937 113.341 NaCl 25,000 unit In 0.45 % NaCl 1 250ml.bag @ 12 UNITS/KG/HR 8.712 mls/hr IV .Q24H [facility] Rx#: [id number] Insulin Regular 100 unit 79.377 49.028 31.327 In Sodium Chloride 0.9% 100 ml @ Per Protocol IV .Q0M [facility] Rx#:[id number] Norepinephrine 8 mg In 33.778 255.718 158.224 Sodium Chloride 0.9% 250 ml @ 0.05 MCG/KG/MIN 7.44 mls/hr IV .Q24H [facility] Rx#: [id number] Propofol 1,000 mg In 33.400 Empty Bag 1 bag @ Titrate IV .Q0M [facility] Rx#: [id number] Propofol 1,000 mg In 123.088 100 200.000 Empty Bag 1 bag @ Titrate IV .Q0M [facility] Rx#: [id number] Tube Feeding 386 521 304 Other 60 90 30 Output: Drainage 2800 1200 Left upper quadrant 2800 1200 ostomy Urine 0528 664 6360 Stool 350 300 Other: Voiding Method Indwelling Catheter Indwelling Catheter Indwelling Catheter # Voids 1 1 ABP, PAP, CO, CI - Last Documented Arterial Blood Pressure 98/42 - Exam PHYSICAL EXAMINATION: GENERAL: Intubated sedated, fully catheter in place HEENT: Pupils are round and equally reacting to light. EOMI. No scleral icterus. No conjunctival pallor. Normocephalic, atraumatic. No pharyngeal erythema. No thyromegaly. CARDIOVASCULAR: S1 and S2 present. No murmurs, rubs, or gallops. Tachycardic PULMONARY: Bilateral expiratory wheezing was appreciated ABDOMEN: Bowel sounds are absent jejunostomy tube in patient is also on total parenteral nutrition MUSCULOSKELETAL: No joint swelling or deformity. EXTREMITIES: No cyanosis, clubbing, or pedal edema. NEUROLOGICAL: Gross neurological examination did not reveal any focal deficits. SKIN: No rashes. - Labs CBC & Chem 7: 03/28/19 04:15 03/28/19 04:15 Labs: Abnormal Lab Results - Last 24 Hours (Table) 03/27/19 03/27/19 03/27/19 Range/Units 15:05 16:00 17:18 WBC (3.8-10.6) k/uL RBC (4.30-5.90) m/uL Hgb (13.0-17.5) gm/dL Hct (39.0-53.0) % Neutrophils # (1.3-7.7) k/uL Lymphocytes # (1.0-4.8) k/uL Monocytes # (0-1.0) k/uL APTT (22.0-30.0) sec ABG pCO2 (35-45) mmHg ABG pO2 (83-108) mmHg ABG HCO3 (21-25) mmol/L ABG O2 Saturation (94-97) % Potassium (3.5-5.1) mmol/L Chloride (98-107) mmol/L Carbon Dioxide (22-30) mmol/L BUN (9-20) mg/dL Creatinine (0.66-1.25) mg/dL Glucose (74-99) mg/dL POC Glucose (mg/dL) 193 H 213 H 193 H (75-99) mg/dL Calcium (8.4-10.2) mg/dL Phosphorus (2.5-4.5) mg/dL 03/27/19 03/27/19 03/27/19 Range/Units 18:20 19:00 20:07 WBC (3.8-10.6) k/uL RBC (4.30-5.90) m/uL Hgb (13.0-17.5) gm/dL Hct (39.0-53.0) % Neutrophils # (1.3-7.7) k/uL Lymphocytes # (1.0-4.8) k/uL Monocytes # (0-1.0) k/uL APTT (22.0-30.0) sec ABG pCO2 (35-45) mmHg ABG pO2 (83-108) mmHg ABG HCO3 (21-25) mmol/L ABG O2 Saturation (94-97) % Potassium (3.5-5.1) mmol/L Chloride (98-107) mmol/L Carbon Dioxide (22-30) mmol/L BUN (9-20) mg/dL Creatinine (0.66-1.25) mg/dL Glucose (74-99) mg/dL POC Glucose (mg/dL) 164 H 148 H 113 H (75-99) mg/dL Calcium (8.4-10.2) mg/dL Phosphorus (2.5-4.5) mg/dL 03/27/19 03/27/19 03/27/19 Range/Units 21:00 22:02 23:06 WBC (3.8-10.6) k/uL RBC (4.30-5.90) m/uL Hgb (13.0-17.5) gm/dL Hct (39.0-53.0) % Neutrophils # (1.3-7.7) k/uL Lymphocytes # (1.0-4.8) k/uL Monocytes # (0-1.0) k/uL APTT (22.0-30.0) sec ABG pCO2 (35-45) mmHg ABG pO2 (83-108) mmHg ABG HCO3 (21-25) mmol/L ABG O2 Saturation (94-97) % Potassium (3.5-5.1) mmol/L Chloride (98-107) mmol/L Carbon Dioxide (22-30) mmol/L BUN (9-20) mg/dL Creatinine (0.66-1.25) mg/dL Glucose (74-99) mg/dL POC Glucose (mg/dL) 122 H 149 H 153 H (75-99) mg/dL Calcium (8.4-10.2) mg/dL Phosphorus (2.5-4.5) mg/dL 03/28/19 03/28/19 03/28/19 Range/Units 00:14 01:00 02:01 WBC (3.8-10.6) k/uL RBC (4.30-5.90) m/uL Hgb (13.0-17.5) gm/dL Hct (39.0-53.0) % Neutrophils # (1.3-7.7) k/uL Lymphocytes # (1.0-4.8) k/uL Monocytes # (0-1.0) k/uL APTT (22.0-30.0) sec ABG pCO2 (35-45) mmHg ABG pO2 (83-108) mmHg ABG HCO3 (21-25) mmol/L ABG O2 Saturation (94-97) % Potassium (3.5-5.1) mmol/L Chloride (98-107) mmol/L Carbon Dioxide (22-30) mmol/L BUN (9-20) mg/dL Creatinine (0.66-1.25) mg/dL Glucose (74-99) mg/dL POC Glucose (mg/dL) 144 H 127 H 116 H (75-99) mg/dL Calcium (8.4-10.2) mg/dL Phosphorus (2.5-4.5) mg/dL 03/28/19 03/28/19 03/28/19 Range/Units 03:01 04:04 04:15 WBC (3.8-10.6) k/uL RBC (4.30-5.90) m/uL Hgb (13.0-17.5) gm/dL Hct (39.0-53.0) % Neutrophils # (1.3-7.7) k/uL Lymphocytes # (1.0-4.8) k/uL Monocytes # (0-1.0) k/uL APTT (22.0-30.0) sec ABG pCO2 (35-45) mmHg ABG pO2 (83-108) mmHg ABG HCO3 (21-25) mmol/L ABG O2 Saturation (94-97) % Potassium 5.6 H (3.5-5.1) mmol/L Chloride 110 H (98-107) mmol/L Carbon Dioxide 19 L (22-30) mmol/L BUN 72 H (9-20) mg/dL Creatinine 2.41 H (0.66-1.25) mg/dL Glucose 164 H (74-99) mg/dL POC Glucose (mg/dL) 125 H 157 H (75-99) mg/dL Calcium 8.2 L (8.4-10.2) mg/dL Phosphorus 6.3 H (2.5-4.5) mg/dL 03/28/19 03/28/19 03/28/19 Range/Units 04:15 04:45 04:59 WBC 30.9 H (3.8-10.6) k/uL RBC 3.14 L (4.30-5.90) m/uL Hgb 8.6 L (13.0-17.5) gm/dL Hct 27.0 L (39.0-53.0) % Neutrophils # 27.9 H (1.3-7.7) k/uL Lymphocytes # 0.7 L (1.0-4.8) k/uL Monocytes # 1.5 H (0-1.0) k/uL APTT 91.6 H (22.0-30.0) sec ABG pCO2 (35-45) mmHg ABG pO2 (83-108) mmHg ABG HCO3 (21-25) mmol/L ABG O2 Saturation (94-97) % Potassium (3.5-5.1) mmol/L Chloride (98-107) mmol/L Carbon Dioxide (22-30) mmol/L BUN (9-20) mg/dL Creatinine (0.66-1.25) mg/dL Glucose (74-99) mg/dL POC Glucose (mg/dL) 172 H (75-99) mg/dL Calcium (8.4-10.2) mg/dL Phosphorus (2.5-4.5) mg/dL 03/28/19 03/28/19 03/28/19 Range/Units 06:02 07:00 07:35 WBC (3.8-10.6) k/uL RBC (4.30-5.90) m/uL Hgb (13.0-17.5) gm/dL Hct (39.0-53.0) % Neutrophils # (1.3-7.7) k/uL Lymphocytes # (1.0-4.8) k/uL Monocytes # (0-1.0) k/uL APTT (22.0-30.0) sec ABG pCO2 30 L (35-45) mmHg ABG pO2 68 L (83-108) mmHg ABG HCO3 20 L (21-25) mmol/L ABG O2 Saturation 92.5 L (94-97) % Potassium (3.5-5.1) mmol/L Chloride (98-107) mmol/L Carbon Dioxide (22-30) mmol/L BUN (9-20) mg/dL Creatinine (0.66-1.25) mg/dL Glucose (74-99) mg/dL POC Glucose (mg/dL) 151 H 138 H (75-99) mg/dL Calcium (8.4-10.2) mg/dL Phosphorus (2.5-4.5) mg/dL 03/28/19 03/28/19 03/28/19 Range/Units 09:54 10:57 12:02 WBC (3.8-10.6) k/uL RBC (4.30-5.90) m/uL Hgb (13.0-17.5) gm/dL Hct (39.0-53.0) % Neutrophils # (1.3-7.7) k/uL Lymphocytes # (1.0-4.8) k/uL Monocytes # (0-1.0) k/uL APTT (22.0-30.0) sec ABG pCO2 (35-45) mmHg ABG pO2 (83-108) mmHg ABG HCO3 (21-25) mmol/L ABG O2 Saturation (94-97) % Potassium (3.5-5.1) mmol/L Chloride (98-107) mmol/L Carbon Dioxide (22-30) mmol/L BUN (9-20) mg/dL Creatinine (0.66-1.25) mg/dL Glucose (74-99) mg/dL POC Glucose (mg/dL) 202 H 215 H 194 H (75-99) mg/dL Calcium (8.4-10.2) mg/dL Phosphorus (2.5-4.5) mg/dL 03/28/19 03/28/19 03/28/19 Range/Units 13:03 13:05 14:30 WBC (3.8-10.6) k/uL RBC (4.30-5.90) m/uL Hgb (13.0-17.5) gm/dL Hct (39.0-53.0) % Neutrophils # (1.3-7.7) k/uL Lymphocytes # (1.0-4.8) k/uL Monocytes # (0-1.0) k/uL APTT 69.4 H (22.0-30.0) sec ABG pCO2 (35-45) mmHg ABG pO2 (83-108) mmHg ABG HCO3 (21-25) mmol/L ABG O2 Saturation (94-97) % Potassium (3.5-5.1) mmol/L Chloride (98-107) mmol/L Carbon Dioxide (22-30) mmol/L BUN (9-20) mg/dL Creatinine (0.66-1.25) mg/dL Glucose (74-99) mg/dL POC Glucose (mg/dL) 157 H 129 H (75-99) mg/dL Calcium (8.4-10.2) mg/dL Phosphorus (2.5-4.5) mg/dL Assessment and Plan Plan: Septic shock patient is on pressor support and the sepsis secondary to ischemic bowel. Patient started having fever again repeat blood cultures will be obtained and the vancomycin was restarted and infectious disease will be notified. Patient remains intubated no syncope in changes in his clinical condition neurology evaluated the patient as well. Patient does have pulmonary edema and is in atrial fibrillation. CAT scan of the head is concerning for subacute hematoma because of which neurology will evaluate the patient. EEG will be obtained -Coronary artery disease severe multivessel 33 vessel disease patient had dyspnea for 40-45% with mitral regurgitation, patient is bit volume overloaded receiving Lasix at this time IV fluids were cut down to 20 mL per hour patient is on antiplatelet statin for this -Proximal A. fib presently sinus rhythm with PVCs and patient is on amiodarone oral which will be continued -Ventilator dependent respiratory failure secondary to sepsis management as per pulmonology -Severe pulmonary hypertension -Hyperlipidemia -Type 2 diabetes mellitus continue with present regimen depending on his sliding scale requirements with titrate the insulin regimen -Chronic kidney disease stage III with some acute kidney injury from sepsis and acute tubular necrosis chronic kidney disease secondary to diabetic nephropathy Acute renal failure: Secondary to acute tubular necrosis and prerenal azotemia which is improving -COPD with acute exacerbation -Polycystic kidney disease -Hypertension patient is presently hypotensive and is in shock -History of bladder cancer with TURP in the past Patient's overall prognosis is poor his clinical condition is guarded now. Patient's CODE STATUS is DO NOT RESUSCITATE still believe patient is more for appropriate for hospice and comfort care as in spite of aggressive measures patient did not have any significant improvement in his overall clinical condition appears to be getting worse at this time.
[2019-03-28 15:49] LABS: Glucose,Whole Blood 149 mg/dL (75-99)
--- NOTE | 2019-03-28 15:50 | EEG ---
ELECTROENCEPHALOGRAM REPORT DATE OF SERVICE: 03/28/2019 PREAMBLE: This patient is a 73-year-old male with multiple medical and surgical issues, admitted with altered mental status. EEG FINDINGS: A portable 21-channel digital EEG recording was accomplished utilizing the 10/20 international system with bipolar and referential montages. The recording starts and continues with presence of diffuse [id number]-ps-yvtdvedp voltage activity in mixed theta and delta seen all over in bihemispheric areas. Photic driving response was not seen. Background does not seem to be reactive to any activation procedure. Different stages of sleep were not seen. No focal or generalized epileptiform activity was seen. EKG rhythm lead revealed some arrhythmia. IMPRESSION: This is an abnormal EEG due to severe background slowing. This is suggestive of generalized cerebral dysfunction, as can be seen with toxic metabolic encephalopathy or due to diffuse structural brain abnormality. Clinical correlation is recommended. No epileptiform activity was seen. MMODL / IJN: [id number] / MTDD
--- NOTE | 2019-03-28 15:50 | P.PN ---
Subjective Progress Note Date: 03/28/19 Patient continues to be comatose, also on sedation 50 g. Patient has developed fever, also is on Levophed. He does breathe over the ventilator. Objective - Vital Signs Vital signs: Vital Signs Temp 101 F H 03/28/19 13:00 Pulse 102 H 03/28/19 13:00 Resp 28 H 03/28/19 13:00 BP 118/70 03/28/19 13:00 Pulse Ox 96 03/28/19 13:00 Intake & Output 03/27/19 03/28/19 03/28/19 18:59 06:59 18:59 Intake Total 6325.950 8914.933 1290.658 Output Total 4025 1300 2620 Balance -2830.742 489.933 -1329.342 Weight 80.6 kg Intake: IV 394 430 215 .9 40 170 80 Diltiazem 125 mg In 5 60 35 Sodium Chloride 0.9% 100 ml @ 5 MG/HR 5 mls/hr IV .Q24H [facility] Rx#:[id number] Piperacillin-Tazobactam 3 100 .375 gm In Sodium Chloride 0.9% 100 ml @ 25 mls/hr IVPB Q8H [facility] Rx#: [id number] Piperacillin-Tazobactam 3 200 100 .375 gm In Sodium Chloride 0.9% 100 ml @ 25 mls/hr IVPB Q8HR [facility] Rx# :[id number] TPN 249 Intake, IV Titration 354.258 748.933 741.658 Amount Diltiazem 125 mg In 69.25 60.5 Sodium Chloride 0.9% 100 ml @ 5 MG/HR 5 mls/hr IV .Q24H [facility] Rx#:[id number] Heparin Sod,Pork in 0.45% 84.615 274.937 113.341 NaCl 25,000 unit In 0.45 % NaCl 1 250ml.bag @ 12 UNITS/KG/HR 8.712 mls/hr IV .Q24H [facility] Rx#: [id number] Insulin Regular 100 unit 79.377 49.028 31.327 In Sodium Chloride 0.9% 100 ml @ Per Protocol IV .Q0M [facility] Rx#:[id number] Norepinephrine 8 mg In 33.778 255.718 258.000 Sodium Chloride 0.9% 250 ml @ 0.05 MCG/KG/MIN 7.44 mls/hr IV .Q24H [facility] Rx#: [id number] Propofol 1,000 mg In 33.400 Empty Bag 1 bag @ Titrate IV .Q0M [facility] Rx#: [id number] Propofol 1,000 mg In 123.088 100 278.490 Empty Bag 1 bag @ Titrate IV .Q0M [facility] Rx#: [id number] Tube Feeding 386 521 304 Other 60 90 30 Output: Drainage 2800 1200 Left upper quadrant 2800 1200 ostomy Urine 8020 624 0355 Stool 350 300 Other: Voiding Method Indwelling Catheter Indwelling Catheter Indwelling Catheter # Voids 1 1 ABP, PAP, CO, CI - Last Documented Arterial Blood Pressure 98/42 - Exam Patient is intubated, also sedated on propofol 50 g. Patient does not respond to vocal or painful stimuli. Pupils are not clearly reacting. Oculocephalics absent. No corneal reflex. No seizure activity noted. - Labs CBC & Chem 7: 03/28/19 04:15 03/28/19 04:15 Labs: Abnormal Lab Results - Last 24 Hours (Table) 03/27/19 03/27/19 03/27/19 Range/Units 16:00 17:18 18:20 WBC (3.8-10.6) k/uL RBC (4.30-5.90) m/uL Hgb (13.0-17.5) gm/dL Hct (39.0-53.0) % Neutrophils # (1.3-7.7) k/uL Lymphocytes # (1.0-4.8) k/uL Monocytes # (0-1.0) k/uL APTT (22.0-30.0) sec ABG pCO2 (35-45) mmHg ABG pO2 (83-108) mmHg ABG HCO3 (21-25) mmol/L ABG O2 Saturation (94-97) % Potassium (3.5-5.1) mmol/L Chloride (98-107) mmol/L Carbon Dioxide (22-30) mmol/L BUN (9-20) mg/dL Creatinine (0.66-1.25) mg/dL Glucose (74-99) mg/dL POC Glucose (mg/dL) 213 H 193 H 164 H (75-99) mg/dL Calcium (8.4-10.2) mg/dL Phosphorus (2.5-4.5) mg/dL 03/27/19 03/27/19 03/27/19 Range/Units 19:00 20:07 21:00 WBC (3.8-10.6) k/uL RBC (4.30-5.90) m/uL Hgb (13.0-17.5) gm/dL Hct (39.0-53.0) % Neutrophils # (1.3-7.7) k/uL Lymphocytes # (1.0-4.8) k/uL Monocytes # (0-1.0) k/uL APTT (22.0-30.0) sec ABG pCO2 (35-45) mmHg ABG pO2 (83-108) mmHg ABG HCO3 (21-25) mmol/L ABG O2 Saturation (94-97) % Potassium (3.5-5.1) mmol/L Chloride (98-107) mmol/L Carbon Dioxide (22-30) mmol/L BUN (9-20) mg/dL Creatinine (0.66-1.25) mg/dL Glucose (74-99) mg/dL POC Glucose (mg/dL) 148 H 113 H 122 H (75-99) mg/dL Calcium (8.4-10.2) mg/dL Phosphorus (2.5-4.5) mg/dL 03/27/19 03/27/19 03/28/19 Range/Units 22:02 23:06 00:14 WBC (3.8-10.6) k/uL RBC (4.30-5.90) m/uL Hgb (13.0-17.5) gm/dL Hct (39.0-53.0) % Neutrophils # (1.3-7.7) k/uL Lymphocytes # (1.0-4.8) k/uL Monocytes # (0-1.0) k/uL APTT (22.0-30.0) sec ABG pCO2 (35-45) mmHg ABG pO2 (83-108) mmHg ABG HCO3 (21-25) mmol/L ABG O2 Saturation (94-97) % Potassium (3.5-5.1) mmol/L Chloride (98-107) mmol/L Carbon Dioxide (22-30) mmol/L BUN (9-20) mg/dL Creatinine (0.66-1.25) mg/dL Glucose (74-99) mg/dL POC Glucose (mg/dL) 149 H 153 H 144 H (75-99) mg/dL Calcium (8.4-10.2) mg/dL Phosphorus (2.5-4.5) mg/dL 03/28/19 03/28/19 03/28/19 Range/Units 01:00 02:01 03:01 WBC (3.8-10.6) k/uL RBC (4.30-5.90) m/uL Hgb (13.0-17.5) gm/dL Hct (39.0-53.0) % Neutrophils # (1.3-7.7) k/uL Lymphocytes # (1.0-4.8) k/uL Monocytes # (0-1.0) k/uL APTT (22.0-30.0) sec ABG pCO2 (35-45) mmHg ABG pO2 (83-108) mmHg ABG HCO3 (21-25) mmol/L ABG O2 Saturation (94-97) % Potassium (3.5-5.1) mmol/L Chloride (98-107) mmol/L Carbon Dioxide (22-30) mmol/L BUN (9-20) mg/dL Creatinine (0.66-1.25) mg/dL Glucose (74-99) mg/dL POC Glucose (mg/dL) 127 H 116 H 125 H (75-99) mg/dL Calcium (8.4-10.2) mg/dL Phosphorus (2.5-4.5) mg/dL 03/28/19 03/28/19 03/28/19 Range/Units 04:04 04:15 04:15 WBC 30.9 H (3.8-10.6) k/uL RBC 3.14 L (4.30-5.90) m/uL Hgb 8.6 L (13.0-17.5) gm/dL Hct 27.0 L (39.0-53.0) % Neutrophils # 27.9 H (1.3-7.7) k/uL Lymphocytes # 0.7 L (1.0-4.8) k/uL Monocytes # 1.5 H (0-1.0) k/uL APTT (22.0-30.0) sec ABG pCO2 (35-45) mmHg ABG pO2 (83-108) mmHg ABG HCO3 (21-25) mmol/L ABG O2 Saturation (94-97) % Potassium 5.6 H (3.5-5.1) mmol/L Chloride 110 H (98-107) mmol/L Carbon Dioxide 19 L (22-30) mmol/L BUN 72 H (9-20) mg/dL Creatinine 2.41 H (0.66-1.25) mg/dL Glucose 164 H (74-99) mg/dL POC Glucose (mg/dL) 157 H (75-99) mg/dL Calcium 8.2 L (8.4-10.2) mg/dL Phosphorus 6.3 H (2.5-4.5) mg/dL 03/28/19 03/28/19 03/28/19 Range/Units 04:45 04:59 06:02 WBC (3.8-10.6) k/uL RBC (4.30-5.90) m/uL Hgb (13.0-17.5) gm/dL Hct (39.0-53.0) % Neutrophils # (1.3-7.7) k/uL Lymphocytes # (1.0-4.8) k/uL Monocytes # (0-1.0) k/uL APTT 91.6 H (22.0-30.0) sec ABG pCO2 (35-45) mmHg ABG pO2 (83-108) mmHg ABG HCO3 (21-25) mmol/L ABG O2 Saturation (94-97) % Potassium (3.5-5.1) mmol/L Chloride (98-107) mmol/L Carbon Dioxide (22-30) mmol/L BUN (9-20) mg/dL Creatinine (0.66-1.25) mg/dL Glucose (74-99) mg/dL POC Glucose (mg/dL) 172 H 151 H (75-99) mg/dL Calcium (8.4-10.2) mg/dL Phosphorus (2.5-4.5) mg/dL 03/28/19 03/28/19 03/28/19 Range/Units 07:00 07:35 09:54 WBC (3.8-10.6) k/uL RBC (4.30-5.90) m/uL Hgb (13.0-17.5) gm/dL Hct (39.0-53.0) % Neutrophils # (1.3-7.7) k/uL Lymphocytes # (1.0-4.8) k/uL Monocytes # (0-1.0) k/uL APTT (22.0-30.0) sec ABG pCO2 30 L (35-45) mmHg ABG pO2 68 L (83-108) mmHg ABG HCO3 20 L (21-25) mmol/L ABG O2 Saturation 92.5 L (94-97) % Potassium (3.5-5.1) mmol/L Chloride (98-107) mmol/L Carbon Dioxide (22-30) mmol/L BUN (9-20) mg/dL Creatinine (0.66-1.25) mg/dL Glucose (74-99) mg/dL POC Glucose (mg/dL) 138 H 202 H (75-99) mg/dL Calcium (8.4-10.2) mg/dL Phosphorus (2.5-4.5) mg/dL 03/28/19 03/28/19 03/28/19 Range/Units 10:57 12:02 13:03 WBC (3.8-10.6) k/uL RBC (4.30-5.90) m/uL Hgb (13.0-17.5) gm/dL Hct (39.0-53.0) % Neutrophils # (1.3-7.7) k/uL Lymphocytes # (1.0-4.8) k/uL Monocytes # (0-1.0) k/uL APTT (22.0-30.0) sec ABG pCO2 (35-45) mmHg ABG pO2 (83-108) mmHg ABG HCO3 (21-25) mmol/L ABG O2 Saturation (94-97) % Potassium (3.5-5.1) mmol/L Chloride (98-107) mmol/L Carbon Dioxide (22-30) mmol/L BUN (9-20) mg/dL Creatinine (0.66-1.25) mg/dL Glucose (74-99) mg/dL POC Glucose (mg/dL) 215 H 194 H 157 H (75-99) mg/dL Calcium (8.4-10.2) mg/dL Phosphorus (2.5-4.5) mg/dL 03/28/19 03/28/19 03/28/19 Range/Units 13:05 14:30 15:07 WBC (3.8-10.6) k/uL RBC (4.30-5.90) m/uL Hgb (13.0-17.5) gm/dL Hct (39.0-53.0) % Neutrophils # (1.3-7.7) k/uL Lymphocytes # (1.0-4.8) k/uL Monocytes # (0-1.0) k/uL APTT 69.4 H (22.0-30.0) sec ABG pCO2 (35-45) mmHg ABG pO2 (83-108) mmHg ABG HCO3 (21-25) mmol/L ABG O2 Saturation (94-97) % Potassium (3.5-5.1) mmol/L Chloride (98-107) mmol/L Carbon Dioxide (22-30) mmol/L BUN (9-20) mg/dL Creatinine (0.66-1.25) mg/dL Glucose (74-99) mg/dL POC Glucose (mg/dL) 129 H 139 H (75-99) mg/dL Calcium (8.4-10.2) mg/dL Phosphorus (2.5-4.5) mg/dL Assessment and Plan Assessment: * Altered mental status, likely related to toxic metabolic encephalopathy. * Status post acute NM * Status post laparotomy for ischemic bowel on 02/19/2019. * Ventilator-dependent respiratory failure on mechanical ventilation * Atrial fibrillation, on anticoagulation with IV heparin. 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 * COPD * Atherosclerotic cerebrovascular disease * Acute renal failure, with polycystic kidney disease * Anemia Plan: * Patient apparently seems to have severe toxic metabolic encephalopathy. * EEG showed severe background slowing, consistent with toxic metabolic ence phalopathy. No epileptiform activity was seen. * Prognosis mainly depends upon underlying other medical and surgical conditions. * Computed tomography scan of head was reviewed, which revealed small vessel disease with no acute process. * Your medical management. * We will follow clinically.
[2019-03-28] MEDS ORDERED: VANCOMYCIN 1,500 MG in SODIUM CHLORIDE 0.9% 250 ML IVPB ONE (16:00)
[2019-03-28 16:44] LABS: Glucose,Whole Blood 162 mg/dL (75-99)
[2019-03-28 18:10] LABS: Glucose,Whole Blood 189 mg/dL (75-99)
[2019-03-28 19:06] LABS: Glucose,Whole Blood 140 mg/dL (75-99)
[2019-03-28] MEDS: INSULIN REGULAR 100 UNIT in SODIUM CHLORIDE 0.9% 100 ML IV SCH (20:13)
[2019-03-28 20:14] LABS: Glucose,Whole Blood 121 mg/dL (75-99)
[2019-03-28] MEDS: SODIUM CHLORIDE 0.9% 1,000 ML IV SCH (20:15)
[2019-03-28 21:12] LABS: Glucose,Whole Blood 108 mg/dL (75-99)
[2019-03-28] MEDS: ATORVASTATIN 80 MG TAB PO SCH (21:25)
[2019-03-28 22:05] LABS: Glucose,Whole Blood 121 mg/dL (75-99)
[2019-03-28 23:07] LABS: Glucose,Whole Blood 145 mg/dL (75-99)
--- NOTE | 2019-03-28 23:14 | CONS ---
CONSULTATION DATE OF SERVICE: 03/28/2019 REASON FOR CONSULTATION: Fever and leukocytosis. HISTORY OF PRESENT ILLNESS: The patient is a 73-year-old male presenting to the ER at [facility] almost 2 weeks ago on March 13, 2019, with abdominal pain. The patient subsequently was diagnosed with a small-bowel obstruction and the patient is status post laparotomy on March 21, 2019. This patient was noted to have small bowel ischemia perforation. The patient is status post small-bowel resection and diverting jejunostomy. The patient has been on the vent and was receiving TPN. This was discontinued 2 days ago and the patient was started on tube feeds, which the patient has been tolerating. The patient did have output in his jejunostomy site. The patient did have a left IJ and arterial line and has been treated with Zosyn. The patient has been relatively febrile with some low-grade fever of 99.7 to 100.1; however, he did spike a fever of 101 degrees Fahrenheit this afternoon. The patient did have an elevated white count since surgery, when his white count was 19.3; however, that has been up to 30,000 today, for which Infectious Disease was consulted for further recommendations. The patient is currently sedated, on the vent, unable to provide any history. The patient is currently on low-dose pressor in the form of Levophed. That had to be slightly increased today, as the patient's sedation was increased because of the patient fighting the vent per the RN. All other information from review of the chart and talking to family, as the patient is unable to provide any reliable history. REVIEW OF SYSTEMS: Review of systems could not be reliably obtained, though the positive points have been mentioned in the HPI. PAST MEDICAL HISTORY: Past medical history is significant for: 1. COPD. 2. IA. 3. Hypertension. 4. Hyperlipidemia. 5. Diabetes mellitus. 6. . 7. Polycystic kidney disease. 8. Bladder cancer. PAST SURGICAL HISTORY: 1. Cardiac catheterization. 2. TURP. SOCIAL HISTORY: Positive for smoking more than 55 pack/years of smoking. Occasionally drinks. No drug use. FAMILY HISTORY: Brother with history of coronary artery disease. ALLERGIES: NO KNOWN DRUG ALLERGIES. MEDICATIONS: Medications currently include: 1. Zosyn 3.375 grams q.8 hours. 2. Tylenol. 3. DuoNeb. 4. Xanax. 5. Amiodarone. 6. Aspirin. 7. Lipitor. 8. Diltiazem. 9. Lasix. 10.Heparin. 11.Hydralazine. 12.Vancomycin, Pharmacy to dose. 13.Norepinephrine. 14.Senokot. PHYSICAL EXAMINATION: Blood pressure 135/54 with a pulse of 70, temperature of 98, T-max 101. He is 97% on 40% FiO2. General description is an elderly male lying in bed in no distress. No tachypnea or accessory muscle of respiration use. HEENT examination shows pallor. No scleral icterus. The patient is orally intubated, limiting examination of oral cavity. NECK: Trachea central. No thyromegaly. LUNGS: Unlabored breathing. Decreased breath sounds in the bases. No wheeze or crackle. HEART: S1, S2. Regular rate and rhythm. ABDOMEN: Soft. Midline incision looks clean. Jejunostomy did have liquidy stool. EXTREMITIES: Some trace edema of feet. SKIN EXAMINATION: No rash or mass palpable. NEUROLOGIC: The patient is currently sedated on the vent. LABS/IMAGING: Hemoglobin 8.6, white count 30,000. BUN of 72, creatinine 2.41. Electrolytes: Potassium is 5.6. UA on admission was negative. Hepatitis serology negative. Sputum has Mayelin albicans; that was on 03/22. Repeat sputum has been obtained and is currently pending. Blood culture on 03/14 was negative. Blood culture has been repeated today. Chest x-ray shows vascular congestion without markus edema. Heart is mildly enlarged. Bilateral effusion and bibasilar airspace disease. DIAGNOSTIC IMPRESSION AND PLAN: 1. Patient with sepsis in this patient who did have a fever and elevated white count in this patient who has a history of small-bowel obstruction from small-bowel ischemia and perforation, status post laparotomy, small-bowel resection and diverting jejunostomy. This patient has been on good Gram-negative coverage; however, now with the fever and significant jump in the white count, it could be related to a Gram-positive skin yoshi in this patient currently with multiple IV access sites that may be contributing to some of this fever and elevated white count. The patient's abdomen was soft. Incision looks clean. Worsening output in secretion through the ET has been noted and recent sputum culture has been showing Mayelin albicans. 2. Patient with renal insufficiency and high risk of nephrotoxicity from the vancomycin. PLAN: 1. Blood culture has been obtained as well as sputum. Those will be followed. 2. Zosyn to continue. However, discontinue vancomycin to decrease the risk of nephrotoxicity and add daptomycin to cover for the Gram-positive. 3. We will follow up on his clinical condition and culture to further adjust medication if needed. Thank you for this consultation. Will follow this patient along with you. Family at the bedside. Their questions were answered. MMODL / IJN: [id number] /
[2019-03-29] LABS: Glucose,Whole Blood 160 mg/dL (75-99)
[2019-03-29] MEDS: HYDROmorphone 1 MG/ML 1 ML SYRINGE IVP PRN ×2 (00:13→14:40)
[2019-03-29 01:00] LABS: Glucose,Whole Blood 158 mg/dL (75-99)
[2019-03-29] MEDS: PROPOFOL 1,000 MG in EMPTY BAG 1 BAG IV SCH ×4 (01:18→23:37)
[2019-03-29 02:08] LABS: Glucose,Whole Blood 144 mg/dL (75-99)
[2019-03-29 04:02] LABS: Glucose,Whole Blood 151 mg/dL (75-99)
[2019-03-29 05:06] LABS: Glucose,Whole Blood 150 mg/dL (75-99)
[2019-03-29 06:04] LABS: Basophils # (A) 0.1 k/uL (0-0.2); Basophils % (A) 1 %; Eosinophils # (A) 0.2 k/uL (0-0.7); Eosinophils % (A) 1 %; HCT 25.9 % (39.0-53.0); HGB 8.3 gm/dL (13.0-17.5); Lymphocytes # (A) 0.5 k/uL (1.0-4.8); Lymphocytes % (A) 2 %; MCH 27.8 pg (25.0-35.0); MCHC 32.1 g/dL (31.0-37.0); MCV 86.4 fL (80.0-100.0); Mean Platelet Volume 9.3; Monocytes # (A) 0.9 k/uL (0-1.0); Monocytes % (A) 4 %; Neutrophils # (A) 22.9 k/uL (1.3-7.7); Neutrophils % (A) 92 %; Platelet Count 427 k/uL (150-450); RDW 15.6 % (11.5-15.5); WBC 24.9 k/uL (3.8-10.6)
[2019-03-29 06:21] LABS: Glucose,Whole Blood 138 mg/dL (75-99)
[2019-03-29 06:32] LABS: Magnesium 2.3 mg/dL (1.6-2.3); Phosphorus 5.2 mg/dL (2.5-4.5); Potassium 4.5 mmol/L (3.5-5.1)
--- NOTE | 2019-03-29 06:47 | XR ---
EXAMINATION TYPE: XR chest 1V DATE OF EXAM: 03/29/2019 CLINICAL HISTORY: Difficulty breathing progress study. TECHNIQUE: Single AP portable upright view of the chest is obtained. COMPARISON: Chest x-ray from one day earlier and older studies. FINDINGS: An endotracheal tube, orogastric tube, and left internal jugular central venous catheter a re all stable in appearance. Background Chronic emphysematous change with bibasilar opacities remains present. Upper lungs remain clear without pneumothorax. Cardiac silhouette size stable and mildly en larged with atherosclerotic aorta. Multilevel spurring in the spine. IMPRESSION: Overall stable findings, chronic emphysematous change and mild cardiomegaly with small bilateral pleural effusions and associated bibasilar acute atelectasis and/or infiltrate are all rede monstrated.
[2019-03-29 07:02] LABS: Glucose,Whole Blood 148 mg/dL (75-99)
[2019-03-29] MEDS: IPRATROPIUM-ALBUTEROL 3 ML NEB INHALATION SCH ×4 (07:42→19:48)
[2019-03-29 07:48] LABS: ABG Base Excess -5.8 mmol/L; ABG HCO3 19 mmol/L (21-25); ABG Oxygen Saturation 97.5 % (94-97); ABG PCO2 30 mmHg (35-45); ABG PH 7.41 (7.35-7.45); ABG PO2 102 mmHg (83-108); ABG TCO2 20 mmol/L (19-24)
[2019-03-29] MEDS: PIPERACILLIN-TAZOBACTAM 3.375 GM in SODIUM CHLORIDE 0.9% 100 ML IVPB SCH ×2 (08:53→17:13)
[2019-03-29] MEDS: DAPTOmycin 500 MG in SODIUM CHLORIDE 0.9% 50 ML IVPB SCH (08:55)
[2019-03-29] MEDS: FUROSEMIDE 10 MG/ML 4 ML VIAL IV SCH (08:55)
[2019-03-29] MEDS: CHLORHEXIDINE GLUCONATE 15 ML CUP MUCOUS MEM SCH ×2 (08:55→20:19)
[2019-03-29] MEDS: PANTOPRAZOLE 40 MG/10 ML VIAL IVP SCH (08:55)
[2019-03-29] MEDS: METOPROLOL TARTRATE 25 MG TAB PO SCH ×2 (08:57→20:19)
[2019-03-29] MEDS: ASPIRIN 81 MG PO SCH (08:57)
[2019-03-29] MEDS: AMIODARONE 200 MG TAB PO SCH ×3 (08:57→20:19)
[2019-03-29] MEDS: FENOFIBRATE 160 MG TAB PO SCH (08:58)
[2019-03-29 10:00] LABS: Glucose,Whole Blood 117 mg/dL (75-99)
--- NOTE | 2019-03-29 10:08 | P.PN ---
Subjective Progress Note Date: 03/29/19 This 73-year-old gentleman is is still intubated. Attempt to extubate him yesterday resultant tachypnea and tachycardia. Another weaning trial will be done today. He is in paroxysmal atrial fibrillation. I'm going to initiate him on beta luisa along with increasing the dose of the Po amiodarone. Patient has received Lasix and had some urine output yesterday. His creatinine is 1.8. Continue the rest of the medication. 03/25/2019: This is 73 old gentleman was admitted after cardiac catheterization for hydration. 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 Subsequently, patient developed findings consistent CHF and non-STEMI. He also developed atrial fibrillation with a rapid ventricular response. Subsequently was noted to have ischemic bowel and had surgery done. Patient seemed to be Hemodynamically stable at this time. His weaning attempts resultant tachypnea and tachycardia. Patient's adrenal function symptomatically improving. Creatinine is 1.8. The chest x-ray also shows improvement. CBC shows elevated white count. Could be related to steroids. We'll continue current medical therapy. Another attempt will be made to wean him off the respirator. 03/26/2019: This patient is still in intensive care unit intubated and sedated. Apparently there is concerned about her neurological status. He will not stopping the sedation for 2 hours, patient remained unresponsive. Computed tomography scan showed cerebral atrophy. MRI scan is being recommended. Neurology consult is pending. Patient is maintaining sinus rhythm on amiodarone. Overall his prognosis seems to be guarded. We'll continue current medical therapy. Pulmonology has updated the patient's family. 03/27/2019: This patient is still intubated. There is a question about is her neurological status. Neurology consult is pending. Hemodynamically patient is back in atrial fibrillation with moderately fast and corresponds. I'm going to increase the dose of the metoprolol. Patient is already on anticoagulation. Chest x-ray shows some improvement. Attempts at weaning seems to resultant t achypnea and tachycardia. Patient may need a tracheostomy. Overall prognosis is guarded 03/28/2019: Patient is still intubated. Weaning attempts were unsuccessful. Patient becomes tachypneic and tachycardic. Pt is in atrial fibrillation. Patient was started on IV Cardizem last night and apparently developed Sigmund bradycardia. Patient is back on a IV Cardizem. His heart rate is in the 110 range. He is also not effective.. His neurological status is in doubt. Patient needs an MRI which cannot be done. Patient maintained a tracheostomy and also PEG tube. Family is not in favor of these measures. May consider hospice care. Meanwhile we'll continue current medical therapy. Prognosis appears to be poor. 03/29/2019: This patient was admitted with relief for outpatient cardiac catheterization. Was found to have significant coronary artery disease involving the 3 vessels including proximal LAD. Had FFR of the LAD lesion to confirm the significance. Patient was being considered for revascularization and was seen by her cardiac surgeons also. Unfortunately subsequently developed CHF, non-STEMI episodes of atrial fibrillation and also small bowel obstruction. Underwent surgery for small bowel obstruction. Patient has been intubated for a long time. Attempts at weaning, resultant tachypnea and tachycardia. Also requiring pressors for blood pressure support. She has been on anticoagulation but has been going in and out of atrial fibrillation. Patient's may need tracheostomy and PEG tube but family is not inclined. Prognosis appears to be poor. Possibility of possible hospice care Objective - Vital Signs Vital signs: Vital Signs Temp 98.3 F 03/29/19 04:00 Pulse 66 03/29/19 07:55 Resp 22 03/29/19 07:00 BP 121/56 03/29/19 07:00 Pulse Ox 98 03/29/19 07:00 Intake & Output 03/28/19 03/29/19 03/29/19 18:59 06:59 18:59 Intake Total 2173.754 1528.924 146.93 Output Total 3620 1805 400 Balance -1446.246 -276.076 -253.07 Weight 79.3 kg Intake: IV 665 340 20 .9 180 240 20 Diltiazem 125 mg In 35 Sodium Chloride 0.9% 100 ml @ 5 MG/HR 5 mls/hr IV .Q24H [facility] Rx#:[id number] Piperacillin-Tazobactam 3 200 100 .375 gm In Sodium Chloride 0.9% 100 ml @ 25 mls/hr IVPB Q8HR [facility] Rx# :[id number] Vancomycin 1,500 mg In 250 Sodium Chloride 0.9% 250 ml @ 125 mls/hr IVPB ONCE ONE Rx#:[id number] Intake, IV Titration 929.754 577.924 83.93 Amount Diltiazem 125 mg In 60.5 Sodium Chloride 0.9% 100 ml @ 5 MG/HR 5 mls/hr IV .Q24H [facility] Rx#:[id number] Heparin Sod,Pork in 0.45% 113.341 NaCl 25,000 unit In 0.45 % NaCl 1 250ml.bag @ 12 UNITS/KG/HR 8.712 mls/hr IV .Q24H [facility] Rx#: [id number] Insulin Regular 100 unit 55.197 45.542 12.12 In Sodium Chloride 0.9% 100 ml @ Per Protocol IV .Q0M [facility] Rx#:[id number] Norepinephrine 8 mg In 422.226 232.382 Sodium Chloride 0.9% 250 ml @ 0.05 MCG/KG/MIN 7.44 mls/hr IV .Q24H [facility] Rx#: [id number] Propofol 1,000 mg In 278.490 300 71.81 Empty Bag 1 bag @ Titrate IV .Q0M [facility] Rx#: [id number] Tube Feeding 519 521 43 Other 60 90 Output: Drainage 1800 Left upper quadrant 1800 ostomy Urine 1520 1255 100 Stool 300 550 300 Other: Voiding Method Indwelling Catheter Indwelling Catheter # Voids 1 ABP, PAP, CO, CI - Last Documented Arterial Blood Pressure 129/38 - Exam GENERAL EXAM: Patient is intubated HEENT: Normocephalic. NECK: No masses, no nuchal rigidity. CHEST: No chest wall deformity. LUNGS: Diminished breath sounds at bases HEART: S1 and S2 normal. Irregular heart rhythm ABDOMEN: No hepatosplenomegaly, normal bowel sounds, no guarding or rigidity. SKIN: No rashes CENTRAL NERVOUS SYSTEM: Not assessed EXTREMITIES: No cyanosis, clubbing or edema. - Labs CBC & Chem 7: 03/29/19 05:40 03/29/19 05:40 Labs: Abnormal Lab Results - Last 24 Hours (Table) 03/28/19 03/28/19 03/28/19 Range/Units 10:57 12:02 13:03 WBC (3.8-10.6) k/uL RBC (4.30-5.90) m/uL Hgb (13.0-17.5) gm/dL Hct (39.0-53.0) % RDW (11.5-15.5) % Neutrophils # (1.3-7.7) k/uL Lymphocytes # (1.0-4.8) k/uL APTT (22.0-30.0) sec ABG pCO2 (35-45) mmHg ABG HCO3 (21-25) mmol/L ABG O2 Saturation (94-97) % Chloride (98-107) mmol/L Carbon Dioxide (22-30) mmol/L BUN (9-20) mg/dL Creatinine (0.66-1.25) mg/dL Glucose (74-99) mg/dL POC Glucose (mg/dL) 215 H 194 H 157 H (75-99) mg/dL Calcium (8.4-10.2) mg/dL Phosphorus (2.5-4.5) mg/dL 03/28/19 03/28/19 03/28/19 Range/Units 13:05 14:30 15:07 WBC (3.8-10.6) k/uL RBC (4.30-5.90) m/uL Hgb (13.0-17.5) gm/dL Hct (39.0-53.0) % RDW (11.5-15.5) % Neutrophils # (1.3-7.7) k/uL Lymphocytes # (1.0-4.8) k/uL APTT 69.4 H (22.0-30.0) sec ABG pCO2 (35-45) mmHg ABG HCO3 (21-25) mmol/L ABG O2 Saturation (94-97) % Chloride (98-107) mmol/L Carbon Dioxide (22-30) mmol/L BUN (9-20) mg/dL Creatinine (0.66-1.25) mg/dL Glucose (74-99) mg/dL POC Glucose (mg/dL) 129 H 139 H (75-99) mg/dL Calcium (8.4-10.2) mg/dL Phosphorus (2.5-4.5) mg/dL 03/28/19 03/28/19 03/28/19 Range/Units 15:48 16:43 18:09 WBC (3.8-10.6) k/uL RBC (4.30-5.90) m/uL Hgb (13.0-17.5) gm/dL Hct (39.0-53.0) % RDW (11.5-15.5) % Neutrophils # (1.3-7.7) k/uL Lymphocytes # (1.0-4.8) k/uL APTT (22.0-30.0) sec ABG pCO2 (35-45) mmHg ABG HCO3 (21-25) mmol/L ABG O2 Saturation (94-97) % Chloride (98-107) mmol/L Carbon Dioxide (22-30) mmol/L BUN (9-20) mg/dL Creatinine (0.66-1.25) mg/dL Glucose (74-99) mg/dL POC Glucose (mg/dL) 149 H 162 H 189 H (75-99) mg/dL Calcium (8.4-10.2) mg/dL Phosphorus (2.5-4.5) mg/dL 03/28/19 03/28/19 03/28/19 Range/Units 19:05 20:12 21:11 WBC (3.8-10.6) k/uL RBC (4.30-5.90) m/uL Hgb (13.0-17.5) gm/dL Hct (39.0-53.0) % RDW (11.5-15.5) % Neutrophils # (1.3-7.7) k/uL Lymphocytes # (1.0-4.8) k/uL APTT (22.0-30.0) sec ABG pCO2 (35-45) mmHg ABG HCO3 (21-25) mmol/L ABG O2 Saturation (94-97) % Chloride (98-107) mmol/L Carbon Dioxide (22-30) mmol/L BUN (9-20) mg/dL Creatinine (0.66-1.25) mg/dL Glucose (74-99) mg/dL POC Glucose (mg/dL) 140 H 121 H 108 H (75-99) mg/dL Calcium (8.4-10.2) mg/dL Phosphorus (2.5-4.5) mg/dL 03/28/19 03/28/19 03/28/19 Range/Units 22:03 23:05 23:59 WBC (3.8-10.6) k/uL RBC (4.30-5.90) m/uL Hgb (13.0-17.5) gm/dL Hct (39.0-53.0) % RDW (11.5-15.5) % Neutrophils # (1.3-7.7) k/uL Lymphocytes # (1.0-4.8) k/uL APTT (22.0-30.0) sec ABG pCO2 (35-45) mmHg ABG HCO3 (21-25) mmol/L ABG O2 Saturation (94-97) % Chloride (98-107) mmol/L Carbon Dioxide (22-30) mmol/L BUN (9-20) mg/dL Creatinine (0.66-1.25) mg/dL Glucose (74-99) mg/dL POC Glucose (mg/dL) 121 H 145 H 160 H (75-99) mg/dL Calcium (8.4-10.2) mg/dL Phosphorus (2.5-4.5) mg/dL 03/29/19 03/29/19 03/29/19 Range/Units 00:58 02:06 04:01 WBC (3.8-10.6) k/uL RBC (4.30-5.90) m/uL Hgb (13.0-17.5) gm/dL Hct (39.0-53.0) % RDW (11.5-15.5) % Neutrophils # (1.3-7.7) k/uL Lymphocytes # (1.0-4.8) k/uL APTT (22.0-30.0) sec ABG pCO2 (35-45) mmHg ABG HCO3 (21-25) mmol/L ABG O2 Saturation (94-97) % Chloride (98-107) mmol/L Carbon Dioxide (22-30) mmol/L BUN (9-20) mg/dL Creatinine (0.66-1.25) mg/dL Glucose (74-99) mg/dL POC Glucose (mg/dL) 158 H 144 H 151 H (75-99) mg/dL Calcium (8.4-10.2) mg/dL Phosphorus (2.5-4.5) mg/dL 03/29/19 03/29/19 03/29/19 Range/Units 05:05 05:40 05:40 WBC 24.9 H (3.8-10.6) k/uL RBC 3.00 L (4.30-5.90) m/uL Hgb 8.3 L (13.0-17.5) gm/dL Hct 25.9 L (39.0-53.0) % RDW 15.6 H (11.5-15.5) % Neutrophils # 22.9 H (1.3-7.7) k/uL Lymphocytes # 0.5 L (1.0-4.8) k/uL APTT (22.0-30.0) sec ABG pCO2 (35-45) mmHg ABG HCO3 (21-25) mmol/L ABG O2 Saturation (94-97) % Chloride 114 H (98-107) mmol/L Carbon Dioxide 20 L (22-30) mmol/L BUN 69 H (9-20) mg/dL Creatinine 2.32 H (0.66-1.25) mg/dL Glucose 143 H (74-99) mg/dL POC Glucose (mg/dL) 150 H (75-99) mg/dL Calcium 8.0 L (8.4-10.2) mg/dL Phosphorus 5.2 H (2.5-4.5) mg/dL 03/29/19 03/29/19 03/29/19 Range/Units 05:40 06:19 07:00 WBC (3.8-10.6) k/uL RBC (4.30-5.90) m/uL Hgb (13.0-17.5) gm/dL Hct (39.0-53.0) % RDW (11.5-15.5) % Neutrophils # (1.3-7.7) k/uL Lymphocytes # (1.0-4.8) k/uL APTT 66.7 H (22.0-30.0) sec ABG pCO2 (35-45) mmHg ABG HCO3 (21-25) mmol/L ABG O2 Saturation (94-97) % Chloride (98-107) mmol/L Carbon Dioxide (22-30) mmol/L BUN (9-20) mg/dL Creatinine (0.66-1.25) mg/dL Glucose (74-99) mg/dL POC Glucose (mg/dL) 138 H 148 H (75-99) mg/dL Calcium (8.4-10.2) mg/dL Phosphorus (2.5-4.5) mg/dL 03/29/19 03/29/19 Range/Units 07:42 09:59 WBC (3.8-10.6) k/uL RBC (4.30-5.90) m/uL Hgb (13.0-17.5) gm/dL Hct (39.0-53.0) % RDW (11.5-15.5) % Neutrophils # (1.3-7.7) k/uL Lymphocytes # (1.0-4.8) k/uL APTT (22.0-30.0) sec ABG pCO2 30 L (35-45) mmHg ABG HCO3 19 L (21-25) mmol/L ABG O2 Saturation 97.5 H (94-97) % Chloride (98-107) mmol/L Carbon Dioxide (22-30) mmol/L BUN (9-20) mg/dL Creatinine (0.66-1.25) mg/dL Glucose (74-99) mg/dL POC Glucose (mg/dL) 117 H (75-99) mg/dL Calcium (8.4-10.2) mg/dL Phosphorus (2.5-4.5) mg/dL Microbiology - Last 24 Hours (Table) 03/28/19 13:00 Gram Stain - Preliminary Sputum Sputum Culture - Preliminary Assessment and Plan (1) Triple vessel disease of the heart Current Visit: Yes Status: Acute Code(s): I25.10 - ATHSCL HEART DISEASE OF [place] CORONARY ARTERY W/O ANG PCTRS SNOMED Code(s): 560330320 (2) Acute exacerbation of chronic obstructive airways disease Current Visit: No Status: Acute Code(s): J44.1 - CHRONIC OBSTRUCTIVE PULMONARY DISEASE W (ACUTE) EXACERBATION SNOMED Code(s): 765719127 (3) Pulmonary edema Current Visit: Yes Status: Acute Code(s): J81.1 - CHRONIC PULMONARY EDEMA SNOMED Code(s): 24863574 Plan: Patient is back in sinus rhythm. Chest x-ray doesn't show any significant CHF. However neurological status doesn't improve. Patient is still intubated. Patient was seen by Dr. Kidd and made some adjustment with the antibiotic coverage. Prognosis is poor
[2019-03-29 10:52] LABS: Glucose,Whole Blood 123 mg/dL (75-99)
--- NOTE | 2019-03-29 11:02 | P.PN ---
Subjective Progress Note Date: 03/29/19 Principal diagnosis: acute hypoxic respiratory failure, multifactorial on 03/24/2019 the patient is postop day #3. The patient underwent bowel resection for an acute ischemic bowel and the patient underwent small bowel resection, ileal resection, jejunal resection with diverting jejunostomy. A breeze spontaneous breathing trial was given to him yesterday. The patient feels he became tachypneic and tachycardic and restless. This was aborted. The same will be done today. I feel that he is essentially stable. He remains on a mechanical ventilator on assist control mode at the rate of 12 with a tidal volume of 500 and FiO2 of 40% with a PEEP of 5. Chest x-ray showing pulmonary vascular congestion/small effusion the lungs left more than right. ET tube is in a good location. He is a left IJ triple lumen catheter in place. The patient was given a dose of Lasix yesterday. He did produce some urine output. His creatinine is down to 1.8. The neck fluid balance is +600 mL over the past 24 hours. The creatinine is improving. He is on and off in atrial fibrillati on. After being taken off the amiodarone drip, he was placed on oral amiodarone and this morning is back into atrial fibrillation with a controlled rate. His heart rate goes sometimes in the low 100s. The patient was seen by cardiology. Metoprolol was added. His amiodarone dose was also increased up to 200 mg 3 times a day. He is on IV heparin. He is on norepinephrine infusion which is running at a low backup rate of 0.09 g per KG per minute. He is receiving TPN for nutritional support. He is afebrile for now. All of the cultures of been negative thus far..Note that the patient has COPD,, his FEV1 is normal to 52% of predicted, he has history of diabetes and history of bladder cancer and he has history of stage III kidney disease with polycystic kidney disease disorder. Reevaluated today on 03/25/2019, patient remains on mechanical ventilation, intubated, sedated, ventilator settings are assist control rate of 12, tidal volume is 500 FiO2 40% PEEP of 5. Patient remains on insulin drip, norepinephrine drip at 0.07 mcg/kg/m, remains on propofol which I have discontinued, he is on heparin drip and on TPN. Patient is postoperative day #4. Chest x-ray showed minimal hazy densities at the bases, most likely atelectasis and possibly a small pleural effusion noted. Labs showed the PEEP cigar 20.8 hemoglobin 8.9 ABG showed a pO2 of 98 pCO2 of 40 pH of 7.40. Renal functioning is about the same, creatinine is 1.86. Patient remains on TPN. Patient is not responsive to any stimuli, hence I have discontinued his propofol, and I have switched him to a pressure support and CPAP with a pressure support of 12, previous trial of weaning have failed by Dr. Aguiar, patient developed significant tachypnea and tachycardia with CPAP, however I will try adding pressure support of 12, and we will closely monitor for potential extubation if his mental status improves. Reevaluated today on 03/26/2019, patient remains in the intensive care unit, on mechanical ventilation. Tidal volume is 500 assist control rate of 12 FiO2 is 40% and PEEP is 5. Remains on levo fed at 0.05 mcg/kg/m, still requiring propofol, insulin drip, and he is on heparin drip. Mental status is extremely poor, patient has been off propofol now for the last 2 hours, and does not seem to be waking up to follow any instructions at this point yet. Yesterday he was off sedation for 4 hours, and he was getting extremely agitated, had to be placed back on assist control mode of mechanical ventilation, and placed back on sedation. We plan to continue to do so today. Family is at bedside, however I'm a bit concerned about his mental status, even off sedation the patient does not seem to respond to any stimuli including deep painful stimuli. I would recommend a CT of the brain, I would also recommend a neurological consultation on this patient.labs today werelabs today were all reviewed.WBC count is 19.9 hemoglobin is 8.5. ABG showed a pO2 of 102 pCO2 of 32 pH of 7.45.renal profile is a bit improving BUN is 66 creatinine is 1.85. Family is at bedside, and updated on his condition. CT of the brain showed cerebral atrophy, age-related, chronic small vessel ischemia, difficult to rule out subacute ischemia. His basal ganglia showed asymmetry, hence MRI was recommended by the radiologist. Will leave that decision to the neurologist whom I will consult today.chest x- ray showed overall stable findings, chronic emphysematous changes, small pleural effusions, and minimal bibasilar atelectasis. Reevaluated today on 03/27/2019, remains intubated and mechanically ventilated. His ventilator settings are basically the same, patient is on tidal volume of 500 assist control rate of 12 FiO2 of 40% and PEEP of 5. ABG this morning showed a pO2 of 73 pCO2 of 29 pH of 7.45. Chest x-ray is showing evidence of interstitial edema. Patient is having intermittent episodes of atrial f ibrillation with RVR, and his beta luisa dose was increased by cardiology. Remains on insulin drip, propofol drip, remains on antibiotics, remains on enteral feeding and on TPN. Will likely discontinue TPN once the enteral feeding is up to goal. Mental status owens remains poor, in the last few days I have been trying daily to hold sedation and assessment of status, however his mental status is extremely poor, and his CT of the brain was done by neurology, his basal ganglia showed asymmetry, and radiologist suggested possible MRI. However that will be decided upon by neurology on the case. Otherwise his CT of the brain is unremarkable. There is age-related cortical atrophy. Considering his chest x-ray showing evidence of slight interstitial edema, I have recommended a dose of Lasix 40 mg IV push to be given today. Patient remains hemodynamically stable in spite of his atrial fibrillation and RVR, and considering his cardiac findings I would recommend no plans to hold sedation today, place him back on propofol, and continue supportive care measures. Considering the overall picture, May have to seriously considered tracheostomy on this patient sometime next week. I doubt if we would be able to successfully wean the patient at this time. Reevaluated today on 03/28/2019, patient remains in the ICU, intubated, and mechanically ventilated. His ventilator settings are assist control rate of 16, volume is 500 FiO2 40% PEEP is 5. Patient is still experiencing intermittent episodes of atrial fibrillation and RVR, required placement on Cardizem drip, his beta luisa dose was increased, patient is also now requiring norepinephrine at 0.22 mcg/kg/m. Remains on propofol which I will increase to 50 mcg/kg/m. Patient remains tachypnea, tachycardic, in atrial fibrillation with RVR at times. Since Cardizem was started, the rate seems to be better controlled. But he is now hypotensive requiring norepinephrine. Chest x-ray is showing evidence of congestive heart failure and bilateral effusions with atelectasis. Pneumonia is not entirely ruled out but felt to be less likely at this point. Family is at bedside, and they were updated on his condition including his neurological condition which seems to be extremely poor and the patient does not respond to any painful stimuli. Updated on his cardiac condition, pulmonary condition, GI condition, and his renal issues. Clearly the patient has a multi organ system failure, and his prognosis is becoming poorer a nd poorer. Today I even touch bases with the family regarding tracheostomy if the patient doesn't improve in the next few days, or possibly consider comfort care measures. The family seems to be inclined to proceed with comfort care measures if we get to that point of addressing tracheostomy. In the meantime the CODE STATUS was changed to DO NOT RESUSCITATE CODE STATUS. WBC count is up to 30.9 hemoglobin is 8.6. ABG showed a pO2 of 68 pCO2 of 30 pH of 7.43. BUN is up to 72 creatinine is up to 2.41. Worsening leukocytosis was noted today, patient remains on Zosyn which I started yesterday. I will recommend the blood cultures to be done. And sputum cultures reevaluated. May even have to consider CT of the abdomen and pelvis for evaluation of possible abdominal abscess. However the patient is an extremely poor surgical candidate at this point. Reevaluated today on 03/29/2019, remains intubated, mechanically ventilated, ventilator settings are unchanged, he is now on tidal volume of 500 assist control rate of 16 FiO2 40% and PEEP of 5. Patient is now in sinus rhythm, he converted to sinus rhythm yesterday about 1 PM. Remains on multiple drips including propofol, levo fed at 0. one 4 mcg/kg/m, he is also on heparin drip, insulin drip, and remains on antibiotics/Zosyn and daptomycin was added as per infectious disease on the case. Patient is now on propofol which I plan to taper down and reassess mental status again, however his mental status has been extremely poor over the last 5 days. Chest x-ray is showing improvement in his pulmonary edema. Renal status is abnormal but remains basically about the same. WBC count is down to 24.9 hemoglobin is 8.3. ABG showed a pO2 of 102 pCO2 of 30 0 pH of 7.41. BUN is 69 creatinine 2.32. Patient remains on TPN and enteral feeding. Family is at bedside, and updated on his condition. EEG is suggestive of generalized cerebral dysfunction consistent with toxic metabolic encephalopathy. No seizure activity was seen Objective - Vital Signs Vital signs: Vital Signs Temp 98.3 F 03/29/19 04:00 Pulse 66 03/29/19 07:55 Resp 22 03/29/19 07:00 BP 121/56 03/29/19 07:00 Pulse Ox 98 03/29/19 07:00 Intake & Output 03/28/19 03/29/19 03/29/19 18:59 06:59 18:59 Intake Total 2173.754 1528.924 146.93 Output Total 3620 1805 400 Balance -1446.246 -276.076 -253.07 Weight 79.3 kg Intake: IV 665 340 20 .9 180 240 20 Diltiazem 125 mg In 35 Sodium Chloride 0.9% 100 ml @ 5 MG/HR 5 mls/hr IV .Q24H [facility] Rx#:[id number] Piperacillin-Tazobactam 3 200 100 .375 gm In Sodium Chloride 0.9% 100 ml @ 25 mls/hr IVPB Q8HR [facility] Rx# :[id number] Vancomycin 1,500 mg In 250 Sodium Chloride 0.9% 250 ml @ 125 mls/hr IVPB ONCE ONE Rx#:[id number] Intake, IV Titration 929.754 577.924 83.93 Amount Diltiazem 125 mg In 60.5 Sodium Chloride 0.9% 100 ml @ 5 MG/HR 5 mls/hr IV .Q24H [facility] Rx#:[id number] Heparin Sod,Pork in 0.45% 113.341 NaCl 25,000 unit In 0.45 % NaCl 1 250ml.bag @ 12 UNITS/KG/HR 8.712 mls/hr IV .Q24H [facility] Rx#: [id number] Insulin Regular 100 unit 55.197 45.542 12.12 In Sodium Chloride 0.9% 100 ml @ Per Protocol IV .Q0M [facility] Rx#:[id number] Norepinephrine 8 mg In 422.226 232.382 Sodium Chloride 0.9% 250 ml @ 0.05 MCG/KG/MIN 7.44 mls/hr IV .Q24H [facility] Rx#: [id number] Propofol 1,000 mg In 278.490 300 71.81 Empty Bag 1 bag @ Titrate IV .Q0M [facility] Rx#: [id number] Tube Feeding 519 521 43 Other 60 90 Output: Drainage 1800 Left upper quadrant 1800 ostomy Urine 1520 1255 100 Stool 300 550 300 Other: Voiding Method Indwelling Catheter Indwelling Catheter # Voids 1 ABP, PAP, CO, CI - Last Documented Arterial Blood Pressure 129/38 - Exam Physical Exam: Revealed a 73-year-old white male intubated on mechanical ventilation, on propofol again, unresponsive to painful stimuli. Head: Atraumatic, normocephalic. Endotracheal tube and orogastric tube are int act. HEENT:[Neck is supple.] [No neck masses.] [No thyromegaly.] [No JVD.] PERRLA, EOMI, no icterus. Chest: [Symmetrical chest expansion, crackles at the bases bilaterally. Some wheezing. Cardiac Exam: [Normal S1 and S2, no S3 gallop, no murmur.] Abdomen: [ reveals positive bowel sounds, jejunostomy site is viable and there is some liquidy material collecting in the back. . Extremities: [No clubbing, no edema, no cyanosis.] Neurological Exam: obtunded, not responding to any painful or verbal stimuli. Psychiatric: Cannot be obtained. Skin: No rashes. - Labs CBC & Chem 7: 03/29/19 05:40 03/29/19 05:40 Labs: Abnormal Lab Results - Last 24 Hours (Table) 03/28/19 03/28/19 03/28/19 Range/Units 10:57 12:02 13:03 WBC (3.8-10.6) k/uL RBC (4.30-5.90) m/uL Hgb (13.0-17.5) gm/dL Hct (39.0-53.0) % RDW (11.5-15.5) % Neutrophils # (1.3-7.7) k/uL Lymphocytes # (1.0-4.8) k/uL APTT (22.0-30.0) sec ABG pCO2 (35-45) mmHg ABG HCO3 (21-25) mmol/L ABG O2 Saturation (94-97) % Chloride (98-107) mmol/L Carbon Dioxide (22-30) mmol/L BUN (9-20) mg/dL Creatinine (0.66-1.25) mg/dL Glucose (74-99) mg/dL POC Glucose (mg/dL) 215 H 194 H 157 H (75-99) mg/dL Calcium (8.4-10.2) mg/dL Phosphorus (2.5-4.5) mg/dL 03/28/19 03/28/19 03/28/19 Range/Units 13:05 14:30 15:07 WBC (3.8-10.6) k/uL RBC (4.30-5.90) m/uL Hgb (13.0-17.5) gm/dL Hct (39.0-53.0) % RDW (11.5-15.5) % Neutrophils # (1.3-7.7) k/uL Lymphocytes # (1.0-4.8) k/uL APTT 69.4 H (22.0-30.0) sec ABG pCO2 (35-45) mmHg ABG HCO3 (21-25) mmol/L ABG O2 Saturation (94-97) % Chloride (98-107) mmol/L Carbon Dioxide (22-30) mmol/L BUN (9-20) mg/dL Creatinine (0.66-1.25) mg/dL Glucose (74-99) mg/dL POC Glucose (mg/dL) 129 H 139 H (75-99) mg/dL Calcium (8.4-10.2) mg/dL Phosphorus (2.5-4.5) mg/dL 03/28/19 03/28/19 03/28/19 Range/Units 15:48 16:43 18:09 WBC (3.8-10.6) k/uL RBC (4.30-5.90) m/uL Hgb (13.0-17.5) gm/dL Hct (39.0-53.0) % RDW (11.5-15.5) % Neutrophils # (1.3-7.7) k/uL Lymphocytes # (1.0-4.8) k/uL APTT (22.0-30.0) sec ABG pCO2 (35-45) mmHg ABG HCO3 (21-25) mmol/L ABG O2 Saturation (94-97) % Chloride (98-107) mmol/L Carbon Dioxide (22-30) mmol/L BUN (9-20) mg/dL Creatinine (0.66-1.25) mg/dL Glucose (74-99) mg/dL POC Glucose (mg/dL) 149 H 162 H 189 H (75-99) mg/dL Calcium (8.4-10.2) mg/dL Phosphorus (2.5-4.5) mg/dL 03/28/19 03/28/19 03/28/19 Range/Units 19:05 20:12 21:11 WBC (3.8-10.6) k/uL RBC (4.30-5.90) m/uL Hgb (13.0-17.5) gm/dL Hct (39.0-53.0) % RDW (11.5-15.5) % Neutrophils # (1.3-7.7) k/uL Lymphocytes # (1.0-4.8) k/uL APTT (22.0-30.0) sec ABG pCO2 (35-45) mmHg ABG HCO3 (21-25) mmol/L ABG O2 Saturation (94-97) % Chloride (98-107) mmol/L Carbon Dioxide (22-30) mmol/L BUN (9-20) mg/dL Creatinine (0.66-1.25) mg/dL Glucose (74-99) mg/dL POC Glucose (mg/dL) 140 H 121 H 108 H (75-99) mg/dL Calcium (8.4-10.2) mg/dL Phosphorus (2.5-4.5) mg/dL 03/28/19 03/28/19 03/28/19 Range/Units 22:03 23:05 23:59 WBC (3.8-10.6) k/uL RBC (4.30-5.90) m/uL Hgb (13.0-17.5) gm/dL Hct (39.0-53.0) % RDW (11.5-15.5) % Neutrophils # (1.3-7.7) k/uL Lymphocytes # (1.0-4.8) k/uL APTT (22.0-30.0) sec ABG pCO2 (35-45) mmHg ABG HCO3 (21-25) mmol/L ABG O2 Saturation (94-97) % Chloride (98-107) mmol/L Carbon Dioxide (22-30) mmol/L BUN (9-20) mg/dL Creatinine (0.66-1.25) mg/dL Glucose (74-99) mg/dL POC Glucose (mg/dL) 121 H 145 H 160 H (75-99) mg/dL Calcium (8.4-10.2) mg/dL Phosphorus (2.5-4.5) mg/dL 03/29/19 03/29/19 03/29/19 Range/Units 00:58 02:06 04:01 WBC (3.8-10.6) k/uL RBC (4.30-5.90) m/uL Hgb (13.0-17.5) gm/dL Hct (39.0-53.0) % RDW (11.5-15.5) % Neutrophils # (1.3-7.7) k/uL Lymphocytes # (1.0-4.8) k/uL APTT (22.0-30.0) sec ABG pCO2 (35-45) mmHg ABG HCO3 (21-25) mmol/L ABG O2 Saturation (94-97) % Chloride (98-107) mmol/L Carbon Dioxide (22-30) mmol/L BUN (9-20) mg/dL Creatinine (0.66-1.25) mg/dL Glucose (74-99) mg/dL POC Glucose (mg/dL) 158 H 144 H 151 H (75-99) mg/dL Calcium (8.4-10.2) mg/dL Phosphorus (2.5-4.5) mg/dL 03/29/19 03/29/19 03/29/19 Range/Units 05:05 05:40 05:40 WBC 24.9 H (3.8-10.6) k/uL RBC 3.00 L (4.30-5.90) m/uL Hgb 8.3 L (13.0-17.5) gm/dL Hct 25.9 L (39.0-53.0) % RDW 15.6 H (11.5-15.5) % Neutrophils # 22.9 H (1.3-7.7) k/uL Lymphocytes # 0.5 L (1.0-4.8) k/uL APTT (22.0-30.0) sec ABG pCO2 (35-45) mmHg ABG HCO3 (21-25) mmol/L ABG O2 Saturation (94-97) % Chloride 114 H (98-107) mmol/L Carbon Dioxide 20 L (22-30) mmol/L BUN 69 H (9-20) mg/dL Creatinine 2.32 H (0.66-1.25) mg/dL Glucose 143 H (74-99) mg/dL POC Glucose (mg/dL) 150 H (75-99) mg/dL Calcium 8.0 L (8.4-10.2) mg/dL Phosphorus 5.2 H (2.5-4.5) mg/dL 03/29/19 03/29/19 03/29/19 Range/Units 05:40 06:19 07:00 WBC (3.8-10.6) k/uL RBC (4.30-5.90) m/uL Hgb (13.0-17.5) gm/dL Hct (39.0-53.0) % RDW (11.5-15.5) % Neutrophils # (1.3-7.7) k/uL Lymphocytes # (1.0-4.8) k/uL APTT 66.7 H (22.0-30.0) sec ABG pCO2 (35-45) mmHg ABG HCO3 (21-25) mmol/L ABG O2 Saturation (94-97) % Chloride (98-107) mmol/L Carbon Dioxide (22-30) mmol/L BUN (9-20) mg/dL Creatinine (0.66-1.25) mg/dL Glucose (74-99) mg/dL POC Glucose (mg/dL) 138 H 148 H (75-99) mg/dL Calcium (8.4-10.2) mg/dL Phosphorus (2.5-4.5) mg/dL 03/29/19 03/29/19 03/29/19 Range/Units 07:42 09:59 10:51 WBC (3.8-10.6) k/uL RBC (4.30-5.90) m/uL Hgb (13.0-17.5) gm/dL Hct (39.0-53.0) % RDW (11.5-15.5) % Neutrophils # (1.3-7.7) k/uL Lymphocytes # (1.0-4.8) k/uL APTT (22.0-30.0) sec ABG pCO2 30 L (35-45) mmHg ABG HCO3 19 L (21-25) mmol/L ABG O2 Saturation 97.5 H (94-97) % Chloride (98-107) mmol/L Carbon Dioxide (22-30) mmol/L BUN (9-20) mg/dL Creatinine (0.66-1.25) mg/dL Glucose (74-99) mg/dL POC Glucose (mg/dL) 117 H 123 H (75-99) mg/dL Calcium (8.4-10.2) mg/dL Phosphorus (2.5-4.5) mg/dL Microbiology - Last 24 Hours (Table) 03/28/19 13:00 Gram Stain - Preliminary Sputum Sputum Culture - Preliminary Assessment and Plan Assessment: Impression: Severe multivessel coronary artery disease, post non-ST elevation myocardial infarction. No surgical plans at present Ischemic cardiomyopathy and LV dysfunction ejection fraction of 35%. Associated with intermittent episodes of pulmonary edema, improving with diuretics. Severe pulmonary hypertension Moderate severe mitral regurgitation Acute ischemic small bowel requiring exploratory laparotomy, and ileal/a jejunostomy resection and diverting jejunostomy. Type 2 diabetes, currently on insulin as per protocol. . Polycystic kidney disease. Chronic obstructive pulmonary disease and chronic smoking history. Chronic stage III kidney failure with acute on chronic kidney disease Benign essential hypertension. Severe pulmonary hypertension and moderate to severe mitral regurgitation postoperative hypoxic respiratory failure, multifactorial, secondary to ischemic cardiomyopathy, LV dysfunction, severe pulmonary hypertension, underlying COPD, and moderate to severe mitral regurgitation. This is not expected. Paroxysmal atrial fibrillation with RVR, being addressed by cardiology. His beta luisa dose was increased. Acute pulmonary edema secondary to systolic congestive heart failure. Severe metabolic encephalopathy with extremely poor mental status. EEG is suggestive of severe toxic metabolic encephalopathy. Recommendation: Continue ventilatory support,g Resume sedation as per protocol. Daily interruption of sedation and assessment of mental status. Hemodynamic support, continue norepinephrine. Continue diuretics. Continue empiric antibiotics. Continue Zosyn and daptomycin. Continue cardiac meds as per cardiology. Daily monitoring of electrolytes and renal profile. Continue daily chest x-rays. Continue GI and DVT prophylaxis. Family was updated on his condition again today, and over the next few days, willing to consider terminal weaning and comfort care measures if the patient doesn't show much improvement Critical care time is 35 minutes. Time with Patient: Greater than 30
--- NOTE | 2019-03-29 11:52 | P.PN ---
<Denisa Sharma - Last Filed: 03/29/19 11:48> Subjective Progress Note Date: 03/29/19 CHIEF COMPLAINT: abdominal pain HISTORY OF PRESENT ILLNESS: Patient is s/p s/p exploratory laparotomy, small bowel resection, and jejunostomy performed on 03/21/19. Patient examined at the bedside. He remains in the intensive care unit. He remains intubated and sedated. Tolerating tube feedings. Per nursing, attempts will be made to decrease sedation and evaluate neuro status. He is a DNR. Family does not wish to pursue trach and PEG. WBC decreased to 24.9 today. Hemoglobin 8.3. PHYSICAL EXAM: VITAL SIGNS: Reviewed GENERAL: Well-developed in no acute distress. HEENT: ET tube noted. NG tube intact. No sclera icterus. Extraocular movements grossly intact. Moist buccal mucosa. Head is atraumatic, normocephalic. NECK: Supple without lymphadenopathy. CHEST: Non-labored respirations and equal bilateral excursions-remains on mechanical ventilation. CARDIOVASCULAR: Regular rate with regular rhythm. Palpable 2+ radial pulses. ABDOMEN: Soft. Nondistended. Dressing clean dry and intact. Ostomy with stool noted. MUSCULOSKELETAL: No clubbing or cyanosis NEUROLOGIC: Sedated on mechanical ventilation PSYCH: Sedated on mechanical ventilation SKIN: Well perfused. Good skin turgor. ASSESSMENT: 1. Abdominal pain 2. Small bowel obstruction secondary to small bowel ischemia/necrosis with perforation, s/p exploratory laparotomy, small bowel resection, and jejunostomy. PLAN: Continue tube feedings as tolerated Continue antibiotics. Monitor WBC. Dr. Soliman following Continue ICU/ventilator management per Dr. Costello Nurse practitioner note has been reviewed by physician. Signing provider agrees with the documented findings, assessment, and plan of care. Objective - Vital Signs Vital signs: Vital Signs Temp 98.2 F 03/29/19 08:00 Pulse 89 03/29/19 11:00 Resp 24 03/29/19 11:00 BP 124/62 03/29/19 11:00 Pulse Ox 99 03/29/19 11:00 Intake & Output 03/28/19 03/29/19 03/29/19 18:59 06:59 18:59 Intake Total 2173.754 1528.924 346.93 Output Total 3620 1805 1250 Balance -1446.246 -276.076 -903.07 Weight 79.3 kg 79.3 kg Intake: IV 665 340 120 .9 180 240 20 Diltiazem 125 mg In 35 Sodium Chloride 0.9% 100 ml @ 5 MG/HR 5 mls/hr IV .Q24H [facility] Rx#:[id number] Piperacillin-Tazobactam 3 200 100 100 .375 gm In Sodium Chloride 0.9% 100 ml @ 25 mls/hr IVPB Q8HR [facility] Rx# :[id number] Vancomycin 1,500 mg In 250 Sodium Chloride 0.9% 250 ml @ 125 mls/hr IVPB ONCE ONE Rx#:[id number] Intake, IV Titration 929.754 577.924 183.93 Amount DAPTOmycin 500 mg In 100 Sodium Chloride 0.9% 50 ml @ 100 mls/hr IVPB Q48H [facility] Rx#:[id number] Diltiazem 125 mg In 60.5 Sodium Chloride 0.9% 100 ml @ 5 MG/HR 5 mls/hr IV .Q24H [facility] Rx#:[id number] Heparin Sod,Pork in 0.45% 113.341 NaCl 25,000 unit In 0.45 % NaCl 1 250ml.bag @ 12 UNITS/KG/HR 8.712 mls/hr IV .Q24H [facility] Rx#: [id number] Insulin Regular 100 unit 55.197 45.542 12.12 In Sodium Chloride 0.9% 100 ml @ Per Protocol IV .Q0M [facility] Rx#:[id number] Norepinephrine 8 mg In 422.226 232.382 Sodium Chloride 0.9% 250 ml @ 0.05 MCG/KG/MIN 7.44 mls/hr IV .Q24H [facility] Rx#: [id number] Propofol 1,000 mg In 278.490 300 71.81 Empty Bag 1 bag @ Titrate IV .Q0M [facility] Rx#: [id number] Tube Feeding 519 521 43 Other 60 90 Output: Drainage 1800 Left upper quadrant 1800 ostomy Urine 1520 1255 950 Stool 300 550 300 Other: Voiding Method Indwelling Catheter Indwelling Catheter # Voids 1 ABP, PAP, CO, CI - Last Documented Arterial Blood Pressure 135/45 - Labs CBC & Chem 7: 03/29/19 05:40 03/29/19 05:40 Labs: Abnormal Lab Results - Last 24 Hours (Table) 03/28/19 03/28/19 03/28/19 Range/Units 12:02 13:03 13:05 WBC (3.8-10.6) k/uL RBC (4.30-5.90) m/uL Hgb (13.0-17.5) gm/dL Hct (39.0-53.0) % RDW (11.5-15.5) % Neutrophils # (1.3-7.7) k/uL Lymphocytes # (1.0-4.8) k/uL APTT 69.4 H (22.0-30.0) sec ABG pCO2 (35-45) mmHg ABG HCO3 (21-25) mmol/L ABG O2 Saturation (94-97) % Chloride (98-107) mmol/L Carbon Dioxide (22-30) mmol/L BUN (9-20) mg/dL Creatinine (0.66-1.25) mg/dL Glucose (74-99) mg/dL POC Glucose (mg/dL) 194 H 157 H (75-99) mg/dL Calcium (8.4-10.2) mg/dL Phosphorus (2.5-4.5) mg/dL 03/28/19 03/28/19 03/28/19 Range/Units 14:30 15:07 15:48 WBC (3.8-10.6) k/uL RBC (4.30-5.90) m/uL Hgb (13.0-17.5) gm/dL Hct (39.0-53.0) % RDW (11.5-15.5) % Neutrophils # (1.3-7.7) k/uL Lymphocytes # (1.0-4.8) k/uL APTT (22.0-30.0) sec ABG pCO2 (35-45) mmHg ABG HCO3 (21-25) mmol/L ABG O2 Saturation (94-97) % Chloride (98-107) mmol/L Carbon Dioxide (22-30) mmol/L BUN (9-20) mg/dL Creatinine (0.66-1.25) mg/dL Glucose (74-99) mg/dL POC Glucose (mg/dL) 129 H 139 H 149 H (75-99) mg/dL Calcium (8.4-10.2) mg/dL Phosphorus (2.5-4.5) mg/dL 03/28/19 03/28/19 03/28/19 Range/Units 16:43 18:09 19:05 WBC (3.8-10.6) k/uL RBC (4.30-5.90) m/uL Hgb (13.0-17.5) gm/dL Hct (39.0-53.0) % RDW (11.5-15.5) % Neutrophils # (1.3-7.7) k/uL Lymphocytes # (1.0-4.8) k/uL APTT (22.0-30.0) sec ABG pCO2 (35-45) mmHg ABG HCO3 (21-25) mmol/L ABG O2 Saturation (94-97) % Chloride (98-107) mmol/L Carbon Dioxide (22-30) mmol/L BUN (9-20) mg/dL Creatinine (0.66-1.25) mg/dL Glucose (74-99) mg/dL POC Glucose (mg/dL) 162 H 189 H 140 H (75-99) mg/dL Calcium (8.4-10.2) mg/dL Phosphorus (2.5-4.5) mg/dL 03/28/19 03/28/19 03/28/19 Range/Units 20:12 21:11 22:03 WBC (3.8-10.6) k/uL RBC (4.30-5.90) m/uL Hgb (13.0-17.5) gm/dL Hct (39.0-53.0) % RDW (11.5-15.5) % Neutrophils # (1.3-7.7) k/uL Lymphocytes # (1.0-4.8) k/uL APTT (22.0-30.0) sec ABG pCO2 (35-45) mmHg ABG HCO3 (21-25) mmol/L ABG O2 Saturation (94-97) % Chloride (98-107) mmol/L Carbon Dioxide (22-30) mmol/L BUN (9-20) mg/dL Creatinine (0.66-1.25) mg/dL Glucose (74-99) mg/dL POC Glucose (mg/dL) 121 H 108 H 121 H (75-99) mg/dL Calcium (8.4-10.2) mg/dL Phosphorus (2.5-4.5) mg/dL 03/28/19 03/28/19 03/29/19 Range/Units 23:05 23:59 00:58 WBC (3.8-10.6) k/uL RBC (4.30-5.90) m/uL Hgb (13.0-17.5) gm/dL Hct (39.0-53.0) % RDW (11.5-15.5) % Neutrophils # (1.3-7.7) k/uL Lymphocytes # (1.0-4.8) k/uL APTT (22.0-30.0) sec ABG pCO2 (35-45) mmHg ABG HCO3 (21-25) mmol/L ABG O2 Saturation (94-97) % Chloride (98-107) mmol/L Carbon Dioxide (22-30) mmol/L BUN (9-20) mg/dL Creatinine (0.66-1.25) mg/dL Glucose (74-99) mg/dL POC Glucose (mg/dL) 145 H 160 H 158 H (75-99) mg/dL Calcium (8.4-10.2) mg/dL Phosphorus (2.5-4.5) mg/dL 03/29/19 03/29/19 03/29/19 Range/Units 02:06 04:01 05:05 WBC (3.8-10.6) k/uL RBC (4.30-5.90) m/uL Hgb (13.0-17.5) gm/dL Hct (39.0-53.0) % RDW (11.5-15.5) % Neutrophils # (1.3-7.7) k/uL Lymphocytes # (1.0-4.8) k/uL APTT (22.0-30.0) sec ABG pCO2 (35-45) mmHg ABG HCO3 (21-25) mmol/L ABG O2 Saturation (94-97) % Chloride (98-107) mmol/L Carbon Dioxide (22-30) mmol/L BUN (9-20) mg/dL Creatinine (0.66-1.25) mg/dL Glucose (74-99) mg/dL POC Glucose (mg/dL) 144 H 151 H 150 H (75-99) mg/dL Calcium (8.4-10.2) mg/dL Phosphorus (2.5-4.5) mg/dL 03/29/19 03/29/19 03/29/19 Range/Units 05:40 05:40 05:40 WBC 24.9 H (3.8-10.6) k/uL RBC 3.00 L (4.30-5.90) m/uL Hgb 8.3 L (13.0-17.5) gm/dL Hct 25.9 L (39.0-53.0) % RDW 15.6 H (11.5-15.5) % Neutrophils # 22.9 H (1.3-7.7) k/uL Lymphocytes # 0.5 L (1.0-4.8) k/uL APTT 66.7 H (22.0-30.0) sec ABG pCO2 (35-45) mmHg ABG HCO3 (21-25) mmol/L ABG O2 Saturation (94-97) % Chloride 114 H (98-107) mmol/L Carbon Dioxide 20 L (22-30) mmol/L BUN 69 H (9-20) mg/dL Creatinine 2.32 H (0.66-1.25) mg/dL Glucose 143 H (74-99) mg/dL POC Glucose (mg/dL) (75-99) mg/dL Calcium 8.0 L (8.4-10.2) mg/dL Phosphorus 5.2 H (2.5-4.5) mg/dL 03/29/19 03/29/19 03/29/19 Range/Units 06:19 07:00 07:42 WBC (3.8-10.6) k/uL RBC (4.30-5.90) m/uL Hgb (13.0-17.5) gm/dL Hct (39.0-53.0) % RDW (11.5-15.5) % Neutrophils # (1.3-7.7) k/uL Lymphocytes # (1.0-4.8) k/uL APTT (22.0-30.0) sec ABG pCO2 30 L (35-45) mmHg ABG HCO3 19 L (21-25) mmol/L ABG O2 Saturation 97.5 H (94-97) % Chloride (98-107) mmol/L Carbon Dioxide (22-30) mmol/L BUN (9-20) mg/dL Creatinine (0.66-1.25) mg/dL Glucose (74-99) mg/dL POC Glucose (mg/dL) 138 H 148 H (75-99) mg/dL Calcium (8.4-10.2) mg/dL Phosphorus (2.5-4.5) mg/dL 03/29/19 03/29/19 Range/Units 09:59 10:51 WBC (3.8-10.6) k/uL RBC (4.30-5.90) m/uL Hgb (13.0-17.5) gm/dL Hct (39.0-53.0) % RDW (11.5-15.5) % Neutrophils # (1.3-7.7) k/uL Lymphocytes # (1.0-4.8) k/uL APTT (22.0-30.0) sec ABG pCO2 (35-45) mmHg ABG HCO3 (21-25) mmol/L ABG O2 Saturation (94-97) % Chloride (98-107) mmol/L Carbon Dioxide (22-30) mmol/L BUN (9-20) mg/dL Creatinine (0.66-1.25) mg/dL Glucose (74-99) mg/dL POC Glucose (mg/dL) 117 H 123 H (75-99) mg/dL Calcium (8.4-10.2) mg/dL Phosphorus (2.5-4.5) mg/dL Microbiology - Last 24 Hours (Table) 03/28/19 13:00 Gram Stain - Preliminary Sputum Sputum Culture - Preliminary <Cynthia Raymundo - Last Filed: 03/30/19 11:12> Subjective As above, patient multiple medical comorbidities including guarded prognosis. Continue to monitor in the ICU. Objective - Vital Signs Vital signs: Vital Signs Temp 98.6 F 03/30/19 05:30 Pulse 108 H 03/30/19 08:20 Resp 32 H 03/30/19 07:00 BP 102/52 03/30/19 07:00 Pulse Ox 99 03/30/19 07:00 Intake & Output 03/29/19 03/30/19 03/30/19 18:59 06:59 18:59 Intake Total 5389.058 8518.553 168.862 Output Total 4050 2080 75 Balance -2839.397 -413.447 93.862 Weight 79.3 kg 80.2 kg Intake: IV 120 220 20 .9 20 220 20 Piperacillin-Tazobactam 3 100 .375 gm In Sodium Chloride 0.9% 100 ml @ 25 mls/hr IVPB Q8HR [facility] Rx# :[id number] Intake, IV Titration 611.603 694.553 106.862 Amount DAPTOmycin 500 mg In 100 Sodium Chloride 0.9% 50 ml @ 100 mls/hr IVPB Q48H [facility] Rx#:[id number] Diltiazem 125 mg In 0 Sodium Chloride 0.9% 100 ml @ 5 MG/HR 5 mls/hr IV .Q24H [facility] Rx#:[id number] Heparin Sod,Pork in 0.45% 250 206.91 NaCl 25,000 unit In 0.45 % NaCl 1 250ml.bag @ 12 UNITS/KG/HR 8.712 mls/hr IV .Q24H [facility] Rx#: [id number] Insulin Regular 100 unit 34.079 50.038 0 In Sodium Chloride 0.9% 100 ml @ Per Protocol IV .Q0M [facility] Rx#:[id number] Norepinephrine 8 mg In 119.392 288.256 29.958 Sodium Chloride 0.9% 250 ml @ 0.05 MCG/KG/MIN 7.44 mls/hr IV .Q24H [facility] Rx#: [id number] Propofol 1,000 mg In 108.132 149.349 76.904 Empty Bag 1 bag @ Titrate IV .Q0M [facility] Rx#: [id number] Tube Feeding 379 662 42 Other 100 90 Output: Gastric Drainage 600 Urine 2350 1080 75 Stool 1700 400 Other: Voiding Method Indwelling Catheter Indwelling Catheter # Voids 1 ABP, PAP, CO, CI - Last Documented Arterial Blood Pressure 107/42 - Labs CBC & Chem 7: 03/30/19 04:10 03/30/19 04:10 Labs: Abnormal Lab Results - Last 24 Hours (Table) 03/29/19 03/29/19 03/29/19 Range/Units 12:03 13:52 15:21 WBC (3.8-10.6) k/uL RBC (4.30-5.90) m/uL Hgb (13.0-17.5) gm/dL Hct (39.0-53.0) % Neutrophils # (1.3-7.7) k/uL Lymphocytes # (1.0-4.8) k/uL APTT (22.0-30.0) sec ABG pCO2 (35-45) mmHg ABG pO2 (83-108) mmHg ABG HCO3 (21-25) mmol/L ABG O2 Saturation (94-97) % Chloride (98-107) mmol/L Carbon Dioxide (22-30) mmol/L BUN (9-20) mg/dL Creatinine (0.66-1.25) mg/dL Glucose (74-99) mg/dL POC Glucose (mg/dL) 157 H 178 H 178 H (75-99) mg/dL Calcium (8.4-10.2) mg/dL 03/29/19 03/29/19 03/29/19 Range/Units 17:06 18:11 19:09 WBC (3.8-10.6) k/uL RBC (4.30-5.90) m/uL Hgb (13.0-17.5) gm/dL Hct (39.0-53.0) % Neutrophils # (1.3-7.7) k/uL Lymphocytes # (1.0-4.8) k/uL APTT (22.0-30.0) sec ABG pCO2 (35-45) mmHg ABG pO2 (83-108) mmHg ABG HCO3 (21-25) mmol/L ABG O2 Saturation (94-97) % Chloride (98-107) mmol/L Carbon Dioxide (22-30) mmol/L BUN (9-20) mg/dL Creatinine (0.66-1.25) mg/dL Glucose (74-99) mg/dL POC Glucose (mg/dL) 190 H 197 H 189 H (75-99) mg/dL Calcium (8.4-10.2) mg/dL 03/29/19 03/29/19 03/29/19 Range/Units 19:58 21:12 22:34 WBC (3.8-10.6) k/uL RBC (4.30-5.90) m/uL Hgb (13.0-17.5) gm/dL Hct (39.0-53.0) % Neutrophils # (1.3-7.7) k/uL Lymphocytes # (1.0-4.8) k/uL APTT (22.0-30.0) sec ABG pCO2 (35-45) mmHg ABG pO2 (83-108) mmHg ABG HCO3 (21-25) mmol/L ABG O2 Saturation (94-97) % Chloride (98-107) mmol/L Carbon Dioxide (22-30) mmol/L BUN (9-20) mg/dL Creatinine (0.66-1.25) mg/dL Glucose (74-99) mg/dL POC Glucose (mg/dL) 185 H 181 H 136 H (75-99) mg/dL Calcium (8.4-10.2) mg/dL 03/30/19 03/30/19 03/30/19 Range/Units 00:00 02:06 03:07 WBC (3.8-10.6) k/uL RBC (4.30-5.90) m/uL Hgb (13.0-17.5) gm/dL Hct (39.0-53.0) % Neutrophils # (1.3-7.7) k/uL Lymphocytes # (1.0-4.8) k/uL APTT (22.0-30.0) sec ABG pCO2 (35-45) mmHg ABG pO2 (83-108) mmHg ABG HCO3 (21-25) mmol/L ABG O2 Saturation (94-97) % Chloride (98-107) mmol/L Carbon Dioxide (22-30) mmol/L BUN (9-20) mg/dL Creatinine (0.66-1.25) mg/dL Glucose (74-99) mg/dL POC Glucose (mg/dL) 128 H 140 H 154 H (75-99) mg/dL Calcium (8.4-10.2) mg/dL 03/30/19 03/30/19 03/30/19 Range/Units 04:10 04:10 04:10 WBC 24.3 H (3.8-10.6) k/uL RBC 2.92 L (4.30-5.90) m/uL Hgb 8.0 L (13.0-17.5) gm/dL Hct 25.1 L (39.0-53.0) % Neutrophils # 22.8 H (1.3-7.7) k/uL Lymphocytes # 0.4 L (1.0-4.8) k/uL APTT 59.8 H (22.0-30.0) sec ABG pCO2 (35-45) mmHg ABG pO2 (83-108) mmHg ABG HCO3 (21-25) mmol/L ABG O2 Saturation (94-97) % Chloride 117 H (98-107) mmol/L Carbon Dioxide 17 L (22-30) mmol/L BUN 64 H (9-20) mg/dL Creatinine 2.05 H (0.66-1.25) mg/dL Glucose 181 H (74-99) mg/dL POC Glucose (mg/dL) (75-99) mg/dL Calcium 7.6 L (8.4-10.2) mg/dL 03/30/19 03/30/19 03/30/19 Range/Units 04:10 05:18 06:57 WBC (3.8-10.6) k/uL RBC (4.30-5.90) m/uL Hgb (13.0-17.5) gm/dL Hct (39.0-53.0) % Neutrophils # (1.3-7.7) k/uL Lymphocytes # (1.0-4.8) k/uL APTT (22.0-30.0) sec ABG pCO2 (35-45) mmHg ABG pO2 (83-108) mmHg ABG HCO3 (21-25) mmol/L ABG O2 Saturation (94-97) % Chloride (98-107) mmol/L Carbon Dioxide (22-30) mmol/L BUN (9-20) mg/dL Creatinine (0.66-1.25) mg/dL Glucose (74-99) mg/dL POC Glucose (mg/dL) 187 H 168 H 136 H (75-99) mg/dL Calcium (8.4-10.2) mg/dL 03/30/19 03/30/19 03/30/19 Range/Units 07:39 08:33 08:56 WBC (3.8-10.6) k/uL RBC (4.30-5.90) m/uL Hgb (13.0-17.5) gm/dL Hct (39.0-53.0) % Neutrophils # (1.3-7.7) k/uL Lymphocytes # (1.0-4.8) k/uL APTT (22.0-30.0) sec ABG pCO2 28 L (35-45) mmHg ABG pO2 116 H (83-108) mmHg ABG HCO3 18 L (21-25) mmol/L ABG O2 Saturation 98.1 H (94-97) % Chloride (98-107) mmol/L Carbon Dioxide (22-30) mmol/L BUN (9-20) mg/dL Creatinine (0.66-1.25) mg/dL Glucose (74-99) mg/dL POC Glucose (mg/dL) 127 H 138 H (75-99) mg/dL Calcium (8.4-10.2) mg/dL 03/30/19 03/30/19 Range/Units 09:54 11:01 WBC (3.8-10.6) k/uL RBC (4.30-5.90) m/uL Hgb (13.0-17.5) gm/dL Hct (39.0-53.0) % Neutrophils # (1.3-7.7) k/uL Lymphocytes # (1.0-4.8) k/uL APTT (22.0-30.0) sec ABG pCO2 (35-45) mmHg ABG pO2 (83-108) mmHg ABG HCO3 (21-25) mmol/L ABG O2 Saturation (94-97) % Chloride (98-107) mmol/L Carbon Dioxide (22-30) mmol/L BUN (9-20) mg/dL Creatinine (0.66-1.25) mg/dL Glucose (74-99) mg/dL POC Glucose (mg/dL) 165 H 173 H (75-99) mg/dL Calcium (8.4-10.2) mg/dL Microbiology - Last 24 Hours (Table) 03/28/19 13:00 Gram Stain - Final Sputum Sputum Culture - Final Mayelin albicans Klebsiella oxytoca 03/28/19 13:05 Blood Culture - Preliminary Blood No Growth after 24 hours
[2019-03-29] MEDS ORDERED: VANCOMYCIN 1,500 MG in SODIUM CHLORIDE 0.9% 250 ML IVPB ONE (12:00)
[2019-03-29 12:07] LABS: Glucose,Whole Blood 157 mg/dL (75-99)
[2019-03-29] MEDS: NOREPINEPHRINE 8 MG in SODIUM CHLORIDE 0.9% 250 ML IV SCH (12:20)
[2019-03-29] MEDS: HEPARIN SOD,PORK IN 0.45% NACL 25,000 UNIT in 0.45% NACL 1 250ML.BAG IV SCH (12:21)
[2019-03-29] MEDS: DILTIAZEM 125 MG in SODIUM CHLORIDE 0.9% 100 ML IV SCH (12:22)
--- NOTE | 2019-03-29 12:22 | P.PN ---
Subjective Progress Note Date: 03/29/19 Patient continues to be comatose, patient is off sedation for the last half an hour. Prior he was on 10 g of propofol for last couple hours. Patient has developed fever, also is on Levophed. He does breathe over the ventilator. Objective - Vital Signs Vital signs: Vital Signs Temp 98.2 F 03/29/19 08:00 Pulse 112 H 03/29/19 12:05 Resp 24 03/29/19 11:00 BP 124/62 03/29/19 11:00 Pulse Ox 99 03/29/19 11:00 Intake & Output 03/28/19 03/29/19 03/29/19 18:59 06:59 18:59 Intake Total 2173.754 1528.924 346.93 Output Total 3620 1805 1250 Balance -1446.246 -276.076 -903.07 Weight 79.3 kg 79.3 kg Intake: IV 665 340 120 .9 180 240 20 Diltiazem 125 mg In 35 Sodium Chloride 0.9% 100 ml @ 5 MG/HR 5 mls/hr IV .Q24H [facility] Rx#:[id number] Piperacillin-Tazobactam 3 200 100 100 .375 gm In Sodium Chloride 0.9% 100 ml @ 25 mls/hr IVPB Q8HR [facility] Rx# :[id number] Vancomycin 1,500 mg In 250 Sodium Chloride 0.9% 250 ml @ 125 mls/hr IVPB ONCE ONE Rx#:[id number] Intake, IV Titration 929.754 577.924 183.93 Amount DAPTOmycin 500 mg In 100 Sodium Chloride 0.9% 50 ml @ 100 mls/hr IVPB Q48H [facility] Rx#:[id number] Diltiazem 125 mg In 60.5 Sodium Chloride 0.9% 100 ml @ 5 MG/HR 5 mls/hr IV .Q24H [facility] Rx#:[id number] Heparin Sod,Pork in 0.45% 113.341 NaCl 25,000 unit In 0.45 % NaCl 1 250ml.bag @ 12 UNITS/KG/HR 8.712 mls/hr IV .Q24H [facility] Rx#: [id number] Insulin Regular 100 unit 55.197 45.542 12.12 In Sodium Chloride 0.9% 100 ml @ Per Protocol IV .Q0M [facility] Rx#:[id number] Norepinephrine 8 mg In 422.226 232.382 Sodium Chloride 0.9% 250 ml @ 0.05 MCG/KG/MIN 7.44 mls/hr IV .Q24H [facility] Rx#: [id number] Propofol 1,000 mg In 278.490 300 71.81 Empty Bag 1 bag @ Titrate IV .Q0M [facility] Rx#: [id number] Tube Feeding 519 521 43 Other 60 90 Output: Drainage 1800 Left upper quadrant 1800 ostomy Urine 1520 1255 950 Stool 300 550 300 Other: Voiding Method Indwelling Catheter Indwelling Catheter # Voids 1 ABP, PAP, CO, CI - Last Documented Arterial Blood Pressure 135/45 - Exam Patient is intubated, not on sedation. Patient does not respond to calling his name. He does not respond to noxious stimuli. Patient appears to be comatose. Pupils are not clearly reacting. Oculocephalics absent. Corneal reflex present. No seizure activity noted. - Labs CBC & Chem 7: 03/29/19 05:40 03/29/19 05:40 Labs: Abnormal Lab Results - Last 24 Hours (Table) 03/28/19 03/28/19 03/28/19 Range/Units 13:03 13:05 14:30 WBC (3.8-10.6) k/uL RBC (4.30-5.90) m/uL Hgb (13.0-17.5) gm/dL Hct (39.0-53.0) % RDW (11.5-15.5) % Neutrophils # (1.3-7.7) k/uL Lymphocytes # (1.0-4.8) k/uL APTT 69.4 H (22.0-30.0) sec ABG pCO2 (35-45) mmHg ABG HCO3 (21-25) mmol/L ABG O2 Saturation (94-97) % Chloride (98-107) mmol/L Carbon Dioxide (22-30) mmol/L BUN (9-20) mg/dL Creatinine (0.66-1.25) mg/dL Glucose (74-99) mg/dL POC Glucose (mg/dL) 157 H 129 H (75-99) mg/dL Calcium (8.4-10.2) mg/dL Phosphorus (2.5-4.5) mg/dL 12/26/19 12/26/19 12/26/19 Range/Units 15:07 15:48 16:43 WBC (3.8-10.6) k/uL RBC (4.30-5.90) m/uL Hgb (13.0-17.5) gm/dL Hct (39.0-53.0) % RDW (11.5-15.5) % Neutrophils # (1.3-7.7) k/uL Lymphocytes # (1.0-4.8) k/uL APTT (22.0-30.0) sec ABG pCO2 (35-45) mmHg ABG HCO3 (21-25) mmol/L ABG O2 Saturation (94-97) % Chloride (98-107) mmol/L Carbon Dioxide (22-30) mmol/L BUN (9-20) mg/dL Creatinine (0.66-1.25) mg/dL Glucose (74-99) mg/dL POC Glucose (mg/dL) 139 H 149 H 162 H (75-99) mg/dL Calcium (8.4-10.2) mg/dL Phosphorus (2.5-4.5) mg/dL 03/28/19 03/28/19 03/28/19 Range/Units 18:09 19:05 20:12 WBC (3.8-10.6) k/uL RBC (4.30-5.90) m/uL Hgb (13.0-17.5) gm/dL Hct (39.0-53.0) % RDW (11.5-15.5) % Neutrophils # (1.3-7.7) k/uL Lymphocytes # (1.0-4.8) k/uL APTT (22.0-30.0) sec ABG pCO2 (35-45) mmHg ABG HCO3 (21-25) mmol/L ABG O2 Saturation (94-97) % Chloride (98-107) mmol/L Carbon Dioxide (22-30) mmol/L BUN (9-20) mg/dL Creatinine (0.66-1.25) mg/dL Glucose (74-99) mg/dL POC Glucose (mg/dL) 189 H 140 H 121 H (75-99) mg/dL Calcium (8.4-10.2) mg/dL Phosphorus (2.5-4.5) mg/dL 03/28/19 03/28/19 03/28/19 Range/Units 21:11 22:03 23:05 WBC (3.8-10.6) k/uL RBC (4.30-5.90) m/uL Hgb (13.0-17.5) gm/dL Hct (39.0-53.0) % RDW (11.5-15.5) % Neutrophils # (1.3-7.7) k/uL Lymphocytes # (1.0-4.8) k/uL APTT (22.0-30.0) sec ABG pCO2 (35-45) mmHg ABG HCO3 (21-25) mmol/L ABG O2 Saturation (94-97) % Chloride (98-107) mmol/L Carbon Dioxide (22-30) mmol/L BUN (9-20) mg/dL Creatinine (0.66-1.25) mg/dL Glucose (74-99) mg/dL POC Glucose (mg/dL) 108 H 121 H 145 H (75-99) mg/dL Calcium (8.4-10.2) mg/dL Phosphorus (2.5-4.5) mg/dL 03/28/19 03/29/19 03/29/19 Range/Units 23:59 00:58 02:06 WBC (3.8-10.6) k/uL RBC (4.30-5.90) m/uL Hgb (13.0-17.5) gm/dL Hct (39.0-53.0) % RDW (11.5-15.5) % Neutrophils # (1.3-7.7) k/uL Lymphocytes # (1.0-4.8) k/uL APTT (22.0-30.0) sec ABG pCO2 (35-45) mmHg ABG HCO3 (21-25) mmol/L ABG O2 Saturation (94-97) % Chloride (98-107) mmol/L Carbon Dioxide (22-30) mmol/L BUN (9-20) mg/dL Creatinine (0.66-1.25) mg/dL Glucose (74-99) mg/dL POC Glucose (mg/dL) 160 H 158 H 144 H (75-99) mg/dL Calcium (8.4-10.2) mg/dL Phosphorus (2.5-4.5) mg/dL 03/29/19 03/29/19 03/29/19 Range/Units 04:01 05:05 05:40 WBC (3.8-10.6) k/uL RBC (4.30-5.90) m/uL Hgb (13.0-17.5) gm/dL Hct (39.0-53.0) % RDW (11.5-15.5) % Neutrophils # (1.3-7.7) k/uL Lymphocytes # (1.0-4.8) k/uL APTT (22.0-30.0) sec ABG pCO2 (35-45) mmHg ABG HCO3 (21-25) mmol/L ABG O2 Saturation (94-97) % Chloride 114 H (98-107) mmol/L Carbon Dioxide 20 L (22-30) mmol/L BUN 69 H (9-20) mg/dL Creatinine 2.32 H (0.66-1.25) mg/dL Glucose 143 H (74-99) mg/dL POC Glucose (mg/dL) 151 H 150 H (75-99) mg/dL Calcium 8.0 L (8.4-10.2) mg/dL Phosphorus 5.2 H (2.5-4.5) mg/dL 03/29/19 03/29/19 03/29/19 Range/Units 05:40 05:40 06:19 WBC 24.9 H (3.8-10.6) k/uL RBC 3.00 L (4.30-5.90) m/uL Hgb 8.3 L (13.0-17.5) gm/dL Hct 25.9 L (39.0-53.0) % RDW 15.6 H (11.5-15.5) % Neutrophils # 22.9 H (1.3-7.7) k/uL Lymphocytes # 0.5 L (1.0-4.8) k/uL APTT 66.7 H (22.0-30.0) sec ABG pCO2 (35-45) mmHg ABG HCO3 (21-25) mmol/L ABG O2 Saturation (94-97) % Chloride (98-107) mmol/L Carbon Dioxide (22-30) mmol/L BUN (9-20) mg/dL Creatinine (0.66-1.25) mg/dL Glucose (74-99) mg/dL POC Glucose (mg/dL) 138 H (75-99) mg/dL Calcium (8.4-10.2) mg/dL Phosphorus (2.5-4.5) mg/dL 03/29/19 03/29/19 03/29/19 Range/Units 07:00 07:42 09:59 WBC (3.8-10.6) k/uL RBC (4.30-5.90) m/uL Hgb (13.0-17.5) gm/dL Hct (39.0-53.0) % RDW (11.5-15.5) % Neutrophils # (1.3-7.7) k/uL Lymphocytes # (1.0-4.8) k/uL APTT (22.0-30.0) sec ABG pCO2 30 L (35-45) mmHg ABG HCO3 19 L (21-25) mmol/L ABG O2 Saturation 97.5 H (94-97) % Chloride (98-107) mmol/L Carbon Dioxide (22-30) mmol/L BUN (9-20) mg/dL Creatinine (0.66-1.25) mg/dL Glucose (74-99) mg/dL POC Glucose (mg/dL) 148 H 117 H (75-99) mg/dL Calcium (8.4-10.2) mg/dL Phosphorus (2.5-4.5) mg/dL 03/29/19 03/29/19 Range/Units 10:51 12:03 WBC (3.8-10.6) k/uL RBC (4.30-5.90) m/uL Hgb (13.0-17.5) gm/dL Hct (39.0-53.0) % RDW (11.5-15.5) % Neutrophils # (1.3-7.7) k/uL Lymphocytes # (1.0-4.8) k/uL APTT (22.0-30.0) sec ABG pCO2 (35-45) mmHg ABG HCO3 (21-25) mmol/L ABG O2 Saturation (94-97) % Chloride (98-107) mmol/L Carbon Dioxide (22-30) mmol/L BUN (9-20) mg/dL Creatinine (0.66-1.25) mg/dL Glucose (74-99) mg/dL POC Glucose (mg/dL) 123 H 157 H (75-99) mg/dL Calcium (8.4-10.2) mg/dL Phosphorus (2.5-4.5) mg/dL Microbiology - Last 24 Hours (Table) 03/28/19 13:00 Gram Stain - Preliminary Sputum Sputum Culture - Preliminary Mayelin albicans Gram Neg Bacilli Assessment and Plan Assessment: * Altered mental status, likely related to toxic metabolic encephalopathy, severe degree. * Status post acute NE * Status post laparotomy for ischemic bowel on 02/19/2019. * Ventilator-dependent respiratory failure on mechanical ventilation * Atrial fibrillation, on anticoagulation with IV heparin. 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 * COPD * Atherosclerotic cerebrovascular disease * Acute renal failure, with polycystic kidney disease * Anemia Plan: * Patient apparently seems to have severe toxic metabolic encephalopathy. * EEG showed severe background slowing, consistent with toxic metabolic encephalopathy. No epileptiform activity was seen. * Prognosis mainly depends upon underlying other medical and surgical conditions. * Computed tomography scan of head was reviewed, which revealed small vessel d isease with no acute process. * Your medical management. * Discussed with patient's son, who was present today. * Family is considering terminal weaning and comfort care by 04/01/2019.
[2019-03-29 13:59] LABS: Glucose,Whole Blood 178 mg/dL (75-99)
[2019-03-29 15:22] LABS: Glucose,Whole Blood 178 mg/dL (75-99)
--- NOTE | 2019-03-29 17:00 | P.PN ---
Subjective Patient is status post laparotomy for a small wall ischemia consider necrosis. The patient the surgical risk is very high as it wasn't emergent surgery patient underwent surgery and patient is presently intubated patient in shock broad- spectrum antibiotics patient on propofol and norepinephrine. Patient was having a low-grade temperatures and patient is presently receiving TPN for nutritional support. Patient has colostomy as well patient has a major three-vessel disease and patient was in A. fib patient of the proximal A. fib presently on amiodarone wasn't is sinus rhythm was sinus tachycardia. Does have history of chronic kidney disease stage III from polycystic kidney 03/23/2019 No significant change in clinical condition patient remains on norepinephrine remains intubated. Patient urine output is good patient remains on normal saline at 100 mL per hour. 03/24/2019 Patient is bit more awake today weaning of sedation although patient did undergo spontaneous breathing trial yet today. Patient is still on norepinephrine, IV h eparin, IV normal saline which is cut down to 20 mL now patient actually received Lasix with the good urine output. 03/25/2019 Patient is norepinephrine is being weaned off, patient is presently receiving IV Lasix patient has small left pleural effusion creatinine although improved to 1.86 sedation is being discontinued and patient will undergo weaning trial. 03/26/2019 patient's propofol was discontinued in spite of which the patient is not responding as expected by the machine shorthand reporter because of which patient underwent CAT scan of the head. CAT scan didn't show any intracranial bleed but sed rate cannot rule out subacute ischemia and recommended an MRI and neurology was subsequently consulted. Patient is still on norepinephrine, heparin drip and insulin drip. Not sure patient will need to continue the antibiotics will discuss with infectious disease 03/27/2019 Patient remains mechanically intubated patient is not responding well in spite of aggressive therapy considering his age and overall medical problems probably hospice and comfort care is more appropriate choice. Neurology is evaluating the patient. EEG is being will be obtained patient remains on propofol occasionally breathing over the ventilator patient does have cough reflex gag reflex. 03/28/2019 Patient has worsening leukocytosis because of which abdominal CAT scan is being obtained to rule out any intra-abdominal abscess. Patient is not doing well overall patient does have pulmonary edema started having fevers again patient remains on broad-spectrum antibiotics. As patient's sputum cultures are positive for Mayelin albicans. Patient remains on Zosyn. Repeat blood cultures will be obtained infectious disease will be consulted patient will be started on vancomycin. remains intubated patient is presently on Cardizem drip. Patient is also on amiodarone 03/29/2019 Patient remains on all the above-mentioned drips as yesterday. No significant improvement in his clinical condition except for some improvement in his serum creatinine. In spite of aggressive therapy and aggressive treatment patient did not recover well the chance of his reasonable recovery is very low. Even he recovers patient will not be a candidate for coronary artery bypass grafting without which patient's quality of life will be poor and frequent anginal episodes. Because of these reasons I believe patient is more appropriate for hospice. Review of systems: Unable to obtain due to his clinical condition All inpatient medications were reviewed and appropriate changes in these medications as dictated in the interval history and assessment and plan. Objective - Vital Signs Vital signs: Vital Signs Temp 98.0 F 03/29/19 12:00 Pulse 108 H 03/29/19 15:57 Resp 24 03/29/19 16:00 BP 105/78 03/29/19 15:00 Pulse Ox 99 03/29/19 15:00 Intake & Output 03/28/19 03/29/19 03/29/19 18:59 06:59 18:59 Intake Total 2173.754 2200.816 6566.300 Output Total 3620 1805 3750 Balance -1446.246 -276.076 -2598.700 Weight 79.3 kg 79.3 kg Intake: IV 665 340 120 .9 180 240 20 Diltiazem 125 mg In 35 Sodium Chloride 0.9% 100 ml @ 5 MG/HR 5 mls/hr IV .Q24H [facility] Rx#:[id number] Piperacillin-Tazobactam 3 200 100 100 .375 gm In Sodium Chloride 0.9% 100 ml @ 25 mls/hr IVPB Q8HR [facility] Rx# :[id number] Vancomycin 1,500 mg In 250 Sodium Chloride 0.9% 250 ml @ 125 mls/hr IVPB ONCE ONE Rx#:[id number] Intake, IV Titration 929.754 577.924 595.300 Amount DAPTOmycin 500 mg In 100 Sodium Chloride 0.9% 50 ml @ 100 mls/hr IVPB Q48H [facility] Rx#:[id number] Diltiazem 125 mg In 60.5 Sodium Chloride 0.9% 100 ml @ 5 MG/HR 5 mls/hr IV .Q24H [facility] Rx#:[id number] Heparin Sod,Pork in 0.45% 113.341 250 NaCl 25,000 unit In 0.45 % NaCl 1 250ml.bag @ 12 UNITS/KG/HR 8.712 mls/hr IV .Q24H [facility] Rx#: [id number] Insulin Regular 100 unit 55.197 45.542 17.776 In Sodium Chloride 0.9% 100 ml @ Per Protocol IV .Q0M [facility] Rx#:[id number] Norepinephrine 8 mg In 422.226 232.382 119.392 Sodium Chloride 0.9% 250 ml @ 0.05 MCG/KG/MIN 7.44 mls/hr IV .Q24H [facility] Rx#: [id number] Propofol 1,000 mg In 278.490 300 108.132 Empty Bag 1 bag @ Titrate IV .Q0M [facility] Rx#: [id number] Tube Feeding 519 521 336 Other 60 90 100 Output: Drainage 1800 Left upper quadrant 1800 ostomy Urine 1520 1255 2050 Stool 021 620 8194 Other: Voiding Method Indwelling Catheter Indwelling Catheter Indwelling Catheter # Voids 1 1 ABP, PAP, CO, CI - Last Documented Arterial Blood Pressure 110/38 - Exam PHYSICAL EXAMINATION: GENERAL: Intubated sedated, fully catheter in place HEENT: Pupils are round and equally reacting to light. EOMI. No scleral icterus. No conjunctival pallor. Normocephalic, atraumatic. No pharyngeal erythema. No thyromegaly. CARDIOVASCULAR: S1 and S2 present. No murmurs, rubs, or gallops. Tachycardic PULMONARY: Bilateral expiratory wheezing was appreciated ABDOMEN: Bowel sounds are absent jejunostomy tube in patient is also on total parenteral nutrition MUSCULOSKELETAL: No joint swelling or deformity. EXTREMITIES: No cyanosis, clubbing, or pedal edema. NEUROLOGICAL: Gross neurological examination did not reveal any focal deficits. SKIN: No rashes. - Labs CBC & Chem 7: 03/29/19 05:40 03/29/19 05:40 Labs: Abnormal Lab Results - Last 24 Hours (Table) 03/28/19 03/28/19 03/28/19 Range/Units 18:09 19:05 20:12 WBC (3.8-10.6) k/uL RBC (4.30-5.90) m/uL Hgb (13.0-17.5) gm/dL Hct (39.0-53.0) % RDW (11.5-15.5) % Neutrophils # (1.3-7.7) k/uL Lymphocytes # (1.0-4.8) k/uL APTT (22.0-30.0) sec ABG pCO2 (35-45) mmHg ABG HCO3 (21-25) mmol/L ABG O2 Saturation (94-97) % Chloride (98-107) mmol/L Carbon Dioxide (22-30) mmol/L BUN (9-20) mg/dL Creatinine (0.66-1.25) mg/dL Glucose (74-99) mg/dL POC Glucose (mg/dL) 189 H 140 H 121 H (75-99) mg/dL Calcium (8.4-10.2) mg/dL Phosphorus (2.5-4.5) mg/dL 03/28/19 03/28/19 03/28/19 Range/Units 21:11 22:03 23:05 WBC (3.8-10.6) k/uL RBC (4.30-5.90) m/uL Hgb (13.0-17.5) gm/dL Hct (39.0-53.0) % RDW (11.5-15.5) % Neutrophils # (1.3-7.7) k/uL Lymphocytes # (1.0-4.8) k/uL APTT (22.0-30.0) sec ABG pCO2 (35-45) mmHg ABG HCO3 (21-25) mmol/L ABG O2 Saturation (94-97) % Chloride (98-107) mmol/L Carbon Dioxide (22-30) mmol/L BUN (9-20) mg/dL Creatinine (0.66-1.25) mg/dL Glucose (74-99) mg/dL POC Glucose (mg/dL) 108 H 121 H 145 H (75-99) mg/dL Calcium (8.4-10.2) mg/dL Phosphorus (2.5-4.5) mg/dL 03/28/19 03/29/19 03/29/19 Range/Units 23:59 00:58 02:06 WBC (3.8-10.6) k/uL RBC (4.30-5.90) m/uL Hgb (13.0-17.5) gm/dL Hct (39.0-53.0) % RDW (11.5-15.5) % Neutrophils # (1.3-7.7) k/uL Lymphocytes # (1.0-4.8) k/uL APTT (22.0-30.0) sec ABG pCO2 (35-45) mmHg ABG HCO3 (21-25) mmol/L ABG O2 Saturation (94-97) % Chloride (98-107) mmol/L Carbon Dioxide (22-30) mmol/L BUN (9-20) mg/dL Creatinine (0.66-1.25) mg/dL Glucose (74-99) mg/dL POC Glucose (mg/dL) 160 H 158 H 144 H (75-99) mg/dL Calcium (8.4-10.2) mg/dL Phosphorus (2.5-4.5) mg/dL 03/29/19 03/29/19 03/29/19 Range/Units 04:01 05:05 05:40 WBC (3.8-10.6) k/uL RBC (4.30-5.90) m/uL Hgb (13.0-17.5) gm/dL Hct (39.0-53.0) % RDW (11.5-15.5) % Neutrophils # (1.3-7.7) k/uL Lymphocytes # (1.0-4.8) k/uL APTT (22.0-30.0) sec ABG pCO2 (35-45) mmHg ABG HCO3 (21-25) mmol/L ABG O2 Saturation (94-97) % Chloride 114 H (98-107) mmol/L Carbon Dioxide 20 L (22-30) mmol/L BUN 69 H (9-20) mg/dL Creatinine 2.32 H (0.66-1.25) mg/dL Glucose 143 H (74-99) mg/dL POC Glucose (mg/dL) 151 H 150 H (75-99) mg/dL Calcium 8.0 L (8.4-10.2) mg/dL Phosphorus 5.2 H (2.5-4.5) mg/dL 03/29/19 03/29/19 03/29/19 Range/Units 05:40 05:40 06:19 WBC 24.9 H (3.8-10.6) k/uL RBC 3.00 L (4.30-5.90) m/uL Hgb 8.3 L (13.0-17.5) gm/dL Hct 25.9 L (39.0-53.0) % RDW 15.6 H (11.5-15.5) % Neutrophils # 22.9 H (1.3-7.7) k/uL Lymphocytes # 0.5 L (1.0-4.8) k/uL APTT 66.7 H (22.0-30.0) sec ABG pCO2 (35-45) mmHg ABG HCO3 (21-25) mmol/L ABG O2 Saturation (94-97) % Chloride (98-107) mmol/L Carbon Dioxide (22-30) mmol/L BUN (9-20) mg/dL Creatinine (0.66-1.25) mg/dL Glucose (74-99) mg/dL POC Glucose (mg/dL) 138 H (75-99) mg/dL Calcium (8.4-10.2) mg/dL Phosphorus (2.5-4.5) mg/dL 03/29/19 03/29/19 03/29/19 Range/Units 07:00 07:42 09:59 WBC (3.8-10.6) k/uL RBC (4.30-5.90) m/uL Hgb (13.0-17.5) gm/dL Hct (39.0-53.0) % RDW (11.5-15.5) % Neutrophils # (1.3-7.7) k/uL Lymphocytes # (1.0-4.8) k/uL APTT (22.0-30.0) sec ABG pCO2 30 L (35-45) mmHg ABG HCO3 19 L (21-25) mmol/L ABG O2 Saturation 97.5 H (94-97) % Chloride (98-107) mmol/L Carbon Dioxide (22-30) mmol/L BUN (9-20) mg/dL Creatinine (0.66-1.25) mg/dL Glucose (74-99) mg/dL POC Glucose (mg/dL) 148 H 117 H (75-99) mg/dL Calcium (8.4-10.2) mg/dL Phosphorus (2.5-4.5) mg/dL 03/29/19 03/29/19 03/29/19 Range/Units 10:51 12:03 13:52 WBC (3.8-10.6) k/uL RBC (4.30-5.90) m/uL Hgb (13.0-17.5) gm/dL Hct (39.0-53.0) % RDW (11.5-15.5) % Neutrophils # (1.3-7.7) k/uL Lymphocytes # (1.0-4.8) k/uL APTT (22.0-30.0) sec ABG pCO2 (35-45) mmHg ABG HCO3 (21-25) mmol/L ABG O2 Saturation (94-97) % Chloride (98-107) mmol/L Carbon Dioxide (22-30) mmol/L BUN (9-20) mg/dL Creatinine (0.66-1.25) mg/dL Glucose (74-99) mg/dL POC Glucose (mg/dL) 123 H 157 H 178 H (75-99) mg/dL Calcium (8.4-10.2) mg/dL Phosphorus (2.5-4.5) mg/dL 03/29/19 Range/Units 15:21 WBC (3.8-10.6) k/uL RBC (4.30-5.90) m/uL Hgb (13.0-17.5) gm/dL Hct (39.0-53.0) % RDW (11.5-15.5) % Neutrophils # (1.3-7.7) k/uL Lymphocytes # (1.0-4.8) k/uL APTT (22.0-30.0) sec ABG pCO2 (35-45) mmHg ABG HCO3 (21-25) mmol/L ABG O2 Saturation (94-97) % Chloride (98-107) mmol/L Carbon Dioxide (22-30) mmol/L BUN (9-20) mg/dL Creatinine (0.66-1.25) mg/dL Glucose (74-99) mg/dL POC Glucose (mg/dL) 178 H (75-99) mg/dL Calcium (8.4-10.2) mg/dL Phosphorus (2.5-4.5) mg/dL Microbiology - Last 24 Hours (Table) 03/28/19 13:05 Blood Culture - Preliminary Blood No Growth after 24 hours 03/28/19 13:00 Gram Stain - Preliminary Sputum Sputum Culture - Preliminary Mayelin albicans Gram Neg Bacilli Assessment and Plan Plan: Septic shock patient is on pressor support and the sepsis secondary to ischemic bowel. Patient started having fever again repeat blood cultures were obtained and daptomycin was started to cover gram-positive organisms patient is already on Zosyn. Patient remains intubated no syncope in changes in his clinical condition neurology evaluated the patient as well. Patient does have pulmonary edema and is in atrial fibrillation. CAT scan of the head is concerning for subacute hematoma because of which neurology will evaluate the patient. EEG will be obtained -Coronary artery disease severe multivessel 33 vessel disease patient had dyspnea for 40-45% with mitral regurgitation, patient is bit volume overloaded receiving Lasix at this time IV fluids were cut down to 20 mL per hour patient is on antiplatelet statin for this -Proximal A. fib presently sinus rhythm with PVCs and patient is on amiodarone oral which will be continued -Ventilator dependent respiratory failure secondary to sepsis management as per pulmonology -Severe pulmonary hypertension -Hyperlipidemia -Type 2 diabetes mellitus continue with present regimen -Chronic kidney disease stage III with some acute kidney injury from sepsis and acute tubular necrosis chronic kidney disease secondary to diabetic nephropathy Acute renal failure: Secondary to acute tubular necrosis and prerenal azotemia which is improving -COPD with acute exacerbation -Polycystic kidney disease -Hypertension patient is presently hypotensive and is in shock -History of bladder cancer with TURP in the past Patient's overall prognosis is poor his clinical condition is guarded now. Patient's CODE STATUS is DO NOT RESUSCITATE still believe patient is more for appropriate for hospice and comfort care as in spite of aggressive measures patient did not have any significant improvement in his overall clinical condition appears to be getting worse at this time.
--- NOTE | 2019-03-29 17:04 | PN ---
PROGRESS NOTE DATE OF SERVICE: 03/29/2019 REASON FOR FOLLOWUP: Secondary peritonitis from a perforated small bowel. INTERVAL HISTORY: The patient is currently afebrile. The patient is hemodynamically slightly better. FiO2 remains stable at 40%. He has been tolerating his tube feeds. Remains sedated on the vent, unable to provide any history. PHYSICAL EXAMINATION: Blood pressure is 105/78 with a pulse of 110, temperature 98. He is 99% on 40% FiO2. General description is an elderly male lying in bed in no distress. RESPIRATORY SYSTEM: Unlabored breathing with decreased breath sounds at the base. No wheeze. HEART: S1, S2. Regular rate and rhythm. ABDOMEN: Soft. No tenderness. LABS: Hemoglobin 8.3, white count down to 24,000. BUN of 69, creatinine is 2.32. Blood culture obtained yesterday so far pending. Sputum is showing Gram-negative bacilli. DIAGNOSTIC IMPRESSION AND PLAN: Patient with sepsis with a fever and elevated white count in this patient who is status post laparotomy for small-bowel ischemia and perforation with a component of secondary peritonitis, now with a possible component of Gram-negative pneumonia. Patient is currently covered with Zosyn and daptomycin; to continue, adjusting antibiotics further on the basis of the culture report. Monitor clinical course closely. MMODL / IJN: [id number] /
[2019-03-29 17:08] LABS: Glucose,Whole Blood 190 mg/dL (75-99)
[2019-03-29 18:13] LABS: Glucose,Whole Blood 197 mg/dL (75-99)
[2019-03-29 19:10] LABS: Glucose,Whole Blood 189 mg/dL (75-99)
[2019-03-29 19:59] LABS: Glucose,Whole Blood 185 mg/dL (75-99)
[2019-03-29] MEDS: SODIUM CHLORIDE 0.9% 1,000 ML IV SCH (20:19)
[2019-03-29 21:13] LABS: Glucose,Whole Blood 181 mg/dL (75-99)
[2019-03-29 22:35] LABS: Glucose,Whole Blood 136 mg/dL (75-99)
[2019-03-30 00:01] LABS: Glucose,Whole Blood 128 mg/dL (75-99)
[2019-03-30] MEDS: PIPERACILLIN-TAZOBACTAM 3.375 GM in SODIUM CHLORIDE 0.9% 100 ML IVPB SCH ×4 (00:40→23:17)
[2019-03-30 02:08] LABS: Glucose,Whole Blood 140 mg/dL (75-99)
[2019-03-30 03:09] LABS: Glucose,Whole Blood 154 mg/dL (75-99)
[2019-03-30] MEDS: NOREPINEPHRINE 8 MG in SODIUM CHLORIDE 0.9% 250 ML IV SCH ×2 (03:11→17:16)
[2019-03-30] MEDS: INSULIN REGULAR 100 UNIT in SODIUM CHLORIDE 0.9% 100 ML IV SCH (03:12)
[2019-03-30] MEDS: HEPARIN SOD,PORK IN 0.45% NACL 25,000 UNIT in 0.45% NACL 1 250ML.BAG IV SCH ×2 (03:21→22:07)
[2019-03-30 04:11] LABS: Glucose,Whole Blood 187 mg/dL (75-99)
[2019-03-30 04:46] LABS: Basophils % (A) 0 %; Eosinophils # (A) 0.1 k/uL (0-0.7); Eosinophils % (A) 1 %; HCT 25.1 % (39.0-53.0); Hypochromasia Slight; Lymphocytes # (A) 0.4 k/uL (1.0-4.8); Lymphocytes % (A) 2 %; MCH 27.4 pg (25.0-35.0); MCHC 31.8 g/dL (31.0-37.0); MCV 86.1 fL (80.0-100.0); Mean Platelet Volume 9.7; Monocytes # (A) 0.9 k/uL (0-1.0); Monocytes % (A) 4 %; Neutrophils # (A) 22.8 k/uL (1.3-7.7); Neutrophils % (A) 94 %; Platelet Count 396 k/uL (150-450); RBC 2.92 m/uL (4.30-5.90); RDW 15.2 % (11.5-15.5); WBC 24.3 k/uL (3.8-10.6)
[2019-03-30] MEDS: PROPOFOL 1,000 MG in EMPTY BAG 1 BAG IV SCH ×3 (05:19→17:16)
[2019-03-30 05:20] LABS: Glucose,Whole Blood 168 mg/dL (75-99)
[2019-03-30 05:31] LABS: Calcium 7.6 mg/dL (8.4-10.2); Magnesium 2.1 mg/dL (1.6-2.3); Potassium 4.2 mmol/L (3.5-5.1)
[2019-03-30 05:37] LABS: Vancomycin,Random 7.5 ug/mL
--- NOTE | 2019-03-30 06:45 | XR ---
EXAMINATION TYPE: XR chest 1V portable DATE OF EXAM: 03/30/2019 CLINICAL HISTORY: Difficulty breathing progress study. TECHNIQUE: Single AP portable semiupright view of the chest is obtained. COMPARISON: Chest x-ray from one day earlier and older studies. FINDINGS: An endotracheal tube, orogastric tube, and left internal jugular central venous catheter a re all stable in appearance. Background Chronic emphysematous change with bibasilar opacities remains present. Upper lungs remain clear without pneumothorax. Cardiac silhouette size stable and mildly enlarged with atherosclerotic a marcus. Scoliotic curvature centered at thoracolumbar junction redemonstrated. IMPRESSION: Overall stable findings, chronic emphysematous change and mild cardiomegaly with small bilateral pleural effusions and associated bibasilar acute atelectasis and/or infiltrate are all rede monstrated.
[2019-03-30 06:58] LABS: Glucose,Whole Blood 136 mg/dL (75-99)
[2019-03-30 07:46] LABS: ABG HCO3 18 mmol/L (21-25); ABG Oxygen Saturation 98.1 % (94-97); ABG PCO2 28 mmHg (35-45); ABG PH 7.43 (7.35-7.45); ABG PO2 116 mmHg (83-108); ABG TCO2 19 mmol/L (19-24); Allen Test Performed? Yes
[2019-03-30] MEDS: IPRATROPIUM-ALBUTEROL 3 ML NEB INHALATION SCH ×4 (07:51→21:47)
[2019-03-30 08:35] LABS: Glucose,Whole Blood 127 mg/dL (75-99)
[2019-03-30] MEDS: DILTIAZEM 125 MG in SODIUM CHLORIDE 0.9% 100 ML IV SCH (08:42)
[2019-03-30] MEDS: PANTOPRAZOLE 40 MG/10 ML VIAL IVP SCH (08:50)
[2019-03-30] MEDS: CHLORHEXIDINE GLUCONATE 15 ML CUP MUCOUS MEM SCH ×2 (08:50→20:30)
[2019-03-30] MEDS: ASPIRIN 81 MG PO SCH (08:51)
[2019-03-30] MEDS: METOPROLOL TARTRATE 25 MG TAB PO SCH ×2 (08:51→20:30)
[2019-03-30] MEDS: FUROSEMIDE 10 MG/ML 4 ML VIAL IV SCH (08:51)
[2019-03-30] MEDS: FENOFIBRATE 160 MG TAB PO SCH (08:51)
[2019-03-30] MEDS: AMIODARONE 200 MG TAB PO SCH ×3 (08:51→20:30)
[2019-03-30 08:57] LABS: Glucose,Whole Blood 138 mg/dL (75-99)
[2019-03-30] MEDS: HYDROmorphone 1 MG/ML 1 ML SYRINGE IVP PRN ×2 (09:27→17:08)
[2019-03-30 09:56] LABS: Glucose,Whole Blood 165 mg/dL (75-99)
[2019-03-30 11:03] LABS: Glucose,Whole Blood 173 mg/dL (75-99)
[2019-03-30 11:56] LABS: Glucose,Whole Blood 157 mg/dL (75-99)
--- NOTE | 2019-03-30 11:57 | PN ---
PROGRESS NOTE Mr. Camacho is in atrial fib. Rate is moderate. I will restart Cardizem IV at 5 mg/hour. This gentleman has CAD, has developed pneumonia, respiratory failure. He is on a ventilator. Prognosis remains poor. He has significant disease in the right coronary and also significant disease with a positive FFR in LAD. This was based on a cardiac cath. His kidney function is abnormal with a creatinine of 2.05. Vitals are stable. Heart rate is about 110 irregular. JVD of 1 cm. No carotid bruit. Ejection systolic murmur is audible. Lungs reveal diminished air entry. Abdomen and lower extremity exam unchanged. Plan is to continue current medications. Prognosis remains guarded. The patient's family is considering conservative measures and comfort care type picture, but we will await further input from advanced clinical specialist, Dr. Costello. Prognosis remains guarded. MMODL / IJN: [id number] /
--- NOTE | 2019-03-30 12:49 | P.PN ---
Subjective Progress Note Date: 03/30/19 Principal diagnosis: acute hypoxic respiratory failure, multifactorial on 03/24/2019 the patient is postop day #3. The patient underwent bowel resection for an acute ischemic bowel and the patient underwent small bowel resection, ileal resection, jejunal resection with diverting jejunostomy. A breeze spontaneous breathing trial was given to him yesterday. The patient feels he became tachypneic and tachycardic and restless. This was aborted. The same will be done today. I feel that he is essentially stable. He remains on a mechanical ventilator on assist control mode at the rate of 12 with a tidal volume of 500 and FiO2 of 40% with a PEEP of 5. Chest x-ray showing pulmonary vascular congestion/small effusion the lungs left more than right. ET tube is in a good location. He is a left IJ triple lumen catheter in place. The patient was given a dose of Lasix yesterday. He did produce some urine output. His creatinine is down to 1.8. The neck fluid balance is +600 mL over the past 24 hours. The creatinine is improving. He is on and off in atrial fibrillati on. After being taken off the amiodarone drip, he was placed on oral amiodarone and this morning is back into atrial fibrillation with a controlled rate. His heart rate goes sometimes in the low 100s. The patient was seen by cardiology. Metoprolol was added. His amiodarone dose was also increased up to 200 mg 3 times a day. He is on IV heparin. He is on norepinephrine infusion which is running at a low backup rate of 0.09 g per KG per minute. He is receiving TPN for nutritional support. He is afebrile for now. All of the cultures of been negative thus far..Note that the patient has COPD,, his FEV1 is normal to 52% of predicted, he has history of diabetes and history of bladder cancer and he has history of stage III kidney disease with polycystic kidney disease disorder. Reevaluated today on 03/25/2019, patient remains on mechanical ventilation, intubated, sedated, ventilator settings are assist control rate of 12, tidal volume is 500 FiO2 40% PEEP of 5. Patient remains on insulin drip, norepinephrine drip at 0.07 mcg/kg/m, remains on propofol which I have discontinued, he is on heparin drip and on TPN. Patient is postoperative day #4. Chest x-ray showed minimal hazy densities at the bases, most likely atelectasis and possibly a small pleural effusion noted. Labs showed the PEEP cigar 20.8 hemoglobin 8.9 ABG showed a pO2 of 98 pCO2 of 40 pH of 7.40. Renal functioning is about the same, creatinine is 1.86. Patient remains on TPN. Patient is not responsive to any stimuli, hence I have discontinued his propofol, and I have switched him to a pressure support and CPAP with a pressure support of 12, previous trial of weaning have failed by Dr. Aguiar, patient developed significant tachypnea and tachycardia with CPAP, however I will try adding pressure support of 12, and we will closely monitor for potential extubation if his mental status improves. Reevaluated today on 03/26/2019, patient remains in the intensive care unit, on mechanical ventilation. Tidal volume is 500 assist control rate of 12 FiO2 is 40% and PEEP is 5. Remains on levo fed at 0.05 mcg/kg/m, still requiring propofol, insulin drip, and he is on heparin drip. Mental status is extremely poor, patient has been off propofol now for the last 2 hours, and does not seem to be waking up to follow any instructions at this point yet. Yesterday he was off sedation for 4 hours, and he was getting extremely agitated, had to be placed back on assist control mode of mechanical ventilation, and placed back on sedation. We plan to continue to do so today. Family is at bedside, however I'm a bit concerned about his mental status, even off sedation the patient does not seem to respond to any stimuli including deep painful stimuli. I would recommend a CT of the brain, I would also recommend a neurological consultation on this patient.labs today werelabs today were all reviewed.WBC count is 19.9 hemoglobin is 8.5. ABG showed a pO2 of 102 pCO2 of 32 pH of 7.45.renal profile is a bit improving BUN is 66 creatinine is 1.85. Family is at bedside, and updated on his condition. CT of the brain showed cerebral atrophy, age-related, chronic small vessel ischemia, difficult to rule out subacute ischemia. His basal ganglia showed asymmetry, hence MRI was recommended by the radiologist. Will leave that decision to the neurologist whom I will consult today.chest x- ray showed overall stable findings, chronic emphysematous changes, small pleural effusions, and minimal bibasilar atelectasis. Reevaluated today on 03/27/2019, remains intubated and mechanically ventilated. His ventilator settings are basically the same, patient is on tidal volume of 500 assist control rate of 12 FiO2 of 40% and PEEP of 5. ABG this morning showed a pO2 of 73 pCO2 of 29 pH of 7.45. Chest x-ray is showing evidence of interstitial edema. Patient is having intermittent episodes of atrial f ibrillation with RVR, and his beta luisa dose was increased by cardiology. Remains on insulin drip, propofol drip, remains on antibiotics, remains on enteral feeding and on TPN. Will likely discontinue TPN once the enteral feeding is up to goal. Mental status owens remains poor, in the last few days I have been trying daily to hold sedation and assessment of status, however his mental status is extremely poor, and his CT of the brain was done by neurology, his basal ganglia showed asymmetry, and radiologist suggested possible MRI. However that will be decided upon by neurology on the case. Otherwise his CT of the brain is unremarkable. There is age-related cortical atrophy. Considering his chest x-ray showing evidence of slight interstitial edema, I have recommended a dose of Lasix 40 mg IV push to be given today. Patient remains hemodynamically stable in spite of his atrial fibrillation and RVR, and considering his cardiac findings I would recommend no plans to hold sedation today, place him back on propofol, and continue supportive care measures. Considering the overall picture, May have to seriously considered tracheostomy on this patient sometime next week. I doubt if we would be able to successfully wean the patient at this time. Reevaluated today on 03/28/2019, patient remains in the ICU, intubated, and mechanically ventilated. His ventilator settings are assist control rate of 16, volume is 500 FiO2 40% PEEP is 5. Patient is still experiencing intermittent episodes of atrial fibrillation and RVR, required placement on Cardizem drip, his beta luisa dose was increased, patient is also now requiring norepinephrine at 0.22 mcg/kg/m. Remains on propofol which I will increase to 50 mcg/kg/m. Patient remains tachypnea, tachycardic, in atrial fibrillation with RVR at times. Since Cardizem was started, the rate seems to be better controlled. But he is now hypotensive requiring norepinephrine. Chest x-ray is showing evidence of congestive heart failure and bilateral effusions with atelectasis. Pneumonia is not entirely ruled out but felt to be less likely at this point. Family is at bedside, and they were updated on his condition including his neurological condition which seems to be extremely poor and the patient does not respond to any painful stimuli. Updated on his cardiac condition, pulmonary condition, GI condition, and his renal issues. Clearly the patient has a multi organ system failure, and his prognosis is becoming poorer a nd poorer. Today I even touch bases with the family regarding tracheostomy if the patient doesn't improve in the next few days, or possibly consider comfort care measures. The family seems to be inclined to proceed with comfort care measures if we get to that point of addressing tracheostomy. In the meantime the CODE STATUS was changed to DO NOT RESUSCITATE CODE STATUS. WBC count is up to 30.9 hemoglobin is 8.6. ABG showed a pO2 of 68 pCO2 of 30 pH of 7.43. BUN is up to 72 creatinine is up to 2.41. Worsening leukocytosis was noted today, patient remains on Zosyn which I started yesterday. I will recommend the blood cultures to be done. And sputum cultures reevaluated. May even have to consider CT of the abdomen and pelvis for evaluation of possible abdominal abscess. However the patient is an extremely poor surgical candidate at this point. Reevaluated today on 03/29/2019, remains intubated, mechanically ventilated, ventilator settings are unchanged, he is now on tidal volume of 500 assist control rate of 16 FiO2 40% and PEEP of 5. Patient is now in sinus rhythm, he converted to sinus rhythm yesterday about 1 PM. Remains on multiple drips including propofol, levo fed at 0. one 4 mcg/kg/m, he is also on heparin drip, insulin drip, and remains on antibiotics/Zosyn and daptomycin was added as per infectious disease on the case. Patient is now on propofol which I plan to taper down and reassess mental status again, however his mental status has been extremely poor over the last 5 days. Chest x-ray is showing improvement in his pulmonary edema. Renal status is abnormal but remains basically about the same. WBC count is down to 24.9 hemoglobin is 8.3. ABG showed a pO2 of 102 pCO2 of 30 0 pH of 7.41. BUN is 69 creatinine 2.32. Patient remains on TPN and enteral feeding. Family is at bedside, and updated on his condition. EEG is suggestive of generalized cerebral dysfunction consistent with toxic metabolic encephalopathy. No seizure activity was seen Reevaluated today on 03/30/2019, remains intubated, on mechanical ventilation, his ventilator settings are assist control rate of 16, tidal volume is 500, FiO2 is 40%, PEEP is 5. Patient remains on multiple drips, he went into atrial fibrillation with RVR today, and now he is on Cardizem drip at 5 mg per hour. He is also on norepinephrine at 10 mcg/m, patient is also on propofol, and on insulin drip. Neurologically, the patient is about the same, no major change noted in the last 24 hours, continues to have no responses whether he is on or off propofol. Patient does not respond to any painful or verbal stimuli. Continues to breathe intermittently over the ventilator. Pupils are not clearly reacting. Oculocephalics absent, corneal reflexes present. Continues to have leukocytosis with WBC count of 24.3 hemoglobin is 8. ABG this morning showed a pO2 of 116 pCO2 of 28 pH of 7.43. BUN is 64 creatinine 2.05, basically about the same in the last few days. Chest x-ray continues to show cardiomegaly and small bilateral pleural effusions with associated bibasilar atelectasis or in filtrates. Updated his family on his condition, and most likely if no improvement in the next couple of days, family is willing to consider comfort care measures. Objective - Vital Signs Vital signs: Vital Signs Temp 99 F 03/30/19 08:00 Pulse 118 H 03/30/19 11:35 Resp 20 03/30/19 11:30 BP 117/69 03/30/19 11:30 Pulse Ox 98 03/30/19 11:30 Intake & Output 03/29/19 03/30/19 03/30/19 18:59 06:59 18:59 Intake Total 1848.090 1061.553 590.862 Output Total 4050 2080 425 Balance -2839.397 -413.447 165.862 Weight 79.3 kg 80.2 kg Intake: IV 120 220 180 .9 20 220 60 Cardizem 20 Piperacillin-Tazobactam 3 100 100 .375 gm In Sodium Chloride 0.9% 100 ml @ 25 mls/hr IVPB Q8HR [facility] Rx# :[id number] Intake, IV Titration 611.603 694.553 106.862 Amount DAPTOmycin 500 mg In 100 Sodium Chloride 0.9% 50 ml @ 100 mls/hr IVPB Q48H [facility] Rx#:[id number] Diltiazem 125 mg In 0 Sodium Chloride 0.9% 100 ml @ 5 MG/HR 5 mls/hr IV .Q24H [facility] Rx#:[id number] Heparin Sod,Pork in 0.45% 250 206.91 NaCl 25,000 unit In 0.45 % NaCl 1 250ml.bag @ 12 UNITS/KG/HR 8.712 mls/hr IV .Q24H [facility] Rx#: [id number] Insulin Regular 100 unit 34.079 50.038 0 In Sodium Chloride 0.9% 100 ml @ Per Protocol IV .Q0M [facility] Rx#:[id number] Norepinephrine 8 mg In 119.392 288.256 29.958 Sodium Chloride 0.9% 250 ml @ 0.05 MCG/KG/MIN 7.44 mls/hr IV .Q24H [facility] Rx#: [id number] Propofol 1,000 mg In 108.132 149.349 76.904 Empty Bag 1 bag @ Titrate IV .Q0M [facility] Rx#: [id number] Oral 60 Tube Feeding 379 662 214 Other 100 90 30 Output: Gastric Drainage 600 Urine 2350 1080 425 Stool 1700 400 Other: Voiding Method Indwelling Catheter Indwelling Catheter # Voids 1 ABP, PAP, CO, CI - Last Documented Arterial Blood Pressure 106/46 - Exam Physical Exam: Revealed a 73-year-old white male intubated on mechanical ve ntilation, on propofol again, unresponsive to painful stimuli. Head: Atraumatic, normocephalic. Endotracheal tube and orogastric tube are intact. HEENT:[Neck is supple.] [No neck masses.] [No thyromegaly.] [No JVD.] Pupils nonreactive to light. Chest: [Symmetrical chest expansion, crackles at the bases bilaterally. Some wheezing. Cardiac Exam: [Normal S1 and S2, no S3 gallop, no murmur.] Abdomen: [ reveals positive bowel sounds, jejunostomy site is viable and there is some liquidy material in the back. Extremities: [No clubbing, no edema, no cyanosis.] Neurological Exam: Comatose, pupils not clearly reacting, absent oculocephalics, present corneal reflexes, Psychiatric: Cannot be assessed Skin: No rashes. - Labs CBC & Chem 7: 03/30/19 04:10 03/30/19 04:10 Labs: Abnormal Lab Results - Last 24 Hours (Table) 03/29/19 03/29/19 03/29/19 Range/Units 13:52 15:21 17:06 WBC (3.8-10.6) k/uL RBC (4.30-5.90) m/uL Hgb (13.0-17.5) gm/dL Hct (39.0-53.0) % Neutrophils # (1.3-7.7) k/uL Lymphocytes # (1.0-4.8) k/uL APTT (22.0-30.0) sec ABG pCO2 (35-45) mmHg ABG pO2 (83-108) mmHg ABG HCO3 (21-25) mmol/L ABG O2 Saturation (94-97) % Chloride (98-107) mmol/L Carbon Dioxide (22-30) mmol/L BUN (9-20) mg/dL Creatinine (0.66-1.25) mg/dL Glucose (74-99) mg/dL POC Glucose (mg/dL) 178 H 178 H 190 H (75-99) mg/dL Calcium (8.4-10.2) mg/dL 03/29/19 03/29/19 03/29/19 Range/Units 18:11 19:09 19:58 WBC (3.8-10.6) k/uL RBC (4.30-5.90) m/uL Hgb (13.0-17.5) gm/dL Hct (39.0-53.0) % Neutrophils # (1.3-7.7) k/uL Lymphocytes # (1.0-4.8) k/uL APTT (22.0-30.0) sec ABG pCO2 (35-45) mmHg ABG pO2 (83-108) mmHg ABG HCO3 (21-25) mmol/L ABG O2 Saturation (94-97) % Chloride (98-107) mmol/L Carbon Dioxide (22-30) mmol/L BUN (9-20) mg/dL Creatinine (0.66-1.25) mg/dL Glucose (74-99) mg/dL POC Glucose (mg/dL) 197 H 189 H 185 H (75-99) mg/dL Calcium (8.4-10.2) mg/dL 03/29/19 03/29/19 03/30/19 Range/Units 21:12 22:34 00:00 WBC (3.8-10.6) k/uL RBC (4.30-5.90) m/uL Hgb (13.0-17.5) gm/dL Hct (39.0-53.0) % Neutrophils # (1.3-7.7) k/uL Lymphocytes # (1.0-4.8) k/uL APTT (22.0-30.0) sec ABG pCO2 (35-45) mmHg ABG pO2 (83-108) mmHg ABG HCO3 (21-25) mmol/L ABG O2 Saturation (94-97) % Chloride (98-107) mmol/L Carbon Dioxide (22-30) mmol/L BUN (9-20) mg/dL Creatinine (0.66-1.25) mg/dL Glucose (74-99) mg/dL POC Glucose (mg/dL) 181 H 136 H 128 H (75-99) mg/dL Calcium (8.4-10.2) mg/dL 03/30/19 03/30/19 03/30/19 Range/Units 02:06 03:07 04:10 WBC (3.8-10.6) k/uL RBC (4.30-5.90) m/uL Hgb (13.0-17.5) gm/dL Hct (39.0-53.0) % Neutrophils # (1.3-7.7) k/uL Lymphocytes # (1.0-4.8) k/uL APTT (22.0-30.0) sec ABG pCO2 (35-45) mmHg ABG pO2 (83-108) mmHg ABG HCO3 (21-25) mmol/L ABG O2 Saturation (94-97) % Chloride 117 H (98-107) mmol/L Carbon Dioxide 17 L (22-30) mmol/L BUN 64 H (9-20) mg/dL Creatinine 2.05 H (0.66-1.25) mg/dL Glucose 181 H (74-99) mg/dL POC Glucose (mg/dL) 140 H 154 H (75-99) mg/dL Calcium 7.6 L (8.4-10.2) mg/dL 03/30/19 03/30/19 03/30/19 Range/Units 04:10 04:10 04:10 WBC 24.3 H (3.8-10.6) k/uL RBC 2.92 L (4.30-5.90) m/uL Hgb 8.0 L (13.0-17.5) gm/dL Hct 25.1 L (39.0-53.0) % Neutrophils # 22.8 H (1.3-7.7) k/uL Lymphocytes # 0.4 L (1.0-4.8) k/uL APTT 59.8 H (22.0-30.0) sec ABG pCO2 (35-45) mmHg ABG pO2 (83-108) mmHg ABG HCO3 (21-25) mmol/L ABG O2 Saturation (94-97) % Chloride (98-107) mmol/L Carbon Dioxide (22-30) mmol/L BUN (9-20) mg/dL Creatinine (0.66-1.25) mg/dL Glucose (74-99) mg/dL POC Glucose (mg/dL) 187 H (75-99) mg/dL Calcium (8.4-10.2) mg/dL 03/30/19 03/30/19 03/30/19 Range/Units 05:18 06:57 07:39 WBC (3.8-10.6) k/uL RBC (4.30-5.90) m/uL Hgb (13.0-17.5) gm/dL Hct (39.0-53.0) % Neutrophils # (1.3-7.7) k/uL Lymphocytes # (1.0-4.8) k/uL APTT (22.0-30.0) sec ABG pCO2 28 L (35-45) mmHg ABG pO2 116 H (83-108) mmHg ABG HCO3 18 L (21-25) mmol/L ABG O2 Saturation 98.1 H (94-97) % Chloride (98-107) mmol/L Carbon Dioxide (22-30) mmol/L BUN (9-20) mg/dL Creatinine (0.66-1.25) mg/dL Glucose (74-99) mg/dL POC Glucose (mg/dL) 168 H 136 H (75-99) mg/dL Calcium (8.4-10.2) mg/dL 03/30/19 03/30/19 03/30/19 Range/Units 08:33 08:56 09:54 WBC (3.8-10.6) k/uL RBC (4.30-5.90) m/uL Hgb (13.0-17.5) gm/dL Hct (39.0-53.0) % Neutrophils # (1.3-7.7) k/uL Lymphocytes # (1.0-4.8) k/uL APTT (22.0-30.0) sec ABG pCO2 (35-45) mmHg ABG pO2 (83-108) mmHg ABG HCO3 (21-25) mmol/L ABG O2 Saturation (94-97) % Chloride (98-107) mmol/L Carbon Dioxide (22-30) mmol/L BUN (9-20) mg/dL Creatinine (0.66-1.25) mg/dL Glucose (74-99) mg/dL POC Glucose (mg/dL) 127 H 138 H 165 H (75-99) mg/dL Calcium (8.4-10.2) mg/dL 03/30/19 03/30/19 Range/Units 11:01 11:55 WBC (3.8-10.6) k/uL RBC (4.30-5.90) m/uL Hgb (13.0-17.5) gm/dL Hct (39.0-53.0) % Neutrophils # (1.3-7.7) k/uL Lymphocytes # (1.0-4.8) k/uL APTT (22.0-30.0) sec ABG pCO2 (35-45) mmHg ABG pO2 (83-108) mmHg ABG HCO3 (21-25) mmol/L ABG O2 Saturation (94-97) % Chloride (98-107) mmol/L Carbon Dioxide (22-30) mmol/L BUN (9-20) mg/dL Creatinine (0.66-1.25) mg/dL Glucose (74-99) mg/dL POC Glucose (mg/dL) 173 H 157 H (75-99) mg/dL Calcium (8.4-10.2) mg/dL Microbiology - Last 24 Hours (Table) 03/28/19 13:00 Gram Stain - Final Sputum Sputum Culture - Final Mayelin albicans Klebsiella oxytoca 03/28/19 13:05 Blood Culture - Preliminary Blood No Growth after 24 hours Assessment and Plan Assessment: Impression: Severe multivessel coronary artery disease, post non-ST elevation myocardial infarction. No surgical plans at present Ischemic cardiomyopathy and LV dysfunction ejection fraction of 35%. Associated with intermittent episodes of pulmonary edema, improving with diuretics. Severe pulmonary hypertension Moderate severe mitral regurgitation Acute ischemic small bowel requiring exploratory laparotomy, and ileal/a jejunostomy resection and diverting jejunostomy. Type 2 diabetes, currently on insulin as per protocol. . Polycystic kidney disease. Chronic obstructive pulmonary disease and chronic smoking history. Chronic stage III kidney failure with acute on chronic kidney disease Benign essential hypertension. Severe pulmonary hypertension and moderate to severe mitral regurgitation postoperative hypoxic respiratory failure, multifactorial, secondary to ischemic cardiomyopathy, LV dysfunction, severe pulmonary hypertension, underlying COPD, and moderate to severe mitral regurgitation. This is not expected. Paroxysmal atrial fibrillation with RVR, being addressed by cardiology. His beta luisa dose was increased. Acute pulmonary edema secondary to systolic congestive heart failure. Severe metabolic encephalopathy with extremely poor mental status. EEG is suggestive of severe toxic metabolic encephalopathy. Recommendation: Continue ventilatory support, Resume sedation as per protocol. Daily interruption of sedation and assessment of mental status. Hemodynamic support, continue norepinephrine. Presently on 10 mcg/m. Continue Cardizem for atrial fibrillation with RVR. Continue diuretics. Continue empiric antibiotics. Continue Zosyn and daptomycin. As per infectious disease on the case. Continue cardiac meds Daily monitoring of electrolytes and renal profile. Continue daily chest x-rays. Continue GI and DVT prophylaxis. Discussed his condition with the family again at bedside, updated on his condition, and given a very poor prognostic picture. Family is willing to consider comfort care measures and possible withdrawal of mechanical ventilation in the next 24-48 hours. We'll continue to follow. Critical care time is 33 minutes. Time with Patient: Greater than 30
[2019-03-30 13:07] LABS: Glucose,Whole Blood 128 mg/dL (75-99)
[2019-03-30 14:07] LABS: Glucose,Whole Blood 133 mg/dL (75-99)
--- NOTE | 2019-03-30 14:15 | P.PN ---
Subjective Progress Note Date: 03/30/19 CHIEF COMPLAINT: History of ischemic small bowel HISTORY OF PRESENT ILLNESS: The patient is a 73-year-old gentleman in the ICU on full ventilatory support who status post laparotomy with small bowel resection for small bowel ischemia jejunojejunostomy. Per critical care team, no significant cognitive improvements. Family considering comfort measures, ROS: No fevers or chills. PHYSICAL EXAM: VITAL SIGNS: Reviewed CONSTITUTIONAL: Well developed and in no acute distress. EYES: Conjuctivae without sclera icterus. Extraocular movements grossly intact. HEAD, EARS, NOSE, THROAT: Moist buccal mucosa. Head is atraumatic, normocephalic. Hears conversational speech. No nasal drainage. NECK: Supple. RESPIRATORY: Non-labored respirations and equal bilateral excursions on mechanical ventilation. CARDIOVASCULAR: Palpable 2+ radial pulses. ABDOMEN: Soft. Non-tender. MUSCULOSKELETAL: No gross deformity of the lower extremities noted. No clubbing. No cyanosis. SKIN: Good skin turgor. Well perfused. NEUROLOGIC: Cranial nerves I through XII grossly intact. No focal or lateralizi ng signs. PSYCH: Appropriate affect. Alert and oriented to person, place and time. CLINCAL LABS: Reviewed with hemoglobin trending downward from 8.6-8.3, now 8.0 today. WBC persistently elevated over 24,000 IMAGES: Chest x-ray independently reviewed without free air. No evidence of lung consolidation. No pneumothorax. RADIOLOGY: Report reviewed. Demonstrates chronic emphysema. Bilateral small pleural effusions. ASSESSMENT: 1. Status post small bowel resection for small bowel infarction 2. Mechanical vent dependent respiratory failure 3. Persistent leukocytosis with sepsis 4. Ischemic cardiomyopathy PLAN: 1. Overall, guarded prognosis. 2. Family considering comfort measures. Objective - Vital Signs Vital signs: Vital Signs Temp 98.6 F 03/30/19 05:30 Pulse 108 H 03/30/19 08:20 Resp 32 H 03/30/19 07:00 BP 102/52 03/30/19 07:00 Pulse Ox 99 03/30/19 07:00 Intake & Output 03/29/19 03/30/19 03/30/19 18:59 06:59 18:59 Intake Total 3471.711 3508.553 168.862 Output Total 4050 2080 75 Balance -2839.397 -413.447 93.862 Weight 79.3 kg 80.2 kg Intake: IV 120 220 20 .9 20 220 20 Piperacillin-Tazobactam 3 100 .375 gm In Sodium Chloride 0.9% 100 ml @ 25 mls/hr IVPB Q8HR [facility] Rx# :[id number] Intake, IV Titration 611.603 694.553 106.862 Amount DAPTOmycin 500 mg In 100 Sodium Chloride 0.9% 50 ml @ 100 mls/hr IVPB Q48H [facility] Rx#:[id number] Diltiazem 125 mg In 0 Sodium Chloride 0.9% 100 ml @ 5 MG/HR 5 mls/hr IV .Q24H [facility] Rx#:[id number] Heparin Sod,Pork in 0.45% 250 206.91 NaCl 25,000 unit In 0.45 % NaCl 1 250ml.bag @ 12 UNITS/KG/HR 8.712 mls/hr IV .Q24H [facility] Rx#: [id number] Insulin Regular 100 unit 34.079 50.038 0 In Sodium Chloride 0.9% 100 ml @ Per Protocol IV .Q0M [facility] Rx#:[id number] Norepinephrine 8 mg In 119.392 288.256 29.958 Sodium Chloride 0.9% 250 ml @ 0.05 MCG/KG/MIN 7.44 mls/hr IV .Q24H [facility] Rx#: [id number] Propofol 1,000 mg In 108.132 149.349 76.904 Empty Bag 1 bag @ Titrate IV .Q0M [facility] Rx#: [id number] Tube Feeding 379 662 42 Other 100 90 Output: Gastric Drainage 600 Urine 2350 1080 75 Stool 1700 400 Other: Voiding Method Indwelling Catheter Indwelling Catheter # Voids 1 ABP, PAP, CO, CI - Last Documented Arterial Blood Pressure 107/42 - Labs CBC & Chem 7: 03/30/19 04:10 03/30/19 04:10 Labs: Abnormal Lab Results - Last 24 Hours (Table) 03/29/19 03/29/19 03/29/19 Range/Units 12:03 13:52 15:21 WBC (3.8-10.6) k/uL RBC (4.30-5.90) m/uL Hgb (13.0-17.5) gm/dL Hct (39.0-53.0) % Neutrophils # (1.3-7.7) k/uL Lymphocytes # (1.0-4.8) k/uL APTT (22.0-30.0) sec ABG pCO2 (35-45) mmHg ABG pO2 (83-108) mmHg ABG HCO3 (21-25) mmol/L ABG O2 Saturation (94-97) % Chloride (98-107) mmol/L Carbon Dioxide (22-30) mmol/L BUN (9-20) mg/dL Creatinine (0.66-1.25) mg/dL Glucose (74-99) mg/dL POC Glucose (mg/dL) 157 H 178 H 178 H (75-99) mg/dL Calcium (8.4-10.2) mg/dL 03/29/19 03/29/19 03/29/19 Range/Units 17:06 18:11 19:09 WBC (3.8-10.6) k/uL RBC (4.30-5.90) m/uL Hgb (13.0-17.5) gm/dL Hct (39.0-53.0) % Neutrophils # (1.3-7.7) k/uL Lymphocytes # (1.0-4.8) k/uL APTT (22.0-30.0) sec ABG pCO2 (35-45) mmHg ABG pO2 (83-108) mmHg ABG HCO3 (21-25) mmol/L ABG O2 Saturation (94-97) % Chloride (98-107) mmol/L Carbon Dioxide (22-30) mmol/L BUN (9-20) mg/dL Creatinine (0.66-1.25) mg/dL Glucose (74-99) mg/dL POC Glucose (mg/dL) 190 H 197 H 189 H (75-99) mg/dL Calcium (8.4-10.2) mg/dL 03/29/19 03/29/19 03/29/19 Range/Units 19:58 21:12 22:34 WBC (3.8-10.6) k/uL RBC (4.30-5.90) m/uL Hgb (13.0-17.5) gm/dL Hct (39.0-53.0) % Neutrophils # (1.3-7.7) k/uL Lymphocytes # (1.0-4.8) k/uL APTT (22.0-30.0) sec ABG pCO2 (35-45) mmHg ABG pO2 (83-108) mmHg ABG HCO3 (21-25) mmol/L ABG O2 Saturation (94-97) % Chloride (98-107) mmol/L Carbon Dioxide (22-30) mmol/L BUN (9-20) mg/dL Creatinine (0.66-1.25) mg/dL Glucose (74-99) mg/dL POC Glucose (mg/dL) 185 H 181 H 136 H (75-99) mg/dL Calcium (8.4-10.2) mg/dL 03/30/19 03/30/19 03/30/19 Range/Units 00:00 02:06 03:07 WBC (3.8-10.6) k/uL RBC (4.30-5.90) m/uL Hgb (13.0-17.5) gm/dL Hct (39.0-53.0) % Neutrophils # (1.3-7.7) k/uL Lymphocytes # (1.0-4.8) k/uL APTT (22.0-30.0) sec ABG pCO2 (35-45) mmHg ABG pO2 (83-108) mmHg ABG HCO3 (21-25) mmol/L ABG O2 Saturation (94-97) % Chloride (98-107) mmol/L Carbon Dioxide (22-30) mmol/L BUN (9-20) mg/dL Creatinine (0.66-1.25) mg/dL Glucose (74-99) mg/dL POC Glucose (mg/dL) 128 H 140 H 154 H (75-99) mg/dL Calcium (8.4-10.2) mg/dL 03/30/19 03/30/19 03/30/19 Range/Units 04:10 04:10 04:10 WBC 24.3 H (3.8-10.6) k/uL RBC 2.92 L (4.30-5.90) m/uL Hgb 8.0 L (13.0-17.5) gm/dL Hct 25.1 L (39.0-53.0) % Neutrophils # 22.8 H (1.3-7.7) k/uL Lymphocytes # 0.4 L (1.0-4.8) k/uL APTT 59.8 H (22.0-30.0) sec ABG pCO2 (35-45) mmHg ABG pO2 (83-108) mmHg ABG HCO3 (21-25) mmol/L ABG O2 Saturation (94-97) % Chloride 117 H (98-107) mmol/L Carbon Dioxide 17 L (22-30) mmol/L BUN 64 H (9-20) mg/dL Creatinine 2.05 H (0.66-1.25) mg/dL Glucose 181 H (74-99) mg/dL POC Glucose (mg/dL) (75-99) mg/dL Calcium 7.6 L (8.4-10.2) mg/dL 03/30/19 03/30/19 03/30/19 Range/Units 04:10 05:18 06:57 WBC (3.8-10.6) k/uL RBC (4.30-5.90) m/uL Hgb (13.0-17.5) gm/dL Hct (39.0-53.0) % Neutrophils # (1.3-7.7) k/uL Lymphocytes # (1.0-4.8) k/uL APTT (22.0-30.0) sec ABG pCO2 (35-45) mmHg ABG pO2 (83-108) mmHg ABG HCO3 (21-25) mmol/L ABG O2 Saturation (94-97) % Chloride (98-107) mmol/L Carbon Dioxide (22-30) mmol/L BUN (9-20) mg/dL Creatinine (0.66-1.25) mg/dL Glucose (74-99) mg/dL POC Glucose (mg/dL) 187 H 168 H 136 H (75-99) mg/dL Calcium (8.4-10.2) mg/dL 03/30/19 03/30/19 03/30/19 Range/Units 07:39 08:33 08:56 WBC (3.8-10.6) k/uL RBC (4.30-5.90) m/uL Hgb (13.0-17.5) gm/dL Hct (39.0-53.0) % Neutrophils # (1.3-7.7) k/uL Lymphocytes # (1.0-4.8) k/uL APTT (22.0-30.0) sec ABG pCO2 28 L (35-45) mmHg ABG pO2 116 H (83-108) mmHg ABG HCO3 18 L (21-25) mmol/L ABG O2 Saturation 98.1 H (94-97) % Chloride (98-107) mmol/L Carbon Dioxide (22-30) mmol/L BUN (9-20) mg/dL Creatinine (0.66-1.25) mg/dL Glucose (74-99) mg/dL POC Glucose (mg/dL) 127 H 138 H (75-99) mg/dL Calcium (8.4-10.2) mg/dL 03/30/19 03/30/19 Range/Units 09:54 11:01 WBC (3.8-10.6) k/uL RBC (4.30-5.90) m/uL Hgb (13.0-17.5) gm/dL Hct (39.0-53.0) % Neutrophils # (1.3-7.7) k/uL Lymphocytes # (1.0-4.8) k/uL APTT (22.0-30.0) sec ABG pCO2 (35-45) mmHg ABG pO2 (83-108) mmHg ABG HCO3 (21-25) mmol/L ABG O2 Saturation (94-97) % Chloride (98-107) mmol/L Carbon Dioxide (22-30) mmol/L BUN (9-20) mg/dL Creatinine (0.66-1.25) mg/dL Glucose (74-99) mg/dL POC Glucose (mg/dL) 165 H 173 H (75-99) mg/dL Calcium (8.4-10.2) mg/dL Microbiology - Last 24 Hours (Table) 03/28/19 13:00 Gram Stain - Final Sputum Sputum Culture - Final Mayelin albicans Klebsiella oxytoca 03/28/19 13:05 Blood Culture - Preliminary Blood No Growth after 24 hours Assessment and Plan (1) Small bowel infarction Current Visit: Yes Status: Acute Code(s): K55.029 - ACUTE INFARCTION OF SMALL INTESTINE, EXTENT UNSPECIFIED SNOMED Code(s): 257701432 (2) COPD (chronic obstructive pulmonary disease) with emphysema Current Visit: Yes Status: Acute Code(s): J43.9 - EMPHYSEMA, UNSPECIFIED SNOMED Code(s): 25191524 (3) Sepsis associated hypotension Current Visit: Yes Status: Acute Code(s): A41.9 - SEPSIS, UNSPECIFIED ORGANISM; I95.9 - HYPOTENSION, UNSPECIFIED SNOMED Code(s): 31277708 (4) Ischemic cardiomyopathy Current Visit: Yes Status: Acute Code(s): I25.5 - ISCHEMIC CARDIOMYOPATHY SNOMED Code(s): 389467874 (5) Ventilator dependent Current Visit: Yes Status: Acute Code(s): Z99.11 - DEPENDENCE ON RESPIRATOR [VENTILATOR] STATUS SNOMED Code(s): 858271180 (6) Respiratory failure Current Visit: Yes Status: Acute Code(s): J96.90 - RESPIRATORY FAILURE, UNSP, UNSP W HYPOXIA OR HYPERCAPNIA SNOMED Code(s): 898307026 (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
[2019-03-30] MEDS ORDERED: ANIDULAFUNGIN 200 MG in SODIUM CHLORIDE 0.9% 200 ML IVPB ONE (15:00)
--- NOTE | 2019-03-30 15:05 | P.PN ---
Subjective Patient is status post laparotomy for a small wall ischemia consider necrosis. The patient the surgical risk is very high as it wasn't emergent surgery patient underwent surgery and patient is presently intubated patient in shock broad- spectrum antibiotics patient on propofol and norepinephrine. Patient was having a low-grade temperatures and patient is presently receiving TPN for nutritional support. Patient has colostomy as well patient has a major three-vessel disease and patient was in A. fib patient of the proximal A. fib presently on amiodarone wasn't is sinus rhythm was sinus tachycardia. Does have history of chronic kidney disease stage III from polycystic kidney 03/23/2019 No significant change in clinical condition patient remains on norepinephrine remains intubated. Patient urine output is good patient remains on normal saline at 100 mL per hour. 03/24/2019 Patient is bit more awake today weaning of sedation although patient did undergo spontaneous breathing trial yet today. Patient is still on norepinephrine, IV heparin, IV normal saline which is cut down to 20 mL now patient actually received Lasix with the good urine output. 03/25/2019 Patient is norepinephrine is being weaned off, patient is presently receiving IV Lasix patient has small left pleural effusion creatinine although improved to 1.86 sedation is being discontinued and patient will undergo weaning trial. 03/26/2019 patient's propofol was discontinued in spite of which the patient is not responding as expected by the client application support engineer because of which patient underwent CAT scan of the head. CAT scan didn't show any intracranial bleed but sed rate cannot rule out subacute ischemia and recommended an MRI and neurology was subsequently consulted. Patient is still on norepinephrine, heparin drip and insulin drip. Not sure patient will need to continue the antibiotics will discuss with infectious disease 03/27/2019 Patient remains mechanically intubated patient is not responding well in spite of aggressive therapy considering his age and overall medical problems probably hospice and comfort care is more appropriate choice. Neurology is evaluating the patient. EEG is being will be obtained patient remains on propofol occasionally breathing over the ventilator patient does have cough reflex gag reflex. 03/28/2019 Patient has worsening leukocytosis because of which abdominal CAT scan is being obtained to rule out any intra-abdominal abscess. Patient is not doing well overall patient does have pulmonary edema started having fevers again patient remains on broad-spectrum antibiotics. As patient's sputum cultures are positiv e for Mayelin albicans. Patient remains on Zosyn. Repeat blood cultures will be obtained infectious disease will be consulted patient will be started on vancomycin. remains intubated patient is presently on Cardizem drip. Patient is also on amiodarone 03/29/2019 Patient remains on all the above-mentioned drips as yesterday. No significant improvement in his clinical condition except for some improvement in his serum creatinine. In spite of aggressive therapy and aggressive treatment patient did not recover well the chance of his reasonable recovery is very low. Even he recovers patient will not be a candidate for coronary artery bypass grafting without which patient's quality of life will be poor and frequent anginal episodes. Because of these reasons I believe patient is more appropriate for hospice. 03/30/2019 Patient was in the ICU intubated and sedated. Patient could not provide information.patient stillpatient still tachycardic of 121-138, he has a fever today of 100F, blood pressure 112/60 and his oxygen saturation 96% on FiO2 of 40%. He has leukocytosis of 20 4.3K.sugar is controlled. Creatinine 2.0, which is at baseline.patient remains on heparin drip and Zosyn, antifungal eraxis added today. He is on amiodarone.also aspirin and pain management Review of systems: Unable to obtain due to his clinical condition Active Medications Generic Name Dose Route Start Last Admin Trade Name Freq PRN Reason Stop Dose Admin Acetaminophen 650 mg 03/28/19 13:09 03/28/19 13:28 Tylenol Tab PO 650 mg Q4HR PRN Administration Fever and/ or Pain Albuterol/Ipratropium 3 ml 03/14/19 09:11 03/27/19 23:33 Duoneb 0.5 Mg-3 Mg/3 Ml Soln INHALATION 3 ml RT-QID PRN Administration Shortness Of Breath Or Wheezing Albuterol/Ipratropium 3 ml 03/14/19 12:00 03/30/19 11:24 Duoneb 0.5 Mg-3 Mg/3 Ml Soln INHALATION 3 ml RT-QID ISAAC Administration Alprazolam 0.25 mg 03/13/19 06:23 03/18/19 21:57 Xanax PO 0.25 mg Q6HR PRN Administration Mild Anxiety Alprazolam 0.5 mg 03/13/19 06:23 03/27/19 08:09 Xanax PO 0.5 mg Q6HR PRN Administration Moderate Anxiety Amiodarone HCl 200 mg 03/24/19 16:00 03/30/19 08:51 Cordarone PO 200 mg TID ISAAC Administration Aspirin 81 mg 03/14/19 09:00 03/30/19 08:51 Aspirin PO 81 mg DAILY ISAAC Administration Chlorhexidine Gluconate 15 ml 03/21/19 21:00 03/30/19 08:50 Peridex MUCOUS MEM 15 ml BID ISAAC Administration Fenofibrate 160 mg 03/14/19 09:00 03/30/19 08:51 Lofibra PO 160 mg DAILY ISAAC Administration Furosemide 40 mg 03/29/19 09:00 03/30/19 08:51 Lasix IV 40 mg DAILY ISAAC Administration Heparin Sodium (Porcine) 0 unit 03/22/19 11:50 03/26/19 07:50 Heparin IV 4,000 unit PER PROTOCOL PRN Administration Low PTT Protocol Hydralazine HCl 10 mg 03/19/19 07:42 Apresoline IVP Q4HR PRN Blood Pressure - High Hydromorphone HCl 1 mg 03/19/19 11:51 03/30/19 09:27 Dilaudid IVP 1 mg Q3HR PRN Administration Pain Insulin Human Regular 100 unit 101 mls @ 0 mls/hr 03/20/19 09:45 03/30/19 13:07 / Sodium Chloride IV 0 units/hr .Q0M ISAAC 0 mls/hr Titration Protocol Per Protocol Sodium Chloride 1,000 mls @ 20 mls/hr 03/20/19 11:15 03/29/19 20:19 Saline 0.9% IV 20 mls/hr .Q24H ISAAC Administration Heparin Sodium/Sodium Chloride 250 mls @ 8.712 mls/hr 03/22/19 12:00 03/30/19 03:21 25,000 unit/ Sodium Chloride IV 19 units/kg/hr .Q24H ISAAC 13.794 mls/hr Administration Protocol 12 UNITS/KG/HR Norepinephrine Bitartrate 8 mg 258 mls @ 7.44 mls/hr 03/23/19 12:00 03/30/19 10:10 / Sodium Chloride IV 0.18 mcg/kg/min .Q24H ISAAC 26.784 mls/hr Titration Protocol 0.05 MCG/KG/MIN Piperacillin Sod/Tazobactam 100 mls @ 25 mls/hr 03/27/19 08:00 03/30/19 08:49 Sod 3.375 gm/ Sodium Chloride IVPB 25 mls/hr Q8HR ISAAC Administration Propofol 1,000 mg/ IV Solution 100 mls @ 0 mls/hr 03/27/19 09:10 03/30/19 10:26 IV 30 mcg/kg/min .Q0M ISAAC 15.03 mls/hr Administration Protocol Titrate Diltiazem HCl 125 mg/ Sodium 125 mls @ 5 mls/hr 03/27/19 13:30 03/30/19 08:42 Chloride IV 5 mg/hr .Q24H ISAAC 5 mls/hr Administration 5 MG/HR Daptomycin 500 mg/ Sodium 50 mls @ 100 mls/hr 03/29/19 09:00 03/29/19 08:55 Chloride IVPB 100 mls/hr Q48H ISAAC Administration Protocol Anidulafungin 200 mg/ Sodium 200 mls @ 84 mls/hr 03/30/19 15:00 Chloride IVPB 03/30/19 17:22 ONCE ONE Anidulafungin 100 mg/ Sodium 100 mls @ 84 mls/hr 03/31/19 16:00 Chloride IVPB Q24H ISAAC Magnesium Hydroxide 2,400 mg 03/17/19 07:23 Milk Of Magnesia PO DAILY PRN Constipation Metoprolol Tartrate 25 mg 03/27/19 21:00 03/30/19 08:51 Lopressor PO 25 mg BID ISAAC Administration Miscellaneous Information 1 each 03/18/19 19:01 Magnesium Per Protocol MISCELLANE DAILY PRN Per Protocol Protocol Miscellaneous Information 1 each 03/23/19 13:22 Potassium Per Protocol MISCELLANE DAILY PRN Per Protocol Protocol Nitroglycerin 0.4 mg 03/13/19 06:23 Nitrostat SUBLINGUAL Q5M PRN Chest Pain Ondansetron HCl 4 mg 03/14/19 18:05 03/20/19 09:51 Zofran IVP 4 mg Q6HR PRN Administration Nausea And Vomiting Pantoprazole Sodium 40 mg 03/21/19 09:00 03/30/19 08:50 Protonix IVP 40 mg DAILY ISAAC Administration Senna/Docusate Sodium 1 each 03/17/19 07:23 Senokot-S PO DAILY PRN Constipation Objective - Vital Signs Vital signs: Vital Signs Temp 100 F H 03/30/19 12:00 Pulse 123 H 03/30/19 13:30 Resp 25 H 03/30/19 13:30 BP 112/60 03/30/19 13:30 Pulse Ox 96 03/30/19 13:30 Intake & Output 03/29/19 03/30/19 03/30/19 18:59 06:59 18:59 Intake Total 0444.962 7882.553 782.601 Output Total 4050 2080 1025 Balance -2839.397 -413.447 -242.399 Weight 79.3 kg 80.2 kg Intake: IV 120 220 240 .9 20 220 110 Cardizem 30 Piperacillin-Tazobactam 3 100 100 .375 gm In Sodium Chloride 0.9% 100 ml @ 25 mls/hr IVPB Q8HR ISAAC Rx# :[id number] Intake, IV Titration 611.603 694.553 122.601 Amount DAPTOmycin 500 mg In 100 Sodium Chloride 0.9% 50 ml @ 100 mls/hr IVPB Q48H ISAAC Rx#:[id number] Diltiazem 125 mg In 0 Sodium Chloride 0.9% 100 ml @ 5 MG/HR 5 mls/hr IV .Q24H ISAAC Rx#:[id number] Heparin Sod,Pork in 0.45% 250 206.91 NaCl 25,000 unit In 0.45 % NaCl 1 250ml.bag @ 12 UNITS/KG/HR 8.712 mls/hr IV .Q24H ISAAC Rx#: [id number] Insulin Regular 100 unit 34.079 50.038 15.739 In Sodium Chloride 0.9% 100 ml @ Per Protocol IV .Q0M ISAAC Rx#:[id number] Norepinephrine 8 mg In 119.392 288.256 29.958 Sodium Chloride 0.9% 250 ml @ 0.05 MCG/KG/MIN 7.44 mls/hr IV .Q24H ISAAC Rx#: [id number] Propofol 1,000 mg In 108.132 149.349 76.904 Empty Bag 1 bag @ Titrate IV .Q0M ISAAC Rx#: [id number] Oral 60 Tube Feeding 379 662 300 Other 100 90 60 Output: Gastric Drainage 600 Drainage 400 Left upper quadrant 400 ostomy Urine 2350 1080 625 Stool 1700 400 Other: Voiding Method Indwelling Catheter Indwelling Catheter Indwelling Catheter # Voids 1 ABP, PAP, CO, CI - Last Documented Arterial Blood Pressure 94/42 - Exam -GENERAL: The patient is intubated and sedated HEENT: Pupils are round and equally reacting to light. EOMI. No scleral icterus. No conjunctival pallor. Normocephalic, atraumatic. No pharyngeal erythema. No thyromegaly. CARDIOVASCULAR: S1 and S2 present. No murmurs, rubs, or gallops. PULMONARY: Chest is clear to auscultation, no wheezing or crackles. ABDOMEN: Soft, nontender, nondistended, normoactive bowel sounds. No palpable organomegaly. MUSCULOSKELETAL: No joint swelling or deformity. EXTREMITIES: No cyanosis, clubbing, or pedal edema. NEUROLOGICAL: Gross neurological examination did not reveal any focal deficits. SKIN: No rashes. no petechiae. - Labs CBC & Chem 7: 03/30/19 04:10 03/30/19 04:10 Labs: Abnormal Lab Results - Last 24 Hours (Table) 03/29/19 03/29/19 03/29/19 Range/Units 15:21 17:06 18:11 WBC (3.8-10.6) k/uL RBC (4.30-5.90) m/uL Hgb (13.0-17.5) gm/dL Hct (39.0-53.0) % Neutrophils # (1.3-7.7) k/uL Lymphocytes # (1.0-4.8) k/uL APTT (22.0-30.0) sec ABG pCO2 (35-45) mmHg ABG pO2 (83-108) mmHg ABG HCO3 (21-25) mmol/L ABG O2 Saturation (94-97) % Chloride (98-107) mmol/L Carbon Dioxide (22-30) mmol/L BUN (9-20) mg/dL Creatinine (0.66-1.25) mg/dL Glucose (74-99) mg/dL POC Glucose (mg/dL) 178 H 190 H 197 H (75-99) mg/dL Calcium (8.4-10.2) mg/dL 03/29/19 03/29/19 03/29/19 Range/Units 19:09 19:58 21:12 WBC (3.8-10.6) k/uL RBC (4.30-5.90) m/uL Hgb (13.0-17.5) gm/dL Hct (39.0-53.0) % Neutrophils # (1.3-7.7) k/uL Lymphocytes # (1.0-4.8) k/uL APTT (22.0-30.0) sec ABG pCO2 (35-45) mmHg ABG pO2 (83-108) mmHg ABG HCO3 (21-25) mmol/L ABG O2 Saturation (94-97) % Chloride (98-107) mmol/L Carbon Dioxide (22-30) mmol/L BUN (9-20) mg/dL Creatinine (0.66-1.25) mg/dL Glucose (74-99) mg/dL POC Glucose (mg/dL) 189 H 185 H 181 H (75-99) mg/dL Calcium (8.4-10.2) mg/dL 03/29/19 03/30/19 03/30/19 Range/Units 22:34 00:00 02:06 WBC (3.8-10.6) k/uL RBC (4.30-5.90) m/uL Hgb (13.0-17.5) gm/dL Hct (39.0-53.0) % Neutrophils # (1.3-7.7) k/uL Lymphocytes # (1.0-4.8) k/uL APTT (22.0-30.0) sec ABG pCO2 (35-45) mmHg ABG pO2 (83-108) mmHg ABG HCO3 (21-25) mmol/L ABG O2 Saturation (94-97) % Chloride (98-107) mmol/L Carbon Dioxide (22-30) mmol/L BUN (9-20) mg/dL Creatinine (0.66-1.25) mg/dL Glucose (74-99) mg/dL POC Glucose (mg/dL) 136 H 128 H 140 H (75-99) mg/dL Calcium (8.4-10.2) mg/dL 03/30/19 03/30/19 03/30/19 Range/Units 03:07 04:10 04:10 WBC 24.3 H (3.8-10.6) k/uL RBC 2.92 L (4.30-5.90) m/uL Hgb 8.0 L (13.0-17.5) gm/dL Hct 25.1 L (39.0-53.0) % Neutrophils # 22.8 H (1.3-7.7) k/uL Lymphocytes # 0.4 L (1.0-4.8) k/uL APTT (22.0-30.0) sec ABG pCO2 (35-45) mmHg ABG pO2 (83-108) mmHg ABG HCO3 (21-25) mmol/L ABG O2 Saturation (94-97) % Chloride 117 H (98-107) mmol/L Carbon Dioxide 17 L (22-30) mmol/L BUN 64 H (9-20) mg/dL Creatinine 2.05 H (0.66-1.25) mg/dL Glucose 181 H (74-99) mg/dL POC Glucose (mg/dL) 154 H (75-99) mg/dL Calcium 7.6 L (8.4-10.2) mg/dL 03/30/19 03/30/19 03/30/19 Range/Units 04:10 04:10 05:18 WBC (3.8-10.6) k/uL RBC (4.30-5.90) m/uL Hgb (13.0-17.5) gm/dL Hct (39.0-53.0) % Neutrophils # (1.3-7.7) k/uL Lymphocytes # (1.0-4.8) k/uL APTT 59.8 H (22.0-30.0) sec ABG pCO2 (35-45) mmHg ABG pO2 (83-108) mmHg ABG HCO3 (21-25) mmol/L ABG O2 Saturation (94-97) % Chloride (98-107) mmol/L Carbon Dioxide (22-30) mmol/L BUN (9-20) mg/dL Creatinine (0.66-1.25) mg/dL Glucose (74-99) mg/dL POC Glucose (mg/dL) 187 H 168 H (75-99) mg/dL Calcium (8.4-10.2) mg/dL 03/30/19 03/30/19 03/30/19 Range/Units 06:57 07:39 08:33 WBC (3.8-10.6) k/uL RBC (4.30-5.90) m/uL Hgb (13.0-17.5) gm/dL Hct (39.0-53.0) % Neutrophils # (1.3-7.7) k/uL Lymphocytes # (1.0-4.8) k/uL APTT (22.0-30.0) sec ABG pCO2 28 L (35-45) mmHg ABG pO2 116 H (83-108) mmHg ABG HCO3 18 L (21-25) mmol/L ABG O2 Saturation 98.1 H (94-97) % Chloride (98-107) mmol/L Carbon Dioxide (22-30) mmol/L BUN (9-20) mg/dL Creatinine (0.66-1.25) mg/dL Glucose (74-99) mg/dL POC Glucose (mg/dL) 136 H 127 H (75-99) mg/dL Calcium (8.4-10.2) mg/dL 03/30/19 03/30/19 03/30/19 Range/Units 08:56 09:54 11:01 WBC (3.8-10.6) k/uL RBC (4.30-5.90) m/uL Hgb (13.0-17.5) gm/dL Hct (39.0-53.0) % Neutrophils # (1.3-7.7) k/uL Lymphocytes # (1.0-4.8) k/uL APTT (22.0-30.0) sec ABG pCO2 (35-45) mmHg ABG pO2 (83-108) mmHg ABG HCO3 (21-25) mmol/L ABG O2 Saturation (94-97) % Chloride (98-107) mmol/L Carbon Dioxide (22-30) mmol/L BUN (9-20) mg/dL Creatinine (0.66-1.25) mg/dL Glucose (74-99) mg/dL POC Glucose (mg/dL) 138 H 165 H 173 H (75-99) mg/dL Calcium (8.4-10.2) mg/dL 03/30/19 03/30/19 03/30/19 Range/Units 11:55 13:05 14:05 WBC (3.8-10.6) k/uL RBC (4.30-5.90) m/uL Hgb (13.0-17.5) gm/dL Hct (39.0-53.0) % Neutrophils # (1.3-7.7) k/uL Lymphocytes # (1.0-4.8) k/uL APTT (22.0-30.0) sec ABG pCO2 (35-45) mmHg ABG pO2 (83-108) mmHg ABG HCO3 (21-25) mmol/L ABG O2 Saturation (94-97) % Chloride (98-107) mmol/L Carbon Dioxide (22-30) mmol/L BUN (9-20) mg/dL Creatinine (0.66-1.25) mg/dL Glucose (74-99) mg/dL POC Glucose (mg/dL) 157 H 128 H 133 H (75-99) mg/dL Calcium (8.4-10.2) mg/dL Microbiology - Last 24 Hours (Table) 03/28/19 13:00 Gram Stain - Final Sputum Sputum Culture - Final Mayelin albicans Klebsiella oxytoca 03/28/19 13:05 Blood Culture - Preliminary Blood No Growth after 24 hours Assessment and Plan Assessment: Septic shock patient is on pressor support and the sepsis secondary to ischemic bowel. Patient started having fever again repeat blood cultures were obtained and daptomycin was started to cover gram-positive organisms patient is already on Zosyn. Patient remains intubated no syncope in changes in his clinical condition neurology evaluated the patient as well. Patient does have pulmonary edema and is in atrial fibrillation. CAT scan of the head is concerning for subacute hematoma because of which neurology will evaluate the patient. EEG will be obtained -Coronary artery disease severe multivessel 33 vessel disease patient had dyspnea for 40-45% with mitral regurgitation, patient is bit volume overloaded receiving Lasix at this time IV fluids were cut down to 20 mL per hour patient is on antiplatelet statin for this -Proximal A. fib presently sinus rhythm with PVCs and patient is on amiodarone oral which will be continued -Ventilator dependent respiratory failure secondary to sepsis management as per pulmonology -Severe pulmonary hypertension -Hyperlipidemia -Type 2 diabetes mellitus continue with present regimen -Chronic kidney disease stage III with some acute kidney injury from sepsis and acute tubular necrosis chronic kidney disease secondary to diabetic nephropathy Acute renal failure: Secondary to acute tubular necrosis and prerenal azotemia which is improving -COPD with acute exacerbation -Polycystic kidney disease -Hypertension patient is presently hypotensive and is in shock -History of bladder cancer with TURP in the past Plan: Patient's overall prognosis is poor his clinical condition is guarded now. Patient's CODE STATUS is DO NOT RESUSCITATE still believe patient is more for appropriate for hospice and comfort care as in spite of aggressive measures patient did not have any significant improvement in his overall clinical condition appears to be getting worse at this time.
[2019-03-30 15:12] LABS: Glucose,Whole Blood 141 mg/dL (75-99)
[2019-03-30 15:51] LABS: Glucose,Whole Blood 157 mg/dL (75-99)
[2019-03-30 16:50] LABS: Glucose,Whole Blood 152 mg/dL (75-99)
[2019-03-30 17:59] LABS: Glucose,Whole Blood 129 mg/dL (75-99)
[2019-03-30 20:20] LABS: Glucose,Whole Blood 179 mg/dL (75-99)
[2019-03-30] MEDS: SODIUM CHLORIDE 0.9% 1,000 ML IV SCH (20:30)
[2019-03-30 20:59] LABS: Glucose,Whole Blood 204 mg/dL (75-99)
[2019-03-30 22:06] LABS: Glucose,Whole Blood 189 mg/dL (75-99)
[2019-03-30 23:04] LABS: Glucose,Whole Blood 161 mg/dL (75-99)
--- NOTE | 2019-03-30 23:50 | PN ---
PROGRESS NOTE DATE OF SERVICE: 03/30/2019. REASON FOR FOLLOWUP: Secondary peritonitis with new fever. INTERVAL HISTORY: The patient did have a low-grade fever of 100 Fahrenheit around noon today. The patient is currently intubated on the vent. Hemodynamically stable. The output in his ileostomy bag and tolerating his tube feeds. Currently on the vent and unable to provide any history. PHYSICAL EXAMINATION: Blood pressure is 115/54 with a pulse of 92, temperature 98. He is 94% on 40% FiO2. General description is an elderly male lying in bed in no distress. Respiratory system: Unlabored breathing, clear to auscultation anteriorly. Heart S1, S2. Regular rate and rhythm. ABDOMEN: Soft slightly distended. EXTREMITIES: No edema of the feet. LABS: Hemoglobin 8.9, white count 4.3, BUN of 64, creatinine 2.05. DIAGNOSTIC IMPRESSION AND PLAN: Patient with sepsis in this patient who did have secondary peritonitis from perforated ischemic small bowel, status post laparotomy and diverting jejunostomy. The patient is currently covered with Zosyn and daptomycin now with new fever and worse persistent elevated white count. We will add Eraxis. Diflucan could not be arranged as the patient is on amiodarone and we will monitor his white count closely. Continue supportive care. MMODL / IJN: [id number] /
[2019-03-31 00:06] LABS: Glucose,Whole Blood 143 mg/dL (75-99)
[2019-03-31 01:06] LABS: Glucose,Whole Blood 124 mg/dL (75-99)
[2019-03-31 02:03] LABS: Glucose,Whole Blood 121 mg/dL (75-99)
[2019-03-31 03:05] LABS: Glucose,Whole Blood 136 mg/dL (75-99)
[2019-03-31] MEDS: PROPOFOL 1,000 MG in EMPTY BAG 1 BAG IV SCH ×3 (04:06→15:46)
[2019-03-31 04:07] LABS: Glucose,Whole Blood 163 mg/dL (75-99)
[2019-03-31 04:27] LABS: Basophils % (A) 0 %; Eosinophils # (A) 0.2 k/uL (0-0.7); Eosinophils % (A) 1 %; HCT 26.4 % (39.0-53.0); HGB 8.3 gm/dL (13.0-17.5); Hypochromasia Slight; Lymphocytes # (A) 0.6 k/uL (1.0-4.8); Lymphocytes % (A) 3 %; MCH 27.2 pg (25.0-35.0); MCHC 31.6 g/dL (31.0-37.0); MCV 86.1 fL (80.0-100.0); Mean Platelet Volume 9.1; Monocytes # (A) 0.7 k/uL (0-1.0); Monocytes % (A) 3 %; Neutrophils # (A) 20.6 k/uL (1.3-7.7); Neutrophils % (A) 92 %; Platelet Count 421 k/uL (150-450); RBC 3.06 m/uL (4.30-5.90); RDW 15.6 % (11.5-15.5); WBC 22.4 k/uL (3.8-10.6)
[2019-03-31] MEDS: HYDROmorphone 1 MG/ML 1 ML SYRINGE IVP PRN ×4 (04:29→15:19)
[2019-03-31 05:11] LABS: Calcium 7.8 mg/dL (8.4-10.2); Potassium 4.3 mmol/L (3.5-5.1)
[2019-03-31 05:12] LABS: Glucose,Whole Blood 172 mg/dL (75-99)
[2019-03-31] MEDS: NOREPINEPHRINE 8 MG in SODIUM CHLORIDE 0.9% 250 ML IV SCH ×2 (05:13→15:23)
[2019-03-31 06:07] LABS: Glucose,Whole Blood 181 mg/dL (75-99)
[2019-03-31 06:55] LABS: Glucose,Whole Blood 159 mg/dL (75-99)
--- NOTE | 2019-03-31 07:31 | XR ---
EXAMINATION TYPE: XR chest 1V portable DATE OF EXAM: 03/31/2019 COMPARISON: 03/30/2019 HISTORY: Shortness breath TECHNIQUE: Single frontal view of the chest is obtained. FINDINGS: An endotracheal tube, orogastric tube, and left internal jugular central venous catheter a re all stable in appearance. Background Chronic emphysematous change with bibasilar opacities remains present. Upper lungs remain clear without pneumothorax. Cardiac silhouette size stable and mildly en larged with atherosclerotic aorta. Scoliotic curvature centered at thoracolumbar junction redemonstra simone. IMPRESSION: 1. Stable pleural-parenchymal findings most typical of CHF. Correlate clinically to exclude underlyin g pneumonia.
[2019-03-31 07:56] LABS: ABG Base Excess -6.8 mmol/L; ABG HCO3 18 mmol/L (21-25); ABG Oxygen Saturation 97.9 % (94-97); ABG PCO2 31 mmHg (35-45); ABG PH 7.38 (7.35-7.45); ABG PO2 109 mmHg (83-108); ABG TCO2 19 mmol/L (19-24); Allen Test Performed? Yes
[2019-03-31 08:19] LABS: Glucose,Whole Blood 145 mg/dL (75-99)
[2019-03-31] MEDS: PANTOPRAZOLE 40 MG/10 ML VIAL IVP SCH (08:19)
[2019-03-31] MEDS: PIPERACILLIN-TAZOBACTAM 3.375 GM in SODIUM CHLORIDE 0.9% 100 ML IVPB SCH ×3 (08:19→23:27)
[2019-03-31] MEDS: CHLORHEXIDINE GLUCONATE 15 ML CUP MUCOUS MEM SCH ×2 (08:19→20:58)
[2019-03-31] MEDS: FENOFIBRATE 160 MG TAB PO SCH (08:20)
[2019-03-31] MEDS: METOPROLOL TARTRATE 25 MG TAB PO SCH ×2 (08:20→20:58)
[2019-03-31] MEDS: FUROSEMIDE 10 MG/ML 4 ML VIAL IV SCH (08:20)
[2019-03-31] MEDS: ACETAMINOPHEN TAB 325 MG TAB PO PRN ×2 (08:20→15:19)
[2019-03-31] MEDS: AMIODARONE 200 MG TAB PO SCH ×3 (08:20→20:58)
[2019-03-31] MEDS: ASPIRIN 81 MG PO SCH (08:20)
[2019-03-31] MEDS: DAPTOmycin 500 MG in SODIUM CHLORIDE 0.9% 50 ML IVPB SCH (08:49)
[2019-03-31] MEDS: IPRATROPIUM-ALBUTEROL 3 ML NEB INHALATION SCH ×4 (08:53→19:27)
[2019-03-31 09:00] LABS: Glucose,Whole Blood 150 mg/dL (75-99)
[2019-03-31 10:10] LABS: Glucose,Whole Blood 156 mg/dL (75-99)
[2019-03-31 11:08] LABS: Glucose,Whole Blood 152 mg/dL (75-99)
[2019-03-31 12:04] LABS: Glucose,Whole Blood 152 mg/dL (75-99)
--- NOTE | 2019-03-31 12:06 | P.PN ---
Subjective Progress Note Date: 03/31/19 Principal diagnosis: acute hypoxic respiratory failure, multifactorial on 03/24/2019 the patient is postop day #3. The patient underwent bowel resection for an acute ischemic bowel and the patient underwent small bowel resection, ileal resection, jejunal resection with diverting jejunostomy. A breeze spontaneous breathing trial was given to him yesterday. The patient feels he became tachypneic and tachycardic and restless. This was aborted. The same will be done today. I feel that he is essentially stable. He remains on a mechanical ventilator on assist control mode at the rate of 12 with a tidal volume of 500 and FiO2 of 40% with a PEEP of 5. Chest x-ray showing pulmonary vascular congestion/small effusion the lungs left more than right. ET tube is in a good location. He is a left IJ triple lumen catheter in place. The patient was given a dose of Lasix yesterday. He did produce some urine output. His creatinine is down to 1.8. The neck fluid balance is +600 mL over the past 24 hours. The creatinine is improving. He is on and off in atrial fibrillati on. After being taken off the amiodarone drip, he was placed on oral amiodarone and this morning is back into atrial fibrillation with a controlled rate. His heart rate goes sometimes in the low 100s. The patient was seen by cardiology. Metoprolol was added. His amiodarone dose was also increased up to 200 mg 3 times a day. He is on IV heparin. He is on norepinephrine infusion which is running at a low backup rate of 0.09 g per KG per minute. He is receiving TPN for nutritional support. He is afebrile for now. All of the cultures of been negative thus far..Note that the patient has COPD,, his FEV1 is normal to 52% of predicted, he has history of diabetes and history of bladder cancer and he has history of stage III kidney disease with polycystic kidney disease disorder. Reevaluated today on 03/25/2019, patient remains on mechanical ventilation, intubated, sedated, ventilator settings are assist control rate of 12, tidal volume is 500 FiO2 40% PEEP of 5. Patient remains on insulin drip, norepinephrine drip at 0.07 mcg/kg/m, remains on propofol which I have discontinued, he is on heparin drip and on TPN. Patient is postoperative day #4. Chest x-ray showed minimal hazy densities at the bases, most likely atelectasis and possibly a small pleural effusion noted. Labs showed the PEEP cigar 20.8 hemoglobin 8.9 ABG showed a pO2 of 98 pCO2 of 40 pH of 7.40. Renal functioning is about the same, creatinine is 1.86. Patient remains on TPN. Patient is not responsive to any stimuli, hence I have discontinued his propofol, and I have switched him to a pressure support and CPAP with a pressure support of 12, previous trial of weaning have failed by Dr. Aguiar, patient developed significant tachypnea and tachycardia with CPAP, however I will try adding pressure support of 12, and we will closely monitor for potential extubation if his mental status improves. Reevaluated today on 03/26/2019, patient remains in the intensive care unit, on mechanical ventilation. Tidal volume is 500 assist control rate of 12 FiO2 is 40% and PEEP is 5. Remains on levo fed at 0.05 mcg/kg/m, still requiring propofol, insulin drip, and he is on heparin drip. Mental status is extremely poor, patient has been off propofol now for the last 2 hours, and does not seem to be waking up to follow any instructions at this point yet. Yesterday he was off sedation for 4 hours, and he was getting extremely agitated, had to be placed back on assist control mode of mechanical ventilation, and placed back on sedation. We plan to continue to do so today. Family is at bedside, however I'm a bit concerned about his mental status, even off sedation the patient does not seem to respond to any stimuli including deep painful stimuli. I would recommend a CT of the brain, I would also recommend a neurological consultation on this patient.labs today werelabs today were all reviewed.WBC count is 19.9 hemoglobin is 8.5. ABG showed a pO2 of 102 pCO2 of 32 pH of 7.45.renal profile is a bit improving BUN is 66 creatinine is 1.85. Family is at bedside, and updated on his condition. CT of the brain showed cerebral atrophy, age-related, chronic small vessel ischemia, difficult to rule out subacute ischemia. His basal ganglia showed asymmetry, hence MRI was recommended by the radiologist. Will leave that decision to the neurologist whom I will consult today.chest x- ray showed overall stable findings, chronic emphysematous changes, small pleural effusions, and minimal bibasilar atelectasis. Reevaluated today on 03/27/2019, remains intubated and mechanically ventilated. His ventilator settings are basically the same, patient is on tidal volume of 500 assist control rate of 12 FiO2 of 40% and PEEP of 5. ABG this morning showed a pO2 of 73 pCO2 of 29 pH of 7.45. Chest x-ray is showing evidence of interstitial edema. Patient is having intermittent episodes of atrial f ibrillation with RVR, and his beta luisa dose was increased by cardiology. Remains on insulin drip, propofol drip, remains on antibiotics, remains on enteral feeding and on TPN. Will likely discontinue TPN once the enteral feeding is up to goal. Mental status owens remains poor, in the last few days I have been trying daily to hold sedation and assessment of status, however his mental status is extremely poor, and his CT of the brain was done by neurology, his basal ganglia showed asymmetry, and radiologist suggested possible MRI. However that will be decided upon by neurology on the case. Otherwise his CT of the brain is unremarkable. There is age-related cortical atrophy. Considering his chest x-ray showing evidence of slight interstitial edema, I have recommended a dose of Lasix 40 mg IV push to be given today. Patient remains hemodynamically stable in spite of his atrial fibrillation and RVR, and considering his cardiac findings I would recommend no plans to hold sedation today, place him back on propofol, and continue supportive care measures. Considering the overall picture, May have to seriously considered tracheostomy on this patient sometime next week. I doubt if we would be able to successfully wean the patient at this time. Reevaluated today on 03/28/2019, patient remains in the ICU, intubated, and mechanically ventilated. His ventilator settings are assist control rate of 16, volume is 500 FiO2 40% PEEP is 5. Patient is still experiencing intermittent episodes of atrial fibrillation and RVR, required placement on Cardizem drip, his beta luisa dose was increased, patient is also now requiring norepinephrine at 0.22 mcg/kg/m. Remains on propofol which I will increase to 50 mcg/kg/m. Patient remains tachypnea, tachycardic, in atrial fibrillation with RVR at times. Since Cardizem was started, the rate seems to be better controlled. But he is now hypotensive requiring norepinephrine. Chest x-ray is showing evidence of congestive heart failure and bilateral effusions with atelectasis. Pneumonia is not entirely ruled out but felt to be less likely at this point. Family is at bedside, and they were updated on his condition including his neurological condition which seems to be extremely poor and the patient does not respond to any painful stimuli. Updated on his cardiac condition, pulmonary condition, GI condition, and his renal issues. Clearly the patient has a multi organ system failure, and his prognosis is becoming poorer a nd poorer. Today I even touch bases with the family regarding tracheostomy if the patient doesn't improve in the next few days, or possibly consider comfort care measures. The family seems to be inclined to proceed with comfort care measures if we get to that point of addressing tracheostomy. In the meantime the CODE STATUS was changed to DO NOT RESUSCITATE CODE STATUS. WBC count is up to 30.9 hemoglobin is 8.6. ABG showed a pO2 of 68 pCO2 of 30 pH of 7.43. BUN is up to 72 creatinine is up to 2.41. Worsening leukocytosis was noted today, patient remains on Zosyn which I started yesterday. I will recommend the blood cultures to be done. And sputum cultures reevaluated. May even have to consider CT of the abdomen and pelvis for evaluation of possible abdominal abscess. However the patient is an extremely poor surgical candidate at this point. Reevaluated today on 03/29/2019, remains intubated, mechanically ventilated, ventilator settings are unchanged, he is now on tidal volume of 500 assist control rate of 16 FiO2 40% and PEEP of 5. Patient is now in sinus rhythm, he converted to sinus rhythm yesterday about 1 PM. Remains on multiple drips including propofol, levo fed at 0. one 4 mcg/kg/m, he is also on heparin drip, insulin drip, and remains on antibiotics/Zosyn and daptomycin was added as per infectious disease on the case. Patient is now on propofol which I plan to taper down and reassess mental status again, however his mental status has been extremely poor over the last 5 days. Chest x-ray is showing improvement in his pulmonary edema. Renal status is abnormal but remains basically about the same. WBC count is down to 24.9 hemoglobin is 8.3. ABG showed a pO2 of 102 pCO2 of 30 0 pH of 7.41. BUN is 69 creatinine 2.32. Patient remains on TPN and enteral feeding. Family is at bedside, and updated on his condition. EEG is suggestive of generalized cerebral dysfunction consistent with toxic metabolic encephalopathy. No seizure activity was seen Reevaluated today on 03/30/2019, remains intubated, on mechanical ventilation, his ventilator settings are assist control rate of 16, tidal volume is 500, FiO2 is 40%, PEEP is 5. Patient remains on multiple drips, he went into atrial fibrillation with RVR today, and now he is on Cardizem drip at 5 mg per hour. He is also on norepinephrine at 10 mcg/m, patient is also on propofol, and on insulin drip. Neurologically, the patient is about the same, no major change noted in the last 24 hours, continues to have no responses whether he is on or off propofol. Patient does not respond to any painful or verbal stimuli. Continues to breathe intermittently over the ventilator. Pupils are not clearly reacting. Oculocephalics absent, corneal reflexes present. Continues to have leukocytosis with WBC count of 24.3 hemoglobin is 8. ABG this morning showed a pO2 of 116 pCO2 of 28 pH of 7.43. BUN is 64 creatinine 2.05, basically about the same in the last few days. Chest x-ray continues to show cardiomegaly and small bilateral pleural effusions with associated bibasilar atelectasis or in filtrates. Updated his family on his condition, and most likely if no improvement in the next couple of days, family is willing to consider comfort care measures. Reevaluated today on 03/31/2019, patient remains in the ICU, intubated and mechanically ventilated. His ventilator settings are assist control rate of 16 tidal volume is 500 FiO2 40% and PEEP of 5. Patient remains on a small dose of norepinephrine at 0.02 mcg/kg/m, he is off Cardizem since last night, patient converted to a sinus rhythm. He remains on heparin, and remains on insulin at 2 units per hour, remains on propofol at 30 mcg/kg/m. Chest x-ray is showing evidence of mild interstitial edema/congestive heart failure. However the patient received Lasix earlier today, and he seems to be responding well to diuresis. His leukocytosis is improving WBC count is 22.4 hemoglobin is 8.3 ABG showed a pO2 of 109 pCO2 of 31 pH of 7.38 hence will cut down his FiO2 to 35% basic metabolic profile is relatively normal however his bicarb remains low at 16, and BUN is 61 creatinine 2.14 basically the same over the last 1 week. Sputum came back positive for Klebsiella oxytoca, and his antibiotics were to be addressed by infectious disease on the case, he is presently on daptomycin, Zosyn, and Eraxis. His overall neurological status is about the same and not much improvement noted over the last whole week. Objective - Vital Signs Vital signs: Vital Signs Temp 98.2 F 03/31/19 04:00 Pulse 82 03/31/19 09:12 Resp 22 03/31/19 07:00 BP 106/51 03/31/19 07:00 Pulse Ox 97 03/31/19 07:00 Intake & Output 03/30/19 03/31/19 03/31/19 18:59 06:59 18:59 Intake Total 2330.847 4868.938 137.439 Output Total 2125 2165 Balance -362.335 -499.062 137.439 Weight 75.6 kg Intake: IV 675 350 .9 160 245 Anidulafungin 200 mg In 260 Sodium Chloride 0.9% 200 ml @ 84 mls/hr IVPB ONCE ONE Rx#:[id number] Cardizem 55 5 Piperacillin-Tazobactam 3 200 100 .375 gm In Sodium Chloride 0.9% 100 ml @ 25 mls/hr IVPB Q8HR [facility] Rx# :[id number] Intake, IV Titration 422.665 678.938 137.439 Amount Diltiazem 125 mg In 0 76.917 Sodium Chloride 0.9% 100 ml @ 5 MG/HR 5 mls/hr IV .Q24H [facility] Rx#:[id number] Heparin Sod,Pork in 0.45% 250 NaCl 25,000 unit In 0.45 % NaCl 1 250ml.bag @ 12 UNITS/KG/HR 8.712 mls/hr IV .Q24H [facility] Rx#: [id number] Insulin Regular 100 unit 25.637 23.911 In Sodium Chloride 0.9% 100 ml @ Per Protocol IV .Q0M [facility] Rx#:[id number] Norepinephrine 8 mg In 220.124 228.110 43.251 Sodium Chloride 0.9% 250 ml @ 0.05 MCG/KG/MIN 7.44 mls/hr IV .Q24H [facility] Rx#: [id number] Propofol 1,000 mg In 176.904 100 94.188 Empty Bag 1 bag @ Titrate IV .Q0M [facility] Rx#: [id number] Oral 60 Tube Feeding 515 547 Other 90 90 Output: Gastric Drainage 1050 Drainage 1000 Left upper quadrant 1000 ostomy Urine 1125 1115 Other: Voiding Method Indwelling Catheter Indwelling Catheter # Voids 1 ABP, PAP, CO, CI - Last Documented Arterial Blood Pressure 122/39 - Exam Physical Exam: Revealed a 73-year-old white male intubated on mechanical ventilation, on propofol. Head: Atraumatic, normocephalic. Endotracheal tube and orogastric tube are intact. HEENT:[Neck is supple.] [No neck masses.] [No thyromegaly.] [No JVD.] Pupils nonreactive to light. Chest: [Symmetrical chest expansion, crackles at the bases bilaterally. Some wheezing. Cardiac Exam: Regular rate and rhythm. [Normal S1 and S2, no S3 gallop, no murmur.] Abdomen: [ reveals positive bowel sounds, jejunostomy site is viable , func tional abdomen is nontender. Extremities: [No clubbing, no edema, no cyanosis.] Neurological Exam: Comatose, pupils not clearly reacting, absent oculocephalics, present corneal reflexes, Psychiatric: Cannot be assessed Skin: No rashes. - Labs CBC & Chem 7: 03/31/19 04:10 03/31/19 04:10 Labs: Abnormal Lab Results - Last 24 Hours (Table) 03/30/19 03/30/19 03/30/19 Range/Units 11:55 13:05 14:05 WBC (3.8-10.6) k/uL RBC (4.30-5.90) m/uL Hgb (13.0-17.5) gm/dL Hct (39.0-53.0) % RDW (11.5-15.5) % Neutrophils # (1.3-7.7) k/uL Lymphocytes # (1.0-4.8) k/uL APTT (22.0-30.0) sec ABG pCO2 (35-45) mmHg ABG pO2 (83-108) mmHg ABG HCO3 (21-25) mmol/L ABG O2 Saturation (94-97) % Sodium (137-145) mmol/L Chloride (98-107) mmol/L Carbon Dioxide (22-30) mmol/L BUN (9-20) mg/dL Creatinine (0.66-1.25) mg/dL Glucose (74-99) mg/dL POC Glucose (mg/dL) 157 H 128 H 133 H (75-99) mg/dL Calcium (8.4-10.2) mg/dL 03/30/19 03/30/19 03/30/19 Range/Units 15:10 15:50 16:49 WBC (3.8-10.6) k/uL RBC (4.30-5.90) m/uL Hgb (13.0-17.5) gm/dL Hct (39.0-53.0) % RDW (11.5-15.5) % Neutrophils # (1.3-7.7) k/uL Lymphocytes # (1.0-4.8) k/uL APTT (22.0-30.0) sec ABG pCO2 (35-45) mmHg ABG pO2 (83-108) mmHg ABG HCO3 (21-25) mmol/L ABG O2 Saturation (94-97) % Sodium (137-145) mmol/L Chloride (98-107) mmol/L Carbon Dioxide (22-30) mmol/L BUN (9-20) mg/dL Creatinine (0.66-1.25) mg/dL Glucose (74-99) mg/dL POC Glucose (mg/dL) 141 H 157 H 152 H (75-99) mg/dL Calcium (8.4-10.2) mg/dL 03/30/19 03/30/19 03/30/19 Range/Units 17:57 20:19 20:58 WBC (3.8-10.6) k/uL RBC (4.30-5.90) m/uL Hgb (13.0-17.5) gm/dL Hct (39.0-53.0) % RDW (11.5-15.5) % Neutrophils # (1.3-7.7) k/uL Lymphocytes # (1.0-4.8) k/uL APTT (22.0-30.0) sec ABG pCO2 (35-45) mmHg ABG pO2 (83-108) mmHg ABG HCO3 (21-25) mmol/L ABG O2 Saturation (94-97) % Sodium (137-145) mmol/L Chloride (98-107) mmol/L Carbon Dioxide (22-30) mmol/L BUN (9-20) mg/dL Creatinine (0.66-1.25) mg/dL Glucose (74-99) mg/dL POC Glucose (mg/dL) 129 H 179 H 204 H (75-99) mg/dL Calcium (8.4-10.2) mg/dL 03/30/19 03/30/19 03/31/19 Range/Units 22:05 23:03 00:05 WBC (3.8-10.6) k/uL RBC (4.30-5.90) m/uL Hgb (13.0-17.5) gm/dL Hct (39.0-53.0) % RDW (11.5-15.5) % Neutrophils # (1.3-7.7) k/uL Lymphocytes # (1.0-4.8) k/uL APTT (22.0-30.0) sec ABG pCO2 (35-45) mmHg ABG pO2 (83-108) mmHg ABG HCO3 (21-25) mmol/L ABG O2 Saturation (94-97) % Sodium (137-145) mmol/L Chloride (98-107) mmol/L Carbon Dioxide (22-30) mmol/L BUN (9-20) mg/dL Creatinine (0.66-1.25) mg/dL Glucose (74-99) mg/dL POC Glucose (mg/dL) 189 H 161 H 143 H (75-99) mg/dL Calcium (8.4-10.2) mg/dL 03/31/19 03/31/19 03/31/19 Range/Units 01:05 02:01 03:03 WBC (3.8-10.6) k/uL RBC (4.30-5.90) m/uL Hgb (13.0-17.5) gm/dL Hct (39.0-53.0) % RDW (11.5-15.5) % Neutrophils # (1.3-7.7) k/uL Lymphocytes # (1.0-4.8) k/uL APTT (22.0-30.0) sec ABG pCO2 (35-45) mmHg ABG pO2 (83-108) mmHg ABG HCO3 (21-25) mmol/L ABG O2 Saturation (94-97) % Sodium (137-145) mmol/L Chloride (98-107) mmol/L Carbon Dioxide (22-30) mmol/L BUN (9-20) mg/dL Creatinine (0.66-1.25) mg/dL Glucose (74-99) mg/dL POC Glucose (mg/dL) 124 H 121 H 136 H (75-99) mg/dL Calcium (8.4-10.2) mg/dL 03/31/19 03/31/19 03/31/19 Range/Units 04:05 04:10 04:10 WBC 22.4 H (3.8-10.6) k/uL RBC 3.06 L (4.30-5.90) m/uL Hgb 8.3 L (13.0-17.5) gm/dL Hct 26.4 L (39.0-53.0) % RDW 15.6 H (11.5-15.5) % Neutrophils # 20.6 H (1.3-7.7) k/uL Lymphocytes # 0.6 L (1.0-4.8) k/uL APTT 73.0 H (22.0-30.0) sec ABG pCO2 (35-45) mmHg ABG pO2 (83-108) mmHg ABG HCO3 (21-25) mmol/L ABG O2 Saturation (94-97) % Sodium (137-145) mmol/L Chloride (98-107) mmol/L Carbon Dioxide (22-30) mmol/L BUN (9-20) mg/dL Creatinine (0.66-1.25) mg/dL Glucose (74-99) mg/dL POC Glucose (mg/dL) 163 H (75-99) mg/dL Calcium (8.4-10.2) mg/dL 03/31/19 03/31/19 03/31/19 Range/Units 04:10 05:11 06:05 WBC (3.8-10.6) k/uL RBC (4.30-5.90) m/uL Hgb (13.0-17.5) gm/dL Hct (39.0-53.0) % RDW (11.5-15.5) % Neutrophils # (1.3-7.7) k/uL Lymphocytes # (1.0-4.8) k/uL APTT (22.0-30.0) sec ABG pCO2 (35-45) mmHg ABG pO2 (83-108) mmHg ABG HCO3 (21-25) mmol/L ABG O2 Saturation (94-97) % Sodium 146 H (137-145) mmol/L Chloride 119 H (98-107) mmol/L Carbon Dioxide 16 L (22-30) mmol/L BUN 61 H (9-20) mg/dL Creatinine 2.14 H (0.66-1.25) mg/dL Glucose 159 H (74-99) mg/dL POC Glucose (mg/dL) 172 H 181 H (75-99) mg/dL Calcium 7.8 L (8.4-10.2) mg/dL 03/31/19 03/31/19 03/31/19 Range/Units 06:54 07:51 08:17 WBC (3.8-10.6) k/uL RBC (4.30-5.90) m/uL Hgb (13.0-17.5) gm/dL Hct (39.0-53.0) % RDW (11.5-15.5) % Neutrophils # (1.3-7.7) k/uL Lymphocytes # (1.0-4.8) k/uL APTT (22.0-30.0) sec ABG pCO2 31 L (35-45) mmHg ABG pO2 109 H (83-108) mmHg ABG HCO3 18 L (21-25) mmol/L ABG O2 Saturation 97.9 H (94-97) % Sodium (137-145) mmol/L Chloride (98-107) mmol/L Carbon Dioxide (22-30) mmol/L BUN (9-20) mg/dL Creatinine (0.66-1.25) mg/dL Glucose (74-99) mg/dL POC Glucose (mg/dL) 159 H 145 H (75-99) mg/dL Calcium (8.4-10.2) mg/dL 1203/31/19 03/31/19 Range/Units 08:59 10:08 11:06 WBC (3.8-10.6) k/uL RBC (4.30-5.90) m/uL Hgb (13.0-17.5) gm/dL Hct (39.0-53.0) % RDW (11.5-15.5) % Neutrophils # (1.3-7.7) k/uL Lymphocytes # (1.0-4.8) k/uL APTT (22.0-30.0) sec ABG pCO2 (35-45) mmHg ABG pO2 (83-108) mmHg ABG HCO3 (21-25) mmol/L ABG O2 Saturation (94-97) % Sodium (137-145) mmol/L Chloride (98-107) mmol/L Carbon Dioxide (22-30) mmol/L BUN (9-20) mg/dL Creatinine (0.66-1.25) mg/dL Glucose (74-99) mg/dL POC Glucose (mg/dL) 150 H 156 H 152 H (75-99) mg/dL Calcium (8.4-10.2) mg/dL Microbiology - Last 24 Hours (Table) 03/28/19 13:05 Blood Culture - Preliminary Blood No Growth after 48 hours 03/28/19 13:00 Gram Stain - Final Sputum Sputum Culture - Final Mayelin albicans Klebsiella oxytoca Assessment and Plan Assessment: Impression: Severe multivessel coronary artery disease, post non-ST elevation myocardial infarction. No surgical plans at present Ischemic cardiomyopathy and LV dysfunction ejection fraction of 35%. Associated with intermittent episodes of pulmonary edema, improving with diuretics. Severe pulmonary hypertension Moderate severe mitral regurgitation Acute ischemic small bowel requiring exploratory laparotomy, and ileal/a jejunostomy resection and diverting jejunostomy. Type 2 diabetes, currently on insulin as per protocol. . Polycystic kidney disease. Chronic obstructive pulmonary disease and chronic smoking history. Chronic stage III kidney failure with acute on chronic kidney disease Benign essential hypertension. Severe pulmonary hypertension and moderate to severe mitral regurgitation postoperative hypoxic respiratory failure, multifactorial, secondary to ischemic cardiomyopathy, LV dysfunction, severe pulmonary hypertension, underlying COPD, and moderate to severe mitral regurgitation. This is not expected. And possible nosocomial pneumonia. Paroxysmal atrial fibrillation with RVR, being addressed by cardiology. Presently in normal sinus rhythm. Patient converted yesterday. Acute pulmonary edema secondary to systolic congestive heart failure. Severe metabolic encephalopathy with extremely poor mental status. EEG is suggestive of severe toxic metabolic encephalopathy. Suspected nosocomial pneumonia, sputum is positive for Klebsiella oxytoca. Sensitive to most antibiotics except ampicillin and cefazolin. Patient is presently on Zosyn and daptomycin. Recommendation: Continue ventilatory support, Resume sedation as per protocol. Daily interruption of sedation and assessment of mental status. We will address his mental status again today on a lower dose of propofol. Hemodynamic support, continue norepinephrine. Presently on 0.02 mcg/kg/m. Off Cardizem. Continue diuretics. Continue empiric antibiotics. Continue Zosyn and daptomycin. , And Eraxis was added. As per infectious disease on the case. Continue cardiac meds Daily monitoring of electrolytes and renal profile. Continue daily chest x-rays. Continue GI and DVT prophylaxis. Family has been updated on his condition on a daily basis, and they seem to be more inclined to consider terminal weaning and comfort care measures if no improvement in the next 24-48 hours. Critical care time is 35 minutes Time with Patient: Greater than 30
[2019-03-31] MEDS: DILTIAZEM 125 MG in SODIUM CHLORIDE 0.9% 100 ML IV SCH (13:20)
[2019-03-31 13:59] LABS: Glucose,Whole Blood 156 mg/dL (75-99)
[2019-03-31] MEDS: HEPARIN SOD,PORK IN 0.45% NACL 25,000 UNIT in 0.45% NACL 1 250ML.BAG IV SCH (14:53)
--- NOTE | 2019-03-31 15:12 | PN ---
PROGRESS NOTE Mr. Camacho's condition is about the same. He is in sinus rhythm, however, which converted yesterday. Hemodynamically stable, making urine, but overall clinical condition appears to be unchanged. His neurological status is unclear. Vitals are stable. S1-S2 heard normally. Short systolic murmur noted. Lungs reveal improved air entry. Abdomen and lower extremity exam unchanged. Prognosis remains poor. MMODL / IJN: [id number] /
--- NOTE | 2019-03-31 15:18 | P.PN ---
Subjective Patient is status post laparotomy for a small wall ischemia consider necrosis. The patient the surgical risk is very high as it wasn't emergent surgery patient underwent surgery and patient is presently intubated patient in shock broad- spectrum antibiotics patient on propofol and norepinephrine. Patient was having a low-grade temperatures and patient is presently receiving TPN for nutritional support. Patient has colostomy as well patient has a major three-vessel disease and patient was in A. fib patient of the proximal A. fib presently on amiodarone wasn't is sinus rhythm was sinus tachycardia. Does have history of chronic kidney disease stage III from polycystic kidney 03/23/2019 No significant change in clinical condition patient remains on norepinephrine remains intubated. Patient urine output is good patient remains on normal saline at 100 mL per hour. 03/24/2019 Patient is bit more awake today weaning of sedation although patient did undergo spontaneous breathing trial yet today. Patient is still on norepinephrine, IV heparin, IV normal saline which is cut down to 20 mL now patient actually received Lasix with the good urine output. 03/25/2019 Patient is norepinephrine is being weaned off, patient is presently receiving IV Lasix patient has small left pleural effusion creatinine although improved to 1.86 sedation is being discontinued and patient will undergo weaning trial. 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 CAT scan didn't show any intracranial bleed but sed rate cannot rule out subacute ischemia and recommended an MRI and neurology was subsequently consulted. Patient is still on norepinephrine, heparin drip and insulin drip. Not sure patient will need to continue the antibiotics will discuss with infectious disease 03/27/2019 Patient remains mechanically intubated patient is not responding well in spite of aggressive therapy considering his age and overall medical problems probably hospice and comfort care is more appropriate choice. Neurology is evaluating the patient. EEG is being will be obtained patient remains on propofol occasionally breathing over the ventilator patient does have cough reflex gag reflex. 03/28/2019 Patient has worsening leukocytosis because of which abdominal CAT scan is being obtained to rule out any intra-abdominal abscess. Patient is not doing well overall patient does have pulmonary edema started having fevers again patient remains on broad-spectrum antibiotics. As patient's sputum cultures are positiv e for Mayelin albicans. Patient remains on Zosyn. Repeat blood cultures will be obtained infectious disease will be consulted patient will be started on vancomycin. remains intubated patient is presently on Cardizem drip. Patient is also on amiodarone 03/29/2019 Patient remains on all the above-mentioned drips as yesterday. No significant improvement in his clinical condition except for some improvement in his serum creatinine. In spite of aggressive therapy and aggressive treatment patient did not recover well the chance of his reasonable recovery is very low. Even he recovers patient will not be a candidate for coronary artery bypass grafting without which patient's quality of life will be poor and frequent anginal episodes. Because of these reasons I believe patient is more appropriate for hospice. 03/30/2019 Patient was in the ICU intubated and sedated. Patient could not provide information.patient stillpatient still tachycardic of 121-138, he has a fever today of 100F, blood pressure 112/60 and his oxygen saturation 96% on FiO2 of 40%. He has leukocytosis of 20 4.3K.sugar is controlled. Creatinine 2.0, which is at baseline.patient remains on heparin drip and Zosyn, antifungal eraxis added today. He is on amiodarone.also aspirin and pain management 03/31/2019 Patient remains in the ICU intubated and sedated. His converted to sinus rhythm and Cardizem has been stopped, he needed lordosis appropriate affect. His sedation is been lowered slowly but patient still unresponsive. Family were thinking about tracheostomy and PEG tube placement however family are considering also extubation in 1-2 days for possible comfort measures if no improvement Review of systems: Unable to obtain due to his clinical condition Objective - Vital Signs Vital signs: Vital Signs Temp 99 F 03/31/19 12:00 Pulse 79 03/31/19 14:00 Resp 14 03/31/19 14:00 BP 93/47 03/31/19 14:00 Pulse Ox 97 03/31/19 14:00 Intake & Output 03/30/19 03/31/19 03/31/19 18:59 06:59 18:59 Intake Total 8743.187 7478.938 917.718 Output Total 2125 2165 1030 Balance -362.335 -499.062 -112.282 Weight 75.6 kg Intake: IV 675 350 225 .9 160 245 75 Anidulafungin 200 mg In 260 Sodium Chloride 0.9% 200 ml @ 84 mls/hr IVPB ONCE ONE Rx#:[id number] Cardizem 55 5 DAPTOmycin 500 mg In 50 Sodium Chloride 0.9% 50 ml @ 100 mls/hr IVPB Q48H [facility] Rx#:[id number] Piperacillin-Tazobactam 3 200 100 100 .375 gm In Sodium Chloride 0.9% 100 ml @ 25 mls/hr IVPB Q8HR [facility] Rx# :[id number] Intake, IV Titration 422.665 678.938 368.718 Amount Diltiazem 125 mg In 0 76.917 Sodium Chloride 0.9% 100 ml @ 5 MG/HR 5 mls/hr IV .Q24H [facility] Rx#:[id number] Heparin Sod,Pork in 0.45% 250 231.279 NaCl 25,000 unit In 0.45 % NaCl 1 250ml.bag @ 12 UNITS/KG/HR 8.712 mls/hr IV .Q24H [facility] Rx#: [id number] Insulin Regular 100 unit 25.637 23.911 In Sodium Chloride 0.9% 100 ml @ Per Protocol IV .Q0M [facility] Rx#:[id number] Norepinephrine 8 mg In 220.124 228.110 43.251 Sodium Chloride 0.9% 250 ml @ 0.05 MCG/KG/MIN 7.44 mls/hr IV .Q24H [facility] Rx#: [id number] Propofol 1,000 mg In 176.904 100 94.188 Empty Bag 1 bag @ Titrate IV .Q0M [facility] Rx#: [id number] Oral 60 Tube Feeding 515 547 294 Other 90 90 30 Output: Gastric Drainage 1050 Drainage 1000 800 Left upper quadrant 1000 800 ostomy Urine 1125 1115 230 Other: Voiding Method Indwelling Catheter Indwelling Catheter Indwelling Catheter # Voids 1 1 ABP, PAP, CO, CI - Last Documented Arterial Blood Pressure 115/42 - Exam -GENERAL: The patient is intubated and sedated HEENT: Pupils are round and equally reacting to light. EOMI. No scleral icterus. No conjunctival pallor. Normocephalic, atraumatic. No pharyngeal erythema. No thyromegaly. CARDIOVASCULAR: S1 and S2 present. No murmurs, rubs, or gallops. PULMONARY: Chest is clear to auscultation, no wheezing or crackles. ABDOMEN: Soft, nontender, nondistended, normoactive bowel sounds. No palpable organomegaly. MUSCULOSKELETAL: No joint swelling or deformity. EXTREMITIES: No cyanosis, clubbing, or pedal edema. NEUROLOGICAL: Gross neurological examination did not reveal any focal deficits. SKIN: No rashes. no petechiae. - Labs CBC & Chem 7: 03/31/19 04:10 03/31/19 04:10 Labs: Abnormal Lab Results - Last 24 Hours (Table) 03/30/19 03/30/19 03/30/19 Range/Units 15:50 16:49 17:57 WBC (3.8-10.6) k/uL RBC (4.30-5.90) m/uL Hgb (13.0-17.5) gm/dL Hct (39.0-53.0) % RDW (11.5-15.5) % Neutrophils # (1.3-7.7) k/uL Lymphocytes # (1.0-4.8) k/uL APTT (22.0-30.0) sec ABG pCO2 (35-45) mmHg ABG pO2 (83-108) mmHg ABG HCO3 (21-25) mmol/L ABG O2 Saturation (94-97) % Sodium (137-145) mmol/L Chloride (98-107) mmol/L Carbon Dioxide (22-30) mmol/L BUN (9-20) mg/dL Creatinine (0.66-1.25) mg/dL Glucose (74-99) mg/dL POC Glucose (mg/dL) 157 H 152 H 129 H (75-99) mg/dL Calcium (8.4-10.2) mg/dL 03/30/19 03/30/19 03/30/19 Range/Units 20:19 20:58 22:05 WBC (3.8-10.6) k/uL RBC (4.30-5.90) m/uL Hgb (13.0-17.5) gm/dL Hct (39.0-53.0) % RDW (11.5-15.5) % Neutrophils # (1.3-7.7) k/uL Lymphocytes # (1.0-4.8) k/uL APTT (22.0-30.0) sec ABG pCO2 (35-45) mmHg ABG pO2 (83-108) mmHg ABG HCO3 (21-25) mmol/L ABG O2 Saturation (94-97) % Sodium (137-145) mmol/L Chloride (98-107) mmol/L Carbon Dioxide (22-30) mmol/L BUN (9-20) mg/dL Creatinine (0.66-1.25) mg/dL Glucose (74-99) mg/dL POC Glucose (mg/dL) 179 H 204 H 189 H (75-99) mg/dL Calcium (8.4-10.2) mg/dL 03/30/19 03/31/19 03/31/19 Range/Units 23:03 00:05 01:05 WBC (3.8-10.6) k/uL RBC (4.30-5.90) m/uL Hgb (13.0-17.5) gm/dL Hct (39.0-53.0) % RDW (11.5-15.5) % Neutrophils # (1.3-7.7) k/uL Lymphocytes # (1.0-4.8) k/uL APTT (22.0-30.0) sec ABG pCO2 (35-45) mmHg ABG pO2 (83-108) mmHg ABG HCO3 (21-25) mmol/L ABG O2 Saturation (94-97) % Sodium (137-145) mmol/L Chloride (98-107) mmol/L Carbon Dioxide (22-30) mmol/L BUN (9-20) mg/dL Creatinine (0.66-1.25) mg/dL Glucose (74-99) mg/dL POC Glucose (mg/dL) 161 H 143 H 124 H (75-99) mg/dL Calcium (8.4-10.2) mg/dL 03/31/19 03/31/19 03/31/19 Range/Units 02:01 03:03 04:05 WBC (3.8-10.6) k/uL RBC (4.30-5.90) m/uL Hgb (13.0-17.5) gm/dL Hct (39.0-53.0) % RDW (11.5-15.5) % Neutrophils # (1.3-7.7) k/uL Lymphocytes # (1.0-4.8) k/uL APTT (22.0-30.0) sec ABG pCO2 (35-45) mmHg ABG pO2 (83-108) mmHg ABG HCO3 (21-25) mmol/L ABG O2 Saturation (94-97) % Sodium (137-145) mmol/L Chloride (98-107) mmol/L Carbon Dioxide (22-30) mmol/L BUN (9-20) mg/dL Creatinine (0.66-1.25) mg/dL Glucose (74-99) mg/dL POC Glucose (mg/dL) 121 H 136 H 163 H (75-99) mg/dL Calcium (8.4-10.2) mg/dL 03/31/19 03/31/19 03/31/19 Range/Units 04:10 04:10 04:10 WBC 22.4 H (3.8-10.6) k/uL RBC 3.06 L (4.30-5.90) m/uL Hgb 8.3 L (13.0-17.5) gm/dL Hct 26.4 L (39.0-53.0) % RDW 15.6 H (11.5-15.5) % Neutrophils # 20.6 H (1.3-7.7) k/uL Lymphocytes # 0.6 L (1.0-4.8) k/uL APTT 73.0 H (22.0-30.0) sec ABG pCO2 (35-45) mmHg ABG pO2 (83-108) mmHg ABG HCO3 (21-25) mmol/L ABG O2 Saturation (94-97) % Sodium 146 H (137-145) mmol/L Chloride 119 H (98-107) mmol/L Carbon Dioxide 16 L (22-30) mmol/L BUN 61 H (9-20) mg/dL Creatinine 2.14 H (0.66-1.25) mg/dL Glucose 159 H (74-99) mg/dL POC Glucose (mg/dL) (75-99) mg/dL Calcium 7.8 L (8.4-10.2) mg/dL 03/31/19 03/31/19 03/31/19 Range/Units 05:11 06:05 06:54 WBC (3.8-10.6) k/uL RBC (4.30-5.90) m/uL Hgb (13.0-17.5) gm/dL Hct (39.0-53.0) % RDW (11.5-15.5) % Neutrophils # (1.3-7.7) k/uL Lymphocytes # (1.0-4.8) k/uL APTT (22.0-30.0) sec ABG pCO2 (35-45) mmHg ABG pO2 (83-108) mmHg ABG HCO3 (21-25) mmol/L ABG O2 Saturation (94-97) % Sodium (137-145) mmol/L Chloride (98-107) mmol/L Carbon Dioxide (22-30) mmol/L BUN (9-20) mg/dL Creatinine (0.66-1.25) mg/dL Glucose (74-99) mg/dL POC Glucose (mg/dL) 172 H 181 H 159 H (75-99) mg/dL Calcium (8.4-10.2) mg/dL 03/31/19 03/31/19 03/31/19 Range/Units 07:51 08:17 08:59 WBC (3.8-10.6) k/uL RBC (4.30-5.90) m/uL Hgb (13.0-17.5) gm/dL Hct (39.0-53.0) % RDW (11.5-15.5) % Neutrophils # (1.3-7.7) k/uL Lymphocytes # (1.0-4.8) k/uL APTT (22.0-30.0) sec ABG pCO2 31 L (35-45) mmHg ABG pO2 109 H (83-108) mmHg ABG HCO3 18 L (21-25) mmol/L ABG O2 Saturation 97.9 H (94-97) % Sodium (137-145) mmol/L Chloride (98-107) mmol/L Carbon Dioxide (22-30) mmol/L BUN (9-20) mg/dL Creatinine (0.66-1.25) mg/dL Glucose (74-99) mg/dL POC Glucose (mg/dL) 145 H 150 H (75-99) mg/dL Calcium (8.4-10.2) mg/dL 03/31/19 03/31/19 03/31/19 Range/Units 10:08 11:06 12:03 WBC (3.8-10.6) k/uL RBC (4.30-5.90) m/uL Hgb (13.0-17.5) gm/dL Hct (39.0-53.0) % RDW (11.5-15.5) % Neutrophils # (1.3-7.7) k/uL Lymphocytes # (1.0-4.8) k/uL APTT (22.0-30.0) sec ABG pCO2 (35-45) mmHg ABG pO2 (83-108) mmHg ABG HCO3 (21-25) mmol/L ABG O2 Saturation (94-97) % Sodium (137-145) mmol/L Chloride (98-107) mmol/L Carbon Dioxide (22-30) mmol/L BUN (9-20) mg/dL Creatinine (0.66-1.25) mg/dL Glucose (74-99) mg/dL POC Glucose (mg/dL) 156 H 152 H 152 H (75-99) mg/dL Calcium (8.4-10.2) mg/dL 03/31/19 Range/Units 13:58 WBC (3.8-10.6) k/uL RBC (4.30-5.90) m/uL Hgb (13.0-17.5) gm/dL Hct (39.0-53.0) % RDW (11.5-15.5) % Neutrophils # (1.3-7.7) k/uL Lymphocytes # (1.0-4.8) k/uL APTT (22.0-30.0) sec ABG pCO2 (35-45) mmHg ABG pO2 (83-108) mmHg ABG HCO3 (21-25) mmol/L ABG O2 Saturation (94-97) % Sodium (137-145) mmol/L Chloride (98-107) mmol/L Carbon Dioxide (22-30) mmol/L BUN (9-20) mg/dL Creatinine (0.66-1.25) mg/dL Glucose (74-99) mg/dL POC Glucose (mg/dL) 156 H (75-99) mg/dL Calcium (8.4-10.2) mg/dL Microbiology - Last 24 Hours (Table) 03/28/19 13:05 Blood Culture - Preliminary Blood No Growth after 72 hours Assessment and Plan Assessment: Septic shock patient is on pressor support and the sepsis secondary to ischemic bowel. Patient started having fever again repeat blood cultures were obtained and daptomycin was started to cover gram-positive organisms patient is already on Zosyn. Patient remains intubated no syncope in changes in his clinical condition neurology evaluated the patient as well. Patient does have pulmonary edema and is in atrial fibrillation. CAT scan of the head is concerning for subacute hematoma because of which neurology will evaluate the patient. EEG will be obtained -Coronary artery disease severe multivessel 33 vessel disease patient had dyspnea for 40-45% with mitral regurgitation, patient is bit volume overloaded receiving Lasix at this time IV fluids were cut down to 20 mL per hour patient is on antiplatelet statin for this -Proximal A. fib presently sinus rhythm with PVCs and patient is on amiodarone oral which will be continued -Ventilator dependent respiratory failure secondary to sepsis management as per pulmonology -Severe pulmonary hypertension -Hyperlipidemia -Type 2 diabetes mellitus continue with present regimen -Chronic kidney disease stage III with some acute kidney injury from sepsis and acute tubular necrosis chronic kidney disease secondary to diabetic nephropathy Acute renal failure: Secondary to acute tubular necrosis and prerenal azotemia which is improving -COPD with acute exacerbation -Polycystic kidney disease -Hypertension patient is presently hypotensive and is in shock -History of bladder cancer with TURP in the past Plan: Patient's overall prognosis is poor his clinical condition is guarded now. Patient's CODE STATUS is DO NOT RESUSCITATE family are considering for hospice and comfort care as in spite of aggressive measures patient did not have any significant improvement in his overall clinical condition appears to be getting worse at this time.
--- NOTE | 2019-03-31 15:40 | P.PN ---
Subjective Progress Note Date: 03/31/19 CHIEF COMPLAINT: History of ischemic small bowel HISTORY OF PRESENT ILLNESS: The patient is a 73-year-old gentleman in the ICU on full ventilatory support who status post laparotomy with small bowel resection for small bowel ischemia. He has been minimally responsive per discussion with nurse. He is off Levophed. He has converted into sinus rhythm ROS: No fevers or chills. PHYSICAL EXAM: VITAL SIGNS: Reviewed CONSTITUTIONAL: Well developed and in no acute distress. EYES: Conjuctivae without sclera icterus. HEAD, EARS, NOSE, THROAT: Moist buccal mucosa. Head is atraumatic, normocephalic . Hears conversational speech. No nasal drainage. NECK: Supple. RESPIRATORY: Non-labored respirations and equal bilateral excursions on mechanical ventilation. CARDIOVASCULAR: Palpable 2+ radial pulses. ABDOMEN: Soft. Non-tender. Ostomy functioning. MUSCULOSKELETAL: No gross deformity of the lower extremities noted. No clubbing. No cyanosis. SKIN: Good skin turgor. Well perfused. NEUROLOGIC: Sedated PSYCH: Sedated CLINCAL LABS: Reviewed with hemoglobin trending downward from 8.6-8.3, now 8.0 today. WBC persistently elevated over 24,000 now 22,000+ ASSESSMENT: 1. Status post small bowel resection for small bowel infarction 2. Mechanical vent dependent respiratory failure 3. Persistent leukocytosis with sepsis 4. Ischemic cardiomyopathy PLAN: 1. Overall, guarded prognosis. 2. Continue tube feeds 3. Continue IV antibiotics. Objective - Vital Signs Vital signs: Vital Signs Temp 99 F 03/31/19 12:00 Pulse 79 03/31/19 14:00 Resp 14 03/31/19 14:00 BP 93/47 03/31/19 14:00 Pulse Ox 97 03/31/19 14:00 Intake & Output 03/30/19 03/31/19 03/31/19 18:59 06:59 18:59 Intake Total 2553.906 0640.938 968.226 Output Total 2125 2165 1030 Balance -362.335 -499.062 -61.774 Weight 75.6 kg Intake: IV 675 350 225 .9 160 245 75 Anidulafungin 200 mg In 260 Sodium Chloride 0.9% 200 ml @ 84 mls/hr IVPB ONCE ONE Rx#:[id number] Cardizem 55 5 DAPTOmycin 500 mg In 50 Sodium Chloride 0.9% 50 ml @ 100 mls/hr IVPB Q48H [facility] Rx#:[id number] Piperacillin-Tazobactam 3 200 100 100 .375 gm In Sodium Chloride 0.9% 100 ml @ 25 mls/hr IVPB Q8HR [facility] Rx# :[id number] Intake, IV Titration 422.665 678.938 419.226 Amount Diltiazem 125 mg In 0 76.917 Sodium Chloride 0.9% 100 ml @ 5 MG/HR 5 mls/hr IV .Q24H [facility] Rx#:[id number] Heparin Sod,Pork in 0.45% 250 231.279 NaCl 25,000 unit In 0.45 % NaCl 1 250ml.bag @ 12 UNITS/KG/HR 8.712 mls/hr IV .Q24H [facility] Rx#: [id number] Insulin Regular 100 unit 25.637 23.911 In Sodium Chloride 0.9% 100 ml @ Per Protocol IV .Q0M [facility] Rx#:[id number] Norepinephrine 8 mg In 220.124 228.110 62.446 Sodium Chloride 0.9% 250 ml @ 0.05 MCG/KG/MIN 7.44 mls/hr IV .Q24H [facility] Rx#: [id number] Propofol 1,000 mg In 176.904 100 125.501 Empty Bag 1 bag @ Titrate IV .Q0M [facility] Rx#: [id number] Oral 60 Tube Feeding 515 547 294 Other 90 90 30 Output: Gastric Drainage 1050 Drainage 1000 800 Left upper quadrant 1000 800 ostomy Urine 1125 1115 230 Other: Voiding Method Indwelling Catheter Indwelling Catheter Indwelling Catheter # Voids 1 1 ABP, PAP, CO, CI - Last Documented Arterial Blood Pressure 115/42 - Labs CBC & Chem 7: 03/31/19 04:10 03/31/19 04:10 Labs: Abnormal Lab Results - Last 24 Hours (Table) 03/30/19 03/30/19 03/30/19 Range/Units 15:50 16:49 17:57 WBC (3.8-10.6) k/uL RBC (4.30-5.90) m/uL Hgb (13.0-17.5) gm/dL Hct (39.0-53.0) % RDW (11.5-15.5) % Neutrophils # (1.3-7.7) k/uL Lymphocytes # (1.0-4.8) k/uL APTT (22.0-30.0) sec ABG pCO2 (35-45) mmHg ABG pO2 (83-108) mmHg ABG HCO3 (21-25) mmol/L ABG O2 Saturation (94-97) % Sodium (137-145) mmol/L Chloride (98-107) mmol/L Carbon Dioxide (22-30) mmol/L BUN (9-20) mg/dL Creatinine (0.66-1.25) mg/dL Glucose (74-99) mg/dL POC Glucose (mg/dL) 157 H 152 H 129 H (75-99) mg/dL Calcium (8.4-10.2) mg/dL 03/30/19 03/30/19 03/30/19 Range/Units 20:19 20:58 22:05 WBC (3.8-10.6) k/uL RBC (4.30-5.90) m/uL Hgb (13.0-17.5) gm/dL Hct (39.0-53.0) % RDW (11.5-15.5) % Neutrophils # (1.3-7.7) k/uL Lymphocytes # (1.0-4.8) k/uL APTT (22.0-30.0) sec ABG pCO2 (35-45) mmHg ABG pO2 (83-108) mmHg ABG HCO3 (21-25) mmol/L ABG O2 Saturation (94-97) % Sodium (137-145) mmol/L Chloride (98-107) mmol/L Carbon Dioxide (22-30) mmol/L BUN (9-20) mg/dL Creatinine (0.66-1.25) mg/dL Glucose (74-99) mg/dL POC Glucose (mg/dL) 179 H 204 H 189 H (75-99) mg/dL Calcium (8.4-10.2) mg/dL 03/30/19 03/31/19 03/31/19 Range/Units 23:03 00:05 01:05 WBC (3.8-10.6) k/uL RBC (4.30-5.90) m/uL Hgb (13.0-17.5) gm/dL Hct (39.0-53.0) % RDW (11.5-15.5) % Neutrophils # (1.3-7.7) k/uL Lymphocytes # (1.0-4.8) k/uL APTT (22.0-30.0) sec ABG pCO2 (35-45) mmHg ABG pO2 (83-108) mmHg ABG HCO3 (21-25) mmol/L ABG O2 Saturation (94-97) % Sodium (137-145) mmol/L Chloride (98-107) mmol/L Carbon Dioxide (22-30) mmol/L BUN (9-20) mg/dL Creatinine (0.66-1.25) mg/dL Glucose (74-99) mg/dL POC Glucose (mg/dL) 161 H 143 H 124 H (75-99) mg/dL Calcium (8.4-10.2) mg/dL 03/31/19 03/31/19 03/31/19 Range/Units 02:01 03:03 04:05 WBC (3.8-10.6) k/uL RBC (4.30-5.90) m/uL Hgb (13.0-17.5) gm/dL Hct (39.0-53.0) % RDW (11.5-15.5) % Neutrophils # (1.3-7.7) k/uL Lymphocytes # (1.0-4.8) k/uL APTT (22.0-30.0) sec ABG pCO2 (35-45) mmHg ABG pO2 (83-108) mmHg ABG HCO3 (21-25) mmol/L ABG O2 Saturation (94-97) % Sodium (137-145) mmol/L Chloride (98-107) mmol/L Carbon Dioxide (22-30) mmol/L BUN (9-20) mg/dL Creatinine (0.66-1.25) mg/dL Glucose (74-99) mg/dL POC Glucose (mg/dL) 121 H 136 H 163 H (75-99) mg/dL Calcium (8.4-10.2) mg/dL 03/31/19 03/31/19 03/31/19 Range/Units 04:10 04:10 04:10 WBC 22.4 H (3.8-10.6) k/uL RBC 3.06 L (4.30-5.90) m/uL Hgb 8.3 L (13.0-17.5) gm/dL Hct 26.4 L (39.0-53.0) % RDW 15.6 H (11.5-15.5) % Neutrophils # 20.6 H (1.3-7.7) k/uL Lymphocytes # 0.6 L (1.0-4.8) k/uL APTT 73.0 H (22.0-30.0) sec ABG pCO2 (35-45) mmHg ABG pO2 (83-108) mmHg ABG HCO3 (21-25) mmol/L ABG O2 Saturation (94-97) % Sodium 146 H (137-145) mmol/L Chloride 119 H (98-107) mmol/L Carbon Dioxide 16 L (22-30) mmol/L BUN 61 H (9-20) mg/dL Creatinine 2.14 H (0.66-1.25) mg/dL Glucose 159 H (74-99) mg/dL POC Glucose (mg/dL) (75-99) mg/dL Calcium 7.8 L (8.4-10.2) mg/dL 03/31/19 03/31/19 03/31/19 Range/Units 05:11 06:05 06:54 WBC (3.8-10.6) k/uL RBC (4.30-5.90) m/uL Hgb (13.0-17.5) gm/dL Hct (39.0-53.0) % RDW (11.5-15.5) % Neutrophils # (1.3-7.7) k/uL Lymphocytes # (1.0-4.8) k/uL APTT (22.0-30.0) sec ABG pCO2 (35-45) mmHg ABG pO2 (83-108) mmHg ABG HCO3 (21-25) mmol/L ABG O2 Saturation (94-97) % Sodium (137-145) mmol/L Chloride (98-107) mmol/L Carbon Dioxide (22-30) mmol/L BUN (9-20) mg/dL Creatinine (0.66-1.25) mg/dL Glucose (74-99) mg/dL POC Glucose (mg/dL) 172 H 181 H 159 H (75-99) mg/dL Calcium (8.4-10.2) mg/dL 03/31/19 03/31/19 03/31/19 Range/Units 07:51 08:17 08:59 WBC (3.8-10.6) k/uL RBC (4.30-5.90) m/uL Hgb (13.0-17.5) gm/dL Hct (39.0-53.0) % RDW (11.5-15.5) % Neutrophils # (1.3-7.7) k/uL Lymphocytes # (1.0-4.8) k/uL APTT (22.0-30.0) sec ABG pCO2 31 L (35-45) mmHg ABG pO2 109 H (83-108) mmHg ABG HCO3 18 L (21-25) mmol/L ABG O2 Saturation 97.9 H (94-97) % Sodium (137-145) mmol/L Chloride (98-107) mmol/L Carbon Dioxide (22-30) mmol/L BUN (9-20) mg/dL Creatinine (0.66-1.25) mg/dL Glucose (74-99) mg/dL POC Glucose (mg/dL) 145 H 150 H (75-99) mg/dL Calcium (8.4-10.2) mg/dL 03/31/19 03/31/19 03/31/19 Range/Units 10:08 11:06 12:03 WBC (3.8-10.6) k/uL RBC (4.30-5.90) m/uL Hgb (13.0-17.5) gm/dL Hct (39.0-53.0) % RDW (11.5-15.5) % Neutrophils # (1.3-7.7) k/uL Lymphocytes # (1.0-4.8) k/uL APTT (22.0-30.0) sec ABG pCO2 (35-45) mmHg ABG pO2 (83-108) mmHg ABG HCO3 (21-25) mmol/L ABG O2 Saturation (94-97) % Sodium (137-145) mmol/L Chloride (98-107) mmol/L Carbon Dioxide (22-30) mmol/L BUN (9-20) mg/dL Creatinine (0.66-1.25) mg/dL Glucose (74-99) mg/dL POC Glucose (mg/dL) 156 H 152 H 152 H (75-99) mg/dL Calcium (8.4-10.2) mg/dL 03/31/19 Range/Units 13:58 WBC (3.8-10.6) k/uL RBC (4.30-5.90) m/uL Hgb (13.0-17.5) gm/dL Hct (39.0-53.0) % RDW (11.5-15.5) % Neutrophils # (1.3-7.7) k/uL Lymphocytes # (1.0-4.8) k/uL APTT (22.0-30.0) sec ABG pCO2 (35-45) mmHg ABG pO2 (83-108) mmHg ABG HCO3 (21-25) mmol/L ABG O2 Saturation (94-97) % Sodium (137-145) mmol/L Chloride (98-107) mmol/L Carbon Dioxide (22-30) mmol/L BUN (9-20) mg/dL Creatinine (0.66-1.25) mg/dL Glucose (74-99) mg/dL POC Glucose (mg/dL) 156 H (75-99) mg/dL Calcium (8.4-10.2) mg/dL Microbiology - Last 24 Hours (Table) 03/28/19 13:05 Blood Culture - Preliminary Blood No Growth after 72 hours Assessment and Plan (1) Small bowel infarction Current Visit: Yes Status: Acute Code(s): K55.029 - ACUTE INFARCTION OF SMALL INTESTINE, EXTENT UNSPECIFIED SNOMED Code(s): 265728007 (2) COPD (chronic obstructive pulmonary disease) with emphysema Current Visit: Yes Status: Acute Code(s): J43.9 - EMPHYSEMA, UNSPECIFIED SNOMED Code(s): 22434106 (3) Sepsis associated hypotension Current Visit: Yes Status: Acute Code(s): A41.9 - SEPSIS, UNSPECIFIED ORGANISM; I95.9 - HYPOTENSION, UNSPECIFIED SNOMED Code(s): 82798786 (4) Ischemic cardiomyopathy Current Visit: Yes Status: Acute Code(s): I25.5 - ISCHEMIC CARDIOMYOPATHY SNOMED Code(s): 176621370 (5) Ventilator dependent Current Visit: Yes Status: Acute Code(s): Z99.11 - DEPENDENCE ON RESPIRATOR [VENTILATOR] STATUS SNOMED Code(s): 731117033 (6) Respiratory failure Current Visit: Yes Status: Acute Code(s): J96.90 - RESPIRATORY FAILURE, UNSP, UNSP W HYPOXIA OR HYPERCAPNIA SNOMED Code(s): 850578673 (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
[2019-03-31 15:57] LABS: Glucose,Whole Blood 157 mg/dL (75-99)
[2019-03-31] MEDS ORDERED: ANIDULAFUNGIN 100 MG in SODIUM CHLORIDE 0.9% 100 ML IVPB SCH (16:00)
[2019-03-31 17:56] LABS: Glucose,Whole Blood 167 mg/dL (75-99)
[2019-03-31 19:09] LABS: Glucose,Whole Blood 174 mg/dL (75-99)
[2019-03-31] MEDS: INSULIN REGULAR 100 UNIT in SODIUM CHLORIDE 0.9% 100 ML IV SCH (19:11)
[2019-03-31] MEDS: SODIUM CHLORIDE 0.9% 1,000 ML IV SCH (19:14)
[2019-03-31 19:58] LABS: Glucose,Whole Blood 156 mg/dL (75-99)
--- NOTE | 2019-03-31 20:02 | PN ---
PROGRESS NOTE DATE OF SERVICE: 03/31/2019. REASON FOR FOLLOWUP: 1. Secondary peritonitis from perforated small bowel. 2. Pneumonia. INTERVAL HISTORY: The patient is currently afebrile. The patient is hemodynamically stable. The patient's sedation has been cut down and is currently off the pressor support as well. The patient remains to be unresponsive. He has been tolerating his tube feeds and no worsening diarrhea reported by the nursing staff. PHYSICAL EXAMINATION: Blood pressure is 93/47 with a pulse of 79, temperature 98. He is 97% on 40% FiO2. General description is an elderly male lying in bed in no distress. Respiratory system: Unlabored breathing. Clear to auscultation anteriorly. Heart S1, S2. Regular rate and rhythm. ABDOMEN: Soft. No tenderness. Extremities: No edema of the feet. LABS: Hemoglobin is 8.1, white count 2.4, BUN of 61, creatinine is 2.14. Sputum with Klebsiella. DIAGNOSTIC IMPRESSION AND PLAN: Patient with sepsis in this patient who did have a secondary peritonitis with a small- bowel obstruction ischemia, status post laparotomy resection and diverting jejunostomy with complaint of pneumonia. The patient is currently covered with Zosyn and daptomycin. Blood culture did show a downward trend. If no Gram positive, Daptomycin will be discontinued. Family at bedside. Their questions and concerns were answered. MMODL / IJN: [id number] /
[2019-03-31 20:53] LABS: Glucose,Whole Blood 171 mg/dL (75-99)
[2019-03-31 22:03] LABS: Glucose,Whole Blood 145 mg/dL (75-99)
[2019-03-31 23:02] LABS: Glucose,Whole Blood 149 mg/dL (75-99)
[2019-03-31 23:52] LABS: Glucose,Whole Blood 164 mg/dL (75-99)
[2019-04-01 01:02] LABS: Glucose,Whole Blood 166 mg/dL (75-99)
[2019-04-01 01:55] LABS: Glucose,Whole Blood 190 mg/dL (75-99)
[2019-04-01] MEDS: HYDROmorphone 1 MG/ML 1 ML SYRINGE IVP PRN (02:38)
[2019-04-01 02:56] LABS: Glucose,Whole Blood 179 mg/dL (75-99)
[2019-04-01 03:57] LABS: Glucose,Whole Blood 184 mg/dL (75-99)
[2019-04-01 05:02] LABS: Glucose,Whole Blood 186 mg/dL (75-99)
[2019-04-01 05:07] LABS: Basophils % (A) 0 %; Eosinophils # (A) 0.1 k/uL (0-0.7); Eosinophils % (A) 1 %; HCT 26.4 % (39.0-53.0); HGB 8.5 gm/dL (13.0-17.5); Hypochromasia Slight; Lymphocytes # (A) 0.4 k/uL (1.0-4.8); Lymphocytes % (A) 2 %; MCH 27.6 pg (25.0-35.0); MCV 86.1 fL (80.0-100.0); Monocytes # (A) 0.5 k/uL (0-1.0); Monocytes % (A) 2 %; Neutrophils % (A) 94 %; Platelet Count 363 k/uL (150-450); RBC 3.07 m/uL (4.30-5.90); RDW 15.6 % (11.5-15.5); WBC 20.2 k/uL (3.8-10.6)
[2019-04-01 05:16] LABS: Calcium 8.4 mg/dL (8.4-10.2); Potassium 3.9 mmol/L (3.5-5.1)
[2019-04-01 05:16] LABS: ABG Base Excess -6.8 mmol/L; ABG HCO3 18 mmol/L (21-25); ABG Oxygen Saturation 97.4 % (94-97); ABG PCO2 29 mmHg (35-45); ABG PO2 99 mmHg (83-108); ABG TCO2 19 mmol/L (19-24)
[2019-04-01 05:19] LABS: Allen Test Performed? no
[2019-04-01 05:55] LABS: Glucose,Whole Blood 190 mg/dL (75-99)
[2019-04-01 06:48] LABS: Glucose,Whole Blood 185 mg/dL (75-99)
[2019-04-01] MEDS: IPRATROPIUM-ALBUTEROL 3 ML NEB INHALATION SCH ×2 (07:21→12:13)
--- NOTE | 2019-04-01 07:33 | XR ---
EXAMINATION TYPE: XR chest 1V DATE OF EXAM: 04/01/2019 COMPARISON: 03/31/2019 HISTORY: Ventilatory dependent respiratory failure. TECHNIQUE: Single frontal view of the chest is obtained. FINDINGS: Left-sided internal jugular approach central venous catheter, endotracheal tube, and enter ic tube are again seen. Endotracheal tube has been advanced in the interim with its distal tip now te rminating approximately 2 cm of the jagdish. Redemonstration of retrocardiac opacity and right basilar opacity with blunting of the costophrenic angles. Osseous structures are generally demineralized. Pl eural effusion layers of the right lower chest wall. Lung apices lucent also noted. IMPRESSION: Redistribution of small bilateral pleural effusions with associated bibasilar airspace d isease, likely atelectasis. Lucency of the lung apices suggests underlying COPD.
[2019-04-01 08:11] LABS: Glucose,Whole Blood 178 mg/dL (75-99)
[2019-04-01] MEDS: HEPARIN SOD,PORK IN 0.45% NACL 25,000 UNIT in 0.45% NACL 1 250ML.BAG IV SCH (08:15)
[2019-04-01] MEDS: CHLORHEXIDINE GLUCONATE 15 ML CUP MUCOUS MEM SCH (08:37)
[2019-04-01] MEDS: PANTOPRAZOLE 40 MG/10 ML VIAL IVP SCH (08:37)
[2019-04-01] MEDS: METOPROLOL TARTRATE 25 MG TAB PO SCH (08:37)
[2019-04-01] MEDS: ASPIRIN 81 MG PO SCH (08:37)
[2019-04-01] MEDS: AMIODARONE 200 MG TAB PO SCH (08:37)
[2019-04-01] MEDS: PIPERACILLIN-TAZOBACTAM 3.375 GM in SODIUM CHLORIDE 0.9% 100 ML IVPB SCH (08:37)
[2019-04-01] MEDS: FUROSEMIDE 10 MG/ML 4 ML VIAL IV SCH (08:37)
[2019-04-01] MEDS: FENOFIBRATE 160 MG TAB PO SCH (08:37)
[2019-04-01 09:11] LABS: Glucose,Whole Blood 149 mg/dL (75-99)
--- NOTE | 2019-04-01 09:21 | P.VSCSTY ---
Greater Saphenous Vein Mapping This is bilateral lower extremity greater saphenous vein mapping. Date of service: 03/14/2019 Vein quality and ultrasound appearance: No endoluminal thrombus or wall changes are seen. Vein size groin right : 7.4 x 9.3 groin left: 7.7 x 7.9 High thigh right: 3.8 x 4.6 high thigh left: 3.5 x 3.6 Mid thigh right: 3.3 x 3.8 mid thigh left: 1.5 x 1.8 Above-knee right: 3.1 x 4.3 above- knee left: 1.9 x 2.8 Knee: 1.4 x 2.2 knee: 2.2 x 2.0 Below knee right: 2.0 x 2.5 below-knee left: 2.2 x 2.0 Mid calf right: 1.2 x 1.7 mid calf left: 1.6 x 2.5 Ankle right: 1.5 x 1.9 ankle left: 1.7 x 3.1 Impression: Limited usable vein bilaterally. On the right to the knee and a possible small segment upper left thigh. The rest appears a bit small for use as conduit..
[2019-04-01] MEDS: PROPOFOL 1,000 MG in EMPTY BAG 1 BAG IV SCH (09:48)
[2019-04-01 09:55] VITALS: BMI 27.0
--- NOTE | 2019-04-01 09:56 | P.PN ---
<Denisa Sharma - Last Filed: 04/01/19 09:54> Subjective Progress Note Date: 04/01/19 CHIEF COMPLAINT: abdominal pain HISTORY OF PRESENT ILLNESS: Patient is s/p exploratory laparotomy, small bowel resection, and jejunostomy performed on 03/21/19. Patient examined at the [facility]. He remains in the intensive care unit. He remains intubated and sedated. Tolerating tube feedings. He is a DNR. Family does not wish to pursue trach and PEG. PHYSICAL EXAM: VITAL SIGNS: Reviewed GENERAL: Well-developed in no acute distress. HEENT: ET tube noted. NG tube intact. No sclera icterus. Extraocular movements grossly intact. Moist buccal mucosa. Head is atraumatic, normocephalic. NECK: Supple without lymphadenopathy. CHEST: Non-labored respirations and equal bilateral excursions-remains on mechanical ventilation. CARDIOVASCULAR: Regular rate with regular rhythm. Palpable 2+ radial pulses. ABDOMEN: Soft. Nondistended. Dressing clean dry and intact. Ostomy with stool noted. MUSCULOSKELETAL: No clubbing or cyanosis NEUROLOGIC: Sedated on mechanical ventilation PSYCH: Sedated on mechanical ventilation SKIN: Well perfused. Good skin turgor. ASSESSMENT: 1. Abdominal pain 2. Small bowel obstruction secondary to small bowel ischemia/necrosis with perforation, s/p exploratory laparotomy, small bowel resection, and jejunostomy. PLAN: Continue tube feedings as tolerated Continue antibiotics. Monitor WBC. Dr. Soliman following Continue ICU/ventilator management per Dr. Joy Patients family considering terminal wean today. Nurse practitioner note has been reviewed by physician. Signing provider agrees with the documented findings, assessment, and plan of care. Objective - Vital Signs Vital signs: Vital Signs Temp 98.5 F 04/01/19 04:00 Pulse 91 04/01/19 07:35 Resp 28 H 04/01/19 07:00 BP 106/57 04/01/19 07:00 Pulse Ox 96 04/01/19 07:00 Intake & Output 03/31/19 04/01/19 04/01/19 18:59 06:59 18:59 Intake Total 1645.758 9227.211 407.095 Output Total 1830 2230 60 Balance -411.686 -1181.789 347.095 Weight 76 kg Intake: IV 305 345 20 .9 130 245 20 DAPTOmycin 500 mg In 50 Sodium Chloride 0.9% 50 ml @ 100 mls/hr IVPB Q48H [facility] Rx#:[id number] Piperacillin-Tazobactam 3 125 100 .375 gm In Sodium Chloride 0.9% 100 ml @ 25 mls/hr IVPB Q8HR [facility] Rx# :[id number] Intake, IV Titration 621.314 66.211 345.095 Amount Anidulafungin 100 mg In 100 Sodium Chloride 0.9% 100 ml @ 84 mls/hr IVPB Q24H [facility] Rx#:[id number] Heparin Sod,Pork in 0.45% 231.279 239.556 NaCl 25,000 unit In 0.45 % NaCl 1 250ml.bag @ 12 UNITS/KG/HR 8.712 mls/hr IV .Q24H [facility] Rx#: [id number] Insulin Regular 100 unit 53.960 15.192 In Sodium Chloride 0.9% 100 ml @ Per Protocol IV .Q0M [facility] Rx#:[id number] Norepinephrine 8 mg In 62.446 12.251 Sodium Chloride 0.9% 250 ml @ 0.05 MCG/KG/MIN 7.44 mls/hr IV .Q24H [facility] Rx#: [id number] Piperacillin-Tazobactam 3 100 .375 gm In Sodium Chloride 0.9% 100 ml @ 25 mls/hr IVPB Q8HR [facility] Rx# :[id number] Propofol 1,000 mg In 127.589 90.347 Empty Bag 1 bag @ Titrate IV .Q0M [facility] Rx#: [id number] Tube Feeding 462 547 42 Other 30 90 Output: Drainage 1200 Left upper quadrant 1200 ostomy Urine 630 1130 60 Stool 1100 Other: Voiding Method Indwelling Catheter Indwelling Catheter # Voids 1 ABP, PAP, CO, CI - Last Documented Arterial Blood Pressure 115/46 - Labs CBC & Chem 7: 04/01/19 05:00 04/01/19 05:00 Labs: Abnormal Lab Results - Last 24 Hours (Table) 03/31/19 03/31/19 03/31/19 Range/Units 10:08 11:06 12:03 WBC (3.8-10.6) k/uL RBC (4.30-5.90) m/uL Hgb (13.0-17.5) gm/dL Hct (39.0-53.0) % RDW (11.5-15.5) % Neutrophils # (1.3-7.7) k/uL Lymphocytes # (1.0-4.8) k/uL APTT (22.0-30.0) sec ABG pCO2 (35-45) mmHg ABG HCO3 (21-25) mmol/L ABG O2 Saturation (94-97) % Sodium (137-145) mmol/L Chloride (98-107) mmol/L Carbon Dioxide (22-30) mmol/L BUN (9-20) mg/dL Creatinine (0.66-1.25) mg/dL Glucose (74-99) mg/dL POC Glucose (mg/dL) 156 H 152 H 152 H (75-99) mg/dL 03/31/19 03/31/19 03/31/19 Range/Units 13:58 15:56 17:55 WBC (3.8-10.6) k/uL RBC (4.30-5.90) m/uL Hgb (13.0-17.5) gm/dL Hct (39.0-53.0) % RDW (11.5-15.5) % Neutrophils # (1.3-7.7) k/uL Lymphocytes # (1.0-4.8) k/uL APTT (22.0-30.0) sec ABG pCO2 (35-45) mmHg ABG HCO3 (21-25) mmol/L ABG O2 Saturation (94-97) % Sodium (137-145) mmol/L Chloride (98-107) mmol/L Carbon Dioxide (22-30) mmol/L BUN (9-20) mg/dL Creatinine (0.66-1.25) mg/dL Glucose (74-99) mg/dL POC Glucose (mg/dL) 156 H 157 H 167 H (75-99) mg/dL 03/31/19 03/31/19 03/31/19 Range/Units 19:09 19:57 20:52 WBC (3.8-10.6) k/uL RBC (4.30-5.90) m/uL Hgb (13.0-17.5) gm/dL Hct (39.0-53.0) % RDW (11.5-15.5) % Neutrophils # (1.3-7.7) k/uL Lymphocytes # (1.0-4.8) k/uL APTT (22.0-30.0) sec ABG pCO2 (35-45) mmHg ABG HCO3 (21-25) mmol/L ABG O2 Saturation (94-97) % Sodium (137-145) mmol/L Chloride (98-107) mmol/L Carbon Dioxide (22-30) mmol/L BUN (9-20) mg/dL Creatinine (0.66-1.25) mg/dL Glucose (74-99) mg/dL POC Glucose (mg/dL) 174 H 156 H 171 H (75-99) mg/dL 03/31/19 03/31/19 03/31/19 Range/Units 22:01 23:00 23:50 WBC (3.8-10.6) k/uL RBC (4.30-5.90) m/uL Hgb (13.0-17.5) gm/dL Hct (39.0-53.0) % RDW (11.5-15.5) % Neutrophils # (1.3-7.7) k/uL Lymphocytes # (1.0-4.8) k/uL APTT (22.0-30.0) sec ABG pCO2 (35-45) mmHg ABG HCO3 (21-25) mmol/L ABG O2 Saturation (94-97) % Sodium (137-145) mmol/L Chloride (98-107) mmol/L Carbon Dioxide (22-30) mmol/L BUN (9-20) mg/dL Creatinine (0.66-1.25) mg/dL Glucose (74-99) mg/dL POC Glucose (mg/dL) 145 H 149 H 164 H (75-99) mg/dL 04/01/19 04/01/19 04/01/19 Range/Units 01:01 01:54 02:54 WBC (3.8-10.6) k/uL RBC (4.30-5.90) m/uL Hgb (13.0-17.5) gm/dL Hct (39.0-53.0) % RDW (11.5-15.5) % Neutrophils # (1.3-7.7) k/uL Lymphocytes # (1.0-4.8) k/uL APTT (22.0-30.0) sec ABG pCO2 (35-45) mmHg ABG HCO3 (21-25) mmol/L ABG O2 Saturation (94-97) % Sodium (137-145) mmol/L Chloride (98-107) mmol/L Carbon Dioxide (22-30) mmol/L BUN (9-20) mg/dL Creatinine (0.66-1.25) mg/dL Glucose (74-99) mg/dL POC Glucose (mg/dL) 166 H 190 H 179 H (75-99) mg/dL 04/01/19 04/01/19 04/01/19 Range/Units 03:55 05:00 05:00 WBC 20.2 H (3.8-10.6) k/uL RBC 3.07 L (4.30-5.90) m/uL Hgb 8.5 L (13.0-17.5) gm/dL Hct 26.4 L (39.0-53.0) % RDW 15.6 H (11.5-15.5) % Neutrophils # 19.0 H (1.3-7.7) k/uL Lymphocytes # 0.4 L (1.0-4.8) k/uL APTT 64.2 H (22.0-30.0) sec ABG pCO2 (35-45) mmHg ABG HCO3 (21-25) mmol/L ABG O2 Saturation (94-97) % Sodium (137-145) mmol/L Chloride (98-107) mmol/L Carbon Dioxide (22-30) mmol/L BUN (9-20) mg/dL Creatinine (0.66-1.25) mg/dL Glucose (74-99) mg/dL POC Glucose (mg/dL) 184 H (75-99) mg/dL 04/01/19 04/01/19 04/01/19 Range/Units 05:00 05:00 05:15 WBC (3.8-10.6) k/uL RBC (4.30-5.90) m/uL Hgb (13.0-17.5) gm/dL Hct (39.0-53.0) % RDW (11.5-15.5) % Neutrophils # (1.3-7.7) k/uL Lymphocytes # (1.0-4.8) k/uL APTT (22.0-30.0) sec ABG pCO2 29 L (35-45) mmHg ABG HCO3 18 L (21-25) mmol/L ABG O2 Saturation 97.4 H (94-97) % Sodium 150 H (137-145) mmol/L Chloride 122 H (98-107) mmol/L Carbon Dioxide 19 L (22-30) mmol/L BUN 58 H (9-20) mg/dL Creatinine 2.35 H (0.66-1.25) mg/dL Glucose 195 H (74-99) mg/dL POC Glucose (mg/dL) 186 H (75-99) mg/dL 04/01/19 04/01/19 04/01/19 Range/Units 05:54 06:46 08:10 WBC (3.8-10.6) k/uL RBC (4.30-5.90) m/uL Hgb (13.0-17.5) gm/dL Hct (39.0-53.0) % RDW (11.5-15.5) % Neutrophils # (1.3-7.7) k/uL Lymphocytes # (1.0-4.8) k/uL APTT (22.0-30.0) sec ABG pCO2 (35-45) mmHg ABG HCO3 (21-25) mmol/L ABG O2 Saturation (94-97) % Sodium (137-145) mmol/L Chloride (98-107) mmol/L Carbon Dioxide (22-30) mmol/L BUN (9-20) mg/dL Creatinine (0.66-1.25) mg/dL Glucose (74-99) mg/dL POC Glucose (mg/dL) 190 H 185 H 178 H (75-99) mg/dL 04/01/19 Range/Units 09:09 WBC (3.8-10.6) k/uL RBC (4.30-5.90) m/uL Hgb (13.0-17.5) gm/dL Hct (39.0-53.0) % RDW (11.5-15.5) % Neutrophils # (1.3-7.7) k/uL Lymphocytes # (1.0-4.8) k/uL APTT (22.0-30.0) sec ABG pCO2 (35-45) mmHg ABG HCO3 (21-25) mmol/L ABG O2 Saturation (94-97) % Sodium (137-145) mmol/L Chloride (98-107) mmol/L Carbon Dioxide (22-30) mmol/L BUN (9-20) mg/dL Creatinine (0.66-1.25) mg/dL Glucose (74-99) mg/dL POC Glucose (mg/dL) 149 H (75-99) mg/dL Microbiology - Last 24 Hours (Table) 03/28/19 13:05 Blood Culture - Preliminary Blood No Growth after 72 hours <Cynthia Raymundo - Last Filed: 04/01/19 18:31> Subjective As above. Patient changed to comfort measures Objective - Vital Signs Vital signs: Vital Signs Temp 98.9 F 04/01/19 08:00 Pulse 129 H 04/01/19 13:30 Resp 22 04/01/19 13:30 BP 97/72 04/01/19 13:30 Pulse Ox 95 04/01/19 13:30 Intake & Output 03/31/19 04/01/19 04/01/19 18:59 06:59 18:59 Intake Total 0594.526 6779.211 847.117 Output Total 1830 2230 1215 Balance -411.686 -1181.789 -367.883 Weight 76 kg 76 kg Intake: IV 305 345 258 .9 130 245 140 0.9% Pressure bag 18 DAPTOmycin 500 mg In 50 Sodium Chloride 0.9% 50 ml @ 100 mls/hr IVPB Q48H [facility] Rx#:[id number] Piperacillin-Tazobactam 3 125 100 100 .375 gm In Sodium Chloride 0.9% 100 ml @ 25 mls/hr IVPB Q8HR [facility] Rx# :[id number] Intake, IV Titration 621.314 66.211 349.117 Amount Anidulafungin 100 mg In 100 Sodium Chloride 0.9% 100 ml @ 84 mls/hr IVPB Q24H [facility] Rx#:[id number] Heparin Sod,Pork in 0.45% 231.279 239.556 NaCl 25,000 unit In 0.45 % NaCl 1 250ml.bag @ 12 UNITS/KG/HR 8.712 mls/hr IV .Q24H [facility] Rx#: [id number] Insulin Regular 100 unit 53.960 16.959 In Sodium Chloride 0.9% 100 ml @ Per Protocol IV .Q0M [facility] Rx#:[id number] Norepinephrine 8 mg In 62.446 12.251 Sodium Chloride 0.9% 250 ml @ 0.05 MCG/KG/MIN 7.44 mls/hr IV .Q24H [facility] Rx#: [id number] Piperacillin-Tazobactam 3 100 .375 gm In Sodium Chloride 0.9% 100 ml @ 25 mls/hr IVPB Q8HR [facility] Rx# :[id number] Propofol 1,000 mg In 127.589 92.602 Empty Bag 1 bag @ Titrate IV .Q0M [facility] Rx#: [id number] Tube Feeding 462 547 210 Other 30 90 30 Output: Drainage 1200 Left upper quadrant 1200 ostomy Urine 630 1130 665 Stool 1100 550 Other: Voiding Method Indwelling Catheter Indwelling Catheter Indwelling Catheter # Voids 1 ABP, PAP, CO, CI - Last Documented Arterial Blood Pressure 75/38 - Labs CBC & Chem 7: 04/01/19 05:00 04/01/19 05:00 Labs: Abnormal Lab Results - Last 24 Hours (Table) 03/31/19 03/31/19 03/31/19 Range/Units 19:09 19:57 20:52 WBC (3.8-10.6) k/uL RBC (4.30-5.90) m/uL Hgb (13.0-17.5) gm/dL Hct (39.0-53.0) % RDW (11.5-15.5) % Neutrophils # (1.3-7.7) k/uL Lymphocytes # (1.0-4.8) k/uL APTT (22.0-30.0) sec ABG pCO2 (35-45) mmHg ABG HCO3 (21-25) mmol/L ABG O2 Saturation (94-97) % Sodium (137-145) mmol/L Chloride (98-107) mmol/L Carbon Dioxide (22-30) mmol/L BUN (9-20) mg/dL Creatinine (0.66-1.25) mg/dL Glucose (74-99) mg/dL POC Glucose (mg/dL) 174 H 156 H 171 H (75-99) mg/dL 03/31/19 03/31/19 03/31/19 Range/Units 22:01 23:00 23:50 WBC (3.8-10.6) k/uL RBC (4.30-5.90) m/uL Hgb (13.0-17.5) gm/dL Hct (39.0-53.0) % RDW (11.5-15.5) % Neutrophils # (1.3-7.7) k/uL Lymphocytes # (1.0-4.8) k/uL APTT (22.0-30.0) sec ABG pCO2 (35-45) mmHg ABG HCO3 (21-25) mmol/L ABG O2 Saturation (94-97) % Sodium (137-145) mmol/L Chloride (98-107) mmol/L Carbon Dioxide (22-30) mmol/L BUN (9-20) mg/dL Creatinine (0.66-1.25) mg/dL Glucose (74-99) mg/dL POC Glucose (mg/dL) 145 H 149 H 164 H (75-99) mg/dL 04/01/19 04/01/19 04/01/19 Range/Units 01:01 01:54 02:54 WBC (3.8-10.6) k/uL RBC (4.30-5.90) m/uL Hgb (13.0-17.5) gm/dL Hct (39.0-53.0) % RDW (11.5-15.5) % Neutrophils # (1.3-7.7) k/uL Lymphocytes # (1.0-4.8) k/uL APTT (22.0-30.0) sec ABG pCO2 (35-45) mmHg ABG HCO3 (21-25) mmol/L ABG O2 Saturation (94-97) % Sodium (137-145) mmol/L Chloride (98-107) mmol/L Carbon Dioxide (22-30) mmol/L BUN (9-20) mg/dL Creatinine (0.66-1.25) mg/dL Glucose (74-99) mg/dL POC Glucose (mg/dL) 166 H 190 H 179 H (75-99) mg/dL 04/01/19 04/01/19 04/01/19 Range/Units 03:55 05:00 05:00 WBC 20.2 H (3.8-10.6) k/uL RBC 3.07 L (4.30-5.90) m/uL Hgb 8.5 L (13.0-17.5) gm/dL Hct 26.4 L (39.0-53.0) % RDW 15.6 H (11.5-15.5) % Neutrophils # 19.0 H (1.3-7.7) k/uL Lymphocytes # 0.4 L (1.0-4.8) k/uL APTT 64.2 H (22.0-30.0) sec ABG pCO2 (35-45) mmHg ABG HCO3 (21-25) mmol/L ABG O2 Saturation (94-97) % Sodium (137-145) mmol/L Chloride (98-107) mmol/L Carbon Dioxide (22-30) mmol/L BUN (9-20) mg/dL Creatinine (0.66-1.25) mg/dL Glucose (74-99) mg/dL POC Glucose (mg/dL) 184 H (75-99) mg/dL 04/01/19 04/01/19 04/01/19 Range/Units 05:00 05:00 05:15 WBC (3.8-10.6) k/uL RBC (4.30-5.90) m/uL Hgb (13.0-17.5) gm/dL Hct (39.0-53.0) % RDW (11.5-15.5) % Neutrophils # (1.3-7.7) k/uL Lymphocytes # (1.0-4.8) k/uL APTT (22.0-30.0) sec ABG pCO2 29 L (35-45) mmHg ABG HCO3 18 L (21-25) mmol/L ABG O2 Saturation 97.4 H (94-97) % Sodium 150 H (137-145) mmol/L Chloride 122 H (98-107) mmol/L Carbon Dioxide 19 L (22-30) mmol/L BUN 58 H (9-20) mg/dL Creatinine 2.35 H (0.66-1.25) mg/dL Glucose 195 H (74-99) mg/dL POC Glucose (mg/dL) 186 H (75-99) mg/dL 04/01/19 04/01/19 04/01/19 Range/Units 05:54 06:46 08:10 WBC (3.8-10.6) k/uL RBC (4.30-5.90) m/uL Hgb (13.0-17.5) gm/dL Hct (39.0-53.0) % RDW (11.5-15.5) % Neutrophils # (1.3-7.7) k/uL Lymphocytes # (1.0-4.8) k/uL APTT (22.0-30.0) sec ABG pCO2 (35-45) mmHg ABG HCO3 (21-25) mmol/L ABG O2 Saturation (94-97) % Sodium (137-145) mmol/L Chloride (98-107) mmol/L Carbon Dioxide (22-30) mmol/L BUN (9-20) mg/dL Creatinine (0.66-1.25) mg/dL Glucose (74-99) mg/dL POC Glucose (mg/dL) 190 H 185 H 178 H (75-99) mg/dL 04/01/19 Range/Units 09:09 WBC (3.8-10.6) k/uL RBC (4.30-5.90) m/uL Hgb (13.0-17.5) gm/dL Hct (39.0-53.0) % RDW (11.5-15.5) % Neutrophils # (1.3-7.7) k/uL Lymphocytes # (1.0-4.8) k/uL APTT (22.0-30.0) sec ABG pCO2 (35-45) mmHg ABG HCO3 (21-25) mmol/L ABG O2 Saturation (94-97) % Sodium (137-145) mmol/L Chloride (98-107) mmol/L Carbon Dioxide (22-30) mmol/L BUN (9-20) mg/dL Creatinine (0.66-1.25) mg/dL Glucose (74-99) mg/dL POC Glucose (mg/dL) 149 H (75-99) mg/dL Microbiology - Last 24 Hours (Table) 03/28/19 13:05 Blood Culture - Preliminary Blood No Growth after 96 hours Assessment and Plan (1) Small bowel infarction Status: Acute Code(s): K55.029 - ACUTE INFARCTION OF SMALL INTESTINE, EXTENT UNSPECIFIED SNOMED Code(s): 081290417 (2) COPD (chronic obstructive pulmonary disease) with emphysema Status: Acute Code(s): J43.9 - EMPHYSEMA, UNSPECIFIED SNOMED Code(s): 44302898 (3) Sepsis associated hypotension Status: Acute Code(s): A41.9 - SEPSIS, UNSPECIFIED ORGANISM; I95.9 - HYPOTENSION, UNSPECIFIED SNOMED Code(s): 01136925 (4) Ischemic cardiomyopathy Status: Acute Code(s): I25.5 - ISCHEMIC CARDIOMYOPATHY SNOMED Code(s): 335249239 (5) Ventilator dependent Status: Acute Code(s): Z99.11 - DEPENDENCE ON RESPIRATOR [VENTILATOR] STATUS SNOMED Code(s): 772664700 (6) Respiratory failure Status: Acute Code(s): J96.90 - RESPIRATORY FAILURE, UNSP, UNSP W HYPOXIA OR HYPERCAPNIA SNOMED Code(s): 029532967 (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
--- NOTE | 2019-04-01 11:03 | PN ---
PROGRESS NOTE PULMONARY/CRITICAL CARE PROGRESS NOTE: DATE OF SERVICE: April 01, 2019 CRITICAL CARE TIME: 33 minutes. This is a patient who was admitted way back on March 13. At that time, he was admitted with a diagnosis of three-vessel coronary artery disease. The patient ended up being intubated on March 21 because he went to the operating room because of bowel obstruction. He had an exploratory laparotomy as well as a small bowel resection and jejunostomy. The surgery was done by Dr. Hayes. Unfortunately, the patient has been on the ventilator since. He was previously evaluated for bypass surgery by one of the cardiothoracic surgeons, I believe Dr. Pop. Anyway, the patient remains on the mechanical ventilator and has not really had any successful weaning or attempts at weaning towards extubation. His vent settings include the volume assist-control mode rate of 16, tidal volume 500, FiO2 of 40%, PEEP of 5. Blood gases show pO2 of 99, pCO2 of 29, and pH 7.40. This is consistent with normoxemia and a mixed acid-base disturbance including a combined respiratory alkalosis and metabolic acidosis. He is currently on heparin via weight based protocol, propofol at 10 mcg/kg per minute, insulin at 3.5 units an hour, 0.9 at 10 mL an hour, Vital AF 1.2 at 42 with a goal of 42 mL an hour. The nurse informs me that there is a chance that the family would consider terminal extubation with comfort measures. They have not made that decision as yet. Currently, the patient is resting comfortably. He has got very poor mental status. He responds very poorly to painful stimuli. Does not respond to any verbal stimuli. He is currently postop day #11 from his surgery on March 21. Again that includes exploratory laparotomy and small bowel resection with jejunostomy. PHYSICAL EXAMINATION: VITAL SIGNS: Vital signs are reviewed. Temperature is 98.5, heart rate is 106, respiratory rate 26, blood pressure 110/61 with mean 77, and saturations are between 96% and 97%. GENERAL: Appears in no acute distress. Currently sedated with propofol. Poorly responsive even off propofol. HEENT: Examination is grossly unremarkable. There is an orally placed endotracheal tube and NG tube. NECK: Supple. Full range of motion. No adenopathy. CARDIOVASCULAR: Examination reveals tachycardia. Heart rate 106. It is regular. S1, S2 normal. LUNGS: Reveal coarse rhonchi throughout. Breath sounds equal. No crackles or wheezes. ABDOMEN: Soft. Bowel sounds are noted. There is a jejunostomy noted. EXTREMITIES: Are intact. Mild edema. SKIN: Without rash. NEUROLOGIC: Examination is difficult to assess given the fact he is on propofol. He responds very poorly even off of propofol according to the nurses. Chest x-ray was done today. It shows bilateral pleural effusions. Fluid in the minor fissure. Minimal cephalization. LABS: Labs are reviewed. White count 20.2, hemoglobin 8.5, hematocrit 26.4, platelet count 363,000. His PTT is 64.2. Sodium 150, potassium 3.9, chloride 122, CO2 is 19. Anion gap is 9. BUN and creatinine were 58 and 2.35. Microbiology showing evidence of Mayelin albicans and Klebsiella oxytoca in the sputum from March 28 and Mayelin from the sputum on March 14. MEDICATIONS: Medications are reviewed. ASSESSMENT: 1. Postoperative day #11, status post exploratory laparotomy with small bowel resection and jejunostomy for acute bowel ischemia. 2. Routine postoperative ventilator management without movement towards weaning and extubation. 3. Severe multivessel coronary artery disease with non ST-segment elevation myocardial infarction. 4. Ischemic cardiomyopathy with an ejection fraction of 35%. 5. Congestive heart failure. 6. Severe pulmonary hypertension. 7. Moderate to severe mitral regurgitation. 8. Type 2 diabetes mellitus. 9. Polycystic kidney disease. 10.History of chronic obstructive pulmonary disease from previous chronic tobacco use. 11.Stage 3 chronic kidney disease. 12.Benign essential hypertension. 13.Possible nosocomial pneumonia. 14.Paroxysmal atrial fibrillation with rapid ventricular response. 15.Acute pulmonary edema secondary to systolic congestive heart failure. 16.Severe metabolic encephalopathy suggested on EEG. 17.Klebsiella oxytoca pneumonia. PLAN: There is some consideration by the family that they may decide to terminally wean the patient and move on to comfort measures. If they decide not to, the patient should end up with a tracheostomy and a feeding tube. Currently, the patient is on heparin via weight based protocol, propofol at 10 mcg/kg per minute, insulin at 3.5 units an hour. The vent is appropriately adjusted. It does show a combination of both normoxemia and mixed acid-base disturbance with a respiratory alkalosis/metabolic acidosis. The patient is postop day #11 status post exploratory laparotomy with a small bowel resection and jejunostomy for ischemic bowel. His overall prognosis remains very guarded. No additional recommendations are made. We will continue to follow. He is a NO CODE patient. Medications are reviewed. Prognosis is poor. CRITICAL CARE TIME: 33 minutes. MILENA / FREDY: [id number] /
[2019-04-01 12:33] VITALS: TEMP 98.9
[2019-04-01 13:42] VITALS: BP 97/72; PULSE 129; RESP 22
[2019-04-01] MEDS: DILTIAZEM 125 MG in SODIUM CHLORIDE 0.9% 100 ML IV SCH (13:47)
--- NOTE | 2019-04-01 17:27 | P.PN ---
Subjective Progress Note Date: 04/01/19 This 73-year-old gentleman is is still intubated. Attempt to extubate him yesterday resultant tachypnea and tachycardia. Another weaning trial will be done today. He is in paroxysmal atrial fibrillation. I'm going to initiate him on beta luisa along with increasing the dose of the Po amiodarone. Patient has received Lasix and had some urine output yesterday. His creatinine is 1.8. Continue the rest of the medication. 03/25/2019: This is 73 old gentleman was admitted after cardiac catheterization for hydration. 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 Subsequently, patient developed findings consistent CHF and non-STEMI. He also developed atrial fibrillation with a rapid ventricular response. Subsequently was noted to have ischemic bowel and had surgery done. Patient seemed to be Hemodynamically stable at this time. His weaning attempts resultant tachypnea and tachycardia. Patient's adrenal function symptomatically improving. Creatinine is 1.8. The chest x-ray also shows improvement. CBC shows elevated white count. Could be related to steroids. We'll continue current medical therapy. Another attempt will be made to wean him off the respirator. 03/26/2019: This patient is still in intensive care unit intubated and sedated. Apparently there is concerned about her neurological status. He will not stopping the sedation for 2 hours, patient remained unresponsive. Computed tomography scan showed cerebral atrophy. MRI scan is being recommended. Neurology consult is pending. Patient is maintaining sinus rhythm on amiodarone. Overall his prognosis seems to be guarded. We'll continue current medical therapy. Pulmonology has updated the patient's family. 03/27/2019: This patient is still intubated. There is a question about is her neurological status. Neurology consult is pending. Hemodynamically patient is back in atrial fibrillation with moderately fast and corresponds. I'm going to increase the dose of the metoprolol. Patient is already on anticoagulation. Chest x-ray shows some improvement. Attempts at weaning seems to resultant t achypnea and tachycardia. Patient may need a tracheostomy. Overall prognosis is guarded 03/28/2019: Patient is still intubated. Weaning attempts were unsuccessful. Patient becomes tachypneic and tachycardic. Pt is in atrial fibrillation. Patient was started on IV Cardizem last night and apparently developed Sigmund bradycardia. Patient is back on a IV Cardizem. His heart rate is in the 110 range. He is also not effective.. His neurological status is in doubt. Patient needs an MRI which cannot be done. Patient maintained a tracheostomy and also PEG tube. Family is not in favor of these measures. May consider hospice care. Meanwhile we'll continue current medical therapy. Prognosis appears to be poor. 03/29/2019: This patient was admitted with relief for outpatient cardiac catheterization. Was found to have significant coronary artery disease involving the 3 vessels including proximal LAD. Had FFR of the LAD lesion to confirm the significance. Patient was being considered for revascularization and was seen by her cardiac surgeons also. Unfortunately subsequently developed CHF, non-STEMI episodes of atrial fibrillation and also small bowel obstruction. Underwent surgery for small bowel obstruction. Patient has been intubated for a long time. Attempts at weaning, resultant tachypnea and tachycardia. Also requiring pressors for blood pressure support. She has been on anticoagulation but has been going in and out of atrial fibrillation. Patient's may need tracheostomy and PEG tube but family is not inclined. Prognosis appears to be poor. Possibility of possible hospice care. 04/01/2019: This patient was admitted for evaluation of coronary artery disease. Subsequently developed non-STEMI, congestive heart failure, atrial fibrillation followed by small bowel obstruction requiring surgery. Patient neurological status deteriorated. Patient had a prolonged course in the hospital. Patient's family may decide for comfort care. Otherwise patient may require tracheostomy. Most probably, he'll be made comfort care, today Objective - Vital Signs Vital signs: Vital Signs Temp 98.9 F 04/01/19 08:00 Pulse 129 H 04/01/19 13:30 Resp 22 04/01/19 13:30 BP 97/72 04/01/19 13:30 Pulse Ox 95 04/01/19 13:30 Intake & Output 03/31/19 04/01/19 04/01/19 18:59 06:59 18:59 Intake Total 5784.308 3892.211 847.117 Output Total 1830 2230 1215 Balance -411.686 -1181.789 -367.883 Weight 76 kg 76 kg Intake: IV 305 345 258 .9 130 245 140 0.9% Pressure bag 18 DAPTOmycin 500 mg In 50 Sodium Chloride 0.9% 50 ml @ 100 mls/hr IVPB Q48H [facility] Rx#:[id number] Piperacillin-Tazobactam 3 125 100 100 .375 gm In Sodium Chloride 0.9% 100 ml @ 25 mls/hr IVPB Q8HR [facility] Rx# :[id number] Intake, IV Titration 621.314 66.211 349.117 Amount Anidulafungin 100 mg In 100 Sodium Chloride 0.9% 100 ml @ 84 mls/hr IVPB Q24H [facility] Rx#:[id number] Heparin Sod,Pork in 0.45% 231.279 239.556 NaCl 25,000 unit In 0.45 % NaCl 1 250ml.bag @ 12 UNITS/KG/HR 8.712 mls/hr IV .Q24H [facility] Rx#: [id number] Insulin Regular 100 unit 53.960 16.959 In Sodium Chloride 0.9% 100 ml @ Per Protocol IV .Q0M [facility] Rx#:[id number] Norepinephrine 8 mg In 62.446 12.251 Sodium Chloride 0.9% 250 ml @ 0.05 MCG/KG/MIN 7.44 mls/hr IV .Q24H [facility] Rx#: [id number] Piperacillin-Tazobactam 3 100 .375 gm In Sodium Chloride 0.9% 100 ml @ 25 mls/hr IVPB Q8HR [facility] Rx# :[id number] Propofol 1,000 mg In 127.589 92.602 Empty Bag 1 bag @ Titrate IV .Q0M [facility] Rx#: [id number] Tube Feeding 462 547 210 Other 30 90 30 Output: Drainage 1200 Left upper quadrant 1200 ostomy Urine 630 1130 665 Stool 1100 550 Other: Voiding Method Indwelling Catheter Indwelling Catheter Indwelling Catheter # Voids 1 ABP, PAP, CO, CI - Last Documented Arterial Blood Pressure 75/38 - Exam GENERAL EXAM: Patient is intubated HEENT: Normocephalic. NECK: No masses, no nuchal rigidity. CHEST: No chest wall deformity. LUNGS: Diminished breath sounds at bases HEART: S1 and S2 normal. Irregular heart rhythm ABDOMEN: No hepatosplenomegaly, normal bowel sounds, no guarding or rigidity. SKIN: No rashes CENTRAL NERVOUS SYSTEM: Not assessed EXTREMITIES: No cyanosis, clubbing or edema. - Labs CBC & Chem 7: 04/01/19 05:00 04/01/19 05:00 Labs: Abnormal Lab Results - Last 24 Hours (Table) 03/31/19 03/31/19 03/31/19 Range/Units 17:55 19:09 19:57 WBC (3.8-10.6) k/uL RBC (4.30-5.90) m/uL Hgb (13.0-17.5) gm/dL Hct (39.0-53.0) % RDW (11.5-15.5) % Neutrophils # (1.3-7.7) k/uL Lymphocytes # (1.0-4.8) k/uL APTT (22.0-30.0) sec ABG pCO2 (35-45) mmHg ABG HCO3 (21-25) mmol/L ABG O2 Saturation (94-97) % Sodium (137-145) mmol/L Chloride (98-107) mmol/L Carbon Dioxide (22-30) mmol/L BUN (9-20) mg/dL Creatinine (0.66-1.25) mg/dL Glucose (74-99) mg/dL POC Glucose (mg/dL) 167 H 174 H 156 H (75-99) mg/dL 03/31/19 03/31/19 03/31/19 Range/Units 20:52 22:01 23:00 WBC (3.8-10.6) k/uL RBC (4.30-5.90) m/uL Hgb (13.0-17.5) gm/dL Hct (39.0-53.0) % RDW (11.5-15.5) % Neutrophils # (1.3-7.7) k/uL Lymphocytes # (1.0-4.8) k/uL APTT (22.0-30.0) sec ABG pCO2 (35-45) mmHg ABG HCO3 (21-25) mmol/L ABG O2 Saturation (94-97) % Sodium (137-145) mmol/L Chloride (98-107) mmol/L Carbon Dioxide (22-30) mmol/L BUN (9-20) mg/dL Creatinine (0.66-1.25) mg/dL Glucose (74-99) mg/dL POC Glucose (mg/dL) 171 H 145 H 149 H (75-99) mg/dL 03/31/19 04/01/1904/01/19 Range/Units 23:50 01:01 01:54 WBC (3.8-10.6) k/uL RBC (4.30-5.90) m/uL Hgb (13.0-17.5) gm/dL Hct (39.0-53.0) % RDW (11.5-15.5) % Neutrophils # (1.3-7.7) k/uL Lymphocytes # (1.0-4.8) k/uL APTT (22.0-30.0) sec ABG pCO2 (35-45) mmHg ABG HCO3 (21-25) mmol/L ABG O2 Saturation (94-97) % Sodium (137-145) mmol/L Chloride (98-107) mmol/L Carbon Dioxide (22-30) mmol/L BUN (9-20) mg/dL Creatinine (0.66-1.25) mg/dL Glucose (74-99) mg/dL POC Glucose (mg/dL) 164 H 166 H 190 H (75-99) mg/dL 04/01/19 04/01/19 04/01/19 Range/Units 02:54 03:55 05:00 WBC 20.2 H (3.8-10.6) k/uL RBC 3.07 L (4.30-5.90) m/uL Hgb 8.5 L (13.0-17.5) gm/dL Hct 26.4 L (39.0-53.0) % RDW 15.6 H (11.5-15.5) % Neutrophils # 19.0 H (1.3-7.7) k/uL Lymphocytes # 0.4 L (1.0-4.8) k/uL APTT (22.0-30.0) sec ABG pCO2 (35-45) mmHg ABG HCO3 (21-25) mmol/L ABG O2 Saturation (94-97) % Sodium (137-145) mmol/L Chloride (98-107) mmol/L Carbon Dioxide (22-30) mmol/L BUN (9-20) mg/dL Creatinine (0.66-1.25) mg/dL Glucose (74-99) mg/dL POC Glucose (mg/dL) 179 H 184 H (75-99) mg/dL 04/01/19 04/01/19 04/01/19 Range/Units 05:00 05:00 05:00 WBC (3.8-10.6) k/uL RBC (4.30-5.90) m/uL Hgb (13.0-17.5) gm/dL Hct (39.0-53.0) % RDW (11.5-15.5) % Neutrophils # (1.3-7.7) k/uL Lymphocytes # (1.0-4.8) k/uL APTT 64.2 H (22.0-30.0) sec ABG pCO2 (35-45) mmHg ABG HCO3 (21-25) mmol/L ABG O2 Saturation (94-97) % Sodium 150 H (137-145) mmol/L Chloride 122 H (98-107) mmol/L Carbon Dioxide 19 L (22-30) mmol/L BUN 58 H (9-20) mg/dL Creatinine 2.35 H (0.66-1.25) mg/dL Glucose 195 H (74-99) mg/dL POC Glucose (mg/dL) 186 H (75-99) mg/dL 04/01/19 04/01/19 04/01/19 Range/Units 05:15 05:54 06:46 WBC (3.8-10.6) k/uL RBC (4.30-5.90) m/uL Hgb (13.0-17.5) gm/dL Hct (39.0-53.0) % RDW (11.5-15.5) % Neutrophils # (1.3-7.7) k/uL Lymphocytes # (1.0-4.8) k/uL APTT (22.0-30.0) sec ABG pCO2 29 L (35-45) mmHg ABG HCO3 18 L (21-25) mmol/L ABG O2 Saturation 97.4 H (94-97) % Sodium (137-145) mmol/L Chloride (98-107) mmol/L Carbon Dioxide (22-30) mmol/L BUN (9-20) mg/dL Creatinine (0.66-1.25) mg/dL Glucose (74-99) mg/dL POC Glucose (mg/dL) 190 H 185 H (75-99) mg/dL 04/01/19 04/01/19 Range/Units 08:10 09:09 WBC (3.8-10.6) k/uL RBC (4.30-5.90) m/uL Hgb (13.0-17.5) gm/dL Hct (39.0-53.0) % RDW (11.5-15.5) % Neutrophils # (1.3-7.7) k/uL Lymphocytes # (1.0-4.8) k/uL APTT (22.0-30.0) sec ABG pCO2 (35-45) mmHg ABG HCO3 (21-25) mmol/L ABG O2 Saturation (94-97) % Sodium (137-145) mmol/L Chloride (98-107) mmol/L Carbon Dioxide (22-30) mmol/L BUN (9-20) mg/dL Creatinine (0.66-1.25) mg/dL Glucose (74-99) mg/dL POC Glucose (mg/dL) 178 H 149 H (75-99) mg/dL Microbiology - Last 24 Hours (Table) 03/28/19 13:05 Blood Culture - Preliminary Blood No Growth after 96 hours Assessment and Plan (1) Triple vessel disease of the heart Status: Acute Code(s): I25.10 - ATHSCL HEART DISEASE OF [place] CORONARY ARTERY W/O ANG PCTRS SNOMED Code(s): 940047690 (2) Acute exacerbation of chronic obstructive airways disease Status: Acute Code(s): J44.1 - CHRONIC OBSTRUCTIVE PULMONARY DISEASE W (ACUTE) EXACERBATION SNOMED Code(s): 405280744 (3) Pulmonary edema Status: Acute Code(s): J81.1 - CHRONIC PULMONARY EDEMA SNOMED Code(s): 66760695 Plan: Continue current medical management. Patient's family may consider comfort care
--- NOTE | 2019-04-01 17:28 | P.DS ---
Providers Date of admission: 03/14/19 11:11 Attending physician: Meme Price Consults: 03/14/19 07:59 Consult Physician Urgent Consulting Provider: Radames Aguiar Consult Reason/Comments: sob, chf Do you want consulting provider notified?: Yes 03/14/19 11:16 Consult Physician Urgent Consulting Provider: Home Doan Consult Reason/Comments: cad Do you want consulting provider notified?: Yes 03/19/19 00:11 Consult Physician Routine Consulting Provider: Jed Hayes Consult Reason/Comments: Abdominal distention/pain Do you want consulting provider notified?: Yes, Notify in am 03/22/19 10:57 Consult Physician Routine Consulting Provider: Irving Powell Consult Reason/Comments: perforated bowel Do you want consulting provider notified?: Yes 03/26/19 20:23 Consult Physician Stat Consulting Provider: Jami Amaral Consult Reason/Comments: no neuro response while off propofol Do you want consulting provider notified?: Already Contacted 03/28/19 08:41 Consult Physician Routine Consulting Provider: Kathleen Soliman Consult Reason/Comments: reconsult due to increasing WBC, abx recommendations Do you want consulting provider notified?: Yes Primary care physician: Rigo Aranda Hospital Course: Diagnoses: End-of-life care, hospice care. Upon request of the family. Septic shock patient is on pressor support and the sepsis secondary to ischemic bowel. Patient started having fever again repeat blood cultures were obtained and daptomycin was started to cover gram-positive organisms patient is already on Zosyn. Patient remains intubated no syncope in changes in his clinical condition neurology evaluated the patient as well. Patient does have pulmonary edema and is in atrial fibrillation. CAT scan of the head is concerning for subacute hematoma because of which neurology will evaluate the patient. EEG will be obtained -Coronary artery disease severe multivessel 33 vessel disease patient had dyspnea for 40-45% with mitral regurgitation, patient is bit volume overloaded receiving Lasix at this time IV fluids were cut down to 20 mL per hour patient is on antiplatelet statin for this -Proximal A. fib presently sinus rhythm with PVCs and patient is on amiodarone oral which will be continued -Ventilator dependent respiratory failure secondary to sepsis management as per pulmonology -Severe pulmonary hypertension -Hyperlipidemia -Type 2 diabetes mellitus continue with present regimen -Chronic kidney disease stage III with some acute kidney injury from sepsis and acute tubular necrosis chronic kidney disease secondary to diabetic nephropathy Acute renal failure: Secondary to acute tubular necrosis and prerenal azotemia which is improving -COPD with acute exacerbation -Polycystic kidney disease -Hypertension patient is presently hypotensive and is in shock -History of bladder cancer with TURP in the past Hospital course: Patient is status post laparotomy for a small wall ischemia consider necrosis. The patient the surgical risk is very high as it wasn't emergent surgery patient underwent surgery and patient is presently intubated patient in shock broad- spectrum antibiotics patient on propofol and norepinephrine. Patient was having a low-grade temperatures and patient is presently receiving TPN for nutritional support. Patient has colostomy as well patient has a major three-vessel disease and patient was in A. fib patient of the proximal A. fib presently on amiodarone wasn't is sinus rhythm was sinus tachycardia. Does have history of chronic kidney disease stage III from polycystic kidney 03/23/2019 No significant change in clinical condition patient remains on norepinephrine remains intubated. Patient urine output is good patient remains on normal saline at 100 mL per hour. 03/24/2019 Patient is bit more awake today weaning of sedation although patient did undergo spontaneous breathing trial yet today. Patient is still on norepinephrine, IV heparin, IV normal saline which is cut down to 20 mL now patient actually received Lasix with the good urine output. 03/25/2019 Patient is norepinephrine is being weaned off, patient is presently receiving IV Lasix patient has small left pleural effusion creatinine although improved to 1.86 sedation is being discontinued and patient will undergo weaning trial. 03/26/2019 patient's propofol was discontinued in spite of which the patient is not responding as expected by the human resources operations specialist because of which patient underwent CAT scan of the head. CAT scan didn't show any intracranial bleed but sed rate cannot rule out subacute ischemia and recommended an MRI and neurology was subsequently consulted. Patient is still on norepinephrine, heparin drip and insulin drip. Not sure patient will need to continue the antibiotics will discuss with infectious disease 03/27/2019 Patient remains mechanically intubated patient is not responding well in spite of aggressive therapy considering his age and overall medical problems probably hospice and comfort care is more appropriate choice. Neurology is evaluating the patient. EEG is being will be obtained patient remains on propofol occasionally breathing over the ventilator patient does have cough reflex gag reflex. 03/28/2019 Patient has worsening leukocytosis because of which abdominal CAT scan is being obtained to rule out any intra-abdominal abscess. Patient is not doing well overall patient does have pulmonary edema started having fevers again patient remains on broad-spectrum antibiotics. As patient's sputum cultures are positive for Mayelin albicans. Patient remains on Zosyn. Repeat blood cultures will be obtained infectious disease will be consulted patient will be started on vancomycin. remains intubated patient is presently on Cardizem drip. Patient is also on amiodarone 03/29/2019 Patient remains on all the above-mentioned drips as yesterday. No significant improvement in his clinical condition except for some improvement in his serum creatinine. In spite of aggressive therapy and aggressive treatment patient did not recover well the chance of his reasonable recovery is very low. Even he recovers patient will not be a candidate for coronary artery bypass grafting without which patient's quality of life will be poor and frequent anginal episodes. Because of these reasons I believe patient is more appropriate for hospice. 03/30/2019 Patient was in the ICU intubated and sedated. Patient could not provide information.patient stillpatient still tachycardic of 121-138, he has a fever today of 100F, blood pressure 112/60 and his oxygen saturation 96% on FiO2 of 4 0%. He has leukocytosis of 20 4.3K.sugar is controlled. Creatinine 2.0, which is at baseline.patient remains on heparin drip and Zosyn, antifungal eraxis added today. He is on amiodarone.also aspirin and pain management 03/31/2019 Patient remains in the ICU intubated and sedated. His converted to sinus rhythm and Cardizem has been stopped, he needed lordosis appropriate affect. His sedation is been lowered slowly but patient still unresponsive. Family were thinking about tracheostomy and PEG tube placement however family are considering also extubation in 1-2 days for possible comfort measures if no improvement 04/01/2019 Patient family eventually decided to go with comfort care which looks eligible given the patient condition and lack of improvement with his complexity of medical problems. Pulmonary team are aware and they ordered hospice consult. When I stepped in to the room epical family about 15-20 family member were at bedside and they confirmed to me that decision for comfort care/hospice. Discussed with staff. Hospice nurse evaluate the patient and patient Accepted for hospice care Review of systems: Unable to obtain due to his clinical condition Plan - Discharge Summary Discharge Rx Participant: Yes New Discharge Prescriptions: No Action Omeprazole [PriLOSEC] 20 mg PO DAILY Fenofibrate Nanocrystallized [Tricor] 145 mg PO DAILY Aspirin EC [Ecotrin Low Dose] 81 mg PO DAILY glipiZIDE [Glucotrol] 10 mg PO AC-BID Simvastatin 40 mg PO HS Metoprolol Tartrate [Lopressor] 100 mg PO BID Linagliptin [Tradjenta] 5 mg PO DAILY Apixaban [Eliquis] 2.5 mg PO BID #60 tablet Furosemide [Lasix] 40 mg PO DAILY #30 tab Lisinopril [Zestril] 10 mg PO DAILY #30 tab amLODIPine [Norvasc] 10 mg PO DAILY Fluticasone/Vilanterol [Breo Ellipta 200-25 Mcg INH] 1 inhalation INHALATION QAM hydrALAZINE HCL [Apresoline] 50 mg PO TID Isosorbide Mononitrate [Isosorbide Mononitrate ER] 30 mg PO DAILY Discharge Medication List Aspirin EC [Ecotrin Low Dose] 81 mg PO DAILY 01/26/18 [History] Fenofibrate Nanocrystallized [Tricor] 145 mg PO DAILY 01/26/18 [History] Linagliptin [Tradjenta] 5 mg PO DAILY 01/26/18 [History] Metoprolol Tartrate [Lopressor] 100 mg PO BID 01/26/18 [History] Omeprazole [PriLOSEC] 20 mg PO DAILY 01/26/18 [History] Simvastatin 40 mg PO HS 01/26/18 [History] glipiZIDE [Glucotrol] 10 mg PO AC-BID 01/26/18 [History] Apixaban [Eliquis] 2.5 mg PO BID #60 tablet 01/30/18 [Rx] Furosemide [Lasix] 40 mg PO DAILY #30 tab 01/30/18 [Rx] Lisinopril [Zestril] 10 mg PO DAILY #30 tab 01/30/18 [Rx] Fluticasone/Vilanterol [Breo Ellipta 200-25 Mcg INH] 1 inhalation INHALATION QAM 03/11/19 [History] Isosorbide Mononitrate [Isosorbide Mononitrate ER] 30 mg PO DAILY 03/11/19 [History] amLODIPine [Norvasc] 10 mg PO DAILY 03/11/19 [History] hydrALAZINE HCL [Apresoline] 50 mg PO TID 03/11/19 [History] Follow up Appointment(s)/Referral(s): Rigo Aranda MD [Primary Care Provider] - 2 Weeks Nico Joy DO [Doctor of Osteopathic Medicine] - 2 Weeks Meme Price MD [STAFF PHYSICIAN] - 2 Weeks Jed Hayes MD [STAFF PHYSICIAN] - 1 Week Discharge Disposition: [facility] TO HOSPICE MED FACILTY
== END 2019-04-01 14:22 | disposition hospice, inpatient (51) | DRG 264 ==
LOC: CATHCVL 07:26 → 1SOBS 10:18 → 2SICU 03-14 08:48 → CATHCVL 03-14 11:11
PROVIDERS: ADMIT Internal Medicine Cardiovascular Disease; ATTEND Internal Medicine Cardiovascular Disease
PROC: 4A023N7 Measurement of Cardiac Sampling and Pressure, Left Heart, Percutaneous Approach (ICD-10-PCS; 2019-03-13)
PROC: B2111ZZ Fluoroscopy of Multiple Coronary Arteries using Low Osmolar Contrast (ICD-10-PCS; 2019-03-13)
PROC: 4A033BC Measurement of Arterial Pressure, Coronary, Percutaneous Approach (ICD-10-PCS; 2019-03-13)
PROC: B44HZZZ Ultrasonography of Bilateral Lower Extremity Arteries (ICD-10-PCS; 2019-03-14)
PROC: 5A09457 Assistance with Respiratory Ventilation, 24-96 Consecutive Hours, Continuous Positive Airway Pressure (ICD-10-PCS; 2019-03-14)
PROC: 0D9670Z Drainage of Stomach with Drainage Device, Via Natural or Artificial Opening (ICD-10-PCS; 2019-03-18)
PROC: B246ZZ4 Ultrasonography of Right and Left Heart, Transesophageal (ICD-10-PCS; 2019-03-18)
PROC: 0DBA0ZZ Excision of Jejunum, Open Approach (ICD-10-PCS; 2019-03-21)
PROC: 0D1A0Z4 Bypass Jejunum to Cutaneous, Open Approach (ICD-10-PCS; 2019-03-21)
PROC: 5A1955Z Respiratory Ventilation, Greater than 96 Consecutive Hours (ICD-10-PCS; 2019-03-21)
PROC: 02HV33Z Insertion of Infusion Device into Superior Vena Cava, Percutaneous Approach (ICD-10-PCS; 2019-03-21)
PROC: 3E0436Z Introduction of Nutritional Substance into Central Vein, Percutaneous Approach (ICD-10-PCS; 2019-03-21)
PROC: 0DTB0ZZ Resection of Ileum, Open Approach (ICD-10-PCS; principal; 2019-03-21 14:25)
DX: I13.0 Hypertensive heart and chronic kidney disease with heart failure and stage 1 through stage 4 chronic kidney disease, or unspecified chronic kidney disease (principal); I50.23 Acute on chronic systolic (congestive) heart failure; J96.01 Acute respiratory failure with hypoxia; K55.019 Acute (reversible) ischemia of small intestine, extent unspecified; K55.029 Acute infarction of small intestine, extent unspecified; I21.4 Non-ST elevation (NSTEMI) myocardial infarction; N17.0 Acute kidney failure with tubular necrosis; R65.21 Severe sepsis with septic shock; A41.9 Sepsis, unspecified organism; G92 Toxic encephalopathy; J15.0 Pneumonia due to Klebsiella pneumoniae; K63.1 Perforation of intestine (nontraumatic); K65.8 Other peritonitis; K56.609 Unspecified intestinal obstruction, unspecified as to partial versus complete obstruction; Q61.3 Polycystic kidney, unspecified; E87.4 Mixed disorder of acid-base balance; I48.92 Unspecified atrial flutter; J98.11 Atelectasis; Z66 Do not resuscitate; Z51.5 Encounter for palliative care; I25.10 Atherosclerotic heart disease of native coronary artery without angina pectoris; J43.9 Emphysema, unspecified; I27.20 Pulmonary hypertension, unspecified; G31.89 Other specified degenerative diseases of nervous system; E11.22 Type 2 diabetes mellitus with diabetic chronic kidney disease; N18.3 Chronic kidney disease, stage 3 (moderate); C61 Malignant neoplasm of prostate; I25.5 Ischemic cardiomyopathy; D64.9 Anemia, unspecified; N40.0 Benign prostatic hyperplasia without lower urinary tract symptoms; I49.3 Ventricular premature depolarization; I48.0 Paroxysmal atrial fibrillation; I08.1 Rheumatic disorders of both mitral and tricuspid valves; K57.30 Diverticulosis of large intestine without perforation or abscess without bleeding; K80.20 Calculus of gallbladder without cholecystitis without obstruction; E78.00 Pure hypercholesterolemia, unspecified; I65.23 Occlusion and stenosis of bilateral carotid arteries; R40.2363 Coma scale, best motor response, obeys commands, at hospital admission; R40.2143 Coma scale, eyes open, spontaneous, at hospital admission; R40.2253 Coma scale, best verbal response, oriented, at hospital admission; E78.5 Hyperlipidemia, unspecified; K21.9 Gastro-esophageal reflux disease without esophagitis; I25.2 Old myocardial infarction; F17.210 Nicotine dependence, cigarettes, uncomplicated; Z71.6 Tobacco abuse counseling; Z79.01 Long term (current) use of anticoagulants; Z79.82 Long term (current) use of aspirin; Z79.84 Long term (current) use of oral hypoglycemic drugs; Z79.51 Long term (current) use of inhaled steroids; Z79.899 Other long term (current) drug therapy; Z85.51 Personal history of malignant neoplasm of bladder; Z98.890 Other specified postprocedural states; Z82.49 Family history of ischemic heart disease and other diseases of the circulatory system
CPT/HCPCS: 70450; 71045; 71250; 74018; 74176; 80048; 80053; 80061; 80074; 80202; 81003; 82040; 82330; 82805; 83036; 83605; 83735; 84100; 84132; 84443; 84478; 84484; 85025; 85027; 85610; 85730; 87040; 87070; 87077; 87186; 87205; 88307; 93306; 93312; 93320; 93325; 93458; 93571; 93880; 93970; 94002; 94003; 94150; 94640; 94660; 95816

== ENCOUNTER 2019-04-01 10:19 | Inpatient (IN) | payer MEDICAID ==
[2019-04-01] MEDS ORDERED: DRY MOUTH SPRAY 44.3 SPRAY/44.3 ML SPRAY MUCOUS MEM PRN (13:55)
[2019-04-01] MEDS ORDERED: ACETAMINOPHEN SUPPOSITORY 650 MG SUPP RECTAL PRN (13:55)
[2019-04-01] MEDS ORDERED: LORazepam 2 MG/ML INJ IV PRN (13:55)
[2019-04-01] MEDS ORDERED: MORPHINE SULFATE 2 MG/ML SYRINGE IV PRN (13:55)
[2019-04-01] MEDS ORDERED: ONDANSETRON 4 MG/2 ML VIAL IVP PRN (13:55)
[2019-04-01] MEDS ORDERED: GLYCOPYRROLATE 0.2 MG/ML 2 ML VIAL IVP PRN (13:55)
[2019-04-01] MEDS ORDERED: ATROPINE OPHTH SOLN 1% 5ML BTL SUBLINGUAL PRN (13:55)
[2019-04-01] MEDS ORDERED: ARTIFICIAL TEARS-HYPROMELLOSE DROPS 15 ML BTL BOTH EYES PRN (13:55)
[2019-04-01] MEDS ORDERED: MORPHINE SULFATE 2 MG/ML SYRINGE IVP ONE (13:55)
[2019-04-01] MEDS ORDERED: SCOPOLAMINE 1.5MG/72HR PATCH TRANSDERM SCH (14:15)
[2019-04-01] MEDS ORDERED: MORPHINE SULFATE (100 MG/2 ML) 100 MG in SODIUM CHLORIDE 0.9% 100 ML IV SCH (14:30)
[2019-04-01] MEDS ORDERED: SODIUM CHLORIDE 0.9% IV SCH (18:00)
[2019-04-01] MEDS ORDERED: MORPHINE SULFATE IV SCH (18:00)
--- NOTE | 2019-04-02 06:48 | P.HPIM ---
History of Present Illness this is combined H&P and discharge summary Dx: -Septic shock patient is on pressor support and the sepsis secondary to ischemic bowel. . Patient was intubated no syncope in changes in his clinical condition neurology evaluated pt - Patient does have pulmonary edema and is in atrial fibrillation. -CAT scan of the head is concerning for subacute hematoma -Coronary artery disease severe multivessel 33 vessel disease patient had dyspnea for 40-45% with mitral regurgitation, patient is bit volume overloaded receiving Lasix at this time IV fluids were cut down to 20 mL per hour patient is on antiplatelet statin for this -Proximal A. fib presently sinus rhythm with PVCs and patient is on amiodarone oral which will be continued -Ventilator dependent respiratory failure secondary to sepsis management as per pulmonology -Severe pulmonary hypertension -Hyperlipidemia -Type 2 diabetes mellitus continue with present regimen -Chronic kidney disease stage III with some acute kidney injury from sepsis and acute tubular necrosis chronic kidney disease secondary to diabetic nephropathy Acute renal failure: Secondary to acute tubular necrosis and prerenal azotemia which is improving -COPD with acute exacerbation -Polycystic kidney disease -Hypertension patient is presently hypotensive and is in shock -History of bladder cancer with TURP in the past pt was initially admitted for non STEMI, and other medical problems as above, he was intubated in the ICU with no improvement , he had complex medical problem and course in the hospital , please see my discharge summary from the (Discharge summary ) from 04/01/2019 when he was made comfort care by the family , eventually pt was extubated and family were requesting . eventually pt as expected Past Medical History Past Medical History: Atrial Fibrillation, Coronary Artery Disease (CAD), COPD, Diabetes Mellitus, GERD/Reflux, Hyperlipidemia, Myocardial Infarction (CA), Prostate Disorder, Renal Disease Additional Past Medical History / Comment(s): CA x 2, see Dr Price H&P, renal failure, diff urinating due to enlarged prostate, hx bladder cancer, paroxysmal atrial fibrillation on Eliquis Last Myocardial Infarction Date:: 01/2018 History of Any Multi-Drug Resistant Organisms: None Reported Past Surgical History: Heart Catheterization, Hernia Repair, Orthopedic Surgery Additional Past Surgical History / Comment(s): surgery to remove bladder tumor, rt shoulder surgery, Past Anesthesia/Blood Transfusion Reactions: No Reported Reaction Smoking Status: Current every day smoker Past Alcohol Use History: None Reported Past Drug Use History: None Reported - Past Family History Brother(s) Family Medical History: Coronary Artery Disease (CAD) Mother Family Medical History: No Reported History Medications and Allergies Home Medications Medication Instructions Recorded Confirmed Type Aspirin EC [Ecotrin Low Dose] 81 mg PO DAILY 01/26/18 04/01/19 History Fenofibrate Nanocrystallized 145 mg PO DAILY 01/26/18 04/01/19 History [Tricor] Linagliptin [Tradjenta] 5 mg PO DAILY 01/26/18 04/01/19 History Metoprolol Tartrate [Lopressor] 100 mg PO BID 01/26/18 04/01/19 History Omeprazole [PriLOSEC] 20 mg PO DAILY 01/26/18 04/01/19 History Simvastatin 40 mg PO HS 01/26/18 04/01/19 History glipiZIDE [Glucotrol] 10 mg PO AC-BID 01/26/18 04/01/19 History Apixaban [Eliquis] 2.5 mg PO BID #60 tablet 01/30/18 04/01/19 Rx Furosemide [Lasix] 40 mg PO DAILY #30 tab 01/30/18 04/01/19 Rx Lisinopril [Zestril] 10 mg PO DAILY #30 tab 01/30/18 04/01/19 Rx Fluticasone/Vilanterol [Breo 1 inhalation INHALATION QAM 03/11/19 04/01/19 History Ellipta 200-25 Mcg INH] Isosorbide Mononitrate [Isosorbide 30 mg PO DAILY 03/11/19 04/01/19 History Mononitrate ER] amLODIPine [Norvasc] 10 mg PO DAILY 03/11/19 04/01/19 History hydrALAZINE HCL [Apresoline] 50 mg PO TID 03/11/19 04/01/19 History Allergies Allergy/AdvReac Type Severity Reaction Status Date / Time No Known Allergies Allergy Verified 04/01/19 15:20 Physical Exam Vitals: Intake and Output 04/01/19 04/01/19 04/02/19 14:59 22:59 06:59 Intake Total 0.221 205.621 Output Total 155 Balance 0.221 50.621 Intake: IV 100 0.9 Normal Saline 100 Intake, IV Titration 0.221 105.621 Amount Morphine Sulfate (100 mg/ 0.221 90.321 2 ml) 100 mg In Sodium Chloride 0.9% 100 ml @ 1 MG/HR 1.02 mls/hr IV . Q24H [facility] Rx#:[id number] Morphine Sulfate (100 mg/ 15.3 2 ml) 200 mg In Sodium Chloride 0.9% 100 ml @ 1 MG/HR 0.51 mls/hr IV . Q24H [facility] Rx#:[id number] Output: Urine 55 Stool 100 Other: Voiding Method Indwelling Catheter Weight 76 kg
== END 2019-04-01 19:30 | disposition expired | DRG 951 ==
LOC: 2SICU 14:25
PROVIDERS: ADMIT Family Medicine; ATTEND Family Medicine
DX: Z51.5 Encounter for palliative care (principal); A41.9 Sepsis, unspecified organism; I21.4 Non-ST elevation (NSTEMI) myocardial infarction; J96.90 Respiratory failure, unspecified, unspecified whether with hypoxia or hypercapnia; N17.0 Acute kidney failure with tubular necrosis; R65.21 Severe sepsis with septic shock; J44.1 Chronic obstructive pulmonary disease with (acute) exacerbation; K55.9 Vascular disorder of intestine, unspecified; Q61.3 Polycystic kidney, unspecified; Z99.11 Dependence on respirator [ventilator] status; E11.22 Type 2 diabetes mellitus with diabetic chronic kidney disease; E78.5 Hyperlipidemia, unspecified; E87.70 Fluid overload, unspecified; F17.210 Nicotine dependence, cigarettes, uncomplicated; Z66 Do not resuscitate; I12.9 Hypertensive chronic kidney disease with stage 1 through stage 4 chronic kidney disease, or unspecified chronic kidney disease; I25.10 Atherosclerotic heart disease of native coronary artery without angina pectoris; I25.2 Old myocardial infarction; I27.20 Pulmonary hypertension, unspecified; I34.0 Nonrheumatic mitral (valve) insufficiency; I48.0 Paroxysmal atrial fibrillation; I49.3 Ventricular premature depolarization; N18.3 Chronic kidney disease, stage 3 (moderate); N40.0 Benign prostatic hyperplasia without lower urinary tract symptoms; Z79.01 Long term (current) use of anticoagulants; Z79.82 Long term (current) use of aspirin; Z79.84 Long term (current) use of oral hypoglycemic drugs; Z79.899 Other long term (current) drug therapy; Z82.49 Family history of ischemic heart disease and other diseases of the circulatory system; Z85.51 Personal history of malignant neoplasm of bladder; Z90.79 Acquired absence of other genital organ(s)